=== PATIENT | male | born 1955 | race Caucasian/White ===

== ENCOUNTER → 2017-04-16 | Outpatient (CLI) | payer BC ==
[2017-04-16 08:20] LABS: Basophils # (A) 0.2 k/uL (0-0.2); Basophils % (A) 1 %; CH 31.7; CHCM 33.1; Eosinophils # (A) 0.4 k/uL (0-0.7); Eosinophils % (A) 3 %; HCT 49.5 % (39.0-53.0); HDW 2.68; Luc # (Auto) 0.24; Luc % (Auto) 2; Lymphocytes # (A) 3.5 k/uL (1.0-4.8); Lymphocytes % (A) 28 %; MCH 31.1 pg (25.0-35.0); MCHC 32.3 g/dL (31.0-37.0); MCV 96.3 fL (80.0-100.0); Mean Platelet Volume 9.8; Monocytes # (A) 0.7 k/uL (0-1.0); Monocytes % (A) 6 %; Neutrophils # (A) 7.6 k/uL (1.3-7.7); Neutrophils % (A) 60 %; RBC 5.14 m/uL (4.30-5.90); RDW 14.5 % (11.5-15.5); WBC 12.6 k/uL (3.8-10.6); WBC (Perox) 12.17
[2017-04-16 08:32] LABS: Appearance,Urine Clear (Clear); Bacteria,Urine Rare /hpf; Bilirubin,Urine Negative (Negative); Glucose,Urine (UA) Negative (Negative); Ketones,Urine Negative (Negative); Leukocyte Esterase,Urine Negative (Negative); Mucus,Urine Rare /hpf; Nitrite,Urine Negative (Negative); Particle Count 1411; Protein,Urine Trace (Negative); RBC,Urine <1 /hpf (0-5); Squamous Epithelial Cell,Urine <1 /hpf (0-4); UA Billing (MACRO vs. MICRO) MICRO; Urobilinogen,Urine <2.0 mg/dL (<2.0); WBC,Urine 1 /hpf (0-5)
[2017-04-16 10:36] LABS: ALT 21 U/L (21-72); AST 19 U/L (17-59); Alkaline Phosphatase 80 U/L (38-126); Anion Gap 8 mmol/L; Blood Urea Nitrogen 15 mg/dL (9-20); Calcium 9.6 mg/dL (8.4-10.2); Carbon Dioxide 26 mmol/L (22-30); Chloride 104 mmol/L (98-107); Cholesterol 121 mg/dL (<200); Creatine Kinase 73 U/L (55-170); Glucose 139 mg/dL (74-99); HDL Cholesterol 52 mg/dL (40-60); Non-African American GFR(MDRD) >60 (>60 ml/min/1.73 sqM); Potassium 5.3 mmol/L (3.5-5.1); Sodium 138 mmol/L (137-145); Total Bilirubin 0.4 mg/dL (0.2-1.3); Uric Acid 4.7 mg/dL (3.5-8.5)
[2017-04-16 11:02] LABS: Prostate Specific Antigen 0.25 ng/mL (0.00-4.00)
[2017-04-16 17:34] LABS: Urine Creatinine 142.6 mg/dL
== END | disposition home or self-care (01) ==
LOC: LABWHC1 07:50
PROVIDERS: ATTEND Internal Medicine
DX: E78.1 Pure hyperglyceridemia (principal); I10 Essential (primary) hypertension; I25.10 Atherosclerotic heart disease of native coronary artery without angina pectoris; E11.9 Type 2 diabetes mellitus without complications; N40.0 Benign prostatic hyperplasia without lower urinary tract symptoms
CPT/HCPCS: 36415; 80053; 80061; 81001; 82043; 82306; 82550; 82570; 83036; 84153; 84439; 84443; 84550; 85025

== ENCOUNTER → 2018-01-05 | Outpatient (CLI) | payer BC | END | disposition home or self-care (01) | LOC: SLEEP 15:51 | PROVIDERS: ATTEND Internal Medicine | DX: Z53.9 Procedure and treatment not carried out, unspecified reason (principal) ==

== ENCOUNTER → 2018-09-11 | Outpatient (CLI) | payer BC ==
--- NOTE | 2018-09-12 04:57 | US ---
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 TECHNIQUE: Carotid duplex ultrasound examination. Indirect Doppler criteria is utilized. FINDINGS: EXAM MEASUREMENTS: RIGHT: Peak Systolic Velocity (PSV) cm/sec ----- Right CCA: 64.5 ----- Right ICA: 82.2 ----- Right ECA: 181.3 ICA/CCA ratio: 1.3 RIGHT: End Diastole cm/sec ----- Right CCA: 16.1 ----- Right ICA: 26.0 ----- Right ECA: 24.8 LEFT: Peak Systolic Velocity (PSV) cm/sec ----- Left CCA: 85.4 ----- Left ICA: 83.3 ----- Left ECA: 156.7 ICA/CCA ratio: 1.0 LEFT: End Diastole cm/sec ----- Left CCA: 21.9 ----- Left ICA: 30.4 ----- Left ECA: 22.0 VERTEBRALS (direction of flow): Right Vertebral: not visualized Left Vertebral: Antegrade Rhythm: Normal Coat Room Attendant notes: Atherosclerotic changes in bilateral bulbs extending into both the ICA and ECA adeel aterally. Bilateral ECA velocities are elevated suggesting mild or moderate stenoses. IMPRESSION: Moderate atherosclerotic changes at both bifurcations without hemodynamically significant ICA stenosi s on either side. Criteria for Assigning % of Stenosis / Diameter reduction (Estimation based on the indirect measurements of the internal carotid artery velocities (ICA PSV). 1. Normal (no stenosis)=ICA PSV < 125 cm/s: ratio < 2.0: ICA EDV<40 cm/s. 2. Less than 50% stenosis=ICA PSV < 125 cm/s: ratio < 2.0: ICA EDV<40 cm/s. 3. 50 to 69% stenosis=ICA PSV of 125 to 230 cm/s: ration 2.0 ? 4.0: ICA EDV 40-100 cm/s. 4. Greater than 70% stenosis to near occlusion= ICA PSV > 230 cm/s: ratio > 4.0: ICA EDV > 100 cm/s. 5. Near occlusion= ICA PSV velocities may be low or undetectable: variable ratio and ICA EDV. 6. Total occlusion=unable to detect flow.
--- NOTE | 2018-09-12 11:27 | ECHOF ---
Referral Reason:I65.23 Occlusion and stenosis of bilat cartotids MEASUREMENTS -------- HEIGHT: 165.1 cm WEIGHT: 90.7 kg BP: RVIDd: 3.0 cm (< 3.3) IVSd: 1.3 cm (0.6 - 1.1) LVIDd: 3.7 cm (3.9 - 5.3) LVPWd: 1.4 cm (0.6 - 1.1) IVSs: 1.4 cm LVIDs: 3.2 cm LVPWs: 1.3 cm LA Diam: 3.9 cm (2.7 - 3.8) Ao Diam: 2.8 cm (2.0 - 3.7) AV Cusp: 0.8 cm (1.5 - 2.6) LA Diam: 4.0 cm (2.7 - 3.8) MV EXCURSION: 15.618 mm (> 18.000) MV EF SLOPE: 91 mm/s (70 - 150) EPSS: 0.3 cm MV E Johnny: 0.67 m/s MV DecT: 304 ms MV A Johnny: 1.00 m/s MV E/A Ratio: 0.67 AV maxP.45 mmHg AV meanP.33 mmHg RAP: 5.00 mmHg RVSP: 21.52 mmHg FINDINGS -------- Sinus rhythm. This was a technically adequate study. The left ventricular size is normal. There is mild concentric left ventricular hypertrophy. Overa ll left ventricular systolic function is normal with, an EF between 55 - 60 %. The right ventricle is normal in size. The left atrial size is normal. Aortic valve is trileaflet and is mildly thickened. There is mild aortic stenosis present. Peak/m jethro gradient across the Aortic Valve is 18.45mmHg / 10.33mmHg. Mild mitral annular calcification present. Mild mitral regurgitation is present. Mild tricuspid regurgitation present. There is no evidence of pulmonary hypertension. The right v entricular systolic pressure, as measured by Doppler, is 21.52mmHg. The aortic root size is normal. There is no pericardial effusion. CONCLUSIONS -------- 1. The left ventricular size is normal. 2. There is mild concentric left ventricular hypertrophy. 3. Overall left ventricular systolic function is normal with, an EF between 55 - 60 %. 4. The right ventricle is normal in size. 5. The left atrial size is normal. 6. Aortic valve is trileaflet and is mildly thickened. 7. There is mild aortic stenosis present. 8. Peak/mean gradient across the Aortic Valve is 18.45mmHg / 10.33mmHg. 9. Mild mitral annular calcification present. 10. Mild mitral regurgitation is present. 11. Mild tricuspid regurgitation present. 12. There is no evidence of pulmonary hypertension. 13. The right ventricular systolic pressure, as measured by Doppler, is 21.52mmHg. 14. The aortic root size is normal. 15. There is no pericardial effusion. ANDROID DEVELOPER: Jadyn Moore RDCS
== END | disposition home or self-care (01) ==
LOC: RADECHMAIN 14:47
PROVIDERS: ATTEND Internal Medicine
DX: I65.23 Occlusion and stenosis of bilateral carotid arteries (principal); I08.3 Combined rheumatic disorders of mitral, aortic and tricuspid valves
CPT/HCPCS: 93306; 93880

== ENCOUNTER → 2019-07-31 | Outpatient (CLI) | payer BC ==
[~2019-07-31] MED LIST: REGADENOSON 0.4 MG/5 ML SYRINGE IV ONE
[2019-07-31 09:35] LABS: Basophils # (A) 0.2 k/uL (0-0.2); Basophils % (A) 2 %; Eosinophils # (A) 0.4 k/uL (0-0.7); Eosinophils % (A) 5 %; HCT 47.4 % (39.0-53.0); HGB 15.4 gm/dL (13.0-17.5); Lymphocytes # (A) 2.6 k/uL (1.0-4.8); Lymphocytes % (A) 27 %; MCH 30.4 pg (25.0-35.0); MCHC 32.4 g/dL (31.0-37.0); MCV 93.8 fL (80.0-100.0); Mean Platelet Volume 10.7; Monocytes # (A) 0.6 k/uL (0-1.0); Monocytes % (A) 7 %; Neutrophils # (A) 5.6 k/uL (1.3-7.7); Neutrophils % (A) 58 %; Platelet Count 210 k/uL (150-450); RBC 5.05 m/uL (4.30-5.90); WBC 9.7 k/uL (3.8-10.6)
[2019-07-31 09:57] LABS: ALT 14 U/L (4-49); AST 26 U/L (17-59); African American GFR (CKD) >90 (>60 ml/min/1.73 sqM); Alkaline Phosphatase 71 U/L (38-126); Anion Gap 9 mmol/L; Blood Urea Nitrogen 19 mg/dL (9-20); Calcium 9.5 mg/dL (8.4-10.2); Carbon Dioxide 26 mmol/L (22-30); Chloride 106 mmol/L (98-107); Cholesterol 163 mg/dL (<200); Creatine Kinase 93 U/L (55-170); Glucose 116 mg/dL (74-99); HDL Cholesterol 44 mg/dL (40-60); LDL Cholesterol,Calculated 66 mg/dL (0-99); Non-African American GFR(CKD) 86 (>60 ml/min/1.73 sqM); Potassium 5.2 mmol/L (3.5-5.1); Sodium 141 mmol/L (137-145); Total Bilirubin 0.6 mg/dL (0.2-1.3); Total Protein 7.2 g/dL (6.3-8.2); Triglycerides 267 mg/dL (<150); Uric Acid 5.2 mg/dL (3.5-8.5)
[2019-07-31 10:12] LABS: T4, Free (Free Thyroxine) 1.03 ng/dL (0.78-2.19)
--- NOTE | 2019-07-31 14:03 | EST ---
EXERCISE STRESS AGE: 63 SEX: M HT: 64" WT: 200 PROTOCOL: Lexiscan Cardiolite Stress Test HEART RATE REST: 82 BLOOD PRESSURE REST: 143/83 MAXIMUM HEART RATE ACHIEVED: 102 MAXIMUM BLOOD PRESSURE: 158/76 INDICATIONS: Chest pain. CLINICAL INFORMATION: A Lexiscan Cardiolite study was performed. Resting EKG shows normal sinus rhythm with normal GA interval and QRS duration and normal ST-T waves. No ST-segment depression suggestive of ischemia is noted. Results of the nuclear study will follow. GUIL / IJN: [id number] /
--- NOTE | 2019-07-31 15:41 | NM ---
EXAMINATION TYPE: NM stress lexiscan cardiolite DATE OF EXAM: 07/31/2019 COMPARISON: NONE HISTORY: Angina of effort TECHNIQUE: After the intravenous administration of 9.78 mCi Tc 99m Sestamibi - Cardiolite resting SP ECT images acquired 50 minutes post injection. The patient received 0.4mg Lexiscan, 24.8 mCi Tc 99m Sestamibi - Stress images obtained [address] injection FINDINGS: There is diminished radiotracer accumulation along the inferior wall from the midportion to the cardiac apex on stress images. This has a more normal radiotracer distribution on the resting im ages. Gated wall motion is normal. Ejection fraction of 62% is normal. There may be some dyskinesia o f the distal inferior and anterior espinal and gated wall motion. IMPRESSION: 1. Stress-induced ischemic change mid to inferior wall to the cardiac apex. 2. Normal ejection fraction. 3. Some mild dyskinesia of the distal septal and inferior espinal may be present on wall motion. A [place] critical message alert has been initiated for Rickie Reyes MD via the [employer] System on 07/31/2019 3:38 PM. This message alert has been sent to Rickie Reyes MD via th e preferences provided by the clinician for the receipt of Radiology Critical Findings. Message ID [id number].
[2019-07-31 17:48] LABS: Hemoglobin A1C 8.8 % (4.0-6.0)
== END | disposition home or self-care (01) ==
LOC: RADNMMAIN 08:33
PROVIDERS: ATTEND Internal Medicine
DX: I25.89 Other forms of chronic ischemic heart disease (principal); I10 Essential (primary) hypertension; E78.2 Mixed hyperlipidemia; E11.9 Type 2 diabetes mellitus without complications; N40.0 Benign prostatic hyperplasia without lower urinary tract symptoms
CPT/HCPCS: 93017; 84439; 84153; 80061; 80053; 82550; 84443; 84550; 85025; 83036; 78452; A9500; J2785

== ENCOUNTER → 2019-08-13 | Day surgery (SDC) | payer BC ==
[2019-08-10 10:04] VITALS: BMI 34.6
[~2019-08-13] MED LIST changes: +ALPRAZolam 0.25 MG TAB PO PRN; +ALPRAZolam 0.5 MG TAB PO PRN; +ASPIRIN 325 MG TAB PO SCH; +ASPIRIN 325 MG TAB PO STA; +ASPIRIN 81 MG PO SCH; +HEPARIN SODIUM 1,000 UN/ML (10ML VL) IV ONE; +HEPARIN SODIUM 1,000 UN/ML (10ML VL) ONE; +IOPAMIDOL-370 125ML BTL INJ ONE; +LIDOCAINE 1% INJ 10MG/ML (20 ML MDV) ONE; +LIDOCAINE 1% INJ 10MG/ML (20 ML MDV) SQ ONE; +LOSARTAN 50 MG TAB PO SCH; +METOPROLOL TARTRATE 50 MG TAB PO SCH; +MIDAZOLAM 2 MG/2 ML VIAL IV ONE; +MUPIROCIN 2% OINT 22 GM TUBE NASAL SCH; +NITROGLYCERIN SL TABS 0.4 MG TAB SUBLINGUAL PRN; +NON FORMULARY DRUG (Sitagliptin 100 MG) PO SCH; -REGADENOSON 0.4 MG/5 ML SYRINGE IV ONE; +ROSUVASTATIN CALCIUM 40 MG PO SCH; +RX INFO: IV CONTRAST WAS GIVEN 1 EACH MISC MISCELLANE PRN; +SODIUM CHLORIDE 0.9% 1,000 ML IV ONE; +SODIUM CHLORIDE 0.9% 1,000 ML IV SCH; +SODIUM CHLORIDE 0.9% 1,000 ML in EMPTY BAG 1 BAG IV ONE; +SPIRONOLACTONE 25 MG TAB PO SCH; +VERAPAMIL 2.5 MG/ML 2 ML AMP ONE; +VERAPAMIL SYRINGE (5 MG/10 ML) INTRAARTER ONE; +fentaNYL (PF) 50 MCG/ML 2 ML AMP IV ONE; +fentaNYL (PF) 50 MCG/ML 2 ML AMP ONE
[2019-08-13 06:58] LABS: Glucose,Whole Blood 209 mg/dL (75-99)
[2019-08-13 07:03] VITALS: RESP 18; TEMP 98.3
--- NOTE | 2019-08-13 08:45 | CC ---
CARDIAC CATHETERIZATION REPORT Mr. Lozada is a 63-year-old male with known history of coronary artery disease, history of stenting in 2011, history of hypertension, hyperlipidemia and diabetes mellitus as well as chronic tobacco use, who presented with symptoms of progressive dyspnea and a positive myocardial perfusion imaging. In view of that, recommendation was made regarding cardiac catheterization. The procedure as well as the risks and the complications were discussed with the patient who is in full understanding and agreement. 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 Using Xylocaine anesthesia in the Seldinger technique, a 6-Cambodian sheath was introduced in the right radial artery. Selective right and left coronary angiography performed using 5-Cambodian 3.5 bend right and left Jamie catheter. Multiple views of the coronary artery including hemiaxial views were obtained. Following that, 5-Cambodian tight pigtail catheter was introduced in the left ventricle and a 30-degree ORTEZ view of the left ventricle was obtained. Following that, catheter and sheaths were removed. Hemostasis was obtained with deployment of a TR band. There was no immediate complication. Patient was returned to his room in stable condition. Of note, the patient received 5000 units of intravenous heparin as well as intra-arterial verapamil. FINDINGS: FLUOROSCOPY: There was severe calcification involving the left anterior descending artery. LEFT MAIN: This is a large-sized vessel bifurcating in left circumflex, left anterior descending artery. Left main coronary artery has an ostial 30% plaque. The rest of the vessel has no high-grade stenosis. LEFT ANTERIOR DESCENDING ARTERY: This is a large-sized vessel reaching to the apex giving rise to a large septal drafter castings. At the site of the septal drafter castings, there is a complex 99% stenosis. Prior to that, there is a tubular 60% plaque in a heavily calcified vessel. The rest of the vessel has no high-grade stenosis. LEFT CIRCUMFLEX: This is a nondominant vessel giving rise to a large obtuse marginal branch. The stented segment in the obtuse marginal branch is patent. The proximal segment of the left circumflex has an eccentric 60% plaque. The rest of the vessel has no high-grade stenosis. RIGHT CORONARY ARTERY: This vessel is totally occluded proximally with no antegrade flow. COLLATERALS: There is collateral from the left coronary system toward the right PDA. LEFT VENTRICULOGRAM: Left ventriculogram was performed in 30-degree ORTEZ view and revealed normal left ventricular size and systolic function. The ejection fraction is 60%. There was no significant mitral regurgitation. There was an abdominal aortic aneurysm noted that appears to be small to moderate in size. HEMODYNAMICS: There was no gradient across the aortic valve. The left ventricular end-diastolic pressure was 12 to 14 mmHg. CONCLUSION: 1. Calcified coronary arteries. 2. Critical stenosis involving the proximal LAD. 3. Significant stenosis in the proximal left circumflex. 4. Chronically occluded right coronary artery with collateral from the left system. 5. Normal left ventricular size and systolic function with evidence of abdominal aortic aneurysm. RECOMMENDATION: In view of finding anatomy, I recommend proceeding with evaluation for possible coronary artery bypass grafting in view of the history of diabetes and the anatomy. Those findings and recommendation were discussed with the patient and his family and they are in full understanding and agreement. Duration of procedure 24 minutes. MMODL / PJN: [id number] /
--- NOTE | 2019-08-13 08:48 | LTR ---
August 13, 2019 Re: Pb Alleene Dear Dr. Reyes: I had the opportunity to perform cardiac catheterization on Mr. Lozada at [facility] on the 13 of August and a full copy of the procedure note will be forwarded you. In brief, he was found to have calcified coronary arteries with severe triple- vessel coronary artery disease. In view of that and in view of the history of diabetes mellitus, I recommend proceeding with evaluation for possible coronary artery bypass grafting. I will keep you updated on his progress and thank you again for allowing me the opportunity to participate in his care. Please feel free to call for any questions. Sincerely yours, MD GUI StaplesL / PJN: [id number] /
--- NOTE | 2019-08-13 10:24 | XR ---
EXAMINATION TYPE: XR chest 2V DATE OF EXAM: 08/13/2019 COMPARISON: Chest x-ray June 06, 2011. HISTORY: Pre-Open cardiac surgery. TECHNIQUE: Frontal and lateral views of the chest are obtained. FINDINGS: Overlying EKG leads. There is chronic parenchymal change without suspicious focal air spac e opacity, pleural effusion, or pneumothorax seen. The cardiac silhouette size is stable and enlarge d. Multilevel spurring in the spine. IMPRESSION: Chronic changes and cardiomegaly without acute pulmonary process.
[2019-08-13 11:48] LABS: Basophils # (A) 0.1 k/uL (0-0.2); Basophils % (A) 1 %; Eosinophils # (A) 0.3 k/uL (0-0.7); Eosinophils % (A) 4 %; Lymphocytes % (A) 23 %; MCH 30.9 pg (25.0-35.0); MCHC 32.6 g/dL (31.0-37.0); MCV 94.7 fL (80.0-100.0); Mean Platelet Volume 10.2; Monocytes # (A) 0.3 k/uL (0-1.0); Monocytes % (A) 3 %; Neutrophils # (A) 5.7 k/uL (1.3-7.7); Neutrophils % (A) 67 %; Platelet Count 180 k/uL (150-450); RBC 4.54 m/uL (4.30-5.90); RDW 13.6 % (11.5-15.5); WBC 8.6 k/uL (3.8-10.6)
[2019-08-13 11:54] LABS: ALT 16 U/L (4-49); AST 29 U/L (17-59); African American GFR (CKD) >90 (>60 ml/min/1.73 sqM); Albumin 3.7 g/dL (3.5-5.0); Alkaline Phosphatase 67 U/L (38-126); Anion Gap 9 mmol/L; Blood Urea Nitrogen 17 mg/dL (9-20); Calcium 8.8 mg/dL (8.4-10.2); Carbon Dioxide 23 mmol/L (22-30); Chloride 105 mmol/L (98-107); Glucose 295 mg/dL (74-99); Magnesium 1.8 mg/dL (1.6-2.3); Non-African American GFR(CKD) >90 (>60 ml/min/1.73 sqM); Potassium 4.4 mmol/L (3.5-5.1); Sodium 137 mmol/L (137-145); Total Bilirubin 0.4 mg/dL (0.2-1.3); Total Protein 6.7 g/dL (6.3-8.2)
[2019-08-13 12:05] LABS: INR 0.9 (<1.2); Partial Thromboplastin Time 24.4 sec (22.0-30.0); Prothrombin Time 9.7 sec (9.0-12.0)
--- NOTE | 2019-08-13 12:36 | US ---
EXAMINATION TYPE: US carotid duplex BILAT DATE OF EXAM: 08/13/2019 COMPARISON: US carotid September 11 2018 CLINICAL HISTORY: Pre-Op Cardiac Surgery. EXAM MEASUREMENTS: RIGHT: Peak Systolic Velocity (PSV) cm/sec ----- Right CCA: 59.0 ----- Right ICA: 83.9 ----- Right ECA: 190.8 ICA/CCA ratio: 1.4 RIGHT: End Diastole cm/sec ----- Right CCA: 12.2 ----- Right ICA: 23.0 ----- Right ECA: 21.7 LEFT: Peak Systolic Velocity (PSV) cm/sec ----- Left CCA: 71.1 ----- Left ICA: 88.1 ----- Left ECA: 163.8 ICA/CCA ratio: 1.2 LEFT: End Diastole cm/sec ----- Left CCA: 15.6 ----- Left ICA: 29.5 ----- Left ECA: 12.6 VERTEBRALS (direction of flow): Right Vertebral: Antegrade Left Vertebral: Antegrade Rhythm: Normal Bilateral intimal thickening, plaque bilateral bulb and proximal ICA and ECA, elevated velocities - r ight proximal ECA and left proximal ECA, no significant stenosis. Persistent moderate eccentric plaque centered bilateral carotid bulb level. Velocity measurements and ratios in visualized portion of both internal carotid arteries remains within normal limits. IMPRESSION: Moderate atherosclerotic changes bilaterally without hemodynamically significant stenosi s in either internal carotid artery. Criteria for Assigning % of Stenosis / Diameter reduction (Estimation based on the indirect measurements of the internal carotid artery velocities (ICA PSV). 1. Normal (no stenosis)=ICA PSV < 125 cm/s: ratio < 2.0: ICA EDV<40 cm/s. 2. Less than 50% stenosis=ICA PSV < 125 cm/s: ratio < 2.0: ICA EDV<40 cm/s. 3. 50 to 69% stenosis=ICA PSV of 125 to 230 cm/s: ration 2.0 ? 4.0: ICA EDV 40-100 cm/s. 4. Greater than 70% stenosis to near occlusion= ICA PSV > 230 cm/s: ratio > 4.0: ICA EDV > 100 cm/s. 5. Near occlusion= ICA PSV velocities may be low or undetectable: variable ratio and ICA EDV. 6. Total occlusion=unable to detect flow.
[2019-08-13 12:39] VITALS: BP 138/76; PULSE 78
[2019-08-13 13:36] LABS: Appearance,Urine Clear (Clear); Bilirubin,Urine Negative (Negative); Blood,Urine Negative (Negative); Color,Urine Yellow; Glucose,Urine (UA) 4+ (Negative); Ketones,Urine Negative (Negative); Leukocyte Esterase,Urine Negative (Negative); Nitrite,Urine Negative (Negative); PH, Urine 5.5 (5.0-8.0); Protein,Urine Negative (Negative); Urobilinogen,Urine <2.0 mg/dL (<2.0)
--- NOTE | 2019-08-13 13:53 | P.GSCN ---
History of Present Illness Consult date: 08/13/19 Reason for Consult: Coronary artery disease Requesting physician: Celina Mckeon History of present illness: This is a 63-year-old gentleman who follows on an outpatient basis with Dr. Reyes. He has a previous medical history of known coronary artery disease with prior stenting and myocardial infarction, hypertension, hyperlipidemia, diabetes mellitus, obesity, umbilical and epigastric hernia, tobacco dependence, and family history of significant premature coronary artery disease in both his dad and 2 brothers. He reports she's had increased shortness of breath with exertion but denies any chest pain or any other symptoms. He underwent stress testing which demonstrated stress-induced ischemic change along the inferior wall from the mid portion to the apex. He was referred to Dr. Mckeon from [facility] and was recommended to undergo heart catheterization which was completed this morning and which demonstrated heavily calcified left anterior descending artery with 99% proximal stenosis, proximal left circumflex stenosis 60%, and chronic total occlusion of the right coronary artery with col lateral fill from the left side. Due to these findings Dr. Luna from cardiothoracic surgery was consulted for surgical revascularization recommendations. Review of Systems Review of systems was completed and was negative except as noted - Cardiovascular Reports dyspnea on exertion Past Medical History Past Medical History: Coronary Artery Disease (CAD), COPD, Diabetes Mellitus, Hyperlipidemia, Hypertension, Myocardial Infarction ([place]) Additional Past Medical History / Comment(s): Umbilical and epigastric hernia Last Myocardial Infarction Date:: 2010 History of Any Multi-Drug Resistant Organisms: None Reported Past Surgical History: Heart Catheterization With Stent Past Anesthesia/Blood Transfusion Reactions: No Reported Reaction Additional Past Anesthesia/Blood Transfusion Reaction / Comm: no surgical hx Date of Last Stent Placement:: 2010 Past Psychological History: No Psychological Hx Reported Additional Psychological History / Comment(s): Quit smoking 1 week ago, prior to that has smoked for greater than 45 years approximately a pack a day Smoking Status: Current every day smoker Past Alcohol Use History: None Reported Past Drug Use History: None Reported - Past Family History Mother Family Medical History: No Reported History Additional Family Medical History / Comment(s): Mother of "complications from obesity" Father Family Medical History: Coronary Artery Disease (CAD), Myocardial Infarction ([place]) Additional Family Medical History / Comment(s): Father of heart attack before the age of 6060 years old Brother(s) Family Medical History: Coronary Artery Disease (CAD) Additional Family Medical History / Comment(s): 2 brothers with premature coronary artery disease before the age of 60, 1 brother who from heart failure Medications and Allergies Home Medications Medication Instructions Recorded Confirmed Type Losartan [Cozaar] 50 mg PO DAILY 08/10/19 08/13/19 History Metoprolol Tartrate [Lopressor] 50 mg PO BID 08/10/19 08/13/19 History Rosuvastatin Calcium 40 mg PO DAILY 08/10/19 08/13/19 History Spironolactone 25 mg PO DAILY 08/10/19 08/13/19 History metFORMIN HCL [metFORMIN HCL ER] 1,500 mg PO W/SUPPER 08/10/19 08/13/19 History sitaGLIPtin [Januvia] 100 mg PO DAILY 08/10/19 08/13/19 History Aspirin 81 mg PO DAILY chew 08/13/19 Rx Allergies Allergy/AdvReac Type Severity Reaction Status Date / Time Penicillins Allergy Rash/Hives Verified 08/13/19 06:45 Surgical - Exam Vital Signs Temp Pulse Resp BP Pulse Ox 98.3 F 84 18 137/79 94 L 08/13/19 07:01 08/13/19 07:01 08/13/19 07:01 08/13/19 07:01 08/13/19 07:01 - General well developed, well nourished, no distress, no pain, obese - Eyes PERRL, normal ocular movement - ENT no hearing loss, poor chcf - Neck no masses, no bruits, trachea midline - Respiratory Lungs sounds diminished bilaterally. Respirations even, nonlabored. Currently on room air with oxygen saturation 94%. No chest wall deformities. No clubbing or cyanosis present. - Cardiovascular S1, S2 present. Regular rate and rhythm, sinus rhythm on telemetry. Palpable peripheral pulses bilaterally. Trace bilateral lower extremity edema present. No calf pain or tenderness noted. No varicosities noted. Equivocal Benito's test to the left arm. Right radial heart catheterization site with T band in place. - Abdomen Abdomen: soft, non tender, bowel sounds Hernia: epigastric, umbilical - Genitourinary Deferred - Rectum Deferred - Integumentary no rash, no growths - Neurologic normal coordination, normal sensation - Musculoskeletal normal posture - Psychiatric oriented to time, oriented to person, oriented to place, speech is normal, memory intact Results - Labs 08/13/19 11:10 08/13/19 11:10 Abnormal Lab Results - Last 24 Hours (Table) 08/13/19 08/13/19 Range/Units 06:54 11:10 Glucose 295 H (74-99) mg/dL POC Glucose (mg/dL) 209 H (75-99) mg/dL Diabetes panel 08/13/19 08/13/19 Range/Units 06:50 11:10 Sodium 137 (137-145) mmol/L Potassium 4.4 4.4 (3.5-5.1) mmol/L Chloride 105 (98-107) mmol/L Carbon Dioxide 23 (22-30) mmol/L BUN 17 (9-20) mg/dL Creatinine 0.83 (0.66-1.25) mg/dL Glucose 295 H (74-99) mg/dL Calcium 8.8 (8.4-10.2) mg/dL AST 29 (17-59) U/L ALT 16 (4-49) U/L Alkaline Phosphatase 67 (38-126) U/L Total Protein 6.7 (6.3-8.2) g/dL Albumin 3.7 (3.5-5.0) g/dL Thyroid panel 08/13/19 Range/Units 11:10 TSH 1.140 (0.465-4.680) mIU/L Calcium panel 08/13/19 Range/Units 11:10 Calcium 8.8 (8.4-10.2) mg/dL Albumin 3.7 (3.5-5.0) g/dL Pituitary panel 08/13/19 08/13/19 Range/Units 06:50 11:10 Sodium 137 (137-145) mmol/L Potassium 4.4 4.4 (3.5-5.1) mmol/L Chloride 105 (98-107) mmol/L Carbon Dioxide 23 (22-30) mmol/L BUN 17 (9-20) mg/dL Creatinine 0.83 (0.66-1.25) mg/dL Glucose 295 H (74-99) mg/dL Calcium 8.8 (8.4-10.2) mg/dL TSH 1.140 (0.465-4.680) mIU/L Adrenal panel 08/13/19 08/13/19 Range/Units 06:50 11:10 Sodium 137 (137-145) mmol/L Potassium 4.4 4.4 (3.5-5.1) mmol/L Chloride 105 (98-107) mmol/L Carbon Dioxide 23 (22-30) mmol/L BUN 17 (9-20) mg/dL Creatinine 0.83 (0.66-1.25) mg/dL Glucose 295 H (74-99) mg/dL Calcium 8.8 (8.4-10.2) mg/dL Total Bilirubin 0.4 (0.2-1.3) mg/dL AST 29 (17-59) U/L ALT 16 (4-49) U/L Alkaline Phosphatase 67 (38-126) U/L Total Protein 6.7 (6.3-8.2) g/dL Albumin 3.7 (3.5-5.0) g/dL - Imaging Chest x-ray: report reviewed, image reviewed Additional studies: Heart catheterization films, both current and previous were reviewed with Dr. Luna Assessment and Plan Assessment: 1. Coronary artery disease 2. History of myocardial infarction and stenting to the circumflex coronary artery in 2010 3. Hypertension 4. Hyperlipidemia 5. Diabetes with current hemoglobin A1c 8.8% 6. Obesity 7. Umbilical and epigastric hernia 8. Tobacco dependence with preoperative FEV1 63% of predicted 9. Family history of premature coronary artery disease Plan: The patient was seen and examined in the extended stay unit with Dr. Luna. Chart/diagnostics were reviewed. The usual perioperative course for coronary artery bypass graft surgery was discussed in detail with the patient and his family, all risks and benefits were reviewed, all questions were answered. Preoperative testing was initiated, will be reviewed, and STS risk score well be calculated and discussed with the patient and his family. We strongly encourage the patient to continue smoking cessation. We recommend continuing maximal medical therapy with aspirin, statin, beta blockers. We plan for elective coronary artery bypass surgery with left internal mammary artery, endoscopic vein harvesting, and possible left radial artery harvest during the first week in August. This was agreed upon with the patient and his family. May be discharged to home from our standpoint. Thank you Dr. Mckeon for this consult. We look forward to working with you in the care of your patient. Time with Patient: Greater than 30
[2019-08-13 14:03] LABS: Specific Gravity,Urine >1.050 (1.001-1.035)
[2019-08-13 17:27] LABS: Hepatitis A Antibody IgM Non-Reactive (Non-Reactive); Hepatitis B Core IgM Non-Reactive (Non-Reactive); Hepatitis B Surface Antigen Non-Reactive (Non-Reactive); Hepatitis C IgG Antibody Non-Reactive (Non-Reactive)
[2019-08-13 17:44] LABS: Hemoglobin A1C 8.9 % (4.0-6.0)
--- NOTE | 2019-08-15 09:38 | P.ARTDOP ---
Arterial Doppler LOWER EXTREMITY ARTERIAL DOPPLER: DATE OF SERVICE: 08/13/2019 Reason for study: Preop CABG. Doppler waveforms: Multiphasic bilaterally throughout. Pulse volume recording: []. Pressure gradients: None. Ankle-brachial indices: Greater than 1 bilaterally. Toe pressures: [] on the right, [] on the left Impression: Normal study.
--- NOTE | 2019-08-15 09:40 | P.VSCSTY ---
Greater Saphenous Vein Mapping This is bilateral lower extremity greater saphenous vein mapping. Date of service: 08/13/2019 Vein quality and ultrasound appearance: We see no intraluminal thrombus or wall changes apparent. Vein size groin right : 8.1 x 8.0 groin left: 5.8 x 6.0 High thigh right: 4.8 x 3.7 high thigh left: 4.6 x 5 Mid thigh right: 3.4 x 3.9 mid thigh left: 3.8 x 4.6 Above-knee right: 3.1 x 3.4 above- knee left: 3.8 x 4 Below knee right: 2.9 x 3.3 below-knee left: 3.3 x 3.0 Mid calf right: 2.5 x 2.9 mid calf left: 2.9 x 2.8 Ankle right: 2.6 x 2.8 ankle left: 1.8 x 1.8 Impression: Usable vein bilaterally.
== END | disposition home or self-care (01) ==
LOC: CATHCVL 06:10
PROVIDERS: ATTEND Internal Medicine Interventional Cardiology
DX: I25.10 Atherosclerotic heart disease of native coronary artery without angina pectoris (principal); I25.84 Coronary atherosclerosis due to calcified coronary lesion; I10 Essential (primary) hypertension; F17.290 Nicotine dependence, other tobacco product, uncomplicated; E78.5 Hyperlipidemia, unspecified; I25.2 Old myocardial infarction; E78.00 Pure hypercholesterolemia, unspecified; E11.51 Type 2 diabetes mellitus with diabetic peripheral angiopathy without gangrene; Z95.5 Presence of coronary angioplasty implant and graft; I71.4 Abdominal aortic aneurysm, without rupture; Z82.49 Family history of ischemic heart disease and other diseases of the circulatory system; Z79.84 Long term (current) use of oral hypoglycemic drugs; Z79.82 Long term (current) use of aspirin; Z79.899 Other long term (current) drug therapy; Z88.0 Allergy status to penicillin
CPT/HCPCS: 94150; 93458; 86900; 86901; 80053; 80074; 84443; 83735; 84132; 85025; 85610; 85730; 86850; 81003; 87070; 83036; 71046; 93970; 93922; 93880; C1769; C1894; J2250; J2001; J3010; J1644; Q9967

== ENCOUNTER → 2019-08-23 | Outpatient (CLI) | payer BC ==
--- NOTE | 2019-08-23 09:29 | P.PN ---
Progress Note - Text Progress Note Date: 08/23/19 5 meter walk test: #1 3.10 sec #2 3.29 sec #3 3.42 sec Patient experienced no chest pain or shortness of breath
== END | disposition home or self-care (01) ==
LOC: LABPAT 08:17
PROVIDERS: ATTEND Surgery
DX: I25.10 Atherosclerotic heart disease of native coronary artery without angina pectoris (principal)
CPT/HCPCS: 93306; 93923; 93930

== ENCOUNTER 2019-08-29 06:38 | Inpatient (IN) | payer BC ==
[~2019-08-29 06:38] MED LIST changes: +ALBUMIN HUMAN 25% 50 ML IV ONE; +ALBUMIN HUMAN 5% 500 ML IVPB ONE; -ALPRAZolam 0.25 MG TAB PO PRN; -ALPRAZolam 0.5 MG TAB PO PRN; +ASPIRIN 325 MG TAB PO ONE; -ASPIRIN 325 MG TAB PO SCH; -ASPIRIN 325 MG TAB PO STA; -ASPIRIN 81 MG PO SCH; +ATORVASTATIN 10 MG TAB PO ONE; +CALCIUM CHLORIDE 100 MG/ML 10 ML SYRINGE IV ONE; +CHLORHEXIDINE GLUCONATE 15 ML CUP MUCOUS MEM ONE; +CLEVIDIPINE BUTYRATE 25 MG in EMPTY BAG 1 BAG IV ONE; +DEXTROSE 5% IN WATER 1,000 ML with POTASSIUM CHLORIDE 110 MEQ, MAGNESIUM SULFATE 16 MEQ... IV ONE; +DEXTROSE 5% IN WATER 1,000 ML with POTASSIUM CHLORIDE 25 MEQ, SODIUM CHLORIDE 2.5MEQ/ML... IRRIGATION ONE; +DILTIAZEM 125 MG in SODIUM CHLORIDE 0.9% 100 ML IV ONE; -HEPARIN SODIUM 1,000 UN/ML (10ML VL) ONE; +HEPARIN SODIUM,PORCINE 5,000 UNIT in SODIUM CHLORIDE 0.9% 500 ML 500 ML IV ONE; +INSULIN REGULAR 100 UNIT in SODIUM CHLORIDE 0.9% 100 ML IV ONE; -IOPAMIDOL-370 125ML BTL INJ ONE; +LACTATED RINGERS 1,000 ML IV ONE; -LIDOCAINE 1% INJ 10MG/ML (20 ML MDV) ONE; -LIDOCAINE 1% INJ 10MG/ML (20 ML MDV) SQ ONE; -LOSARTAN 50 MG TAB PO SCH; +MAGNESIUM SULFATE MG 500 MG/ML IV ONE; +MANNITOL 25% 12.5 GM/50 ML VIAL IV ONE; +METOPROLOL TARTRATE 12.5 MG TAB PO ONE; -METOPROLOL TARTRATE 50 MG TAB PO SCH; -MIDAZOLAM 2 MG/2 ML VIAL IV ONE; -MUPIROCIN 2% OINT 22 GM TUBE NASAL SCH; -NITROGLYCERIN SL TABS 0.4 MG TAB SUBLINGUAL PRN; +NITROGLYCERIN-D5W PMX 25 MG/250 ML BTL IV ONE; +NITROGLYCERIN-D5W PMX 50 MG in DEXTROSE/WATER 1 250ML.BAG IV ONE; -NON FORMULARY DRUG (Sitagliptin 100 MG) PO SCH; +NOREPINEPHRINE 4 MG in SODIUM CHLORIDE 0.9% 250 ML IV ONE; +PAPAVERINE 360 MG in SODIUM CHLORIDE 0.9% 90 ML IV ONE; +PHENYLEPHRINE 10 MG/ML VIAL IV ONE; +PHENYLEPHRINE 40 MG in SODIUM CHLORIDE 0.9% 250 ML IV ONE; +PROPOFOL 1,000 MG/100 ML VIAL IV ONE; +PROTAMINE SULFATE 10 MG/ML 25 ML VIAL IV ONE; +PROTAMINE SULFATE 250 MG in EMPTY BAG 1 BAG IV ONE; -ROSUVASTATIN CALCIUM 40 MG PO SCH; -RX INFO: IV CONTRAST WAS GIVEN 1 EACH MISC MISCELLANE PRN; +SODIUM BICARB 8.4% 50 ML SYR (1 MEQ/ML) IV ONE; -SODIUM CHLORIDE 0.9% 1,000 ML IV SCH; -SODIUM CHLORIDE 0.9% 1,000 ML in EMPTY BAG 1 BAG IV ONE; -SPIRONOLACTONE 25 MG TAB PO SCH; +TRANEXAMIC ACID 2,000 MG in SODIUM CHLORIDE 0.9% 80 ML IV ONE; -VERAPAMIL 2.5 MG/ML 2 ML AMP ONE; -VERAPAMIL SYRINGE (5 MG/10 ML) INTRAARTER ONE; +ceFAZolin 1,000 MG in SODIUM CHLORIDE 0.9% IRRIGATIO 1,000 ML IRRIGATION ONE; +ceFAZolin 2,000 MG in SODIUM CHLORIDE 0.9% 30 ML IVPB ONE; -fentaNYL (PF) 50 MCG/ML 2 ML AMP IV ONE; -fentaNYL (PF) 50 MCG/ML 2 ML AMP ONE
[2019-08-29 07:21] LABS: Glucose,Whole Blood 184 mg/dL (75-99)
[2019-08-29] MEDS ORDERED: PROTAMINE SULFATE 10 MG/ML 25 ML VIAL IV ONE (08:34)
[2019-08-29] MEDS ORDERED: PROPOFOL 10 MG/ML 20 ML VIAL IV ONE (08:34)
[2019-08-29] MEDS ORDERED: MAGNESIUM SULFATE 4 MEQ/ML 10ML VIAL ONE (08:34)
[2019-08-29] MEDS ORDERED: VECURONIUM 10 MG VIAL IV ONE (08:34)
[2019-08-29] MEDS ORDERED: fentaNYL (PF) 50 MCG/ML 50 ML VIAL ONE (08:34)
[2019-08-29] MEDS ORDERED: NITROGLYCERIN-D5W PMX 50 MG/250 ML BOTTLE IV ONE (08:34)
[2019-08-29] MEDS ORDERED: TRANEXAMIC ACID 1,000 MG/10 ML VIAL ONE (08:34)
[2019-08-29] MEDS ORDERED: fentaNYL (PF) 50 MCG/ML 2 ML AMP ONE (08:34)
[2019-08-29] MEDS ORDERED: SODIUM CHLORIDE 0.9% IRRIG 1,000 ML BTL IRRIGATION ONE (08:34)
[2019-08-29] MEDS ORDERED: MIDAZOLAM 2 MG/2 ML VIAL ONE (08:34)
[2019-08-29] MEDS ORDERED: LIDOCAINE 1% INJ 10MG/ML (20 ML MDV) ONE (08:34)
[2019-08-29] MEDS ORDERED: ELECTROLYTE-R (PH 7.4) 1,000 ML IV.SOLN IV ONE (08:34)
[2019-08-29] MEDS ORDERED: HEPARIN SODIUM,PORCINE 10,000 UNIT/ML 1 ML VIAL ONE (08:34)
[2019-08-29] MEDS ORDERED: SODIUM CHLORIDE 0.9% 250 ML BAG ONE (08:34)
[2019-08-29] MEDS ORDERED: METOCLOPRAMIDE 5 MG/ML 2 ML VIAL IVP PRN (16:13)
[2019-08-29] MEDS ORDERED: ONDANSETRON 4 MG/2 ML VIAL IVP PRN (16:13)
[2019-08-29] MEDS ORDERED: ALBUMIN HUMAN 5% 250 ML in EMPTY BAG 1 BAG IVPB PRN (16:13)
[2019-08-29] MEDS ORDERED: Potassium Replacement Protocol 1 EACH MISC MISCELLANE PRN (16:13)
[2019-08-29] MEDS ORDERED: AMIODARONE 300 MG in DEXTROSE 5% IN WATER 250 ML IV PRN ×2 (16:13)
[2019-08-29] MEDS ORDERED: BENZOCAINE/MENTHOL LOZENG 1 EACH LOZENGE MUCOUS MEM PRN (16:13)
[2019-08-29] MEDS ORDERED: IPRATROPIUM-ALBUTEROL 3 ML NEB INHALATION PRN (16:13)
[2019-08-29] MEDS ORDERED: Phosphorus Replacement Protoco 1 EACH MISC MISCELLANE PRN (16:13)
[2019-08-29] MEDS ORDERED: Magnesium Replacement Protocol 1 EACH MISC MISCELLANE PRN (16:13)
[2019-08-29] MEDS ORDERED: DEXTROSE 5% IN WATER 100 ML with AMIODARONE 150 MG IV PRN (16:13)
[2019-08-29] MEDS ORDERED: MORPHINE SULFATE 2 MG/ML SYRINGE IVP PRN (16:13)
[2019-08-29] MEDS ORDERED: AMIODARONE 360 MG in DEXTROSE 5% IN WATER 200 ML IV PRN ×2 (16:13)
[2019-08-29] MEDS ORDERED: NITROGLYCERIN-D5W PMX 50 MG in DEXTROSE/WATER 1 250ML.BAG IV SCH (16:15)
[2019-08-29 16:47] LABS: Glucose,Whole Blood 100 mg/dL (75-99)
[2019-08-29 16:58] LABS: Basophils # (A) 0.3 k/uL (0-0.2); Basophils % (A) 2 %; Eosinophils # (A) 0.1 k/uL (0-0.7); Eosinophils % (A) 1 %; Lymphocytes # (A) 1.4 k/uL (1.0-4.8); Lymphocytes % (A) 10 %; MCH 31.3 pg (25.0-35.0); MCHC 33.2 g/dL (31.0-37.0); MCV 94.2 fL (80.0-100.0); Mean Platelet Volume 10.7; Monocytes # (A) 0.9 k/uL (0-1.0); Monocytes % (A) 6 %; Neutrophils # (A) 11.2 k/uL (1.3-7.7); Neutrophils % (A) 80 %; Platelet Count 148 k/uL (150-450); RDW 13.8 % (11.5-15.5); WBC 14.1 k/uL (3.8-10.6)
[2019-08-29 17:03] LABS: HGB 10.3 gm/dL (13.0-17.5)
[2019-08-29 17:04] LABS: ALT 14 U/L (4-49); AST 58 U/L (17-59); African American GFR (CKD) >90 (>60 ml/min/1.73 sqM); Albumin 2.9 g/dL (3.5-5.0); Alkaline Phosphatase 27 U/L (38-126); Anion Gap 2 mmol/L; Blood Urea Nitrogen 15 mg/dL (9-20); Carbon Dioxide 29 mmol/L (22-30); Chloride 108 mmol/L (98-107); Glucose 94 mg/dL (74-99); Magnesium 2.9 mg/dL (1.6-2.3); Non-African American GFR(CKD) >90 (>60 ml/min/1.73 sqM); Potassium 4.8 mmol/L (3.5-5.1); Sodium 139 mmol/L (137-145); Total Bilirubin 0.5 mg/dL (0.2-1.3); Total Protein 4.8 g/dL (6.3-8.2)
[2019-08-29] MEDS: PHENYLEPHRINE 40 MG in SODIUM CHLORIDE 0.9% 250 ML IV SCH (17:05)
[2019-08-29 17:09] LABS: ABG Base Excess -0.1 mmol/L; ABG HCO3 28 mmol/L (21-25); ABG Oxygen Saturation 97.8 % (94-97); ABG PO2 132 mmHg (83-108); ABG TCO2 30 mmol/L (19-24)
[2019-08-29 17:11] LABS: INR 1.1 (<1.2); Partial Thromboplastin Time 22.7 sec (22.0-30.0); Prothrombin Time 11.2 sec (9.0-12.0)
[2019-08-29 17:16] LABS: ABG PCO2 72 mmHg (35-45); Allen Test Performed? N0
[2019-08-29 17:22] LABS: Ionized Calcium 4.6 mg/dL (4.5-5.3)
[2019-08-29] MEDS: PROPOFOL 1,000 MG in EMPTY BAG 1 BAG IV SCH ×2 (17:27→20:10)
--- NOTE | 2019-08-29 17:30 | XR ---
EXAMINATION TYPE: XR chest 1V portable DATE OF EXAM: 08/29/2019 COMPARISON: NONE HISTORY: Check line placement TECHNIQUE: Single view FINDINGS: Heart is normal. Costophrenic angles are clear. There is endotracheal tube 3 cm from the ca karoline. There is right jugular catheter with the tip in the right pulmonary artery. There is no pleural effusion. IMPRESSION: Endotracheal tube is in fairly good position. No pulmonary consolidation or heart failure .
[2019-08-29 17:34] LABS: Glucose,Whole Blood 139 mg/dL (75-99)
[2019-08-29] MEDS: INSULIN REGULAR 100 UNIT in SODIUM CHLORIDE 0.9% 100 ML IV SCH (18:16)
[2019-08-29] MEDS: ACETAMINOPHEN IV (For NPO) 1,000 MG in EMPTY BAG 1 BAG IVPB SCH ×2 (18:27→23:25)
[2019-08-29] MEDS: CLEVIDIPINE BUTYRATE 25 MG in EMPTY BAG 1 BAG IV SCH ×2 (18:28→20:32)
[2019-08-29] MEDS: SODIUM CHLORIDE 0.9% 1,000 ML IV SCH (18:28)
[2019-08-29] MEDS: KETOROLAC 30 MG/ML 1 ML VIAL IVP SCH ×2 (18:30→23:26)
[2019-08-29 18:36] LABS: Glucose,Whole Blood 128 mg/dL (75-99)
[2019-08-29 19:30] LABS: ABG Base Excess -0.8 mmol/L; ABG HCO3 25 mmol/L (21-25); ABG Oxygen Saturation 97.2 % (94-97); ABG PCO2 49 mmHg (35-45); ABG PH 7.32 (7.35-7.45); ABG PO2 115 mmHg (83-108); ABG TCO2 27 mmol/L (19-24)
[2019-08-29 19:32] LABS: Glucose,Whole Blood 124 mg/dL (75-99)
[2019-08-29 19:33] LABS: Allen Test Performed? no
[2019-08-29 19:46] LABS: Basophils # (A) 0.1 k/uL (0-0.2); Basophils % (A) 1 %; Eosinophils % (A) 0 %; HCT 29.3 % (39.0-53.0); HGB 9.7 gm/dL (13.0-17.5); Lymphocytes # (A) 0.5 k/uL (1.0-4.8); Lymphocytes % (A) 4 %; MCHC 33.1 g/dL (31.0-37.0); MCV 93.4 fL (80.0-100.0); Mean Platelet Volume 11.2; Monocytes # (A) 0.6 k/uL (0-1.0); Monocytes % (A) 5 %; Neutrophils # (A) 10.7 k/uL (1.3-7.7); Neutrophils % (A) 89 %; Platelet Count 141 k/uL (150-450); RBC 3.13 m/uL (4.30-5.90); RDW 13.8 % (11.5-15.5); WBC 12.1 k/uL (3.8-10.6)
[2019-08-29] MEDS ORDERED: IPRATROPIUM-ALBUTEROL 3 ML NEB INHALATION SCH (20:00)
[2019-08-29 20:38] LABS: Glucose,Whole Blood 188 mg/dL (75-99)
[2019-08-29] MEDS ORDERED: MUPIROCIN 2% OINT 22 GM TUBE NASAL ONE (20:45)
[2019-08-29 21:06] LABS: ABG Base Excess -2.1 mmol/L; ABG HCO3 23 mmol/L (21-25); ABG Oxygen Saturation 96.7 % (94-97); ABG PCO2 42 mmHg (35-45); ABG PH 7.36 (7.35-7.45); ABG PO2 87 mmHg (83-108); ABG TCO2 25 mmol/L (19-24)
[2019-08-29 21:08] LABS: Allen Test Performed? no
[2019-08-29 21:42] LABS: Glucose,Whole Blood 201 mg/dL (75-99)
[2019-08-29 22:32] LABS: Glucose,Whole Blood 198 mg/dL (75-99)
[2019-08-29 22:50] LABS: Basophils # (A) 0.1 k/uL (0-0.2); Basophils % (A) 1 %; Eosinophils % (A) 0 %; HCT 29.2 % (39.0-53.0); HGB 9.6 gm/dL (13.0-17.5); Lymphocytes # (A) 0.6 k/uL (1.0-4.8); Lymphocytes % (A) 5 %; MCH 30.8 pg (25.0-35.0); MCHC 32.8 g/dL (31.0-37.0); MCV 93.8 fL (80.0-100.0); Mean Platelet Volume 10.9; Monocytes # (A) 0.5 k/uL (0-1.0); Monocytes % (A) 5 %; Neutrophils # (A) 9.9 k/uL (1.3-7.7); Neutrophils % (A) 89 %; Platelet Count 142 k/uL (150-450); RBC 3.11 m/uL (4.30-5.90); RDW 13.9 % (11.5-15.5); WBC 11.2 k/uL (3.8-10.6)
--- NOTE | 2019-08-29 23:02 | OP ---
OPERATIVE REPORT DATE OF THE SURGERY: 08/29/2019. SURGEON: Dr. Celestine Luna. COMPLIANCE REVIEW SPECIALIST: Panfilo Sosa and Adina Small. ANESTHESIA: General endotracheal, Dr. Ashley Paulino. PREOPERATIVE DIAGNOSES: 1. Triple-vessel coronary artery disease with totally occluded collateralized right coronary artery. 2. Overall preserved left ventricular function. 3. Mild aortic valve stenosis. 4. Hypertension. 5. Hyperlipidemia. 6. Old myocardial infarction. 7. Diabetes mellitus. 8. Status post prior stenting in 2010 to the circumflex artery. POSTOPERATIVE DIAGNOSES: 1. Triple-vessel coronary artery disease with totally occluded collateralized right coronary artery. 2. Overall preserved left ventricular function. 3. Mild aortic valve stenosis. 4. Hypertension. 5. Hyperlipidemia. 6. Old myocardial infarction. 7. Diabetes mellitus. 8. Status post prior stenting in 2010 to the circumflex artery. PROCEDURE PERFORMED: 1. Triple coronary artery bypass grafting using the left internal mammary artery to the left anterior descending artery, the left radial artery from the aorta to the obtuse marginal artery, reverse saphenous vein graft from the aorta to the posterior descending artery. 2. Endoscopic harvesting of the left radial artery. 3. Endoscopic harvesting of the left greater saphenous vein. 4. Intraoperative transesophageal echocardiogram and epiaortic scanning. 5. Intraoperative graft flow measurements using the [employer] system. INDICATION FOR SURGERY: Patient is a 63-year-old gentleman worked up as an outpatient for dyspnea on exertion and chest pain, with prior history of CA and circumflex stenting and found to have triple-vessel disease with a totally occluded collateralized right coronary artery. The patient has metabolic syndrome. The patient is brought in today after a period of smoking cessation for triple-vessel carotid bypass grafting. The SDS risk was discussed with him. He understood it and agreed to proceed. DESCRIPTION OF THE PROCEDURE: The patient in supine position. Right internal jugular [place] catheter and right radial arterial line were placed. PA pressure was 40/20. Cardiac index was 2.4. Subsequently, patient was brought to the operative room where general endotracheal anesthesia was induced uneventfully. Acosta catheter was inserted. The chest, abdomen, both lower extremity and left upper extremity were prepped and draped using ChloraPrep. Ioban was used to cover the skin. Patient received 2 g of cefazolin intravenously. Transesophageal echocardiogram confirmed the preoperative finding of preserved systolic function, left ventricular hypertrophy with some diastolic dysfunction, mild aortic valve stenosis with some sclerosis of the aortic valve leaflets. Mild mitral valve regurgitation. A midline sternotomy was performed and the bone was moderately osteopenic. No bone wax was used. The left hemisternum was elevated. The left internal mammary artery was harvested in a somewhat skeletonized fashion. The left pleura was intentionally opened in this process and was sent and was drained with a 19-Afghan Prieto drain. The right pleura remained grossly intact. In the same setting, the left radial artery was initially exposed at the wrist. Clamping trial revealed preserved signal that was pulsatile and the O2 saturation probe placed on the left index finger. Subsequently, the radial artery was harvested endoscopically. The forearm incision was closed over a drain. The artery was prepared by incising the fascia all along its volar aspect and clipping all its branches. It was around 3 mm in diameter and of good quality. Also in the same setting, the left greater saphenous vein was harvested endoscopically from groin to mid lower leg level. The leg incisions were closed over a drain. The vein was prepared with we had a good segment of vein of around 4 mm in diameter and thin-walled to be used. A large amount of mediastinal fat was transected between 2 ties over the aorta. Epiaortic scanning at this point revealed some posterior wall disease, but no protruding atheroma. We had a clear area above the pulmonary artery for clamping. The pericardium was opened in an inverted T-fashion and a pericardial cradle was created. FINDINGS: Included a short aorta and a very fatty heart. There was calcified plaque at the origin of the innominate artery. After systemic heparinization and after placement of respective pledgeted pursestring, proximal artery cannulation with a 21-Afghan soft flow cannula and right atrial cannulation via the right atrial appendage with a 3-stage 29-Afghan cannula was performed. Antegrade as well as retrograde cardioplegia catheter were placed. The mammary artery was clipped distally and transected and had an excellent pulsatile flow in it. It was shortened and used up to its mid aspect in view of proximal LAD target. Cardiopulmonary bypass was initiated and with the patient temperature drifting down to 34 degrees Celsius, and the heart empty and beating we looked at the target. Again, the LAD was identified in its proximal to mid aspect and was around 2 mm in diameter, thin-walled. There was a peculiar medial branch that was seen on cath that was short in its tributaries and Cave septal and cardiac catheterization was left alone. Looking at the lateral wall we could quickly identify the obtuse marginal artery. For the inferior wall, we were able to identify the proximal aspect of the posterior descending artery. Aorta was clamped and during aortic clamping, myocardial protection was achieved with initial dose of 1 L of antegrade cold blood cardioplegia followed by 300 mL of retrograde cold blood cardioplegia. All subsequent doses were given retrograde as well as through the initially constructed graft to the posterior descending artery. The first distal anastomosis was achieved 1.5 mm thin-walled. The proximal aspect of the posterior descending artery beyond the diseased calcified plaque and a good segment of vein using Prolene 7-0 in continuous fashion. That vein was connected to a side-arm of the retrograde cardioplegia delivery system as mentioned above. The 2nd distal anastomosis was seen in the left radial artery and the obtuse marginal artery which was around 1.75 mm in diameter diving intra myocardial and at the diving point, there was an anterior calcified plaque and I elected to extend the arteriotomy through it. The anastomosis was completed using Prolene 7-0 in continuous fashion. We had enough length on the radial artery to reach the aorta. The third and last distal anastomosis was seen between the left internal mammary artery and the mid aspect of the left anterior descending artery which was around 1.75 mm in diameter thin-walled using Prolene 7-0 in continuous fashion. The mammary veins were affixed to the epicardium using Prolene 6 0 sutures. Satisfied with the distal anastomosis, rewarming was started. As we punched out 2 buttons of 4 mm each of the ascending aorta and completed the 2 proximal anastomosis of the vein graft and the radial artery using Prolene 6-0 and Prolene 7-0 in continuous manner. De-airing maneuvers were followed. With the patient in Trendelenburg position and the aortic fluid on maximal, we unclamped the aorta. Flow was reestablished in the mammary artery. The patient regained soon after his spontaneous sinus rhythm. I had to add 1 additional suture to the side of the anastomosis of the vein to the posterior descending artery. FloSeal was placed over the distal anastomosis. Satisfied with the anastomosis and after a period of reperfusion, we were able to wean off cardioplegia bypass without the need of any inotropic or vasopressor support. MARISELA showed good left ventricular function and right ventricular function. No significant mitral valve regurgitation. With that test dose and full dose protamine was given. Decannulation followed. Two monopolar atrial pacing wires were affixed to the respective pursing of the right atrium. No ventricular pacing wire was placed. Two nineteen-Afghan Prieto drains were left substernally. After ensuring adequate hemostasis and hemodynamic and after performing graft flow measurements that showed a flow of 70 mL/minute, and diastolic filling of 62% with a pulsatility index of 2.5 in the vein graft to the posterior descending artery, and flow of 56 mL/minute, pulsatility index 1.8 and diastolic filling of 70% in the radial artery to the obtuse marginal artery and good parameters for the left internal mammary artery to the left anterior descending artery, we went ahead and approximated some of the fat over the heart and the grafts. The sternum was closed using 5 [id number] pineal cable after interposing fibular between the sternal edges. Thorough irrigation with cefazolin followed. The rest of the closure proceeded in layers. Skin glue was applied. The patient did not receive any blood bank product but received 430 mL of Cell Saver blood. He was transferred to the ICU with a PA pressure of 31/13, mean artery pressure of 69, heart rate of 64, sinus, and a cardiac index of 2.6 on low-dose nitroglycerin. MMODL / IJN: [id number] /
[2019-08-29 23:12] LABS: Glucose,Whole Blood 172 mg/dL (75-99)
[2019-08-30 00:11] LABS: Glucose,Whole Blood 176 mg/dL (75-99)
[2019-08-30] MEDS: IPRATROPIUM-ALBUTEROL 3 ML NEB INHALATION SCH ×5 (00:11→19:21)
[2019-08-30] MEDS: HEPARIN SODIUM,PORCINE 5,000 UNIT/ML 1 ML VIAL SQ SCH ×3 (00:12→15:58)
[2019-08-30 00:58] LABS: Glucose,Whole Blood 157 mg/dL (75-99)
[2019-08-30 01:56] LABS: Glucose,Whole Blood 149 mg/dL (75-99)
[2019-08-30 03:18] LABS: Glucose,Whole Blood 136 mg/dL (75-99)
[2019-08-30 04:12] LABS: Glucose,Whole Blood 120 mg/dL (75-99)
[2019-08-30] MEDS: PHENYLEPHRINE 40 MG in SODIUM CHLORIDE 0.9% 250 ML IV SCH (04:34)
[2019-08-30 05:02] LABS: Basophils # (A) 0.1 k/uL (0-0.2); Basophils % (A) 1 %; Eosinophils % (A) 0 %; HCT 25.6 % (39.0-53.0); HGB 8.6 gm/dL (13.0-17.5); Lymphocytes # (A) 0.9 k/uL (1.0-4.8); Lymphocytes % (A) 10 %; MCH 31.2 pg (25.0-35.0); MCHC 33.8 g/dL (31.0-37.0); MCV 92.4 fL (80.0-100.0); Mean Platelet Volume 11.7; Monocytes # (A) 0.6 k/uL (0-1.0); Monocytes % (A) 6 %; Neutrophils # (A) 7.8 k/uL (1.3-7.7); Neutrophils % (A) 81 %; Platelet Count 135 k/uL (150-450); RBC 2.77 m/uL (4.30-5.90); WBC 9.6 k/uL (3.8-10.6)
[2019-08-30 05:10] LABS: Ionized Calcium 4.5 mg/dL (4.5-5.3)
[2019-08-30 05:18] LABS: ALT 16 U/L (4-49); AST 82 U/L (17-59); African American GFR (CKD) >90 (>60 ml/min/1.73 sqM); Albumin 2.8 g/dL (3.5-5.0); Alkaline Phosphatase 30 U/L (38-126); Anion Gap 5 mmol/L; Blood Urea Nitrogen 16 mg/dL (9-20); Calcium 7.2 mg/dL (8.4-10.2); Carbon Dioxide 25 mmol/L (22-30); Chloride 107 mmol/L (98-107); Glucose 113 mg/dL (74-99); Magnesium 2.3 mg/dL (1.6-2.3); Non-African American GFR(CKD) >90 (>60 ml/min/1.73 sqM); Potassium 4.4 mmol/L (3.5-5.1); Sodium 137 mmol/L (137-145); Total Bilirubin 0.3 mg/dL (0.2-1.3); Total Protein 4.7 g/dL (6.3-8.2)
[2019-08-30 05:34] LABS: Glucose,Whole Blood 129 mg/dL (75-99)
[2019-08-30] MEDS: KETOROLAC 30 MG/ML 1 ML VIAL IVP SCH ×3 (05:47→17:43)
[2019-08-30 06:23] LABS: Glucose,Whole Blood 141 mg/dL (75-99)
[2019-08-30 06:56] LABS: Glucose,Whole Blood 141 mg/dL (75-99)
--- NOTE | 2019-08-30 07:52 | P.PN ---
Subjective Progress Note Date: 08/30/19 Principal diagnosis: Triple vessel coronary artery disease with totally occluded collateralized right coronary artery, overall preserved left ventricular function, mild aortic sten osis. Previous medical history of hypertension, hyperlipidemia, old myocardial infarction with prior stenting to the circumflex artery in 2010, type 2 diabetes mellitus with preoperative hemoglobin A1c 8.9%, current tobacco dependence, mild COPD with preoperative FEV1 63% of predicted, obesity, umbilical and epigastric hernia, and family history of premature coronary artery disease. POD #1 triple coronary artery bypass grafting using the left internal mammary artery to the left anterior descending artery, left radial artery from the aorta to the obtuse marginal artery, reverse saphenous vein graft from the aorta to the posterior descending artery. Endoscopic harvesting of the left radial artery. Endoscopic harvesting of the left greater saphenous vein from the groin to the mid lower leg level. Intraoperative transesophageal echocardiogram and epi-aortic scanning. Intraoperative graft flow measurements using the [employer] system. Postoperative acute blood loss anemia, expected secondary to hemodilution and cardiopulmonary bypass pump. The patient is currently sitting up in a recliner in no acute distress in the intensive care unit. He was successfully extubated last night at 21:15. Does complain of surgical type of chest pain, denies shortness of breath. Attempting to use incentive spirometry. Mediastinal and left pleural chest tubes, right internal jugular Mckenzie/Cordis present. Remains in normal sinus rhythm, hemodynamically stable on no inotropes or pressors. No new concerns. Objective - Vital Signs Vital signs: Vital Signs Temp 37.2 F L 08/30/19 04:00 Pulse 104 H 08/30/19 07:25 Resp 16 08/30/19 07:00 BP 144/78 08/29/19 07:00 Pulse Ox 94 L 08/30/19 07:00 Intake & Output 08/29/19 08/30/19 08/30/19 18:59 06:59 18:59 Intake Total 045.963 3783.909 51.5 Output Total 3210 1291 45 Balance -3080.394 76.909 6.5 Weight 94 kg Intake: IV 33 266.5 1.5 CO/CI 250 Nitroglycerine 16.5 1.5 Intake, IV Titration 96.606 1101.409 50 Amount ACETAMINOPHEN IV (For NPO 100 ) 1,000 mg In Empty Bag 1 bag @ 400 mls/hr IVPB Q6HR [facility] Rx#:[id number] Albumin Human 5% 250 ml 250 In Empty Bag 1 bag @ 250 mls/hr IVPB Q1HR PRN Rx#: [id number] Clevidipine Butyrate 25 1.167 mg In Empty Bag 1 bag @ 1 MG/HR 2 mls/hr IV .Q24H [facility] Rx#:[id number] Insulin Regular 100 unit 1 45.162 In Sodium Chloride 0.9% 100 ml @ Per Protocol IV .Q0M [facility] Rx#:[id number] Nitroglycerin-D5w Pmx 50 3.0 1.5 mg In Dextrose/Water 1 250ml.bag @ 5 MCG/MIN 1.5 mls/hr IV .Q24H [facility] Rx#: [id number] Phenylephrine 40 mg In 0 0 Sodium Chloride 0.9% 250 ml @ 0.5 MCG/KG/MIN 17. 907 mls/hr IV .[id number] [facility] Rx#:[id number] Propofol 1,000 mg In 42.606 53.580 Empty Bag 1 bag @ Titrate IV .Q0M [facility] Rx#: [id number] Sodium Chloride 0.9% 1, 50 600 50 000 ml @ 50 mls/hr IV . Q20H [facility] Rx#:[id number] ceFAZolin 2 gm In Sodium 50 Chloride 0.9% 50 ml @ 100 mls/hr IVPB Q8HR [facility] Rx# :[id number] Output: Chest Tube Drainage 480 301 0 Chest Tube Mediastinal [address] pleural 385 115 0 Drainage 95 Left Arm 35 Left Lower Leg 60 Urine 730 895 45 Estimated Blood Loss 1999 Other: Voiding Method Indwelling Catheter Indwelling Catheter ABP, PAP, CO, CI - Last Documented Arterial Blood Pressure 115/44 Pulmonary Artery Pressure 20/10 Cardiac Output 7.6 Cardiac Index 3.8 - Constitutional General appearance: Present: cooperative, no acute distress, obese - Respiratory Details: Lungs sounds diminished bilaterally. Respirations even, nonlabored. Currently on 4 L nasal cannula with oxygen saturation 94%. Able to achieve 750 mL on his incentive spirometry. Weak cough. Mediastinal chest tube present continuous wall suction, 90 mL thin serosanguineous drainage overnight, 300 mL since surgery. Left pleural chest tubes present continuous wall suction, 65 mL of thin serosanguineous drainage overnight, 500 mL since surgery. No air leaks present. - Cardiovascular Details: S1, S2 present, positive rub. Regular rate and rhythm, sinus rhythm on telemetry. Sternum stable. Atrial epicardial pacemaker wires present, connected to generator, generator turned off. Palpable peripheral pulses bilaterally. No edema present. No calf pain or tenderness noted. Right internal jugular Mckenzie/Cordis, right radial arterial line present. Last CO/CI 7.6/3.8 on no inotropes or pressors. Heart hugger in place with patient demonstrating appropriate use. Antiembolism stockings present. - Gastrointestinal Gastrointestinal Comment(s): Abdomen soft, nontender, nondistended, obese. Hypoactive bowel sounds present 4 quadrants. Tolerating ice chips. Denies flatus, nausea. - Genitourinary Genitourinary Comment(s): Acosta present draining clear, yellow urine. Output 40-80 mL/h overnight. - Integumentary Integumentary Comment(s): Skin is warm and dry with evidence of good perfusion. Anterior chest incision well approximated and covered with dry intact dressing. Left radial artery harvest site well approximated, GLENDA drain present with 35 mL serosanguineous drainage overnight. Patient able to wiggle all fingers and paper folder appropriately, skin is pink with good cap refill, patient denies numbness or tingling to his left hand. Left lower extremity EVH site well approximated, GLENDA drain present with 60 mL serosanguineous drainage overnight. - Neurologic Neurologic: Present: CNII-XII intact - Musculoskeletal Musculoskeletal: Present: strength equal bilaterally - Psychiatric Psychiatric: Present: A&O x's 3, appropriate affect, intact judgment & insight - Allied health notes Allied health notes reviewed: nursing - Labs CBC & Chem 7: 08/30/19 04:40 08/30/19 04:40 Labs: Abnormal Lab Results - Last 24 Hours (Table) 08/23/19 08/29/19 08/29/19 Range/Units 08:35 16:16 16:16 WBC 14.1 H (3.8-10.6) k/uL RBC 3.30 L (4.30-5.90) m/uL Hgb 10.3 L D (13.0-17.5) gm/dL Hct 31.0 L (39.0-53.0) % Plt Count 148 L (150-450) k/uL Neutrophils # 11.2 H (1.3-7.7) k/uL Lymphocytes # (1.0-4.8) k/uL Basophils # 0.3 H (0-0.2) k/uL ABG pH (7.35-7.45) ABG pCO2 (35-45) mmHg ABG pO2 (83-108) mmHg ABG HCO3 (21-25) mmol/L ABG Total CO2 (19-24) mmol/L ABG O2 Saturation (94-97) % Chloride 108 H (98-107) mmol/L Glucose (74-99) mg/dL POC Glucose (mg/dL) (75-99) mg/dL Calcium 7.0 L (8.4-10.2) mg/dL Magnesium 2.9 H (1.6-2.3) mg/dL AST (17-59) U/L Alkaline Phosphatase 27 L (38-126) U/L Total Protein 4.8 L (6.3-8.2) g/dL Albumin 2.9 L (3.5-5.0) g/dL Crossmatch See Detail 08/29/19 08/29/19 08/29/19 Range/Units 16:46 17:03 17:32 WBC (3.8-10.6) k/uL RBC (4.30-5.90) m/uL Hgb (13.0-17.5) gm/dL Hct (39.0-53.0) % Plt Count (150-450) k/uL Neutrophils # (1.3-7.7) k/uL Lymphocytes # (1.0-4.8) k/uL Basophils # (0-0.2) k/uL ABG pH 7.20 L (7.35-7.45) ABG pCO2 72 H* (35-45) mmHg ABG pO2 132 H (83-108) mmHg ABG HCO3 28 H (21-25) mmol/L ABG Total CO2 30 H (19-24) mmol/L ABG O2 Saturation 97.8 H (94-97) % Chloride (98-107) mmol/L Glucose (74-99) mg/dL POC Glucose (mg/dL) 100 H 139 H (75-99) mg/dL Calcium (8.4-10.2) mg/dL Magnesium (1.6-2.3) mg/dL AST (17-59) U/L Alkaline Phosphatase (38-126) U/L Total Protein (6.3-8.2) g/dL Albumin (3.5-5.0) g/dL Crossmatch 08/29/19 08/29/19 08/29/19 Range/Units 18:35 19:26 19:29 WBC (3.8-10.6) k/uL RBC (4.30-5.90) m/uL Hgb (13.0-17.5) gm/dL Hct (39.0-53.0) % Plt Count (150-450) k/uL Neutrophils # (1.3-7.7) k/uL Lymphocytes # (1.0-4.8) k/uL Basophils # (0-0.2) k/uL ABG pH 7.32 L (7.35-7.45) ABG pCO2 49 H (35-45) mmHg ABG pO2 115 H (83-108) mmHg ABG HCO3 (21-25) mmol/L ABG Total CO2 27 H (19-24) mmol/L ABG O2 Saturation 97.2 H (94-97) % Chloride (98-107) mmol/L Glucose (74-99) mg/dL POC Glucose (mg/dL) 128 H 124 H (75-99) mg/dL Calcium (8.4-10.2) mg/dL Magnesium (1.6-2.3) mg/dL AST (17-59) U/L Alkaline Phosphatase (38-126) U/L Total Protein (6.3-8.2) g/dL Albumin (3.5-5.0) g/dL Crossmatch 08/29/19 08/29/19 08/29/19 Range/Units 19:30 20:36 20:59 WBC 12.1 H (3.8-10.6) k/uL RBC 3.13 L (4.30-5.90) m/uL Hgb 9.7 L (13.0-17.5) gm/dL Hct 29.3 L (39.0-53.0) % Plt Count 141 L (150-450) k/uL Neutrophils # 10.7 H (1.3-7.7) k/uL Lymphocytes # 0.5 L (1.0-4.8) k/uL Basophils # (0-0.2) k/uL ABG pH (7.35-7.45) ABG pCO2 (35-45) mmHg ABG pO2 (83-108) mmHg ABG HCO3 (21-25) mmol/L ABG Total CO2 25 H (19-24) mmol/L ABG O2 Saturation (94-97) % Chloride (98-107) mmol/L Glucose (74-99) mg/dL POC Glucose (mg/dL) 188 H (75-99) mg/dL Calcium (8.4-10.2) mg/dL Magnesium (1.6-2.3) mg/dL AST (17-59) U/L Alkaline Phosphatase (38-126) U/L Total Protein (6.3-8.2) g/dL Albumin (3.5-5.0) g/dL Crossmatch 08/29/19 08/29/19 08/29/19 Range/Units 21:40 22:25 22:31 WBC 11.2 H (3.8-10.6) k/uL RBC 3.11 L (4.30-5.90) m/uL Hgb 9.6 L (13.0-17.5) gm/dL Hct 29.2 L (39.0-53.0) % Plt Count 142 L (150-450) k/uL Neutrophils # 9.9 H (1.3-7.7) k/uL Lymphocytes # 0.6 L (1.0-4.8) k/uL Basophils # (0-0.2) k/uL ABG pH (7.35-7.45) ABG pCO2 (35-45) mmHg ABG pO2 (83-108) mmHg ABG HCO3 (21-25) mmol/L ABG Total CO2 (19-24) mmol/L ABG O2 Saturation (94-97) % Chloride (98-107) mmol/L Glucose (74-99) mg/dL POC Glucose (mg/dL) 201 H 198 H (75-99) mg/dL Calcium (8.4-10.2) mg/dL Magnesium (1.6-2.3) mg/dL AST (17-59) U/L Alkaline Phosphatase (38-126) U/L Total Protein (6.3-8.2) g/dL Albumin (3.5-5.0) g/dL Crossmatch 08/29/19 08/30/19 08/30/19 Range/Units 23:11 00:09 00:56 WBC (3.8-10.6) k/uL RBC (4.30-5.90) m/uL Hgb (13.0-17.5) gm/dL Hct (39.0-53.0) % Plt Count (150-450) k/uL Neutrophils # (1.3-7.7) k/uL Lymphocytes # (1.0-4.8) k/uL Basophils # (0-0.2) k/uL ABG pH (7.35-7.45) ABG pCO2 (35-45) mmHg ABG pO2 (83-108) mmHg ABG HCO3 (21-25) mmol/L ABG Total CO2 (19-24) mmol/L ABG O2 Saturation (94-97) % Chloride (98-107) mmol/L Glucose (74-99) mg/dL POC Glucose (mg/dL) 172 H 176 H 157 H (75-99) mg/dL Calcium (8.4-10.2) mg/dL Magnesium (1.6-2.3) mg/dL AST (17-59) U/L Alkaline Phosphatase (38-126) U/L Total Protein (6.3-8.2) g/dL Albumin (3.5-5.0) g/dL Crossmatch 08/30/19 08/30/19 08/30/19 Range/Units 01:54 03:16 04:11 WBC (3.8-10.6) k/uL RBC (4.30-5.90) m/uL Hgb (13.0-17.5) gm/dL Hct (39.0-53.0) % Plt Count (150-450) k/uL Neutrophils # (1.3-7.7) k/uL Lymphocytes # (1.0-4.8) k/uL Basophils # (0-0.2) k/uL ABG pH (7.35-7.45) ABG pCO2 (35-45) mmHg ABG pO2 (83-108) mmHg ABG HCO3 (21-25) mmol/L ABG Total CO2 (19-24) mmol/L ABG O2 Saturation (94-97) % Chloride (98-107) mmol/L Glucose (74-99) mg/dL POC Glucose (mg/dL) 149 H 136 H 120 H (75-99) mg/dL Calcium (8.4-10.2) mg/dL Magnesium (1.6-2.3) mg/dL AST (17-59) U/L Alkaline Phosphatase (38-126) U/L Total Protein (6.3-8.2) g/dL Albumin (3.5-5.0) g/dL Crossmatch 08/30/19 08/30/19 08/30/19 Range/Units 04:40 04:40 05:33 WBC (3.8-10.6) k/uL RBC 2.77 L (4.30-5.90) m/uL Hgb 8.6 L (13.0-17.5) gm/dL Hct 25.6 L (39.0-53.0) % Plt Count 135 L (150-450) k/uL Neutrophils # 7.8 H (1.3-7.7) k/uL Lymphocytes # 0.9 L (1.0-4.8) k/uL Basophils # (0-0.2) k/uL ABG pH (7.35-7.45) ABG pCO2 (35-45) mmHg ABG pO2 (83-108) mmHg ABG HCO3 (21-25) mmol/L ABG Total CO2 (19-24) mmol/L ABG O2 Saturation (94-97) % Chloride (98-107) mmol/L Glucose 113 H (74-99) mg/dL POC Glucose (mg/dL) 129 H (75-99) mg/dL Calcium 7.2 L (8.4-10.2) mg/dL Magnesium (1.6-2.3) mg/dL AST 82 H (17-59) U/L Alkaline Phosphatase 30 L (38-126) U/L Total Protein 4.7 L (6.3-8.2) g/dL Albumin 2.8 L (3.5-5.0) g/dL Crossmatch 02/06/20 02/06/20 Range/Units 06:19 06:55 WBC (3.8-10.6) k/uL RBC (4.30-5.90) m/uL Hgb (13.0-17.5) gm/dL Hct (39.0-53.0) % Plt Count (150-450) k/uL Neutrophils # (1.3-7.7) k/uL Lymphocytes # (1.0-4.8) k/uL Basophils # (0-0.2) k/uL ABG pH (7.35-7.45) ABG pCO2 (35-45) mmHg ABG pO2 (83-108) mmHg ABG HCO3 (21-25) mmol/L ABG Total CO2 (19-24) mmol/L ABG O2 Saturation (94-97) % Chloride (98-107) mmol/L Glucose (74-99) mg/dL POC Glucose (mg/dL) 141 H 141 H (75-99) mg/dL Calcium (8.4-10.2) mg/dL Magnesium (1.6-2.3) mg/dL AST (17-59) U/L Alkaline Phosphatase (38-126) U/L Total Protein (6.3-8.2) g/dL Albumin (3.5-5.0) g/dL Crossmatch - Imaging and Cardiology Chest x-ray: image reviewed Assessment and Plan Assessment: 1. Triple-vessel coronary artery disease with totally occluded collateralized right coronary artery, status post three-vessel CABG 2. Overall preserved left ventricular function 3. Mild aortic stenosis 4. History of hypertension 5. Hyperlipidemia 6. Old myocardial infarction with prior stenting to the circumflex artery in 2010 7. Type 2 diabetes with preoperative hemoglobin A1c 8.9% 8. Current tobacco dependence 9. Mild COPD with preoperative FEV1 63% of predicted 10. Obesity 11. Umbilical and epigastric hernia 12. Family history of premature coronary artery disease 13. Postoperative acute blood loss anemia Plan: 1. Continue aspirin, statin, Plavix, beta kevin therapy. Will increase beta kevin therapy as tolerated. Will add JOSE JUAN/ARB for afterload reduction when able 2. Will discontinue IV nitro, transition to oral Cardizem for radial artery spasm prophylaxis 3. Wean O2 as tolerated. Encourage incentive spirometry use 10 times every hour while awake. Bronchodilators per pulmonology. 4. Increase activity, ambulate as tolerated. PT/OT/cardiac rehab following 5. Will monitor daily labs and x-rays. Electro replacement per protocol. No transfusion 6. Pain control with current medication regimen 7. Insulin/diabetic management per primary care service 8. Discontinue Mckenzie. Connect Cordis to continuous CVP monitoring 9. Continue chest tubes for another 24 hours 10. Continue Acosta catheter for another 24 hours for strict accurate intake and output 11. More recommendations to follow based on patient's progress Time with Patient: Greater than 30
[2019-08-30] MEDS: ATORVASTATIN 40 MG TAB PO SCH (08:05)
[2019-08-30] MEDS: HYDROcodone/APAP 5-325MG 1 EACH TAB PO PRN ×3 (08:05→21:21)
[2019-08-30] MEDS: CLOPIDOGREL 75 MG TAB PO SCH (08:05)
[2019-08-30] MEDS: ASPIRIN 325 MG TAB PO SCH (08:05)
--- NOTE | 2019-08-30 08:16 | XR ---
EXAMINATION TYPE: XR chest 1V portable DATE OF EXAM: 08/30/2019 COMPARISON: Prior chest x-ray 08/29/2019 HISTORY: Postop cardiac surgery TECHNIQUE: Single frontal view of the chest is obtained. FINDINGS: There is been interval removal of endotracheal tube and NG tube, right jugular central lisa ous catheter again noted, distal tip over the pulmonary artery. Patient is rotated. There is a left-s ided chest tube. There are overlying cardiac leads. Interstitium is increased. Lung volumes are low. Perihilar increased attenuation is again noted. No evident pneumothorax. Median sternal drain is in p lace. IMPRESSION: Interval extubation. Rotated expiratory exam. There may be a component of interstitial e jenaro or findings could be technical.
[2019-08-30 08:24] LABS: Glucose,Whole Blood 140 mg/dL (75-99)
[2019-08-30] MEDS ORDERED: METOPROLOL TARTRATE 12.5 MG TAB PO ONE (09:00)
[2019-08-30] MEDS ORDERED: PANTOPRAZOLE 40 MG/10 ML VIAL IVP SCH (09:00)
[2019-08-30] MEDS ORDERED: BISACODYL 10 MG SUPP RECTAL PRN (09:00)
[2019-08-30] MEDS ORDERED: MAGNESIUM HYDROXIDE 2,400 MG/10 ML CUP PO PRN (09:00)
[2019-08-30] MEDS ORDERED: METOPROLOL TARTRATE 12.5 MG TAB PO SCH (09:00)
[2019-08-30] MEDS ORDERED: METOPROLOL TARTRATE 25 MG TAB PO SCH ×2 (09:00→21:00)
[2019-08-30 09:21] LABS: Glucose,Whole Blood 139 mg/dL (75-99)
[2019-08-30 09:59] VITALS: BMI 35.5
[2019-08-30 10:11] LABS: Glucose,Whole Blood 145 mg/dL (75-99)
--- NOTE | 2019-08-30 10:35 | CONS ---
CONSULTATION CHIEF COMPLAINT: Coronary artery disease. Pb is a 63-year-old gentleman with history of coronary artery disease, hypertension, dyslipidemia, prior stenting of circumflex coronary artery, type 2 diabetes who is admitted to hospital electively for bypass surgery. He underwent bypass with AARON to LAD, radial artery graft to OM and venous graft to PDA. Today is postop day #2. He is extubated, remains in sinus rhythm and is hemodynamically stable. He is currently other than discomfort at the surgical incision sites, he is doing fairly well. PAST MEDICAL HISTORY: Significant for coronary artery disease, [id number] diabetes, hypertension and dyslipidemia. CURRENT MEDICATIONS: Current medications include aspirin, Cozaar, Lopressor, Crestor, spironolactone, metformin, and Januvia. ALLERGIES: Allergies to PENICILLIN. FAMILY HISTORY: Negative for premature coronary artery disease. SOCIAL HISTORY: Negative for smoking, EtOH abuse or drug abuse. REVIEW OF SYSTEMS: HEENT is unremarkable. CARDIAC: As described above. RESPIRATORY: Negative. GI: Negative. GENITOURINARY: Negative. ALLERGY/IMMUNOLOGY: Negative. SKIN: Negative. MUSCULOSKELETAL: Significant for pain. PSYCHOSOCIAL: Negative. ENDOCRINE: Negative. HEMATOLOGICAL: Negative. DERM: Negative. CONSTITUTIONAL: Negative. ONCOLOGICAL: Negative. PHYSICAL EXAMINATION: On exam, heart rate is 89 beats per minute. Blood pressure is 159/50. Respiratory rate is 18. There is no jugular venous distention. Carotid upstroke is normal. There is no bruit. Chest exam reveals diminished air entry at the bases. Heart exam reveals first and second heart sounds. No gallop. Has a systolic murmur at the left lower sternal border. Abdomen is soft. Exam of extremities did not reveal any edema. Peripheral pulses are felt. LABS: Labs show that the hemoglobin is 8.6, potassium is 4.4, creatinine is 0.8. AST is elevated, ALT is 16. ASSESSMENT: Three-vessel coronary artery disease, status post CABG. The patient will continue with aspirin, Plavix, Lipitor, Cardizem. I advised the patient on incentive spirometry. MMODL / IJN: [id number] /
[2019-08-30] MEDS: DILTIAZEM ORAL 30 MG TAB PO SCH ×3 (11:40→23:59)
[2019-08-30 11:41] LABS: Glucose,Whole Blood 148 mg/dL (75-99)
[2019-08-30 12:16] LABS: Glucose,Whole Blood 155 mg/dL (75-99)
--- NOTE | 2019-08-30 13:32 | P.CONS ---
History of Present Illness - Reason for Consult Consult date: 08/30/19 medical management - History of Present Illness This is a 63-year-old male patient of Dr. Reyes with past medical history of diabetes mellitus type 2, hypertension, hyperlipidemia, history of VT in 2011 status post stent of the circumflex. Patient found to have triple- vessel coronary artery disease with totally occluded collateralized right coronary artery, overall preserved left ventricular function, mild aortic stenosis, mild COPD with preoperative FEV1 63% of predicted, obesity, umbilical and epigastric hernia. Patient was brought into the hospital under the care of Dr. Luna status post triple coronary artery bypass grafting using the left internal mammary artery to the left anterior descending artery, left radial artery from the aorta to the obtuse marginal artery, reverse saphenous vein graft from the aorta to the posterior descending artery, postoperative day #1. Patient was successfully extubated last evening. Patient states that he walked in the hallway to the nurse's desk and back. He is complaining of feeling tired fatigue and sore in general. He has a little pain with deep breathing. He is using incentive spirometry at 800 mL. school lunch monitor is a normal sinus rhythm. Patient is currently on insulin drip and blood sugars are running between 139 148. Patient is known to have some subcutaneous emphysema in the upper chest area. Chest tubes, Acosta catheter, pacer wires in place. Review of Systems Constitutional: Reports fatigue, Reports weakness, Denies anorexia, Denies chills, Denies fever, Denies lethargy, Denies malaise Eyes: denies blurred vision, denies pain Ears, nose, mouth and throat: Denies dysphagia, Denies headache, Denies nasal congestion, Denies nasal discharge, Denies sore throat, Denies vertigo Cardiovascular: Denies chest pain, Denies decreased exercise tolerance, Denies dyspnea on exertion, Denies lightheadedness, Denies shortness of breath, Denies syncope Respiratory: Denies cough, Denies cough with sputum, Denies excessive sputum, Denies hemoptysis, Denies home oxygen, Denies respiratory infections Gastrointestinal: Denies abdominal pain, Denies diarrhea, Denies loss of appetite, Denies nausea, Denies vomiting Genitourinary: Denies dysuria, Denies urinary frequency, Denies urinary retention Musculoskeletal: Denies frequent falls, Denies gait dysfunction, Denies muscle weakness, Denies myalgias Integumentary: Denies pruritus, Denies rash Neurological: Denies change in mentation, Denies change in speech, Denies numbness, Denies seizures, Denies weakness Psychiatric: Denies anxiety, Denies depression Endocrine: Denies fatigue, Denies weight change Past Medical History Past Medical History: Diabetes Mellitus, Hyperlipidemia, Hypertension, Myocardial Infarction (VT) Additional Past Medical History / Comment(s): current umbilical hernia Last Myocardial Infarction Date:: 2010 History of Any Multi-Drug Resistant Organisms: None Reported Past Surgical History: Heart Catheterization, Heart Catheterization With Stent Additional Past Surgical History / Comment(s): recent cardiac cath Past Anesthesia/Blood Transfusion Reactions: No Reported Reaction Additional Past Anesthesia/Blood Transfusion Reaction / Comm: no surgical hx Date of Last Stent Placement:: 2010 Smoking Status: Former smoker Additional Past Alcohol Use History / Comment(s): The patient smokes cigars off and on since age 17. No alcohol or illicit drug use. - Past Family History Mother Family Medical History: No Reported History Additional Family Medical History / Comment(s): Mother at age 72 from diabetes complications. No history of coronary artery disease. Father Family Medical History: Coronary Artery Disease (CAD), Myocardial Infarction (VT) Additional Family Medical History / Comment(s): father at age 62 from myocardial infarction with history of coronary artery disease. Brother(s) Family Medical History: Coronary Artery Disease (CAD) Additional Family Medical History / Comment(s): Patient has 2 brothers one from myocardial infarction. One brother had myocardial infarction status post 3 vessel CABG. Sister(s) Additional Family Medical History / Comment(s): Patient has 2 sisters and one has diabetes. Patient has 3 daughters and 2 sons with no major medical problems. Medications and Allergies Home Medications Medication Instructions Recorded Confirmed Type Losartan [Cozaar] 50 mg PO DAILY 08/10/19 08/29/19 History Metoprolol Tartrate [Lopressor] 50 mg PO BID 08/10/19 08/29/19 History Rosuvastatin Calcium 40 mg PO DAILY 08/10/19 08/29/19 History Spironolactone 25 mg PO DAILY 08/10/19 08/29/19 History metFORMIN HCL [metFORMIN HCL ER] 1,500 mg PO W/SUPPER 08/10/19 08/29/19 History sitaGLIPtin [Januvia] 100 mg PO DAILY 08/10/19 08/29/19 History Aspirin 325 mg PO DAILY 08/23/19 08/29/19 History Allergies Allergy/AdvReac Type Severity Reaction Status Date / Time Penicillins Allergy Rash/Hives Verified 08/29/19 07:07 Physical Exam Vitals: Vital Signs Temp Pulse Resp Pulse Ox 08/30/19 11:10 97 08/30/19 11:00 92 19 98 08/30/19 10:59 92 08/30/19 10:00 81 16 96 08/30/19 09:00 89 17 96 08/30/19 08:00 99.3 F 105 H 27 H 92 L 08/30/19 07:37 105 H 08/30/19 07:25 104 H 08/30/19 07:00 103 H 16 94 L 08/30/19 06:00 96 14 95 08/30/19 05:00 101 H 17 94 L 08/30/19 04:00 37.2 F L 104 H 17 95 08/30/19 03:30 96 19 94 L 08/30/19 03:00 88 16 96 08/30/19 02:30 96 16 96 08/30/19 02:00 103 H 18 95 08/30/19 01:30 107 H 19 96 08/30/19 01:00 98 17 95 08/30/19 00:30 109 H 19 97 08/30/19 00:00 37.2 F L 108 H 18 97 08/29/19 23:30 101 H 15 96 08/29/19 23:18 116 H 18 96 08/29/19 23:15 99.3 F 109 H 19 96 08/29/19 23:00 112 H 21 97 08/29/19 22:45 114 H 22 95 08/29/19 22:30 120 H 23 96 08/29/19 22:15 115 H 21 95 08/29/19 22:00 117 H 22 95 08/29/19 21:45 120 H 38 H 95 08/29/19 21:30 118 H 23 92 L 08/29/19 21:15 120 H 26 H 96 08/29/19 21:00 117 H 28 H 94 L 08/29/19 20:45 123 H 31 H 97 08/29/19 20:30 125 H 31 H 96 08/29/19 20:15 105 H 26 H 97 08/29/19 20:00 99.1 F 107 H 24 99 08/29/19 19:51 106 H 08/29/19 19:45 106 H 11 L 98 08/29/19 19:30 106 H 6 L 97 08/29/19 19:15 111 H 21 100 08/29/19 19:00 99.1 F 103 H 25 H 97 08/29/19 18:45 101 H 23 97 08/29/19 18:30 97 20 100 08/29/19 18:15 94 20 100 08/29/19 18:00 98.8 F 92 20 99 08/29/19 17:45 90 20 99 08/29/19 17:30 89 20 99 08/29/19 17:15 89 20 100 08/29/19 17:00 98.1 F 86 12 100 08/29/19 16:50 84 12 100 08/29/19 16:40 97.9 F 83 12 100 Intake and Output 08/29/19 08/30/19 08/30/19 22:59 06:59 14:59 Intake Total 867.754 596.761 522.862 Output Total 1179 762 195 Balance -311.246 -165.239 327.862 Intake: IV 154.5 112.0 1.5 CO/CI 150 100 Nitroglycerine 4.5 12.0 1.5 Intake, IV Titration 713.254 484.761 281.362 Amount ACETAMINOPHEN IV (For NPO 100 ) 1,000 mg In Empty Bag 1 bag @ 400 mls/hr IVPB Q6HR [facility] Rx#:[id number] Albumin Human 5% 250 ml 250 In Empty Bag 1 bag @ 250 mls/hr IVPB Q1HR PRN Rx#: [id number] Clevidipine Butyrate 25 1.167 mg In Empty Bag 1 bag @ 1 MG/HR 2 mls/hr IV .Q24H [facility] Rx#:[id number] Insulin Regular 100 unit 11.401 34.761 21.362 In Sodium Chloride 0.9% 100 ml @ Per Protocol IV .Q0M [facility] Rx#:[id number] Nitroglycerin-D5w Pmx 50 4.5 mg In Dextrose/Water 1 250ml.bag @ 5 MCG/MIN 1.5 mls/hr IV .Q24H [facility] Rx#: [id number] Phenylephrine 40 mg In 0 Sodium Chloride 0.9% 250 ml @ 0.5 MCG/KG/MIN 17. 907 mls/hr IV .[id number] [facility] Rx#:[id number] Propofol 1,000 mg In 96.186 Empty Bag 1 bag @ Titrate IV .Q0M [facility] Rx#: [id number] Sodium Chloride 0.9% 1, 250 400 210 000 ml @ 20 mls/hr IV . Q24H [facility] Rx#:[id number] ceFAZolin 2 gm In Sodium 50 50 Chloride 0.9% 50 ml @ 100 mls/hr IVPB Q8HR [facility] Rx# :[id number] Oral 240 Output: Chest Tube Drainage 624 157 40 Chest Tube Mediastinal [address] pleural 435 65 40 Drainage 95 Left Arm 35 Left Lower Leg 60 Urine 555 510 155 Other: Voiding Method Indwelling Catheter Indwelling Catheter Indwelling Catheter Weight 94 kg ABP, PAP, CO, CI - Last 8 Hours Arterial Blood Pressure 116/51 Arterial Blood Pressure 120/51 Arterial Blood Pressure 114/49 Arterial Blood Pressure 124/48 Arterial Blood Pressure 115/44 Arterial Blood Pressure 118/49 Arterial Blood Pressure 133/50 Arterial Blood Pressure 122/50 Pulmonary Artery Pressure 22/11 Pulmonary Artery Pressure 20/10 Pulmonary Artery Pressure 22/8 Pulmonary Artery Pressure 25/11 Pulmonary Artery Pressure 25/10 Cardiac Output 7.6 Cardiac Output 7.6 Cardiac Output 7.6 Cardiac Index 3.8 Cardiac Index 3.8 Cardiac Index 3.8 Gen: This is a 63-year-old male. He is sitting up in bed and appears to be comfortable and in no acute distress. Family members at bedside. HEENT: Head is atraumatic, normocephalic. Pupils equal, round. Sclerae is anicteric. Cortisone place to the right internal jugular. NECK: Supple. No JVD. No lymphadenopathy. No thyromegaly. LUNGS: Diminished bilaterally but otherwise clear to auscultation. No wheezes or rhonchi. No intercostal retractions. Chest tubes in place to wall suction. HEART: Regular rate and rhythm. No murmur. Dressing in place to midsternum with no significant drainage or bleeding. Subcutaneous emphysema noted to the upper chest. ABDOMEN: Soft. Bowel sounds are present. No masses. No tenderness. Acosta catheter draining clear lois urine. EXTREMITIES: No pedal edema. No calf tenderness. Left radial artery harvest site with GLENDA drain. Left lower extremity harvest site with GLENDA drain. NEUROLOGICAL: Patient is awake, alert and oriented x3. Cranial nerves 2 through 12 are grossly intact. Results CBC & Chem 7: 08/30/19 04:40 08/30/19 04:40 Labs: Abnormal Lab Results - Last 24 Hours (Table) 08/23/19 08/29/19 08/29/19 Range/Units 08:35 16:16 16:16 WBC 14.1 H (3.8-10.6) k/uL RBC 3.30 L (4.30-5.90) m/uL Hgb 10.3 L D (13.0-17.5) gm/dL Hct 31.0 L (39.0-53.0) % Plt Count 148 L (150-450) k/uL Neutrophils # 11.2 H (1.3-7.7) k/uL Lymphocytes # (1.0-4.8) k/uL Basophils # 0.3 H (0-0.2) k/uL ABG pH (7.35-7.45) ABG pCO2 (35-45) mmHg ABG pO2 (83-108) mmHg ABG HCO3 (21-25) mmol/L ABG Total CO2 (19-24) mmol/L ABG O2 Saturation (94-97) % Chloride 108 H (98-107) mmol/L Glucose (74-99) mg/dL POC Glucose (mg/dL) (75-99) mg/dL Calcium 7.0 L (8.4-10.2) mg/dL Magnesium 2.9 H (1.6-2.3) mg/dL AST (17-59) U/L Alkaline Phosphatase 27 L (38-126) U/L Total Protein 4.8 L (6.3-8.2) g/dL Albumin 2.9 L (3.5-5.0) g/dL Crossmatch See Detail 08/29/19 08/29/19 08/29/19 Range/Units 16:46 17:03 17:32 WBC (3.8-10.6) k/uL RBC (4.30-5.90) m/uL Hgb (13.0-17.5) gm/dL Hct (39.0-53.0) % Plt Count (150-450) k/uL Neutrophils # (1.3-7.7) k/uL Lymphocytes # (1.0-4.8) k/uL Basophils # (0-0.2) k/uL ABG pH 7.20 L (7.35-7.45) ABG pCO2 72 H* (35-45) mmHg ABG pO2 132 H (83-108) mmHg ABG HCO3 28 H (21-25) mmol/L ABG Total CO2 30 H (19-24) mmol/L ABG O2 Saturation 97.8 H (94-97) % Chloride (98-107) mmol/L Glucose (74-99) mg/dL POC Glucose (mg/dL) 100 H 139 H (75-99) mg/dL Calcium (8.4-10.2) mg/dL Magnesium (1.6-2.3) mg/dL AST (17-59) U/L Alkaline Phosphatase (38-126) U/L Total Protein (6.3-8.2) g/dL Albumin (3.5-5.0) g/dL Crossmatch 08/29/19 08/29/19 08/29/19 Range/Units 18:35 19:26 19:29 WBC (3.8-10.6) k/uL RBC (4.30-5.90) m/uL Hgb (13.0-17.5) gm/dL Hct (39.0-53.0) % Plt Count (150-450) k/uL Neutrophils # (1.3-7.7) k/uL Lymphocytes # (1.0-4.8) k/uL Basophils # (0-0.2) k/uL ABG pH 7.32 L (7.35-7.45) ABG pCO2 49 H (35-45) mmHg ABG pO2 115 H (83-108) mmHg ABG HCO3 (21-25) mmol/L ABG Total CO2 27 H (19-24) mmol/L ABG O2 Saturation 97.2 H (94-97) % Chloride (98-107) mmol/L Glucose (74-99) mg/dL POC Glucose (mg/dL) 128 H 124 H (75-99) mg/dL Calcium (8.4-10.2) mg/dL Magnesium (1.6-2.3) mg/dL AST (17-59) U/L Alkaline Phosphatase (38-126) U/L Total Protein (6.3-8.2) g/dL Albumin (3.5-5.0) g/dL Crossmatch 08/29/19 08/29/19 08/29/19 Range/Units 19:30 20:36 20:59 WBC 12.1 H (3.8-10.6) k/uL RBC 3.13 L (4.30-5.90) m/uL Hgb 9.7 L (13.0-17.5) gm/dL Hct 29.3 L (39.0-53.0) % Plt Count 141 L (150-450) k/uL Neutrophils # 10.7 H (1.3-7.7) k/uL Lymphocytes # 0.5 L (1.0-4.8) k/uL Basophils # (0-0.2) k/uL ABG pH (7.35-7.45) ABG pCO2 (35-45) mmHg ABG pO2 (83-108) mmHg ABG HCO3 (21-25) mmol/L ABG Total CO2 25 H (19-24) mmol/L ABG O2 Saturation (94-97) % Chloride (98-107) mmol/L Glucose (74-99) mg/dL POC Glucose (mg/dL) 188 H (75-99) mg/dL Calcium (8.4-10.2) mg/dL Magnesium (1.6-2.3) mg/dL AST (17-59) U/L Alkaline Phosphatase (38-126) U/L Total Protein (6.3-8.2) g/dL Albumin (3.5-5.0) g/dL Crossmatch 08/29/19 08/29/19 08/29/19 Range/Units 21:40 22:25 22:31 WBC 11.2 H (3.8-10.6) k/uL RBC 3.11 L (4.30-5.90) m/uL Hgb 9.6 L (13.0-17.5) gm/dL Hct 29.2 L (39.0-53.0) % Plt Count 142 L (150-450) k/uL Neutrophils # 9.9 H (1.3-7.7) k/uL Lymphocytes # 0.6 L (1.0-4.8) k/uL Basophils # (0-0.2) k/uL ABG pH (7.35-7.45) ABG pCO2 (35-45) mmHg ABG pO2 (83-108) mmHg ABG HCO3 (21-25) mmol/L ABG Total CO2 (19-24) mmol/L ABG O2 Saturation (94-97) % Chloride (98-107) mmol/L Glucose (74-99) mg/dL POC Glucose (mg/dL) 201 H 198 H (75-99) mg/dL Calcium (8.4-10.2) mg/dL Magnesium (1.6-2.3) mg/dL AST (17-59) U/L Alkaline Phosphatase (38-126) U/L Total Protein (6.3-8.2) g/dL Albumin (3.5-5.0) g/dL Crossmatch 08/29/19 08/30/19 08/30/19 Range/Units 23:11 00:09 00:56 WBC (3.8-10.6) k/uL RBC (4.30-5.90) m/uL Hgb (13.0-17.5) gm/dL Hct (39.0-53.0) % Plt Count (150-450) k/uL Neutrophils # (1.3-7.7) k/uL Lymphocytes # (1.0-4.8) k/uL Basophils # (0-0.2) k/uL ABG pH (7.35-7.45) ABG pCO2 (35-45) mmHg ABG pO2 (83-108) mmHg ABG HCO3 (21-25) mmol/L ABG Total CO2 (19-24) mmol/L ABG O2 Saturation (94-97) % Chloride (98-107) mmol/L Glucose (74-99) mg/dL POC Glucose (mg/dL) 172 H 176 H 157 H (75-99) mg/dL Calcium (8.4-10.2) mg/dL Magnesium (1.6-2.3) mg/dL AST (17-59) U/L Alkaline Phosphatase (38-126) U/L Total Protein (6.3-8.2) g/dL Albumin (3.5-5.0) g/dL Crossmatch 08/30/19 08/30/19 08/30/19 Range/Units 01:54 03:16 04:11 WBC (3.8-10.6) k/uL RBC (4.30-5.90) m/uL Hgb (13.0-17.5) gm/dL Hct (39.0-53.0) % Plt Count (150-450) k/uL Neutrophils # (1.3-7.7) k/uL Lymphocytes # (1.0-4.8) k/uL Basophils # (0-0.2) k/uL ABG pH (7.35-7.45) ABG pCO2 (35-45) mmHg ABG pO2 (83-108) mmHg ABG HCO3 (21-25) mmol/L ABG Total CO2 (19-24) mmol/L ABG O2 Saturation (94-97) % Chloride (98-107) mmol/L Glucose (74-99) mg/dL POC Glucose (mg/dL) 149 H 136 H 120 H (75-99) mg/dL Calcium (8.4-10.2) mg/dL Magnesium (1.6-2.3) mg/dL AST (17-59) U/L Alkaline Phosphatase (38-126) U/L Total Protein (6.3-8.2) g/dL Albumin (3.5-5.0) g/dL Crossmatch 08/30/19 08/30/19 08/30/19 Range/Units 04:40 04:40 05:33 WBC (3.8-10.6) k/uL RBC 2.77 L (4.30-5.90) m/uL Hgb 8.6 L (13.0-17.5) gm/dL Hct 25.6 L (39.0-53.0) % Plt Count 135 L (150-450) k/uL Neutrophils # 7.8 H (1.3-7.7) k/uL Lymphocytes # 0.9 L (1.0-4.8) k/uL Basophils # (0-0.2) k/uL ABG pH (7.35-7.45) ABG pCO2 (35-45) mmHg ABG pO2 (83-108) mmHg ABG HCO3 (21-25) mmol/L ABG Total CO2 (19-24) mmol/L ABG O2 Saturation (94-97) % Chloride (98-107) mmol/L Glucose 113 H (74-99) mg/dL POC Glucose (mg/dL) 129 H (75-99) mg/dL Calcium 7.2 L (8.4-10.2) mg/dL Magnesium (1.6-2.3) mg/dL AST 82 H (17-59) U/L Alkaline Phosphatase 30 L (38-126) U/L Total Protein 4.7 L (6.3-8.2) g/dL Albumin 2.8 L (3.5-5.0) g/dL Crossmatch 08/30/19 08/30/19 08/30/19 Range/Units 06:19 06:55 08:15 WBC (3.8-10.6) k/uL RBC (4.30-5.90) m/uL Hgb (13.0-17.5) gm/dL Hct (39.0-53.0) % Plt Count (150-450) k/uL Neutrophils # (1.3-7.7) k/uL Lymphocytes # (1.0-4.8) k/uL Basophils # (0-0.2) k/uL ABG pH (7.35-7.45) ABG pCO2 (35-45) mmHg ABG pO2 (83-108) mmHg ABG HCO3 (21-25) mmol/L ABG Total CO2 (19-24) mmol/L ABG O2 Saturation (94-97) % Chloride (98-107) mmol/L Glucose (74-99) mg/dL POC Glucose (mg/dL) 141 H 141 H 140 H (75-99) mg/dL Calcium (8.4-10.2) mg/dL Magnesium (1.6-2.3) mg/dL AST (17-59) U/L Alkaline Phosphatase (38-126) U/L Total Protein (6.3-8.2) g/dL Albumin (3.5-5.0) g/dL Crossmatch 08/30/19 08/30/1908/30/20 Range/Units 09:20 10:09 11:22 WBC (3.8-10.6) k/uL RBC (4.30-5.90) m/uL Hgb (13.0-17.5) gm/dL Hct (39.0-53.0) % Plt Count (150-450) k/uL Neutrophils # (1.3-7.7) k/uL Lymphocytes # (1.0-4.8) k/uL Basophils # (0-0.2) k/uL ABG pH (7.35-7.45) ABG pCO2 (35-45) mmHg ABG pO2 (83-108) mmHg ABG HCO3 (21-25) mmol/L ABG Total CO2 (19-24) mmol/L ABG O2 Saturation (94-97) % Chloride (98-107) mmol/L Glucose (74-99) mg/dL POC Glucose (mg/dL) 139 H 145 H 148 H (75-99) mg/dL Calcium (8.4-10.2) mg/dL Magnesium (1.6-2.3) mg/dL AST (17-59) U/L Alkaline Phosphatase (38-126) U/L Total Protein (6.3-8.2) g/dL Albumin (3.5-5.0) g/dL Crossmatch Assessment and Plan Plan: 1. Triple-vessel coronary artery disease status post coronary artery bypass grafting, postoperative day #1. Continue current pain management, increase activity, incentive spirometry to reduce incidence of atelectasis and hospital-acquired pneumonia. Continue aspirin, Lipitor, Plavix, Lopressor, Cardizem, heparin subcu. 2. Diabetes mellitus type 2. Patient is currently on insulin drip. Continue to monitor closely with plan to transition to scheduled Levemir and short-acting insulin. 3. Hypertension. Continue Lopressor. 4. Hyperlipidemia. Continue statin. 5. History of coronary artery disease with previous stenting of the circumflex.. 6. Mild COPD, stable without exacerbation. 7. GI prophylaxis. Protonix. 8. DVT prophylaxis. Heparin subcu. Discharge plan: To be determined Impression and plan of care have been directed as dictated by the signing physician. Rosalia Burns nurse practitioner acting as scribe for signing physician.
[2019-08-30 14:02] LABS: Glucose,Whole Blood 137 mg/dL (75-99)
--- NOTE | 2019-08-30 14:35 | P.CNPUL ---
History of Present Illness Consult date: 08/30/19 Requesting physician: Celestine Luna Reason for consult: other (Status post CABG) Chief complaint: Status post CABG History of present illness: This is a 63-year-old white male with history of multiple medical problems including hypertension, type 2 diabetes, previous VT in 2010, and previous michael nting of the circumflex. Patient was recently discovered to have triple-vessel coronary artery disease with preserved LV function. Mild aortic stenosis. He has baseline FEV1 of 63%. And he has history of a large umbilical hernia. Patient was seen by thoracic surgery on consultation, and yesterday he underwent coronary artery bypass grafting using the left internal mammary artery to the left anterior descending artery, left radial artery from the aorta to the obtuse marginal artery, reverse saphenous vein graft from the aorta to the posterior descending artery, postoperatively, patient was on mechanical ventilation, and I was asked to see him on consultation. I reviewed his chest x-ray, I reviewed his labs, and his ventilator settings were adjusted according to the ABG. 3 hours later the patient was placed on CPAP, and I was notified about his CPAP ABG, recommended extubating the patient over the phone. Patient did extremely well, tolerated the extubation well, and I'm seeing him today off mechanical ventilation, patient is doing extremely well. Denies any cough no wheezing no shortness of breath, feels mostly generally weak. Review of Systems Constitutional: Denies fever chills fatigue malaise or weight loss. Eyes: Denies diplopia or blurred vision. Ears, nose, mouth and throat: Denies earache or sore throat. Cardiovascular: Denies chest pain or orthopnea or PND. Respiratory: Denies cough wheezing or shortness of breath. Gastrointestinal: Denies nausea vomiting abdominal pain Genitourinary: Denied dysuria frequency urgency hematuria. Musculoskeletal: Denies arthralgia or myalgia Integumentary: Denies pruritus or skin rashes. Neurological: Denies headache or blurred vision or dizziness. Or syncope. Psychiatric: Denies symptoms of active depression Endocrine: Denies heat or cold intolerance. Past Medical History Past Medical History: Diabetes Mellitus, Hyperlipidemia, Hypertension, Myocardial Infarction (VT) Additional Past Medical History / Comment(s): current umbilical hernia Last Myocardial Infarction Date:: 2010 History of Any Multi-Drug Resistant Organisms: None Reported Past Surgical History: Heart Catheterization, Heart Catheterization With Stent Additional Past Surgical History / Comment(s): recent cardiac cath Past Anesthesia/Blood Transfusion Reactions: No Reported Reaction Additional Past Anesthesia/Blood Transfusion Reaction / Comment(s): no surgical hx Date of Last Stent Placement:: 2010 Smoking Status: Former smoker Additional Past Alcohol Use History / Comment(s): The patient smokes cigars off and on since age 17. No alcohol or illicit drug use. - Past Family History Mother Family Medical History: No Reported History Additional Family Medical History / Comment(s): Mother at age 72 from diabetes complications. No history of coronary artery disease. Father Family Medical History: Coronary Artery Disease (CAD), Myocardial Infarction (VT) Additional Family Medical History / Comment(s): father at age 62 from myocardial infarction with history of coronary artery disease. Brother(s) Family Medical History: Coronary Artery Disease (CAD) Additional Family Medical History / Comment(s): Patient has 2 brothers one from myocardial infarction. One brother had myocardial infarction status post 3 vessel CABG. Sister(s) Additional Family Medical History / Comment(s): Patient has 2 sisters and one has diabetes. Patient has 3 daughters and 2 sons with no major medical problems. Medications and Allergies Home Medications Medication Instructions Recorded Confirmed Type Losartan [Cozaar] 50 mg PO DAILY 08/10/19 08/29/19 History Metoprolol Tartrate [Lopressor] 50 mg PO BID 08/10/19 08/29/19 History Rosuvastatin Calcium 40 mg PO DAILY 08/10/19 08/29/19 History Spironolactone 25 mg PO DAILY 08/10/19 08/29/19 History metFORMIN HCL [metFORMIN HCL ER] 1,500 mg PO W/SUPPER 08/10/19 08/29/19 History sitaGLIPtin [Januvia] 100 mg PO DAILY 08/10/19 08/29/19 History Aspirin 325 mg PO DAILY 08/23/19 08/29/19 History Allergies Allergy/AdvReac Type Severity Reaction Status Date / Time Penicillins Allergy Rash/Hives Verified 08/29/19 07:07 Physical Exam Vitals: Vital Signs Temp Pulse Resp Pulse Ox 08/30/19 12:00 98.2 F 87 17 95 08/30/19 11:10 97 08/30/19 11:00 92 19 98 08/30/19 10:59 92 08/30/19 10:00 81 16 96 08/30/19 09:00 89 17 96 08/30/19 08:00 99.3 F 105 H 27 H 92 L 08/30/19 07:37 105 H 08/30/19 07:25 104 H 08/30/19 07:00 103 H 16 94 L 08/30/19 06:00 96 14 95 08/30/19 05:00 101 H 17 94 L 08/30/19 04:00 37.2 F L 104 H 17 95 08/30/19 03:30 96 19 94 L 08/30/19 03:00 88 16 96 08/30/19 02:30 96 16 96 08/30/19 02:00 103 H 18 95 08/30/19 01:30 107 H 19 96 08/30/19 01:00 98 17 95 08/30/19 00:30 109 H 19 97 08/30/19 00:00 37.2 F L 108 H 18 97 08/29/19 23:30 101 H 15 96 08/29/19 23:18 116 H 18 96 08/29/19 23:15 99.3 F 109 H 19 96 08/29/19 23:00 112 H 21 97 08/29/19 22:45 114 H 22 95 08/29/19 22:30 120 H 23 96 08/29/19 22:15 115 H 21 95 08/29/19 22:00 117 H 22 95 08/29/19 21:45 120 H 38 H 95 08/29/19 21:30 118 H 23 92 L 08/29/19 21:15 120 H 26 H 96 08/29/19 21:00 117 H 28 H 94 L 08/29/19 20:45 123 H 31 H 97 08/29/19 20:30 125 H 31 H 96 08/29/19 20:15 105 H 26 H 97 08/29/19 20:00 99.1 F 107 H 24 99 08/29/19 19:51 106 H 08/29/19 19:45 106 H 11 L 98 08/29/19 19:30 106 H 6 L 97 08/29/19 19:15 111 H 21 100 08/29/19 19:00 99.1 F 103 H 25 H 97 08/29/19 18:45 101 H 23 97 08/29/19 18:30 97 20 100 08/29/19 18:15 94 20 100 08/29/19 18:00 98.8 F 92 20 99 08/29/19 17:45 90 20 99 08/29/19 17:30 89 20 99 08/29/19 17:15 89 20 100 08/29/19 17:00 98.1 F 86 12 100 08/29/19 16:50 84 12 100 08/29/19 16:40 97.9 F 83 12 100 Intake and Output 08/29/19 08/30/19 08/30/19 22:59 06:59 14:59 Intake Total 867.754 596.761 685.892 Output Total 1179 762 285 Balance -311.246 -165.239 400.892 Intake: IV 154.5 112.0 1.5 CO/CI 150 100 Nitroglycerine 4.5 12.0 1.5 Intake, IV Titration 713.254 484.761 324.392 Amount ACETAMINOPHEN IV (For NPO 100 ) 1,000 mg In Empty Bag 1 bag @ 400 mls/hr IVPB Q6HR [facility] Rx#:[id number] Albumin Human 5% 250 ml 250 In Empty Bag 1 bag @ 250 mls/hr IVPB Q1HR [facility] Rx#: [id number] Clevidipine Butyrate 25 1.167 mg In Empty Bag 1 bag @ 1 MG/HR 2 mls/hr IV .Q24H [facility] Rx#:[id number] Insulin Regular 100 unit 11.401 34.761 24.392 In Sodium Chloride 0.9% 100 ml @ Per Protocol IV .Q0M [facility] Rx#:[id number] Nitroglycerin-D5w Pmx 50 4.5 mg In Dextrose/Water 1 250ml.bag @ 5 MCG/MIN 1.5 mls/hr IV .Q24H [facility] Rx#: [id number] Phenylephrine 40 mg In 0 Sodium Chloride 0.9% 250 ml @ 0.5 MCG/KG/MIN 17. 907 mls/hr IV .[id number] [facility] Rx#:[id number] Propofol 1,000 mg In 96.186 Empty Bag 1 bag @ Titrate IV .Q0M [facility] Rx#: [id number] Sodium Chloride 0.9% 1, 250 400 250 000 ml @ 20 mls/hr IV . Q24H [facility] Rx#:[id number] ceFAZolin 2 gm In Sodium 50 50 Chloride 0.9% 50 ml @ 100 mls/hr IVPB Q8HR [facility] Rx# :[id number] Oral 360 Output: Chest Tube Drainage 624 157 100 Chest Tube Mediastinal [address] pleural 435 65 80 Drainage 95 Left Arm 35 Left Lower Leg 60 Urine 555 510 185 Other: Voiding Method Indwelling Catheter Indwelling Catheter Indwelling Catheter Weight 94 kg ABP, PAP, CO, CI - Last 8 Hours Arterial Blood Pressure 125/49 Arterial Blood Pressure 116/51 Arterial Blood Pressure 120/51 Arterial Blood Pressure 114/49 Arterial Blood Pressure 124/48 Arterial Blood Pressure 115/44 Pulmonary Artery Pressure 22/11 Pulmonary Artery Pressure 20/10 Cardiac Output 7.6 Cardiac Output 7.6 Cardiac Index 3.8 Cardiac Index 3.8 Physical Exam: Revealed a 63-year-old white male in no distress. Head: Atraumatic, normocephalic. HEENT:[Neck is supple.] [No neck masses.] [No thyromegaly.] [No JVD.] PERRLA, EOMI, no icterus. Moist mucous membranes. Chest: [Diminished breath sounds at the bases no crackles or rhonchi or wheezes. Chest tubes noted to wall suction. Cardiac Exam: [Normal S1 and S2, no S3 gallop, 2/6 systolic murmur thought the precordium. Positive pericardial rub. Abdomen: [Soft, nontender, no megaly, no rebound, no guarding, normal bowel sounds.] Large umbilical hernia is noted. Extremities: [No clubbing, no edema, no cyanosis.] Good pulses bilaterally. Neurological Exam: [No focal neurologic deficit. Alert and oriented 3. Psychiatric: Normal mood, affect and normal mental status examination. Skin: No rashes.] Results - Laboratory Findings CBC and BMP: 08/30/19 04:40 08/30/19 04:40 ABG ABG pH 7.36 (7.35-7.45) 08/29/19 20:59 ABG pCO2 42 mmHg (35-45) 08/29/19 20:59 ABG pO2 87 mmHg (83-108) 08/29/19 20:59 ABG O2 Saturation 96.7 % (94-97) 08/29/19 20:59 PT/INR, D-dimer PT 11.2 sec (9.0-12.0) 08/29/19 16:16 INR 1.1 (<1.2) 08/29/19 16:16 Abnormal lab findings: Abnormal Labs 08/23/19 08/29/19 08/29/19 08:35 07:20 16:16 WBC 14.1 H RBC 3.30 L Hgb 10.3 L D Hct 31.0 L Plt Count 148 L Neutrophils # 11.2 H Lymphocytes # Basophils # 0.3 H ABG pH ABG pCO2 ABG pO2 ABG HCO3 ABG Total CO2 ABG O2 Saturation Chloride Glucose POC Glucose (mg/dL) 184 H Calcium Magnesium AST Alkaline Phosphatase Total Protein Albumin Crossmatch See Detail 08/29/19 08/29/19 08/29/19 16:16 16:46 17:03 WBC RBC Hgb Hct Plt Count Neutrophils # Lymphocytes # Basophils # ABG pH 7.20 L ABG pCO2 72 H* ABG pO2 132 H ABG HCO3 28 H ABG Total CO2 30 H ABG O2 Saturation 97.8 H Chloride 108 H Glucose POC Glucose (mg/dL) 100 H Calcium 7.0 L Magnesium 2.9 H AST Alkaline Phosphatase 27 L Total Protein 4.8 L Albumin 2.9 L Crossmatch 08/29/19 08/29/19 08/29/19 17:32 18:35 19:26 WBC RBC Hgb Hct Plt Count Neutrophils # Lymphocytes # Basophils # ABG pH 7.32 L ABG pCO2 49 H ABG pO2 115 H ABG HCO3 ABG Total CO2 27 H ABG O2 Saturation 97.2 H Chloride Glucose POC Glucose (mg/dL) 139 H 128 H Calcium Magnesium AST Alkaline Phosphatase Total Protein Albumin Crossmatch 08/29/19 08/29/19 08/29/19 19:29 19:30 20:36 WBC 12.1 H RBC 3.13 L Hgb 9.7 L Hct 29.3 L Plt Count 141 L Neutrophils # 10.7 H Lymphocytes # 0.5 L Basophils # ABG pH ABG pCO2 ABG pO2 ABG HCO3 ABG Total CO2 ABG O2 Saturation Chloride Glucose POC Glucose (mg/dL) 124 H 188 H Calcium Magnesium AST Alkaline Phosphatase Total Protein Albumin Crossmatch 08/29/19 08/29/19 08/29/19 20:59 21:40 22:25 WBC 11.2 H RBC 3.11 L Hgb 9.6 L Hct 29.2 L Plt Count 142 L Neutrophils # 9.9 H Lymphocytes # 0.6 L Basophils # ABG pH ABG pCO2 ABG pO2 ABG HCO3 ABG Total CO2 25 H ABG O2 Saturation Chloride Glucose POC Glucose (mg/dL) 201 H Calcium Magnesium AST Alkaline Phosphatase Total Protein Albumin Crossmatch 08/29/19 08/29/19 08/30/19 22:31 23:11 00:09 WBC RBC Hgb Hct Plt Count Neutrophils # Lymphocytes # Basophils # ABG pH ABG pCO2 ABG pO2 ABG HCO3 ABG Total CO2 ABG O2 Saturation Chloride Glucose POC Glucose (mg/dL) 198 H 172 H 176 H Calcium Magnesium AST Alkaline Phosphatase Total Protein Albumin Crossmatch 08/30/19 08/30/19 08/30/19 00:56 01:54 03:16 WBC RBC Hgb Hct Plt Count Neutrophils # Lymphocytes # Basophils # ABG pH ABG pCO2 ABG pO2 ABG HCO3 ABG Total CO2 ABG O2 Saturation Chloride Glucose POC Glucose (mg/dL) 157 H 149 H 136 H Calcium Magnesium AST Alkaline Phosphatase Total Protein Albumin Crossmatch 08/30/19 08/30/19 08/30/19 04:11 04:40 04:40 WBC RBC 2.77 L Hgb 8.6 L Hct 25.6 L Plt Count 135 L Neutrophils # 7.8 H Lymphocytes # 0.9 L Basophils # ABG pH ABG pCO2 ABG pO2 ABG HCO3 ABG Total CO2 ABG O2 Saturation Chloride Glucose 113 H POC Glucose (mg/dL) 120 H Calcium 7.2 L Magnesium AST 82 H Alkaline Phosphatase 30 L Total Protein 4.7 L Albumin 2.8 L Crossmatch 08/30/19 08/30/19 08/30/19 05:33 06:19 06:55 WBC RBC Hgb Hct Plt Count Neutrophils # Lymphocytes # Basophils # ABG pH ABG pCO2 ABG pO2 ABG HCO3 ABG Total CO2 ABG O2 Saturation Chloride Glucose POC Glucose (mg/dL) 129 H 141 H 141 H Calcium Magnesium AST Alkaline Phosphatase Total Protein Albumin Crossmatch 08/30/19 08/30/19 08/30/19 08:15 09:20 10:09 WBC RBC Hgb Hct Plt Count Neutrophils # Lymphocytes # Basophils # ABG pH ABG pCO2 ABG pO2 ABG HCO3 ABG Total CO2 ABG O2 Saturation Chloride Glucose POC Glucose (mg/dL) 140 H 139 H 145 H Calcium Magnesium AST Alkaline Phosphatase Total Protein Albumin Crossmatch 08/30/19 08/30/19 08/30/19 11:22 11:57 14:01 WBC RBC Hgb Hct Plt Count Neutrophils # Lymphocytes # Basophils # ABG pH ABG pCO2 ABG pO2 ABG HCO3 ABG Total CO2 ABG O2 Saturation Chloride Glucose POC Glucose (mg/dL) 148 H 155 H 137 H Calcium Magnesium AST Alkaline Phosphatase Total Protein Albumin Crossmatch - Diagnostic Findings Chest x-ray: image reviewed (Chest x-ray shows mild prominence of the interstitium.) Assessment and Plan Assessment: Impression: Status post triple-vessel CABG, postoperative day #1. History of mild COPD, asymptomatic. Inactive. Type 2 diabetes without complications. Hypertension. Dyslipidemia. Umbilical hernia. Recommendation: Continue to monitor in the ICU for now. Continue beta blockers Plavix statin aspirin Wean oxygen as tolerated. Incentive spirometry. Continue bronchodilators. Early ambulation. Monitor daily chest x-rays. Pain control. Insulin for diabetes management. Discontinue on the same lines and catheters We'll continue to follow while in the ICU. Time with Patient: Greater than 30
[2019-08-30 15:14] LABS: Glucose,Whole Blood 137 mg/dL (75-99)
[2019-08-30] MEDS: INSULIN REGULAR 100 UNIT in SODIUM CHLORIDE 0.9% 100 ML IV SCH (15:59)
[2019-08-30] MEDS: SODIUM CHLORIDE 0.9% 1,000 ML IV SCH (17:17)
[2019-08-30 17:41] LABS: Glucose,Whole Blood 173 mg/dL (75-99)
[2019-08-30] MEDS: SENNOSIDES-DOCUSATE SODIUM 1 EACH TAB PO SCH (21:18)
[2019-08-31 00:10] LABS: Glucose,Whole Blood 119 mg/dL (75-99)
[2019-08-31] MEDS: HEPARIN SODIUM,PORCINE 5,000 UNIT/ML 1 ML VIAL SQ SCH ×3 (00:14→15:45)
[2019-08-31] MEDS: KETOROLAC 30 MG/ML 1 ML VIAL IVP SCH ×4 (00:14→17:54)
[2019-08-31 02:50] LABS: Glucose,Whole Blood 112 mg/dL (75-99)
[2019-08-31 04:15] LABS: Glucose,Whole Blood 184 mg/dL (75-99)
[2019-08-31] MEDS: HYDROcodone/APAP 5-325MG 1 EACH TAB PO PRN ×5 (04:33→21:01)
[2019-08-31 05:04] LABS: Basophils % (A) 0 %; Eosinophils # (A) 0.1 k/uL (0-0.7); Eosinophils % (A) 1 %; HCT 23.4 % (39.0-53.0); HGB 7.7 gm/dL (13.0-17.5); Lymphocytes # (A) 1.4 k/uL (1.0-4.8); Lymphocytes % (A) 15 %; MCH 30.9 pg (25.0-35.0); MCHC 32.8 g/dL (31.0-37.0); MCV 94.2 fL (80.0-100.0); Mean Platelet Volume 11.5; Monocytes # (A) 0.5 k/uL (0-1.0); Monocytes % (A) 6 %; Neutrophils % (A) 76 %; Platelet Count 119 k/uL (150-450); RBC 2.48 m/uL (4.30-5.90); RDW 14.4 % (11.5-15.5); WBC 9.2 k/uL (3.8-10.6)
[2019-08-31 05:15] LABS: Ionized Calcium 4.5 mg/dL (4.5-5.3)
[2019-08-31 05:25] LABS: ALT 13 U/L (4-49); AST 54 U/L (17-59); African American GFR (CKD) >90 (>60 ml/min/1.73 sqM); Albumin 2.8 g/dL (3.5-5.0); Alkaline Phosphatase 44 U/L (38-126); Anion Gap 7 mmol/L; Blood Urea Nitrogen 20 mg/dL (9-20); Calcium 7.3 mg/dL (8.4-10.2); Carbon Dioxide 23 mmol/L (22-30); Chloride 105 mmol/L (98-107); Glucose 173 mg/dL (74-99); Non-African American GFR(CKD) 88 (>60 ml/min/1.73 sqM); Potassium 4.2 mmol/L (3.5-5.1); Sodium 135 mmol/L (137-145); Total Bilirubin 0.6 mg/dL (0.2-1.3); Total Protein 4.9 g/dL (6.3-8.2)
[2019-08-31] MEDS: DILTIAZEM ORAL 30 MG TAB PO SCH ×3 (05:33→17:54)
[2019-08-31 05:57] LABS: Glucose,Whole Blood 189 mg/dL (75-99)
[2019-08-31] MEDS: IPRATROPIUM-ALBUTEROL 3 ML NEB INHALATION SCH ×4 (07:16→20:57)
--- NOTE | 2019-08-31 08:15 | XR ---
EXAMINATION TYPE: XR chest 1V portable DATE OF EXAM: 08/31/2019 COMPARISON: 08/30/2019 HISTORY: Postop TECHNIQUE: Single frontal view of the chest is obtained. FINDINGS: [place] catheter has been removed. Left-sided chest tube and mediastinal drain present w ith postsurgical changes. By basilar consolidation small effusion. Mild interstitial pattern. Arthrop athy of the shoulders. No pneumothorax. IMPRESSION: 1. No sizable pneumothorax. Small bilateral effusion and postoperative basilar atelectasis suspected correlate for mild central venous congestion.
[2019-08-31] MEDS ORDERED: FUROSEMIDE 10 MG/ML 4 ML VIAL IV STA (08:41)
[2019-08-31] MEDS: ASPIRIN 325 MG TAB PO SCH (08:58)
[2019-08-31] MEDS: CLOPIDOGREL 75 MG TAB PO SCH (08:58)
[2019-08-31] MEDS: METOPROLOL TARTRATE 50 MG TAB PO SCH ×2 (08:58→21:01)
[2019-08-31] MEDS: FERROUS SULFATE 325 MG TAB PO SCH ×2 (08:59→17:20)
[2019-08-31] MEDS: ATORVASTATIN 40 MG TAB PO SCH (08:59)
[2019-08-31] MEDS: PANTOPRAZOLE 40 MG TABLET PO SCH (08:59)
[2019-08-31] MEDS: ASCORBIC ACID 500 MG TAB PO SCH ×2 (08:59→17:20)
--- NOTE | 2019-08-31 09:04 | P.PN ---
Subjective Progress Note Date: 08/31/19 Principal diagnosis: Triple vessel coronary artery disease with totally occluded collateralized right coronary artery, overall preserved left ventricular function, mild aortic sten osis. Previous medical history of hypertension, hyperlipidemia, old myocardial infarction with prior stenting to the circumflex artery in 2010, type 2 diabetes mellitus with preoperative hemoglobin A1c 8.9%, current tobacco dependence, mild COPD with preoperative FEV1 63% of predicted, obesity, umbilical and epigastric hernia, and family history of premature coronary artery disease. POD #2 triple coronary artery bypass grafting using the left internal mammary artery to the left anterior descending artery, left radial artery from the aorta to the obtuse marginal artery, reverse saphenous vein graft from the aorta to the posterior descending artery. Endoscopic harvesting of the left radial artery. Endoscopic harvesting of the left greater saphenous vein from the groin to the mid lower leg level. Intraoperative transesophageal echocardiogram and epi-aortic scanning. Intraoperative graft flow measurements using the [employer] system. Postoperative acute blood loss anemia, expected secondary to hemodilution and cardiopulmonary bypass pump. The patient is currently sitting up in a recliner in no acute distress in the intensive care unit. Does complain of surgical type of chest pain, denies shortness of breath. Attempting to use incentive spirometry. Mediastinal and left pleural chest tubes, right internal jugular Cordis present. Remains in normal sinus rhythm, hemodynamically stable on no inotropes or pressors. Patient to ambulate in the hallway twice yesterday. No new concerns. Objective - Vital Signs Vital signs: Vital Signs Temp 98.2 F 08/31/19 04:00 Pulse 97 08/31/19 07:28 Resp 17 08/31/19 07:00 BP 144/78 08/29/19 07:00 Pulse Ox 94 L 08/31/19 07:00 Intake & Output 08/30/19 08/31/19 08/31/19 18:59 06:59 18:59 Intake Total 1214.846 450.065 Output Total 575 685 Balance 639.846 -234.935 Weight 94 kg Intake: IV 1.5 360 Nitroglycerine 1.5 Sodium Chloride 0.9% 1, 360 000 ml @ 20 mls/hr IV . Q24H [facility] Rx#:[id number] Intake, IV Titration 643.346 90.065 Amount Insulin Regular 100 unit 53.346 50.065 In Sodium Chloride 0.9% 100 ml @ Per Protocol IV .Q0M [facility] Rx#:[id number] Sodium Chloride 0.9% 1, 490 40 000 ml @ 20 mls/hr IV . Q24H [facility] Rx#:[id number] ceFAZolin 2 gm In Sodium 100 Chloride 0.9% 50 ml @ 100 mls/hr IVPB Q8HR [facility] Rx# :[id number] Oral 570 Output: Chest Tube Drainage 200 310 Chest Tube Mediastinal [address] lt pleural 160 240 Urine 375 375 Other: Voiding Method Indwelling Catheter Indwelling Catheter ABP, PAP, CO, CI - Last Documented Arterial Blood Pressure 116/46 Pulmonary Artery Pressure 22/11 Cardiac Output 7.6 Cardiac Index 3.8 - Constitutional General appearance: Present: cooperative, no acute distress, obese - Respiratory Details: Lungs sounds diminished bilaterally. Respirations even, nonlabored. Currently on 4 L nasal cannula with oxygen saturation 95%. Able to achieve 750 mL on his incentive spirometry. Weak cough. Mediastinal chest tube present continuous wall suction, 40 mL thin serosanguineous drainage overnight, 100 mL in the last 24 hours. Left pleural chest tubes present continuous wall suction, 180 mL of thin serosanguineous drainage overnight, 500 mL in the last 24 hours. No air leaks present. - Cardiovascular Details: S1, S2 present, positive rub. Regular rate and rhythm, sinus rhythm on telemetry. Sternum stable. Atrial epicardial pacemaker wires present, juan unded. Palpable peripheral pulses bilaterally. No edema present. No calf pain or tenderness noted. Right internal jugular Cordis, right radial arterial line present. Heart hugger in place with patient demonstrating appropriate use. Antiembolism stockings present. - Gastrointestinal Gastrointestinal Comment(s): Abdomen soft, nontender, nondistended, obese. Active bowel sounds present 4 quadrants. Tolerating diet. Positive flatus. - Genitourinary Genitourinary Comment(s): Acosta present draining clear, yellow urine. Output 30-40 mL/h overnight. - Integumentary Integumentary Comment(s): Skin is warm and dry with evidence of good perfusion. Anterior chest incision well approximated and covered with dry intact dressing. Left radial artery harvest site well approximated. Patient able to wiggle all fingers and pneumatic tube repairer appropriately, skin is pink with good cap refill, patient denies numbness or tingling to his left hand. Left lower extremity EVH site well approximated. - Neurologic Neurologic: Present: CNII-XII intact - Musculoskeletal Musculoskeletal: Present: gait normal, generalized weakness, strength equal bilaterally - Psychiatric Psychiatric: Present: A&O x's 3, appropriate affect, intact judgment & insight - Allied health notes Allied health notes reviewed: nursing - Labs CBC & Chem 7: 08/31/19 04:45 08/31/19 04:45 Labs: Abnormal Lab Results - Last 24 Hours (Table) 08/30/19 08/30/19 08/30/19 Range/Units 08:15 09:20 10:09 RBC (4.30-5.90) m/uL Hgb (13.0-17.5) gm/dL Hct (39.0-53.0) % Plt Count (150-450) k/uL Sodium (137-145) mmol/L Glucose (74-99) mg/dL POC Glucose (mg/dL) 140 H 139 H 145 H (75-99) mg/dL Calcium (8.4-10.2) mg/dL Total Protein (6.3-8.2) g/dL Albumin (3.5-5.0) g/dL 08/30/19 08/30/19 08/30/19 Range/Units 11:22 11:57 14:01 RBC (4.30-5.90) m/uL Hgb (13.0-17.5) gm/dL Hct (39.0-53.0) % Plt Count (150-450) k/uL Sodium (137-145) mmol/L Glucose (74-99) mg/dL POC Glucose (mg/dL) 148 H 155 H 137 H (75-99) mg/dL Calcium (8.4-10.2) mg/dL Total Protein (6.3-8.2) g/dL Albumin (3.5-5.0) g/dL 08/30/19 08/30/19 08/31/19 Range/Units 15:13 17:40 00:08 RBC (4.30-5.90) m/uL Hgb (13.0-17.5) gm/dL Hct (39.0-53.0) % Plt Count (150-450) k/uL Sodium (137-145) mmol/L Glucose (74-99) mg/dL POC Glucose (mg/dL) 137 H 173 H 119 H (75-99) mg/dL Calcium (8.4-10.2) mg/dL Total Protein (6.3-8.2) g/dL Albumin (3.5-5.0) g/dL 08/31/19 08/31/19 08/31/19 Range/Units 02:48 04:14 04:45 RBC 2.48 L (4.30-5.90) m/uL Hgb 7.7 L (13.0-17.5) gm/dL Hct 23.4 L (39.0-53.0) % Plt Count 119 L (150-450) k/uL Sodium (137-145) mmol/L Glucose (74-99) mg/dL POC Glucose (mg/dL) 112 H 184 H (75-99) mg/dL Calcium (8.4-10.2) mg/dL Total Protein (6.3-8.2) g/dL Albumin (3.5-5.0) g/dL 08/31/19 08/31/19 Range/Units 04:45 05:56 RBC (4.30-5.90) m/uL Hgb (13.0-17.5) gm/dL Hct (39.0-53.0) % Plt Count (150-450) k/uL Sodium 135 L (137-145) mmol/L Glucose 173 H (74-99) mg/dL POC Glucose (mg/dL) 189 H (75-99) mg/dL Calcium 7.3 L (8.4-10.2) mg/dL Total Protein 4.9 L (6.3-8.2) g/dL Albumin 2.8 L (3.5-5.0) g/dL - Imaging and Cardiology Chest x-ray: image reviewed Assessment and Plan Assessment: 1. Triple-vessel coronary artery disease with totally occluded collateralized right coronary artery, status post three-vessel CABG 2. Overall preserved left ventricular function 3. Mild aortic stenosis 4. History of hypertension 5. Hyperlipidemia 6. Old myocardial infarction with prior stenting to the circumflex artery in 2010 7. Type 2 diabetes with preoperative hemoglobin A1c 8.9% 8. Current tobacco dependence 9. Mild COPD with preoperative FEV1 63% of predicted 10. Obesity 11. Umbilical and epigastric hernia 12. Family history of premature coronary artery disease 13. Postoperative acute blood loss anemia Plan: 1. Continue aspirin, statin, Plavix, beta kevin therapy. Will increase beta kevin therapy as tolerated. Will add JOSE JUAN/ARB for afterload reduction when able 2. Continue oral Cardizem for radial artery spasm prophylaxis 3. Wean O2 as tolerated. Encourage incentive spirometry use 10 times every hour while awake. Bronchodilators per pulmonology. 4. Increase activity, ambulate as tolerated. PT/OT/cardiac rehab following 5. Will monitor daily labs and x-rays. Electro replacement per protocol. No transfusion. Oral iron/vitamin C added 6. Pain control with current medication regimen 7. Insulin/diabetic management per primary care service 8. Will discontinue mediastinal chest tubes. Will leave left pleural chest tube for another 24 hours 9. Discontinue Acosta catheter. May bladder scan and straight cathed for greater than 300 mL residual 10. IV Lasix today 11. Discontinue arterial line. Establish peripheral IV, discontinue Cordis 12. Will place transfer orders for 3 self cardiac stepdown unit. Pain transfer when bed available 13. Discharge planning in progress. Anticipate discharge to home with home care Tuesday or Tuesday. This was discussed with the patient and his 14. More recommendations to follow based on patient's progress Time with Patient: Greater than 30
[2019-08-31 09:49] LABS: Glucose,Whole Blood 217 mg/dL (75-99)
--- NOTE | 2019-08-31 12:10 | PN ---
PROGRESS NOTE Pb is a 63-year-old gentleman who is admitted to hospital following bypass surgery. Today is postop day #3. He is doing well and is free of significant symptoms. Remains in sinus rhythm at times with sinus tachycardia. The predominant symptom is in the form of chest pain at the chest incision site. On exam, heart rate is 100 beats per minute, blood pressure is 131/60, respiratory rate is 18. Heart exam reveals first and second heart sounds. No gallop. No murmur. Exam of the extremities did not reveal any edema. Chest exam reveals diminished air entry at the bases. LABS: Show a hemoglobin of 7.7, potassium is 4.2, creatinine is 0.9. ASSESSMENT: Coronary artery disease status post coronary artery bypass grafting, postoperative day #3. PLAN: Patient will continue aspirin, Lipitor, Plavix, Cardizem, metoprolol that he is currently on. MMODL / IJN: [id number] /
[2019-08-31 12:19] LABS: Glucose,Whole Blood 150 mg/dL (75-99)
[2019-08-31] MEDS: INSULIN ASPART (NovoLOG) 100 UNIT/ML VIAL SQ SCH ×3 (12:20→21:01)
--- NOTE | 2019-08-31 13:24 | P.PN ---
Subjective Progress Note Date: 08/31/19 This is a 63-year-old male patient of Dr. Reyes with past medical history of diabetes mellitus type 2, hypertension, hyperlipidemia, history of [place] in 2011 status post stent of the circumflex. Patient found to have triple- vessel coronary artery disease with totally occluded collateralized right coronary artery, overall preserved left ventricular function, mild aortic stenosis, mild COPD with preoperative FEV1 63% of predicted, obesity, umbilical and epigastric hernia. Patient was brought into the hospital under the care of Dr. Luna status post triple coronary artery bypass grafting using the left internal mammary artery to the left anterior descending artery, left radial artery from the aorta to the obtuse marginal artery, reverse saphenous vein graft from the aorta to the posterior descending artery, postoperative day #1. Patient was successfully extubated last evening. Patient states that he walked in the hallway to the nurse's desk and back. He is complaining of feeling tired fatigue and sore in general. He has a little pain with deep breathing. He is using incentive spirometry at 800 mL. field services director is a normal sinus rhythm. Patient is currently on insulin drip and blood sugars are running between 139 148. Patient is known to have some subcutaneous emphysema in the upper chest area. Chest tubes, Acosta catheter, pacer wires in place. 08/31: Mediastinal and left pleural chest tubes, right internal jugular Cordis have been removed this morning. Acosta catheter is removed and patient able to void on his own. field services director is a sinus rhythm. Patient has been hemodynamically stable. He has been able to ambulate in the hallway. Patient is scheduled for transfer to the cardiac stepdown unit. Patient states he only ate a few bites of breakfast. He is on insulin drip which will be transitioned to his oral dose of Januvia and metformin. Levaquin added at 18 units daily and insulin drip may be discontinued. His outpatient hemoglobin A1c was 8.9. Discharge plan is home with home care on Tuesday. Review of Systems Constitutional: Reports fatigue, denies weakness, reports decreased appetite, Denies chills, Denies fever, Denies lethargy, Denies malaise Eyes: denies blurred vision, denies pain Ears, nose, mouth and throat: Denies dysphagia, Denies headache, Denies nasal congestion, Denies nasal discharge, Denies sore throat, Denies vertigo Cardiovascular: Denies chest pain, Denies decreased exercise tolerance, Denies dyspnea on exertion, Denies lightheadedness, Denies shortness of breath, Denies syncope Respiratory: Denies cough, Denies cough with sputum, Denies excessive sputum, Denies hemoptysis, Denies home oxygen, Denies respiratory infections Gastrointestinal: Denies abdominal pain, Denies diarrhea, Denies loss of appetite, Denies nausea, Denies vomiting Genitourinary: Denies dysuria, Denies urinary frequency, Denies urinary retention Musculoskeletal: Denies frequent falls, Denies gait dysfunction, Denies muscle weakness, Denies myalgias Integumentary: Denies pruritus, Denies rash, reports lower extremity edema Neurological: Denies change in mentation, Denies change in speech, Denies numbness, Denies seizures, Denies weakness Psychiatric: Denies anxiety, Denies depression Endocrine: Denies fatigue, Denies weight change Objective - Vital Signs Vital signs: Vital Signs Temp 98.2 F 08/31/19 08:00 Pulse 101 H 08/31/19 10:00 Resp 18 08/31/19 10:00 BP 113/66 08/31/19 10:00 Pulse Ox 94 L 08/31/19 10:00 Intake & Output 08/30/19 08/31/19 08/31/19 18:59 06:59 18:59 Intake Total 1214.846 450.065 108.979 Output Total 575 685 Balance 639.846 -234.935 108.979 Weight 94 kg Intake: IV 1.5 360 80 Nitroglycerine 1.5 Sodium Chloride 0.9% 1, 360 80 000 ml @ 20 mls/hr IV . Q24H [facility] Rx#:[id number] Intake, IV Titration 643.346 90.065 28.979 Amount Insulin Regular 100 unit 53.346 50.065 28.979 In Sodium Chloride 0.9% 100 ml @ Per Protocol IV .Q0M [facility] Rx#:[id number] Sodium Chloride 0.9% 1, 490 40 000 ml @ 20 mls/hr IV . Q24H [facility] Rx#:[id number] ceFAZolin 2 gm In Sodium 100 Chloride 0.9% 50 ml @ 100 mls/hr IVPB Q8HR [facility] Rx# :[id number] Oral 570 Output: Chest Tube Drainage 200 310 Chest Tube Mediastinal [address] pleural 160 240 Urine 375 375 Other: Voiding Method Indwelling Catheter Indwelling Catheter ABP, PAP, CO, CI - Last Documented Arterial Blood Pressure 128/49 Pulmonary Artery Pressure 22/11 Cardiac Output 7.6 Cardiac Index 3.8 - Exam Gen: This is a 63-year-old male. He is sitting up in bed and appears to be comfortable and in no acute distress. at bedside. HEENT: Head is atraumatic, normocephalic. Pupils equal, round. Sclerae is ani cteric. NECK: Supple. No JVD. No lymphadenopathy. No thyromegaly. LUNGS: Diminished bilaterally but otherwise clear to auscultation. No wheezes or rhonchi. No intercostal retractions. Rt Chest tubes in place to wall suction. HEART: Regular rate and rhythm. No murmur. Dressing in place to midsternum with no significant drainage or bleeding. ABDOMEN: Soft. Bowel sounds are present. No masses. No tenderness. EXTREMITIES: Mild pedal edema. No calf tenderness. NEUROLOGICAL: Patient is awake, alert and oriented x3. Cranial nerves 2 through 12 are grossly intact. - Labs CBC & Chem 7: 08/31/19 04:45 08/31/19 04:45 Labs: Abnormal Lab Results - Last 24 Hours (Table) 08/30/19 08/30/19 08/30/19 Range/Units 11:57 14:01 15:13 RBC (4.30-5.90) m/uL Hgb (13.0-17.5) gm/dL Hct (39.0-53.0) % Plt Count (150-450) k/uL Sodium (137-145) mmol/L Glucose (74-99) mg/dL POC Glucose (mg/dL) 155 H 137 H 137 H (75-99) mg/dL Calcium (8.4-10.2) mg/dL Total Protein (6.3-8.2) g/dL Albumin (3.5-5.0) g/dL 08/30/19 08/31/19 08/31/19 Range/Units 17:40 00:08 02:48 RBC (4.30-5.90) m/uL Hgb (13.0-17.5) gm/dL Hct (39.0-53.0) % Plt Count (150-450) k/uL Sodium (137-145) mmol/L Glucose (74-99) mg/dL POC Glucose (mg/dL) 173 H 119 H 112 H (75-99) mg/dL Calcium (8.4-10.2) mg/dL Total Protein (6.3-8.2) g/dL Albumin (3.5-5.0) g/dL 08/31/19 08/31/19 08/31/19 Range/Units 04:14 04:45 04:45 RBC 2.48 L (4.30-5.90) m/uL Hgb 7.7 L (13.0-17.5) gm/dL Hct 23.4 L (39.0-53.0) % Plt Count 119 L (150-450) k/uL Sodium 135 L (137-145) mmol/L Glucose 173 H (74-99) mg/dL POC Glucose (mg/dL) 184 H (75-99) mg/dL Calcium 7.3 L (8.4-10.2) mg/dL Total Protein 4.9 L (6.3-8.2) g/dL Albumin 2.8 L (3.5-5.0) g/dL 08/31/19 08/31/19 Range/Units 05:56 09:44 RBC (4.30-5.90) m/uL Hgb (13.0-17.5) gm/dL Hct (39.0-53.0) % Plt Count (150-450) k/uL Sodium (137-145) mmol/L Glucose (74-99) mg/dL POC Glucose (mg/dL) 189 H 217 H (75-99) mg/dL Calcium (8.4-10.2) mg/dL Total Protein (6.3-8.2) g/dL Albumin (3.5-5.0) g/dL Assessment and Plan Plan: 1. Triple-vessel coronary artery disease status post coronary artery bypass grafting, postoperative day #1. Continue current pain management, increase activity, incentive spirometry to reduce incidence of atelectasis and hospital- acquired pneumonia. Continue aspirin, Lipitor, Plavix, Lopressor, Cardizem, heparin subcu. 2. Diabetes mellitus type 2. Patient is currently on insulin drip and will be transitioned to scheduled Levemir 18 units daily, NovoLog scale, Janumet and metformin. A1c 8.9. 3. Hypertension. Continue Lopressor. 4. Hyperlipidemia. Continue statin. 5. History of coronary artery disease with previous stenting of the circumflex.. 6. Mild COPD, stable without exacerbation. 7. GI prophylaxis. Protonix. 8. DVT prophylaxis. Heparin subcu. Discharge plan: Home with home care on Tuesday Impression and plan of care have been directed as dictated by the signing physician. Rosalia Burns nurse practitioner acting as scribe for signing physician.
--- NOTE | 2019-08-31 13:34 | P.PN ---
Subjective Progress Note Date: 08/31/19 Principal diagnosis: Status post CABG postoperative day #2. This is a 63-year-old white male with history of multiple medical problems including hypertension, type 2 diabetes, previous [place] in 2010, and previous stenting of the circumflex. Patient was recently discovered to have triple- vessel coronary artery disease with preserved LV function. Mild aortic stenosis. He has baseline FEV1 of 63%. And he has history of a large umbilical hernia. Patient was seen by thoracic surgery on consultation, and yesterday he underwent coronary artery bypass grafting using the left internal mammary artery to the left anterior descending artery, left radial artery from the aorta to the obtuse marginal artery, reverse saphenous vein graft from the aorta to the posterior descending artery, postoperatively, patient was on mechanical ventilation, and I was asked to see him on consultation. I reviewed his chest x-ray, I reviewed his labs, and his ventilator settings were adjusted according to the ABG. 3 hours later the patient was placed on CPAP, and I was notified about his CPAP ABG, recommended extubating the patient over the phone. Patient did extremely well, tolerated the extubation well, and I'm seeing him today off mechanical ventilation, patient is doing extremely well. Denies any cough no wheezing no shortness of breath, feels mostly generally weak Reevaluated today on 08/31/2019, patient remains in the ICU, his postoperative day #2. Patient is sitting in a recliner, in no form of distress. Has some surgical type pain, denies any shortness of breath, still doing poorly with incentive spirometry. Chest x-ray showed mostly bibasilar atelectasis which is expected. Overall the patient is doing great, he is not requiring any inotropes or any pressors. Patient is already ambulating in the hallway earlier today. Hemoglobin today is 7.7. Chest x-ray again showed small bilateral effusions and postoperative atelectasis, expected in patients post surgery/CABG Objective - Vital Signs Vital signs: Vital Signs Temp 98.2 F 08/31/19 12:00 Pulse 84 08/31/19 12:00 Resp 23 08/31/19 12:00 BP 114/60 08/31/19 12:00 Pulse Ox 95 08/31/19 12:00 Intake & Output 08/30/19 08/31/19 08/31/19 18:59 06:59 18:59 Intake Total 1214.846 450.065 148.979 Output Total 575 685 360 Balance 639.846 -234.935 -211.021 Weight 94 kg 94 kg Intake: IV 1.5 360 120 Nitroglycerine 1.5 Sodium Chloride 0.9% 1, 360 120 000 ml @ 20 mls/hr IV . Q24H [facility] Rx#:[id number] Intake, IV Titration 643.346 90.065 28.979 Amount Insulin Regular 100 unit 53.346 50.065 28.979 In Sodium Chloride 0.9% 100 ml @ Per Protocol IV .Q0M [facility] Rx#:[id number] Sodium Chloride 0.9% 1, 490 40 000 ml @ 20 mls/hr IV . Q24H [facility] Rx#:[id number] ceFAZolin 2 gm In Sodium 100 Chloride 0.9% 50 ml @ 100 mls/hr IVPB Q8HR [facility] Rx# :[id number] Oral 570 Output: Chest Tube Drainage 200 310 60 Chest Tube Mediastinal [address] lt pleural 160 240 60 Urine 375 375 300 Other: Voiding Method Indwelling Catheter Indwelling Catheter Urinal ABP, PAP, CO, CI - Last Documented Arterial Blood Pressure 128/49 Pulmonary Artery Pressure 22/11 Cardiac Output 7.6 Cardiac Index 3.8 - Exam Physical Exam: Revealed a 63-year-old white male in no distress. Head: Atraumatic, normocephalic. HEENT:[Neck is supple.] [No neck masses.] [No thyromegaly.] [No JVD.] PERRLA, EOMI, no icterus. Moist mucous membranes. Chest: [Diminished breath sounds at the bases no crackles or rhonchi or wheezes. Chest tubes noted to wall suction. Cardiac Exam: [Normal S1 and S2, no S3 gallop, 2/6 systolic murmur thought the precordium. Positive pericardial rub. Abdomen: [Soft, nontender, no megaly, no rebound, no guarding, normal bowel sounds.] Large umbilical hernia is noted. Extremities: [No clubbing, no edema, no cyanosis.] Good pulses bilaterally. Neurological Exam: [No focal neurologic deficit. Alert and oriented 3. Psychiatric: Normal mood, affect and normal mental status examination. Skin: No rashes.] - Labs CBC & Chem 7: 08/31/19 04:45 08/31/19 04:45 Labs: Abnormal Lab Results - Last 24 Hours (Table) 08/30/19 08/30/19 08/30/19 Range/Units 14:01 15:13 17:40 RBC (4.30-5.90) m/uL Hgb (13.0-17.5) gm/dL Hct (39.0-53.0) % Plt Count (150-450) k/uL Sodium (137-145) mmol/L Glucose (74-99) mg/dL POC Glucose (mg/dL) 137 H 137 H 173 H (75-99) mg/dL Calcium (8.4-10.2) mg/dL Total Protein (6.3-8.2) g/dL Albumin (3.5-5.0) g/dL 08/31/19 08/31/19 08/31/19 Range/Units 00:08 02:48 04:14 RBC (4.30-5.90) m/uL Hgb (13.0-17.5) gm/dL Hct (39.0-53.0) % Plt Count (150-450) k/uL Sodium (137-145) mmol/L Glucose (74-99) mg/dL POC Glucose (mg/dL) 119 H 112 H 184 H (75-99) mg/dL Calcium (8.4-10.2) mg/dL Total Protein (6.3-8.2) g/dL Albumin (3.5-5.0) g/dL 08/31/19 08/31/19 08/31/19 Range/Units 04:45 04:45 05:56 RBC 2.48 L (4.30-5.90) m/uL Hgb 7.7 L (13.0-17.5) gm/dL Hct 23.4 L (39.0-53.0) % Plt Count 119 L (150-450) k/uL Sodium 135 L (137-145) mmol/L Glucose 173 H (74-99) mg/dL POC Glucose (mg/dL) 189 H (75-99) mg/dL Calcium 7.3 L (8.4-10.2) mg/dL Total Protein 4.9 L (6.3-8.2) g/dL Albumin 2.8 L (3.5-5.0) g/dL 08/31/19 08/31/19 Range/Units 09:44 12:17 RBC (4.30-5.90) m/uL Hgb (13.0-17.5) gm/dL Hct (39.0-53.0) % Plt Count (150-450) k/uL Sodium (137-145) mmol/L Glucose (74-99) mg/dL POC Glucose (mg/dL) 217 H 150 H (75-99) mg/dL Calcium (8.4-10.2) mg/dL Total Protein (6.3-8.2) g/dL Albumin (3.5-5.0) g/dL Assessment and Plan Assessment: Impression: Status post triple-vessel CABG, postoperative day #2 History of mild COPD, asymptomatic. Type 2 diabetes without complications. Hypertension. Dyslipidemia. Umbilical hernia. Postoperative atelectasis and small pleural effusions, expected Recommendation: Continue beta blockers Plavix statin aspirin Wean oxygen as tolerated. Incentive spirometry. Continue bronchodilators. Continue ambulation in the hallway.. Monitor daily chest x-rays. Pain control. Insulin for diabetes management. Discontinue on the same lines and catheters We'll continue to follow while in the ICU. Time with Patient: Less than 30
[2019-08-31] MEDS: LINAGLIPTIN 5 MG TABLET PO SCH (13:46)
[2019-08-31 17:08] LABS: Glucose,Whole Blood 199 mg/dL (75-99)
[2019-08-31] MEDS: metFORMIN 500 MG TAB PO SCH (17:20)
[2019-08-31 20:34] LABS: Glucose,Whole Blood 184 mg/dL (75-99)
[2019-08-31] MEDS: SENNOSIDES-DOCUSATE SODIUM 1 EACH TAB PO SCH (21:01)
[2019-09-01] MEDS: HYDROcodone/APAP 5-325MG 1 EACH TAB PO PRN ×5 (00:09→20:56)
[2019-09-01] MEDS: DILTIAZEM ORAL 30 MG TAB PO SCH ×5 (00:09→23:12)
[2019-09-01] MEDS: KETOROLAC 30 MG/ML 1 ML VIAL IVP SCH ×5 (00:10→23:11)
[2019-09-01] MEDS: HEPARIN SODIUM,PORCINE 5,000 UNIT/ML 1 ML VIAL SQ SCH ×4 (00:10→23:12)
[2019-09-01 02:17] LABS: Glucose,Whole Blood 194 mg/dL (75-99)
[2019-09-01] MEDS: ASCORBIC ACID 500 MG TAB PO SCH ×2 (05:45→17:09)
[2019-09-01] MEDS: PANTOPRAZOLE 40 MG TABLET PO SCH (05:45)
[2019-09-01] MEDS: FERROUS SULFATE 325 MG TAB PO SCH ×2 (05:46→17:09)
[2019-09-01 06:42] LABS: HCT 23.2 % (39.0-53.0); HGB 7.6 gm/dL (13.0-17.5); MCH 31.6 pg (25.0-35.0); MCHC 32.7 g/dL (31.0-37.0); MCV 96.4 fL (80.0-100.0); Mean Platelet Volume 10.7; Platelet Count 137 k/uL (150-450); RDW 14.3 % (11.5-15.5); WBC 9.8 k/uL (3.8-10.6)
--- NOTE | 2019-09-01 06:52 | XR ---
EXAMINATION TYPE: XR chest 1V portable DATE OF EXAM: 09/01/2019 HISTORY: post cardiac surgery. REFERENCE: Previous study dated 08/31/2019. FINDINGS: There has been a midline sternotomy. The heart remains enlarged. There is a left pleural dr ain in place. There is bibasilar atelectasis. I suspect a small left effusion IMPRESSION: CONTINUING POSTOPERATIVE CHANGE.
[2019-09-01 06:57] LABS: Calcium 7.8 mg/dL (8.4-10.2); Magnesium 2.3 mg/dL (1.6-2.3); Potassium 4.5 mmol/L (3.5-5.1)
[2019-09-01 07:32] LABS: Glucose,Whole Blood 219 mg/dL (75-99)
--- NOTE | 2019-09-01 07:54 | P.PN ---
Subjective Progress Note Date: 09/01/19 Principal diagnosis: Triple vessel coronary artery disease with totally occluded collateralized right coronary artery, overall preserved left ventricular function, mild aortic sten osis. Previous medical history of hypertension, hyperlipidemia, old myocardial infarction with prior stenting to the circumflex artery in 2010, type 2 diabetes mellitus with preoperative hemoglobin A1c 8.9%, current tobacco dependence, mild COPD with preoperative FEV1 63% of predicted, obesity, umbilical and epigastric hernia, and family history of premature coronary artery disease. POD #3 triple coronary artery bypass grafting using the left internal mammary artery to the left anterior descending artery, left radial artery from the aorta to the obtuse marginal artery, reverse saphenous vein graft from the aorta to the posterior descending artery. Endoscopic harvesting of the left radial artery. Endoscopic harvesting of the left greater saphenous vein from the groin to the mid lower leg level. Intraoperative transesophageal echocardiogram and epi-aortic scanning. Intraoperative graft flow measurements using the Flow Tradersim system. Postoperative acute blood loss anemia, expected secondary to hemodilution and cardiopulmonary bypass pump. The patient is currently sitting up in bed in the cardiac stepdown unit. Does continue complain of surgical type of chest pain, denies shortness of breath. Attempting to use incentive spirometry. Left pleural chest tube present. Remains in normal sinus rhythm, hemodynamically stable. Patient ambulated in the hallway yesterday. Complains that he was up and awake most of the night. Objective - Vital Signs Vital signs: Vital Signs Temp 98 F 09/01/19 04:53 Pulse 88 09/01/19 04:53 Resp 20 09/01/19 04:53 BP 113/67 09/01/19 04:53 Pulse Ox 92 L 09/01/19 04:53 Intake & Output 08/31/19 09/01/19 09/01/19 18:59 06:59 18:59 Intake Total 268.979 Output Total 840 350 Balance -571.021 -350 Weight 94 kg 94.6 kg Intake: IV 120 Sodium Chloride 0.9% 1, 120 000 ml @ 20 mls/hr IV . Q24H [facility] Rx#:[id number] Intake, IV Titration 28.979 Amount Insulin Regular 100 unit 28.979 In Sodium Chloride 0.9% 100 ml @ Per Protocol IV .Q0M [facility] Rx#:[id number] Oral 120 Output: Chest Tube Drainage 140 ct lt pleural 140 Urine 700 350 Other: Voiding Method Urinal Urinal ABP, PAP, CO, CI - Last Documented Arterial Blood Pressure 128/49 Pulmonary Artery Pressure 22/11 Cardiac Output 7.6 Cardiac Index 3.8 - Constitutional General appearance: Present: cooperative, no acute distress, obese - Respiratory Details: Lungs sounds diminished bilaterally. Respirations even, nonlabored. Currently on 4 L nasal cannula with oxygen saturation 92%. Able to achieve 750 mL on his incentive spirometry. Weak cough. Left pleural chest tubes present continuous wall suction, 400 mL of thin serosanguineous drainage in the last 24 hours. No air leaks present. - Cardiovascular Details: S1, S2 present. Regular rate and rhythm, sinus rhythm on telemetry. Sternum stable. Atrial epicardial pacemaker wires present, grounded. Palpable peripheral pulses bilaterally. No edema present. No calf pain or tenderness noted. Heart hugger in place with patient demonstrating appropriate use. Antiembolism stockings present. - Gastrointestinal Gastrointestinal Comment(s): Abdomen soft, nontender, nondistended, obese. Active bowel sounds present 4 quadrants. Tolerating diet. Positive flatus. - Genitourinary Genitourinary Comment(s): Voiding clear, yellow urine. - Integumentary Integumentary Comment(s): Skin is warm and dry with evidence of good perfusion. Anterior chest incision well approximated and covered with dry intact dressing. Left radial artery h arvest site well approximated. Patient able to wiggle all fingers and access tech appropriately, skin is pink with good cap refill, patient denies numbness or tingling to his left hand. Left lower extremity EVH site well approximated. - Neurologic Neurologic: Present: CNII-XII intact - Musculoskeletal Musculoskeletal: Present: gait normal, strength equal bilaterally - Psychiatric Psychiatric: Present: A&O x's 3, appropriate affect, intact judgment & insight - Allied health notes Allied health notes reviewed: nursing - Labs CBC & Chem 7: 09/01/19 06:11 09/01/19 06:11 Labs: Abnormal Lab Results - Last 24 Hours (Table) 08/31/19 08/31/19 08/31/19 Range/Units 09:44 12:17 17:07 RBC (4.30-5.90) m/uL Hgb (13.0-17.5) gm/dL Hct (39.0-53.0) % Plt Count (150-450) k/uL Sodium (137-145) mmol/L Carbon Dioxide (22-30) mmol/L BUN (9-20) mg/dL Glucose (74-99) mg/dL POC Glucose (mg/dL) 217 H 150 H 199 H (75-99) mg/dL Calcium (8.4-10.2) mg/dL 08/31/19 09/01/19 09/01/19 Range/Units 20:32 02:14 06:11 RBC 2.40 L (4.30-5.90) m/uL Hgb 7.6 L (13.0-17.5) gm/dL Hct 23.2 L (39.0-53.0) % Plt Count 137 L (150-450) k/uL Sodium (137-145) mmol/L Carbon Dioxide (22-30) mmol/L BUN (9-20) mg/dL Glucose (74-99) mg/dL POC Glucose (mg/dL) 184 H 194 H (75-99) mg/dL Calcium (8.4-10.2) mg/dL 09/01/19 09/01/19 Range/Units 06:11 07:30 RBC (4.30-5.90) m/uL Hgb (13.0-17.5) gm/dL Hct (39.0-53.0) % Plt Count (150-450) k/uL Sodium 133 L (137-145) mmol/L Carbon Dioxide 21 L (22-30) mmol/L BUN 32 H (9-20) mg/dL Glucose 189 H (74-99) mg/dL POC Glucose (mg/dL) 219 H (75-99) mg/dL Calcium 7.8 L (8.4-10.2) mg/dL - Imaging and Cardiology Chest x-ray: report reviewed, image reviewed Assessment and Plan Assessment: 1. Triple-vessel coronary artery disease with totally occluded collateralized right coronary artery, status post three-vessel CABG 2. Overall preserved left ventricular function 3. Mild aortic stenosis 4. History of hypertension 5. Hyperlipidemia 6. Old myocardial infarction with prior stenting to the circumflex artery in 2010 7. Type 2 diabetes with preoperative hemoglobin A1c 8.9% 8. Current tobacco dependence 9. Mild COPD with preoperative FEV1 63% of predicted 10. Obesity 11. Umbilical and epigastric hernia 12. Family history of premature coronary artery disease 13. Postoperative acute blood loss anemia Plan: 1. Continue aspirin, statin, Plavix, beta kevin therapy. Will increase beta kevin therapy as tolerated. Will add JOSE JUAN/ARB for afterload reduction when able 2. Continue oral Cardizem for radial artery spasm prophylaxis 3. Wean O2 as tolerated. Encourage incentive spirometry use 10 times every hour while awake. Bronchodilators per pulmonology. 4. Increase activity, ambulate as tolerated. PT/OT/cardiac rehab following 5. Will monitor daily labs and x-rays. Electro replacement per protocol. No transfusion. 6. Pain control with current medication regimen 7. Insulin/diabetic management per primary care service 8. Continue left pleural chest tube for another 24 hours 9. No lasix today 10. Discharge planning in progress. Anticipate discharge to home with home care Tuesday or Tuesday. 11. More recommendations to follow based on patient's progress Time with Patient: Greater than 30
[2019-09-01] MEDS: INSULIN ASPART (NovoLOG) 100 UNIT/ML VIAL SQ SCH ×6 (08:17→20:56)
[2019-09-01] MEDS: INSULIN DETEMIR (LEVEMIR) 100 UNIT/ML SYR SQ SCH (08:17)
[2019-09-01] MEDS: CLOPIDOGREL 75 MG TAB PO SCH (08:18)
[2019-09-01] MEDS: ATORVASTATIN 40 MG TAB PO SCH (08:18)
[2019-09-01] MEDS: METOPROLOL TARTRATE 50 MG TAB PO SCH ×2 (08:18→20:20)
[2019-09-01] MEDS: metFORMIN 500 MG TAB PO SCH ×2 (08:18→17:09)
[2019-09-01] MEDS: LINAGLIPTIN 5 MG TABLET PO SCH (08:18)
[2019-09-01] MEDS: ASPIRIN 325 MG TAB PO SCH (08:18)
[2019-09-01] MEDS: IPRATROPIUM-ALBUTEROL 3 ML NEB INHALATION SCH ×4 (09:17→20:51)
--- NOTE | 2019-09-01 11:07 | P.PN ---
Subjective Progress Note Date: 09/01/19 This is a 63-year-old male patient with past medical history of diabetes mellitus type 2, hypertension, hyperlipidemia, history of [place] in 2011 status post stent of the circumflex. Patient found to have triple-vessel coronary artery disease with totally occluded collateralized right coronary dru ry, overall preserved left ventricular function, mild aortic stenosis, mild COPD with preoperative FEV1 63% of predicted, obesity, umbilical and epigastric hernia. Patient was brought into the hospital under the care of Dr. Luna status post triple coronary artery bypass grafting using the left internal mammary artery to the left anterior descending artery, left radial artery from the aorta to the obtuse marginal artery, reverse saphenous vein graft from the aorta to the posterior descending artery., 09/01: Patient is now seen on the selective care unit. Patient denies having any chest pain. He is complaining of shortness of breath with ambulation. He is reaching 750 on incentive spirometry. Patient remains with [address] Patient states he is urinating without difficulty. He is complaining of constipation but does not want any medication for this. Patient is complaining of lower extremity edema. Patient has been afebrile, heart rate 96, blood pressure 120/55, pulse ox 96% on 4 L nasal cannula. Patient remains in a normal sinus rhythm. WBC 9.8, hemoglobin 7.6, platelets of 137. Sodium 133, potassium 4.5, chloride 102, CO2 21, BUN 32 and creatinine 1.07. Objective - Vital Signs Vital signs: Vital Signs Temp 97.6 F 09/01/19 08:00 Pulse 100 09/01/19 09:30 Resp 20 09/01/19 04:53 BP 120/55 09/01/19 08:00 Pulse Ox 96 09/01/19 09:20 Intake & Output 08/31/19 09/01/19 09/01/19 18:59 06:59 18:59 Intake Total 268.979 240 Output Total 840 350 150 Balance -571.021 -350 90 Weight 94 kg 94.6 kg Intake: IV 120 Sodium Chloride 0.9% 1, 120 000 ml @ 20 mls/hr IV . Q24H [facility] Rx#:[id number] Intake, IV Titration 28.979 Amount Insulin Regular 100 unit 28.979 In Sodium Chloride 0.9% 100 ml @ Per Protocol IV .Q0M [facility] Rx#:[id number] Oral 120 240 Output: Chest Tube Drainage 140 ct lt pleural 140 Urine 700 350 150 Other: Voiding Method Urinal Urinal ABP, PAP, CO, CI - Last Documented Arterial Blood Pressure 128/49 Pulmonary Artery Pressure 22/11 Cardiac Output 7.6 Cardiac Index 3.8 - Exam Gen: This is a 63-year-old male. He is sitting up in bed and appears to be comfortable and in no acute distress. at bedside. HEENT: Head is atraumatic, normocephalic. Pupils equal, round. Sclerae is anicteric. NECK: Supple. No JVD. No lymphadenopathy. No thyromegaly. LUNGS: Diminished bilaterally but otherwise clear to auscultation. No wheezes or rhonchi. No intercostal retractions. Rt Chest tubes in place to wall suction. HEART: Regular rate and rhythm. No murmur. Dressing in place to midsternum with no significant drainage or bleeding. ABDOMEN: Soft. Bowel sounds are present. No masses. No tenderness. EXTREMITIES: Mild pedal edema. No calf tenderness. NEUROLOGICAL: Patient is awake, alert and oriented x3. Cranial nerves 2 through 12 are grossly intact. - Labs CBC & Chem 7: 09/01/19 06:11 09/01/19 06:11 Labs: Abnormal Lab Results - Last 24 Hours (Table) 08/31/19 08/31/19 08/31/19 Range/Units 12:17 17:07 20:32 RBC (4.30-5.90) m/uL Hgb (13.0-17.5) gm/dL Hct (39.0-53.0) % Plt Count (150-450) k/uL Sodium (137-145) mmol/L Carbon Dioxide (22-30) mmol/L BUN (9-20) mg/dL Glucose (74-99) mg/dL POC Glucose (mg/dL) 150 H 199 H 184 H (75-99) mg/dL Calcium (8.4-10.2) mg/dL 09/01/19 09/01/19 09/01/19 Range/Units 02:14 06:11 06:11 RBC 2.40 L (4.30-5.90) m/uL Hgb 7.6 L (13.0-17.5) gm/dL Hct 23.2 L (39.0-53.0) % Plt Count 137 L (150-450) k/uL Sodium 133 L (137-145) mmol/L Carbon Dioxide 21 L (22-30) mmol/L BUN 32 H (9-20) mg/dL Glucose 189 H (74-99) mg/dL POC Glucose (mg/dL) 194 H (75-99) mg/dL Calcium 7.8 L (8.4-10.2) mg/dL 09/01/19 Range/Units 07:30 RBC (4.30-5.90) m/uL Hgb (13.0-17.5) gm/dL Hct (39.0-53.0) % Plt Count (150-450) k/uL Sodium (137-145) mmol/L Carbon Dioxide (22-30) mmol/L BUN (9-20) mg/dL Glucose (74-99) mg/dL POC Glucose (mg/dL) 219 H (75-99) mg/dL Calcium (8.4-10.2) mg/dL Assessment and Plan Plan: Assessment: Triple-vessel coronary artery disease status post coronary artery bypass grafting Diabetes mellitus type 2. Hypertension. Hyperlipidemia. History of coronary artery disease with previous stenting of the circumflex. Mild COPD Plan: Continue current medications including aspirin, Lipitor, Plavix, Lopressor, Cardizem. Increase activity, incentive spirometry. Further recommendations patient progresses. Nurse practitioner note has been reviewed, I agree with documented findings and plan of care. Patient was seen and examined.
[2019-09-01 12:19] LABS: Glucose,Whole Blood 190 mg/dL (75-99)
--- NOTE | 2019-09-01 12:58 | P.PN ---
Subjective Progress Note Date: 09/01/19 Principal diagnosis: Coronary artery disease status post coronary artery bypass grafting, postoperative day #3 This is a 63-year-old white male with history of multiple medical problems including hypertension, type 2 diabetes, previous [place] in 2010, and previous stenting of the circumflex. Patient was recently discovered to have triple- vessel coronary artery disease with preserved LV function. Mild aortic stenosis. He has baseline FEV1 of 63%. And he has history of a large umbilical hernia. Patient was seen by thoracic surgery on consultation, and yesterday he underwent coronary artery bypass grafting using the left internal mammary artery to the left anterior descending artery, left radial artery from the aorta to the obtuse marginal artery, reverse saphenous vein graft from the aorta to the posterior descending artery, postoperatively, patient was on mechanical ventilation, and I was asked to see him on consultation. I reviewed his chest x-ray, I reviewed his labs, and his ventilator settings were adjusted according to the ABG. 3 hours later the patient was placed on CPAP, and I was notified about his CPAP ABG, recommended extubating the patient over the phone. Patient did extremely well, tolerated the extubation well, and I'm seeing him today off mechanical ventilation, patient is doing extremely well. Denies any cough no wheezing no shortness of breath, feels mostly generally weak Reevaluated today on 08/31/2019, patient remains in the ICU, his postoperative day #2. Patient is sitting in a recliner, in no form of distress. Has some surgical type pain, denies any shortness of breath, still doing poorly with incentive spirometry. Chest x-ray showed mostly bibasilar atelectasis which is expected. Overall the patient is doing great, he is not requiring any inotropes or any pressors. Patient is already ambulating in the hallway earlier today. Hemoglobin today is 7.7. Chest x-ray again showed small bilateral effusions and postoperative atelectasis, expected in patients post surgery/CABG The patient is seen today 09/01/2019 in follow-up on the selective care unit. He is currently awake and alert in no acute distress. Sitting up in a chair at the bedside. Maintaining O2 saturations in the mid 90s on 4 L/m per nasal cannula. He is afebrile. Hemodynamically stable. White count 9.8. Hemoglobin 7.6. Platelet count 137,000. Sodium 133. Potassium 4.5. Creatinine 1.07. Chest x-ray reveals bibasilar atelectasis. Left chest tube remains in place. He is working well with the incentive spirometer. Objective - Vital Signs Vital signs: Vital Signs Temp 97.6 F 09/01/19 08:00 Pulse 104 H 09/01/19 12:08 Resp 20 09/01/19 04:53 BP 108/55 09/01/19 12:00 Pulse Ox 95 09/01/19 12:00 Intake & Output 08/31/19 09/01/19 09/01/19 18:59 06:59 18:59 Intake Total 268.979 240 Output Total 840 350 150 Balance -571.021 -350 90 Weight 94 kg 94.6 kg Intake: IV 120 Sodium Chloride 0.9% 1, 120 000 ml @ 20 mls/hr IV . Q24H [facility] Rx#:[id number] Intake, IV Titration 28.979 Amount Insulin Regular 100 unit 28.979 In Sodium Chloride 0.9% 100 ml @ Per Protocol IV .Q0M [facility] Rx#:[id number] Oral 120 240 Output: Chest Tube Drainage 140 ct lt pleural 140 Urine 700 350 150 Other: Voiding Method Urinal Urinal ABP, PAP, CO, CI - Last Documented Arterial Blood Pressure 128/49 Pulmonary Artery Pressure 22/11 Cardiac Output 7.6 Cardiac Index 3.8 - Exam GENERAL EXAM: Alert, pleasant 63-year-old gentleman, on 4 L nasal cannula, comfortable in no apparent distress. HEAD: Normocephalic. EYES: Normal reaction of pupils, equal size. NOSE: Clear with pink turbinates. THROAT: No erythema or exudates. NECK: No masses, no JVD. CHEST: No chest wall deformity. Chest tube remains in place LUNGS: Equal air entry with crackles in the bilateral posterior bases. CVS: S1 and S2 normal with no audible murmur, regular rhythm. ABDOMEN: No hepatosplenomegaly, normal bowel sounds, no guarding or rigidity. SPINE: No scoliosis or deformity SKIN: No rashes CENTRAL NERVOUS SYSTEM: No focal deficits, tone is normal in all 4 extremities. EXTREMITIES: There is no peripheral edema. No clubbing, no cyanosis. Peripheral pulses are intact. - Labs CBC & Chem 7: 09/01/19 06:11 09/01/19 06:11 Labs: Abnormal Lab Results - Last 24 Hours (Table) 08/31/19 08/31/19 09/01/19 Range/Units 17:07 20:32 02:14 RBC (4.30-5.90) m/uL Hgb (13.0-17.5) gm/dL Hct (39.0-53.0) % Plt Count (150-450) k/uL Sodium (137-145) mmol/L Carbon Dioxide (22-30) mmol/L BUN (9-20) mg/dL Glucose (74-99) mg/dL POC Glucose (mg/dL) 199 H 184 H 194 H (75-99) mg/dL Calcium (8.4-10.2) mg/dL 09/01/19 09/01/19 09/01/19 Range/Units 06:11 06:11 07:30 RBC 2.40 L (4.30-5.90) m/uL Hgb 7.6 L (13.0-17.5) gm/dL Hct 23.2 L (39.0-53.0) % Plt Count 137 L (150-450) k/uL Sodium 133 L (137-145) mmol/L Carbon Dioxide 21 L (22-30) mmol/L BUN 32 H (9-20) mg/dL Glucose 189 H (74-99) mg/dL POC Glucose (mg/dL) 219 H (75-99) mg/dL Calcium 7.8 L (8.4-10.2) mg/dL 09/01/19 Range/Units 12:18 RBC (4.30-5.90) m/uL Hgb (13.0-17.5) gm/dL Hct (39.0-53.0) % Plt Count (150-450) k/uL Sodium (137-145) mmol/L Carbon Dioxide (22-30) mmol/L BUN (9-20) mg/dL Glucose (74-99) mg/dL POC Glucose (mg/dL) 190 H (75-99) mg/dL Calcium (8.4-10.2) mg/dL Assessment and Plan Assessment: Status post triple-vessel CABG, postoperative day #3 History of mild COPD, asymptomatic. Type 2 diabetes without complications. Hypertension. Dyslipidemia. Umbilical hernia. Postoperative atelectasis and small pleural effusions, expected Recommendation: The patient is seen and evaluated by Dr. Monteiro. Chest x-ray and labs reviewed. He is stable from the pulmonary/critical care standpoint. Working well with the incentive spirometer. Continue bronchodilators. Titrate down the FiO2 as tolerated. Increase his activity as tolerated. We will continue to follow and make further recommendations based on his clinical status. I, the cosigning physician, performed a history & physical examination of the patient. Lungs sounds with bibasilar crackles. Maintaining good O2 saturations in the 90s on 4 L/m per nasal cannula. I discussed the assessment and plan of care with my nurse practitioner, Nesha Olivia. I attest to the above note as dictated by her.
--- NOTE | 2019-09-01 13:15 | P.PN ---
Subjective Progress Note Date: 09/01/19 This is a 63-year-old male patient of Dr. Reyes with past medical history of diabetes mellitus type 2, hypertension, hyperlipidemia, history of [place] in 2011 status post stent of the circumflex. Patient found to have triple- vessel coronary artery disease with totally occluded collateralized right coronary artery, overall preserved left ventricular function, mild aortic stenosis, mild COPD with preoperative FEV1 63% of predicted, obesity, umbilical and epigastric hernia. Patient was brought into the hospital under the care of Dr. Luna status post triple coronary artery bypass grafting using the left internal mammary artery to the left anterior descending artery, left radial artery from the aorta to the obtuse marginal artery, reverse saphenous vein graft from the aorta to the posterior descending artery, postoperative day #1. Patient was successfully extubated last evening. Patient states that he walked in the hallway to the nurse's desk and back. He is complaining of feeling tired fatigue and sore in general. He has a little pain with deep breathing. He is using incentive spirometry at 800 mL. telemetry monitor is a normal sinus rhythm. Patient is currently on insulin drip and blood sugars are running between 139 148. Patient is known to have some subcutaneous emphysema in the upper chest area. Chest tubes, Acosta catheter, pacer wires in place. 08/31: Mediastinal and left pleural chest tubes, right internal jugular Cordis have been removed this morning. Acosta catheter is removed and patient able to void on his own. telemetry monitor is a sinus rhythm. Patient has been hemodynamically stable. He has been able to ambulate in the hallway. Patient is scheduled for transfer to the cardiac stepdown unit. Patient states he only ate a few bites of breakfast. He is on insulin drip which will be transitioned to his oral dose of Januvia and metformin. Levaquin added at 18 units daily and insulin drip may be discontinued. His outpatient hemoglobin A1c was 8.9. Discharge plan is home with home care on Tuesday. 09/01: Patient is now seen on the selective care unit. Patient denies having any chest pain. He is complaining of shortness of breath with ambulation. He is reaching 750 on incentive spirometry. Patient remains with [address] Patient states he is urinating without difficulty. He is complaining of constipation but does not want any medication for this. Patient is complaining of lower extremity edema. Patient has been afebrile, heart rate 96, blood pressure 120/55, pulse ox 96% on 4 L nasal cannula. Patient remains in a normal sinus rhythm. WBC 9.8, hemoglobin 7.6, platelets of 137. Sodium 133, potassium 4.5, chloride 102, CO2 21, BUN 32 and creatinine 1.07. Her blood sugars are running between 189 and 219. Patient has been resumed back on Januvia, metformin, Levemir started. NovoLog scale. NovoLog scheduled 5 units with meals will be added. Iron studies ordered. Patient denies any blood in the stools, Review of Systems Constitutional: Reports fatigue, denies weakness, reports decreased appetite, Denies chills, Denies fever, Denies lethargy, Denies malaise Eyes: denies blurred vision, denies pain Ears, nose, mouth and throat: Denies dysphagia, Denies headache, Denies nasal congestion, Denies nasal discharge, Denies sore throat, Denies vertigo Cardiovascular: Denies chest pain, Denies decreased exercise tolerance, Denies dyspnea on exertion, Denies lightheadedness, Denies shortness of breath, Denies syncope Respiratory: Denies cough, Denies cough with sputum, Denies excessive sputum, Denies hemoptysis, Denies home oxygen, Denies respiratory infections Gastrointestinal: Denies abdominal pain, Denies diarrhea, Denies loss of appetite, Denies nausea, Denies vomiting, reports constipation Genitourinary: Denies dysuria, Denies urinary frequency, Denies urinary retention Musculoskeletal: Denies frequent falls, Denies gait dysfunction, Denies muscle weakness, Denies myalgias Integumentary: Denies pruritus, Denies rash, reports lower extremity edema Neurological: Denies change in mentation, Denies change in speech, Denies numbness, Denies seizures, Denies weakness Psychiatric: Denies anxiety, Denies depression Endocrine: Denies fatigue, Denies weight change Objective - Vital Signs Vital signs: Vital Signs Temp 97.6 F 09/01/19 08:00 Pulse 100 09/01/19 09:30 Resp 20 09/01/19 04:53 BP 120/55 09/01/19 08:00 Pulse Ox 96 09/01/19 09:20 Intake & Output 08/31/19 09/01/19 09/01/19 18:59 06:59 18:59 Intake Total 268.979 240 Output Total 840 350 150 Balance -571.021 -350 90 Weight 94 kg 94.6 kg Intake: IV 120 Sodium Chloride 0.9% 1, 120 000 ml @ 20 mls/hr IV . Q24H [facility] Rx#:[id number] Intake, IV Titration 28.979 Amount Insulin Regular 100 unit 28.979 In Sodium Chloride 0.9% 100 ml @ Per Protocol IV .Q0M [facility] Rx#:[id number] Oral 120 240 Output: Chest Tube Drainage 140 ct lt pleural 140 Urine 700 350 150 Other: Voiding Method Urinal Urinal ABP, PAP, CO, CI - Last Documented Arterial Blood Pressure 128/49 Pulmonary Artery Pressure 22/11 Cardiac Output 7.6 Cardiac Index 3.8 - Exam Gen: This is a 63-year-old male. He is sitting up in chair on the Cardiac Stepdown Unit and appears to be comfortable and in no acute distress. at bedside. HEENT: Head is atraumatic, normocephalic. Pupils equal, round. Sclerae is anicteric. NECK: Supple. No JVD. No lymphadenopathy. No thyromegaly. LUNGS: Diminished bilaterally but otherwise clear to auscultation. No wheezes or rhonchi. No intercostal retractions. Rt Chest tubes in place to wall suction. HEART: Regular rate and rhythm. No murmur. Dressing in place to midsternum with no significant drainage or bleeding. ABDOMEN: Soft. Bowel sounds are present. No masses. No tenderness. EXTREMITIES: Mild pedal edema. No calf tenderness. NEUROLOGICAL: Patient is awake, alert and oriented x3. Cranial nerves 2 through 12 are grossly intact. - Labs CBC & Chem 7: 09/01/19 06:11 09/01/19 06:11 Labs: Abnormal Lab Results - Last 24 Hours (Table) 08/31/19 08/31/19 08/31/19 Range/Units 12:17 17:07 20:32 RBC (4.30-5.90) m/uL Hgb (13.0-17.5) gm/dL Hct (39.0-53.0) % Plt Count (150-450) k/uL Sodium (137-145) mmol/L Carbon Dioxide (22-30) mmol/L BUN (9-20) mg/dL Glucose (74-99) mg/dL POC Glucose (mg/dL) 150 H 199 H 184 H (75-99) mg/dL Calcium (8.4-10.2) mg/dL 09/01/19 09/01/19 09/01/19 Range/Units 02:14 06:11 06:11 RBC 2.40 L (4.30-5.90) m/uL Hgb 7.6 L (13.0-17.5) gm/dL Hct 23.2 L (39.0-53.0) % Plt Count 137 L (150-450) k/uL Sodium 133 L (137-145) mmol/L Carbon Dioxide 21 L (22-30) mmol/L BUN 32 H (9-20) mg/dL Glucose 189 H (74-99) mg/dL POC Glucose (mg/dL) 194 H (75-99) mg/dL Calcium 7.8 L (8.4-10.2) mg/dL 09/01/19 Range/Units 07:30 RBC (4.30-5.90) m/uL Hgb (13.0-17.5) gm/dL Hct (39.0-53.0) % Plt Count (150-450) k/uL Sodium (137-145) mmol/L Carbon Dioxide (22-30) mmol/L BUN (9-20) mg/dL Glucose (74-99) mg/dL POC Glucose (mg/dL) 219 H (75-99) mg/dL Calcium (8.4-10.2) mg/dL Assessment and Plan Plan: 1. Triple-vessel coronary artery disease status post coronary artery bypass grafting, postoperative day #3. Continue current pain management, increase activity, incentive spirometry to reduce incidence of atelectasis and hospital- acquired pneumonia. Continue aspirin, Lipitor, Plavix, Lopressor, Cardizem, heparin subcu. 2. Diabetes mellitus type 2. Patient is currently on insulin drip and will be transitioned to scheduled Levemir 18 units daily, NovoLog scale, Janzoeyt and m etformin. A1c 8.9. Add NovoLog 5 units with meals. 3. Hypertension. Continue Lopressor. 4. Hyperlipidemia. Continue statin. 5. History of coronary artery disease with previous stenting of the circumflex.. 6. Mild COPD, stable without exacerbation. 7. GI prophylaxis. Protonix. 8. DVT prophylaxis. Heparin subcu. Discharge plan: Home with home care on Tuesday Impression and plan of care have been directed as dictated by the signing physician. Rosalia Burns nurse practitioner acting as scribe for signing physician.
[2019-09-01 16:56] LABS: Glucose,Whole Blood 173 mg/dL (75-99)
[2019-09-01] MEDS: SENNOSIDES-DOCUSATE SODIUM 1 EACH TAB PO SCH (20:20)
[2019-09-01 20:29] LABS: Glucose,Whole Blood 180 mg/dL (75-99)
[2019-09-01 23:36] LABS: % Iron Saturation 13.28 (15.00-50.00)
[2019-09-01 23:44] LABS: Ferritin 189.1 ng/mL (22.0-322.0)
[2019-09-02] MEDS: HYDROcodone/APAP 5-325MG 1 EACH TAB PO PRN (02:04)
[2019-09-02] MEDS: ASCORBIC ACID 500 MG TAB PO SCH ×2 (06:30→18:03)
[2019-09-02] MEDS: FERROUS SULFATE 325 MG TAB PO SCH (06:30)
[2019-09-02] MEDS: PANTOPRAZOLE 40 MG TABLET PO SCH (06:30)
[2019-09-02] MEDS: KETOROLAC 30 MG/ML 1 ML VIAL IVP SCH ×3 (06:30→18:04)
[2019-09-02] MEDS: metFORMIN 500 MG TAB PO SCH ×2 (06:31→18:03)
[2019-09-02 06:59] LABS: Glucose,Whole Blood 157 mg/dL (75-99)
[2019-09-02] MEDS: IPRATROPIUM-ALBUTEROL 3 ML NEB INHALATION SCH ×4 (07:01→21:01)
[2019-09-02] MEDS: INSULIN ASPART (NovoLOG) 100 UNIT/ML VIAL SQ SCH ×7 (07:08→20:31)
[2019-09-02 07:21] LABS: HCT 22.8 % (39.0-53.0); HGB 7.2 gm/dL (13.0-17.5); Hypochromasia Slight; MCH 30.5 pg (25.0-35.0); MCHC 31.7 g/dL (31.0-37.0); Platelet Count 160 k/uL (150-450); RBC 2.37 m/uL (4.30-5.90); WBC 10.1 k/uL (3.8-10.6)
[2019-09-02 07:25] LABS: African American GFR (CKD) >90 (>60 ml/min/1.73 sqM); Anion Gap 9 mmol/L; Blood Urea Nitrogen 38 mg/dL (9-20); Calcium 8.2 mg/dL (8.4-10.2); Carbon Dioxide 23 mmol/L (22-30); Chloride 102 mmol/L (98-107); Glucose 143 mg/dL (74-99); Magnesium 2.5 mg/dL (1.6-2.3); Non-African American GFR(CKD) 79 (>60 ml/min/1.73 sqM); Potassium 4.4 mmol/L (3.5-5.1); Sodium 134 mmol/L (137-145)
[2019-09-02] MEDS: LINAGLIPTIN 5 MG TABLET PO SCH (08:22)
[2019-09-02] MEDS: METOPROLOL TARTRATE 50 MG TAB PO SCH ×2 (08:22→19:57)
[2019-09-02] MEDS: ATORVASTATIN 40 MG TAB PO SCH (08:22)
[2019-09-02] MEDS: HEPARIN SODIUM,PORCINE 5,000 UNIT/ML 1 ML VIAL SQ SCH ×3 (08:22→23:14)
[2019-09-02] MEDS: CLOPIDOGREL 75 MG TAB PO SCH (08:22)
[2019-09-02] MEDS: ASPIRIN 325 MG TAB PO SCH (08:22)
[2019-09-02] MEDS: INSULIN DETEMIR (LEVEMIR) 100 UNIT/ML SYR SQ SCH (10:13)
[2019-09-02] MEDS ORDERED: HYDROcodone/APAP 7.5-325MG 1 EACH TAB PO PRN (10:37)
--- NOTE | 2019-09-02 10:56 | P.PN ---
Subjective Progress Note Date: 09/02/19 Principal diagnosis: Triple vessel coronary artery disease with totally occluded collateralized right coronary artery, overall preserved left ventricular function, mild aortic sten osis. Previous medical history of hypertension, hyperlipidemia, old myocardial infarction with prior stenting to the circumflex artery in 2010, type 2 diabetes mellitus with preoperative hemoglobin A1c 8.9%, current tobacco dependence, mild COPD with preoperative FEV1 63% of predicted, obesity, umbilical and epigastric hernia, and family history of premature coronary artery disease. POD #4 triple coronary artery bypass grafting using the left internal mammary artery to the left anterior descending artery, left radial artery from the aorta to the obtuse marginal artery, reverse saphenous vein graft from the aorta to the posterior descending artery. Endoscopic harvesting of the left radial artery. Endoscopic harvesting of the left greater saphenous vein from the groin to the mid lower leg level. Intraoperative transesophageal echocardiogram and epi-aortic scanning. Intraoperative graft flow measurements using the [employer] system. Postoperative acute blood loss anemia, expected secondary to hemodilution and cardiopulmonary bypass pump. The patient is currently sitting up in a recliner on the cardiac stepdown unit. Does continue complain of surgical type of chest pain, complains of some shortness of breath with activity. Attempting to use incentive spirometry. Left pleural chest tube present. Remains in normal sinus rhythm, hemodynamically stable. Patient ambulated in the hallway yesterday. Daughter was concerned this morning that he wasn't acting right, currently alert and oriented and appropriate. Objective - Vital Signs Vital signs: Vital Signs Temp 98.1 F 09/02/19 08:00 Pulse 86 09/02/19 10:43 Resp 20 09/02/19 08:00 BP 115/59 09/02/19 08:00 Pulse Ox 95 09/02/19 08:00 Intake & Output 09/01/19 09/02/19 09/02/19 18:59 06:59 18:59 Intake Total 577 80 Output Total 450 280 465 Balance 127 -280 -385 Weight 98.3 kg Intake: Oral 577 80 Output: Chest Tube Drainage [address] lt pleural 80 40 Urine 450 200 425 Other: Voiding Method Urinal # Voids 1 ABP, PAP, CO, CI - Last Documented Arterial Blood Pressure 128/49 Pulmonary Artery Pressure 22/11 Cardiac Output 7.6 Cardiac Index 3.8 - Constitutional General appearance: Present: cooperative, no acute distress, obese - Respiratory Details: Lungs sounds diminished bilaterally. Respirations even, nonlabored. Currently on room air with oxygen saturation 95%. Able to achieve 1000 mL on his incentive spirometry. Strong cough. Left pleural chest tubes present continuous wall suction, 50 mL thin serous drainage overnight, 120 mL in the l ast 24 hours. No air leaks present. - Cardiovascular Details: S1, S2 present. Regular rate and rhythm, sinus rhythm on telemetry. Sternum stable. Atrial epicardial pacemaker wires present, grounded. Palpable peripheral pulses bilaterally. Trace bilateral upper extremity edema present. No calf pain or tenderness noted. Heart hugger in place with patient demonstrating appropriate use. Antiembolism stockings present. - Gastrointestinal Gastrointestinal Comment(s): Abdomen soft, nontender, nondistended, obese. Active bowel sounds present 4 quadrants. Tolerating diet. Positive small bowel movement this morning - Genitourinary Genitourinary Comment(s): Continues to void clear, yellow urine - Integumentary Integumentary Comment(s): Skin is warm and dry with evidence of good perfusion. Anterior chest incision well approximated and covered with dry intact dressing. Left radial artery harvest site well approximated. 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 Left lower extremity EVH site well approximated. - Neurologic Neurologic: Present: CNII-XII intact - Musculoskeletal Musculoskeletal: Present: gait normal, strength equal bilaterally - Psychiatric Psychiatric: Present: A&O x's 3, appropriate affect, intact judgment & insight - Allied health notes Allied health notes reviewed: nursing - Labs CBC & Chem 7: 09/02/19 06:39 09/02/19 06:39 Labs: Abnormal Lab Results - Last 24 Hours (Table) 09/01/19 09/01/19 09/01/19 Range/Units 06:11 12:18 16:47 RBC (4.30-5.90) m/uL Hgb (13.0-17.5) gm/dL Hct (39.0-53.0) % Sodium (137-145) mmol/L BUN (9-20) mg/dL Glucose (74-99) mg/dL POC Glucose (mg/dL) 190 H 173 H (75-99) mg/dL Calcium (8.4-10.2) mg/dL Magnesium (1.6-2.3) mg/dL Iron 34 L (65-175) ug/dL % Saturation 13.28 L (15.00-50.00) 09/01/19 09/02/19 09/02/19 Range/Units 20:27 06:39 06:39 RBC 2.37 L (4.30-5.90) m/uL Hgb 7.2 L (13.0-17.5) gm/dL Hct 22.8 L (39.0-53.0) % Sodium 134 L (137-145) mmol/L BUN 38 H (9-20) mg/dL Glucose 143 H (74-99) mg/dL POC Glucose (mg/dL) 180 H (75-99) mg/dL Calcium 8.2 L (8.4-10.2) mg/dL Magnesium 2.5 H (1.6-2.3) mg/dL Iron (65-175) ug/dL % Saturation (15.00-50.00) 09/02/19 Range/Units 06:57 RBC (4.30-5.90) m/uL Hgb (13.0-17.5) gm/dL Hct (39.0-53.0) % Sodium (137-145) mmol/L BUN (9-20) mg/dL Glucose (74-99) mg/dL POC Glucose (mg/dL) 157 H (75-99) mg/dL Calcium (8.4-10.2) mg/dL Magnesium (1.6-2.3) mg/dL Iron (65-175) ug/dL % Saturation (15.00-50.00) - Imaging and Cardiology Chest x-ray: image reviewed Assessment and Plan Assessment: 1. Triple-vessel coronary artery disease with totally occluded collateralized right coronary artery, status post three-vessel CABG 2. Overall preserved left ventricular function 3. Mild aortic stenosis 4. History of hypertension 5. Hyperlipidemia 6. Old myocardial infarction with prior stenting to the circumflex artery in 2010 7. Type 2 diabetes with preoperative hemoglobin A1c 8.9% 8. Current tobacco dependence 9. Mild COPD with preoperative FEV1 63% of predicted 10. Obesity 11. Umbilical and epigastric hernia 12. Family history of premature coronary artery disease 13. Postoperative acute blood loss anemia Plan: 1. Continue aspirin, statin, Plavix, beta kevin therapy. Will increase beta kevin therapy as tolerated. 2. Continue oral Cardizem for radial artery spasm prophylaxis. DO NOT discontinue without discussing with cardiac surgery 3. Encourage incentive spirometry use 10 times every hour while awake. Bronch odilators per pulmonology. 4. Increase activity, ambulate as tolerated. PT/OT/cardiac rehab following 5. Will monitor daily labs and x-rays. Electro replacement per protocol. No transfusion. 6. Pain control with current medication regimen 7. Insulin/diabetic management per primary care service 8. Left pleural chest tube discontinued without incident. Bilateral breath sounds equal. 9. No lasix today. Epicardial PMW to be discontinued Tuesday 10. Discharge planning in progress. Anticipate discharge to home with home care Tuesday. 11. More recommendations to follow based on patient's progress Time with Patient: Greater than 30
[2019-09-02 12:15] LABS: Glucose,Whole Blood 171 mg/dL (75-99)
[2019-09-02] MEDS: DILTIAZEM CD 120 MG CAP.ER.24H PO SCH (12:36)
--- NOTE | 2019-09-02 12:44 | P.PN ---
Subjective Progress Note Date: 09/02/19 This is a 63-year-old male patient of Dr. Reyes with past medical history of diabetes mellitus type 2, hypertension, hyperlipidemia, history of OR in 2011 status post stent of the circumflex. Patient found to have triple- vessel coronary artery disease with totally occluded collateralized right coronary artery, overall preserved left ventricular function, mild aortic stenosis, mild COPD with preoperative FEV1 63% of predicted, obesity, umbilical and epigastric hernia. Patient was brought into the hospital under the care of Dr. Luna status post triple coronary artery bypass grafting using the left internal mammary artery to the left anterior descending artery, left radial artery from the aorta to the obtuse marginal artery, reverse saphenous vein graft from the aorta to the posterior descending artery, postoperative day #1. Patient was successfully extubated last evening. Patient states that he walked in the hallway to the nurse's desk and back. He is complaining of feeling tired fatigue and sore in general. He has a little pain with deep breathing. He is using incentive spirometry at 800 mL. classroom monitor is a normal sinus rhythm. Patient is currently on insulin drip and blood sugars are running between 139 148. Patient is known to have some subcutaneous emphysema in the upper chest area. Chest tubes, Acosta catheter, pacer wires in place. 08/31: Mediastinal and left pleural chest tubes, right internal jugular Cordis have been removed this morning. Acosta catheter is removed and patient able to void on his own. classroom monitor is a sinus rhythm. Patient has been hemodynamically stable. He has been able to ambulate in the hallway. Patient is scheduled for transfer to the cardiac stepdown unit. Patient states he only ate a few bites of breakfast. He is on insulin drip which will be transitioned to his oral dose of Januvia and metformin. Levaquin added at 18 units daily and insulin drip may be discontinued. His outpatient hemoglobin A1c was 8.9. Discharge plan is home with home care on Tuesday. 09/01: Patient is now seen on the selective care unit. Patient denies having any chest pain. He is complaining of shortness of breath with ambulation. He is reaching 750 on incentive spirometry. Patient remains with [address] Patient states he is urinating without difficulty. He is complaining of constipation but does not want any medication for this. Patient is complaining of lower extremity edema. Patient has been afebrile, heart rate 96, blood pressure 120/55, pulse ox 96% on 4 L nasal cannula. Patient remains in a normal sinus rhythm. WBC 9.8, hemoglobin 7.6, platelets of 137. Sodium 133, potassium 4.5, chloride 102, CO2 21, BUN 32 and creatinine 1.07. Her blood sugars are running between 189 and 219. Patient has been resumed back on Januvia, metformin, Levemir started. NovoLog scale. NovoLog scheduled 5 units with meals will be added. Iron studies ordered. Patient denies any blood in the stools, 09/02: Patient is seen today sitting up in a recliner. He has been complaining of constipation but has been able to have a bowel movement this morning. Iron studies show low iron and Ferrlecit for 2 doses will be added. He is complaining of difficulty sleeping and melatonin increased to 10 mg. Blood sug ars are improved at 143-180. Patient is not currently eating very much classroom monitor is in normal sinus rhythm. Left pleural chest tube remains in place. Anticipate discharge home tomorrow. Review of Systems Constitutional: Reports fatigue, denies weakness, reports decreased appetite, Denies chills, Denies fever, Denies lethargy, Denies malaise Eyes: denies blurred vision, denies pain Ears, nose, mouth and throat: Denies dysphagia, Denies headache, Denies nasal congestion, Denies nasal discharge, Denies sore throat, Denies vertigo Cardiovascular: Denies chest pain, Denies decreased exercise tolerance, Denies dyspnea on exertion, Denies lightheadedness, Denies shortness of breath, Denies syncope Respiratory: Denies cough, Denies cough with sputum, Denies excessive sputum, Denies hemoptysis, Denies home oxygen, Denies respiratory infections Gastrointestinal: Denies abdominal pain, Denies diarrhea, Denies loss of appet ite, Denies nausea, Denies vomiting, reports constipation Genitourinary: Denies dysuria, Denies urinary frequency, Denies urinary retention Musculoskeletal: Denies frequent falls, Denies gait dysfunction, Denies muscle weakness, Denies myalgias Integumentary: Denies pruritus, Denies rash, reports lower extremity edema Neurological: Denies change in mentation, Denies change in speech, Denies numbne ss, Denies seizures, Denies weakness Psychiatric: Denies anxiety, Denies depression Endocrine: Denies fatigue, Denies weight change, reports abnormal blood sugars Objective - Vital Signs Vital signs: Vital Signs Temp 98.0 F 09/02/19 12:00 Pulse 93 09/02/19 12:00 Resp 20 09/02/19 12:00 BP 115/59 09/02/19 12:00 Pulse Ox 95 09/02/19 12:00 Intake & Output 09/01/19 09/02/19 09/02/19 18:59 06:59 18:59 Intake Total 577 80 Output Total 450 280 465 Balance 127 -280 -385 Weight 98.3 kg Intake: Oral 577 80 Output: Chest Tube Drainage [address] lt pleural 80 40 Urine 450 200 425 Other: Voiding Method Urinal Toilet # Voids 1 ABP, PAP, CO, CI - Last Documented Arterial Blood Pressure 128/49 Pulmonary Artery Pressure 22/11 Cardiac Output 7.6 Cardiac Index 3.8 - Exam Gen: This is a 63-year-old male. He is sitting up in chair on the Cardiac Stepdown Unit and appears to be comfortable and in no acute distress. HEENT: Head is atraumatic, normocephalic. Pupils equal, round. Sclerae is anicteric. NECK: Supple. No JVD. No lymphadenopathy. No thyromegaly. LUNGS: Diminished bilaterally but otherwise clear to auscultation. No wheezes or rhonchi. No intercostal retractions. Rt Chest tubes in place to wall suction. HEART: Regular rate and rhythm. No murmur. Dressing in place to midsternum with no significant drainage or bleeding. ABDOMEN: Soft. Bowel sounds are present. No masses. No tenderness. EXTREMITIES: Mild pedal edema. No calf tenderness. NEUROLOGICAL: Patient is awake, alert and oriented x3. Cranial nerves 2 through 12 are grossly intact. - Labs CBC & Chem 7: 09/02/19 06:39 09/02/19 06:39 Labs: Abnormal Lab Results - Last 24 Hours (Table) 09/01/19 09/01/19 09/01/19 Range/Units 06:11 16:47 20:27 RBC (4.30-5.90) m/uL Hgb (13.0-17.5) gm/dL Hct (39.0-53.0) % Sodium (137-145) mmol/L BUN (9-20) mg/dL Glucose (74-99) mg/dL POC Glucose (mg/dL) 173 H 180 H (75-99) mg/dL Calcium (8.4-10.2) mg/dL Magnesium (1.6-2.3) mg/dL Iron 34 L (65-175) ug/dL % Saturation 13.28 L (15.00-50.00) 09/02/19 09/02/19 09/02/19 Range/Units 06:39 06:39 06:57 RBC 2.37 L (4.30-5.90) m/uL Hgb 7.2 L (13.0-17.5) gm/dL Hct 22.8 L (39.0-53.0) % Sodium 134 L (137-145) mmol/L BUN 38 H (9-20) mg/dL Glucose 143 H (74-99) mg/dL POC Glucose (mg/dL) 157 H (75-99) mg/dL Calcium 8.2 L (8.4-10.2) mg/dL Magnesium 2.5 H (1.6-2.3) mg/dL Iron (65-175) ug/dL % Saturation (15.00-50.00) 09/02/19 Range/Units 12:14 RBC (4.30-5.90) m/uL Hgb (13.0-17.5) gm/dL Hct (39.0-53.0) % Sodium (137-145) mmol/L BUN (9-20) mg/dL Glucose (74-99) mg/dL POC Glucose (mg/dL) 171 H (75-99) mg/dL Calcium (8.4-10.2) mg/dL Magnesium (1.6-2.3) mg/dL Iron (65-175) ug/dL % Saturation (15.00-50.00) Assessment and Plan Plan: 1. Triple-vessel coronary artery disease status post coronary artery bypass grafting, postoperative day #4 Continue current pain management, increase activity, incentive spirometry to reduce incidence of atelectasis and hospital- acquired pneumonia. Continue aspirin, Lipitor, Plavix, Lopressor, Cardizem, heparin subcu. 2. Diabetes mellitus type 2. Patient is currently on insulin drip and will be transitioned to scheduled Levemir 18 units daily, NovoLog scale, Janumet and metformin. A1c 8.9. Add NovoLog 5 units with meals. 3. Hypertension. Continue Lopressor. 4. Hyperlipidemia. Continue statin. 5. History of coronary artery disease with previous stenting of the circumflex.. 6. Mild COPD, stable without exacerbation. 7. GI prophylaxis. Protonix. 8. DVT prophylaxis. Heparin subcu. 9. Insomnia melatonin increased to 10 mg. Discharge plan: Home with home care on Tuesday Impression and plan of care have been directed as dictated by the signing physician. Rosalia Burns nurse practitioner acting as scribe for signing physician.
--- NOTE | 2019-09-02 14:17 | XR ---
EXAMINATION TYPE: XR chest 2V DATE OF EXAM: 09/02/2019 HISTORY: post cabg. REFERENCE: Previous study dated 09/01/2019. FINDINGS: There has been a midline sternotomy. The heart is enlarged. There is improved aeration at the lung bases. There are small, bilateral effus ions. A left pleural drain remains in place. IMPRESSION: IMPROVING POSTOPERATIVE CHANGE.
--- NOTE | 2019-09-02 15:25 | P.PN ---
Subjective Progress Note Date: 09/02/19 Principal diagnosis: Status post CABG postoperative day #4 This is a 63-year-old white male with history of multiple medical problems including hypertension, type 2 diabetes, previous NE in 2010, and previous stenting of the circumflex. Patient was recently discovered to have triple- vessel coronary artery disease with preserved LV function. Mild aortic stenosis. He has baseline FEV1 of 63%. And he has history of a large umbilical hernia. Patient was seen by thoracic surgery on consultation, and yesterday he underwent coronary artery bypass grafting using the left internal mammary artery to the left anterior descending artery, left radial artery from the aorta to the obtuse marginal artery, reverse saphenous vein graft from the aorta to the posterior descending artery, postoperatively, patient was on mechanical ventilation, and I was asked to see him on consultation. I reviewed his chest x-ray, I reviewed his labs, and his ventilator settings were adjusted according to the ABG. 3 hours later the patient was placed on CPAP, and I was notified about his CPAP ABG, recommended extubating the patient over the phone. Patient did extremely well, tolerated the extubation well, and I'm seeing him today off mechanical ventilation, patient is doing extremely well. Denies any cough no wheezing no shortness of breath, feels mostly generally weak Reevaluated today on 08/31/2019, patient remains in the ICU, his postoperative day #2. Patient is sitting in a recliner, in no form of distress. Has some surgical type pain, denies any shortness of breath, still doing poorly with incentive spirometry. Chest x-ray showed mostly bibasilar atelectasis which is expected. Overall the patient is doing great, he is not requiring any inotropes or any pressors. Patient is already ambulating in the hallway earlier today. Hemoglobin today is 7.7. Chest x-ray again showed small bilateral effusions and postoperative atelectasis, expected in patients post surgery/CABG Reevaluated today on 09/02/2019, patient is now on selective, he is postoperative day #4. Sitting in a recliner, denies any shortness of breath cough or wheezing. Still doing poorly with incentive spirometry, but improving. His chest tube was removed today. And he is quite happy about this. Chest x-ray is basically unremarkable, small bilateral pleural effusions noted. Objective - Vital Signs Vital signs: Vital Signs Temp 98.0 F 02/09/20 12:00 Pulse 93 09/02/19 15:03 Resp 20 09/02/19 15:03 BP 115/59 09/02/19 12:00 Pulse Ox 95 09/02/19 12:00 Intake & Output 09/01/19 09/02/19 09/02/19 18:59 06:59 18:59 Intake Total 577 80 Output Total 450 280 465 Balance 127 -280 -385 Weight 98.3 kg Intake: Oral 577 80 Output: Chest Tube Drainage [address] lt pleural 80 40 Urine 450 200 425 Other: Voiding Method Urinal Toilet # Voids 1 ABP, PAP, CO, CI - Last Documented Arterial Blood Pressure 128/49 Pulmonary Artery Pressure 22/11 Cardiac Output 7.6 Cardiac Index 3.8 - Exam Physical Exam: Revealed a 63-year-old white male in no distress. Head: Atraumatic, normocephalic. HEENT:[Neck is supple.] [No neck masses.] [No thyromegaly.] [No JVD.] PERRLA, EOMI, no icterus. Moist mucous membranes. Chest: [Diminished breath sounds at the bases no crackles or rhonchi or wheezes. Cardiac Exam: [Normal S1 and S2, no S3 gallop, 2/6 systolic murmur thought the precordium. Abdomen: [Soft, nontender, no megaly, no rebound, no guarding, normal bowel sounds.] Large umbilical hernia is noted. Extremities: [No clubbing, no edema, no cyanosis.] Good pulses bilaterally. Neurological Exam: [No focal neurologic deficit. Alert and oriented 3. Psychiatric: Normal mood, affect and normal mental status examination. Skin: No rashes.] - Labs CBC & Chem 7: 09/02/19 06:39 09/02/19 06:39 Labs: Abnormal Lab Results - Last 24 Hours (Table) 09/01/19 09/01/19 09/01/19 Range/Units 06:11 16:47 20:27 RBC (4.30-5.90) m/uL Hgb (13.0-17.5) gm/dL Hct (39.0-53.0) % Sodium (137-145) mmol/L BUN (9-20) mg/dL Glucose (74-99) mg/dL POC Glucose (mg/dL) 173 H 180 H (75-99) mg/dL Calcium (8.4-10.2) mg/dL Magnesium (1.6-2.3) mg/dL Iron 34 L (65-175) ug/dL % Saturation 13.28 L (15.00-50.00) 09/02/19 09/02/19 09/02/19 Range/Units 06:39 06:39 06:57 RBC 2.37 L (4.30-5.90) m/uL Hgb 7.2 L (13.0-17.5) gm/dL Hct 22.8 L (39.0-53.0) % Sodium 134 L (137-145) mmol/L BUN 38 H (9-20) mg/dL Glucose 143 H (74-99) mg/dL POC Glucose (mg/dL) 157 H (75-99) mg/dL Calcium 8.2 L (8.4-10.2) mg/dL Magnesium 2.5 H (1.6-2.3) mg/dL Iron (65-175) ug/dL % Saturation (15.00-50.00) 09/02/19 Range/Units 12:14 RBC (4.30-5.90) m/uL Hgb (13.0-17.5) gm/dL Hct (39.0-53.0) % Sodium (137-145) mmol/L BUN (9-20) mg/dL Glucose (74-99) mg/dL POC Glucose (mg/dL) 171 H (75-99) mg/dL Calcium (8.4-10.2) mg/dL Magnesium (1.6-2.3) mg/dL Iron (65-175) ug/dL % Saturation (15.00-50.00) Assessment and Plan Assessment: Impression: Status post triple-vessel CABG, postoperative day #4 History of mild COPD, asymptomatic. Type 2 diabetes without complications. Hypertension. Dyslipidemia. Umbilical hernia. Postoperative atelectasis and small pleural effusions, expected Recommendation: Continue beta blockers Plavix statin aspirin Incentive spirometry. Continue bronchodilators. Continue ambulation in the hallway.. Pain control. Insulin for diabetes management. Discontinue on the same lines and catheters Consider discharge planning in the next 24 hours. Time with Patient: Less than 30
[2019-09-02 17:05] LABS: Glucose,Whole Blood 164 mg/dL (75-99)
[2019-09-02] MEDS: SODIUM FERRIC GLUCONAT-SUCROSE 125 MG in SODIUM CHLORIDE 0.9% 100 ML IVPB SCH (17:26)
[2019-09-02] MEDS: SENNOSIDES-DOCUSATE SODIUM 1 EACH TAB PO SCH (19:57)
[2019-09-02 20:16] LABS: Glucose,Whole Blood 181 mg/dL (75-99)
[2019-09-02] MEDS: MELATONIN 5 MG TABLET PO SCH (20:33)
[2019-09-02] MEDS ORDERED: MELATONIN 3 MG TABLET PO SCH (21:00)
--- NOTE | 2019-09-02 22:55 | PN ---
PROGRESS NOTE 63-year-old gentleman who underwent bypass surgery. This morning patient is doing well. He remains in sinus rhythm. Today is postop day number four. The patient is on aspirin, Lipitor, Plavix, Cardizem CARDIAC, Glucophage, Lopressor. PHYSICAL EXAM: Comfortable at rest. Vital signs are stable. There is no jugular venous distention. Carotid upstroke is normal. There is no bruit. Chest exam reveals diminished air entry at the bases. Heart exam reveals first and second heart sounds. No gallop. Exam of extremities reveals bilateral pitting edema. LABORATORY DATA: Labs show a hemoglobin of 7.2, platelet count is 160. Potassium is 4.4, creatinine is 1. ASSESSMENT: Coronary artery disease status post coronary artery bypass grafting. PLAN: Patient is making slow but steady recovery. Continue with incentive spirometry. Increase his activity. [id number] / IJN: [id number] /
[2019-09-03] MEDS: KETOROLAC 30 MG/ML 1 ML VIAL IVP SCH ×4 (01:15→17:10)
[2019-09-03 05:39] LABS: Glucose,Whole Blood 135 mg/dL (75-99)
[2019-09-03] MEDS: ASCORBIC ACID 500 MG TAB PO SCH ×2 (06:14→17:12)
[2019-09-03] MEDS: metFORMIN 500 MG TAB PO SCH ×2 (06:14→17:12)
[2019-09-03] MEDS: PANTOPRAZOLE 40 MG TABLET PO SCH (06:14)
[2019-09-03 06:29] LABS: HCT 21.7 % (39.0-53.0); Hypochromasia Slight; MCH 30.1 pg (25.0-35.0); MCHC 30.9 g/dL (31.0-37.0); MCV 97.4 fL (80.0-100.0); Mean Platelet Volume 10.4; Platelet Count 192 k/uL (150-450); RBC 2.23 m/uL (4.30-5.90); RDW 15.4 % (11.5-15.5); WBC 8.8 k/uL (3.8-10.6)
[2019-09-03 06:32] LABS: HGB 6.7 gm/dL (13.0-17.5)
[2019-09-03 06:50] LABS: African American GFR (CKD) >90 (>60 ml/min/1.73 sqM); Anion Gap 8 mmol/L; Blood Urea Nitrogen 37 mg/dL (9-20); Calcium 8.4 mg/dL (8.4-10.2); Carbon Dioxide 22 mmol/L (22-30); Chloride 104 mmol/L (98-107); Glucose 119 mg/dL (74-99); Non-African American GFR(CKD) 81 (>60 ml/min/1.73 sqM); Potassium 4.6 mmol/L (3.5-5.1); Sodium 134 mmol/L (137-145)
[2019-09-03 06:52] LABS: Glucose,Whole Blood 144 mg/dL (75-99)
[2019-09-03] MEDS: INSULIN ASPART (NovoLOG) 100 UNIT/ML VIAL SQ SCH ×6 (07:13→17:51)
[2019-09-03] MEDS: INSULIN DETEMIR (LEVEMIR) 100 UNIT/ML SYR SQ SCH (07:13)
[2019-09-03] MEDS: IPRATROPIUM-ALBUTEROL 3 ML NEB INHALATION SCH ×4 (07:28→21:16)
[2019-09-03] MEDS: METOPROLOL TARTRATE 50 MG TAB PO SCH ×2 (07:48→19:52)
[2019-09-03] MEDS: CLOPIDOGREL 75 MG TAB PO SCH (07:48)
[2019-09-03] MEDS: DILTIAZEM CD 120 MG CAP.ER.24H PO SCH (07:48)
[2019-09-03] MEDS: LINAGLIPTIN 5 MG TABLET PO SCH (07:49)
[2019-09-03] MEDS: HEPARIN SODIUM,PORCINE 5,000 UNIT/ML 1 ML VIAL SQ SCH ×2 (07:49→17:10)
[2019-09-03] MEDS: ATORVASTATIN 40 MG TAB PO SCH (07:49)
[2019-09-03] MEDS: ASPIRIN 325 MG TAB PO SCH (07:49)
--- NOTE | 2019-09-03 08:32 | XR ---
EXAMINATION TYPE: XR chest 2V DATE OF EXAM: 09/03/2019 COMPARISON: 09/02/2019 INDICATION: Post cardiac surgery TECHNIQUE: Frontal and lateral views of the chest are obtained. FINDINGS: The heart size is mildly prominent. The pulmonary vasculature is somewhat prominent. The lungs are clear. Artifact overlies the chest. Sternotomy wires are in the midline. IMPRESSION: 1. Mild cardiomegaly with mild prominence of pulmonary vascular markings. Correlate for volume overlo ad. Follow-up exams can be performed as clinically indicated.
--- NOTE | 2019-09-03 09:32 | P.PN ---
Subjective Progress Note Date: 09/03/19 Principal diagnosis: Triple vessel coronary artery disease with totally occluded collateralized right coronary artery, overall preserved left ventricular function, mild aortic valve stenosis. Past medical history of hypertension, hyperlipidemia, myocardial infarction with prior stenting to the circumflex coronary artery in 2010, type 2 diabetes mellitus with preoperative hemoglobin A1c 8.9%, current tobacco dependence, mild COPD with preoperative FEV1 63% of predicted value, obesity, umbilical and epigastric hernia, and family history of premature coronary artery disease in both his dad and two brothers. POD #5 triple coronary artery bypass grafting using the left internal mammary artery to the left anterior descending coronary artery, left radial artery from the aorta to the obtuse marginal coronary artery, reverse greater saphenous vein graft from the aorta to the posterior descending coronary artery. Endoscopic harvesting of the left radial artery. Endoscopic harvesting of the left greater saphenous vein from the groin to the mid lower leg level. Intraope rative transesophageal echocardiogram and epi-aortic scanning. Intraoperative graft flow measurements using the [employer] system. Postoperative acute blood loss anemia, expected secondary to hemodilution and cardiopulmonary bypass pump. Patient is currently sitting up to the bedside chair on the cardiac stepdown unit. He is in no acute distress and denies any complaints of pain or shortness of breath this time. The patient does report that he has some shortness of breath with activity. He states that he ambulated in the cardiac stepdown unit hallway 3 times yesterday with minimal assistance from the staff. Achieving 1250 mL on his incentive spirometry and his oxygen saturations are 96% on room air. Objective - Vital Signs Vital signs: Vital Signs Temp 97.9 F 09/03/19 07:43 Pulse 94 09/03/19 08:00 Resp 20 09/03/19 08:00 BP 119/56 09/03/19 07:43 Pulse Ox 96 09/03/19 07:43 Intake & Output 09/02/19 09/03/19 09/03/19 18:59 06:59 18:59 Intake Total 200 240 Output Total 890 Balance -690 240 Weight 97.4 kg 97.4 kg Intake: Oral 200 240 Output: Chest Tube Drainage 40 ct lt pleural 40 Urine 850 Other: Voiding Method Toilet Toilet # Voids 1 ABP, PAP, CO, CI - Last Documented Arterial Blood Pressure 128/49 Pulmonary Artery Pressure 22/11 Cardiac Output 7.6 Cardiac Index 3.8 - Constitutional General appearance: Present: cooperative, no acute distress, obese - Respiratory Details: Lung sounds are essentially clear to his bilateral upper lobes, diminished to his bilateral bases. No wheezes, rhonchi or crackles present. Respirations are symmetrical and nonlabored. Oxygen saturation is 96% on room air and achieving 1250 mL on his incentive spirometry. - Cardiovascular Details: Regular rhythm and rate. S1 and S2 present, negative for S3, gallop or murmur. Remote telemetry showing normal sinus rhythm heart rate 91. Heart hugger is in place and he is demonstrating appropriate use. Knee-high ROBY hose and sequential compression devices in place to his bilateral lower extremities. Atrial epicardial pacemaker wires in place and grounded. - Gastrointestinal Gastrointestinal Comment(s): Abdomen soft, nontender and nondistended. Active bowel sounds present in all 4 abdominal quadrants. No guarding or rigidity. No organomegaly appreciated. Tolerating oral intake. Bowel movement this a.m. - Genitourinary Genitourinary Comment(s): Voiding clear lois urine. - Integumentary Integumentary Comment(s): Skin is warm and dry. No clubbing or cyanosis is present. No rash or abnormal pigmentation is present. Midline sternal incision is clean, dry and approximated. No drainage or redness is present. Left radial artery harvest si roselia clean, dry and approximated. No drainage or redness is present. Left lower extremity EVH site is clean, dry and approximated. No drainage or redness is present. - Neurologic Neurologic: Present: CNII-XII intact - Musculoskeletal Musculoskeletal: Present: gait normal, generalized weakness, strength equal bilaterally - Psychiatric Psychiatric: Present: A&O x's 3, appropriate affect, intact judgment & insight - Allied health notes Allied health notes reviewed: nursing - Labs CBC & Chem 7: 09/03/19 05:59 09/03/19 05:59 Labs: Abnormal Lab Results - Last 24 Hours (Table) 09/02/19 09/02/19 09/02/19 Range/Units 12:14 17:03 20:14 RBC (4.30-5.90) m/uL Hgb (13.0-17.5) gm/dL Hct (39.0-53.0) % MCHC (31.0-37.0) g/dL Sodium (137-145) mmol/L BUN (9-20) mg/dL Glucose (74-99) mg/dL POC Glucose (mg/dL) 171 H 164 H 181 H (75-99) mg/dL 09/03/19 09/03/19 09/03/19 Range/Units 05:37 05:59 05:59 RBC 2.23 L (4.30-5.90) m/uL Hgb 6.7 L* (13.0-17.5) gm/dL Hct 21.7 L (39.0-53.0) % MCHC 30.9 L (31.0-37.0) g/dL Sodium 134 L (137-145) mmol/L BUN 37 H (9-20) mg/dL Glucose 119 H (74-99) mg/dL POC Glucose (mg/dL) 135 H (75-99) mg/dL 09/03/19 Range/Units 06:50 RBC (4.30-5.90) m/uL Hgb (13.0-17.5) gm/dL Hct (39.0-53.0) % MCHC (31.0-37.0) g/dL Sodium (137-145) mmol/L BUN (9-20) mg/dL Glucose (74-99) mg/dL POC Glucose (mg/dL) 144 H (75-99) mg/dL - Imaging and Cardiology Chest x-ray: report reviewed, image reviewed Assessment and Plan Assessment: 1. Triple-vessel coronary artery disease with totally occluded collateralized right coronary artery, status post three-vessel CABG 2. Overall preserved left ventricular function 3. Mild aortic valve stenosis 4. History of hypertension 5. Hyperlipidemia 6. Myocardial infarction with prior stenting to the circumflex coronary artery in 2010 7. Type 2 diabetes with a preoperative hemoglobin A1c 8.9% 8. Current tobacco dependence 9. Mild COPD with preoperative FEV1 63% of predicted value 10. Obesity 11. Umbilical and epigastric hernia 12. Family history of premature coronary artery disease 13. Postoperative acute blood loss anemia Plan: 1. Continue aspirin, statin, Plavix, and beta kevin. Will increase beta kevin therapy as tolerated. 2. Continue oral Cardizem for radial artery spasm prophylaxis. DO NOT discontinue without discussing with cardiac surgery please. 3. Encourage use of incentive spirometry, use 10 times every hour while awake. Bronchodilators per pulmonology management. 4. Increase activity as tolerated, ambulate as tolerated. PT/OT/cardiac rehab following. 5. Continue to monitor daily labs and x-rays. Electro replacement per protocol. No transfusion at this time, continue ferrous sulfate. 6. Pain control with current medication regimen. Discontinue [place]. 7. Insulin/diabetic management per primary care service. 8. Remove atrial epicardial pacemaker wires today. Bedrest for 1 hour post pacemaker wire removal. 9. No diuresis today. 10. Discharge planning in progress. Anticipate discharge to home with home care in the next 24 hours. 11. First postoperative shower today. 12. More recommendations to follow based on patient's clinical course. Time with Patient: Greater than 30
[2019-09-03] MEDS: SODIUM FERRIC GLUCONAT-SUCROSE 125 MG in SODIUM CHLORIDE 0.9% 100 ML IVPB SCH (10:53)
[2019-09-03 11:56] LABS: Glucose,Whole Blood 144 mg/dL (75-99)
--- NOTE | 2019-09-03 13:42 | P.PN ---
Subjective Progress Note Date: 09/03/19 Principal diagnosis: Acute exacerbation of systolic dysfunction and congestive heart failure This is a 63-year-old white male with history of multiple medical problems including hypertension, type 2 diabetes, previous CA in 2010, and previous stenting of the circumflex. Patient was recently discovered to have triple- vessel coronary artery disease with preserved LV function. Mild aortic stenosis. He has baseline FEV1 of 63%. And he has history of a large umbilical hernia. Patient was seen by thoracic surgery on consultation, and yesterday he underwent coronary artery bypass grafting using the left internal mammary artery to the left anterior descending artery, left radial artery from the aorta to the obtuse marginal artery, reverse saphenous vein graft from the aorta to the posterior descending artery, postoperatively, patient was on mechanical ventilation, and I was asked to see him on consultation. I reviewed his chest x-ray, I reviewed his labs, and his ventilator settings were adjusted according to the ABG. 3 hours later the patient was placed on CPAP, and I was notified about his CPAP ABG, recommended extubating the patient over the phone. Patient did extremely well, tolerated the extubation well, and I'm seeing him today off mechanical ventilation, patient is doing extremely well. Denies any cough no wheezing no shortness of breath, feels mostly generally weak Reevaluated today on 08/31/2019, patient remains in the ICU, his postoperative day #2. Patient is sitting in a recliner, in no form of distress. Has some surgical type pain, denies any shortness of breath, still doing poorly with incentive spirometry. Chest x-ray showed mostly bibasilar atelectasis which is expected. Overall the patient is doing great, he is not requiring any inotropes or any pressors. Patient is already ambulating in the hallway earlier today. Hemoglobin today is 7.7. Chest x-ray again showed small bilateral effusions and postoperative atelectasis, expected in patients post surgery/CABG Reevaluated today on 09/02/2019, patient is now on selective, he is postoperative day #4. Sitting in a recliner, denies any shortness of breath cough or wheezing. Still doing poorly with incentive spirometry, but improving. His chest tube was removed today. And he is quite happy about this. Chest x-ray is basically unremarkable, small bilateral pleural effusions noted. On 09/03/2019 patient seen in follow-up on selective care unit, this is postoperative day 5, status post coronary artery bypass grafting surgery. Doing very well, he is on room air, he is ambulating in the hallway, unassisted, tolerating activity very well, denies any distress, no shortness of breath, no complaints of pain, today's chest x-ray was reviewed showing some prominence of the pulmonary vasculature, and patient is receiving IV Lasix. Lung sounds are clear, patient is working on incentive spirometer, his oxygenation is stable. His labs have been reviewed, showing white blood cell count of 8.8, hemoglobin of 6.7 Objective - Vital Signs Vital signs: Vital Signs Temp 98.1 F 09/03/19 11:47 Pulse 81 09/03/19 11:47 Resp 20 09/03/19 11:47 BP 108/58 09/03/19 11:47 Pulse Ox 92 L 09/03/19 11:47 Intake & Output 09/02/19 09/03/19 09/03/19 18:59 06:59 18:59 Intake Total 200 360 Output Total 890 Balance -690 360 Weight 97.4 kg 97.4 kg Intake: Oral 200 360 Output: Chest Tube Drainage 40 ct lt pleural 40 Urine 850 Other: Voiding Method Toilet Toilet # Voids 1 0 ABP, PAP, CO, CI - Last Documented Arterial Blood Pressure 128/49 Pulmonary Artery Pressure 22/11 Cardiac Output 7.6 Cardiac Index 3.8 - Exam GENERAL EXAM: Alert, very pleasant, 63-year-old white male, on room air, with pulse ox of 92-96%, comfortable in no apparent distress. HEAD: Normocephalic/atraumatic. EYES: Normal reaction of pupils, equal size. Conjunctiva pink, sclera white. NOSE: Clear with pink turbinates. THROAT: No erythema or exudates. NECK: No masses, no JVD, no thyroid enlargement, no adenopathy. CHEST: No chest wall deformity. Symmetrical expansion. Midsternal incision is clean dry and intact, chest tube sites are clean dry and intact, covered with dressings LUNGS: Equal air entry with no crackles, wheeze, rhonchi or dullness. CVS: Regular rate and rhythm, normal S1 and S2, no gallops, no murmurs, no rubs ABDOMEN: Soft, nontender. No hepatosplenomegaly, normal bowel sounds, no guarding or rigidity. EXTREMITIES: No clubbing, no edema, no cyanosis, 2+ pulses and upper and lower extremities. MUSCULOSKELETAL: Muscle strength and tone normal. SPINE: No scoliosis or deformity SKIN: No rashes CENTRAL NERVOUS SYSTEM: Alert and oriented -3. No focal deficits, tone is normal in all 4 extremities. PSYCHIATRIC: Alert and oriented -3. Appropriate affect. Intact judgment and insight. - Labs CBC & Chem 7: 09/03/19 05:59 09/03/19 05:59 Labs: Abnormal Lab Results - Last 24 Hours (Table) 09/02/19 09/02/19 09/03/19 Range/Units 17:03 20:14 05:37 RBC (4.30-5.90) m/uL Hgb (13.0-17.5) gm/dL Hct (39.0-53.0) % MCHC (31.0-37.0) g/dL Sodium (137-145) mmol/L BUN (9-20) mg/dL Glucose (74-99) mg/dL POC Glucose (mg/dL) 164 H 181 H 135 H (75-99) mg/dL 09/03/19 09/03/19 09/03/19 Range/Units 05:59 05:59 06:50 RBC 2.23 L (4.30-5.90) m/uL Hgb 6.7 L* (13.0-17.5) gm/dL Hct 21.7 L (39.0-53.0) % MCHC 30.9 L (31.0-37.0) g/dL Sodium 134 L (137-145) mmol/L BUN 37 H (9-20) mg/dL Glucose 119 H (74-99) mg/dL POC Glucose (mg/dL) 144 H (75-99) mg/dL 09/03/19 Range/Units 11:51 RBC (4.30-5.90) m/uL Hgb (13.0-17.5) gm/dL Hct (39.0-53.0) % MCHC (31.0-37.0) g/dL Sodium (137-145) mmol/L BUN (9-20) mg/dL Glucose (74-99) mg/dL POC Glucose (mg/dL) 144 H (75-99) mg/dL Assessment and Plan Plan: Assessment: #1. Coronary artery disease, status post triple-vessel artery bypass grafting, postoperative day #5 #2. History of mild COPD, asymptomatic #3. Type 2 diabetes mellitus without complications #4. Hypertension #5. Dyslipidemia #6. No nuchal hernia #7. Postoperative atelectasis and small pleural effusions, and expected outcome of coronary artery bypass grafting surgery Plan: Continue current medical treatment, encouraged incentive spirometry use, today's chest x-ray has been reviewed showing pulmonary vessel congestion, fluid overload, patient has been started on IV diuretics, patient is on room air, tolerating ambulation, using his incentive spirometer, anticipate discharge home in next 24 hours if he remains stable and continues to improve I performed a history & physical examination of the patient and discussed their management with my nurse practitioner, Lucina Prieto. I reviewed the nurse practitioner's note and agree with the documented findings and plan of care. Lung sounds are positive for diminished breath sounds. The findings and the im pression was discussed with the patient. I attest to the documentation by the nurse practitioner. Time with Patient: Less than 30
--- NOTE | 2019-09-03 14:47 | P.PN ---
Subjective Progress Note Date: 09/03/19 This is a 63-year-old male patient of Dr. Reyes with past medical history of diabetes mellitus type 2, hypertension, hyperlipidemia, history of [place] in 2011 status post stent of the circumflex. Patient found to have triple- vessel coronary artery disease with totally occluded collateralized right coronary artery, overall preserved left ventricular function, mild aortic stenosis, mild COPD with preoperative FEV1 63% of predicted, obesity, umbilical and epigastric hernia. Patient was brought into the hospital under the care of Dr. Luna status post triple coronary artery bypass grafting using the left internal mammary artery to the left anterior descending artery, left radial artery from the aorta to the obtuse marginal artery, reverse saphenous vein graft from the aorta to the posterior descending artery, postoperative day #1. Patient was successfully extubated last evening. Patient states that he walked in the hallway to the nurse's desk and back. He is complaining of feeling tired fatigue and sore in general. He has a little pain with deep breathing. He is using incentive spirometry at 800 mL. monitor technician is a normal sinus rhythm. Patient is currently on insulin drip and blood sugars are running between 139 148. Patient is known to have some subcutaneous emphysema in the upper chest area. Chest tubes, Acosta catheter, pacer wires in place. 08/31: Mediastinal and left pleural chest tubes, right internal jugular Cordis have been removed this morning. Acosta catheter is removed and patient able to void on his own. monitor technician is a sinus rhythm. Patient has been hemodynamically stable. He has been able to ambulate in the hallway. Patient is scheduled for transfer to the cardiac stepdown unit. Patient states he only ate a few bites of breakfast. He is on insulin drip which will be transitioned to his oral dose of Januvia and metformin. Levaquin added at 18 units daily and insulin drip may be discontinued. His outpatient hemoglobin A1c was 8.9. Discharge plan is home with home care on Tuesday. 09/01: Patient is now seen on the selective care unit. Patient denies having any chest pain. He is complaining of shortness of breath with ambulation. He is reaching 750 on incentive spirometry. Patient remains with [address] Patient states he is urinating without difficulty. He is complaining of constipation but does not want any medication for this. Patient is complaining of lower extremity edema. Patient has been afebrile, heart rate 96, blood pressure 120/55, pulse ox 96% on 4 L nasal cannula. Patient remains in a normal sinus rhythm. WBC 9.8, hemoglobin 7.6, platelets of 137. Sodium 133, potassium 4.5, chloride 102, CO2 21, BUN 32 and creatinine 1.07. Her blood sugars are running between 189 and 219. Patient has been resumed back on Januvia, metformin, Levemir started. NovoLog scale. NovoLog scheduled 5 units with meals will be added. Iron studies ordered. Patient denies any blood in the stools, 09/02: Patient is seen today sitting up in a recliner. He has been complaining of constipation but has been able to have a bowel movement this morning. Iron studies show low iron and Ferrlecit for 2 doses will be added. He is complaining of difficulty sleeping and melatonin increased to 10 mg. Blood sug ars are improved at 143-180. Patient is not currently eating very much monitor technician is in normal sinus rhythm. Left pleural chest tube remains in place. Anticipate discharge home tomorrow. 09/03: The patient is status post 2 infusions of Ferrlecit. Hemoglobin today is at 6.7 with plan to monitor. Patient will be ordered for Lasix 20 mg IV 2 doses today and then discontinue. Patient continues to state that he is not sleeping well. We have started him on melatonin. Patient has been afebrile, heart rate 81, blood pressure 108/58, pulse ox 92% on room air. Sodium 134, BUN 37 creatinine 0.99. Plan is to monitor overnight, recheck blood work in the morning and possible discharge tomorrow. Blood sugars are 119-181. Review of Systems Constitutional: Reports fatigue, denies weakness, reports decreased appetite, Denies chills, Denies fever, Denies lethargy, Denies malaise Eyes: denies blurred vision, denies pain Ears, nose, mouth and throat: Denies dysphagia, Denies headache, Denies nasal congestion, Denies nasal discharge, Denies sore throat, Denies vertigo Cardiovascular: Denies chest pain, Denies decreased exercise tolerance, Denies dyspnea on exertion, Denies lightheadedness, Denies shortness of breath, Denies syncope Respiratory: Denies cough, Denies cough with sputum, Denies excessive sputum, Denies hemoptysis, Denies home oxygen, Denies respiratory infections Gastrointestinal: Denies abdominal pain, Denies diarrhea, Denies loss of appetite, Denies nausea, Denies vomiting, reports constipation Genitourinary: Denies dysuria, Denies urinary frequency, Denies urinary retenti on Musculoskeletal: Denies frequent falls, Denies gait dysfunction, Denies muscle weakness, Denies myalgias Integumentary: Denies pruritus, Denies rash, reports lower extremity edema Neurological: Denies change in mentation, Denies change in speech, Denies numbness, Denies seizures, Denies weakness Psychiatric: Denies anxiety, Denies depression Endocrine: Denies fatigue, Denies weight change, denies abnormal blood sugars Objective - Vital Signs Vital signs: Vital Signs Temp 98.1 F 09/03/19 11:47 Pulse 81 09/03/19 11:47 Resp 20 09/03/19 11:47 BP 108/58 09/03/19 11:47 Pulse Ox 92 L 09/03/19 11:47 Intake & Output 09/02/19 09/03/19 09/03/19 18:59 06:59 18:59 Intake Total 200 240 Output Total 890 Balance -690 240 Weight 97.4 kg 97.4 kg Intake: Oral 200 240 Output: Chest Tube Drainage 40 ct lt pleural 40 Urine 850 Other: Voiding Method Toilet Toilet # Voids 1 ABP, PAP, CO, CI - Last Documented Arterial Blood Pressure 128/49 Pulmonary Artery Pressure 22/11 Cardiac Output 7.6 Cardiac Index 3.8 - Exam Gen: This is a 63-year-old male. He is sitting up in chair on the Cardiac Stepdown Unit and appears to be comfortable and in no acute distress. Daughter is at bedside. HEENT: Head is atraumatic, normocephalic. Pupils equal, round. Sclerae is anicteric. NECK: Supple. No JVD. No lymphadenopathy. No thyromegaly. LUNGS: Diminished bilaterally but otherwise clear to auscultation. No wheezes or rhonchi. No intercostal retractions. HEART: Regular rate and rhythm. No murmur. Dressing in place to midsternum with no significant drainage or bleeding. ABDOMEN: Soft. Bowel sounds are present. No masses. No tenderness. EXTREMITIES: Mild pedal edema bilaterally. No calf tenderness. NEUROLOGICAL: Patient is awake, alert and oriented x3. Cranial nerves 2 through 12 are grossly intact. - Labs CBC & Chem 7: 09/03/19 05:59 09/03/19 05:59 Labs: Abnormal Lab Results - Last 24 Hours (Table) 09/02/19 09/02/19 09/03/19 Range/Units 17:03 20:14 05:37 RBC (4.30-5.90) m/uL Hgb (13.0-17.5) gm/dL Hct (39.0-53.0) % MCHC (31.0-37.0) g/dL Sodium (137-145) mmol/L BUN (9-20) mg/dL Glucose (74-99) mg/dL POC Glucose (mg/dL) 164 H 181 H 135 H (75-99) mg/dL 09/03/19 09/03/19 09/03/19 Range/Units 05:59 05:59 06:50 RBC 2.23 L (4.30-5.90) m/uL Hgb 6.7 L* (13.0-17.5) gm/dL Hct 21.7 L (39.0-53.0) % MCHC 30.9 L (31.0-37.0) g/dL Sodium 134 L (137-145) mmol/L BUN 37 H (9-20) mg/dL Glucose 119 H (74-99) mg/dL POC Glucose (mg/dL) 144 H (75-99) mg/dL 09/03/19 Range/Units 11:51 RBC (4.30-5.90) m/uL Hgb (13.0-17.5) gm/dL Hct (39.0-53.0) % MCHC (31.0-37.0) g/dL Sodium (137-145) mmol/L BUN (9-20) mg/dL Glucose (74-99) mg/dL POC Glucose (mg/dL) 144 H (75-99) mg/dL Assessment and Plan Plan: 1. Triple-vessel coronary artery disease status post coronary artery bypass grafting, postoperative day #4 Continue current pain management, increase acti vity, incentive spirometry to reduce incidence of atelectasis and hospital- acquired pneumonia. Continue aspirin, Lipitor, Plavix, Lopressor, Cardizem, heparin subcu. 2. Diabetes mellitus type 2. Patient is currently on insulin drip and will be transitioned to scheduled Levemir 18 units daily, NovoLog scale, Janumet and metformin. A1c 8.9. Add NovoLog 5 units with meals. 3. Hypertension. Continue Lopressor. 4. Hyperlipidemia. Continue statin. 5. History of coronary artery disease with previous stenting of the circumflex.. 6. Mild COPD, stable without exacerbation. 7. GI prophylaxis. Protonix. 8. DVT prophylaxis. Heparin subcu. 9. Insomnia melatonin increased to 10 mg. 10. Acute blood loss anemia, expected with surgery. Patient is status post infusion of 2 doses of Ferrlecit. Monitor hemoglobin. No plan for transfusion at this point. Discharge plan: Home with home care on Tuesday Impression and plan of care have been directed as dictated by the signing phys icicolleen. Rosalia Burns nurse practitioner acting as scribe for signing physician.
--- NOTE | 2019-09-03 15:22 | P.PN ---
Subjective Progress Note Date: 09/03/19 This is a 63-year-old white male with history of multiple medical problems including hypertension, type 2 diabetes, previous [place] in 2011, and previous stenting of the circumflex. He is status post coronary bypass grafting surgery using a AARON to the LAD, left radial artery from the aorta to the obtuse mar ginal artery, reverse saphenous vein graft from the aorta to the posterior descending artery, being followed on the telemetry unit this morning, doing very well overall. Ambulating in the hallway without any difficulty. He is currently on IV Lasix. Hemoglobin today is down to 6.7. He is working on his incentive spirometry. Blood pressure 108/50 with a heart rate in the 80s temperature 98.1 Objective - Vital Signs Vital signs: Vital Signs Temp 98.1 F 09/03/19 11:47 Pulse 81 09/03/19 14:12 Resp 20 09/03/19 14:12 BP 108/58 09/03/19 11:47 Pulse Ox 92 L 09/03/19 11:47 Intake & Output 09/02/19 09/03/19 09/03/19 18:59 06:59 18:59 Intake Total 200 360 Output Total 890 Balance -690 360 Weight 97.4 kg 97.4 kg Intake: Oral 200 360 Output: Chest Tube Drainage 40 ct lt pleural 40 Urine 850 Other: Voiding Method Toilet Toilet # Voids 1 0 ABP, PAP, CO, CI - Last Documented Arterial Blood Pressure 128/49 Pulmonary Artery Pressure 22/11 Cardiac Output 7.6 Cardiac Index 3.8 - Exam GENERAL EXAM: Alert, very pleasant, 63-year-old white male, comfortable in no apparent distress at the time of my examination. HEAD: Normocephalic/atraumatic. EYES: Normal reaction of pupils, equal size. Conjunctiva pink, sclera white. NOSE: Clear with pink turbinates. THROAT: No erythema or exudates. NECK: No masses, no JVD, no thyroid enlargement, no adenopathy. CHEST: No chest wall deformity. Symmetrical expansion. Midsternal incision is clean dry and intact, chest tube sites are clean dry and intact, covered with dressings LUNGS: Equal air entry with no crackles, wheeze, rhonchi or dullness. CVS: Regular rate and rhythm, normal S1 and S2, no gallops, no murmurs, no rubs ABDOMEN: Soft, nontender. No hepatosplenomegaly, normal bowel sounds, no guarding or rigidity. EXTREMITIES: No clubbing, no edema, no cyanosis, 2+ pulses and upper and lower extremities. MUSCULOSKELETAL: Muscle strength and tone normal. SPINE: No scoliosis or deformity SKIN: No rashes CENTRAL NERVOUS SYSTEM: Alert and oriented -3. No focal deficits, tone is normal in all 4 extremities. PSYCHIATRIC: Alert and oriented -3. Appropriate affect. Intact judgment and insight. - Labs CBC & Chem 7: 09/03/19 05:59 09/03/19 05:59 Labs: Abnormal Lab Results - Last 24 Hours (Table) 09/02/19 09/02/19 09/03/19 Range/Units 17:03 20:14 05:37 RBC (4.30-5.90) m/uL Hgb (13.0-17.5) gm/dL Hct (39.0-53.0) % MCHC (31.0-37.0) g/dL Sodium (137-145) mmol/L BUN (9-20) mg/dL Glucose (74-99) mg/dL POC Glucose (mg/dL) 164 H 181 H 135 H (75-99) mg/dL 09/03/19 09/03/19 09/03/19 Range/Units 05:59 05:59 06:50 RBC 2.23 L (4.30-5.90) m/uL Hgb 6.7 L* (13.0-17.5) gm/dL Hct 21.7 L (39.0-53.0) % MCHC 30.9 L (31.0-37.0) g/dL Sodium 134 L (137-145) mmol/L BUN 37 H (9-20) mg/dL Glucose 119 H (74-99) mg/dL POC Glucose (mg/dL) 144 H (75-99) mg/dL 09/03/19 Range/Units 11:51 RBC (4.30-5.90) m/uL Hgb (13.0-17.5) gm/dL Hct (39.0-53.0) % MCHC (31.0-37.0) g/dL Sodium (137-145) mmol/L BUN (9-20) mg/dL Glucose (74-99) mg/dL POC Glucose (mg/dL) 144 H (75-99) mg/dL Assessment and Plan Plan: Assessment and plan #1. Coronary artery disease, status post triple-vessel artery bypass grafting, postoperative day #5 #2. History of mild COPD, asymptomatic #3. Type 2 diabetes mellitus without complications #4. Hypertension #5. Dyslipidemia Plan From cardiology's perspective, we'll recommend to continue current medical treatment. Possible discharge home within the next 24-48 hours. DNP note has been reviewed, I agree with a documented findings and plan of care. Patient was seen and examined.
[2019-09-03] MEDS: FUROSEMIDE 10 MG/ML 2 ML VIAL IV SCH ×2 (17:07→17:44)
[2019-09-03 17:25] LABS: Glucose,Whole Blood 108 mg/dL (75-99)
[2019-09-03] MEDS: ACETAMINOPHEN TAB 500 MG TAB PO PRN (19:53)
[2019-09-03] MEDS: MELATONIN 5 MG TABLET PO SCH (19:53)
[2019-09-03 20:15] LABS: Glucose,Whole Blood 143 mg/dL (75-99)
[2019-09-03] MEDS: SENNOSIDES-DOCUSATE SODIUM 1 EACH TAB PO SCH (21:34)
[2019-09-04] MEDS: ACETAMINOPHEN TAB 500 MG TAB PO PRN ×2 (01:35→06:53)
[2019-09-04 02:07] LABS: Glucose,Whole Blood 162 mg/dL (75-99)
[2019-09-04 06:25] LABS: Glucose,Whole Blood 157 mg/dL (75-99)
[2019-09-04] MEDS: INSULIN ASPART (NovoLOG) 100 UNIT/ML VIAL SQ SCH ×5 (06:32→13:05)
[2019-09-04] MEDS: HEPARIN SODIUM,PORCINE 5,000 UNIT/ML 1 ML VIAL SQ SCH ×2 (06:33→08:57)
[2019-09-04] MEDS: ASCORBIC ACID 500 MG TAB PO SCH (06:41)
[2019-09-04] MEDS: INSULIN DETEMIR (LEVEMIR) 100 UNIT/ML SYR SQ SCH (06:41)
[2019-09-04] MEDS: PANTOPRAZOLE 40 MG TABLET PO SCH (06:42)
[2019-09-04] MEDS: metFORMIN 500 MG TAB PO SCH (06:42)
[2019-09-04] MEDS: IPRATROPIUM-ALBUTEROL 3 ML NEB INHALATION SCH ×2 (07:03→12:10)
[2019-09-04] MEDS ORDERED: FERROUS SULFATE 325 MG TAB PO SCH (07:30)
--- NOTE | 2019-09-04 08:36 | XR ---
EXAMINATION TYPE: XR chest 1V portable DATE OF EXAM: 09/04/2019 COMPARISON: 09/03/2019 HISTORY: Post CABG. TECHNIQUE: Single frontal view of the chest is obtained. FINDINGS: Median sternotomy wires and mediastinal clips are again demonstrated. Cardiomediastinal si lhouette is stable but enlarged. Lateral cardiac opacity has increased in the interim. Remainder the lungs are well aerated. No acute osseous pathology. IMPRESSION: Increasing retrocardiac opacity that may represent a small pleural effusion and atelecta sis or less likely pneumonia in the appropriate clinical setting.
[2019-09-04 08:56] VITALS: TEMP 98.3
[2019-09-04] MEDS: ASPIRIN 325 MG TAB PO SCH (08:57)
[2019-09-04] MEDS: LINAGLIPTIN 5 MG TABLET PO SCH (08:57)
[2019-09-04] MEDS: METOPROLOL TARTRATE 50 MG TAB PO SCH (08:57)
[2019-09-04] MEDS: DILTIAZEM CD 120 MG CAP.ER.24H PO SCH (08:57)
[2019-09-04] MEDS: CLOPIDOGREL 75 MG TAB PO SCH (08:57)
[2019-09-04] MEDS: ATORVASTATIN 40 MG TAB PO SCH (08:57)
[2019-09-04 09:04] LABS: Anisocytosis Slight; HCT 23.2 % (39.0-53.0); HGB 7.2 gm/dL (13.0-17.5); Hypochromasia Slight; MCH 30.3 pg (25.0-35.0); MCHC 30.9 g/dL (31.0-37.0); Macrocytosis Slight; Mean Platelet Volume 10.4; Platelet Count 226 k/uL (150-450); Poikilocytosis Slight; RBC 2.37 m/uL (4.30-5.90); WBC 10.4 k/uL (3.8-10.6)
[2019-09-04 09:20] LABS: African American GFR (CKD) >90 (>60 ml/min/1.73 sqM); Anion Gap 6 mmol/L; Blood Urea Nitrogen 32 mg/dL (9-20); Calcium 8.6 mg/dL (8.4-10.2); Carbon Dioxide 26 mmol/L (22-30); Chloride 103 mmol/L (98-107); Glucose 171 mg/dL (74-99); Non-African American GFR(CKD) 85 (>60 ml/min/1.73 sqM); Potassium 4.6 mmol/L (3.5-5.1); Sodium 135 mmol/L (137-145)
--- NOTE | 2019-09-04 11:49 | P.PN ---
Subjective Progress Note Date: 09/04/19 Principal diagnosis: Acute exacerbation of systolic dysfunction and congestive heart failure This is a 63-year-old white male with history of multiple medical problems including hypertension, type 2 diabetes, previous [place] in 2010, and previous stenting of the circumflex. Patient was recently discovered to have triple- vessel coronary artery disease with preserved LV function. Mild aortic stenosis. He has baseline FEV1 of 63%. And he has history of a large umbilical hernia. Patient was seen by thoracic surgery on consultation, and yesterday he underwent coronary artery bypass grafting using the left internal mammary artery to the left anterior descending artery, left radial artery from the aorta to the obtuse marginal artery, reverse saphenous vein graft from the aorta to the posterior descending artery, postoperatively, patient was on mechanical ventilation, and I was asked to see him on consultation. I reviewed his chest x-ray, I reviewed his labs, and his ventilator settings were adjusted according to the ABG. 3 hours later the patient was placed on CPAP, and I was notified about his CPAP ABG, recommended extubating the patient over the phone. Patient did extremely well, tolerated the extubation well, and I'm seeing him today off mechanical ventilation, patient is doing extremely well. Denies any cough no wheezing no shortness of breath, feels mostly generally weak Reevaluated today on 08/31/2019, patient remains in the ICU, his postoperative day #2. Patient is sitting in a recliner, in no form of distress. Has some surgical type pain, denies any shortness of breath, still doing poorly with incentive spirometry. Chest x-ray showed mostly bibasilar atelectasis which is expected. Overall the patient is doing great, he is not requiring any inotropes or any pressors. Patient is already ambulating in the hallway earlier today. Hemoglobin today is 7.7. Chest x-ray again showed small bilateral effusions and postoperative atelectasis, expected in patients post surgery/CABG Reevaluated today on 09/02/2019, patient is now on selective, he is postoperative day #4. Sitting in a recliner, denies any shortness of breath cough or wheezing. Still doing poorly with incentive spirometry, but improving. His chest tube was removed today. And he is quite happy about this. Chest x-ray is basically unremarkable, small bilateral pleural effusions noted. On 09/03/2019 patient seen in follow-up on selective care unit, this is postoperative day 5, status post coronary artery bypass grafting surgery. Doing very well, he is on room air, he is ambulating in the hallway, unassisted, tolerating activity very well, denies any distress, no shortness of breath, no complaints of pain, today's chest x-ray was reviewed showing some prominence of the pulmonary vasculature, and patient is receiving IV Lasix. Lung sounds are clear, patient is working on incentive spirometer, his oxygenation is stable. His labs have been reviewed, showing white blood cell count of 8.8, hemoglobin of 6.7 On 09/04/2019 patient seen in follow-up on selective care unit. Patient is doing quite well, he is awake and alert and oriented 3, room air pulse ox is 9 6%, hemodynamically stable, no acute events overnight, today's chest x-ray has been reviewed showing increasing retrocardiac opacity likely represents small pleural effusion and atelectasis, patient has received a few doses of IV diuretics, he is mildly negative fluid balance. No complaints of shortness of breath, lung sounds reveal minimal crackles at the left base. No rhonchi or wheezing, today's labs have been reviewed, showing white blood cell, 10.4, hemoglobin of 7.2, sodium is 135, the rest of electrolytes were within normal limits, BUN is 22 creatinine 0.96. Objective - Vital Signs Vital signs: Vital Signs Temp 98.3 F 09/04/19 08:00 Pulse 92 09/04/19 08:00 Resp 18 09/04/19 08:00 BP 118/56 09/04/19 08:00 Pulse Ox 96 09/04/19 08:00 Intake & Output 09/03/19 09/04/19 09/04/19 18:59 06:59 18:59 Intake Total 480 120 Output Total 400 Balance 80 120 Weight 97.4 kg 97.2 kg Intake: Oral 480 120 Output: Urine 400 Other: Voiding Method Toilet Toilet Toilet # Voids 0 ABP, PAP, CO, CI - Last Documented Arterial Blood Pressure 128/49 Pulmonary Artery Pressure 22/11 Cardiac Output 7.6 Cardiac Index 3.8 - Exam GENERAL EXAM: Alert, very pleasant, 63-year-old white male, on room air, with pulse ox of 92-96%, comfortable in no apparent distress. HEAD: Normocephalic/atraumatic. EYES: Normal reaction of pupils, equal size. Conjunctiva pink, sclera white. NOSE: Clear with pink turbinates. THROAT: No erythema or exudates. NECK: No masses, no JVD, no thyroid enlargement, no adenopathy. CHEST: No chest wall deformity. Symmetrical expansion. Midsternal incision is clean dry and intact, chest tube sites are clean dry and intact, covered with dressings LUNGS: Equal air entry with no crackles, wheeze, rhonchi or dullness. CVS: Regular rate and rhythm, normal S1 and S2, no gallops, no murmurs, no rubs ABDOMEN: Soft, nontender. No hepatosplenomegaly, normal bowel sounds, no gu arding or rigidity. EXTREMITIES: No clubbing, no edema, no cyanosis, 2+ pulses and upper and lower e xtremities. MUSCULOSKELETAL: Muscle strength and tone normal. SPINE: No scoliosis or deformity SKIN: No rashes CENTRAL NERVOUS SYSTEM: Alert and oriented -3. No focal deficits, tone is normal in all 4 extremities. PSYCHIATRIC: Alert and oriented -3. Appropriate affect. Intact judgment and insight. - Labs CBC & Chem 7: 09/04/19 07:54 09/04/19 07:54 Labs: Abnormal Lab Results - Last 24 Hours (Table) 09/03/19 09/03/19 09/03/19 Range/Units 11:51 17:23 20:14 RBC (4.30-5.90) m/uL Hgb (13.0-17.5) gm/dL Hct (39.0-53.0) % MCHC (31.0-37.0) g/dL RDW (11.5-15.5) % Sodium (137-145) mmol/L BUN (9-20) mg/dL Glucose (74-99) mg/dL POC Glucose (mg/dL) 144 H 108 H 143 H (75-99) mg/dL 09/04/19 09/04/19 09/04/19 Range/Units 02:06 06:24 07:54 RBC 2.37 L (4.30-5.90) m/uL Hgb 7.2 L (13.0-17.5) gm/dL Hct 23.2 L (39.0-53.0) % MCHC 30.9 L (31.0-37.0) g/dL RDW 17.0 H (11.5-15.5) % Sodium (137-145) mmol/L BUN (9-20) mg/dL Glucose (74-99) mg/dL POC Glucose (mg/dL) 162 H 157 H (75-99) mg/dL 09/04/19 Range/Units 07:54 RBC (4.30-5.90) m/uL Hgb (13.0-17.5) gm/dL Hct (39.0-53.0) % MCHC (31.0-37.0) g/dL RDW (11.5-15.5) % Sodium 135 L (137-145) mmol/L BUN 32 H (9-20) mg/dL Glucose 171 H (74-99) mg/dL POC Glucose (mg/dL) (75-99) mg/dL Assessment and Plan Plan: Assessment: #1. Coronary artery disease, status post triple-vessel artery bypass grafting, postoperative day #6 #2. History of mild COPD, asymptomatic #3. Type 2 diabetes mellitus without complications #4. Hypertension #5. Dyslipidemia #6. No nuchal hernia #7. Postoperative atelectasis and small pleural effusions, and expected outcome of coronary artery bypass grafting surgery Plan: Patient is doing well, has been diuresed, no complaints of shortness of breath, no complaints of pain, vital signs are stable, no acute events overnight, today's chest x-ray has been reviewed showing possibility of small pleural eff usion on the left, and adjacent atelectasis, clinically patient is stable. Tolerating ambulation, working on incentive spirometer, patient is being discharged home today, the patient will follow-up with Dr. Mayo in the office on 09/24/2019 at 9:15 in the morning. I performed a history & physical examination of the patient and discussed their management with my nurse practitioner, Lucina Prieto. I reviewed the nurse practitioner's note and agree with the documented findings and plan of care. Lung sounds are positive for diminished breath sounds. The findings and the impression was discussed with the patient. I attest to the documentation by the nurse practitioner. Time with Patient: Less than 30
[2019-09-04 11:55] VITALS: BP 117/58; PULSE 85; RESP 20
[2019-09-04 13:05] LABS: Glucose,Whole Blood 134 mg/dL (75-99)
--- NOTE | 2019-09-04 14:00 | P.PN ---
Subjective Progress Note Date: 09/04/19 This is a 63-year-old male patient of Dr. Reyes with past medical history of diabetes mellitus type 2, hypertension, hyperlipidemia, history of [place] in 2011 status post stent of the circumflex. Patient found to have triple- vessel coronary artery disease with totally occluded collateralized right coronary artery, overall preserved left ventricular function, mild aortic stenosis, mild COPD with preoperative FEV1 63% of predicted, obesity, umbilical and epigastric hernia. Patient was brought into the hospital under the care of Dr. Luna status post triple coronary artery bypass grafting using the left internal mammary artery to the left anterior descending artery, left radial artery from the aorta to the obtuse marginal artery, reverse saphenous vein graft from the aorta to the posterior descending artery, postoperative day #1. Patient was successfully extubated last evening. Patient states that he walked in the hallway to the nurse's desk and back. He is complaining of feeling tired fatigue and sore in general. He has a little pain with deep breathing. He is using incentive spirometry at 800 mL. 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 Patient is currently on insulin drip and blood sugars are running between 139 148. Patient is known to have some subcutaneous emphysema in the upper chest area. Chest tubes, Acosta catheter, pacer wires in place. 08/31: Mediastinal and left pleural chest tubes, right internal jugular Cordis have been removed this morning. Acosta catheter is removed and patient able to void on his own. 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 Patient has been hemodynamically stable. He has been able to ambulate in the hallway. Patient is scheduled for transfer to the cardiac stepdown unit. Patient states he only ate a few bites of breakfast. He is on insulin drip which will be transitioned to his oral dose of Januvia and metformin. Levaquin added at 18 units daily and insulin drip may be discontinued. His outpatient hemoglobin A1c was 8.9. Discharge plan is home with home care on Tuesday. 09/01: Patient is now seen on the selective care unit. Patient denies having any chest pain. He is complaining of shortness of breath with ambulation. He is reaching 750 on incentive spirometry. Patient remains with [address] Patient states he is urinating without difficulty. He is complaining of constipation but does not want any medication for this. Patient is complaining of lower extremity edema. Patient has been afebrile, heart rate 96, blood pressure 120/55, pulse ox 96% on 4 L nasal cannula. Patient remains in a normal sinus rhythm. WBC 9.8, hemoglobin 7.6, platelets of 137. Sodium 133, potassium 4.5, chloride 102, CO2 21, BUN 32 and creatinine 1.07. Her blood sugars are running between 189 and 219. Patient has been resumed back on Januvia, metformin, Levemir started. NovoLog scale. NovoLog scheduled 5 units with meals will be added. Iron studies ordered. Patient denies any blood in the stools, 09/02: Patient is seen today sitting up in a recliner. He has been complaining of constipation but has been able to have a bowel movement this morning. Iron studies show low iron and Ferrlecit for 2 doses will be added. He is complaining of difficulty sleeping and melatonin increased to 10 mg. Blood sug ars are improved at 143-180. 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 Left pleural chest tube remains in place. Anticipate discharge home tomorrow. 09/03: The patient is status post 2 infusions of Ferrlecit. Hemoglobin today is at 6.7 with plan to monitor. Patient will be ordered for Lasix 20 mg IV 2 doses today and then discontinue. Patient continues to state that he is not sleeping well. We have started him on melatonin. Patient has been afebrile, heart rate 81, blood pressure 108/58, pulse ox 92% on room air. Sodium 134, BUN 37 creatinine 0.99. Plan is to monitor overnight, recheck blood work in the morning and possible discharge tomorrow. Blood sugars are 119-181. 09/04: A repeat hemoglobin today is at 7.2. Patient is cleared for discharge home today. We are addressing patient's diabetes medications and have change metformin to 1000 mg twice daily, continue Januvia and added and Lantus 18 units at bedtime and NovoLog flex pen 5 units 3 times daily with meals and scale as well. Patient is cleared for discharge and will have follow-up with Dr. Reyes in the outpatient setting. Nursing to make sure the patient has a glucometer at home. Review of Systems Constitutional: Reports fatigue, denies weakness, reports decreased appetite, Denies chills, Denies fever, Denies lethargy, Denies malaise Eyes: denies blurred vision, denies pain Ears, nose, mouth and throat: Denies dysphagia, Denies headache, Denies nasal congestion, Denies nasal discharge, Denies sore throat, Denies vertigo Cardiovascular: Denies chest pain, Denies decreased exercise tolerance, Denies dyspnea on exertion, Denies lightheadedness, Denies shortness of breath, Denies syncope Respiratory: Denies cough, Denies cough with sputum, Denies excessive sputum, Denies hemoptysis, Denies home oxygen, Denies respiratory infections Gastrointestinal: Denies abdominal pain, Denies diarrhea, Denies loss of appetite, Denies nausea, Denies vomiting, reports constipation Genitourinary: Denies dysuria, Denies urinary frequency, Denies urinary retention Musculoskeletal: Denies frequent falls, Denies gait dysfunction, Denies muscle weakness, Denies myalgias Integumentary: Denies pruritus, Denies rash, reports lower extremity edema Neurological: Denies change in mentation, Denies change in speech, Denies numbness, Denies seizures Psychiatric: Denies anxiety, Denies depression Endocrine: Denies fatigue, Denies weight change, denies abnormal blood sugars Objective - Vital Signs Vital signs: Vital Signs Temp 98.3 F 09/04/19 11:54 Pulse 85 09/04/19 11:54 Resp 20 09/04/19 11:54 BP 117/58 09/04/19 11:54 Pulse Ox 95 09/04/19 11:54 Intake & Output 09/03/19 09/04/19 09/04/19 18:59 06:59 18:59 Intake Total 480 120 Output Total 400 Balance 80 120 Weight 97.4 kg 97.2 kg Intake: Oral 480 120 Output: Urine 400 Other: Voiding Method Toilet Toilet Toilet # Voids 0 ABP, PAP, CO, CI - Last Documented Arterial Blood Pressure 128/49 Pulmonary Artery Pressure 22/11 Cardiac Output 7.6 Cardiac Index 3.8 - Exam Gen: This is a 63-year-old male. He is sitting up in chair on the Cardiac Stepdown Unit and appears to be comfortable and in no acute distress. HEENT: Head is atraumatic, normocephalic. Pupils equal, round. Sclerae is anicteric. NECK: Supple. No JVD. No lymphadenopathy. No thyromegaly. LUNGS: Diminished bilaterally but otherwise clear to auscultation. No wheezes or rhonchi. No intercostal retractions. HEART: Regular rate and rhythm. No murmur. Dressing in place to midsternum with no significant drainage or bleeding. ABDOMEN: Soft. Bowel sounds are present. No masses. No tenderness. EXTREMITIES: Mild pedal edema bilaterally. No calf tenderness. NEUROLOGICAL: Patient is awake, alert and oriented x3. Cranial nerves 2 through 12 are grossly intact. - Labs CBC & Chem 7: 09/04/19 07:54 09/04/19 07:54 Labs: Abnormal Lab Results - Last 24 Hours (Table) 09/03/19 09/03/19 09/04/19 Range/Units 17:23 20:14 02:06 RBC (4.30-5.90) m/uL Hgb (13.0-17.5) gm/dL Hct (39.0-53.0) % MCHC (31.0-37.0) g/dL RDW (11.5-15.5) % Sodium (137-145) mmol/L BUN (9-20) mg/dL Glucose (74-99) mg/dL POC Glucose (mg/dL) 108 H 143 H 162 H (75-99) mg/dL 09/04/19 09/04/19 09/04/19 Range/Units 06:24 07:54 07:54 RBC 2.37 L (4.30-5.90) m/uL Hgb 7.2 L (13.0-17.5) gm/dL Hct 23.2 L (39.0-53.0) % MCHC 30.9 L (31.0-37.0) g/dL RDW 17.0 H (11.5-15.5) % Sodium 135 L (137-145) mmol/L BUN 32 H (9-20) mg/dL Glucose 171 H (74-99) mg/dL POC Glucose (mg/dL) 157 H (75-99) mg/dL Assessment and Plan Plan: 1. Triple-vessel coronary artery disease status post coronary artery bypass grafting, postoperative day #6 Continue current pain management, increase activity, incentive spirometry to reduce incidence of atelectasis and hospital- acquired pneumonia. Continue aspirin, Lipitor, Plavix, Lopressor, Cardizem, heparin subcu. 2. Diabetes mellitus type 2. Patient is currently on insulin drip and will be transitioned to scheduled Levemir 18 units daily, NovoLog scale, Janumet and metformin. A1c 8.9. NovoLog 5 units with meals. 3. Hypertension. Continue Lopressor. 4. Hyperlipidemia. Continue statin. 5. History of coronary artery disease with previous stenting of the circumflex.. 6. Mild COPD, stable without exacerbation. 7. GI prophylaxis. Protonix. 8. DVT prophylaxis. Heparin subcu. 9. Insomnia melatonin increased to 10 mg. 10. Acute blood loss anemia, expected with surgery. Patient is status post infusion of 2 doses of Ferrlecit. Hemoglobin stable. Discharge plan: Home with [facility] Impression and plan of care have been directed as dictated by the signing physician. Rosalia Burns nurse practitioner acting as scribe for signing physician.
--- NOTE | 2019-09-04 14:08 | P.DS ---
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 Triple-vessel coronary artery disease with totally occluded collateralized right coronary artery, status post three-vessel CABG 2. Overall preserved left ventricular function with an ejection fraction of 60% 3. Mild aortic valve stenosis 4. History of hypertension 5. Hyperlipidemia 6. Myocardial infarction with prior stenting to the circumflex coronary artery in 2010 7. Type 2 diabetes with a preoperative hemoglobin A1c 8.9% 8. Current tobacco dependence 9. Mild COPD with preoperative FEV1 63% of predicted value 10. Obesity 11. Umbilical and epigastric hernia 12. Family history of premature coronary artery disease 13. Postoperative acute blood loss anemia PRINCIPAL PROCEDURE: 1. Triple-vessel coronary artery bypass grafting using the left internal mammary artery to the left anterior descending coronary artery, left radial artery from the aorta to the obtuse marginal coronary artery, a reverse greater saphenous vein graft from the aorta to the posterior descending coronary artery. 2. Endoscopic harvesting of the left radial artery. 3. Endoscopic harvesting of the left greater saphenous vein from the groin to the mid lower leg level. 4. Intraoperative transesophageal echocardiogram and epi-aortic scanning. 5. Intraoperative graft flow measurements using the Medistim system. HISTORY OF PRESENT ILLNESS: This is a 63-year-old gentleman who is followed by Dr. Reyes on an outpatient basis. He is a past medical history significant for coronary artery disease with prior stenting to his circumflex coronary artery in 2010, myocardial infarction in 2010, hyperlipidemia, hypertension, diabetes mellitus type 2, obesity, umbilical and epigastric hernia, current chronic tobacco dependence and family history of premature coronary artery disease with both his dad and 2 brothers. Recently, he has had complaints of progressive shortness of breath with exertion without any complaints of chest pain. A stress test was completed which showed stress induced ischemia along the inferior wall from the midportion to the apex. Subsequently, for further evaluation he underwent a heart catheterization performed by Dr. Mckeon which demonstrated heavily calcified left anterior descending coronary artery with a 99% proximal stenosis, a 60% stenosis to his proximal left circumflex coronary artery and a chronic total occlusion of the right coronary artery with collaterals from the left side. Due to the patient's symptoms and findings on the heart catheterization a consult was placed to Dr. Celestine Luna from cardiothoracic surgery for further evaluation and treatment recommendations. The findings on the heart catheterization were discussed with the patient, risks and benefits of myocardial revascularization surgery including the STS risk score were discussed with the patient and he wished to proceed with elective myocardial revascularization surgery. HOSPITAL COURSE: The patient was admitted to the hospital and after obtaining consent was brought to the preoperative area on 08/29/2019, prepared in the usual fashion and subsequently taken to the operating room where Dr. Celestine castellano performed a triple-vessel coronary artery bypass grafting using the left internal mammary artery to the left anterior descending coronary artery, left radial artery from the aorta to the obtuse marginal coronary artery, a reverse greater saphenous vein graft from the aorta to the posterior descending coronary artery, endoscopic harvesting of the left radial artery and left greater saphenous vein from the groin to the mid lower leg, intraoperative transesophageal echocardiogram, epi-aortic scanning and intraoperative graft flow measurements using the Ed[employer]ge system. Upon completion of the surgery the patient was transferred to the cardiovascular intensive care unit where he was recovered, monitored hemodynamically and where he progressed cardiac rehabilitation phase 1. He was extubated, all lines, tubes and supportive drips were discontinued when appropriate and he was transferred to the cardiac stepdown unit for further monitoring and rehabilitation. His oxygen was titrated down to room air, he continued to work with physical, occupational therapy and cardiac rehabilitation, he was tolerating an oral diet, his pain was well-controlled and he was ready to be discharged home with [facility] care on postoperative day #5. He has received written and verbal instructions regarding his medications, activity restrictions, signs and symptoms requiring physician notification and his follow-up appointments. COMPLICATIONS: There were no postoperative complications. CONSULTATIONS: 1. Dr. Mckeon for cardiology management. 2. Dr. Monteiro for pulmonary and ventilator management. 3. Dr. Reyes for medical management. DISCHARGE INSTRUCTIONS: 1. No driving for 4 weeks, or until physician gives their ok. 2. The patient should sleep in their own bed, no medical bed needed. 3. Stairs are not an issue. If the bedroom is upstairs, it is advised that the patient go up at night and down in the morning for the first week. Go slowly, using handrail and take 1 step at a time. 4. ROBY hose are to be worn for 30 days or until physician discontinues. 5. Heart hugger is to be worn 100% of the time until physician discontinues.(except when showering) 6. No lifting, pushing, or pulling more than 10 pounds for 12 weeks. The physician will advise of any restriction changes. 7. The patient is expected to continue the prescribed walking program. 8. Continue pain control per as needed orders. 9. Continue with incentive spirometry and splinting/heart hugger until otherwise directed by the physician. 10. Must shower daily using liquid antibacterial soap and a separate white washcloth for each individual incision. 11. Routine sternal incision care, no ointments, lotions or powders on the incisions. 12. Please notify surgeon/nurse practitioner for temperature greater than 101F or purulent drainage from incisions 13. Prescriptions for first 30 days given per cardiac surgery service. After 30 days, all prescription refills obtained through cardiology/primary care physician. 14. A red arm and has been placed on this patient it should be worn for 30 days post surgery and will be removed by the cardiothoracic surgeons. If an ER visit is necessary, please make sure the number on the red arm band is called. 15. A referral to cardiac rehab has been placed and to start within 4-6 weeks post discharge. 16. The importance of continued smoking cessation was discussed with the patient. 17. The patient is being discharged home with Cardizem CD 120 mg by mouth daily for radial artery spasm prophylaxis, please do not discontinue without checking with cardiothoracic surgery. HOME HEALTH SERVICES TO PROVIDE: RN SKILLED HOME CARE SERVICES FOR POST-OP SURGICAL PATIENTS WITH THE FOLLOWING: Coronary Artery Bypass Surgery (CABG), Mitral Valve Replacement/Repair ( MVR), Aortic Valve Replacement/Repair (AVR) RN TO CONTINUE EDUCATION FROM ``ROAD TO A HEALTH HEART PATIENT EDUCATION MANUAL" (GIVEN TO PATIENT IN THE HOSPITAL) MEDICATION RECONCILIATION WITH EDUCATION NEEDED ON FIRST HOME VISIT EMPHASIZE IMPORTANCE OF WEARING BREAST SUPPORT/HEART HUGGER ENCOURAGE USE OF INCENTIVE SPIROMETER 10 X EVERY HOUR WHILE AWAKE ENCOURAGE UTILIZATION OF LOWER EXTREMITY COMPRESSION STOCKINGS/ROBY HOSE and ELEVATE LEGS ABOVE LEVEL OF HEART WHILE AT REST. ENCOURAGE AMBULATION 3-5x/day INCREASING TOLERATES, WHILE AVOID EXTREMES IN TEMPERATURE FREQUENCY: RN TO OPEN THE PATIENT WITHIN 24 HOURS OF DISCHARGE FROM THE HOSPITAL WITH TELEHEALTH INSTALLED AT [facility], RN TO VISIT 2-3 X A WEEK FOR 4 WEEKS ESTABLISHED BY PATIENT NEEDS. LABORATORY: CBC, CMP TO BE DRAWN ON THE THIRD DAY HOME, (RAN STAT) FAX RESULTS TO [phone]. TELEHEALTH PARAMETERS: WEIGHT: NOTIFY MD OF WEIGHT GAIN OF 2 LBS IN 24 HOURS OR 5 LBS IN ONE WEEK HR: NOTIFY MD OF HR <55 BPM OR HR>100 BPM BP: NOTIFY MD IF BP <90/55 OR BP>140/100 O2 SAT: NOTIFY MD IF PO2<93% ON ROOM AIR SEND TELEHEALTH REPORT TO SOLVENT PLANT TREATER AND CARDIOVASCULAR SURGEON THE FIRST WEEK OF CARE AND THEN BI-WEEKLY. PLEASE ADDITIONALLY COMMUNICATE ANY ABNORMALS AND NEW FINDINGS TO THE SURGEONS OFFICE. Plan - Discharge Summary Discharge Rx Participant: Yes New Discharge Prescriptions: New Aspirin 325 mg PO DAILY #30 tab Diltiazem Cd [Cardizem CD] 120 mg PO DAILY #30 cap.er.24h Ferrous Sulfate [Iron (65 MG Elemental)] 325 mg PO BID-W/MEALS #14 tab Furosemide [Lasix] 20 mg PO DAILY #7 tab Atorvastatin [Lipitor] 40 mg PO DAILY #30 tab Metoprolol Tartrate [Lopressor] 50 mg PO BID #60 tab Clopidogrel [Plavix] 75 mg PO DAILY #30 tab Pantoprazole [Protonix] 40 mg PO AC-BRKFST #30 tablet. Sennosidejin-Docusate Sodium [Senokot-S] 2 each PO HS #14 tab Acetaminophen Tab [Tylenol] 1,000 mg PO Q6HR PRN tab PRN Reason: Fever And/ Or Pain Ascorbic Acid [Vitamin C] 500 mg PO BID-W/MEALS #14 tab metFORMIN HCL [Glucophage] 1,000 mg PO BID-W/MEALS #120 tab Insulin Glargine,Hum.rec.anlog [Lantus Solostar] 18 unit SQ DAILY #2 pen Insulin Aspart [NovoLOG Flexpen] 5 units SQ AC-TID #2 pen Continue sitaGLIPtin [Januvia] 100 mg PO DAILY Discontinued metFORMIN HCL [metFORMIN HCL ER] 1,500 mg PO W/SUPPER Losartan [Cozaar] 50 mg PO DAILY Spironolactone 25 mg PO DAILY Rosuvastatin Calcium 40 mg PO DAILY Metoprolol Tartrate [Lopressor] 50 mg PO BID Aspirin 325 mg PO DAILY Discharge Medication List sitaGLIPtin [Januvia] 100 mg PO DAILY 08/10/19 [History] Acetaminophen Tab [Tylenol] 1,000 mg PO Q6HR PRN tab 09/04/19 [Rx] Ascorbic Acid [Vitamin C] 500 mg PO BID-W/MEALS #14 tab 09/04/19 [Rx] Aspirin 325 mg PO DAILY #30 tab 09/04/19 [Rx] Atorvastatin [Lipitor] 40 mg PO DAILY #30 tab 09/04/19 [Rx] Clopidogrel [Plavix] 75 mg PO DAILY #30 tab 09/04/19 [Rx] Diltiazem Cd [Cardizem CD] 120 mg PO DAILY #30 cap.er.24h 09/04/19 [Rx] Ferrous Sulfate [Iron (65 MG Elemental)] 325 mg PO BID-W/MEALS #14 tab 09/04/19 [Rx] Furosemide [Lasix] 20 mg PO DAILY #7 tab 09/04/19 [Rx] Insulin Aspart [NovoLOG Flexpen] 5 units SQ AC-TID #2 pen 09/04/19 [Rx] Insulin Glargine,Hum.rec.anlog [Lantus Solostar] 18 unit SQ DAILY #2 pen 09/04/19 [Rx] Metoprolol Tartrate [Lopressor] 50 mg PO BID #60 tab 09/04/19 [Rx] Pantoprazole [Protonix] 40 mg PO AC-BRKFST #30 tablet. 09/04/19 [Rx] Sennosides-Docusate Sodium [Senokot-S] 2 each PO HS #14 tab 09/04/19 [Rx] metFORMIN HCL [Glucophage] 1,000 mg PO BID-W/MEALS #120 tab 09/04/19 [Rx] Follow up Appointment(s)/Referral(s): Kevin Monteiro MD [STAFF PHYSICIAN] - 09/24/19 9:15 am (Zachary) Mouna Shaffer NPC [Nurse Practitioner] - 09/07/19 11:00 am (Tuesday) Celina Mckeon MD [STAFF PHYSICIAN] - 09/18/19 9:30 am (Tuesday) [facility],Cardiac [NON-STAFF] - 4 Weeks (Expect to begin Cardiac Rehab 4- 6 weeks after discharge. You will be called to set up an appointment.) Celestine Luna MD [STAFF PHYSICIAN] - 09/21/19 10:00 am (Tuesday) [facility], [NON-STAFF] - 1-2 Days Rickie Reyes MD [Primary Care Provider] - 2 Weeks (office will call to make appointment) Ambulatory/Diagnostic Orders: Basic Metabolic Panel [LAB.AMB] Time Frame: 09/07/19, [facility], Location: [facility] Complete Blood Count w/diff [LAB.AMB] Time Frame: 09/07/19, Facility: [facility], Location: [facility] Patient Instructions/Handouts: Cardiac Rehabilitation (DC) Activity/Diet/Wound Care/Special Instructions: DISCHARGE INSTRUCTIONS: 1. No driving for 4 weeks, or until physician gives their ok. 2. The patient should sleep in their own bed, no medical bed needed. 3. Stairs are not an issue. If the bedroom is upstairs, it is advised that the patient go up at night and down in the morning for the first week. Go slowly, using handrail and take 1 step at a time. 4. ROBY hose are to be worn for 30 days or until physician discontinues. 5. Heart hugger is to be worn 100% of the time until physician discontinues.(except when showering) 6. No lifting, pushing, or pulling more than 10 pounds for 12 weeks. The physician will advise of any restriction changes. 7. The patient is expected to continue the prescribed walking program. 8. Continue pain control per as needed orders. 9. Continue with incentive spirometry and splinting/heart hugger until otherwise directed by the physician. 10. Must shower daily using liquid antibacterial soap and a separate white washcloth for each individual incision. 11. Routine sternal incision care. No powders, lotions, ointments on incisions. No dressings are necessary on incisions unless they are draining. Dermabond tape is to remain on sternal incision until surgeon follow-up. 12. Please call surgeon/REPAIRER AUTO CLOCKS for temp greater than 101 F or purulent drainage from incisions. 13. All prescriptions given by surgeon for 30 days. Refills need to be filled through java developer with security clearance/primary care physician. 14. A Red armband has been placed on the patient. It should be worn for 30 days post surgery and will be removed by the cardiac surgeons. If an ER visit is necessary, please make sure the number on the Red armband is called. 15. You have been referred to and are expected to begin Cardiac Rehab in approximately 4-6 weeks. 16. The importance of continued smoking cessation was discussed with the patient. 17. Please check her blood sugars before meals and at bedtime, keep a log of her blood sugars and bring the log with her follow-up appointment with Dr. Reyes. HOME HEALTH SERVICES TO PROVIDE: RN SKILLED HOME CARE SERVICES FOR POST-OP SURGICAL PATIENTS WITH THE FOLLOWING: Coronary Artery Bypass Surgery (CABG), Mitral Valve Replacement/Repair ( MVR), Aortic Valve Replacement/Repair (AVR) RN TO CONTINUE EDUCATION FROM ``ROAD TO A HEALTH HEART PATIENT EDUCATION MANUAL (GIVEN TO PATIENT IN THE HOSPITAL) MEDICATION RECONCILIATION WITH EDUCATION NEEDED ON FIRST HOME VISIT EMPHASIZE IMPORTANCE OF WEARING BREAST SUPPORT/HEART HUGGER ENCOURAGE USE OF INCENTIVE SPIROMETER 10 X EVERY HOUR WHILE AWAKE ENCOURAGE UTILIZATION OF LOWER EXTREMITY COMPRESSION STOCKINGS/ROBY HOSE and ELEVATE LEGS ABOVE LEVEL OF HEART WHILE AT REST. ENCOURAGE AMBULATION 3-5x/day INCREASING TOLERATES, WHILE AVOIDING EXTREMES IN TEMPERATURE FREQUENCY: RN TO OPEN THE PATIENT WITHIN 24 HOURS OF DISCHARGE FROM THE HOSPITAL WITH TELEHEALTH INSTALLED AT [facility], RN TO VISIT 2-3 X A WEEK FOR 4 WEEKS ESTABLISHED BY PATIENT NEEDS. LABORATORY: CBC, CMP TO BE DRAWN ON THE THIRD DAY HOME, (RAN STAT) FAX RESULTS TO [phone]. TELEHEALTH PARAMETERS: WEIGHT: NOTIFY MD OF WEIGHT GAIN OF 2 LBS IN 24 HOURS OR 5 LBS IN ONE WEEK HR: NOTIFY MD OF HR <55 BPM OR HR>100 BPM BP: NOTIFY MD IF BP <90/55 OR BP>140/100 O2 SAT: NOTIFY MD IF PO2<93% ON ROOM AIR SEND TELEHEALTH REPORT TO SOLVENT PLANT TREATER AND CARDIOVASCULAR SURGEON THE FIRST WEEK OF CARE AND THEN BI-WEEKLY. PLEASE ADDITIONALLY COMMUNICATE ANY ABNORMALS AND NEW FINDINGS TO THE SURGEONS OFFICE. For any questions or concerns please call boring machine set up operator Mouna @ or Thiago @ Discharge Disposition: HOME WITH HOME HEALTH SERVICES
--- NOTE | 2019-09-04 14:39 | P.PN ---
Subjective Progress Note Date: 09/04/19 This is a 63-year-old white male with history of multiple medical problems including hypertension, type 2 diabetes, previous [place] in 2010, and previous stenting of the circumflex. He is status post coronary bypass grafting surgery using a AARON to the LAD, left radial artery from the aorta to the obtuse mar ginal artery, reverse saphenous vein graft from the aorta to the posterior descending artery, being followed on the telemetry unit this morning, doing very well overall. Ambulating in the hallway without any difficulty. He is currently on IV Lasix. Hemoglobin today is down to 6.7. He is working on his incentive spirometry. Blood pressure 108/50 with a heart rate in the 80s temperature 98.1 09/04/2019 Patient seen and examined this morning, hemodynamically stable. Anticipating discharge today. White blood cell count 10.4, hemoglobin 7.2, platelet count 226. Sodium 135, potassium 4.6, BUN 32, creatinine 0.9. Objective - Vital Signs Vital signs: Vital Signs Temp 98.3 F 09/04/19 11:54 Pulse 85 09/04/19 11:54 Resp 20 09/04/19 11:54 BP 117/58 09/04/19 11:54 Pulse Ox 95 09/04/19 11:54 Intake & Output 09/03/19 09/04/19 09/04/19 18:59 06:59 18:59 Intake Total 480 240 Output Total 400 Balance 80 240 Weight 97.4 kg 97.2 kg Intake: Oral 480 240 Output: Urine 400 Other: Voiding Method Toilet Toilet Toilet # Voids 0 1 # Bowel Movements 0 ABP, PAP, CO, CI - Last Documented Arterial Blood Pressure 128/49 Pulmonary Artery Pressure 22/11 Cardiac Output 7.6 Cardiac Index 3.8 - Exam GENERAL EXAM: Alert, very pleasant, 63-year-old white male, comfortable in no apparent distress at the time of my examination. HEAD: Normocephalic/atraumatic. EYES: Normal reaction of pupils, equal size. Conjunctiva pink, sclera white. NOSE: Clear with pink turbinates. THROAT: No erythema or exudates. NECK: No masses, no JVD, no thyroid enlargement, no adenopathy. CHEST: No chest wall deformity. Symmetrical expansion. Midsternal incision is clean dry and intact, chest tube sites are clean dry and intact, covered with dressings LUNGS: Equal air entry with no crackles, wheeze, rhonchi or dullness. CVS: Regular rate and rhythm, normal S1 and S2, no gallops, no murmurs, no rubs ABDOMEN: Soft, nontender. No hepatosplenomegaly, normal bowel sounds, no guarding or rigidity. EXTREMITIES: No clubbing, no edema, no cyanosis, 2+ pulses and upper and lower extremities. MUSCULOSKELETAL: Muscle strength and tone normal. SPINE: No scoliosis or deformity SKIN: No rashes CENTRAL NERVOUS SYSTEM: Alert and oriented -3. No focal deficits, tone is normal in all 4 extremities. PSYCHIATRIC: Alert and oriented -3. Appropriate affect. Intact judgment and insight. - Labs CBC & Chem 7: 09/04/19 07:54 09/04/19 07:54 Labs: Abnormal Lab Results - Last 24 Hours (Table) 09/03/19 09/03/19 09/04/19 Range/Units 17:23 20:14 02:06 RBC (4.30-5.90) m/uL Hgb (13.0-17.5) gm/dL Hct (39.0-53.0) % MCHC (31.0-37.0) g/dL RDW (11.5-15.5) % Sodium (137-145) mmol/L BUN (9-20) mg/dL Glucose (74-99) mg/dL POC Glucose (mg/dL) 108 H 143 H 162 H (75-99) mg/dL 09/04/19 09/04/19 09/04/19 Range/Units 06:24 07:54 07:54 RBC 2.37 L (4.30-5.90) m/uL Hgb 7.2 L (13.0-17.5) gm/dL Hct 23.2 L (39.0-53.0) % MCHC 30.9 L (31.0-37.0) g/dL RDW 17.0 H (11.5-15.5) % Sodium 135 L (137-145) mmol/L BUN 32 H (9-20) mg/dL Glucose 171 H (74-99) mg/dL POC Glucose (mg/dL) 157 H (75-99) mg/dL 02/11/20 Range/Units 13:04 RBC (4.30-5.90) m/uL Hgb (13.0-17.5) gm/dL Hct (39.0-53.0) % MCHC (31.0-37.0) g/dL RDW (11.5-15.5) % Sodium (137-145) mmol/L BUN (9-20) mg/dL Glucose (74-99) mg/dL POC Glucose (mg/dL) 134 H (75-99) mg/dL Assessment and Plan Plan: Assessment and plan #1. Coronary artery disease, status post triple-vessel artery bypass grafting, postoperative day #5 #2. History of mild COPD, asymptomatic #3. Type 2 diabetes mellitus without complications #4. Hypertension #5. Dyslipidemia Plan From cardiology's perspective, we'll recommend to continue current medical treatment. Discharged once cleared by primary. DNP note has been reviewed, I agree with a documented findings and plan of care. Patient was seen and examined.
--- NOTE | 2019-09-05 10:45 | CDI ---
Documentation Clarification Form Date: 09/05/19 From: Christy Maloney Phone: If you have a question about this query, please contact Cheryl Vega, Rn Birthing at [phone] between 8am and 5pm. Admit Date: 08/29/19 Discharge Date:09/04/19 Patient Name: Pb Lozada Visit Number: [id number] ATTENTION: The Clinical Documentation Specialists (CDI) and [facility] Coding Staff appreciate your assistance in clarifying documentation. Please respond to the clarification below the line at the bottom and electronically sign. The CDI & [facility] Coding staff will review the response and follow-up if needed. Please note: Queries are made part of the Legal Health Record. If you have any questions, please contact the author of this message via ITS. Dear Dr. Luna Acute exacerbation of systolic dysfunction and congestive heart failure is documented in Dr. Coffey's 09/03 and 09/04 progress notes. History/Risk Factors: CAD, hypertension Clinical Indicators: Prominence of the pulmonary vasculature VS/Pulse OX: T. 98.0, P. 86, R. 20, BP 112/52, Pulse Ox. 92 BNP: Not tested Echocardiogram Results: MARISELA confirmed the preoperative finding of preserved systolic function, left ventricular hypertophy with some diastolic dysfunction. Chest X Ray: 09/03 - Mild cardiomegaly with mild prominence of pulmonary vascular markings. Correlate for volume overload. Treatment: IV Lasix 20 mg x 2. In your professional opinion, can you please clarify the acuity and type of CHF if known? CHF Ruled Out Systolic Heart Failure: Acute Chronic Acute on Chronic Diastolic Heart Failure: Acute Chronic Acute on Chronic Systolic & Diastolic Heart Failure: Acute Chronic Acute on Chronic Heart Failure Unable to Determine Other, please specify MTDD
== END 2019-09-04 16:21 | disposition home health service (06) | DRG 235 ==
LOC: 2ORMAIN 06:38 → 2SICU 16:14 → 3SCARD 08-31 13:16
PROVIDERS: ADMIT Surgery; ATTEND Surgery
PROC: 021009W Bypass Coronary Artery, One Artery from Aorta with Autologous Venous Tissue, Open Approach (ICD-10-PCS; principal; 2019-08-29 09:00)
PROC: B24BZZ4 Ultrasonography of Heart with Aorta, Transesophageal (ICD-10-PCS; principal; 2019-08-29 09:00)
PROC: 02100Z9 Bypass Coronary Artery, One Artery from Left Internal Mammary, Open Approach (ICD-10-PCS; principal; 2019-08-29 09:00)
PROC: 03BC4ZZ Excision of Left Radial Artery, Percutaneous Endoscopic Approach (ICD-10-PCS; principal; 2019-08-29 09:00)
PROC: 06BQ4ZZ Excision of Left Saphenous Vein, Percutaneous Endoscopic Approach (ICD-10-PCS; principal; 2019-08-29 09:00)
PROC: 5A1221Z Performance of Cardiac Output, Continuous (ICD-10-PCS; principal; 2019-08-29 09:00)
PROC: 02100AW Bypass Coronary Artery, One Artery from Aorta with Autologous Arterial Tissue, Open Approach (ICD-10-PCS; principal; 2019-08-29 09:00)
DX: I25.10 Atherosclerotic heart disease of native coronary artery without angina pectoris (principal); I50.23 Acute on chronic systolic (congestive) heart failure; D62 Acute posthemorrhagic anemia; J98.11 Atelectasis; T79.7XXA Traumatic subcutaneous emphysema, initial encounter; E88.81 Metabolic syndrome and other insulin resistance; I11.0 Hypertensive heart disease with heart failure; I25.82 Chronic total occlusion of coronary artery; E11.9 Type 2 diabetes mellitus without complications; E66.9 Obesity, unspecified; E78.5 Hyperlipidemia, unspecified; F17.210 Nicotine dependence, cigarettes, uncomplicated; I25.2 Old myocardial infarction; J44.9 Chronic obstructive pulmonary disease, unspecified; K42.9 Umbilical hernia without obstruction or gangrene; K43.9 Ventral hernia without obstruction or gangrene; K59.00 Constipation, unspecified; G47.00 Insomnia, unspecified; I35.0 Nonrheumatic aortic (valve) stenosis; Z79.82 Long term (current) use of aspirin; Z79.899 Other long term (current) drug therapy; Z79.84 Long term (current) use of oral hypoglycemic drugs; Z95.5 Presence of coronary angioplasty implant and graft; Z68.36 Body mass index [BMI] 36.0-36.9, adult; Z82.49 Family history of ischemic heart disease and other diseases of the circulatory system; Z83.3 Family history of diabetes mellitus
CPT/HCPCS: 71045; 71046; 80048; 80053; 82330; 82728; 82805; 83540; 83550; 83735; 85025; 85027; 85520; 85610; 85730; 86850; 86891; 86900; 86901; 86920; 94002; 94640; 94760

== ENCOUNTER → 2020-01-07 | Outpatient (CLI) | payer BC ==
[2020-01-07 16:53] LABS: African American GFR (CKD) 92.4 (60.0-200.0); Albumin 4.6 g/dL (3.80-4.90); Albumin/Globulin Ratio 1.77 (1.60-3.17); Anion Gap 10.8 mmol/L (4.00-12.00); Calcium 9.6 mg/dL (8.7-10.3); Carbon Dioxide 24.2 mmol/L (21.6-31.8); Chol/HDL Ratio 6.54; Globulin 2.6 g/dL (1.6-3.3); Non-African American GFR(CKD) 79.7 (60.0-200.0); Potassium 5.8 mmol/L (3.5-5.5); Total Bilirubin 0.4 mg/dL (0.2-1.2); Total Protein 7.2 g/dL (6.2-8.2)
== END | disposition home or self-care (01) ==
LOC: LABWHC1 09:23
PROVIDERS: ATTEND Nurse Practitioner Adult Health
DX: E78.2 Mixed hyperlipidemia (principal); I10 Essential (primary) hypertension; E11.9 Type 2 diabetes mellitus without complications
CPT/HCPCS: 36415; 80053; 80061

== ENCOUNTER → 2020-02-04 | Outpatient (CLI) | payer BC ==
[2020-02-04 17:38] LABS: African American GFR (CKD) >90 (>60 ml/min/1.73 sqM); Blood Urea Nitrogen 19 mg/dL (9-20); Non-African American GFR(CKD) 78 (>60 ml/min/1.73 sqM)
--- NOTE | 2020-02-04 22:12 | CT ---
EXAMINATION TYPE: CT angio abdomen DATE OF EXAM: 02/04/2020 COMPARISON: None. HISTORY: AAA CT DLP: 738.4 mGycm, Automated Exposure Control for Dose Reduction was Utilized. CONTRAST: CT scan of the abdomen and pelvis is performed without oral but with IV Contrast, patient injected wi th 100 mL of Isovue 370. Three-D reconstructed images are created on a independent workstation and re viewed FINDINGS: Vascular: Infrarenal AAA measuring up to 3.3 cm transversely X image 55 and then measures 3.2 x 3.3 c m transversely distal to this segment image 62. No aneurysm extension into common iliac arteries. Mil d to moderate mixed plaque is present. Patent celiac artery with significant stenosis, lumen diameter narrowed to 1.6 mm size image 59 series 11 with 5.6 cm diameter distal to this sagittal image 60. Pa tent SMA. Patent bilateral single renal arteries without significant stenosis, prominent calcified pl aque at origin of right renal artery noted. Patent GISELLE. Moderate calcified plaque in the common iliac arteries bilaterally without significant stenosis. Mild/moderate mixed plaque in the visualized port ion of the external iliac arteries without significant stenosis. LUNG BASES: Partial visualization of sternal wires and mediastinal clips. Mild chronic parenchymal fi brotic changes. LIVER/GB: Liver diffusely low dense suggesting fatty infiltration.. PANCREAS: No significant abnormality is seen. SPLEEN: No significant abnormality is seen. ADRENALS: Probable 2.7 cm left adrenal lipoma or myelolipoma Image 37. Slight thickening to the left adrenal gland inferior to this favoring lipid rich hyperplasi a.. KIDNEYS: No significant abnormality is seen. BOWEL: Diverticula in the left and sigmoid colon. Suboptimal evaluation of stomach due to poor disten tion. PROSTATE/SEMINAL VESICLES: Not included in field of view. LYMPH NODES: No greater than 1cm abdominal or pelvic lymph nodes are appreciated. OSSEOUS STRUCTURES: Bilateral pars defect L5 level with grade 1 anterolisthesis L5 on S1. Moderate di sc space narrowing and vacuum disc phenomenon. Moderate multilevel spurring in the thoracic spine. OTHER: Ventral wall hernia containing fat and tiny mesenteric vessels below level of umbilicus axial image 74. IMPRESSION: There is bilobed AAA up to 3.2 cm. No iliac artery extension. 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
== END | disposition home or self-care (01) ==
LOC: RADCTMAIN 17:02
PROVIDERS: ATTEND Internal Medicine Interventional Cardiology
DX: I71.4 Abdominal aortic aneurysm, without rupture (principal); I77.4 Celiac artery compression syndrome; Z88.0 Allergy status to penicillin
CPT/HCPCS: 82565; 84520; 74175; 36415; Q9967

== ENCOUNTER 2020-04-09 14:13 | Emergency (ER) | payer BC ==
[2020-04-09 14:22] VITALS: BP 124/78; PULSE 59; TEMP 97.9
[2020-04-09] MEDS ORDERED: predniSONE 20 MG TAB PO STA (14:41)
[2020-04-09] MEDS ORDERED: FAMOTIDINE 20 MG TAB PO STA (14:41)
[2020-04-09] MEDS ORDERED: diphenhydrAMINE 50 MG CAP PO STA (14:41)
--- NOTE | 2020-04-09 14:43 | ED ---
Allergic Reaction HPI - General Chief complaint: Allergic Reaction Stated complaint: bee sting lt eye Time Seen by Provider: 04/09/20 14:26 Source: patient, RN notes reviewed Mode of arrival: ambulatory Limitations: no limitations - History of Present Illness Initial Comments: 64-year-old male presents emergency Department with chief complaint swelling to the left side of his face. Patient states that he was stung earlier today states his been swelling around his left eye no pain no difficulty breathing or difficulty swallowing. Patient is not taking medications for this. Patient states he presented emergency from because of the swelling. Patient offers no complaints. - Related Data Home Medications Medication Instructions Recorded Confirmed sitaGLIPtin [Januvia] 100 mg PO DAILY 08/10/19 08/29/19 Previous Rx's Medication Instructions Recorded Acetaminophen Tab [Tylenol] 1,000 mg PO Q6HR PRN tab 09/04/19 Ascorbic Acid [Vitamin C] 500 mg PO BID-W/MEALS #14 tab 09/04/19 Aspirin 325 mg PO DAILY #30 tab 09/04/19 Atorvastatin [Lipitor] 40 mg PO DAILY #30 tab 09/04/19 Clopidogrel [Plavix] 75 mg PO DAILY #30 tab 09/04/19 Diltiazem Cd [Cardizem CD] 120 mg PO DAILY #30 cap.er.24h 09/04/19 Ferrous Sulfate [Iron (65 MG 325 mg PO BID-W/MEALS #14 tab 09/04/19 Elemental)] Furosemide [Lasix] 20 mg PO DAILY #7 tab 09/04/19 Insulin Aspart [NovoLOG Flexpen] 5 units SQ AC-TID #2 pen 09/04/19 Insulin Glargine,Hum.rec.anlog 18 unit SQ DAILY #2 pen 09/04/19 [Lantus Solostar] Metoprolol Tartrate [Lopressor] 50 mg PO BID #60 tab 09/04/19 Pantoprazole [Protonix] 40 mg PO AC-BRKFST #30 tablet.dr 09/04/19 Sennosides-Docusate Sodium 2 each PO HS #14 tab 09/04/19 [Senokot-S] metFORMIN HCL [Glucophage] 1,000 mg PO BID-W/MEALS #120 tab 09/04/19 Allergies Allergy/AdvReac Type Severity Reaction Status Date / Time Penicillins Allergy Rash/Hives Verified 04/09/20 14:19 Review of Systems ROS Statement: Those systems with pertinent positive or pertinent negative responses have been documented in the HPI. ROS Other: All systems not noted in ROS Statement are negative. Past Medical History Past Medical History: Diabetes Mellitus, Hyperlipidemia, Hypertension, Myocardial Infarction ([place]) Additional Past Medical History / Comment(s): current umbilical hernia Last Myocardial Infarction Date:: 2010 History of Any Multi-Drug Resistant Organisms: None Reported Past Surgical History: Heart Catheterization With Stent Additional Past Surgical History / Comment(s): recent cardiac cath Past Anesthesia/Blood Transfusion Reactions: No Reported Reaction Additional Past Anesthesia/Blood Transfusion Reaction / Comment(s): no surgical hx Date of Last Stent Placement:: 2010 Past Psychological History: No Psychological Hx Reported Smoking Status: Never smoker Past Alcohol Use History: None Reported Past Drug Use History: None Reported - Past Family History Mother Family Medical History: No Reported History Additional Family Medical History / Comment(s): Mother at age 72 from diabetes complications. No history of coronary artery disease. Father Family Medical History: Coronary Artery Disease (CAD), Myocardial Infarction ([place]) Additional Family Medical History / Comment(s): father at age 62 from myocardial infarction with history of coronary artery disease. Brother(s) Family Medical History: Coronary Artery Disease (CAD) Additional Family Medical History / Comment(s): Patient has 2 brothers one from myocardial infarction. One brother had myocardial infarction status post 3 vessel CABG. Sister(s) Additional Family Medical History / Comment(s): Patient has 2 sisters and one has diabetes. Patient has 3 daughters and 2 sons with no major medical problems. General Exam Limitations: no limitations General appearance: alert, in no apparent distress Head exam: Present: atraumatic, normocephalic, normal inspection Eye exam: Present: normal appearance, PERRL, EOMI, periorbital swelling (moderate left-sided). Absent: scleral icterus, conjunctival injection, periorbital tenderness ENT exam: Present: normal exam, normal oropharynx, mucous membranes moist Neck exam: Present: normal inspection, full ROM. Absent: tenderness, meningismus, lymphadenopathy Respiratory exam: Present: normal lung sounds bilaterally. Absent: respiratory distress, wheezes, rales, rhonchi, stridor Cardiovascular Exam: Present: regular rate, normal rhythm, normal heart sounds. Absent: systolic murmur, diastolic murmur, rubs, gallop, clicks Course Vital Signs 04/09/20 14:19 Temperature 97.9 F Pulse Rate 59 L Respiratory 16 Rate Blood Pressure 124/78 O2 Sat by Pulse 98 Oximetry Medical Decision Making - Medical Decision Making 64-year-old presented for bee sting. Patient has localized swelling no systemic reaction. Patient will be given Benadryl, steroids and Pepcid. Return parameters were discussed. Disposition Clinical Impression: Bee sting Disposition: HOME SELF-CARE Condition: Stable Instructions (If sedation given, give patient instructions): Insect Bite or Sting (ED) Additional Instructions: Please return to the Emergency Department if symptoms worsen or any other concerns. Is patient prescribed a controlled substance at d/c from ED?: No Referrals: Rickie Reyes MD [Primary Care Provider] - 1-2 days Time of Disposition: 14:42
[2020-04-09 15:02] VITALS: RESP 18
== END 2020-04-09 15:07 | disposition home or self-care (01) ==
LOC: EC 14:13
DX: T63.441A Toxic effect of venom of bees, accidental (unintentional), initial encounter (principal); R22.0 Localized swelling, mass and lump, head; E11.9 Type 2 diabetes mellitus without complications; I25.2 Old myocardial infarction; Z79.84 Long term (current) use of oral hypoglycemic drugs; Z88.0 Allergy status to penicillin
CPT/HCPCS: 99283; J7512

== ENCOUNTER 2020-09-28 | Emergency (ER) | payer BC ==
--- NOTE | 2020-09-28 09:34 | ED ---
General Adult HPI - General Chief complaint: Extremity Injury, Upper Stated complaint: Finger infection Time Seen by Provider: 09/28/20 09:21 Source: patient, RN notes reviewed Mode of arrival: ambulatory Limitations: no limitations - History of Present Illness Initial comments: 64-year-old male presents emergency heart with chief complaint of skin rash, dental issues. Patient states that he pulled his own to states that he broke off. Patient doesn't wear mild pain. Patient states that he noticed some skin irritation his fingers and blistering. Patient's concerned about possible infection denies any new soaps lotions surgeon or any other medications. - Related Data Home Medications Medication Instructions Recorded Confirmed sitaGLIPtin [Januvia] 100 mg PO DAILY 08/10/19 08/29/19 Previous Rx's Medication Instructions Recorded Acetaminophen Tab [Tylenol] 1,000 mg PO Q6HR PRN tab 09/04/19 Ascorbic Acid [Vitamin C] 500 mg PO BID-W/MEALS #14 tab 09/04/19 Aspirin 325 mg PO DAILY #30 tab 09/04/19 Atorvastatin [Lipitor] 40 mg PO DAILY #30 tab 09/04/19 Clopidogrel [Plavix] 75 mg PO DAILY #30 tab 09/04/19 Diltiazem Cd [Cardizem CD] 120 mg PO DAILY #30 cap.er.24h 09/04/19 Ferrous Sulfate [Iron (65 MG 325 mg PO BID-W/MEALS #14 tab 09/04/19 Elemental)] Furosemide [Lasix] 20 mg PO DAILY #7 tab 09/04/19 Insulin Aspart [NovoLOG Flexpen] 5 units SQ AC-TID #2 pen 09/04/19 Insulin Glargine,Hum.rec.anlog 18 unit SQ DAILY #2 pen 09/04/19 [Lantus Solostar] Metoprolol Tartrate [Lopressor] 50 mg PO BID #60 tab 09/04/19 Pantoprazole [Protonix] 40 mg PO AC-BRKFST #30 tablet.dr 09/04/19 Sennosides-Docusate Sodium 2 each PO HS #14 tab 09/04/19 [Senokot-S] metFORMIN HCL [Glucophage] 1,000 mg PO BID-W/MEALS #120 tab 09/04/19 Clindamycin HCl 300 mg PO Q6HR #40 cap 09/28/20 Triamcinolone 0.1% Cream [Kenalog 1 applicatio TOPICAL BID #30 gram 09/28/20 0.1% Cream] Allergies Allergy/AdvReac Type Severity Reaction Status Date / Time Penicillins Allergy Rash/Hives Verified 09/28/20 09:18 Review of Systems ROS Statement: Those systems with pertinent positive or pertinent negative responses have been documented in the HPI. ROS Other: All systems not noted in ROS Statement are negative. Past Medical History Past Medical History: Diabetes Mellitus, Hyperlipidemia, Hypertension, Myocardial Infarction ([place]) Additional Past Medical History / Comment(s): current umbilical hernia Last Myocardial Infarction Date:: 2010 History of Any Multi-Drug Resistant Organisms: None Reported Past Surgical History: Coronary Bypass/CABG, Heart Catheterization With Stent Additional Past Surgical History / Comment(s): recent cardiac cath, valve replacement Past Anesthesia/Blood Transfusion Reactions: No Reported Reaction Additional Past Anesthesia/Blood Transfusion Reaction / Comment(s): no surgical hx Date of Last Stent Placement:: 2010 Past Psychological History: No Psychological Hx Reported Smoking Status: Never smoker Past Alcohol Use History: None Reported Past Drug Use History: None Reported - Past Family History Mother Family Medical History: No Reported History Additional Family Medical History / Comment(s): Mother at age 72 from diabetes complications. No history of coronary artery disease. Father Family Medical History: Coronary Artery Disease (CAD), Myocardial Infarction ([place]) Additional Family Medical History / Comment(s): father at age 62 from myocardial infarction with history of coronary artery disease. Brother(s) Family Medical History: Coronary Artery Disease (CAD) Additional Family Medical History / Comment(s): Patient has 2 brothers one from myocardial infarction. One brother had myocardial infarction status post 3 vessel CABG. Sister(s) Additional Family Medical History / Comment(s): Patient has 2 sisters and one has diabetes. Patient has 3 daughters and 2 sons with no major medical problems. General Exam Limitations: no limitations General appearance: alert, in no apparent distress Head exam: Present: atraumatic, normocephalic, normal inspection Eye exam: Present: normal appearance, PERRL, EOMI. Absent: scleral icterus, conjunctival injection, periorbital swelling ENT exam: Present: mucous membranes moist, TM's normal bilaterally. Absent: normal oropharynx (Edentulous, multiple broken teeth.) Neck exam: Present: normal inspection, full ROM. Absent: tenderness, meningismus, lymphadenopathy Respiratory exam: Present: normal lung sounds bilaterally. Absent: respiratory distress, wheezes, rales, rhonchi, stridor Cardiovascular Exam: Present: regular rate, normal rhythm, normal heart sounds. Absent: systolic murmur, diastolic murmur, rubs, gallop, clicks Skin exam: Present: warm, dry, intact, normal color, rash (There is multiple dry patches in the hands, mild erythema dermatitis type rash, there is small area of blistering noted) Course Vital Signs 09/28/20 09:18 Temperature 98.3 F Pulse Rate 90 Respiratory 18 Rate Blood Pressure 137/84 O2 Sat by Pulse 97 Oximetry Medical Decision Making - Medical Decision Making Patient we discharged with steroid cream for dermatitis hands, antibiotics for concern for dental infection. Patient advised follow-up with dentist. Disposition Clinical Impression: Dermatitis, Dental infection Disposition: HOME SELF-CARE Condition: Stable Instructions (If sedation given, give patient instructions): Dermatitis (ED) Additional Instructions: Please return to the Emergency Department if symptoms worsen or any other concerns. Prescriptions: Clindamycin HCl 300 mg PO Q6HR #40 cap Triamcinolone 0.1% Cream [Kenalog 0.1% Cream] 1 applicatio TOPICAL BID #30 gram Is patient prescribed a controlled substance at d/c from ED?: No Referrals: Rickie Reyes MD [Primary Care Provider] - 1-2 days Time of Disposition: 09:34
== END 2020-09-28 09:51 | disposition home or self-care (01) ==
CPT/HCPCS: 99282

== ENCOUNTER → 2020-09-30 | Outpatient (CLI) | payer BC ==
[2020-10-01 02:13] LABS: Hemoglobin A1C 12.4 % (4.0-6.0)
[2020-10-01 03:32] LABS: African American GFR (CKD) 74.1 (60.0-200.0); Albumin 4.8 g/dL (3.80-4.90); Albumin/Globulin Ratio 1.78 (1.60-3.17); Anion Gap 17.6 mmol/L (4.00-12.00); BUN/Creat Ratio 21.67 Ratio (12.00-20.00); Carbon Dioxide 18.4 mmol/L (21.6-31.8); Chol/HDL Ratio 6.66; Globulin 2.7 g/dL (1.6-3.3); Potassium 4.6 mmol/L (3.5-5.5); Total Bilirubin 0.3 mg/dL (0.3-1.2); Total Protein 7.5 g/dL (6.2-8.2)
== END | disposition home or self-care (01) ==
LOC: LABWHC1 14:48
PROVIDERS: ATTEND Internal Medicine Interventional Cardiology
DX: E11.9 Type 2 diabetes mellitus without complications (principal); E78.2 Mixed hyperlipidemia
CPT/HCPCS: 36415; 80053; 80061; 83036; 83721

== ENCOUNTER → 2021-01-28 | Outpatient (CLI) | payer BC ==
[2021-01-28 14:38] LABS: African American GFR (CKD) 104.2 (60.0-200.0); Albumin 4.4 g/dL (3.80-4.90); Albumin/Globulin Ratio 1.69 (1.60-3.17); Anion Gap 10.5 mmol/L (4.00-12.00); BUN/Creat Ratio 15.56 Ratio (12.00-20.00); Calcium 9.3 mg/dL (8.7-10.3); Carbon Dioxide 21.5 mmol/L (21.6-31.8); Chol/HDL Ratio 4.63; Globulin 2.6 g/dL (1.6-3.3); LDL Cholesterol,Calculated 104.8 mg/dL (0.0-131.0); Non-African American GFR(CKD) 89.9 (60.0-200.0); Potassium 4.6 mmol/L (3.5-5.5); Total Bilirubin 0.3 mg/dL (0.2-1.2); VLDL Calculation 51.2 mg/dL (5.00-40.00)
== END | disposition home or self-care (01) ==
LOC: LABWHC1 07:01
PROVIDERS: ATTEND Nurse Practitioner Adult Health
DX: I10 Essential (primary) hypertension (principal); E78.2 Mixed hyperlipidemia
CPT/HCPCS: 36415; 80053; 80061

== ENCOUNTER 2021-05-21 11:21 | Emergency (ER) | payer BC ==
[2021-05-21 11:26] VITALS: BP 121/86; PULSE 64; RESP 18; TEMP 98
--- NOTE | 2021-05-21 12:38 | XR ---
EXAMINATION TYPE: XR hand complete LT DATE OF EXAM: 05/21/2021 CLINICAL HISTORY: Pain and swelling. TECHNIQUE: Frontal, lateral and oblique images of the left hand are obtained. COMPARISON: None. FINDINGS: There is no acute fracture/dislocation evident in the left hand. There is mild to moderate narrowing at the PIP and DIP joints of the phalanges. No significant spurring. Relative sparing of t he MCP joints. The overlying soft tissue appears unremarkable. Surgical clips along the soft tissue o f the distal radial diaphysis with volar aspect are noted. No suspicious bony destruction. Mild narro wing and spurring of base of first metacarpal. IMPRESSION: As above.
--- NOTE | 2021-05-21 13:07 | ED ---
Upper Extremity HPI - General Chief Complaint: Extremity Injury, Upper Stated Complaint: swelling in hand Time Seen by Provider: 05/21/21 11:28 Source: patient, RN notes reviewed Mode of arrival: ambulatory Limitations: no limitations - History of Present Illness Initial Comments: Patient is a 65-year-old male that presents to emergency department with left hand swelling. He notes that he recently had a blister that popped open did not think anything of it but then his hand was swollen this morning. He denied any pain. He notes that it is itchy. He was otherwise well-appearing. He denied any issues or complaints. He denied chest pain first breath headache nausea vomiting diarrhea constipation fever fatigue chills. - Related Data Home Medications Medication Instructions Recorded Confirmed sitaGLIPtin [Januvia] 100 mg PO DAILY 08/10/19 05/21/21 Aspirin 325 mg PO BID 05/21/21 05/21/21 Atorvastatin [Lipitor] 80 mg PO HS 05/21/21 05/21/21 Dapagliflozin Propanediol [Farxiga] 5 mg PO DAILY 05/21/21 05/21/21 Ezetimibe [Zetia] 10 mg PO DAILY 05/21/21 05/21/21 Gemfibrozil [Lopid] 600 mg PO AC-BID 05/21/21 05/21/21 Insulin Glargine,Hum.rec.anlog 21 unit SQ BID 05/21/21 05/21/21 [Lantus Solostar] Spironolactone [Aldactone] 25 mg PO DAILY 05/21/21 05/21/21 Vascepa 1gm 2 gm PO BID 05/21/21 05/21/21 metFORMIN HCL [Glucophage] 1,000 mg PO BID 05/21/21 05/21/21 Previous Rx's Medication Instructions Recorded Diltiazem Cd [Cardizem CD] 120 mg PO DAILY #30 cap.er.24h 09/04/19 Metoprolol Tartrate [Lopressor] 50 mg PO BID #60 tab 09/04/19 Sulfamethox-Tmp 800-160Mg [Bactrim 1 each PO Q12HR #20 tab 05/21/21 Ds] Allergies Allergy/AdvReac Type Severity Reaction Status Date / Time Penicillins Allergy Rash/Hives Verified 05/21/21 12:49 Review of Systems ROS Statement: Those systems with pertinent positive or pertinent negative responses have been documented in the HPI. ROS Other: All systems not noted in ROS Statement are negative. Past Medical History Past Medical History: Diabetes Mellitus, Hyperlipidemia, Hypertension, Myocardial Infarction ([place]) Additional Past Medical History / Comment(s): current umbilical hernia Last Myocardial Infarction Date:: 2010 History of Any Multi-Drug Resistant Organisms: None Reported Past Surgical History: Coronary Bypass/CABG, Heart Catheterization With Stent Additional Past Surgical History / Comment(s): recent cardiac cath, valve replacement Past Anesthesia/Blood Transfusion Reactions: No Reported Reaction Additional Past Anesthesia/Blood Transfusion Reaction / Comment(s): no surgical hx Date of Last Stent Placement:: 2010 Past Psychological History: No Psychological Hx Reported Smoking Status: Never smoker Past Alcohol Use History: None Reported Past Drug Use History: None Reported - Past Family History Mother Family Medical History: No Reported History Additional Family Medical History / Comment(s): Mother at age 72 from diabetes complications. No history of coronary artery disease. Father Family Medical History: Coronary Artery Disease (CAD), Myocardial Infarction ([place]) Additional Family Medical History / Comment(s): father at age 62 from myocardial infarction with history of coronary artery disease. Brother(s) Family Medical History: Coronary Artery Disease (CAD) Additional Family Medical History / Comment(s): Patient has 2 brothers one from myocardial infarction. One brother had myocardial infarction status post 3 vessel CABG. Sister(s) Additional Family Medical History / Comment(s): Patient has 2 sisters and one has diabetes. Patient has 3 daughters and 2 sons with no major medical p roblems. General Exam Limitations: no limitations General appearance: alert, in no apparent distress Head exam: Present: atraumatic, normocephalic, normal inspection Eye exam: Present: normal appearance, PERRL, EOMI. Absent: scleral icterus, conjunctival injection, periorbital swelling ENT exam: Present: normal exam, mucous membranes moist Neck exam: Present: normal inspection Respiratory exam: Present: normal lung sounds bilaterally. Absent: respiratory distress, wheezes, rales, rhonchi, stridor Cardiovascular Exam: Present: regular rate, normal rhythm, normal heart sounds. Absent: systolic murmur, diastolic murmur, rubs, gallop, clicks Extremities exam: Present: normal inspection, full ROM, normal capillary refill, other (Left hand swelling very minimal, nontender). Absent: tenderness, pedal edema, joint swelling, calf tenderness Neurological exam: Present: alert, oriented X3 Psychiatric exam: Present: normal affect, normal mood Skin exam: Present: warm, dry, intact, normal color. Absent: rash Course Vital Signs 05/21/21 11:22 Temperature 98 F Pulse Rate 64 Respiratory 18 Rate Blood Pressure 121/86 O2 Sat by Pulse 95 Oximetry Medical Decision Making - Medical Decision Making 65-year-old male complaining of left hand swelling and itching. On physical exam left hand is minimally swollen mildly erythematous X-ray of the left hand ordered. X-ray negative for any acute fractures dislocations. Patient most likely has a small case of cellulitis. Antibiotics sent to pharmacy. Case discussed with Dr. Thibodeaux, patient discharge home. - Radiology Data Radiology results: report reviewed, image reviewed X-ray of the left hand: There is no acute fracture/dislocation evident left hand. There is mild to moderate narrowing at the PIP and DIP joint of the phalanges. No significant spurring. Relative sparing of the MCP joints. The overlying soft tissue appears unremarkable. Surgical ALONG soft tissue of the distal radius diaphysis with volar aspect are noted. No suspicious point distraction and mild narrowing and spurring of base of first metacarpal. Disposition Clinical Impression: Cellulitis Disposition: HOME SELF-CARE Condition: Stable Instructions (If sedation given, give patient instructions): Cellulitis (ED) Additional Instructions: Please return to the Emergency Department if symptoms worsen or any other concerns. Follow-up with primary care 1-2 days. Take antibiotics as prescribed until complete. Is patient prescribed a controlled substance at d/c from ED?: No Referrals: Rickie Reyes MD [Primary Care Provider] - 1-2 days Time of Disposition: 13:06
== END 2021-05-21 13:16 | disposition home or self-care (01) ==
LOC: EC 11:21
DX: L03.114 Cellulitis of left upper limb (principal); Z88.0 Allergy status to penicillin; E11.9 Type 2 diabetes mellitus without complications; I10 Essential (primary) hypertension; I25.2 Old myocardial infarction; Z79.899 Other long term (current) drug therapy; Z79.4 Long term (current) use of insulin; Z79.82 Long term (current) use of aspirin
CPT/HCPCS: 99283

== ENCOUNTER 2022-11-04 14:14 | Inpatient (IN) | payer BC, MEDICARE ==
[2022-11-04 14:17] LABS: Glucose,Whole Blood 278 mg/dL (70-110)
--- NOTE | 2022-11-04 14:23 | ED ---
General Adult HPI - General Stated complaint: Stroke Time Seen by Provider: 11/04/22 14:14 Source: patient, RN notes reviewed, old records reviewed - History of Present Illness Initial comments: This is a 67-year-old male who presents to the emergency department because patient was altered mentally having slurred speech with left-sided facial droop left arm and leg weakness. According to the per EMS the patient was so co nfused he drove by his house when he came home from the store. EMS states that on the way and he fell asleep improved and now he only has slurred speech. Patient no longer has any facial droop or left arm weakness. Patient has no complaints of chest pain difficulty breathing or shortness of breath. Patient has no palpitations. Patient denies any recent fever chills or cough per patient denies any recent surgeries. Patient states he has a very subtle right- sided headache His eye. - Related Data Home Medications Medication Instructions Recorded Confirmed sitaGLIPtin [Januvia] 100 mg PO DAILY 08/10/19 05/21/21 Aspirin 325 mg PO BID 05/21/21 05/21/21 Atorvastatin [Lipitor] 80 mg PO HS 05/21/21 05/21/21 Dapagliflozin Propanediol [Farxiga] 5 mg PO DAILY 05/21/21 05/21/21 Ezetimibe [Zetia] 10 mg PO DAILY 05/21/21 05/21/21 Insulin Glargine,Hum.rec.anlog 21 unit SQ BID 05/21/21 05/21/21 [Lantus Solostar] Spironolactone [Aldactone] 25 mg PO DAILY 05/21/21 05/21/21 Vascepa 1gm 2 gm PO BID 05/21/21 05/21/21 gemfibroziL [Lopid] 600 mg PO AC-BID 05/21/21 05/21/21 metFORMIN HCL [Glucophage] 1,000 mg PO BID 05/21/21 05/21/21 Previous Rx's Medication Instructions Recorded Diltiazem Cd [Cardizem CD] 120 mg PO DAILY #30 cap.er.24h 09/04/19 Metoprolol Tartrate [Lopressor] 50 mg PO BID #60 tab 09/04/19 Sulfamethox-Tmp 800-160Mg [Bactrim 1 each PO Q12HR #20 tab 05/21/21 Ds] Allergies Allergy/AdvReac Type Severity Reaction Status Date / Time Penicillins Allergy Rash/Hives Verified 11/04/22 14:29 Review of Systems ROS Statement: Those systems with pertinent positive or pertinent negative responses have been documented in the HPI. ROS Other: All systems not noted in ROS Statement are negative. Past Medical History Past Medical History: Diabetes Mellitus, Hyperlipidemia, Hypertension, Myocardial Infarction (VT) Additional Past Medical History / Comment(s): current umbilical hernia Last Myocardial Infarction Date:: 2010 History of Any Multi-Drug Resistant Organisms: None Reported Past Surgical History: Coronary Bypass/CABG, Heart Catheterization With Stent Additional Past Surgical History / Comment(s): recent cardiac cath, valve replacement Past Anesthesia/Blood Transfusion Reactions: No Reported Reaction Additional Past Anesthesia/Blood Transfusion Reaction / Comment(s): no surgical hx Date of Last Stent Placement:: 2010 Past Psychological History: No Psychological Hx Reported Smoking Status: Never smoker Past Alcohol Use History: None Reported Past Drug Use History: None Reported - Past Family History Mother Family Medical History: No Reported History Additional Family Medical History / Comment(s): Mother at age 72 from diabetes complications. No history of coronary artery disease. Father Family Medical History: Coronary Artery Disease (CAD), Myocardial Infarction (VT) Additional Family Medical History / Comment(s): father at age 62 from myocardial infarction with history of coronary artery disease. Brother(s) Family Medical History: Coronary Artery Disease (CAD) Additional Family Medical History / Comment(s): Patient has 2 brothers one from myocardial infarction. One brother had myocardial infarction status post 3 vessel CABG. Sister(s) Additional Family Medical History / Comment(s): Patient has 2 sisters and one has diabetes. Patient has 3 daughters and 2 sons with no major medical problems. General Exam - General Exam Comments Initial Comments: GENERAL: Patient is well-developed and well-nourished. Patient is nontoxic and well- hydrated and is in no acute distress. ENT: Neck is soft and supple. No significant lymphadenopathy is noted. Oropharynx is clear. Moist mucous membranes. Neck has full range of motion without eliciting any pain. EYES: The sclera were anicteric and conjunctiva were pink and moist. Extraocular movements were intact and pupils were equal round and reactive to light. Eyelids were unremarkable. PULMONARY: Unlabored respirations. Good breath sounds bilaterally. No audible rales rhonchi or wheezing was noted. CARDIOVASCULAR: There is a regular rate and rhythm without any murmurs gallops or rubs. ABDOMEN: Soft and nontender with normal bowel sounds. No palpable organomegaly was noted. There is no palpable pulsatile mass. SKIN: Skin is clear with no lesions or rashes and otherwise unremarkable. NEUROLOGIC: Patient is alert and oriented x3. Cranial nerves II through XII are grossly intact. Patient has slightly slurred speech. Patient has no weakness in the arm and no decreased sensation in the arm. Patient does have a little decreased plantar flexion in the left foot compared to the right. Symmetrical smile. Cerebellar exam grossly intact. MUSCULOSKELETAL: Normal extremities with adequate strength and full range of motion. LYMPHATICS: No significant lymphadenopathy is noted PSYCHIATRIC: Normal psychiatric evaluation. 6640 Course Vital Signs 11/04/22 11/04/22 11/04/22 14:14 14:30 14:45 Temperature 98.3 F Pulse Rate 88 90 86 Respiratory 18 20 20 Rate Blood Pressure 168/92 168/92 160/93 O2 Sat by Pulse 98 96 96 Oximetry 11/04/22 11/04/22 11/04/22 15:00 15:15 15:30 Temperature Pulse Rate 83 81 80 Respiratory 20 20 20 Rate Blood Pressure 153/91 126/111 161/91 O2 Sat by Pulse 96 97 97 Oximetry Medical Decision Making - Medical Decision Making Patient will not be given alteplase because the patient is vastly improving and his NIH is 2. The risks outweigh the benefits at this point I spoke with the neurointerventionalist and he was in agreement. EKG was interpreted by myself shows a sinus rhythm at 86 bpm VT interval 285 QRS is 92 QT interval 345 QTC is 38. Patient's EKG shows no ST segment elevation or depression. Was pt. sent in by a medical professional or institution (, PA, ENROUTE CONTROLLER, urgent care, hospital, or retirement...) When possible be specific @ -No Did you speak to anyone other than the patient for history (EMS, parent, family, police, friend...)? What history was obtained from this source @ -EMS gave most of the history that the family gave them.. Did you review nursing and triage notes (agree or disagree)? Why? @ -I reviewed and agree with nursing and triage notes Were old charts reviewed (outside hosp., previous admission, EMS record, old EKG, old radiological studies, urgent care reports/EKG's, retirement records)? Report findings @ -I reviewed prior charts and lab work on this patient Differential Diagnosis (chest pain, altered mental status, abdominal pain women, abdominal pain men, vaginal bleeding, weakness, fever, dyspnea, syncope, headache, dizziness, GI bleed, back pain, seizure, CVA, palpatations, mental health, musculoskeletal)? @ -Differential CVA Ischemic stroke, hemorrhagic stroke, brain tumor, atypical migraine, Wernicke's encephalopathy, seizure, multiple sclerosis, meningitis, encephalitis, hypoglycemia, Guillain-Workman, electrolytes disturbance, myasthenia gravis.... This is not meant to be an all-inclusive list EKG interpreted by me (3pts min.). @ -As above X-rays interpreted by me (1pt min.). @ -Chest x-ray shows no acute abnormality. CT interpreted by me (1pt min.). @ -CT of the head shows an area in the right occipital region that could indicate an acute infarct. CTA showed no acute abnormality. There was some narrowing on the right side of the internal carotid U/S interpreted by me (1pt. min.). @ -None done What testing was considered but not performed or refused? (CT, X-rays, U/S, labs)? Why? @ -None What meds were considered but not given or refused? Why? @ -None Did you discuss the management of the patient with other professionals (pr ofessionals i.e. , PA, ENROUTE CONTROLLER, lab, RT, psych nurse, dialysis social worker, authorization coordinator, teacher, ammunition officer, immigration case worker)? Give summary @ -I spoke with Dr. Alvarez and he did not want any PLACE this time. I spoke with the same as to hospice he agreed to admit the patient will admit the patient write admitting orders Was smoking cessation discussed for >3mins.? @ -No Was critical care preformed (if so, how long)? @ -35 minutes Were there social determinants of health that impacted care today? How? (Homelessness, low income, unemployed, alcoholism, drug addiction, transportation, low edu. Level, literacy, decrease access to med. care, correction, rehab)? @ -No Was there de-escalation of care discussed even if they declined (Discuss DNR or withdrawal of care, Hospice)? DNR status @ -No What co-morbidities impacted this encounter? (DM, HTN, Smoking, COPD, CAD, Cancer, CVA, ARF, Chemo, Hep., AIDS, mental health diagnosis, sleep apnea, morbid obesity)? @ -None Was patient admitted / discharged? Hospital course, mention meds given and route, prescriptions, significant lab abnormalities, going to OR and other pertinent info. @ -Patient's symptoms had significantly improved from the time that EMS picked him up until the time they brought him into the hospital when family arrived they stated that he no longer had any slurred speech or facial droop patient was able to move all 4 extremities with equal strength he did feel some sort of weird sensation in the arm but he can feel touch light touch and pain. It was determined that no audible Place will be given when I spoke with the neurointerventionalist. I spoke with the [facility] hospitalist. In the agreed to admit the patient admitted the patient consult the neurology. Undiagnosed new problem with uncertain prognosis? @ -No Drug Therapy requiring intensive monitoring for toxicity (Heparin, Nitro, Insulin, Cardizem)? @ -No Were any procedures done? @ -No Diagnosis/symptom? @ -CVA Acute, or Chronic, or Acute on Chronic? @ -Acute Uncomplicated (without systemic symptoms) or Complicated (systemic symptoms)? @ -Complicated Side effects of treatment? @ -No Exacerbation, Progression, or Severe Exacerbation? @ -No Poses a threat to life or bodily function? How? (Chest pain, USA, VT, pneumonia, PE, COPD, DKA, ARF, appy, cholecystitis, CVA, Diverticulitis, Homicidal, Suicidal, threat to staff... and all critical care pts) @ -Yes this could lead to significant morbidity or mortality - Lab Data Result diagrams: 11/04/22 14:38 11/04/22 14:38 Lab Results 11/04/22 11/04/22 11/04/22 Range/Units 14:15 14:38 14:38 WBC 8.7 (3.8-10.6) k/uL RBC 5.04 (4.30-5.90) m/uL Hgb 15.7 (13.0-17.5) gm/dL Hct 46.5 (39.0-53.0) % MCV 92.4 (80.0-100.0) fL MCH 31.1 (25.0-35.0) pg MCHC 33.7 (31.0-37.0) g/dL RDW 13.6 (11.5-15.5) % Plt Count 159 (150-450) k/uL MPV 10.7 Neutrophils % 67 % Lymphocytes % 22 % Monocytes % 5 % Eosinophils % 3 % Basophils % 1 % Neutrophils # 5.9 (1.3-7.7) k/uL Lymphocytes # 1.9 (1.0-4.8) k/uL Monocytes # 0.4 (0-1.0) k/uL Eosinophils # 0.2 (0-0.7) k/uL Basophils # 0.1 (0-0.2) k/uL PT 9.9 (9.0-12.0) sec INR 0.9 (<1.2) APTT 22.3 (22.0-30.0) sec Sodium (137-145) mmol/L Potassium (3.5-5.1) mmol/L Chloride (98-107) mmol/L Carbon Dioxide (22-30) mmol/L Anion Gap mmol/L BUN (9-20) mg/dL Creatinine (0.66-1.25) mg/dL Est GFR (CKD-EPI)AfAm (>60 ml/min/1.73 sqM) Est GFR (CKD-EPI)NonAf (>60 ml/min/1.73 sqM) Glucose (74-99) mg/dL POC Glucose (mg/dL) 278 H (70-110) mg/dL POC Glu Pump Servicer Supervisor ID Achatz, Lili Calcium (8.4-10.2) mg/dL Total Bilirubin (0.2-1.3) mg/dL AST (17-59) U/L ALT (4-49) U/L Alkaline Phosphatase (38-126) U/L Creatine Kinase (55-170) U/L Troponin I (0.000-0.034) ng/mL Total Protein (6.3-8.2) g/dL Albumin (3.5-5.0) g/dL 11/04/22 11/04/22 Range/Units 14:38 14:38 WBC (3.8-10.6) k/uL RBC (4.30-5.90) m/uL Hgb (13.0-17.5) gm/dL Hct (39.0-53.0) % MCV (80.0-100.0) fL MCH (25.0-35.0) pg MCHC (31.0-37.0) g/dL RDW (11.5-15.5) % Plt Count (150-450) k/uL MPV Neutrophils % % Lymphocytes % % Monocytes % % Eosinophils % % Basophils % % Neutrophils # (1.3-7.7) k/uL Lymphocytes # (1.0-4.8) k/uL Monocytes # (0-1.0) k/uL Eosinophils # (0-0.7) k/uL Basophils # (0-0.2) k/uL PT (9.0-12.0) sec INR (<1.2) APTT (22.0-30.0) sec Sodium 135 L (137-145) mmol/L Potassium 4.3 (3.5-5.1) mmol/L Chloride 106 (98-107) mmol/L Carbon Dioxide 24 (22-30) mmol/L Anion Gap 5 mmol/L BUN 8 L (9-20) mg/dL Creatinine 0.67 (0.66-1.25) mg/dL Est GFR (CKD-EPI)AfAm >90 (>60 ml/min/1.73 sqM) Est GFR (CKD-EPI)NonAf >90 (>60 ml/min/1.73 sqM) Glucose 252 H (74-99) mg/dL POC Glucose (mg/dL) (70-110) mg/dL POC Glu Pump Servicer Supervisor ID Calcium 8.0 L (8.4-10.2) mg/dL Total Bilirubin 0.4 (0.2-1.3) mg/dL AST 17 (17-59) U/L ALT 13 (4-49) U/L Alkaline Phosphatase 95 (38-126) U/L Creatine Kinase 38 L (55-170) U/L Troponin I <0.012 (0.000-0.034) ng/mL Total Protein 5.8 L (6.3-8.2) g/dL Albumin 3.0 L (3.5-5.0) g/dL Critical Care Time Critical Care Time: Yes Total Critical Care Time: 35 Disposition Clinical Impression: Cerebrovascular accident (CVA) Disposition: ADMITTED IP TO THIS HOSP Referrals: Rickie Reyes MD [Primary Care Provider] - 1-2 days Time of Disposition: 16:38
--- NOTE | 2022-11-04 14:45 | CT ---
EXAMINATION TYPE: CT brain wo con for TPA DATE OF EXAM: 11/04/2022 COMPARISON: None HISTORY: Neuro deficits CT DLP: 1158.[address] of the brain was performed. The ventricles, basal cisterns and sulci overlying the cerebral convexities demonstrate mild enlargem ent. Small area of decreased attenuation within the right occipital lobe could reflect an area of acu te ischemia measuring 1.4 x 1.3 cm. There is no evidence for intracranial hemorrhage or sulcal effacement. There is decreased attenuation about the periventricular white matter and deep white matter of both c erebral hemispheres, compatible with chronic small vessel ischemia. Differential diagnosis does inclu de demyelination. No mass effects are seen.No midline shift. Osseous calvarium is intact. If symptoms persist consider MRI. IMPRESSION: 1. Small area of decreased attenuation within the right occipital lobe could reflect an area of acute ischemia measuring 1.4 x 1.3 cm. No evidence for acute intracranial hemorrhage.
--- NOTE | 2022-11-04 14:48 | CT ---
EXAMINATION TYPE: CT angio head neck DATE OF EXAM: 11/04/2022 COMPARISON: none HISTORY: Neuro deficits. CT DLP: 565.2 mGycm CONTRAST: Performed with IV Contrast, patient injected with 65ml mL of Isovue 370. Combination Contrast CTA cervical carotids and [place] CTA cervical carotids with 3-D recons truction Contrast CTA of the cervical carotids was performed 3-D reconstruction imaging obtained at a separate workstation. Right carotid system: Mild plaque is seen of the right common carotid artery. There is moderate calc ific plaque also noted at the carotid bulb and proximal ICA. Estimated diameter reduction of 80-85%. ECA is patent. Right vertebral artery appears unremarkable. Left carotid system: Mild plaque is seen of the left common carotid artery. There is moderate calcif ic plaque also noted at the carotid bulb and proximal ICA. Estimated diameter reduction of approxima tely 85%. ECA is patent. Left vertebral artery appears unremarkable. IMPRESSION: 1. Right ICA demonstrates estimated diameter reduction of 80-85% with the left sided internal carotid artery estimated at 85%. CTA [place] with 3-D reconstruction Contrast CTA of the [place] was performed 3-D reconstruction imaging obtained at a separate workstation. Vertebrobasilar system as well as intracranial portions of the internal carotid arteries and their ma louise tributaries are patent. I do not see evidence for sizable aneurysm or vascular malformation. Pl ease note MRI provides greater sensitivity and specificity. Visualized brain appears grossly unremar kable. IMPRESSION: 1. No siginificant abnormality. NASCET criteria was used in interpretation of this exam?
[2022-11-04 15:08] LABS: Basophils # (A) 0.1 k/uL (0-0.2); Basophils % (A) 1 %; Eosinophils # (A) 0.2 k/uL (0-0.7); Eosinophils % (A) 3 %; HCT 46.5 % (39.0-53.0); HGB 15.7 gm/dL (13.0-17.5); Lymphocytes # (A) 1.9 k/uL (1.0-4.8); Lymphocytes % (A) 22 %; MCH 31.1 pg (25.0-35.0); MCHC 33.7 g/dL (31.0-37.0); MCV 92.4 fL (80.0-100.0); Mean Platelet Volume 10.7; Monocytes # (A) 0.4 k/uL (0-1.0); Monocytes % (A) 5 %; Neutrophils # (A) 5.9 k/uL (1.3-7.7); Neutrophils % (A) 67 %; Platelet Count 159 k/uL (150-450); RBC 5.04 m/uL (4.30-5.90); RDW 13.6 % (11.5-15.5); WBC 8.7 k/uL (3.8-10.6)
[2022-11-04 15:16] LABS: INR 0.9 (<1.2); Partial Thromboplastin Time 22.3 sec (22.0-30.0); Prothrombin Time 9.9 sec (9.0-12.0)
--- NOTE | 2022-11-04 15:17 | XR ---
EXAMINATION TYPE: XR chest 2V DATE OF EXAM: 11/04/2022 COMPARISON: 09/24/2019 INDICATION: AMS TECHNIQUE: Frontal and lateral views of the chest are obtained. FINDINGS: The heart size is normal. The pulmonary vasculature is normal. There is infiltrate silhouetting the left heart border. Correlate for lingular atelectasis or pneumon ia.. Sternotomy wires are in the midline. IMPRESSION: 1. Lingular atelectasis or pneumonia
[2022-11-04] MEDS ORDERED: ASPIRIN 325 MG TAB PO STA (15:39)
[2022-11-04] MEDS ORDERED: ACETAMINOPHEN TAB 325 MG TAB PO STA (15:39)
[2022-11-04 15:49] LABS: ALT 13 U/L (4-49); AST 17 U/L (17-59); African American GFR (CKD) >90 (>60 ml/min/1.73 sqM); Alkaline Phosphatase 95 U/L (38-126); Anion Gap 5 mmol/L; Blood Urea Nitrogen 8 mg/dL (9-20); Carbon Dioxide 24 mmol/L (22-30); Chloride 106 mmol/L (98-107); Creatine Kinase 38 U/L (55-170); Glucose 252 mg/dL (74-99); Non-African American GFR(CKD) >90 (>60 ml/min/1.73 sqM); Potassium 4.3 mmol/L (3.5-5.1); Sodium 135 mmol/L (137-145); Total Bilirubin 0.4 mg/dL (0.2-1.3); Total Protein 5.8 g/dL (6.3-8.2)
[2022-11-04] MEDS: ATORVASTATIN 80 MG TAB PO SCH (20:56)
[2022-11-04 20:59] LABS: Glucose,Whole Blood 285 mg/dL (70-110)
[2022-11-05] MEDS: ACETAMINOPHEN TAB 325 MG TAB PO PRN ×2 (00:31→08:02)
[2022-11-05] MEDS: CLOPIDOGREL 75 MG TAB PO SCH (08:02)
[2022-11-05] MEDS: ASPIRIN 325 MG TAB PO SCH (08:02)
[2022-11-05 11:17] LABS: HDL Cholesterol 34.7 mg/dL (40.00-60.00)
[2022-11-05 11:22] LABS: Glucose,Whole Blood 250 mg/dL (70-110)
[2022-11-05 11:29] LABS: Chol/HDL Ratio 9.63 Ratio
--- NOTE | 2022-11-05 11:42 | P.CNNES ---
History of Present Illness Consult date: 11/05/22 Requesting physician: Richardson Ash Reason for Consult: cva History of Present Illness: This is a 67-year-old gentleman was in the emergency department because of slurred speech and left facial weakness and left-sided weakness. Patient stated that yesterday around between 10 and 11:00 in the morning he felt his left arm was weak as well as he felt numb and he was having difficulty walking prior to that he was doing well. He denies any history of stroke or TIA. His notified that the EMS according to the ED note the patient was confused. And had slurring of the speech and left facial droop left arm weakness and leg weakness. On presentation he had a stroke is very mild right sided headache. Patient stated that he is a on aspirin but does not take it on a regular basis he is on aspirin 325 daily. He is on any anticoagulation. He feels back to baseline. Patient does have underlying diabetes mellitus. He smokes cigars about 3-4 a day. It seems that the patient symptoms was improving while he was in the ED but he has decreased sensation in the left arm. The ED team contacted stroke attending (Dr. Phillip) and seems no IV TPA since the patient symptoms are improving and the risks outweigh the benefit. Some other workup during his hospital visit consisted of: Lipid panels triglyceride of 776, cholesterol is 334, LDLs 188. Initial serum glucose on presentation is 250 to the POC glucose is 278. CT of the head is reported as small area of decreased attenuation within the right occipital lobe could reflect area of acute ischemia measuring 1.41.3 cm. No evidence for acute intracranial hemorrhage. I personally reviewed the CT and agree with report. CT angiography of the head and neck was reported as right ICA demonstrate estimated diameter reduction 80-85% stenosis, while left is 85%. Review of Systems Review of system: The 12 point system was reviewed and apparent positive and negative per HPI. Past Medical History Past Medical History: Diabetes Mellitus, Hyperlipidemia, Hypertension, Myocardial Infarction ([place]) Additional Past Medical History / Comment(s): current umbilical hernia Last Myocardial Infarction Date:: 2010 History of Any Multi-Drug Resistant Organisms: None Reported Past Surgical History: Coronary Bypass/CABG, Heart Catheterization With Stent Additional Past Surgical History / Comment(s): recent cardiac cath, valve replacement Past Anesthesia/Blood Transfusion Reactions: No Reported Reaction Additional Past Anesthesia/Blood Transfusion Reaction / Comment(s): no surgical hx Date of Last Stent Placement:: 2010 Past Psychological History: No Psychological Hx Reported Smoking Status: Never smoker Past Alcohol Use History: None Reported Additional Past Alcohol Use History / Comment(s): The patient smokes cigars off and on since age 17. No alcohol or illicit drug use. Past Drug Use History: None Reported - Past Family History Mother Family Medical History: No Reported History Additional Family Medical History / Comment(s): Mother at age 72 from d iabetes complications. No history of coronary artery disease. Father Family Medical History: Coronary Artery Disease (CAD), Myocardial Infarction ([place]) Additional Family Medical History / Comment(s): father at age 62 from myocardial infarction with history of coronary artery disease. Brother(s) Family Medical History: Coronary Artery Disease (CAD) Additional Family Medical History / Comment(s): Patient has 2 brothers one from myocardial infarction. One brother had myocardial infarction status post 3 vessel CABG. Sister(s) Additional Family Medical History / Comment(s): Patient has 2 sisters and one has diabetes. Patient has 3 daughters and 2 sons with no major medical problems. Medications and Allergies Home Medications Medication Instructions Recorded Confirmed Type Insulin Aspart [Insulin Aspart 7 unit SQ AC-TID 11/04/22 11/04/22 History Flexpen] Allergies Allergy/AdvReac Type Severity Reaction Status Date / Time Penicillins Allergy Rash/Hives Verified 11/04/22 16:59 Physical Examination - Vital Signs Vital Signs: Vital Signs Temp Pulse Pulse Resp BP BP Pulse Ox 11/05/22 08:00 80 14 149/90 96 11/05/22 03:46 89 16 144/85 92 L 11/05/22 02:00 16 11/04/22 23:35 86 16 153/86 100 11/04/22 20:33 77 16 140/85 98 11/04/22 19:25 84 20 117/57 96 11/04/22 15:30 80 20 161/91 97 11/04/22 15:15 81 20 126/111 97 11/04/22 15:00 83 20 153/91 96 11/04/22 14:45 86 20 160/93 96 11/04/22 14:30 90 20 168/92 96 11/04/22 14:14 98.3 F 88 18 168/92 98 Intake and Output 11/04/22 11/05/22 11/05/22 22:59 06:59 14:59 Other: Voiding Method Toilet # Voids 1 Weight 77.111 kg GENERAL: The patient is lying in bed and is not in acute distress. CHEST: The heart rate is regular rate rhythm. No murmurs to auscultation. LUNG: Clear to auscultation bilaterally no wheezing noted throughout. Not labored breathing. ABDOMEN/GI: Bowel sounds present in all 4 quadrants. No tenderness to palpation throughout. NEUROLOGICAL: Higher mental function: The patient is awake, alert, oriented to self, place and time. Patient is following commands. No aphasia and no neglect. Cranial nerves: The pupils are round, equal and reactive to light and accommodation. Visual bishop are full to confrontation throughout. Extraocular movement is intact no nystagmus is noted. Facial sensation is normal to touch throughout. The facial strength is normal throughout. Hearing is normal bilaterally to hand rub. Tongue is midline and moved [id number] without any difficulty. No dysarthria is noted. Shoulder shrug is normal bilaterally. Motor: The strength is 5 over 5 throughout. Normal tone and bulk. Cerebellum: Normal finger to nose bilaterally. Sensation: Sensation is normal to touch throughout. Reflexes (right/left): 2+ throughout. Plantars are downgoing bilaterally. Results - Laboratory Findings CBC and BMP: 11/04/22 14:38 11/04/22 14:38 Abnormal Lab Findings: Abnormal Labs 11/04/22 11/04/22 11/04/22 14:15 14:38 14:38 Sodium 135 L BUN 8 L Glucose 252 H POC Glucose (mg/dL) 278 H Calcium 8.0 L Creatine Kinase 38 L Total Protein 5.8 L Albumin 3.0 L Triglycerides 776.00 H Cholesterol 334.00 H LDL Cholesterol Direct 188.00 H HDL Cholesterol 34.70 L 11/04/22 11/05/22 20:57 11:20 Sodium BUN Glucose POC Glucose (mg/dL) 285 H 250 H Calcium Creatine Kinase Total Protein Albumin Triglycerides Cholesterol LDL Cholesterol Direct HDL Cholesterol Assessment and Plan Assessment: This is a 67-year-old gentleman who presented because of the left facial droop, left-sided weakness and slurred speech. His symptoms has improved. Acute ischemic stroke (on CT has hypodenisity over the right occipital) Seems probable due to symptomatic Right ICA Significant bilateral carotid stenosis: Right ICA is 80-85% while left is 85% per CTA Dyslipidemia Diabetes mellitus Hypertension History of coronary artery disease status post stents as well as CABG Tobacco use Plan: I ordered MRI of the brain without, carotid duplex. I consulted vascular surgery team for the significant carotid stenosis. She started on aspirin 325 daily as well as Plavix 75 mg daily (patient was on sporadic ASA). Patient to remain on dual antiplatelets for now. Continue Lipitor 80 mg daily at bedtime for secondary stroke prophylaxis. Recommend LDL goal to be less than 70 Consider fibroids especially that he has a hypertriglyceridemia Continue neuro checks Cardiac monitoring PT, OT and [employer] are consulted Patient was counseled on the tobacco/cigar cessation. We'll defer the rest of the medical management the primary team DVT prophylaxis started the patient on subcu heparin 5000 units every hours The plan was discussed with the patient. Thank you for the consultation. Time with Patient: Greater than 30
--- NOTE | 2022-11-05 11:44 | P.HPIM ---
History of Present Illness This is a pleasant 67 years old male with past medical history of Diabetes Mellitus, Hyperlipidemia, Hypertension, , Coronary Bypass/CABG, Heart Catheterization With Stent Patient presents because of slurred speech and left-sided weakness which started yesterday when he was in the supermarket [employer], he drove home and he was still feeling well and he could not walk, he was also feeling some headache on the right side. This morning patient states that his left-sided weakness is seen. Slurred speech is looks improved, still looks abnormal but as per patient and daughter at bedside this is his baseline. His headache is also improved and currently only mild headache around the right eye however patient denies any blurred vision or double vision to me. Remarkably patient says that he was noncompliant or adherent to his medication. Patient states that he supposed to be on insulin and he was not taking it. Daughter at bedside states that they just found out this morning patient was not taking his blood pressure pill as well which the patient confirms to me. Also he smokes about 4 cigars per day and he was counseled to quit and he agrees but he declines nicotine patch. No alcohol or illicit drug. Patient denies chest pain, no coughing no dyspnea. No abdominal pain vomiting or diarrhea. No urinary complaints. No dizziness. Vitas looks stable, blood pressure is slightly elevated and patient is afebrile. Labs showing unremarkable CBC, INR, BMP and liver enzymes. Glucose is elevated more than 250. Troponin Is Negative. Coronavirus Not Detected EKG, normal sinus rhythm with no significant ST-T changes Chest x-ray: Lingular atelectasis or pneumonia by a radiologist CT of the brain: Small area of decreased attenuation within the right occipital lobe, could reflex area of acute ischemia measuring 1.4 x 1.3 cm a, with no evidence of hemorrhage CTA of the head and neck: Right ICA demonstrates stenosis 80-85% and left internal carotid artery 85% Review of Systems Review of systems CONSTITUTIONAL: No fever, no malaise, no fatigue. HEENT: No recent visual problems or hearing problems. Denied any sore throat. CARDIOVASCULAR: No orthopnea, PND, no palpitations, no syncope. PULMONARY: No shortness of breath, no cough, no hemoptysis. GASTROINTESTINAL: No diarrhea, no nausea, no vomiting, no abdominal pain. Normoactive bowel sounds. -NEUROLOGICAL: as above HEMATOLOGICAL: Denies any bleeding or petechiae. GENITOURINARY: Denies any burning micturition, frequency, or urgency. MUSCULOSKELETAL/RHEUMATOLOGICAL: Denies any joint pain, swelling, or any muscle pain. ENDOCRINE: Denies any polyuria or polydipsia. Past Medical History Past Medical History: Diabetes Mellitus, Hyperlipidemia, Hypertension, Myocardial Infarction ([place]) Additional Past Medical History / Comment(s): current umbilical hernia Last Myocardial Infarction Date:: 2010 History of Any Multi-Drug Resistant Organisms: None Reported Past Surgical History: Coronary Bypass/CABG, Heart Catheterization With Stent Additional Past Surgical History / Comment(s): recent cardiac cath, valve replacement Past Anesthesia/Blood Transfusion Reactions: No Reported Reaction Additional Past Anesthesia/Blood Transfusion Reaction / Comment(s): no surgical hx Date of Last Stent Placement:: 2010 Past Psychological History: No Psychological Hx Reported Smoking Status: Never smoker Past Alcohol Use History: None Reported Additional Past Alcohol Use History / Comment(s): The patient smokes cigars off and on since age 17. No alcohol or illicit drug use. Past Drug Use History: None Reported - Past Family History Mother Family Medical History: No Reported History Additional Family Medical History / Comment(s): Mother at age 72 from diabetes complications. No history of coronary artery disease. Father Family Medical History: Coronary Artery Disease (CAD), Myocardial Infarction ([place]) Additional Family Medical History / Comment(s): father at age 62 from myocardial infarction with history of coronary artery disease. Brother(s) Family Medical History: Coronary Artery Disease (CAD) Additional Family Medical History / Comment(s): Patient has 2 brothers one from myocardial infarction. One brother had myocardial infarction status post 3 vessel CABG. Sister(s) Additional Family Medical History / Comment(s): Patient has 2 sisters and one has diabetes. Patient has 3 daughters and 2 sons with no major medical problems. Medications and Allergies Home Medications Medication Instructions Recorded Confirmed Type Insulin Aspart [Insulin Aspart 7 unit SQ AC-TID 11/04/22 11/04/22 History Flexpen] Allergies Allergy/AdvReac Type Severity Reaction Status Date / Time Penicillins Allergy Rash/Hives Verified 11/04/22 16:59 Physical Exam Vitals: Vital Signs Temp Pulse Pulse Resp BP BP Pulse Ox 11/05/22 08:00 80 14 149/90 96 11/05/22 03:46 89 16 144/85 92 L 11/05/22 02:00 16 11/04/22 23:35 86 16 153/86 100 11/04/22 20:33 77 16 140/85 98 11/04/22 19:25 84 20 117/57 96 11/04/22 15:30 80 20 161/91 97 11/04/22 15:15 81 20 126/111 97 11/04/22 15:00 83 20 153/91 96 11/04/22 14:45 86 20 160/93 96 11/04/22 14:30 90 20 168/92 96 11/04/22 14:14 98.3 F 88 18 168/92 98 Intake and Output 11/04/22 11/05/22 11/05/22 22:59 06:59 14:59 Other: Voiding Method Toilet # Voids 1 Weight 77.111 kg GENERAL: The patient is alert and oriented x3, not in any acute distress. Well developed, well nourished. HEENT: Pupils are round and equally reacting to light. EOMI. No scleral icterus. No conjunctival pallor. Normocephalic, atraumatic. No pharyngeal erythema. No thyromegaly. CARDIOVASCULAR: S1 and S2 present. No murmurs, rubs, or gallops. PULMONARY: Chest is clear to auscultation, no wheezing or crackles. -ABDOMEN: Soft, nontender, nondistended, normoactive bowel sounds. No palpable organomegaly. Umbilical hernia, symptomatic, confirmed with patient MUSCULOSKELETAL: No joint swelling or deformity. EXTREMITIES: No cyanosis, clubbing, or pedal edema. -NEUROLOGICAL: Cranial nerves are grossly intact.. Left hemiparesis. Sensation is intact on the right side. Meningeal signs are absent SKIN: No rashes. no petechiae. Results CBC & Chem 7: 11/04/22 14:38 11/04/22 14:38 Labs: Abnormal Lab Results - Last 24 Hours (Table) 11/04/22 11/04/22 11/04/22 Range/Units 14:15 14:38 20:57 Sodium 135 L (137-145) mmol/L BUN 8 L (9-20) mg/dL Glucose 252 H (74-99) mg/dL POC Glucose (mg/dL) 278 H 285 H (70-110) mg/dL Calcium 8.0 L (8.4-10.2) mg/dL Creatine Kinase 38 L (55-170) U/L Total Protein 5.8 L (6.3-8.2) g/dL Albumin 3.0 L (3.5-5.0) g/dL Thrombosis Risk Factor Assmnt - Choose All That Apply Any of the Below Risk Factors Present?: Yes Each Factor Represents 1 point: Medical pt on bed rest Each Risk Factor Represents 2 Points: Age 61-74 years Thrombosis Risk Factor Assessment Total Risk Factor Score: 3 Thrombosis Risk Factor Assessment Level: Moderate Risk Assessment and Plan Assessment: Acute stroke with left hemiparesis, confusion and slurred speech, improving Bilateral internal carotid artery stenosis about 80-85% Diabetes mellitus with hyperglycemia, present on admission Hypertension, mildly uncontrolled on admission Non-compliance and non-adherence to his medication History of coronary artery disease status post CABG and stent Hyperlipidemia Atelectasis Plan: Continue with current antiplatelet therapy of aspirin and plavix and as per recommendation of neurologist Follow-up on MRI and carotid duplex Neurology consult Vascular surgery consult Discussed with the daughter at bedside and she is going to bring most of his medication, discussed with staff as well Labs and medication were reviewed.. Continue same treatment. Continue with symptomatic treatment. Resume home medication. Monitor labs and vitals. DVT and GI prophylaxis. Further recommendations as per clinical course of the patient DVT prophylaxis: Subcutaneous heparin GI Prophylaxis: Pepcid PT/OT: Pending Prognosis is guarded
--- NOTE | 2022-11-05 11:55 | P.GSCN ---
History of Present Illness Consult date: 11/05/22 Reason for Consult: Stroke Requesting physician: Jayce Coffey History of present illness: 67-year-old male patient who presented to the emergency department yesterday afternoon with complaints of altered mental status changes, slurred speech, with left facial droop and left upper and lower extremity weakness. Patient has a past medical history including diabetes mellitus, hyperlipidemia, hypertension, [place] status post stent and CABG and valve replacement, history of previous smoker, occasionally smokes cigar. Patient states he doesn't really recall what symptoms he had yesterday. He does believe that he may pass some slurred speech possible facial droop he does not recall if he had any extremity weakness. Sym ptoms started yesterday morning. Apparently patient has not been taking his medications as prescribed, he states due to "laziness" no previous history of stroke. States his CABG was 3 years ago. At that time he had a carotid duplex on 08/13/2019 that reported moderate arthrosclerotic changes bilaterally without hemodynamically significant stenosis in either internal carotid artery. Patient had workup in the emergency department for CVA. Vascular surgery was consulted for carotid stenosis. He currently denies any weakness in bilateral upper or lower extremities, and he denies any slurred speech or difficulty speaking, no difficulty swallowing. No visual changes. He is alert and oriented 3. He denies any shortness of breath or chest pain, no abdominal pain, nausea or vomiting. He denies any recent fevers or chills. Patient was started on aspirin 325 mg daily, atorvastatin 80 mg at bedtime and Plavix [address] brain without contrast reported small area of decreased attenuation within the right occipital lobe could reflect an area of acute ischemia measuring 1.4 x 1.3 cm. No evidence for acute intracranial hemorrhage. CT angiogram head and neck reported right ICA demonstrates estimated diameter reduction of 80-85% with left-sided internal carotid artery estimated at 85%. Had no significant abnormality. Review of Systems A 14 point review systems was completed all pertinent positives and negatives as stated in the HPI. Past Medical History Past Medical History: Diabetes Mellitus, Hyperlipidemia, Hypertension, Myocardial Infarction ([place]) Additional Past Medical History / Comment(s): current umbilical hernia Last Myocardial Infarction Date:: 2010 History of Any Multi-Drug Resistant Organisms: None Reported Past Surgical History: Coronary Bypass/CABG, Heart Catheterization With Stent Additional Past Surgical History / Comment(s): recent cardiac cath, valve replacement Past Anesthesia/Blood Transfusion Reactions: No Reported Reaction Additional Past Anesthesia/Blood Transfusion Reaction / Comm: no surgical hx Date of Last Stent Placement:: 2010 Past Psychological History: No Psychological Hx Reported Smoking Status: Never smoker Past Alcohol Use History: None Reported Additional Past Alcohol Use History / Comment(s): The patient smokes cigars off and on since age 17. No alcohol or illicit drug use. Past Drug Use History: None Reported - Past Family History Mother Family Medical History: No Reported History Additional Family Medical History / Comment(s): Mother at age 72 from diabetes complications. No history of coronary artery disease. Father Family Medical History: Coronary Artery Disease (CAD), Myocardial Infarction ([place]) Additional Family Medical History / Comment(s): father at age 62 from myocardial infarction with history of coronary artery disease. Brother(s) Family Medical History: Coronary Artery Disease (CAD) Additional Family Medical History / Comment(s): Patient has 2 brothers one from myocardial infarction. One brother had myocardial infarction status post 3 vessel CABG. Sister(s) Additional Family Medical History / Comment(s): Patient has 2 sisters and one has diabetes. Patient has 3 daughters and 2 sons with no major medical problems. Medications and Allergies Home Medications Medication Instructions Recorded Confirmed Type Insulin Aspart [Insulin Aspart 7 unit SQ AC-TID 11/04/22 11/04/22 History Flexpen] Allergies Allergy/AdvReac Type Severity Reaction Status Date / Time Penicillins Allergy Rash/Hives Verified 11/04/22 16:59 Surgical - Exam Vital Signs Temp Pulse Resp BP Pulse Ox 98.3 F 88 18 168/92 98 11/04/22 14:14 11/04/22 14:14 11/04/22 14:14 11/04/22 14:14 11/04/22 14:14 General appearance: The patient is alert, oriented, appears in no acute distress. HET: Head is normocephalic and atraumatic. Pupils are equal and reactive. Neck: Supple. Trachea midline. No audible carotid bruit. Heart: Regular. Lungs: Equal expansion, normal respiratory effort. Bilateral wheezes. Abdomen: Soft, nontender, nondistended. Extremities: Normal skin color and turgor. No cyanosis, rash, ulceration, clubbing, or edema. Palpable +2 radial pulses bilaterally. Palpable bilateral +2 DP pulses. Neurological: Patient may have slight slurred speech, not sure if this is his baseline. Patient has facial symmetry, Tongue protrudes midline, he answers questions appropriately and follows commands. Good strength and tone bilateral upper and lower extremities. Results - Labs 11/04/22 14:38 11/04/22 14:38 Abnormal Lab Results - Last 24 Hours (Table) 11/04/22 11/04/22 11/04/22 Range/Units 14:15 14:38 20:57 Sodium 135 L (137-145) mmol/L BUN 8 L (9-20) mg/dL Glucose 252 H (74-99) mg/dL POC Glucose (mg/dL) 278 H 285 H (70-110) mg/dL Calcium 8.0 L (8.4-10.2) mg/dL Creatine Kinase 38 L (55-170) U/L Total Protein 5.8 L (6.3-8.2) g/dL Albumin 3.0 L (3.5-5.0) g/dL Diabetes panel 11/04/22 Range/Units 14:38 Sodium 135 L (137-145) mmol/L Potassium 4.3 (3.5-5.1) mmol/L Chloride 106 (98-107) mmol/L Carbon Dioxide 24 (22-30) mmol/L BUN 8 L (9-20) mg/dL Creatinine 0.67 (0.66-1.25) mg/dL Glucose 252 H (74-99) mg/dL Calcium 8.0 L (8.4-10.2) mg/dL AST 17 (17-59) U/L ALT 13 (4-49) U/L Alkaline Phosphatase 95 (38-126) U/L Total Protein 5.8 L (6.3-8.2) g/dL Albumin 3.0 L (3.5-5.0) g/dL Calcium panel 11/04/22 Range/Units 14:38 Calcium 8.0 L (8.4-10.2) mg/dL Albumin 3.0 L (3.5-5.0) g/dL Pituitary panel 11/04/22 Range/Units 14:38 Sodium 135 L (137-145) mmol/L Potassium 4.3 (3.5-5.1) mmol/L Chloride 106 (98-107) mmol/L Carbon Dioxide 24 (22-30) mmol/L BUN 8 L (9-20) mg/dL Creatinine 0.67 (0.66-1.25) mg/dL Glucose 252 H (74-99) mg/dL Calcium 8.0 L (8.4-10.2) mg/dL Adrenal panel 11/04/22 Range/Units 14:38 Sodium 135 L (137-145) mmol/L Potassium 4.3 (3.5-5.1) mmol/L Chloride 106 (98-107) mmol/L Carbon Dioxide 24 (22-30) mmol/L BUN 8 L (9-20) mg/dL Creatinine 0.67 (0.66-1.25) mg/dL Glucose 252 H (74-99) mg/dL Calcium 8.0 L (8.4-10.2) mg/dL Total Bilirubin 0.4 (0.2-1.3) mg/dL AST 17 (17-59) U/L ALT 13 (4-49) U/L Alkaline Phosphatase 95 (38-126) U/L Total Protein 5.8 L (6.3-8.2) g/dL Albumin 3.0 L (3.5-5.0) g/dL Assessment and Plan Assessment: 1. Probable acute ischemic stroke affecting right occipital lobe with symptoms of expressive dysphasia, left facial droop and left upper and lower extremity weakness 2. Severe bilateral ICA stenosis per CT angiogram report 3. Noncompliant with medications 4. Diabetes mellitus 5. Coronary artery disease status post CABG and stent 6. Hypertension 7. Hyperlipidemia 8. Former smoker Plan: 1. Continue with aspirin, Plavix and statin 2. Speech, PT and OT on consult 3. Carotid duplex, echocardiogram and MRI of the brain ordered by neurology. Currently pending 4. Continue with recommendations from neurology 5. Medical management per primary medical team 6. Further recommendations forthcoming per vascular surgeon Thank you for this consultation, we will continue to follow. The impression and plan of care has been dictated as directed. I performed a history and examination of this patient, discussed the same with the dictator. I agree with the dictator's note ,documented as a scribe. Any additional findings or plans will be noted.
--- NOTE | 2022-11-05 15:07 | US ---
EXAMINATION TYPE: US carotid duplex BILAT DATE OF EXAM: 11/05/2022 COMPARISON: NONE CLINICAL HISTORY: stroke. carotid stenosis. TECHNIQUE: Carotid duplex ultrasound examination. Indirect Doppler criteria was utilized. FINDINGS: EXAM MEASUREMENTS: RIGHT: Peak Systolic Velocity (PSV) cm/sec ----- Right CCA: 66.2 ----- Right ICA: 107.3 ----- Right ECA: 136.2 ICA/CCA ratio: 1.6 RIGHT: End Diastole cm/sec ----- Right CCA: 13.0 ----- Right ICA: 27.0 ----- Right ECA: 18.3 LEFT: Peak Systolic Velocity (PSV) cm/sec ----- Left CCA: 71.8 ----- Left ICA: 150.7 ----- Left ECA: 154.9 ICA/CCA ratio: 2.1 LEFT: End Diastole cm/sec ----- Left CCA: 13.6 ----- Left ICA: 37.6 ----- Left ECA: 17.0 VERTEBRALS (direction of flow): Right Vertebral: Antegrade Left Vertebral: Antegrade Rhythm: Normal TAG AND LABEL CUTTER NOTES: Heterogeneous plaque bilaterally with increased velocities at left proximal ICA IMPRESSION: 1. 50-69% stenosis of the right carotid bifurcation by peak systolic velocity and ratio. 2. Less than 50% stenosis of the left carotid bifurcation Criteria for Assigning % of Stenosis / Diameter reduction (Estimation based on the indirect measurements of the internal carotid artery velocities (ICA PSV). 1. Normal (no stenosis)=ICA PSV < 125 cm/s: ratio < 2.0: ICA EDV<40 cm/s. 2. Less than 50% stenosis=ICA PSV < 125 cm/s: ratio < 2.0: ICA EDV<40 cm/s. 3. 50 to 69% stenosis=ICA PSV of 125 to 230 cm/s: ration 2.0 ? 4.0: ICA EDV 40-100 cm/s. 4. Greater than 70% stenosis to near occlusion= ICA PSV > 230 cm/s: ratio > 4.0: ICA EDV > 100 cm/s. 5. Near occlusion= ICA PSV velocities may be low or undetectable: variable ratio and ICA EDV. 6. Total occlusion=unable to detect flow.
[2022-11-05 16:35] LABS: Glucose,Whole Blood 315 mg/dL (70-110)
[2022-11-05] MEDS ORDERED: DEXTROSE 50% SYRINGE 50 ML IVP PRN ×2 (16:57)
--- NOTE | 2022-11-05 17:29 | MR ---
EXAMINATION TYPE: MR brain wo con DATE OF EXAM: 11/05/2022 5:20 PM COMPARISON: 11/04/2022. CLINICAL INDICATION:Male, 67 years old with history of stroke. left facial droop, arm weakness; Stro ke. Left facial droop, arm weakness TECHNIQUE: Multi planar, multi sequence imaging was performed through the brain including: T1, T2, In version recovery, Diffusion weighted imaging, and gradient echo imaging. No gadolinium was given. FINDINGS: Scattered foci within the right occipital lobe restricted diffusion involving the cortex other larger areas also present and involve predominantly the cortex. Additional focus of restricted diffusion on series 303 image 152 involving the left hernandez radiata. The ventricular system, and cisterns appear unremarkable. Scattered foci of high T2 signal intensity are seen within the periventricular white m atter. Midline structures show no abnormality. Diffusion-weighted imaging shows no evidence additiona l of restricted diffusion. The susceptibility weighted images do not reveal any evidence for micro-he morrhage. The bone marrow signal is within normal limits. Paranasal sinuses and mastoid air cells: No significant paranasal sinus disease. Visualized orbits: Orbital contents are intact. IMPRESSION: 1. Acute/subacute CVA involving the right occipital lobe with 2 larger confluent areas probably invo lving the cortex as well as other punctate foci also present scattered throughout the right occipital lobe. As well as acute/subacute left hernandez radiata CVA. Given multiple vascular distribution corre late for embolic phenomenon. 2. Nonspecific white matter changes, likely secondary to small vessel ischemic disease.
[2022-11-05] MEDS: FENOFIBRATE 160 MG TAB PO SCH (18:06)
[2022-11-05] MEDS: HEPARIN SODIUM,PORCINE/PF 5,000 UNIT/0.5 ML SYRINGE SQ SCH ×2 (18:06→23:30)
[2022-11-05] MEDS: INSULIN ASPART (NovoLOG) 100 UNIT/ML VIAL SQ SCH ×2 (18:07→20:48)
[2022-11-05 20:02] LABS: Glucose,Whole Blood 246 mg/dL (70-110)
[2022-11-05] MEDS: metFORMIN 500 MG TAB PO SCH (20:48)
[2022-11-05] MEDS: ATORVASTATIN 80 MG TAB PO SCH (20:48)
[2022-11-05] MEDS ORDERED: METOPROLOL TARTRATE 50 MG TAB PO SCH (21:00)
[2022-11-06] MEDS: ACETAMINOPHEN TAB 325 MG TAB PO PRN (01:20)
[2022-11-06 06:12] LABS: Glucose,Whole Blood 239 mg/dL (70-110)
[2022-11-06] MEDS: INSULIN ASPART (NovoLOG) 100 UNIT/ML VIAL SQ SCH ×5 (06:29→21:24)
[2022-11-06] MEDS ORDERED: INSULIN DETEMIR (LEVEMIR) 100 UNIT/ML SYR SQ SCH (07:00)
[2022-11-06] MEDS: HEPARIN SODIUM,PORCINE/PF 5,000 UNIT/0.5 ML SYRINGE SQ SCH ×3 (09:42→23:15)
[2022-11-06] MEDS: ASPIRIN 325 MG TAB PO SCH (09:42)
[2022-11-06] MEDS: CLOPIDOGREL 75 MG TAB PO SCH (09:42)
[2022-11-06] MEDS: DILTIAZEM CD 120 MG CAP.ER.24H PO SCH (09:42)
[2022-11-06] MEDS: EZETIMIBE 10 MG TAB PO SCH (09:42)
[2022-11-06] MEDS: METOPROLOL TARTRATE 50 MG TAB PO SCH ×2 (09:43→21:25)
[2022-11-06] MEDS: metFORMIN 500 MG TAB PO SCH ×2 (09:43→21:25)
[2022-11-06] MEDS: DAPAGLIFLOZIN PROPANEDIOL 5 MG TABLET PO SCH (09:46)
[2022-11-06 10:04] LABS: Basophils # (A) 0.1 k/uL (0-0.2); Basophils % (A) 1 %; Eosinophils # (A) 0.3 k/uL (0-0.7); Eosinophils % (A) 4 %; HCT 50.6 % (39.0-53.0); Lymphocytes # (A) 2.1 k/uL (1.0-4.8); Lymphocytes % (A) 31 %; MCH 30.9 pg (25.0-35.0); MCHC 33.7 g/dL (31.0-37.0); MCV 91.6 fL (80.0-100.0); Monocytes # (A) 0.4 k/uL (0-1.0); Monocytes % (A) 6 %; Neutrophils # (A) 3.8 k/uL (1.3-7.7); Neutrophils % (A) 56 %; Platelet Count 164 k/uL (150-450); RBC 5.52 m/uL (4.30-5.90); WBC 6.9 k/uL (3.8-10.6)
--- NOTE | 2022-11-06 10:07 | CA ---
Transthoracic Echo Report Name: Pb Lozada Age: 67 Gender: M : 1955 Exam Date: 11/05/2022 13:07 Exam Location: [facility] Ht (in): 66 Wt (lb): 170 Ordering Physician: Jayce Coffey MD Attending/Referring Phys: Quality Assurance Technician Devorah Salguero RDCS Procedure CPT: Indications: stroke Cardiac Hx: Technical Quality: fair Contrast 1: Total Dose (mL): Contrast 2: Total Dose (mL): MEASUREMENTS (Male / Female) Normal Values 2D ECHO LV Diastolic Diameter PLAX 4.2 cm 4.2 - 5.9 / 3.9 - 5.3 cm LV Systolic Diameter PLAX 2.8 cm IVS Diastolic Thickness 1.3 cm 0.6 - 1.0 / 0.6 - 0.9 cm LVPW Diastolic Thickness 1.2 cm 0.6 - 1.0 / 0.6 - 0.9 cm LV Relative Wall Thickness 0.6 RV Internal Dim ED PLAX 3.3 cm LVOT Diameter 2.2 cm LA Systolic Diameter LX 3.6 cm 3.0 - 4.0 / 2.7 - 3.8 cm LA Volume 46.8 cm??? 18 - 58 / 22 - 52 cm??? M-MODE Aortic Root Diameter MM 3.5 cm MV E Point Septal Separation 1.5 cm AV Cusp Separation MM 0.7 cm DOPPLER AV Peak Velocity 305.8 cm/s AV Peak Gradient 37.4 mmHg AV Mean Velocity 204.1 cm/s AV Mean Gradient 20.0 mmHg AV Velocity Time Integral 57.4 cm LVOT Peak Velocity 102.5 cm/s LVOT Peak Gradient 4.2 mmHg AV Area Cont Eq pk 1.3 cm??? MV Peak Velocity 160.6 cm/s MV Peak Gradient 10.3 mmHg MV Mean Velocity 85.9 cm/s MV Mean Gradient 3.6 mmHg MV Velocity Time Integral 39.6 cm MV Area PHT 2.6 cm??? Mitral E Point Velocity 103.2 cm/s Mitral A Point Velocity 150.0 cm/s Mitral E to A Ratio 0.7 MV Deceleration Time 278.0 ms MV E' Velocity 6.7 cm/s Mitral E to MV E' Ratio 15.5 TR Peak Velocity 238.4 cm/s TR Peak Gradient 22.7 mmHg Right Ventricular Systolic Press 27.7 mmHg FINDINGS Left Ventricle Left ventricular ejection fraction is estimated at 55-60 %. Left ventricular cavity size normal. Mild concentric left ventricular hypertrophy. Normal left ventricular wall motion. Right Ventricle Right ventricular dilatation. Right ventricular systolic pressure within normal limits. Right Atrium Normal right atrial size. Left Atrium Normal left atrial size. Mitral Valve Mitral valve thickened. Mitral annular calcification. Trace mitral regurgitation. Aortic Valve Moderate aortic valve sclerosis. Moderate aortic stenosis with a peak gradient of 37 mmHg and a mean gradient of 20 mmHg. Tricuspid Valve Structurally normal tricuspid valve. Mild tricuspid regurgitation. Pulmonic Valve Structurally normal pulmonic valve. Trace pulmonic regurgitation. Pericardium Normal pericardium. No echocardiographic findings to suggest a hemodynamically significant pericardial effusion. Aorta Normal size aortic root and proximal ascending aorta. CONCLUSIONS Left ventricular ejection fraction 55-60% Mild LVH Moderate mitral annular calcification Trace mitral regurgitation Moderate aortic stenosis Mild tricuspid regurgitation Previewed by: Dr. Brian Severino DO (Electronically Signed) Final Date: 06 November 2022 10:06
[2022-11-06 10:31] LABS: African American GFR (CKD) >90 (>60 ml/min/1.73 sqM); Anion Gap 5 mmol/L; Blood Urea Nitrogen 8 mg/dL (9-20); Calcium 8.4 mg/dL (8.4-10.2); Carbon Dioxide 24 mmol/L (22-30); Chloride 105 mmol/L (98-107); Glucose 185 mg/dL (74-99); Non-African American GFR(CKD) >90 (>60 ml/min/1.73 sqM); Potassium 4.3 mmol/L (3.5-5.1); Sodium 134 mmol/L (137-145)
[2022-11-06 11:45] LABS: Glucose,Whole Blood 296 mg/dL (70-110)
--- NOTE | 2022-11-06 12:25 | P.PN ---
Subjective Progress Note Date: 11/06/22 Patient is seen at bedside and he is feeling well. Denies of visual disturbance, focal weakness or numbness. He feels back to baseline. Objective - Vital Signs Vital signs: Vital Signs Temp 98.0 F 11/06/22 08:00 Pulse 62 11/06/22 08:00 Resp 18 11/06/22 08:00 BP 111/63 11/06/22 08:00 Pulse Ox 93 L 11/06/22 08:00 FiO2 Intake & Output 11/05/22 11/06/22 11/06/22 18:59 06:59 18:59 Intake Total 236 350 118 Balance 236 350 118 Intake: Oral 236 350 118 Other: Voiding Method Toilet Toilet Toilet # Voids 2 2 - Exam GENERAL: The patient is lying in bed and is not in acute distress. NEUROLOGICAL: Higher mental function: The patient is awake, alert, oriented to self, place and time. Patient is following commands. No aphasia and no neglect. Cranial nerves: The pupils are round, equal and reactive to light and accommodation. Visual bishop are full to confrontation throughout. Extraocular movement is intact no nystagmus is noted. Facial sensation is normal to touch throughout. The facial strength is normal throughout. Tongue is midline and moved [id number] without any difficulty. No dysarthria is noted. Shoulder shrug is normal bilaterally. Motor: Gait is normal. The strength is 5 over 5 throughout. Normal tone and bulk. Cerebellum: Normal finger to nose bilaterally. Sensation: Sensation is normal to touch throughout. Reflexes (right/left): 2+ throughout. Plantars are downgoing bilaterally. Some other workup during his hospital visit consisted of: Lipid panels triglyceride of 776, cholesterol is 334, LDLs 188. Hemoglobin A1c is 10.8. CT of the head is reported as small area of decreased attenuation within the right occipital lobe could reflect area of acute ischemia measuring 1.41.3 cm. No evidence for acute intracranial hemorrhage. I personally reviewed the CT and agree with report. CT angiography of the head and neck was reported as right ICA demonstrate estimated diameter reduction 80-85% stenosis, while left is 85%. Carotid duplex: It is reported as 50-69% stenosis of the right carotid bifurcation by peak systolic velocity ratio. Ascend 50% stenosis of the left carotid bifurcation. 2-D echo was reported as left ventricular ejection fraction of 55-60%. Mild left ventricular hypertrophy. Moderate mitral annular calcification. Moderate aortic stenosis. MRI Brain: It is reported as acute/subacute CVA involving the right occipital lobe with 2 large confluent area out probably involving the cortex as well as other punctate foci also present scattered throughout the right occipital lobe. As well as acute/subacute left hernandez radiata CVA. Given multiple vascular distribution correlate for embolic phenomena. Nonspecific white matter changes likely secondary due to small vessel ischemic disease. I personally reviewed the MRI and I agree with the finding regarding the acute subacute over the right occipital but I feel the left hernandez radiata is a T2 shine thru and not acute or subacute stroke. - Labs CBC & Chem 7: 11/06/22 08:46 11/06/22 08:46 Labs: Abnormal Lab Results - Last 24 Hours (Table) 11/05/22 11/05/22 11/05/22 Range/Units 10:38 16:33 20:01 Sodium (137-145) mmol/L BUN (9-20) mg/dL Creatinine (0.66-1.25) mg/dL Glucose (74-99) mg/dL POC Glucose (mg/dL) 315 H 246 H (70-110) mg/dL Hemoglobin A1c 10.8 H (0.0-6.0) % 11/06/22 11/06/22 11/06/22 Range/Units 06:11 08:46 11:42 Sodium 134 L (137-145) mmol/L BUN 8 L (9-20) mg/dL Creatinine 0.57 L (0.66-1.25) mg/dL Glucose 185 H (74-99) mg/dL POC Glucose (mg/dL) 239 H 296 H (70-110) mg/dL Hemoglobin A1c (0.0-6.0) % Assessment and Plan Assessment: This is a 67-year-old gentleman who presented because of the left facial droop, left-sided weakness and slurred speech. His symptoms has improved. Acute to subacute ischemic stroke (Right occipital) Seems probable due to symptomatic Right ICA. On MRI has also reported acute to subacute left hernandez radiata but I feel it is T2 shine thru and not acute or subacute ischemia. Significant bilateral carotid stenosis: Right ICA is 80-85% while left is 85% per CTA. While duplex is 50-69% on right while left is <50% Dyslipidemia Diabetes mellitus Hypertension History of coronary artery disease status post stents as well as CABG Tobacco use Plan: Vascular surgery team for the significant carotid stenosis. I recommend pursuing intervention of carotid stenosis over the right within 1-2 weeks. Continue Aspirin 325 daily as well as Plavix 75 mg daily (patient was on sporadic ASA). Patient to remain on dual antiplatelets for now. Continue Lipitor 80 mg daily at bedtime for secondary stroke prophylaxis. Recommend LDL goal to be less than 70 Consider fibrates especially that he has a hypertriglyceridemia I spoke with primary and consider MARISELA to rule out cardioembolic which I feel unlikely and feel more due to symptomatic carotid stenosis. Continue neuro checks Cardiac monitoring PT, OT and RN ONCOLOGY CLINICAL are consulted Patient was counseled on the tobacco/cigar cessation. We'll defer the rest of the medical management the primary team DVT prophylaxis On subcu heparin 5000 units every hours Recommend the patient to follow-up with a neurologist as outpatient within 1-2 weeks. The plan was discussed with the patient and primary team. Time with Patient: Less than 30
--- NOTE | 2022-11-06 14:09 | P.PN ---
Subjective Progress Note Date: 11/06/22 Patient seen and examined. Family at the bedside. No complaints. Reportedly back to his baseline Objective - Vital Signs Vital signs: Vital Signs Temp 98.0 F 11/06/22 08:00 Pulse 62 11/06/22 08:00 Resp 18 11/06/22 08:00 BP 111/63 11/06/22 08:00 Pulse Ox 93 L 11/06/22 08:00 FiO2 Intake & Output 11/05/22 11/06/22 11/06/22 18:59 06:59 18:59 Intake Total 236 350 236 Balance 236 350 236 Intake: Oral 236 350 236 Other: Voiding Method Toilet Toilet Toilet # Voids 2 2 - Exam General appearance: The patient is alert, oriented, appears in no acute distress. HET: Head is normocephalic and atraumatic. Pupils are equal and reactive. Neck: Supple. Trachea midline. No audible carotid bruit. Heart: Regular. Lungs: Equal expansion, normal respiratory effort. Bilateral wheezes. Abdomen: Soft, nontender, nondistended. Extremities: Normal skin color and turgor. No cyanosis, rash, ulceration, clubbing, or edema. Palpable +2 radial pulses bilaterally. Palpable bilateral +2 DP pulses. Neurological: Patient may have slight slurred speech, reportedly his baseline. Family understands and without issue. Patient has facial symmetry, Tongue protrudes midline, he answers questions appropriately and follows commands. Good strength and tone bilateral upper and lower - Labs CBC & Chem 7: 11/06/22 08:46 11/06/22 08:46 Labs: Abnormal Lab Results - Last 24 Hours (Table) 11/05/22 11/05/22 11/05/22 Range/Units 10:38 16:33 20:01 Sodium (137-145) mmol/L BUN (9-20) mg/dL Creatinine (0.66-1.25) mg/dL Glucose (74-99) mg/dL POC Glucose (mg/dL) 315 H 246 H (70-110) mg/dL Hemoglobin A1c 10.8 H (0.0-6.0) % 11/06/22 11/06/22 11/06/22 Range/Units 06:11 08:46 11:42 Sodium 134 L (137-145) mmol/L BUN 8 L (9-20) mg/dL Creatinine 0.57 L (0.66-1.25) mg/dL Glucose 185 H (74-99) mg/dL POC Glucose (mg/dL) 239 H 296 H (70-110) mg/dL Hemoglobin A1c (0.0-6.0) % Assessment and Plan Assessment: 1. Probable acute ischemic stroke affecting right occipital lobe with symptoms of expressive dysphasia, left facial droop and left upper and lower extremity weakness 2. Severe bilateral ICA stenosis per CT angiogram report, symptomatic on the right 3. Noncompliant with medications 4. Diabetes mellitus 5. Coronary artery disease status post CABG and stent 6. Hypertension 7. Hyperlipidemia 8. Former smoker Plan: Continue dual antiplatelet therapy and statin. Imaging is reviewed. Evidence of high-grade symptomatic right internal carotid artery stenosis. After review of imaging, I do not believe the patient would be a significant For a trans- carotid artery revascularization and stent due to the short access. Would plan discussion regarding carotid endarterectomy. This was discussed with the tayler caruso and his family, attempt to gain better medical control with appropriate blood sugar control.
[2022-11-06 14:36] VITALS: BMI 27.4
--- NOTE | 2022-11-06 15:48 | P.PN ---
Subjective This is a pleasant 67 years old male with past medical history of Diabetes Mellitus, Hyperlipidemia, Hypertension, , Coronary Bypass/CABG, Heart Catheterization With Stent Patient presents because of slurred speech and left-sided weakness which started yesterday when he was in the supermarket [place], he drove home and he was still feeling well and he could not walk, he was also feeling some headache on the right side. This morning patient states that his left-sided weakness is seen. Slurred speech is looks improved, still looks abnormal but as per patient and daughter at bedside this is his baseline. His headache is also improved and currently only mild headache around the right eye however patient denies any blurred vision or double vision to me. Remarkably patient says that he was noncompliant or adherent to his medication. Patient states that he supposed to be on insulin and he was not taking it. Daughter at bedside states that they just found out this morning patient was not taking his blood pressure pill as well which the patient confirms to me. Also he smokes about 4 cigars per day and he was counseled to quit and he agrees but he declines nicotine patch. No alcohol or illicit drug. Patient denies chest pain, no coughing no dyspnea. No abdominal pain vomiting or diarrhea. No urinary complaints. No dizziness. Vitas looks stable, blood pressure is slightly elevated and patient is afebrile. Labs showing unremarkable CBC, INR, BMP and liver enzymes. Glucose is elevated more than 250. Troponin Is Negative. Coronavirus Not Detected EKG, normal sinus rhythm with no significant ST-T changes Chest x-ray: Lingular atelectasis or pneumonia by a radiologist CT of the brain: Small area of decreased attenuation within the right occipital lobe, could reflex area of acute ischemia measuring 1.4 x 1.3 cm a, with no evidence of hemorrhage CTA of the head and neck: Right ICA demonstrates stenosis 80-85% and left internal carotid artery 85% 11/06/2022 Patient symptoms is improving, he does not show any further neurological deficit He remains on dual antiplatelet therapy with aspirin, Plavix and statin Increase his insulin dose to 15 units daily of Levemir as well as NovoLog 5 units with meals. Also he is on metformin. Vascular surgery, considering endarterectomy, patient required better sugar control Importance of aggressive therapies explained for the patient Cardiology consult for moderate aortic stenosis and possible MARISELA Objective - Vital Signs Vital signs: Vital Signs Temp 97.9 F 11/06/22 04:00 Pulse 72 11/06/22 04:00 Resp 17 11/06/22 04:00 BP 128/70 11/06/22 04:00 Pulse Ox 98 11/06/22 04:00 FiO2 Intake & Output 11/05/22 11/06/22 11/06/22 18:59 06:59 18:59 Intake Total 236 350 118 Balance 236 350 118 Intake: Oral 236 350 118 Other: Voiding Method Toilet Toilet # Voids 2 2 - Exam GENERAL: The patient is alert and oriented x3, not in any acute distress. Well d eveloped, well nourished. HEENT: Pupils are round and equally reacting to light. EOMI. No scleral icterus. No conjunctival pallor. Normocephalic, atraumatic. No pharyngeal erythema. No thyromegaly. CARDIOVASCULAR: S1 and S2 present. No murmurs, rubs, or gallops. PULMONARY: Chest is clear to auscultation, no wheezing or crackles. ABDOMEN: Soft, nontender, nondistended, normoactive bowel sounds. No palpable organomegaly. MUSCULOSKELETAL: No joint swelling or deformity. EXTREMITIES: No cyanosis, clubbing, or pedal edema. NEUROLOGICAL: Gross neurological examination did not reveal any focal deficits. SKIN: No rashes. no petechiae. - Labs CBC & Chem 7: 11/06/22 08:46 11/06/22 08:46 Labs: Abnormal Lab Results - Last 24 Hours (Table) 11/04/22 11/05/22 11/05/22 Range/Units 14:38 10:38 11:20 Sodium (137-145) mmol/L BUN (9-20) mg/dL Creatinine (0.66-1.25) mg/dL Glucose (74-99) mg/dL POC Glucose (mg/dL) 250 H (70-110) mg/dL Hemoglobin A1c 10.8 H (0.0-6.0) % Triglycerides 776.00 H (0.00-149.00) mg/dL Cholesterol 334.00 H (0.00-200.00) mg/dL LDL Cholesterol Direct 188.00 H (0.00-129.00) mg/dL HDL Cholesterol 34.70 L (40.00-60.00) mg/dL 11/05/22 11/05/22 11/06/22 Range/Units 16:33 20:01 06:11 Sodium (137-145) mmol/L BUN (9-20) mg/dL Creatinine (0.66-1.25) mg/dL Glucose (74-99) mg/dL POC Glucose (mg/dL) 315 H 246 H 239 H (70-110) mg/dL Hemoglobin A1c (0.0-6.0) % Triglycerides (0.00-149.00) mg/dL Cholesterol (0.00-200.00) mg/dL LDL Cholesterol Direct (0.00-129.00) mg/dL HDL Cholesterol (40.00-60.00) mg/dL 11/06/22 Range/Units 08:46 Sodium 134 L (137-145) mmol/L BUN 8 L (9-20) mg/dL Creatinine 0.57 L (0.66-1.25) mg/dL Glucose 185 H (74-99) mg/dL POC Glucose (mg/dL) (70-110) mg/dL Hemoglobin A1c (0.0-6.0) % Triglycerides (0.00-149.00) mg/dL Cholesterol (0.00-200.00) mg/dL LDL Cholesterol Direct (0.00-129.00) mg/dL HDL Cholesterol (40.00-60.00) mg/dL Assessment and Plan Assessment: Acute stroke with left hemiparesis, confusion and slurred speech, improving Bilateral internal carotid artery stenosis about 80-85% Diabetes mellitus with hyperglycemia, present on admission Hypertension, mildly uncontrolled on admission Non-compliance and non-adherence to his medication History of coronary artery disease status post CABG and stent Hyperlipidemia Atelectasis Plan: Continue with current antiplatelet therapy of aspirin and plavix Breast cancer surgery team considering endarterectomy for his carotid stenosis Neurology consult Vascular surgery consult Consult cardiology team for possible MARISELA and also for moderate aortic stenosis We'll increase his Levemir 15 units of NovoLog 5 units with meals as well as metformin 1000 mg and FARXIGA Labs and medication were reviewed.. Continue same treatment. Continue with symptomatic treatment. Resume home medication. Monitor labs and vitals. DVT and GI prophylaxis. Further recommendations as per clinical course of the patient DVT prophylaxis: Subcutaneous heparin GI Prophylaxis: Pepcid PT/OT: Pending Prognosis is guarded
[2022-11-06 16:46] LABS: Glucose,Whole Blood 143 mg/dL (70-110)
[2022-11-06] MEDS ORDERED: INSULIN ASPART (NovoLOG) 100 UNIT/ML VIAL SQ SCH (17:30)
[2022-11-06] MEDS: SPIRONOLACTONE 25 MG TAB PO SCH (17:41)
[2022-11-06] MEDS: FENOFIBRATE 160 MG TAB PO SCH (17:42)
[2022-11-06 20:11] LABS: Glucose,Whole Blood 206 mg/dL (70-110)
[2022-11-06] MEDS: ATORVASTATIN 80 MG TAB PO SCH (21:25)
[2022-11-07 06:11] LABS: Glucose,Whole Blood 200 mg/dL (70-110)
[2022-11-07] MEDS: INSULIN DETEMIR (LEVEMIR) 100 UNIT/ML SYR SQ SCH (06:32)
[2022-11-07] MEDS: CLOPIDOGREL 75 MG TAB PO SCH (09:09)
[2022-11-07] MEDS: metFORMIN 500 MG TAB PO SCH ×2 (09:09→20:50)
[2022-11-07] MEDS: METOPROLOL TARTRATE 50 MG TAB PO SCH ×2 (09:09→20:50)
[2022-11-07] MEDS: ASPIRIN 325 MG TAB PO SCH (09:09)
[2022-11-07] MEDS: EZETIMIBE 10 MG TAB PO SCH (09:09)
[2022-11-07] MEDS: DILTIAZEM CD 120 MG CAP.ER.24H PO SCH (09:09)
[2022-11-07] MEDS: DAPAGLIFLOZIN PROPANEDIOL 5 MG TABLET PO SCH (09:09)
[2022-11-07] MEDS: HEPARIN SODIUM,PORCINE/PF 5,000 UNIT/0.5 ML SYRINGE SQ SCH ×3 (09:09→23:45)
[2022-11-07] MEDS: SPIRONOLACTONE 25 MG TAB PO SCH (09:09)
[2022-11-07] MEDS: INSULIN ASPART (NovoLOG) 100 UNIT/ML VIAL SQ SCH ×7 (09:10→20:50)
[2022-11-07 12:02] LABS: Glucose,Whole Blood 152 mg/dL (70-110)
--- NOTE | 2022-11-07 13:17 | P.PN ---
Subjective Progress Note Date: 11/07/22 The patient is seen at bedside and feels about the same. Denies of any new neurological issues. Objective - Vital Signs Vital signs: Vital Signs Temp 97.7 F 11/07/22 08:00 Pulse 66 11/07/22 08:00 Resp 18 11/07/22 08:00 BP 138/77 11/07/22 08:00 Pulse Ox 93 L 11/07/22 08:00 FiO2 Intake & Output 11/06/22 11/07/22 11/07/22 18:59 06:59 18:59 Intake Total 596 360 Balance 596 360 Weight 77.111 kg Intake: Oral 596 360 Other: Voiding Method Toilet Toilet Toilet # Voids 2 - Exam GENERAL: The patient is lying in bed and is not in acute distress. NEUROLOGICAL: Higher mental function: The patient is awake, alert, oriented to self, place and time. Patient is following commands. No aphasia and no neglect. Cranial nerves: The pupils are round, equal and reactive to light and accommodation. Visual bishop are full to confrontation throughout. Extraocular movement is intact no nystagmus is noted. Facial sensation is normal to touch throughout. The facial strength is normal throughout. Tongue is midline and moved [id number] without any difficulty. No dysarthria is noted. Shoulder shrug is normal bilaterally. Motor: Gait is normal. The strength is 5 over 5 throughout. Normal tone and bulk. Cerebellum: Normal finger to nose bilaterally. Sensation: Sensation is normal to touch throughout. Reflexes (right/left): 2+ throughout. Plantars are downgoing bilaterally. Some other workup during his hospital visit consisted of: Lipid panels triglyceride of 776, cholesterol is 334, LDLs 188. Hemoglobin A1c is 10.8. CT of the head is reported as small area of decreased attenuation within the right occipital lobe could reflect area of acute ischemia measuring 1.41.3 cm. No evidence for acute intracranial hemorrhage. I personally reviewed the CT and agree with report. CT angiography of the head and neck was reported as right ICA demonstrate estimated diameter reduction 80-85% stenosis, while left is 85%. Carotid duplex: It is reported as 50-69% stenosis of the right carotid bifurcation by peak systolic velocity ratio. Ascend 50% stenosis of the left carotid bifurcation. 2-D echo was reported as left ventricular ejection fraction of 55-60%. Mild left ventricular hypertrophy. Moderate mitral annular calcification. Moderate aortic stenosis. MRI Brain: It is reported as acute/subacute CVA involving the right occipital lobe with 2 large confluent area out probably involving the cortex as well as other punctate foci also present scattered throughout the right occipital lobe. As well as acute/subacute left hernandez radiata CVA. Given multiple vascular distribution correlate for embolic phenomena. Nonspecific white matter changes likely secondary due to small vessel ischemic disease. I personally reviewed the MRI and I agree with the finding regarding the acute subacute over the right occipital but I feel the left hernandez radiata is a T2 shine thru and not acute or subacute stroke. - Labs CBC & Chem 7: 11/06/22 08:46 11/06/22 08:46 Labs: Abnormal Lab Results - Last 24 Hours (Table) 11/06/22 11/06/22 11/07/22 Range/Units 16:37 20:10 06:10 POC Glucose (mg/dL) 143 H 206 H 200 H (70-110) mg/dL 11/07/22 Range/Units 11:59 POC Glucose (mg/dL) 152 H (70-110) mg/dL Assessment and Plan Assessment: This is a 67-year-old gentleman who presented because of the left facial droop, left-sided weakness and slurred speech. His symptoms has improved. Acute to subacute ischemic stroke (Right occipital) Seems probable due to symptomatic Right ICA. On MRI has also reported acute to subacute left hernandez radiata but I feel it is T2 shine thru and not acute or subacute ischemia. Significant bilateral carotid stenosis: Right ICA is 80-85% while left is 85% per CTA. While duplex is 50-69% on right while left is <50% Dyslipidemia Diabetes mellitus Hypertension History of coronary artery disease status post stents as well as CABG Tobacco use Plan: Vascular surgery team for the significant carotid stenosis and they recommend endarectomy. I recommend pursuing intervention of carotid stenosis over the rig ht within 1-2 weeks. Continue Aspirin 325 daily as well as Plavix 75 mg daily (patient was on sporad ic ASA). Patient to remain on dual antiplatelets for now. Continue Lipitor 80 mg daily at bedtime for secondary stroke prophylaxis. Recommend LDL goal to be less than 70 Consider fibrates especially that he has a hypertriglyceridemia Cardiology is consulted for MARISELA to rule out cardioembolic which I feel unlikely and feel more due to symptomatic carotid stenosis. Continue neuro checks Cardiac monitoring PT, OT and [employer] are consulted Patient was counseled on the tobacco/cigar cessation. We'll defer the rest of the medical management the primary team DVT prophylaxis On subcu heparin 5000 units every hours Recommend the patient to follow-up with a neurologist as outpatient within 1-2 weeks. The plan was discussed with the patient and primary team. Dr. Estrella will start neurology service tomorrow A.M. Time with Patient: Less than 30
--- NOTE | 2022-11-07 14:11 | P.CRDCN ---
History of Present Illness Consult date: 11/07/22 Consult reason: aortic stenosis (stroke), other History of present illness: History of present illness: This is a pleasant 67-year-old male with significant past medical history of diabetes, hyperlipidemia, hypertension, AL in 2010 status post PCI of the circumflex, CABG 3 vessel in 2019 presented to the emergency department 11/04 with strokelike symptoms. He follows with Dr. Mckeon in the office. Cardiology was consulted for possible MARISELA and moderate stenosis. He reports that he developed slurred speech, altered mental status, left facial droop, and left and arm weakness. He was not a candidate for TPA as symptoms were resolving. He reports that he has been noncompliant with his medications and has not been taking them for the past couple months. He states that this is because he is lazy does not want to take so many medications. He was not on any blood thinners. MRI brain shows acute/subacute CVA of the right occipital lobe as well as left coronal radiata CVA. CTA of the neck reveals right ICA stenosis 8085 percent, left ICA stenosis 85%. Echocardiogram with EF 5560 percent, mild LVH, moderate aortic stenosis. Labs reviewed: Hemoglobin A1c 10.8, total cholesterol 334, triglycerides 776, HDL 34, LDL 188, creatinine 0.57. On exam he does have mild dysarthria, he reports that his symptoms have returned back to baseline. He was seen by vascular surgery for carotid stenosis and is being evaluated for possible CVA. REVIEW OF SYSTEMS: No fever or chills. No cough or expectoration. No diaphoresis. Patient denies headache, dizziness, blurred vision, double vision. Patient denies any stomach discomfort. No nausea, vomiting. No hematochezia. No hematemesis. Denies any black stools or blood in his stools. Denies dysuria or hematuria. No muscle weakness or numbness. No chest pain or pressure. PHYSICAL EXAMINATION: This is a 67-year-old male in no apparent distress at the time of my examination. HEENT: Head is atraumatic, normocephalic. Pupils are equal, round. Sclerae anicteric. Conjunctivae are clear. Mucous membranes of the mouth are moist. Neck is supple. There is no jugular venous distention. CHEST EXAMINATION: Lungs are clear to auscultation. No chest wall tenderness is noted on palpation or with deep breathing. HEART EXAMINATION: Heart regular rate and rhythm. S1, S2 heard. No murmurs, gall ops or rub. ABDOMEN: Soft, nontender. Bowel sounds are heard. EXTREMITIES: 2+ peripheral pulses with no evidence of peripheral edema and no calf tenderness noted. NEUROLOGIC EXAMINATION: Patient is awake, alert and oriented x3. Mild dysarthria, no focal weakness on exam. IMPRESSION AND PLAN: Acute/subacute CVA Carotid stenosis, Right ICA 80-85%, left ICA 85% Hypertension Diabetes, not well controlled A1c not at goal less than 6.5 Hyperlipidemia Moderate aortic stenosis History of CABG 3 vessel 2020 History of PCI of circumflex 2010 Medication noncompliance PLAN: Discussed with patient the importance of primary prevention for stroke and heart attack to include strict blood sugar management and cholesterol management. Strongly emphasized the importance of medication compliance. Vas cular surgery is evaluating patient for possible CVA. Per neurology recommendations stroke is more likely related to symptomatic carotid stenosis. Will consider MARISELA as outpatient if neurology recommends. Consider stress test as outpatient. Recommend 30 day event monitor to evaluate for a-fib. Will follow. I am dictating on behalf of Dr. Brian Severino's history/physical and assessment/plan. Past Medical History Past Medical History: Diabetes Mellitus, Hyperlipidemia, Hypertension, Myocardial Infarction (AL) Additional Past Medical History / Comment(s): current umbilical hernia Last Myocardial Infarction Date:: 2010 History of Any Multi-Drug Resistant Organisms: None Reported Past Surgical History: Coronary Bypass/CABG, Heart Catheterization With Stent Additional Past Surgical History / Comment(s): recent cardiac cath, valve replacement Past Anesthesia/Blood Transfusion Reactions: No Reported Reaction Additional Past Anesthesia/Blood Transfusion Reaction / Comment(s): no surgical hx Date of Last Stent Placement:: 2010 Past Psychological History: No Psychological Hx Reported Smoking Status: Never smoker Past Alcohol Use History: None Reported Additional Past Alcohol Use History / Comment(s): The patient smokes cigars off and on since age 17. No alcohol or illicit drug use. Past Drug Use History: None Reported - Past Family History Mother Family Medical History: No Reported History Additional Family Medical History / Comment(s): Mother at age 72 from diabetes complications. No history of coronary artery disease. Father Family Medical History: Coronary Artery Disease (CAD), Myocardial Infarction (AL) Additional Family Medical History / Comment(s): father at age 62 from myocardial infarction with history of coronary artery disease. Brother(s) Family Medical History: Coronary Artery Disease (CAD) Additional Family Medical History / Comment(s): Patient has 2 brothers one from myocardial infarction. One brother had myocardial infarction status post 3 vessel CABG. Sister(s) Additional Family Medical History / Comment(s): Patient has 2 sisters and one has diabetes. Patient has 3 daughters and 2 sons with no major medical problems. Medications and Allergies Home Medications Medication Instructions Recorded Confirmed Type Insulin Aspart [Insulin Aspart 7 unit SQ AC-TID 11/04/22 11/04/22 History Flexpen] Dapagliflozin Propanediol [Farxiga] 5 mg PO DAILY 11/05/22 11/05/22 History Ezetimibe [Zetia] 10 mg PO DAILY 11/05/22 11/05/22 History Metoprolol Tartrate [Lopressor] 50 mg PO BID 11/05/22 11/05/22 History Spironolactone 25 mg PO DAILY 11/05/22 11/05/22 History dilTIAZem HCL [dilTIAZem HCL 24Hr 120 mg PO DAILY 11/05/22 11/05/22 History ER (Xr)] gemfibroziL [Lopid] 600 mg PO AC-BID 11/05/22 11/05/22 History icosapent ethyL [Icosapent Ethyl] 1 gm PO BID 11/05/22 11/05/22 History metFORMIN HCL 500 mg PO BID 11/05/22 11/05/22 History sitaGLIPtin [Januvia] 100 mg PO DAILY 11/05/22 11/05/22 History Allergies Allergy/AdvReac Type Severity Reaction Status Date / Time Penicillins Allergy Rash/Hives Verified 11/04/22 16:59 Physical Exam Vitals: Vital Signs Temp Pulse Resp BP Pulse Ox 11/07/22 08:00 97.7 F 66 18 138/77 93 L 11/07/22 04:58 69 18 124/72 97 11/07/22 00:00 97.8 F 64 18 110/65 96 11/06/22 20:00 98.4 F 87 16 104/62 96 11/06/22 16:00 97.8 F 82 18 120/75 96 11/06/22 14:00 62 18 11/06/22 12:00 70 18 136/80 97 Intake and Output 11/06/22 11/07/22 11/07/22 22:59 06:59 14:59 Intake Total 360 Balance 360 Intake: Oral 360 Other: Voiding Method Toilet Toilet Toilet # Voids 2 Results 11/06/22 08:46 11/06/22 08:46 Comprehensive Metabolic Panel 11/06/22 Range/Units 08:46 Sodium 134 L (137-145) mmol/L Potassium 4.3 (3.5-5.1) mmol/L Chloride 105 (98-107) mmol/L Carbon Dioxide 24 (22-30) mmol/L BUN 8 L (9-20) mg/dL Creatinine 0.57 L (0.66-1.25) mg/dL Glucose 185 H (74-99) mg/dL Calcium 8.4 (8.4-10.2) mg/dL Current Medications Generic Name Dose Route Start Last Admin Trade Name Freq PRN Reason Stop Dose Admin Acetaminophen 650 mg 11/05/22 00:17 11/06/22 01:20 Acetaminophen Tab 325 Mg Tab PO 650 mg Q6HR PRN Administration Fever and/ or Pain Aspirin 325 mg 11/05/22 09:00 11/07/22 09:09 Aspirin 325 Mg Tab PO 325 mg DAILY CORINA Administration Atorvastatin Calcium 80 mg 11/04/22 21:00 11/06/22 21:25 Atorvastatin 80 Mg Tab PO 80 mg HS CORINA Administration Clopidogrel Bisulfate 75 mg 11/05/22 09:00 11/07/22 09:09 Clopidogrel 75 Mg Tab PO 75 mg DAILY CORINA Administration Dapagliflozin 5 mg 11/06/22 09:00 11/07/22 09:09 Dapagliflozin Propanediol 5 Mg Tablet PO 5 mg DAILY CORINA Administration Dextrose/Water 25 ml 11/05/22 16:57 Dextrose 50% Syringe 50 Ml IVP PER PROTOCOL PRN Hypoglycemia Protocol Dextrose/Water 50 ml 11/05/22 16:57 Dextrose 50% Syringe 50 Ml IVP PER PROTOCOL PRN Hypoglycemia Protocol Diltiazem HCl 120 mg 11/06/22 09:00 11/07/22 09:09 Diltiazem Cd 120 Mg Cap.Er.24h PO 120 mg DAILY CORINA Administration Ezetimibe 10 mg 11/06/22 09:00 11/07/22 09:09 Ezetimibe 10 Mg Tab PO 10 mg DAILY CORINA Administration Fenofibrate 160 mg 11/05/22 17:30 11/06/22 17:42 Fenofibrate 160 Mg Tab PO 160 mg AC-SUPPER CORINA Administration Heparin Sodium (Porcine) 5,000 unit 11/05/22 16:00 11/07/22 09:09 Heparin Sodium,Porcine/Pf 5,000 Unit/0.5 Ml Syringe SQ 5,000 unit Q8HR CORINA Administration Insulin Aspart 0 unit 11/05/22 17:30 11/07/22 09:11 Insulin Aspart (Novolog) 100 Unit/Ml Vial SQ 3 unit ACHS CORINA Administration Protocol Insulin Aspart 5 unit 11/06/22 17:30 11/07/22 09:10 Insulin Aspart (Novolog) 100 Unit/Ml Vial SQ 5 unit AC-TID CORINA Administration Insulin Detemir 15 unit 11/07/22 07:00 11/07/22 06:32 Insulin Detemir (Levemir) 100 Unit/Ml Syr SQ 15 unit DAILY@0700 CORINA Administration Metformin HCl 500 mg 11/05/22 21:00 11/07/22 09:09 Metformin 500 Mg Tab PO 500 mg BID CORINA Administration Metoprolol Tartrate 100 mg 11/06/22 09:00 11/07/22 09:09 Metoprolol Tartrate 50 Mg Tab PO 100 mg BID CORINA Administration Spironolactone 25 mg 11/06/22 09:00 11/07/22 09:09 Spironolactone 25 Mg Tab PO 25 mg DAILY CORINA Administration Intake and Output 11/06/22 11/07/22 11/07/22 22:59 06:59 14:59 Intake Total 360 Balance 360 Intake: Oral 360 Other: Voiding Method Toilet Toilet Toilet # Voids 2 11/06/22 08:46 11/06/22 08:46
[2022-11-07 16:31] LABS: Glucose,Whole Blood 133 mg/dL (70-110)
[2022-11-07] MEDS: FENOFIBRATE 160 MG TAB PO SCH (18:04)
[2022-11-07 20:16] LABS: Glucose,Whole Blood 203 mg/dL (70-110)
[2022-11-07] MEDS: ATORVASTATIN 80 MG TAB PO SCH (20:50)
--- NOTE | 2022-11-08 01:34 | P.PN ---
Subjective Progress Note Date: 11/07/22 This is a pleasant 67 years old male with past medical history of Diabetes Mellitus, Hyperlipidemia, Hypertension, , Coronary Bypass/CABG, Heart Catheteriz ation With Stent Patient presents because of slurred speech and left-sided weakness which started yesterday when he was in the [employer], he drove home and he was still feeling well and he could not walk, he was also feeling some headache on the right side. This morning patient states that his left-sided weakness is seen. Slurred speech is looks improved, still looks abnormal but as per patient and daughter at bedside this is his baseline. His headache is also improved and currently only mild headache around the right eye however patient denies any blurred vision or double vision to me. Remarkably patient says that he was noncompliant or adherent to his medication. Patient states that he supposed to be on insulin and he was not taking it. Daughter at bedside states that they just found out this morning patient was not taking his blood pressure pill as well which the patient confirms to me. Also he smokes about 4 cigars per day and he was counseled to quit and he agrees but he declines nicotine patch. No alcohol or illicit drug. Patient denies chest pain, no coughing no dyspnea. No abdominal pain vomiting or diarrhea. No urinary complaints. No dizziness. Vitas looks stable, blood pressure is slightly elevated and patient is afebrile. Labs showing unremarkable CBC, INR, BMP and liver enzymes. Glucose is elevated more than 250. Troponin Is Negative. Coronavirus Not Detected EKG, normal sinus rhythm with no significant ST-T changes Chest x-ray: Lingular atelectasis or pneumonia by a radiologist CT of the brain: Small area of decreased attenuation within the right occipital lobe, could reflex area of acute ischemia measuring 1.4 x 1.3 cm a, with no evidence of hemorrhage CTA of the head and neck: Right ICA demonstrates stenosis 80-85% and left internal carotid artery 85% 11/06/2022 Patient symptoms is improving, he does not show any further neurological deficit He remains on dual antiplatelet therapy with aspirin, Plavix and statin Increase his insulin dose to 15 units daily of Levemir as well as NovoLog 5 units with meals. Also he is on metformin. Vascular surgery, considering endarterectomy, patient required better sugar control Importance of aggressive therapies explained for the patient Cardiology consult for moderate aortic stenosis and possible MARISELA 11/07/2022 Patient is currently sitting in a chair. Awake alert oriented x3. Slurred speech is much improved. No complaints of weakness. No nausea vomiting abdominal pain or diarrhea. Blood sugar is 200 this morning. Patient is being continued on aspirin and Plavix. Vascular surgery and neurology is on board. MARISELA was ordered and cardiology consulted to moderate aortic stenosis. Current medications reviewed. Objective - Vital Signs Vital signs: Vital Signs Temp 97.7 F 11/07/22 08:00 Pulse 66 11/07/22 08:00 Resp 18 11/07/22 08:00 BP 138/77 11/07/22 08:00 Pulse Ox 93 L 11/07/22 08:00 FiO2 Intake & Output 11/06/22 11/07/22 11/07/22 18:59 06:59 18:59 Intake Total 596 360 Balance 596 360 Weight 77.111 kg Intake: Oral 596 360 Other: Voiding Method Toilet Toilet Toilet # Voids 2 - Exam - Exam GENERAL: The patient is alert and oriented x3, not in any acute distress. Well developed, well nourished. HEENT: Pupils are round and equally reacting to light. EOMI. No scleral icterus. No conjunctival pallor. Normocephalic, atraumatic. No pharyngeal erythema. No th yromegaly. CARDIOVASCULAR: S1 and S2 present. No murmurs, rubs, or gallops. PULMONARY: Chest is clear to auscultation, no wheezing or crackles. ABDOMEN: Soft, nontender, nondistended, normoactive bowel sounds. No palpable organomegaly. MUSCULOSKELETAL: No joint swelling or deformity. EXTREMITIES: No cyanosis, clubbing, or pedal edema. NEUROLOGICAL: Gross neurological examination did not reveal any focal deficits. SKIN: No rashes. no petechiae. - Labs CBC & Chem 7: 11/06/22 08:46 11/06/22 08:46 Labs: Abnormal Lab Results - Last 24 Hours (Table) 11/06/22 11/06/22 11/07/22 Range/Units 16:37 20:10 06:10 POC Glucose (mg/dL) 143 H 206 H 200 H (70-110) mg/dL 11/07/22 Range/Units 11:59 POC Glucose (mg/dL) 152 H (70-110) mg/dL Assessment and Plan Assessment: Acute stroke with left hemiparesis, confusion and slurred speech, improved Bilateral internal carotid artery stenosis about 80-85%. Diabetes mellitus with hyperglycemia, present on admission Hypertension, mildly uncontrolled on admission Non-compliance and non-adherence to his medication History of coronary artery disease status post CABG and stent Hyperlipidemia Atelectasis Plan: Continue with current antiplatelet therapy of aspirin and plavix vascularsurgery team considering endarterectomy for his carotid stenosis Neurology consult Vascular surgery consult Consult cardiology team for possible MARISELA and also for moderate aortic stenosis increased Levemir 15 units of NovoLog 5 units with meals as well as metformin 1000 mg and FARXIGA Labs and medication were reviewed.. DVT prophylaxis: Subcutaneous heparin GI Prophylaxis: Pepcid PT/OT: Pending Prognosis is guarded Time with Patient: Greater than 30
[2022-11-08 06:05] LABS: Glucose,Whole Blood 185 mg/dL (70-110)
[2022-11-08] MEDS: INSULIN DETEMIR (LEVEMIR) 100 UNIT/ML SYR SQ SCH (06:41)
[2022-11-08 08:43] LABS: Basophils # (A) 0.1 k/uL (0-0.2); Basophils % (A) 1 %; Eosinophils # (A) 0.3 k/uL (0-0.7); Eosinophils % (A) 3 %; HCT 50.7 % (39.0-53.0); HGB 17.3 gm/dL (13.0-17.5); Lymphocytes # (A) 2.2 k/uL (1.0-4.8); Lymphocytes % (A) 24 %; MCH 31.5 pg (25.0-35.0); MCHC 34.2 g/dL (31.0-37.0); MCV 92.2 fL (80.0-100.0); Mean Platelet Volume 10.3; Monocytes # (A) 0.5 k/uL (0-1.0); Monocytes % (A) 5 %; Neutrophils # (A) 6.1 k/uL (1.3-7.7); Neutrophils % (A) 65 %; Platelet Count 183 k/uL (150-450); RDW 13.8 % (11.5-15.5); WBC 9.5 k/uL (3.8-10.6)
[2022-11-08 08:59] LABS: African American GFR (CKD) >90 (>60 ml/min/1.73 sqM); Anion Gap 6 mmol/L; Blood Urea Nitrogen 13 mg/dL (9-20); Calcium 9.1 mg/dL (8.4-10.2); Carbon Dioxide 24 mmol/L (22-30); Chloride 106 mmol/L (98-107); Glucose 177 mg/dL (74-99); Non-African American GFR(CKD) >90 (>60 ml/min/1.73 sqM); Potassium 4.7 mmol/L (3.5-5.1); Sodium 136 mmol/L (137-145)
[2022-11-08] MEDS: INSULIN ASPART (NovoLOG) 100 UNIT/ML VIAL SQ SCH ×4 (09:09→13:25)
[2022-11-08] MEDS: metFORMIN 500 MG TAB PO SCH (09:10)
[2022-11-08] MEDS: HEPARIN SODIUM,PORCINE/PF 5,000 UNIT/0.5 ML SYRINGE SQ SCH (09:10)
[2022-11-08] MEDS ORDERED: fentaNYL (PF) 50 MCG/ML 2 ML AMP ONE (09:21)
[2022-11-08] MEDS ORDERED: BENZOCAINE SPRAY 1 CAN TOPICAL ONE (09:35)
[2022-11-08] MEDS ORDERED: IV FLUID CONTINUATION 500 ML IV ONE (09:38)
[2022-11-08] MEDS ORDERED: fentaNYL (PF) 50 MCG/ML 2 ML AMP IV ONE (09:45)
[2022-11-08] MEDS ORDERED: MIDAZOLAM 2 MG/2 ML VIAL IV ONE (09:45)
--- NOTE | 2022-11-08 10:09 | P.PCN ---
Date of Procedure: 11/08/22 Description of Procedure: Indication: Evaluation of CVA source Procedure Description: After explaining the procedure to the patient, it's risk and complications, blood pressure, heart rate and O2 saturation were monitored. The throat was sprayed with Cetacaine. Patient received 2 mg intravenous Versed, 50 mcg intravenous fentanyl. The probe was introduced into the esophagus without difficulty. Images were obtained. Following that, the probe was removed. There was no immediate complication. Findings: Left atrial size is normal, left atrial appendage is normal. Left ventricle size and systolic function are normal. The aortic valve is a tricuspid valve with calcification and reduced opening, by planimetry the valve area is 1.1 cm. Mitral annulus calcification was noted. Tricuspid valve is normal. Descending thoracic aorta is normal. No pericardial effusion was noted. Contrast bubble study revealed no shunting across the intra-atrial septum with Valsalva maneuver. Doppler: Pulse wave and color Doppler were obtained, an revealed mild mitral regurgitation and tricuspid regurgitation. The peak gradient across the aortic valve was 33 mmHg with a mean of 23 mmHg. There was no shunting by color Doppler study. Conclusion: 1. Normal left ventricle size and systolic function 2. Normal appearance of the left atrial appendage 3. Moderate aortic stenosis with a mean gradient of 23 mmHg 4. Mild mitral and tricuspid regurgitation 5. No shunting across the intra-atrial septum.
[2022-11-08] MEDS ORDERED: SODIUM CHLORIDE 0.9% 1,000 ML IV SCH (10:15)
[2022-11-08] MEDS: CLOPIDOGREL 75 MG TAB PO SCH (11:38)
[2022-11-08] MEDS: ASPIRIN 325 MG TAB PO SCH (11:38)
[2022-11-08] MEDS: DAPAGLIFLOZIN PROPANEDIOL 5 MG TABLET PO SCH (11:38)
[2022-11-08] MEDS: EZETIMIBE 10 MG TAB PO SCH (11:38)
[2022-11-08] MEDS: SPIRONOLACTONE 25 MG TAB PO SCH (11:38)
[2022-11-08] MEDS: METOPROLOL TARTRATE 50 MG TAB PO SCH (11:38)
[2022-11-08] MEDS: DILTIAZEM CD 120 MG CAP.ER.24H PO SCH (11:39)
[2022-11-08 11:55] LABS: Glucose,Whole Blood 254 mg/dL (70-110)
--- NOTE | 2022-11-08 12:57 | P.DS ---
Providers Date of admission: 11/04/22 16:47 Expected date of discharge: 11/08/22 Attending physician: Rickie Reyes Consults: 11/04/22 16:46 Consult Physician Routine Consulting Provider: Jayce Coffey Consult Reason/Comments: CVA Do you want consulting provider notified?: Yes 11/05/22 09:39 Consult Physician Routine Consulting Provider: Rama Acosta Consult Reason/Comments: carotid stenosis. stroke Do you want consulting provider notified?: Yes 11/06/22 15:43 Consult Physician Routine Consulting Provider: Tye Tovar Consult Reason/Comments: possible need MARISELA, Also with mod Do you want consulting provider notified?: Yes Primary care physician: Rickie Reyes Hospital Course: This is a 67-year-old male with past medical history of diabetes mellitus type 2, hypertension, hyperlipidemia, history of MS in 2010 status post stent of the circumflex and triple-vessel coronary artery disease with bypass grafting using the left internal mammary artery to the left anterior descending artery, left radial artery from the aorta to the obtuse marginal artery, reverse saphenous vein graft from the aorta to the posterior descending artery. Patient presented to the emergency center with slurred speech and left-sided weakness, headache. He has been seen in consultation by neurology, vascular surgery and cardiology, diagnosed with acute CVA. CAT scan of the brain showed small area of decreased attenuation within the right occipital lobe could reflect area of acute ischemia CTA of the head and neck right ICA stenosis 80-85% and left internal carotid artery 85% MRI of the brain revealed acute/subacute CVA involving the right occipital lobe with 2 larger confluent areas probably involving the cortex as well as other punctate foci also present scattered throughout the right occipital lobe. Also acute subacute left hernandez radiata CVA. Given multiple vascular distribution correlate for embolic phenomenon. Nonspecific white matter changes likely secondary to small vessel ischemic disease. Triglycerides 776, cholesterol 334, LDL 188, HDL 34. Hemoglobin A1c 10.8. Echocardiogram revealed EF of 55-60%, mild LVH, moderate mitral annular calcification, trace mitral regurgitation, moderate aortic stenosis, mild tricuspid regurgitation. On 11/08, patient underwent MARISELA with Dr. Mckeon which revealed no cardiac source for CVA. Mild mitral and tricuspid regurgitation. Moderate aortic stenosis with mean gradient of 23 mmHg. Patient has been evaluated by therapies with recommendations for home. Patient will be discharged home today in stable cond ition. Plan is for outpatient stress testing with Dr. Mckeon in follow-up with vascular surgery for surgical intervention for carotid stenosis. Discharge diagnoses: Acute ischemic stroke with left hemiparesis Bilateral internal carotid artery stenosis Diabetes mellitus type II uncontrolled with hyperglycemia, A1c 10.8 Hypertension History of coronary artery disease status post CABG and stent Hyperlipidemia Tobacco use and dependence Patient discharged home in stable condition Greater than 35 minutes was utilized and coordinating patient's discharge. Impression and plan of care have been directed as dictated by the signing physician. Rosalia Burns nurse practitioner acting as scribe for signing physician. Patient Condition at Discharge: Good Plan - Discharge Summary Discharge Rx Participant: No New Discharge Prescriptions: New Clopidogrel [Plavix] 75 mg PO DAILY #30 tab Insulin Detemir [Levemir Flexpen] 15 units SQ DAILY #5 pen Aspirin 325 mg PO DAILY tab Atorvastatin [Lipitor] 80 mg PO HS #30 tab Metoprolol Tartrate [Lopressor] 100 mg PO BID #60 tab Continue sitaGLIPtin [Januvia] 100 mg PO DAILY Spironolactone 25 mg PO DAILY Insulin Aspart [Insulin Aspart Flexpen] 7 unit SQ AC-TID Dapagliflozin Propanediol [Farxiga] 5 mg PO DAILY icosapent ethyL [Icosapent Ethyl] 1 gm PO BID dilTIAZem HCL [dilTIAZem HCL 24Hr ER (Xr)] 120 mg PO DAILY Ezetimibe [Zetia] 10 mg PO DAILY gemfibroziL [Lopid] 600 mg PO AC-BID metFORMIN HCL 500 mg PO BID Discontinued Metoprolol Tartrate [Lopressor] 50 mg PO BID Discharge Medication List Insulin Aspart [Insulin Aspart Flexpen] 7 unit SQ AC-TID 11/04/22 [History] Dapagliflozin Propanediol [Farxiga] 5 mg PO DAILY 11/05/22 [History] Ezetimibe [Zetia] 10 mg PO DAILY 11/05/22 [History] Spironolactone 25 mg PO DAILY 11/05/22 [History] dilTIAZem HCL [dilTIAZem HCL 24Hr ER (Xr)] 120 mg PO DAILY 11/05/22 [History] gemfibroziL [Lopid] 600 mg PO AC-BID 11/05/22 [History] icosapent ethyL [Icosapent Ethyl] 1 gm PO BID 11/05/22 [History] metFORMIN HCL 500 mg PO BID 11/05/22 [History] sitaGLIPtin [Januvia] 100 mg PO DAILY 11/05/22 [History] Aspirin 325 mg PO DAILY tab 11/08/22 [Rx] Atorvastatin [Lipitor] 80 mg PO HS #30 tab 11/08/22 [Rx] Clopidogrel [Plavix] 75 mg PO DAILY #30 tab 11/08/22 [Rx] Insulin Detemir [Levemir Flexpen] 15 units SQ DAILY #5 pen 11/08/22 [Rx] Metoprolol Tartrate [Lopressor] 100 mg PO BID #60 tab 11/08/22 [Rx] Follow up Appointment(s)/Referral(s): Celina Mckeon MD [STAFF PHYSICIAN] - 1 Week Rickie Reyes MD [Primary Care Provider] - 1 Week Rama Acosta DO [STAFF PHYSICIAN] - 1-2 Days Patient Instructions/Handouts: Carotid Artery Disease (DC), Ischemic Stroke (DC), Type 2 Diabetes Management for Adults (DC) Discharge Disposition: HOME SELF-CARE
[2022-11-08 14:08] VITALS: RESP 16
[2022-11-08 14:12] VITALS: BP 126/75; TEMP 97.4
[2022-11-08 14:15] VITALS: PULSE 61
--- NOTE | 2022-11-08 14:51 | P.PN ---
Progress Note - Text Progress Note Date: 11/08/22 Patient was down for MARISELA. Nursing reported no acute changes through the night. Plan is for discharge home today. Will follow-up with Dr. Acosta as an outpatient and discuss further surgical intervention for right symptomatic carotid stenosis. The impression and plan of care has been dictated as directed. Dr. Martinez I performed a history and examination of this patient, discussed the same with the dictator. I agree with the dictator's note ,documented as a scribe. Any additional findings or plans will be noted.
--- NOTE | 2022-11-08 14:58 | P.PN ---
Subjective Progress Note Date: 11/08/22 67-year-old right-handed male, who came to the hospital on , 11/04/2022 because of acute stroke. Patient states that he went to [facility] and he became disoriented, left arm became numb, couldn't do anything, would drop money with his left hand. He had slurred speech and he got lost going to his home, couldn't walk to his house was staggering and has to be carried to the house. He came to the hospital. Patient was diagnosed with an acute stroke. Patient states this is symptoms lasted for 24 hours and then resolved. At present he denies any symptoms although he is still slurred speech noticed on examination. Patient has history of hypertension, diabetes. Also has history of tobacco use 1 pack per day for 50 years, quit 1 year ago and started smoking 4 cigars a day in the last 1 year. Denies alcoholism. Patient has hypertension, diabetes, which is not controlled. Some other workup during his hospital visit consisted of: Lipid panels triglyceride of 776, cholesterol is 334, LDLs 188. Hemoglobin A1c is 10.8. CT of the head is reported as small area of decreased attenuation within the right occipital lobe could reflect area of acute ischemia measuring 1.41.3 cm. No evidence for acute intracranial hemorrhage. I personally reviewed the CT and agree with report. CT angiography of the head and neck was reported as right ICA demonstrate estimated diameter reduction 80-85% stenosis, while left is 85%. Carotid duplex: It is reported as 50-69% stenosis of the right carotid bifurcation by peak systolic velocity ratio. Ascend 50% stenosis of the left carotid bifurcation. 2-D echo was reported as left ventricular ejection fraction of 55-60%. Mild left ventricular hypertrophy. Moderate mitral annular calcification. Moderate aortic stenosis. MRI Brain: It is reported as acute/subacute CVA involving the right occipital lobe with 2 large confluent area out probably involving the cortex as well as other punctate foci also present scattered throughout the right occipital lobe. As well as acute/subacute left hernandez radiata CVA. Given multiple vascular distribution correlate for embolic phenomena. Nonspecific white matter changes likely secondary due to small vessel ischemic disease. I personally reviewed the MRI and I agree with the finding regarding the acute subacute over the right occipital but I feel the left hernandez radiata is a T2 shine thru and not acute or subacute stroke. I also reviewed MRI, agree with Dr. Street of findings. Objective - Vital Signs Vital signs: Vital Signs Temp 97.4 F L 11/08/22 11:10 Pulse 61 11/08/22 14:00 Resp 16 11/08/22 14:00 BP 126/75 11/08/22 11:10 Pulse Ox 97 11/08/22 11:10 FiO2 Intake & Output 11/07/22 11/08/22 11/08/22 18:59 06:59 18:59 Intake Total 1080 0 680 Balance 1080 0 680 Intake: IV 200 Oral 1080 0 480 Other: Voiding Method Toilet Toilet Toilet # Voids 2 1 1 - Exam On examination patient's mental status, speech and language function are normal. He does have [id number] dysarthria but no aphasia. He can name and repeat very well. Cranial nerve examination, pupils are equal, round and reacting, visual bishop are full, face is symmetric. His tongue protrudes to the right. Hearing is moderately decreased. On muscle strength testing there is no pronator drift and the strength is normal in arms and legs distally and proximally bilaterally. No ataxia for [id number] testing. Sensory touch is equal with no neglect. Evidence of umbilical hernia. No evidence of fasciculations noted in the arms or legs. - Labs CBC & Chem 7: 11/08/22 08:10 11/08/22 08:10 Labs: Abnormal Lab Results - Last 24 Hours (Table) 11/07/22 11/07/22 11/08/22 Range/Units 16:29 20:11 06:03 Sodium (137-145) mmol/L Glucose (74-99) mg/dL POC Glucose (mg/dL) 133 H 203 H 185 H (70-110) mg/dL 11/08/22 11/08/22 Range/Units 08:10 11:53 Sodium 136 L (137-145) mmol/L Glucose 177 H (74-99) mg/dL POC Glucose (mg/dL) 254 H (70-110) mg/dL Assessment and Plan Assessment: This is a 67-year-old gentleman who presented because of the left facial droop, left-sided weakness and slurred speech. His symptoms has improved. Acute to subacute ischemic stroke (Right occipital) Seems probable due to symptomatic Right ICA stenosis. On MRI has also reported acute to subacute left hernandez radiata but I feel it is T2 shine thru and not acute or subacute ischemia. Significant bilateral carotid stenosis: Right ICA is 80-85% while left is 85% per CTA. While duplex is 50-69% on right while left is <50% Dyslipidemia Diabetes mellitus Hypertension Hard of hearing. History of coronary artery disease status post stents as well as CABG Tobacco use, smoked 1 pack per day for 50 years, started smoking 4 cigars per day one year ago. Plan: Vascular surgery team on board for the significant carotid stenosis and they recommend endarectomy within 1-2 weeks as outpatient. Agree. Continue Aspirin 325 daily as well as Plavix 75 mg daily (patient was on sporadic ASA). Patient to remain on dual antiplatelets for now. Continue Lipitor 80 mg daily at bedtime for secondary stroke prophylaxis. Recommend LDL goal to be less than 70 Consider fibrates especially that he has a hypertriglyceridemia Cardiology input appreciated. Patient underwent MARISELA today, which was normal. No embolic source identified. Normal left ventricular size and systolic function. Normal appearance of the left atrial appendage. Mild mitral and tricuspid regurgitation. No shunting across the interatrial septum. Hemoglobin A1c 10.8. Recommend optimize control of diabetes to target A1c < 7.0. Lipid panel with cholesterol 334, LDL 188, HDL 34 and triglycerides 776. Agree with starting high intensity statins, Lipitor 80 mg. Target LDL <70. Consider Fibrate for hypertriglyceridemia. Continue neuro checks Cardiac monitoring PT, OT and [employer] are consulted Recommend complete tobacco cessation. Patient was counseled on the tobacco/cigar cessation. We'll defer the rest of the medical management the primary team DVT prophylaxis On subcu heparin 5000 units every hours Recommend the patient to follow-up with a neurologist as outpatient within 1-2 weeks.
--- NOTE | 2022-11-09 22:47 | CDI ---
Documentation Clarification Form Date: 11/09/2022 10:35:22 PM From: Geni Johnson Phone: Admit Date: 11/04/2022 4:47:00 PM Patient Name: Pb Lozada Visit Number: [id number] Discharge Date: 11/08/2022 4:36:00 PM ATTENTION: The Clinical Documentation Specialists (CDI) and [facility] Coding Staff appreciate your assistance in clarifying documentation. Please respond to the clarification below the line at the bottom and electronically sign. The CDI & [facility] Coding staff will review the response and follow-up if needed. Please note: Queries are made part of the Legal Health Record. If you have any questions, please contact the author of this message via ITS. Dr. Rickie Reyes Acuteischemicstroke is documented per ED Note and patient is noted to have BICA stenosis. Please clarify if there is a relationship between the diagnoses. History/Risk Factors: 67yo M, acuteischemicstrokewith lefthemiparesis, BICA stenosis, IDDMIIwithhyperglycemia, HTN, CAD sp CABG & stent, HLD, cigar smoker Clinical Indicators: UnenhancedCT of the brain: Small area of decreased attenuation within the right occipital lobe could reflect an area of acuteischemiameasuring 1.4 x 1.3 cm.No evidence foracute intracranial hemorrhage. Brain MRI: Acute/subacuteCVAinvolving the right occipital lobe with 2 larger confluent areas probably involving the cortex as well as other punctate foci also present scattered throughout the right occipital lobe. As well as acute/subacute left hernandez radiataCVA. Given multiple vascular distribution correlate forembolicphenomenon. Nonspecific white matter changes, likely secondary to small vesselischemic disease. Treatment: Vascular surgery team on board for the significant carotid stenosis and they recommend endarectomy within 1-2 weeks as outpatient. Continue with aspirin, Plavix and statin; Speech, PT and OT on consult Please clarify the relationship, if any, which is clinically appropriate for this patient: [ X ] Acute ischemic stroke is due to BICA stenosis [ ] Acute ischemic stroke is not due to BICA stenosis [ ] Other explanation of clinical findings (please specify) [ ] Unable to determine (no explanation for clinical findings) (Template Last Revised: September 2020) MTDD
== END 2022-11-08 16:36 | disposition home or self-care (01) | DRG 65 ==
LOC: EC 14:14 → 3SCARD 16:47
PROVIDERS: ADMIT Internal Medicine; ATTEND Internal Medicine
DX: I63.233 Cerebral infarction due to unspecified occlusion or stenosis of bilateral carotid arteries (principal); G81.94 Hemiplegia, unspecified affecting left nondominant side; I11.9 Hypertensive heart disease without heart failure; I08.3 Combined rheumatic disorders of mitral, aortic and tricuspid valves; E11.65 Type 2 diabetes mellitus with hyperglycemia; I25.10 Atherosclerotic heart disease of native coronary artery without angina pectoris; K42.9 Umbilical hernia without obstruction or gangrene; H91.90 Unspecified hearing loss, unspecified ear; E78.1 Pure hyperglyceridemia; T50.916A Underdosing of multiple unspecified drugs, medicaments and biological substances, initial encounter; F17.290 Nicotine dependence, other tobacco product, uncomplicated; R29.702 NIHSS score 2; R47.1 Dysarthria and anarthria; R29.810 Facial weakness; R51.9 Headache, unspecified; R41.0 Disorientation, unspecified; Z95.2 Presence of prosthetic heart valve; Z91.199 Patient's noncompliance with other medical treatment and regimen due to unspecified reason; Z95.1 Presence of aortocoronary bypass graft; Z95.5 Presence of coronary angioplasty implant and graft; I25.2 Old myocardial infarction; Z88.0 Allergy status to penicillin; Z79.84 Long term (current) use of oral hypoglycemic drugs; Z79.4 Long term (current) use of insulin; Z79.82 Long term (current) use of aspirin; Z91.148 Patient's other noncompliance with medication regimen for other reason; Z79.899 Other long term (current) drug therapy; Z82.49 Family history of ischemic heart disease and other diseases of the circulatory system
CPT/HCPCS: 36415; 70450; 70496; 70498; 70551; 71046; 80048; 80053; 80061; 82550; 83036; 83721; 84484; 85025; 85610; 85730; 93005; 93306; 93312; 93320; 93325; 93880; 94760; 99291

== ENCOUNTER 2022-12-16 01:20 | Inpatient (IN) | payer MEDICARE ==
[2022-12-16] MEDS ORDERED: SODIUM CHLORIDE 0.9% 1,000 ML IV STA (01:26)
[2022-12-16 02:00] LABS: Basophils # (A) 0.1 k/uL (0-0.2); Basophils % (A) 1 %; Eosinophils # (A) 0.5 k/uL (0-0.7); Eosinophils % (A) 5 %; HCT 49.9 % (39.0-53.0); HGB 16.4 gm/dL (13.0-17.5); Lymphocytes # (A) 2.6 k/uL (1.0-4.8); Lymphocytes % (A) 23 %; MCH 30.6 pg (25.0-35.0); MCHC 32.9 g/dL (31.0-37.0); MCV 93.1 fL (80.0-100.0); Mean Platelet Volume 10.5; Monocytes # (A) 0.5 k/uL (0-1.0); Monocytes % (A) 4 %; Neutrophils # (A) 7.5 k/uL (1.3-7.7); Neutrophils % (A) 65 %; Platelet Count 218 k/uL (150-450); RBC 5.36 m/uL (4.30-5.90); RDW 14.5 % (11.5-15.5); WBC 11.6 k/uL (3.8-10.6)
[2022-12-16 02:08] LABS: ALT 15 U/L (4-49); AST 17 U/L (17-59); African American GFR (CKD) >90 (>60 ml/min/1.73 sqM); Albumin 3.3 g/dL (3.5-5.0); Alkaline Phosphatase 85 U/L (38-126); Anion Gap 8 mmol/L; Blood Urea Nitrogen 13 mg/dL (9-20); Calcium 8.5 mg/dL (8.4-10.2); Carbon Dioxide 24 mmol/L (22-30); Chloride 105 mmol/L (98-107); Glucose 192 mg/dL (74-99); Non-African American GFR(CKD) >90 (>60 ml/min/1.73 sqM); Sodium 137 mmol/L (137-145); Total Bilirubin 0.4 mg/dL (0.2-1.3); Total Protein 6.2 g/dL (6.3-8.2)
[2022-12-16 02:12] LABS: INR 0.9 (<1.2); Partial Thromboplastin Time 24.2 sec (22.0-30.0); Prothrombin Time 9.9 sec (9.0-12.0)
--- NOTE | 2022-12-16 02:22 | ED ---
General Adult HPI - General Chief complaint: Altered Mental Status Stated complaint: WEAKNESS Time Seen by Provider: 12/16/22 01:22 Source: patient, family, EMS, RN notes reviewed, old records reviewed Mode of arrival: EMS Limitations: altered mental status - History of Present Illness Initial comments: 67-year-old male presents for evaluation of increased weakness and slurred speech. Patient had a stroke just over one month ago which did affect his speech in the left side of his body. According to his daughter who has accompanied the patient immediately near complete recovery. She states that one week ago he was able to cut the grass. Over the past 48 hours he's had progressive weakness and difficulty ambulating. Patient started also noted some intermittent worsening of his speech. The patient is alert and oriented. He denies pain complaints no chest pain or abdominal pain. No fever. No vomiting. - Related Data Home Medications Medication Instructions Recorded Confirmed Insulin Aspart [Insulin Aspart 7 unit SQ AC-TID 11/04/22 11/04/22 Flexpen] Dapagliflozin Propanediol [Farxiga] 5 mg PO DAILY 11/05/22 11/05/22 Ezetimibe [Zetia] 10 mg PO DAILY 11/05/22 11/05/22 Spironolactone 25 mg PO DAILY 11/05/22 11/05/22 dilTIAZem HCL [dilTIAZem HCL 24Hr 120 mg PO DAILY 11/05/22 11/05/22 ER (Xr)] gemfibroziL [Lopid] 600 mg PO AC-BID 11/05/22 11/05/22 icosapent ethyL [Icosapent Ethyl] 1 gm PO BID 11/05/22 11/05/22 metFORMIN HCL 500 mg PO BID 11/05/22 11/05/22 sitaGLIPtin [Januvia] 100 mg PO DAILY 11/05/22 11/05/22 Previous Rx's Medication Instructions Recorded Aspirin 325 mg PO DAILY tab 11/08/22 Atorvastatin [Lipitor] 80 mg PO HS #30 tab 11/08/22 Clopidogrel [Plavix] 75 mg PO DAILY #30 tab 11/08/22 Insulin Detemir [Levemir Flexpen] 15 units SQ DAILY #5 pen 11/08/22 Metoprolol Tartrate [Lopressor] 100 mg PO BID #60 tab 11/08/22 Allergies Allergy/AdvReac Type Severity Reaction Status Date / Time Penicillins Allergy Rash/Hives Verified 11/04/22 16:59 Review of Systems ROS Statement: Those systems with pertinent positive or pertinent negative responses have been documented in the HPI. ROS Other: All systems not noted in ROS Statement are negative. Past Medical History Past Medical History: Diabetes Mellitus, Hyperlipidemia, Hypertension, Myocardial Infarction ([place]) Additional Past Medical History / Comment(s): current umbilical hernia Last Myocardial Infarction Date:: 2010 History of Any Multi-Drug Resistant Organisms: None Reported Past Surgical History: Coronary Bypass/CABG, Heart Catheterization With Stent Additional Past Surgical History / Comment(s): recent cardiac cath, valve replacement Past Anesthesia/Blood Transfusion Reactions: No Reported Reaction Additional Past Anesthesia/Blood Transfusion Reaction / Comment(s): no surgical hx Date of Last Stent Placement:: 2010 Past Psychological History: No Psychological Hx Reported Smoking Status: Never smoker Past Alcohol Use History: None Reported Past Drug Use History: None Reported - Past Family History Mother Family Medical History: No Reported History Additional Family Medical History / Comment(s): Mother at age 72 from diabetes complications. No history of coronary artery disease. Father Family Medical History: Coronary Artery Disease (CAD), Myocardial Infarction ([place]) Additional Family Medical History / Comment(s): father at age 62 from myocardial infarction with history of coronary artery disease. Brother(s) Family Medical History: Coronary Artery Disease (CAD) Additional Family Medical History / Comment(s): Patient has 2 brothers one from myocardial infarction. One brother had myocardial infarction status post 3 vessel CABG. Sister(s) Additional Family Medical History / Comment(s): Patient has 2 sisters and one has diabetes. Patient has 3 daughters and 2 sons with no major medical problems. General Exam Limitations: altered mental status General appearance: alert, in no apparent distress Head exam: Present: atraumatic, normocephalic Eye exam: Present: normal appearance, PERRL ENT exam: Present: normal exam Neck exam: Present: normal inspection. Absent: tenderness, meningismus Respiratory exam: Present: normal lung sounds bilaterally. Absent: respiratory distress, wheezes Cardiovascular Exam: Present: regular rate, normal rhythm GI/Abdominal exam: Present: soft. Absent: distended, tenderness Extremities exam: Present: normal inspection Neurological exam: Present: alert, oriented X3, CN II-XII intact (Speech is clear, no facial droop), motor sensory deficit (Left leg 3 out of 5, right leg 4 out of 5 strength upper extremities are 5 out of 5 with no drift or ataxia) Psychiatric exam: Present: normal affect, normal mood Skin exam: Present: warm, dry, intact. Absent: cyanosis, diaphoretic Course Vital Signs 12/16/22 12/16/22 12/16/22 01:24 02:40 04:23 Temperature 97.5 F L Pulse Rate 61 58 L 72 Respiratory 20 18 18 Rate Blood Pressure 109/89 106/51 158/54 O2 Sat by Pulse 98 97 98 Oximetry Medical Decision Making - Medical Decision Making Was pt. sent in by a medical professional or institution (, PA, SOLAR SALES ADVISOR, urgent care, hospital, or long-term...) When possible be specific @ -No Did you speak to anyone other than the patient for history (EMS, parent, family, police, friend...)? What history was obtained from this source @ - daughter and paramedics Did you review nursing and triage notes (agree or disagree)? Why? @ -I reviewed and agree with nursing and triage notes Were old charts reviewed (outside hosp., previous admission, EMS record, old EKG, old radiological studies, urgent care reports/EKG's, long-term records)? Report findings @ -No old charts were reviewed Differential Diagnosis (chest pain, altered mental status, abdominal pain women, abdominal pain men, vaginal bleeding, weakness, fever, dyspnea, syncope, headache, dizziness, GI bleed, back pain, seizure, CVA, palpatations, mental health, musculoskeletal)? @ -Differential CVA Ischemic stroke, hemorrhagic stroke, brain tumor, atypical migraine, Wernicke's encephalopathy, seizure, multiple sclerosis, meningitis, encephalitis, hypoglycemia, Guillain-Workman, electrolytes disturbance, myasthenia gravis.... This is not meant to be an all-inclusive list EKG interpreted by me (3pts min.). @Sinus rhythm rate of 63, SD interval 180, QRS duration 90, QTC 391, no ST segment elevation. X-rays interpreted by me (1pt min.). @ -None done CT interpreted by me (1pt min.). @ -[Reviewed by myself, no intracranial hemorrhage or mass effect U/S interpreted by me (1pt. min.). @ -None done What testing was considered but not performed or refused? (CT, X-rays, U/S, labs)? Why? @ -None What meds were considered but not given or refused? Why? @ -None Did you discuss the management of the patient with other professionals (professionals i.e. , PA, SOLAR SALES ADVISOR, lab, RT, psych nurse, healthcare social worker, trim setter, teacher, customs officer, child welfare caseworker)? Give summary @ [facility] Was smoking cessation discussed for >3mins.? @ -No Was critical care preformed (if so, how long)? @ -No Were there social determinants of health that impacted care today? How? (Homelessness, low income, unemployed, alcoholism, drug addiction, transportation, low edu. Level, literacy, decrease access to med. care, usp, rehab)? @ -No Was there de-escalation of care discussed even if they declined (Discuss DNR or withdrawal of care, Hospice)? DNR status @ -No What co-morbidities impacted this encounter? (DM, HTN, Smoking, COPD, CAD, Cancer, CVA, ARF, Chemo, Hep., AIDS, mental health diagnosis, sleep apnea, morbid obesity)? @ Diabetes, hypertension, CVA Was patient admitted / discharged? Hospital course, mention meds given and route, prescriptions, significant lab abnormalities, going to OR and other pertinent info. @ -67-year-old male with 48 hours of progressive weakness and difficulty ambulating. Patient does have focal deficit in the left lower extremity. Patient's symptoms are greater than 24 hours. He had recent CVA affecting the left side of his body but was reported to have had a complete recovery. He is currently on aspirin and Plavix. Brain CT does not show any acute hemorrhage or acute CVA. Laboratory testing is unremarkable. Given the progression of symptoms in his difficulty ambulating he will be admitted to internal medicine with neurology on consult. He will also benefit from PT consult. Undiagnosed new problem with uncertain prognosis? @ -No Drug Therapy requiring intensive monitoring for toxicity (Heparin, Nitro, Insulin, Cardizem)? @ -No Were any procedures done? @ -No Diagnosis/symptom? @ CVA, progressive weakness Acute, or Chronic, or Acute on Chronic? @ Acute Uncomplicated (without systemic symptoms) or Complicated (systemic symptoms)? @ -Complicated Side effects of treatment? @ -No Exacerbation, Progression, or Severe Exacerbation? @ -No Poses a threat to life or bodily function? How? (Chest pain, [place], [place], pneumonia, PE, COPD, DKA, ARF, appy, cholecystitis, CVA, Diverticulitis, Homicidal, Suicidal, threat to staff... and all critical care pts) @ -[Yes, CVA - Lab Data Result diagrams: 12/16/22 01:45 12/16/22 01:45 Lab Results 12/16/22 12/16/22 12/16/22 Range/Units 01:45 01:45 01:45 WBC 11.6 H (3.8-10.6) k/uL RBC 5.36 (4.30-5.90) m/uL Hgb 16.4 (13.0-17.5) gm/dL Hct 49.9 (39.0-53.0) % MCV 93.1 (80.0-100.0) fL MCH 30.6 (25.0-35.0) pg MCHC 32.9 (31.0-37.0) g/dL RDW 14.5 (11.5-15.5) % Plt Count 218 (150-450) k/uL MPV 10.5 Neutrophils % 65 % Lymphocytes % 23 % Monocytes % 4 % Eosinophils % 5 % Basophils % 1 % Neutrophils # 7.5 (1.3-7.7) k/uL Lymphocytes # 2.6 (1.0-4.8) k/uL Monocytes # 0.5 (0-1.0) k/uL Eosinophils # 0.5 (0-0.7) k/uL Basophils # 0.1 (0-0.2) k/uL PT 9.9 (9.0-12.0) sec INR 0.9 (<1.2) APTT 24.2 (22.0-30.0) sec Sodium 137 (137-145) mmol/L Potassium 4.0 (3.5-5.1) mmol/L Chloride 105 (98-107) mmol/L Carbon Dioxide 24 (22-30) mmol/L Anion Gap 8 mmol/L BUN 13 (9-20) mg/dL Creatinine 0.68 (0.66-1.25) mg/dL Est GFR (CKD-EPI)AfAm >90 (>60 ml/min/1.73 sqM) Est GFR (CKD-EPI)NonAf >90 (>60 ml/min/1.73 sqM) Glucose 192 H (74-99) mg/dL Calcium 8.5 (8.4-10.2) mg/dL Total Bilirubin 0.4 (0.2-1.3) mg/dL AST 17 (17-59) U/L ALT 15 (4-49) U/L Alkaline Phosphatase 85 (38-126) U/L Troponin I (0.000-0.034) ng/mL Total Protein 6.2 L (6.3-8.2) g/dL Albumin 3.3 L (3.5-5.0) g/dL 12/16/22 Range/Units 01:45 WBC (3.8-10.6) k/uL RBC (4.30-5.90) m/uL Hgb (13.0-17.5) gm/dL Hct (39.0-53.0) % MCV (80.0-100.0) fL MCH (25.0-35.0) pg MCHC (31.0-37.0) g/dL RDW (11.5-15.5) % Plt Count (150-450) k/uL MPV Neutrophils % % Lymphocytes % % Monocytes % % Eosinophils % % Basophils % % Neutrophils # (1.3-7.7) k/uL Lymphocytes # (1.0-4.8) k/uL Monocytes # (0-1.0) k/uL Eosinophils # (0-0.7) k/uL Basophils # (0-0.2) k/uL PT (9.0-12.0) sec INR (<1.2) APTT (22.0-30.0) sec Sodium (137-145) mmol/L Potassium (3.5-5.1) mmol/L Chloride (98-107) mmol/L Carbon Dioxide (22-30) mmol/L Anion Gap mmol/L BUN (9-20) mg/dL Creatinine (0.66-1.25) mg/dL Est GFR (CKD-EPI)AfAm (>60 ml/min/1.73 sqM) Est GFR (CKD-EPI)NonAf (>60 ml/min/1.73 sqM) Glucose (74-99) mg/dL Calcium (8.4-10.2) mg/dL Total Bilirubin (0.2-1.3) mg/dL AST (17-59) U/L ALT (4-49) U/L Alkaline Phosphatase (38-126) U/L Troponin I <0.012 (0.000-0.034) ng/mL Total Protein (6.3-8.2) g/dL Albumin (3.5-5.0) g/dL Disposition Clinical Impression: Cerebrovascular accident (CVA), Weakness Disposition: ADMITTED IP TO THIS HOSP Condition: Serious Is patient prescribed a controlled substance at d/c from ED?: No Time of Disposition: 03:55
--- NOTE | 2022-12-16 03:37 | CT ---
EXAM: CT Head Without Intravenous Contrast CLINICAL HISTORY: ITS.REASON CT Reason: Neuro deficit, acute, stroke suspected TECHNIQUE: Axial computed tomography images of the head/brain without intravenous contrast. CTDI is This CT exam was performed using one or more of the following dose reduction techniques: automated exposure control, adjustment of the mA and/or kV according to patient size, and/or use of iterative reconstruction technique. COMPARISON: 11/04/2022 FINDINGS: Brain: Head CT negative for acute intracranial abnormality. Chronic lacunar infarct left basal ganglia. No hemorrhage. No significant white matter disease. Ventricles: Unremarkable. No ventriculomegaly. Bones/joints: Right TMJ dislocation. There is subluxation of the right TMJ impression:. No acute fracture. Soft tissues: Unremarkable. Sinuses: Unremarkable as visualized. No acute sinusitis. Mastoid air cells: Unremarkable as visualized. No mastoid effusion. Other findings: 49.2 mGy and DLP is 1319.4 mGy-cm. IMPRESSION: No acute findings in the head/brain.
[2022-12-16] MEDS ORDERED: NALOXONE 0.4 MG/ML 1 ML VIAL IV PRN (03:55)
[2022-12-16] MEDS: SODIUM CHLORIDE 0.9% 1,000 ML IV SCH ×4 (04:22→23:30)
[2022-12-16] MEDS ORDERED: ASPIRIN 325 MG TAB PO SCH (09:00)
[2022-12-16] MEDS ORDERED: CLOPIDOGREL 75 MG TAB PO SCH (09:00)
[2022-12-16 11:16] LABS: Chol/HDL Ratio 5.09 Ratio; LDL Cholesterol,Calculated 77.5 mg/dL (0.0-131.0)
[2022-12-16] MEDS ORDERED: DEXTROSE 50% SYRINGE 50 ML IVP PRN ×2 (13:46)
[2022-12-16] MEDS: INSULIN DETEMIR (LEVEMIR) 100 UNIT/ML SYR SQ SCH (13:55)
[2022-12-16] MEDS: DAPAGLIFLOZIN PROPANEDIOL 5 MG TABLET PO SCH (14:13)
[2022-12-16] MEDS: Icosapent Ethyl [Icosapent Ethyl] 1 GM Capsule PO SCH ×2 (14:14→20:59)
--- NOTE | 2022-12-16 14:43 | P.GSCN ---
History of Present Illness Consult date: 12/16/22 Reason for Consult: Symptomatic right ICA stenosis Requesting physician: Jayce Coffey History of present illness: 67-year-old male patient who presented to the emergency department during the middle of the night with complaints of slurred speech and left upper and lower extremity weakness. Patient has a past medical history including diabetes mellitus, hyperlipidemia, hypertension, [place] status post stent and CABG and valve replacement, history of previous smoker, occasionally smokes cigar. Patient was recently hospitalized for similar symptoms in October of this year and diagnosed with acute ischemic stroke. He was seen by vascular surgery at that time and was supposed to follow-up with Dr. Acosta in the office to discuss surgical intervention for right symptomatic ICA stenosis. Patient states he he did not h ave an appointment, his appointment is now coming up December 23. He states that symptoms began yesterday. He states that after his last hospitalization his symptoms had resolved and he was able to perform all of his ADLs. His preference workup in the emergency department he had a CAT scan of the brain that showed no acute findings in the head/brain. Vascular surgery was consulted for carotid stenosis. Patient continues to have left-sided weakness and slurred speech. He denies any visual changes, but is having difficulty swallowing. He was seen by speech therapy and failed his swallow test. He denies any chest pain, shortness of breath, abdominal pain, nausea or vomiting. Patient has f ocal hernia that he has had for many years without any pain. Patient has been taking his Plavix and aspirin as ordered from previous hospitalization. During his last admission workup included CT angiogram head and neck that reported right ICA demonstrating estimated diameter reduction of 80-85% with left-sided internal carotid artery estimated at 85%. Carotid duplex reported 50-69% stenosis of the right carotid bifurcation and less than 50% stenosis of the left carotid bifurcation Echocardiogram EF 55-60%, mild LVH, moderate mitral annular calcification, trace mitral regurgitation, moderate aortic stenosis, mild tricuspid regurgitation MRI brain without contrast reported acute/subacute CVA involving the right occipital lobe with 2 larger confluent areas probably involving the cortex as w ell as other punctate foci also present scattered throughout the right occipital lobe. Also an acute/subacute left hernandze rachel he had a CVA. Given multiple vascular distribution correlate for embolic phenomenon. Nonspecific white matter changes likely secondary to small vessel ischemia disease Review of Systems A 14 point review systems was completed all pertinent positives and negatives as stated in the HPI. Past Medical History Past Medical History: Diabetes Mellitus, Hyperlipidemia, Hypertension, Myocardial Infarction ([place]) Additional Past Medical History / Comment(s): current umbilical hernia Last Myocardial Infarction Date:: 2010 History of Any Multi-Drug Resistant Organisms: None Reported Past Surgical History: Coronary Bypass/CABG, Heart Catheterization With Stent Additional Past Surgical History / Comment(s): recent cardiac cath, valve replacement Past Anesthesia/Blood Transfusion Reactions: No Reported Reaction Additional Past Anesthesia/Blood Transfusion Reaction / Comm: no surgical hx Date of Last Stent Placement:: 2010 Past Psychological History: No Psychological Hx Reported Smoking Status: Never smoker Past Alcohol Use History: None Reported Past Drug Use History: None Reported - Past Family History Mother Family Medical History: No Reported History Additional Family Medical History / Comment(s): Mother at age 72 from diabetes complications. No history of coronary artery disease. Father Family Medical History: Coronary Artery Disease (CAD), Myocardial Infarction ([place]) Additional Family Medical History / Comment(s): father at age 62 from myocardial infarction with history of coronary artery disease. Brother(s) Family Medical History: Coronary Artery Disease (CAD) Additional Family Medical History / Comment(s): Patient has 2 brothers one from myocardial infarction. One brother had myocardial infarction status post 3 vessel CABG. Sister(s) Additional Family Medical History / Comment(s): Patient has 2 sisters and one has diabetes. Patient has 3 daughters and 2 sons with no major medical problems. Medications and Allergies Home Medications Medication Instructions Recorded Confirmed Type Insulin Aspart [Insulin Aspart 7 unit SQ AC-TID 11/04/22 12/16/22 History Flexpen] Dapagliflozin Propanediol [Farxiga] 5 mg PO DAILY 11/05/22 12/16/22 History Ezetimibe [Zetia] 10 mg PO DAILY 11/05/22 12/16/22 History Spironolactone 25 mg PO DAILY 11/05/22 12/16/22 History gemfibroziL [Lopid] 600 mg PO AC-BID 11/05/22 12/16/22 History icosapent ethyL [Icosapent Ethyl] 1 gm PO BID 11/05/22 12/16/22 History metFORMIN HCL 500 mg PO BID 11/05/22 12/16/22 History sitaGLIPtin [Januvia] 100 mg PO DAILY 11/05/22 12/16/22 History Aspirin 325 mg PO DAILY tab 11/08/22 12/16/22 Rx Atorvastatin [Lipitor] 80 mg PO HS #30 tab 11/08/22 12/16/22 Rx Clopidogrel [Plavix] 75 mg PO DAILY #30 tab 11/08/22 12/16/22 Rx Insulin Detemir [Levemir Flexpen] 15 units SQ DAILY #5 pen 11/08/22 12/16/22 Rx Metoprolol Tartrate [Lopressor] 100 mg PO BID #60 tab 11/08/22 12/16/22 Rx Allergies Allergy/AdvReac Type Severity Reaction Status Date / Time Penicillins Allergy Rash/Hives Verified 12/16/22 10:36 Surgical - Exam Vital Signs Temp Pulse Resp BP Pulse Ox 97.5 F L 61 20 109/89 98 12/16/22 01:24 12/16/22 01:24 12/16/22 01:24 12/16/22 01:24 12/16/22 01:24 General appearance: The patient is alert, oriented, appears in no acute distress. HET: Head is normocephalic and atraumatic. Pupils are equal and reactive. Neck: Supple without lymphadenopathy. Trachea midline. Right carotid bruit. Heart: Regular. Lungs: Equal expansion, normal respiratory effort. Abdomen: Soft, nontender, umbilical hernia, soft, nondistended. Extremities: Normal skin color and turgor. Bilateral palpable radial pulses. Neurological: Patient with slurred speech, left upper and lower extremity weakness. Patient has facial symmetry, tongue protrudes midline. Results - Labs 12/16/22 01:45 12/16/22 01:45 Abnormal Lab Results - Last 24 Hours (Table) 12/16/22 12/16/22 12/16/22 Range/Units 01:45 01:45 01:45 WBC 11.6 H (3.8-10.6) k/uL Glucose 192 H (74-99) mg/dL Total Protein 6.2 L (6.3-8.2) g/dL Albumin 3.3 L (3.5-5.0) g/dL Triglycerides 376.00 H (0.00-149.00) mg/dL VLDL Cholesterol, Calc 75.20 H (5.00-40.00) mg/dL HDL Cholesterol 37.30 L (40.00-60.00) mg/dL Diabetes panel 12/16/22 12/16/22 Range/Units 01:45 01:45 Sodium 137 (137-145) mmol/L Potassium 4.0 (3.5-5.1) mmol/L Chloride 105 (98-107) mmol/L Carbon Dioxide 24 (22-30) mmol/L BUN 13 (9-20) mg/dL Creatinine 0.68 (0.66-1.25) mg/dL Glucose 192 H (74-99) mg/dL Calcium 8.5 (8.4-10.2) mg/dL AST 17 (17-59) U/L ALT 15 (4-49) U/L Alkaline Phosphatase 85 (38-126) U/L Total Protein 6.2 L (6.3-8.2) g/dL Albumin 3.3 L (3.5-5.0) g/dL Triglycerides 376.00 H (0.00-149.00) mg/dL HDL Cholesterol 37.30 L (40.00-60.00) mg/dL Calcium panel 12/16/22 Range/Units 01:45 Calcium 8.5 (8.4-10.2) mg/dL Albumin 3.3 L (3.5-5.0) g/dL Pituitary panel 12/16/22 Range/Units 01:45 Sodium 137 (137-145) mmol/L Potassium 4.0 (3.5-5.1) mmol/L Chloride 105 (98-107) mmol/L Carbon Dioxide 24 (22-30) mmol/L BUN 13 (9-20) mg/dL Creatinine 0.68 (0.66-1.25) mg/dL Glucose 192 H (74-99) mg/dL Calcium 8.5 (8.4-10.2) mg/dL Adrenal panel 12/16/22 Range/Units 01:45 Sodium 137 (137-145) mmol/L Potassium 4.0 (3.5-5.1) mmol/L Chloride 105 (98-107) mmol/L Carbon Dioxide 24 (22-30) mmol/L BUN 13 (9-20) mg/dL Creatinine 0.68 (0.66-1.25) mg/dL Glucose 192 H (74-99) mg/dL Calcium 8.5 (8.4-10.2) mg/dL Total Bilirubin 0.4 (0.2-1.3) mg/dL AST 17 (17-59) U/L ALT 15 (4-49) U/L Alkaline Phosphatase 85 (38-126) U/L Total Protein 6.2 L (6.3-8.2) g/dL Albumin 3.3 L (3.5-5.0) g/dL Assessment and Plan Assessment: 1. Acute ischemic stroke with left-sided weakness and slurred speech 2. Severe bilateral internal carotid artery stenosis, symptomatic on the right 3. Diabetes mellitus 4. Coronary artery disease status post CABG and stent 5. Hypertension 6. Hyperlipidemia 7. Former smoker. Plan: 1. Continue workup from neurology 2. Continue dual antiplatelet therapy and statin 3. Continue medical management 4. Await further recommendations from neurology 5. PT/OT/ST 6. Keep nothing by mouth for now, patient failed swallow study 7. Further recommendations forthcoming. Patient will need surgical intervention for her symptomatically right ICA stenosis, timing to be determ ined. Thank you for this consultation, we will continue to follow. The impression and plan of care has been dictated as directed. Dr. Acosta I performed a history and examination of this patient, discussed the same with the dictator. I agree with the dictator's note ,documented as a scribe. Any additional findings or plans will be noted.
[2022-12-16] MEDS ORDERED: TICAGRELOR 90 MG TAB PO STA (15:09)
--- NOTE | 2022-12-16 15:15 | P.CNNES ---
History of Present Illness Consult date: 12/16/22 Requesting physician: Erick Fierro Reason for Consult: CVA History of Present Illness: This is a 67-year-old gentleman with history of stroke in the right occipital, bilateral carotid stenosis and symptomatic right ICA, hypertension, coronary artery disease status post CABG presented emergency department because of left- sided weakness. She is known to our neurology team. He stated that yesterday in the afternoon he had left facial weakness left-sided weakness and decreased numbness. He is on aspirin and Plavix at home and he's been compliant taking those medications. Patient was seen last by our team on 11/09/2022 in which he presented with left facial droop left-sided weakness and slurred speech which his symptoms has improved and the MRI showed an acute to subacute stroke over the right occipital and it was felt the patient had symptomatic right ICA. Vascular surgery team was on board and they recommended endarterectomy within 1- 2 weeks as an outpatient. Upon asking the patient if he followed of vascular surgery he cannot tell me. Per the ED team is seems the patient was accompanied with his daughter and is seems the patient had the progressive weakness and difficulty ambulating over the past 40 hours prior to presenting our facility. It seems also he had the some intermittent worsening of his speech. As stated earlier the patient was seen in our facility last on 11/09/2022 and he had the detailed stroke workup. Please refer to ourfurther details. Some other workup during this hospital visit consisted of: Panel is tried to start 376, cholesterol 190, LDL 77 and HDL is 37. CT of the head is reported as no acute finding in the head/brain. Personally reviewed the CT of the head and there is no acute or subacute ischemia. No IV TPA per the ED team since his symptoms has been 48 hours and the risk outweighed the benefits. Review of Systems Review of system: The 12 point system was reviewed and apparent positive and negative per HPI. Past Medical History Past Medical History: Diabetes Mellitus, Hyperlipidemia, Hypertension, Myocardial Infarction ([place]) Additional Past Medical History / Comment(s): current umbilical hernia Last Myocardial Infarction Date:: 2010 History of Any Multi-Drug Resistant Organisms: None Reported Past Surgical History: Coronary Bypass/CABG, Heart Catheterization With Stent Additional Past Surgical History / Comment(s): recent cardiac cath, valve replacement Past Anesthesia/Blood Transfusion Reactions: No Reported Reaction Additional Past Anesthesia/Blood Transfusion Reaction / Comment(s): no surgical hx Date of Last Stent Placement:: 2010 Past Psychological History: No Psychological Hx Reported Smoking Status: Never smoker Past Alcohol Use History: None Reported Past Drug Use History: None Reported - Past Family History Mother Family Medical History: No Reported History Additional Family Medical History / Comment(s): Mother at age 72 from diabetes complications. No history of coronary artery disease. Father Family Medical History: Coronary Artery Disease (CAD), Myocardial Infarction ([place]) Additional Family Medical History / Comment(s): father at age 62 from myocardial infarction with history of coronary artery disease. Brother(s) Family Medical History: Coronary Artery Disease (CAD) Additional Family Medical History / Comment(s): Patient has 2 brothers one from myocardial infarction. One brother had myocardial infarction status post 3 vessel CABG. Sister(s) Additional Family Medical History / Comment(s): Patient has 2 sisters and one has diabetes. Patient has 3 daughters and 2 sons with no major medical problems. Medications and Allergies Home Medications Medication Instructions Recorded Confirmed Type Insulin Aspart [Insulin Aspart 7 unit SQ AC-TID 11/04/22 12/16/22 History Flexpen] Dapagliflozin Propanediol [Farxiga] 5 mg PO DAILY 11/05/22 12/16/22 History Ezetimibe [Zetia] 10 mg PO DAILY 11/05/22 12/16/22 History Spironolactone 25 mg PO DAILY 11/05/22 12/16/22 History gemfibroziL [Lopid] 600 mg PO AC-BID 11/05/22 12/16/22 History icosapent ethyL [Icosapent Ethyl] 1 gm PO BID 11/05/22 12/16/22 History metFORMIN HCL 500 mg PO BID 11/05/22 12/16/22 History sitaGLIPtin [Januvia] 100 mg PO DAILY 11/05/22 12/16/22 History Aspirin 325 mg PO DAILY tab 11/08/22 12/16/22 Rx Atorvastatin [Lipitor] 80 mg PO HS #30 tab 11/08/22 12/16/22 Rx Clopidogrel [Plavix] 75 mg PO DAILY #30 tab 11/08/22 12/16/22 Rx Insulin Detemir [Levemir Flexpen] 15 units SQ DAILY #5 pen 11/08/22 12/16/22 Rx Metoprolol Tartrate [Lopressor] 100 mg PO BID #60 tab 11/08/22 12/16/22 Rx Allergies Allergy/AdvReac Type Severity Reaction Status Date / Time Penicillins Allergy Rash/Hives Verified 12/16/22 10:36 Physical Examination - Vital Signs Vital Signs: Vital Signs Temp Pulse Resp BP Pulse Ox 12/16/22 12:00 65 16 127/64 96 12/16/22 07:11 57 L 18 122/74 96 12/16/22 06:23 80 16 149/86 100 12/16/22 04: 72 18 158/54 98 12/16/22 02:40 58 L 18 106/51 97 12/16/22 01:24 97.5 F L 61 20 109/89 98 Intake and Output 12/15/22 12/16/22 12/16/22 22:59 06:59 14:59 Other: Weight 75.296 kg GENERAL: The patient is sitting in a recliner chair and not in acute distress. CHEST: No edema in extremities. LUNG:Not labored breathing. NEUROLOGICAL: Higher mental function: The patient is awake, alert, oriented to self, place and time. Patient is following simple commands. No aphasia and no neglect. Cranial nerves: The pupils are round, equal and reactive to light. Visual bishop full to confrontation. Extraocular movement is intact no nystagmus is noted. Facial sensation is normal to touch throughout. The facial strength is mild left lower facial weakness. Hearing is moderately decreased bilaterally to hand rub. Has moderate to severe dysarthria is noted. Shoulder shrug is normal bilaterally. Motor: The strength is left upper extremity is 3 to weak 4- and has left pronator drift. Has weak hand pot builder. Left lower is 4-4+ (more weak proximal than distal). Otherwise 5 over 5 throughout right. Decrease tone predominately left upper. Otherwise normal tone and bulk. Cerebellum: Had to assess finger to nose on left because of weakness but normal on the right. Sensation: Sensation is decreased on the left. Reflexes (right/left): 2+ throughout. Plantars is mute bilaterally. Results - Laboratory Findings CBC and BMP: 12/16/22 01:45 12/16/22 01:45 Abnormal Lab Findings: Abnormal Labs 12/16/22 12/16/22 12/16/22 01:45 01:45 01:45 WBC 11.6 H Glucose 192 H Total Protein 6.2 L Albumin 3.3 L Triglycerides 376.00 H VLDL Cholesterol, Calc 75.20 H HDL Cholesterol 37.30 L Assessment and Plan Assessment: This is a 67-year-old gentleman who presented that because of left-sided weak ness and numbness with dysarthria. Patient stated that his symptoms began on 12/15/2022 in the afternoon for the ED was accompanied with his daughter and is seems his symptoms has been progressive for the last 48 hours prior to presenting to the hospital. Acute ischemic stroke and etiology likely due to his symptomatic Right ICA stenosis Recent stroke in the second week of October 2022 in which she had the right occipital and was also felt likely due to symptomatic right ICA stenosis. At that time also patient had the left-sided weakness with facial droop and slurred speech and his symptoms resolved. Patient also had the MRI which also reported acute to subacute left hernandez radiata but was felt likely T2 shine through and not acute or subacute stroke. Significant bilateral carotid stenosis. Right ICA is 80-85% while left is 85% per CTA while the duplex is 50-69% on the right while left is less than 50% Dyslipidemia Diabetes mellitus Hypertension Hard of hearing History of coronary artery disease status post stent as well as CABG Tobacco use Plan: I stop Plavix since the patient failed the medication. I started the patient on Brilinta 90mg bid with loading of 180mg. I decreased ASA from 325mg to 81mg daily. Continue Lipitor 80 mg daily at bedtime for secondary stroke prophylaxis. I consulted vascular surgery team because of his symptomatic right ICA stenosis and this these to be addressed during this admission. He had similar presentation just a bit more than a month ago. I ordered MRI of the brain and carotid duplex Hemoglobin A1c is ordered by the primary team is pending Recommend permissive hypertension for the next 48 hours for now. Treat if SBP >220 or DBP >110. Neurochecks Cardiac monitoring PT, OT and RENDERER are consulted We'll defer the rest of the medical management to the primary team For DVT prophylaxis I start the patient on subcu heparin 5000 units every 12 hours The plan was discussed with the patient. Thank you for the consultation Time with Patient: Greater than 30
--- NOTE | 2022-12-16 16:34 | US ---
EXAMINATION TYPE: US carotid duplex BILAT DATE OF EXAM: 12/16/2022 COMPARISON: CLINICAL INDICATION: Male, 67 years old with history of stroke. carotid stenosis; Slurring and left arm droop per RN notes. Poor historian. Portable EC patient TECHNIQUE: Carotid duplex ultrasound examination. Indirect Doppler criteria was utilized. FINDINGS: EXAM MEASUREMENTS: RIGHT: Peak Systolic Velocity (PSV) cm/sec ----- Right CCA: 51.4 ----- Right ICA: 99.5 ----- Right ECA: 171.7 ICA/CCA ratio: 1.9 RIGHT: End Diastole cm/sec ----- Right CCA: 9.5 ----- Right ICA: 21.9 ----- Right ECA: 0.0 LEFT: Peak Systolic Velocity (PSV) cm/sec ----- Left CCA: 60.7 ----- Left ICA: 138.3 ----- Left ECA: 187.3 ICA/CCA ratio: 2.3 LEFT: End Diastole cm/sec ----- Left CCA: 9.2 ----- Left ICA: 31.7 ----- Left ECA: 0.0 VERTEBRALS (direction of flow): Right Vertebral: Antegrade Left Vertebral: Antegrade Rhythm: Normal UNIVERSITY TUTOR NOTES: Elevated bilateral ECA velocities and proximal left ICA velocity. Left significan t stenosis. Wall thickening and plaque visualized bilaterally. IMPRESSION: 1. Less than 50% stenosis of the right carotid bifurcation. 2. 50-69% stenosis stenosis of the left carotid bifurcation. Criteria for Assigning % of Stenosis / Diameter reduction (Estimation based on the indirect measurements of the internal carotid artery velocities (ICA PSV). 1. Normal (no stenosis)=ICA PSV < 125 cm/s: ratio < 2.0: ICA EDV<40 cm/s. 2. Less than 50% stenosis=ICA PSV < 125 cm/s: ratio < 2.0: ICA EDV<40 cm/s. 3. 50 to 69% stenosis=ICA PSV of 125 to 230 cm/s: ration 2.0 ? 4.0: ICA EDV 40-100 cm/s. 4. Greater than 70% stenosis to near occlusion= ICA PSV > 230 cm/s: ratio > 4.0: ICA EDV > 100 cm/s. 5. Near occlusion= ICA PSV velocities may be low or undetectable: variable ratio and ICA EDV. 6. Total occlusion=unable to detect flow.
[2022-12-16 17:05] LABS: Glucose,Whole Blood 163 mg/dL (70-110)
[2022-12-16] MEDS: INSULIN ASPART (NovoLOG) 100 UNIT/ML VIAL SQ SCH ×2 (17:28→21:08)
[2022-12-16] MEDS: ATORVASTATIN 80 MG TAB PO SCH (20:59)
[2022-12-16] MEDS: METOPROLOL TARTRATE 50 MG TAB PO SCH (20:59)
[2022-12-16] MEDS: TICAGRELOR 90 MG TAB PO SCH (20:59)
[2022-12-16 21:07] LABS: Glucose,Whole Blood 143 mg/dL (70-110)
[2022-12-16] MEDS: HEPARIN SODIUM,PORCINE/PF 5,000 UNIT/0.5 ML SYRINGE SQ SCH (21:11)
[2022-12-17 06:18] LABS: Glucose,Whole Blood 180 mg/dL (70-110)
[2022-12-17] MEDS: INSULIN DETEMIR (LEVEMIR) 100 UNIT/ML SYR SQ SCH (06:32)
[2022-12-17] MEDS: INSULIN ASPART (NovoLOG) 100 UNIT/ML VIAL SQ SCH ×4 (06:32→20:19)
--- NOTE | 2022-12-17 08:51 | P.PN ---
Subjective Progress Note Date: 12/17/22 Principal diagnosis: Carotid stenosis Pb was seen and examined today as a follow-up for acute ischemic stroke affecting his speech and left-sided weakness. He continues to have dysarthria and left sided weakness. Patient is to be reevaluated today by speech therapy as he failed his swallow study yesterday. Neurology has seen patient and switched his Plavix to Brilinta. MRI of brain is ordered. He denies any other focal deficits. His sister is at the bedside. He underwent carotid duplex yesterday reporting right carotid bifurcation less than 50% ICA stenosis and l eft carotid bifurcation 50-69% stenosis which is discordant from previous findings. Objective - Vital Signs Vital signs: Vital Signs Temp 98.1 F 12/16/22 20:30 Pulse 91 12/17/22 04:00 Resp 18 12/17/22 04:00 BP 148/70 12/17/22 04:00 Pulse Ox 98 12/17/22 04:00 FiO2 Intake & Output 12/16/22 12/17/22 12/17/22 18:59 06:59 18:59 Intake Total 0 Balance 0 Weight 75.296 kg Intake: Oral 0 Other: Voiding Method Urinal # Voids 3 - Exam General appearance: The patient is alert, oriented, appears in no acute distress. HET: Head is normocephalic and atraumatic. Pupils are equal and reactive. Neck: Supple without lymphadenopathy. Trachea midline. Right carotid bruit. Heart: Regular. Lungs: Equal expansion, normal respiratory effort. Abdomen: Soft, nontender, umbilical hernia, soft, nondistended. Extremities: Normal skin color and turgor. Bilateral palpable radial pulses. Neurological: Patient with slurred speech, left upper and lower extremity weakness. Patient has left facial droop. - Labs CBC & Chem 7: 12/16/22 01:45 12/16/22 01:45 Labs: Abnormal Lab Results - Last 24 Hours (Table) 12/16/22 12/16/22 12/16/22 Range/Units 01:45 17:03 21:06 POC Glucose (mg/dL) 163 H 143 H (70-110) mg/dL Triglycerides 376.00 H (0.00-149.00) mg/dL VLDL Cholesterol, Calc 75.20 H (5.00-40.00) mg/dL HDL Cholesterol 37.30 L (40.00-60.00) mg/dL 12/17/22 Range/Units 06:17 POC Glucose (mg/dL) 180 H (70-110) mg/dL Triglycerides (0.00-149.00) mg/dL VLDL Cholesterol, Calc (5.00-40.00) mg/dL HDL Cholesterol (40.00-60.00) mg/dL Assessment and Plan Assessment: 1. Acute ischemic stroke with left-sided weakness and slurred speech 2. Severe bilateral internal carotid artery stenosis, symptomatic on the right. Carotid duplex with discordant findings from previous workup 3. Diabetes mellitus 4. Coronary artery disease status post CABG and stent 5. Hypertension 6. Hyperlipidemia 7. Former smoker. Plan: 1. Continue workup from neurology 2. Continue dual antiplatelet therapy and statin as recommended by neurology 3. Await further recommendations from neurology on timing of surgical intervention 4. Cardiology consulted for cardiac clearance for right carotid artery endarterectomy 5. Rest of medical management deferred to primary medical team 6. PT/OT/ST 7. Keep nothing by mouth for now, patient failed swallow study 8. Further recommendations forthcoming. Recommend inpatient surgical intervention for symptomatic right ICA stenosis, timing to be determined. Thank you for this consultation, we will continue to follow. The impression and plan of care has been dictated as directed. Dr. Acosta I performed a history and examination of this patient, discussed the same with the dictator. I agree with the dictator's note ,documented as a scribe. Any additional findings or plans will be noted.
[2022-12-17] MEDS: METOPROLOL TARTRATE 50 MG TAB PO SCH ×2 (09:49→20:02)
[2022-12-17] MEDS: EZETIMIBE 10 MG TAB PO SCH (09:49)
[2022-12-17] MEDS: ASPIRIN 81 MG PO SCH (09:49)
[2022-12-17] MEDS: DAPAGLIFLOZIN PROPANEDIOL 5 MG TABLET PO SCH (09:49)
[2022-12-17] MEDS: LINAGLIPTIN 5 MG TABLET PO SCH (09:49)
[2022-12-17] MEDS: Icosapent Ethyl [Icosapent Ethyl] 1 GM Capsule PO SCH ×2 (09:49→20:02)
[2022-12-17] MEDS: SPIRONOLACTONE 25 MG TAB PO SCH (09:50)
[2022-12-17] MEDS: TICAGRELOR 90 MG TAB PO SCH ×2 (09:50→20:02)
[2022-12-17] MEDS: SODIUM CHLORIDE 0.9% 1,000 ML IV SCH ×3 (10:25→20:10)
[2022-12-17] MEDS: HEPARIN SODIUM,PORCINE/PF 5,000 UNIT/0.5 ML SYRINGE SQ SCH ×2 (10:25→20:07)
--- NOTE | 2022-12-17 11:39 | P.PN ---
Subjective Progress Note Date: 12/17/22 The patient is seen at bedside and is accompanied by his daughter. He was significant weakness of the left side. Objective - Vital Signs Vital signs: Vital Signs Temp 98.1 F 12/16/22 20:30 Pulse 91 12/17/22 04:00 Resp 18 12/17/22 04:00 BP 148/70 12/17/22 04:00 Pulse Ox 95 12/17/22 09:20 FiO2 Intake & Output 12/16/22 12/17/22 12/17/22 18:59 06:59 18:59 Intake Total 0 Balance 0 Weight 75.296 kg Intake: Oral 0 Other: Voiding Method Urinal # Voids 3 - Exam GENERAL: The patient is lying in bed and is not in acute distress. NEUROLOGICAL: Higher mental function: The patient is awake, alert, oriented to self, place and time. Patient is following simple commands. No aphasia and no neglect. Cranial nerves: The pupils are round, equal and reactive to light. Visual bishop full to confrontation. Extraocular movement is intact no nystagmus is noted. The facial strength is mild left lower facial weakness. Has severe dysarthria is noted. Shoulder shrug is normal bilaterally. Motor: The strength is left upper extremity proximally is 1 and distally is 3 with weak gand clinical writer of 2. Left lower is 3. Otherwise 5 over 5 throughout right. Decrease tone predominately left side. Otherwise normal tone and bulk. Cerebellum: Had to assess finger to nose on left because of weakness but normal on the right. Sensation: Sensation is decreased on the left. Reflexes (right/left): 2+ throughout. Plantars is mute bilaterally. Some other workup during this hospital visit consisted of: Hemoglobin A1c is 10.0 Lipid panel is TG 376, cholesterol 190, LDL 77 and HDL is 37. CT of the head is reported as no acute finding in the head/brain. Personally reviewed the CT of the head and there is no acute or subacute ischemia. Carotid duplex was reported as less than 50% stenosis on the right carotid bifurcation. 50-60% stenosis on the left carotid bifurcation. - Labs CBC & Chem 7: 12/16/22 01:45 12/16/22 01:45 Labs: Abnormal Lab Results - Last 24 Hours (Table) 12/16/22 12/16/22 12/16/22 Range/Units 01:45 17:03 21:06 POC Glucose (mg/dL) 163 H 143 H (70-110) mg/dL Hemoglobin A1c 10.0 H (0.0-6.0) % 12/17/22 Range/Units 06:17 POC Glucose (mg/dL) 180 H (70-110) mg/dL Hemoglobin A1c (0.0-6.0) % Assessment and Plan Assessment: This is a 67-year-old gentleman who presented that because of left-sided weakness and numbness with dysarthria. Patient stated that his symptoms began on 12/15/2022 in the afternoon for the ED was accompanied with his daughter and is seems his symptoms has been progressive for the last 48 hours prior to prese nting to the hospital. Acute ischemic stroke and etiology likely due to his symptomatic Right ICA s tenosis Recent stroke in the second week of October 2022 in which she had the right occipital and was also felt likely due to symptomatic right ICA stenosis. At that time also patient had the left-sided weakness with facial droop and slurred speech and his symptoms resolved. Patient also had the MRI which also reported acute to subacute left hernandez radiata but was felt likely T2 shine through and not acute or subacute stroke. Vascular team ask for him to follow-u as outpatient. Significant bilateral carotid stenosis. Right ICA is 80-85% while left is 85% per CTA while the duplex is 50-69% on the right while left is less than 50% Dyslipidemia Diabetes mellitus Hypertension Hard of hearing History of coronary artery disease status post stent as well as CABG Tobacco use Plan: I stop Plavix since the patient failed the medication. I started the patient on Brilinta 90mg bid I decreased ASA from 325mg to 81mg daily. Continue Lipitor 80 mg daily at bedtime for secondary stroke prophylaxis. Vascular surgery team consulted for his symptomatic right ICA stenosis and recommend to be addressed during this admission. He had similar presentation just a bit more than a month ago and was told to have carotid addressed as outpatient. Pending MRI of the brain. Recommend permissive hypertension for the next 24 hours for now. Treat if SBP >220 or DBP >110. Neurochecks Cardiac monitoring PT, OT and HOOK AND EYE SEWING MACHINE OPERATOR are consulted We'll defer the rest of the medical management to the primary team For DVT prophylaxis IOn subcu heparin 5000 units every 12 hours The plan was discussed with the patient, his daughter who is at bedside and vascular surgery N.P. Time with Patient: Less than 30
[2022-12-17 11:42] LABS: Glucose,Whole Blood 139 mg/dL (70-110)
--- NOTE | 2022-12-17 12:23 | P.CRDCN ---
History of Present Illness Consult date: 12/17/22 Reason for Consult (text): Surgical clearance for carotid endarterectomy History of present illness: History of present illness: This is a 67-year-old male of Dr. Mckeon with past medical history of diabetes mellitus type 2, hypertension, hyperlipidemia, history of MD in 2011 status post stent of the circumflex, known to have triple-vessel coronary artery disease with totally occluded collateralized right coronary artery, status post coronary artery bypass grafting using the left internal mammary artery to the left anterior descending artery, left radial artery from the aorta to the obtuse marginal artery, reverse saphenous vein graft from the aorta to the posterior descending artery, overall preserved left ventricular function, mild aortic stenosis, mild COPD with preoperative FEV1 63% of predicted, obesity, umbilical and epigastric hernia. Patient recently hospitalized for CVA was in a sinus mechanism. Echocardiogram revealed EF of 55-60%, mild LVH, moderate mitral annular calcification, trace mitral regurgitation, moderate aortic stenosis, mild tricuspid regurgitation. Patient underwent MARISELA with Dr. Mckeon which r evealed no cardiac source for CVA. Mild mitral and tricuspid regurgitation. Moderate aortic stenosis with mean gradient of 23 mmHg. patient was evaluated by vascular surgery, Dr. Acosta, for bilateral carotid stenosis. Patient was to have follow-up in the office and plan for endarterectomy. Patient had near complete resolution of his symptoms and was doing well at home until family noticed that he was having a couple of days' worth of balance issues. He was complaining of headache and pressure behind his eye and not feeling well in general. He also developed incontinence and did not realize he was incontinence and then significant weakness of his left side and slurred speech and difficulty swallowing. And consulted for surgical clearance for carotid endarterectomy most likely scheduled for Tuesday EKG sinus rhythm with no acute ST changes Chest x-ray: CAT scan of the brain revealed no acute findings WBC 11.6, hemoglobin 16.4, platelet count 218. Electrolytes are normal, creati nine 0.68. Blood sugar 192. Troponin negative. Home cardiac medications: Aspirin 325 mg daily, atorvastatin 80 mg daily, Plavix 75 mg daily, Farxiga 5 mg daily, Zetia 10 mg daily, Lopid 600 mg twice daily, Lopressor 100 mg twice daily, spironolactone 25 mg daily Review Of Systems: At the time of my evaluation: Constitutional: No fever, no chills. EENT: No headache. No dizziness. Lungs: No shortness of breath, cough, no sputum production. No wheezing. Cardiovascular: No chest pain, no lower extremity edema. No palpitations. No paroxysmal nocturnal dyspnea. No orthopnea. No lightheadedness or dizziness. No syncopal episodes. Abdominal: No abdominal pain. No nausea, vomiting. No diarrhea. Musculoskeletal: No myalgias. noted muscle weakness, no frequent falls. Neurologic: noted aphasia. noted facial droop. Lexiscan stress test 10/2022 revealed EF 73%, lateral and inferior basal ischemia Physical examination: Gen: This is a a 67-year-old male. He is resting in bed and appears to be comfortable.VS: reviewed HEENT: Head is atraumatic, normocephalic. Pupils equal, round. Sclerae is anicteric. NECK: Supple. No JVD. LUNGS: Clear to auscultation. No wheezes or rhonchi. No intercostal retractions. HEART: Regular rate and rhythm. 2/6 systolic ejection murmur at the base ABDOMEN: Soft No tenderness. EXTREMITIES: No pedal edema. No calf tenderness. NEUROLOGICAL: Noted to have facial droop, aphasia . Assessment: Acute CVA Recent CVA Carotid stenosis Coronary artery disease with previous stenting and status post CABG Hypertension Hyperlipidemia Diabetes mellitus type 2 Moderate aortic stenosis Plan: Patient is cleared for carotid endarterectomy knowing that patient has an intermediate perioperative risk for complications. Avoid aggressive blood pressure control. Continue dual antiplatelet therapy. Continue patient's home cardiac medications Further recommendations to follow based upon clinical course Thank you kindly for this consultation. Nurse practitioner note has been reviewed, I agree with documented findings and plan of care. Patient was seen and examined. Past Medical History Past Medical History: Diabetes Mellitus, Hyperlipidemia, Hypertension, Myocardial Infarction (MD) Additional Past Medical History / Comment(s): current umbilical hernia Last Myocardial Infarction Date:: 2010 History of Any Multi-Drug Resistant Organisms: None Reported Past Surgical History: Coronary Bypass/CABG, Heart Catheterization With Stent Additional Past Surgical History / Comment(s): recent cardiac cath, valve replacement Past Anesthesia/Blood Transfusion Reactions: No Reported Reaction Additional Past Anesthesia/Blood Transfusion Reaction / Comment(s): no surgical hx Date of Last Stent Placement:: 2010 Past Psychological History: No Psychological Hx Reported Smoking Status: Never smoker Past Alcohol Use History: None Reported Additional Past Alcohol Use History / Comment(s): The patient smokes cigars off and on since age 17. No alcohol or illicit drug use. Past Drug Use History: None Reported - Past Family History Mother Family Medical History: No Reported History Additional Family Medical History / Comment(s): Mother at age 72 from diabetes complications. No history of coronary artery disease. Father Family Medical History: Coronary Artery Disease (CAD), Myocardial Infarction (MD) Additional Family Medical History / Comment(s): father at age 62 from myocardial infarction with history of coronary artery disease. Brother(s) Family Medical History: Coronary Artery Disease (CAD) Additional Family Medical History / Comment(s): Patient has 2 brothers one from myocardial infarction. One brother had myocardial infarction status post 3 vessel CABG. Sister(s) Additional Family Medical History / Comment(s): Patient has 2 sisters and one has diabetes. Patient has 3 daughters and 2 sons with no major medical prob lems. Medications and Allergies Home Medications Medication Instructions Recorded Confirmed Type Insulin Aspart [Insulin Aspart 7 unit SQ AC-TID 11/04/22 12/16/22 History Flexpen] Dapagliflozin Propanediol [Farxiga] 5 mg PO DAILY 11/05/22 12/16/22 History Ezetimibe [Zetia] 10 mg PO DAILY 11/05/22 12/16/22 History Spironolactone 25 mg PO DAILY 11/05/22 12/16/22 History gemfibroziL [Lopid] 600 mg PO AC-BID 11/05/22 12/16/22 History icosapent ethyL [Icosapent Ethyl] 1 gm PO BID 11/05/22 12/16/22 History metFORMIN HCL 500 mg PO BID 11/05/22 12/16/22 History sitaGLIPtin [Januvia] 100 mg PO DAILY 11/05/22 12/16/22 History Aspirin 325 mg PO DAILY tab 11/08/22 12/16/22 Rx Atorvastatin [Lipitor] 80 mg PO HS #30 tab 11/08/22 12/16/22 Rx Clopidogrel [Plavix] 75 mg PO DAILY #30 tab 11/08/22 12/16/22 Rx Insulin Detemir [Levemir Flexpen] 15 units SQ DAILY #5 pen 11/08/22 12/16/22 Rx Metoprolol Tartrate [Lopressor] 100 mg PO BID #60 tab 11/08/22 12/16/22 Rx Allergies Allergy/AdvReac Type Severity Reaction Status Date / Time Penicillins Allergy Rash/Hives Verified 12/16/22 10:36 Physical Exam Vitals: Vital Signs Temp Pulse Pulse Resp BP BP Pulse Ox 12/17/22 04:00 91 18 148/70 98 12/17/22 00:00 85 18 145/73 98 12/16/22 20:30 98.1 F 78 18 150/85 97 12/16/22 12:00 65 16 127/64 96 12/16/22 07:11 57 L 18 122/74 96 Intake and Output 12/16/22 12/17/22 12/17/22 22:59 06:59 14:59 Intake Total 0 0 Balance 0 0 Intake: Oral 0 0 Other: Voiding Method Urinal Urinal # Voids 1 3 Weight 75.296 kg Results 12/16/22 01:45 12/16/22 01:45 Lipids 12/16/22 Range/Units 01:45 Triglycerides 376.00 H (0.00-149.00) mg/dL Cholesterol 190.00 (0.00-200.00) mg/dL HDL Cholesterol 37.30 L (40.00-60.00) mg/dL Cholesterol/HDL Ratio 5.09 Ratio Current Medications Generic Name Dose Route Start Last Admin Trade Name Freq PRN Reason Stop Dose Admin Acetaminophen 650 mg 12/16/22 03:55 Acetaminophen Tab 325 Mg Tab PO Q6HR PRN Mild Pain or Fever > 100.5 Aspirin 81 mg 12/17/22 09:00 Aspirin 81 Mg PO DAILY [facility] Atorvastatin Calcium 80 mg 12/16/22 21:00 12/16/22 20:59 Atorvastatin 80 Mg Tab PO Not Given HS CORINA Dapagliflozin 5 mg 12/16/22 13:45 12/16/22 14:13 Dapagliflozin Propanediol 5 Mg Tablet PO 5 mg DAILY [facility] Administration Dextrose/Water 25 ml 12/16/22 13:46 Dextrose 50% Syringe 50 Ml IVP PER PROTOCOL PRN Hypoglycemia Protocol Dextrose/Water 50 ml 12/16/22 13:46 Dextrose 50% Syringe 50 Ml IVP PER PROTOCOL PRN Hypoglycemia Protocol Ezetimibe 10 mg 12/17/22 09:00 Ezetimibe 10 Mg Tab PO DAILY [facility] Heparin Sodium (Porcine) 5,000 unit 12/16/22 21:00 12/16/22 21:11 Heparin Sodium,Porcine/Pf 5,000 Unit/0.5 Ml Syringe SQ 5,000 unit Q12HR [facility] Administration Sodium Chloride 1,000 mls @ 130 mls/hr 12/16/22 04:00 12/16/22 23:30 Saline 0.9% IV 130 mls/hr .[id number] [facility] Administration Insulin Aspart 0 unit 12/16/22 17:30 12/17/22 06:32 Insulin Aspart (Novolog) 100 Unit/Ml Vial SQ Not Given ACHS [facility] Protocol Insulin Detemir 15 unit 12/16/22 14:00 12/17/22 06:32 Insulin Detemir (Levemir) 100 Unit/Ml Syr SQ Not Given DAILY@0700 [facility] Linagliptin 5 mg 12/17/22 09:00 Linagliptin 5 Mg Tablet PO DAILY [facility] Metoprolol Tartrate 100 mg 12/16/22 21:00 12/16/22 20:59 Metoprolol Tartrate 50 Mg Tab PO Not Given BID [facility] Naloxone HCl 0.2 mg 12/16/22 03:55 Naloxone 0.4 Mg/Ml 1 Ml Vial IV Q2M PRN Opioid Reversal Icosapent Ethyl [ 1 gm 12/16/22 13:45 12/16/22 20:59 Icosapent Ethyl] 1 PO Not Given Gm Capsule BID [facility] Spironolactone 25 mg 12/17/22 09:00 Spironolactone 25 Mg Tab PO DAILY [facility] Ticagrelor 90 mg 12/16/22 21:00 12/16/22 20:59 Ticagrelor 90 Mg Tab PO Not Given BID [facility] Intake and Output 12/16/22 12/17/22 12/17/22 22:59 06:59 14:59 Intake Total 0 0 Balance 0 0 Intake: Oral 0 0 Other: Voiding Method Urinal Urinal # Voids 1 3 Weight 75.296 kg 12/16/22 01:45 12/16/22 01:45
--- NOTE | 2022-12-17 12:51 | P.HPIM ---
History of Present Illness H&P Date: 12/16/22 HISTORY OF PRESENT ILLNESS This is a 67-year-old male with past medical history of diabetes mellitus type 2, hypertension, hyperlipidemia, history of AL in 2010 status post stent of the circumflex, known to have triple-vessel coronary artery disease with totally occluded collateralized right coronary artery, status post coronary artery bypass grafting using the left internal mammary artery to the left anterior descending artery, left radial artery from the aorta to the obtuse marginal artery, reverse saphenous vein graft from the aorta to the posterior descending artery, overall preserved left ventricular function, mild aortic stenosis, mild COPD with preoperative FEV1 63% of predicted, obesity, umbilical and epigastric hernia. Patient presented to the hospital due to increasing weakness and slurred speech with history of a stroke a month ago that affected his speech and the left side of his body and was discharged on 11/08. During the hospitalization, Echocardiogram revealed EF of 55-60%, mild LVH, moderate mitral annular calcification, trace mitral regurgitation, moderate aortic stenosis, mild tricuspid regurgitation. Patient underwent MARISELA with Dr. Mckeon which revealed no cardiac source for CVA. Mild mitral and tricuspid regurgitation. Moderate aortic stenosis with mean gradient of 23 mmHg. Patient was evaluated by therapies with recommendations for home. Cardiology planned for outpatient stress testing with Dr. Mckeon and patient was to follow-up with vascular surge ry regarding bilateral carotid stenosis. Patient really has had completely cover of his left-sided weakness and slurred speech. Family noticed that patient was having some difficulty with balance and walking and he started complaining of a headache and pressure behind his eye and not feeling well in general. He also was noted have incontinence and did not realize he was incontinent. Then he developed significant weakness on the left side and slurred speech and difficulty swallowing and presented to [facility] for further evaluation. Patient presents to the hospital with increased weakness and slurred speech that had progressed over the last 48 hours along with difficulty ambulating. Initial blood pressure was 109/89. WBC 11.6, hemoglobin 16.4, platelet count 218. Electrolytes are normal, creatinine 0.68. Blood sugar 192. Troponin negative. EKG sinus rhythm with no acute ST changes. CAT scan of the brain revealed no acute findings. Consult in place with vascular surgery with plans for carotid endarterectomy during this hospitalization, consult with cardiology for surgical clearance. REVIEW OF SYSTEMS Constitutional: No fever, no chills, no night sweats. No weight change. Reports left weakness. No daytime sleepiness. EENT: Reports headache. No blurred vision or double vision, no loss of vision. No loss of Hearing, no ringing in the ears, no dizziness. No nasal drainage or congestion. No epistaxis. No sore throat. Lungs: No shortness of breath, cough, no sputum production. No wheezing. Cardiovascular: No chest pain, no lower extremity edema. No palpitations. No paroxysmal nocturnal dyspnea. No orthopnea. No lightheadedness or dizziness. No syncopal episodes. Abdominal: No abdominal pain. No nausea, vomiting. No diarrhea. No cons tipation. No bloody or tarry stools. No loss of appetite. Genitourinary: No dysuria, increased frequency, urgency. No urinary retention. Musculoskeletal: No myalgias. Noted muscle weakness left side, noted gait dysfunction, no frequent falls. Chronic back pain. Integumentary: No wounds, no lesions. No rash or pruritus. No unusual bruising. No change in hair or nails. Neurologic: Reports slurred speech and weakness. Noted facial droop. No change in mentation. No head injury. Psychiatric: No depression. No anxiety. No mood swings. Endocrine: No abnormal blood sugars. No weight change. No excessive sweating or thirst. No cold intolerance. MEDICAL HISTORY Diabetes mellitus type 2 Hypertension Hyperlipidemia History of AL in 2010 status post stent of circumflex Triple-vessel coronary artery disease status post CABG Mild aortic stenosis Mild COPD Acute ischemic stroke with left hemiparesis Bilateral internal carotid artery stenosis Tobacco use and dependence SURGICAL HISTORY 3 vessel CABG in 2019 Coronary stent SOCIAL HISTORY Patient smokes cigars off and on since age 17. No alcohol illicit drug use. FAMILY HISTORY Father at age 62 from myocardial infarction with history of coronary artery disease. Mother at age 72 from diabetes complications. No history of coronary artery disease. Patient has 2 brothers and one from myocardial infarction status post 3 vessel CABG. Patient has 2 sisters and one has diabetes. He has 3 daughters and 2 sons with no major medical problems.. PHYSICAL EXAMINATION Gen: This is a 63-year-old male. He is sitting up in bed and appears to be comfortable and in no acute distress. Family members at bedside. HEENT: Head is atraumatic, normocephalic. Pupils equal, round. Sclerae is anicteric. Cortisone place to the right internal jugular. NECK: Supple. No JVD. No lymphadenopathy. No thyromegaly. LUNGS: Diminished bilaterally but otherwise clear to auscultation. No wheezes or rhonchi. No intercostal retractions. HEART: Regular rate and rhythm. 2/6 systolic ejection murmur. ABDOMEN: Soft. Bowel sounds are present. No masses. No tenderness. Acosta catheter draining clear lois urine. EXTREMITIES: No pedal edema. No calf tenderness. NEUROLOGICAL: Patient is awake, alert, mild weakness on the left upper extremity, aphasia. ASSESSMENT AND PLAN 1. Acute CVA. Consult with neurology, vascular surgery and cardiology. Continue patient on aspirin, statin and Plavix. Consult with PT, OT, ST. 2. Acute ischemic stroke with left hemiparesis diagnosed on 11/05/2022. 3. Bilateral internal carotid artery stenosis. Consult appreciated with vascular surgery with plan for carotid endarterectomy during this hospitalization 4. Coronary artery disease status post 3 vessel CABG details above as well as previous stenting of circumflex. Continue patient on aspirin, Lipitor. 5. Hypertension. Continue patient on Aldactone 25 mg daily, Lopressor 100 mg twice daily. 6. Hyperlipidemia. Continue Lipitor 80 mg daily 7. Mild COPD, stable without exacerbation 8. Diabetes mellitus type 2. Continue patient on Levemir 15 units daily, Farxiga 5 mg daily, Tradjenta 5 mg daily, NovoLog insulin scale before meals and at bedtime, hold metformin. 9. GI prophylaxis. Protonix. 10. DVT prophylaxis. Patient will be admitted to the hospital for a minimum of 2 night stay. Impression and plan of care have been directed as dictated by the signing physician. Rosalia Burns nurse practitioner acting as scribe for signing physician. Past Medical History Past Medical History: Diabetes Mellitus, Hyperlipidemia, Hypertension, Myocardial Infarction (AL) Additional Past Medical History / Comment(s): current umbilical hernia Last Myocardial Infarction Date:: 2010 History of Any Multi-Drug Resistant Organisms: None Reported Past Surgical History: Coronary Bypass/CABG, Heart Catheterization With Stent Additional Past Surgical History / Comment(s): recent cardiac cath, valve replacement Past Anesthesia/Blood Transfusion Reactions: No Reported Reaction Additional Past Anesthesia/Blood Transfusion Reaction / Comment(s): no surgical hx Date of Last Stent Placement:: 2010 Past Psychological History: No Psychological Hx Reported Smoking Status: Never smoker Past Alcohol Use History: None Reported Past Drug Use History: None Reported - Past Family History Mother Family Medical History: No Reported History Additional Family Medical History / Comment(s): Mother at age 72 from diabetes complications. No history of coronary artery disease. Father Family Medical History: Coronary Artery Disease (CAD), Myocardial Infarction (AL) Additional Family Medical History / Comment(s): father at age 62 from myocardial infarction with history of coronary artery disease. Brother(s) Family Medical History: Coronary Artery Disease (CAD) Additional Family Medical History / Comment(s): Patient has 2 brothers one from myocardial infarction. One brother had myocardial infarction status post 3 vessel CABG. Sister(s) Additional Family Medical History / Comment(s): Patient has 2 sisters and one has diabetes. Patient has 3 daughters and 2 sons with no major medical problems. Medications and Allergies Home Medications Medication Instructions Recorded Confirmed Type Insulin Aspart [Insulin Aspart 7 unit SQ AC-TID 11/04/22 12/16/22 History Flexpen] Dapagliflozin Propanediol [Farxiga] 5 mg PO DAILY 11/05/22 12/16/22 History Ezetimibe [Zetia] 10 mg PO DAILY 11/05/22 12/16/22 History Spironolactone 25 mg PO DAILY 11/05/22 12/16/22 History gemfibroziL [Lopid] 600 mg PO AC-BID 11/05/22 12/16/22 History icosapent ethyL [Icosapent Ethyl] 1 gm PO BID 11/05/22 12/16/22 History metFORMIN HCL 500 mg PO BID 11/05/22 12/16/22 History sitaGLIPtin [Januvia] 100 mg PO DAILY 11/05/22 12/16/22 History Aspirin 325 mg PO DAILY tab 11/08/22 12/16/22 Rx Atorvastatin [Lipitor] 80 mg PO HS #30 tab 11/08/22 12/16/22 Rx Clopidogrel [Plavix] 75 mg PO DAILY #30 tab 11/08/22 12/16/22 Rx Insulin Detemir [Levemir Flexpen] 15 units SQ DAILY #5 pen 11/08/22 12/16/22 Rx Metoprolol Tartrate [Lopressor] 100 mg PO BID #60 tab 11/08/22 12/16/22 Rx Allergies Allergy/AdvReac Type Severity Reaction Status Date / Time Penicillins Allergy Rash/Hives Verified 12/16/22 10:36 Physical Exam Vitals: Vital Signs Temp Pulse Resp BP Pulse Ox 12/16/22 12:00 65 16 127/64 96 12/16/22 07:11 57 L 18 122/74 96 12/16/22 06:23 80 16 149/86 100 12/16/22 04:23 72 18 158/54 98 12/16/22 02:40 58 L 18 106/51 97 12/16/22 01:24 97.5 F L 61 20 109/89 98 Intake and Output 12/15/22 12/16/22 12/16/22 22:59 06:59 14:59 Other: Weight 75.296 kg Results CBC & Chem 7: 12/16/22 01:45 12/16/22 01:45 Labs: Abnormal Lab Results - Last 24 Hours (Table) 12/16/22 12/16/22 12/16/22 Range/Units 01:45 01:45 01:45 WBC 11.6 H (3.8-10.6) k/uL Glucose 192 H (74-99) mg/dL Total Protein 6.2 L (6.3-8.2) g/dL Albumin 3.3 L (3.5-5.0) g/dL Triglycerides 376.00 H (0.00-149.00) mg/dL VLDL Cholesterol, Calc 75.20 H (5.00-40.00) mg/dL HDL Cholesterol 37.30 L (40.00-60.00) mg/dL
--- NOTE | 2022-12-17 15:25 | P.PN ---
Subjective Progress Note Date: 12/17/22 HISTORY OF PRESENT ILLNESS This is a 67-year-old male with past medical history of diabetes mellitus type 2, hypertension, hyperlipidemia, history of MD in 2010 status post stent of the circumflex, known to have triple-vessel coronary artery disease with totally occluded collateralized right coronary artery, status post coronary artery bypass grafting using the left internal mammary artery to the left anterior descending artery, left radial artery from the aorta to the obtuse marginal artery, reverse saphenous vein graft from the aorta to the posterior descending artery, overall preserved left ventricular function, mild aortic stenosis, mild COPD with preoperative FEV1 63% of predicted, obesity, umbilical and epigastric hernia. Patient presented to the hospital due to increasing weakness and sl urred speech with history of a stroke a month ago that affected his speech and the left side of his body and was discharged on 11/08. During the hospitalization, Echocardiogram revealed EF of 55-60%, mild LVH, moderate mitral annular calcification, trace mitral regurgitation, moderate aortic stenosis, mild tricuspid regurgitation. Patient underwent MARISELA with Dr. Mckeon which revealed no cardiac source for CVA. Mild mitral and tricuspid regurgitation. Moderate aortic stenosis with mean gradient of 23 mmHg. Patient was evaluated by therapies with recommendations for home. Cardiology planned for outpatient stress testing with Dr. Mckeon and patient was to follow-up with vascular surgery regarding bilateral carotid stenosis. Patient really has had completely cover of his left-sided weakness and slurred speech. Family noticed that patient was having some difficulty with balance and walking and he started complaining of a headache and pressure behind his eye and not feeling well in general. He also was noted have incontinence and did not realize he was incontinent. Then he developed significant weakness on the left side and slurred speech and difficulty swallowing and presented to [facility] for further evaluation. Patient presents to the hospital with increased weakness and slurred speech that had progressed over the last 48 hours along with difficulty ambulating. Initial blood pressure was 109/89. WBC 11.6, hemoglobin 16.4, platelet count 218. Electrolytes are normal, creatinine 0.68. Blood sugar 192. Troponin negative. EKG sinus rhythm with no acute ST changes. CAT scan of the brain revealed no acute findings. Consult in place with vascular surgery with plans for carotid endarterectomy during this hospitalization, consult with cardiology for surgical clearance. 12/17: Patient is seen today on the cardiac stepdown unit. Patient has been seen by cardiology and cleared for carotid endarterectomy knowing that he is at intermediate risk for perioperative complications. Patient was seen by speech therapy and recommended nothing by mouth patient unable to pass a bedside swallow evaluation by speech. Patient is not safe to undergo modified barium swallow at this time. We will plan to place NG tube for patient to get his medications. Patient is also been seen by PT OT. He continues to have difficulty weakness on the left side along with expressive aphasia. Patient has been afebrile, heart rate 91, blood pressure 148/70, pulse ox 90% on room air. Blood sugars are running between 139-180. Neurology has discontinued Plavix is thought to have failed treatment and started Brilinta along with aspirin 81 mg daily, Lipitor 81 mg daily plan for permissive hypertension for the next 24 hours. Carotid ultrasound revealed less than 50% stenosis of the right carotid bifurcation, 50-69% stenosis on the left. REVIEW OF SYSTEMS Constitutional: No fever, no chills, no night sweats. No weight change. Reports left weakness. No daytime sleepiness. EENT: Reports headache. No blurred vision or double vision, no loss of vision. No loss of Hearing, no ringing in the ears, no dizziness. No nasal drainage or congestion. No epistaxis. No sore throat. Lungs: No shortness of breath, cough, no sputum production. No wheezing. Cardiovascular: No chest pain, no lower extremity edema. No palpitations. No paroxysmal nocturnal dyspnea. No orthopnea. No lightheadedness or dizziness. No syncopal episodes. Abdominal: No abdominal pain. No nausea, vomiting. No diarrhea. No constipation. No bloody or tarry stools. No loss of appetite. Genitourinary: No dysuria, increased frequency, urgency. No urinary retention. Musculoskeletal: No myalgias. Noted muscle weakness left side, noted gait dysfunction, no frequent falls. Chronic back pain. Integumentary: No wounds, no lesions. No rash or pruritus. No unusual bruising. No change in hair or nails. Neurologic: Reports slurred speech and weakness. Noted facial droop. Noted change in mentation. No head injury. Psychiatric: No depression. No anxiety. No mood swings. Endocrine: No abnormal blood sugars. No weight change. No excessive sweating or thirst. No cold intolerance. PHYSICAL EXAMINATION Gen: This is a 63-year-old male. He is sitting up in bed and appears to be comfortable and in no acute distress. Family members at bedside. HEENT: Head is atraumatic, normocephalic. Pupils equal, round. Sclerae is anicteric. Cortisone place to the right internal jugular. NECK: Supple. No JVD. No lymphadenopathy. No thyromegaly. LUNGS: Diminished bilaterally but otherwise clear to auscultation. No wheezes or rhonchi. No intercostal retractions. HEART: Regular rate and rhythm. 2/6 systolic ejection murmur. ABDOMEN: Soft. Bowel sounds are present. No masses. No tenderness. Acosta catheter draining clear lois urine. EXTREMITIES: No pedal edema. No calf tenderness. NEUROLOGICAL: Patient is awake, alert, weakness on the left, aphasia. ASSESSMENT AND PLAN 1. Acute CVA. Consult with neurology, vascular surgery and cardiology. Cont inue patient on aspirin, statin and Plavix. Consult with PT, OT, ST. 2. Acute ischemic stroke with left hemiparesis diagnosed on 11/05/2022. 3. Bilateral internal carotid artery stenosis. Consult appreciated with vascular surgery with plan for carotid endarterectomy during this hospitalization 4. Dysphagia. NG tube placed for patient to receive medications and also nutrition until modified barium swallow can be done most likely next week. 5. Coronary artery disease status post 3 vessel CABG details above as well as previous stenting of circumflex. Continue patient on aspirin, Lipitor. 6. Hypertension. Continue patient on Aldactone 25 mg daily, Lopressor 100 mg twice daily. 7. Hyperlipidemia. Continue Lipitor 80 mg daily 8. Mild COPD, stable without exacerbation 9. Diabetes mellitus type 2. Continue patient on Levemir 15 units daily, Farxiga 5 mg daily, Tradjenta 5 mg daily, NovoLog insulin scale before meals and at bedtime, hold metformin. 10. Moderate aortic stenosis. 11. GI prophylaxis. Protonix. 12. DVT prophylaxis. Heparin subcu Impression and plan of care have been directed as dictated by the signing physician. Rosalia Burns nurse practitioner acting as scribe for signing physician. Objective - Vital Signs Vital signs: Vital Signs Temp 98.1 F 12/16/22 20:30 Pulse 91 12/17/22 04:00 Resp 18 12/17/22 04:00 BP 148/70 12/17/22 04:00 Pulse Ox 95 12/17/22 09:20 FiO2 Intake & Output 12/16/22 12/17/22 12/17/22 18:59 06:59 18:59 Intake Total 0 Balance 0 Weight 75.296 kg 75.296 kg Intake: Oral 0 Other: Voiding Method Urinal # Voids 3 - Labs CBC & Chem 7: 12/16/22 01:45 12/16/22 01:45 Labs: Abnormal Lab Results - Last 24 Hours (Table) 12/16/22 12/16/22 12/16/22 Range/Units 01:45 17:03 21:06 POC Glucose (mg/dL) 163 H 143 H (70-110) mg/dL Hemoglobin A1c 10.0 H (0.0-6.0) % 12/17/22 12/17/22 Range/Units 06:17 11:40 POC Glucose (mg/dL) 180 H 139 H (70-110) mg/dL Hemoglobin A1c (0.0-6.0) %
[2022-12-17 16:40] LABS: Glucose,Whole Blood 112 mg/dL (70-110)
--- NOTE | 2022-12-17 19:14 | MR ---
EXAMINATION TYPE: MR brain wo con DATE OF EXAM: 12/17/2022 COMPARISON: MRI brain 11/05/2022 HISTORY: Stroke. Left sided weakness CONTRAST: Performed utilizing 0 mL intravenous Gadavist gadolinium contrast. TECHNIQUE: Multiplanar, multiecho imaging on a 3.0 Huma magnet is performed through the brain. Stud y is performed within 24 hours of arrival to the hospital. There is some coughing and motion present, fast scan imaging was performed during a portion of the exam trying to compensate. The craniovertebral junction is normal. The pituitary is normal. Diffusion-weighted imaging is performed. Hyperintensities within the right aspect of the brainstem. Some small peripheral left brain stem uptake is present. Findings are suspicious for acute ischemic c hanges. Example image series 303 image 88. Some subtle uptake may be within the posterior right occipital gyrus. Example image series 303 image 120. This is less intense than the comparison study can be compatible with subacute to older ischemia . There may be a punctate hyperintensity within the left hernandez radiata. Series 303 image 152. This was present previously. On inversion recovery sequences additional deep white matter hyperintensities are present. This is no nspecific but can be compatible with microvascular ischemic changes. Ventricles and sulci are prominent for the patient age. IMPRESSIONS: 1. Acute ischemic changes, an interval finding, within the right brain stem and to lesser degree left brain stem. 2. Residual signal abnormality within the right occipital lobe can be related to the old ischemic gael nge. 3. Chronic appearing deep white matter changes.
--- NOTE | 2022-12-17 19:38 | P.CONS ---
History of Present Illness - Reason for Consult Consult date: 12/17/22 rehab recommendations - History of Present Illness Mr Pb Lozada is a 67 y/o male who was independent with basic and advanced ADLs prior to admission. The few days prior to admission he was living with one of his daughters with 0 QUAN and 1 SH. He used no assisted devices and drove. He was living with his prior to moving in with his daughter but per daughter at bedside today they had some disagreements. He recently retired from a [employer]. Mr Lozada presented to [facility] on December 16, 2022 with complaints of headache, loss of balance. Patient's family noted left sided weakness, slurred speech and difficulty swallowing. Patient had a head CT with no acute processing. Neurology and cardiology consulted. MRI ordered and pending. Patient failed bed side swallow study and is currently NPO. He was admited for acute right sided ischemic CVA with left Hemiparesis. [facility] to have an outpatient endarterectomy for severe bilateral ICA stenosis. Per cardiology notes, procedure likely planned for Tuesday. PM&R consulted for rehab recommendations. Patient is pending therapy evaluations. 12/17/22: He continues to have left sided weakness, expressive aphasia and dysphagia. Review of Systems ROS reviewed, Negative except for what is documented and reviewed in HPI Past Medical History Past Medical History: Diabetes Mellitus, Hyperlipidemia, Hypertension, Myocardial Infarction (MS) Additional Past Medical History / Comment(s): current umbilical hernia Last Myocardial Infarction Date:: 2010 History of Any Multi-Drug Resistant Organisms: None Reported Past Surgical History: Coronary Bypass/CABG, Heart Catheterization With Stent Additional Past Surgical History / Comment(s): recent cardiac cath, valve replacement Past Anesthesia/Blood Transfusion Reactions: No Reported Reaction Additional Past Anesthesia/Blood Transfusion Reaction / Comm: no surgical hx Date of Last Stent Placement:: 2010 Past Psychological History: No Psychological Hx Reported Smoking Status: Never smoker Past Alcohol Use History: None Reported Additional Past Alcohol Use History / Comment(s): The patient smokes cigars off and on since age 17. No alcohol or illicit drug use. Past Drug Use History: None Reported - Past Family History Mother Family Medical History: No Reported History Additional Family Medical History / Comment(s): Mother at age 72 from diabetes complications. No history of coronary artery disease. Father Family Medical History: Coronary Artery Disease (CAD), Myocardial Infarction (MS) Additional Family Medical History / Comment(s): father at age 62 from myocardial infarction with history of coronary artery disease. Brother(s) Family Medical History: Coronary Artery Disease (CAD) Additional Family Medical History / Comment(s): Patient has 2 brothers one from myocardial infarction. One brother had myocardial infarction status post 3 vessel CABG. Sister(s) Additional Family Medical History / Comment(s): Patient has 2 sisters and one has diabetes. Patient has 3 daughters and 2 sons with no major medical problems. Medications and Allergies Home Medications Medication Instructions Recorded Confirmed Type Insulin Aspart [Insulin Aspart 7 unit SQ AC-TID 11/04/22 12/16/22 History Flexpen] Dapagliflozin Propanediol [Farxiga] 5 mg PO DAILY 11/05/22 12/16/22 History Ezetimibe [Zetia] 10 mg PO DAILY 11/05/22 12/16/22 History Spironolactone 25 mg PO DAILY 11/05/22 12/16/22 History gemfibroziL [Lopid] 600 mg PO AC-BID 11/05/22 12/16/22 History icosapent ethyL [Icosapent Ethyl] 1 gm PO BID 11/05/22 12/16/22 History metFORMIN HCL 500 mg PO BID 11/05/22 12/16/22 History sitaGLIPtin [Januvia] 100 mg PO DAILY 11/05/22 12/16/22 History Aspirin 325 mg PO DAILY tab 11/08/22 12/16/22 Rx Atorvastatin [Lipitor] 80 mg PO HS #30 tab 11/08/22 12/16/22 Rx Clopidogrel [Plavix] 75 mg PO DAILY #30 tab 11/08/22 12/16/22 Rx Insulin Detemir [Levemir Flexpen] 15 units SQ DAILY #5 pen 11/08/22 12/16/22 Rx Metoprolol Tartrate [Lopressor] 100 mg PO BID #60 tab 11/08/22 12/16/22 Rx Allergies Allergy/AdvReac Type Severity Reaction Status Date / Time Penicillins Allergy Rash/Hives Verified 12/16/22 10:36 Physical Exam Vitals: Vital Signs Temp Pulse Resp BP Pulse Ox 12/17/22 09:20 95 12/17/22 04:00 91 18 148/70 98 12/17/22 00:00 85 18 145/73 98 12/16/22 20:30 98.1 F 78 18 150/85 97 Intake and Output 12/16/22 12/17/22 12/17/22 22:59 06:59 14:59 Intake Total 0 0 Balance 0 0 Intake: Oral 0 0 Other: Voiding Method Urinal Urinal # Voids 1 3 Weight 75.296 kg 75.296 kg EXAM; General: The patient appears stated age, comfortable, NAD, sitting up in bed, daughter at bedside HEENT: +Left facial droop Neck: Supple. Cardiac: Calves supple, non tender, no edema, no cardiac distress Lungs: Breathing comfortably on RA Abdomen: Soft, nontender, nondistended Neurological: Alert. Follows commands.+Expressive aphasia. Mild left sided negle ct. Cranial nerves: CN II-XII: intact. Sensation: Intact to light touch except decreased in the LUE. Musculoskeletal: ROM WFL in the RUE and RLE MMT UE Sh Abd EE EF FABD WE HG Right 5 5 5 5 5 5 Left 2 2 2 2 2 2 MMT LE HF KE DF EHL Right 5 5 5 5 Left 3 3 3 3 Reflexes Biceps Triceps Brachioradialis Patella Achilles Babinski Hoffmans Right - - Left + - Skin: Skin intact where visible to head, neck, and bilateral upper and lower extremities Psych: Calm, cooperative Results CBC & Chem 7: 12/16/22 01:45 12/16/22 01:45 Labs: Abnormal Lab Results - Last 24 Hours (Table) 12/16/22 12/16/22 12/16/22 Range/Units 01:45 17:03 21:06 POC Glucose (mg/dL) 163 H 143 H (70-110) mg/dL Hemoglobin A1c 10.0 H (0.0-6.0) % 12/17/22 12/17/22 Range/Units 06:17 11:40 POC Glucose (mg/dL) 180 H 139 H (70-110) mg/dL Hemoglobin A1c (0.0-6.0) % Assessment and Plan Assessment: # Acute left hemiparesis, expressive aphasia and dysphagia secondary to suspected acute right sided ischemic CVA # Bilateral carotid stenosis -plan for right CEA next week # Left Hemiparesis # Dysarthria # Dysphagia -currently NPO # Bowel/ Bladder: nursing to monitor # Diet: NPO at this time, [employer] to assess # Skin- per nursing # Pain Management- per MAR # DVT Prophylaxis- per IM # Comorbidities: HTN, HLD, MS, CAD with h/o CABG and stent, DM, h/o right occipital CVA # Your medical dx and management Goals: Modified Independent mobility and ADLS both basic and advanced; increased functional mobility/strength; increased balance, safety, endurance. Improvement in medical issues through your care. Barriers: left hemiparesis, dysphagia, expressive aphasia Discharge recommendation: Likely IPR, need full therapy evaluations. Patient will need medical work up/procedures completed before IPR. Patient seen and examined in coordination with Dr. Anne
[2022-12-17] MEDS: ATORVASTATIN 80 MG TAB PO SCH (20:02)
[2022-12-17 20:15] LABS: Glucose,Whole Blood 120 mg/dL (70-110)
[2022-12-18] MEDS: PANTOPRAZOLE 40 MG TABLET PO SCH (06:07)
[2022-12-18] MEDS: INSULIN DETEMIR (LEVEMIR) 100 UNIT/ML SYR SQ SCH (06:09)
[2022-12-18] MEDS: INSULIN ASPART (NovoLOG) 100 UNIT/ML VIAL SQ SCH ×3 (06:09→17:43)
[2022-12-18 06:10] LABS: Glucose,Whole Blood 128 mg/dL (70-110)
--- NOTE | 2022-12-18 09:02 | P.PN ---
Subjective Progress Note Date: 12/18/22 Patient seen and examined today. Still with left-sided weakness and speech affected. Essentially unchanged from previous. Has NG tube in for tube feeds as he failed his swallow study. Currently on Brilinta. MRI of the brain showed further brainstem deficit. Objective - Vital Signs Vital signs: Vital Signs Temp 97.9 F 12/17/22 20:00 Pulse 91 12/18/22 03:55 Resp 16 12/18/22 03:55 BP 148/75 12/18/22 03:55 Pulse Ox 95 12/18/22 03:55 FiO2 Intake & Output 12/17/22 12/18/22 12/18/22 18:59 06:59 18:59 Output Total 750 Balance -750 Weight 76.5 kg Output: Urine 375 Post Void Residual 375 Other: Voiding Method Urinal External Catheter - Exam General appearance: The patient is alert, oriented, appears in no acute distress. HET: Head is normocephalic and atraumatic. Neck: Supple without lymphadenopathy. Trachea midline. Heart: Regular. Lungs: Equal expansion, normal respiratory effort. Abdomen: Soft, nontender, umbilical hernia, soft, nondistended. Extremities: Normal skin color and turgor. Bilateral palpable radial pulses. Neurological: Patient with slurred speech, left upper and lower extremity weakness. Patient has left facial droop. - Labs CBC & Chem 7: 12/16/22 01:45 12/16/22 01:45 Labs: Abnormal Lab Results - Last 24 Hours (Table) 12/17/22 12/17/22 12/17/22 Range/Units 11:40 16:39 20:14 POC Glucose (mg/dL) 139 H 112 H 120 H (70-110) mg/dL 12/18/22 Range/Units 06:09 POC Glucose (mg/dL) 128 H (70-110) mg/dL Assessment and Plan Plan: 1. Acute ischemic stroke with left-sided weakness and slurred speech 2. Severe bilateral internal carotid artery stenosis, symptomatic on the right. 3. Diabetes mellitus 4. Coronary artery disease status post CABG and stent 5. Hypertension 6. Hyperlipidemia 7. Former smoker. Plan: OR not available Tuesday as hoped, will try for Tue vs . Currently pending OR availability. Discussed with pt and family and understand. 1. Continue workup from neurology 2. Continue dual antiplatelet therapy and statin as recommended by neurology 3. Await further recommendations from neurology on timing of surgical intervention, planning on this admission, discussed with neuro and in agreement 4. Cardiology consulted for cardiac clearance for right carotid artery endarterectomy, appears to be cleared 5. Rest of medical management deferred to primary medical team 6. PT/OT/ST 7. Keep nothing by mouth for now, patient failed swallow study
--- NOTE | 2022-12-18 09:50 | P.GSCN ---
History of Present Illness Consult date: 12/18/22 Reason for Consult: Feeding tube History of present illness: This a 67-year-old male with recent history of left CVA. Patient has failed a swallow study. He currently has a nasogastric tube in place with tube feedings running through. Past Medical History Past Medical History: Diabetes Mellitus, Hyperlipidemia, Hypertension, Myocardial Infarction (NM) Additional Past Medical History / Comment(s): current umbilical hernia Last Myocardial Infarction Date:: 2010 History of Any Multi-Drug Resistant Organisms: None Reported Past Surgical History: Coronary Bypass/CABG, Heart Catheterization With Stent Additional Past Surgical History / Comment(s): recent cardiac cath, valve replacement Past Anesthesia/Blood Transfusion Reactions: No Reported Reaction Additional Past Anesthesia/Blood Transfusion Reaction / Comm: no surgical hx Date of Last Stent Placement:: 2010 Past Psychological History: No Psychological Hx Reported Smoking Status: Never smoker Past Alcohol Use History: None Reported Additional Past Alcohol Use History / Comment(s): The patient smokes cigars off and on since age 17. No alcohol or illicit drug use. Past Drug Use History: None Reported - Past Family History Mother Family Medical History: No Reported History Additional Family Medical History / Comment(s): Mother at age 72 from diabetes complications. No history of coronary artery disease. Father Family Medical History: Coronary Artery Disease (CAD), Myocardial Infarction (NM ) Additional Family Medical History / Comment(s): father at age 62 from myocardial infarction with history of coronary artery disease. Brother(s) Family Medical History: Coronary Artery Disease (CAD) Additional Family Medical History / Comment(s): Patient has 2 brothers one from myocardial infarction. One brother had myocardial infarction status post 3 vessel CABG. Sister(s) Additional Family Medical History / Comment(s): Patient has 2 sisters and one has diabetes. Patient has 3 daughters and 2 sons with no major medical problems. Medications and Allergies Home Medications Medication Instructions Recorded Confirmed Type Insulin Aspart [Insulin Aspart 7 unit SQ AC-TID 11/04/22 12/16/22 History Flexpen] Dapagliflozin Propanediol [Farxiga] 5 mg PO DAILY 11/05/22 12/16/22 History Ezetimibe [Zetia] 10 mg PO DAILY 11/05/22 12/16/22 History Spironolactone 25 mg PO DAILY 11/05/22 12/16/22 History gemfibroziL [Lopid] 600 mg PO AC-BID 11/05/22 12/16/22 History icosapent ethyL [Icosapent Ethyl] 1 gm PO BID 11/05/22 12/16/22 History metFORMIN HCL 500 mg PO BID 11/05/22 12/16/22 History sitaGLIPtin [Januvia] 100 mg PO DAILY 11/05/22 12/16/22 History Aspirin 325 mg PO DAILY tab 11/08/22 12/16/22 Rx Atorvastatin [Lipitor] 80 mg PO HS #30 tab 11/08/22 12/16/22 Rx Clopidogrel [Plavix] 75 mg PO DAILY #30 tab 11/08/22 12/16/22 Rx Insulin Detemir [Levemir Flexpen] 15 units SQ DAILY #5 pen 11/08/22 12/16/22 Rx Metoprolol Tartrate [Lopressor] 100 mg PO BID #60 tab 11/08/22 12/16/22 Rx Allergies Allergy/AdvReac Type Severity Reaction Status Date / Time Penicillins Allergy Rash/Hives Verified 12/16/22 10:36 Surgical - Exam Vital Signs Temp Pulse Resp BP Pulse Ox 97.5 F L 61 20 109/89 98 12/16/22 01:24 12/16/22 01:24 12/16/22 01:24 12/16/22 01:24 12/16/22 01:24 - General well developed, well nourished, no distress - Eyes PERRL - ENT normal pinna - Neck no masses - Respiratory normal expansion - Cardiovascular Rhythm: regular - Abdomen Abdomen: soft, non tender Results - Labs 12/16/22 01:45 12/16/22 01:45 Abnormal Lab Results - Last 24 Hours (Table) 12/17/22 12/17/22 12/17/22 Range/Units 11:40 16:39 20:14 POC Glucose (mg/dL) 139 H 112 H 120 H (70-110) mg/dL 12/18/22 Range/Units 06:09 POC Glucose (mg/dL) 128 H (70-110) mg/dL Assessment and Plan Plan: Protein calorie malnutrition Dysphagia related to failed swallow study. The patient currently has NG tube tube feeds. He may require a PEG tube we will follow with you.
[2022-12-18] MEDS: ASPIRIN 81 MG PO SCH (09:52)
[2022-12-18] MEDS: METOPROLOL TARTRATE 50 MG TAB PO SCH ×2 (09:52→20:14)
[2022-12-18] MEDS: EZETIMIBE 10 MG TAB PO SCH (09:52)
[2022-12-18] MEDS: LINAGLIPTIN 5 MG TABLET PO SCH (09:52)
[2022-12-18] MEDS: SPIRONOLACTONE 25 MG TAB PO SCH (09:52)
[2022-12-18] MEDS: HEPARIN SODIUM,PORCINE/PF 5,000 UNIT/0.5 ML SYRINGE SQ SCH ×2 (09:52→20:06)
[2022-12-18] MEDS: TICAGRELOR 90 MG TAB PO SCH ×2 (09:52→20:06)
[2022-12-18] MEDS: DAPAGLIFLOZIN PROPANEDIOL 5 MG TABLET PO SCH (09:53)
[2022-12-18] MEDS: Icosapent Ethyl [Icosapent Ethyl] 1 GM Capsule PO SCH ×2 (09:53→20:14)
[2022-12-18] MEDS: ACETAMINOPHEN TAB 325 MG TAB PO PRN (09:53)
[2022-12-18 11:23] LABS: Basophils # (A) 0.1 k/uL (0-0.2); Basophils % (A) 1 %; Eosinophils # (A) 0.2 k/uL (0-0.7); Eosinophils % (A) 2 %; HCT 53.8 % (39.0-53.0); HGB 17.8 gm/dL (13.0-17.5); Lymphocytes # (A) 1.7 k/uL (1.0-4.8); Lymphocytes % (A) 18 %; MCH 31.3 pg (25.0-35.0); MCHC 33.1 g/dL (31.0-37.0); MCV 94.3 fL (80.0-100.0); Mean Platelet Volume 9.7; Monocytes # (A) 0.4 k/uL (0-1.0); Monocytes % (A) 4 %; Neutrophils # (A) 6.8 k/uL (1.3-7.7); Neutrophils % (A) 73 %; Platelet Count 212 k/uL (150-450); RBC 5.71 m/uL (4.30-5.90); RDW 14.5 % (11.5-15.5); WBC 9.3 k/uL (3.8-10.6)
[2022-12-18 11:38] LABS: Glucose,Whole Blood 119 mg/dL (70-110)
[2022-12-18 11:47] LABS: ALT 14 U/L (4-49); AST 22 U/L (17-59); African American GFR (CKD) >90 (>60 ml/min/1.73 sqM); Albumin 3.9 g/dL (3.5-5.0); Alkaline Phosphatase 104 U/L (38-126); Anion Gap 13 mmol/L; Blood Urea Nitrogen 10 mg/dL (9-20); Calcium 8.9 mg/dL (8.4-10.2); Carbon Dioxide 16 mmol/L (22-30); Chloride 108 mmol/L (98-107); Glucose 123 mg/dL (74-99); Non-African American GFR(CKD) >90 (>60 ml/min/1.73 sqM); Potassium 4.3 mmol/L (3.5-5.1); Sodium 137 mmol/L (137-145); Total Bilirubin 0.9 mg/dL (0.2-1.3); Total Protein 7.1 g/dL (6.3-8.2)
--- NOTE | 2022-12-18 11:48 | P.PN ---
Subjective Progress Note Date: 12/18/22 The patient is a 67-year-old male menopause in the office with Dr. Mckeon. He has a significant cardiac history. Cardiology was consulted for preoperative clearance prior to the patient undergoing carotid endarterectomy. The patient is deemed to moderate risk for the procedure, however he may proceed. This is tentatively scheduled for Tuesday. The patient was interviewed and examined resting comfortably in bed. He is getting tube feedings through an NG tube. He denied any chest pain or difficult y breathing by nodding. The patient was not verbal at the time of my exam. GENERAL: Ill-appearing, well-nourished and in no acute distress. NECK: Supple without JVD or thyromegaly. LUNGS: Breath sounds clear to auscultation bilaterally. Respiration equal and unlabored. No wheezes or rales. Bilateral rhonchi HEART: Regular rate and rhythm. Systolic ejectio murmur. No rubs or gallops. S1 and S2 heard. EXTREMITIES: Normal range of motion, no edema. No clubbing or cyanosis. Peripheral pulses intact and strong. TELEMETRY: Sinus rhythm overnight IMPRESSION: Preoperative clearance Acute CVA Carotid atherosclerosis Coronary artery disease with prior stenting and CABG Hypertension Hyperlipidemia Aortic stenosis, moderate PLAN: No changes to medication regimen Recommend aggressive pulmonary hygiene No further recommendations from the cardiac standpoint I am dictating on behalf of Dr William Desai's history/physical and assessment/plan. Objective - Vital Signs Vital signs: Vital Signs Temp 97.9 F 12/18/22 09:50 Pulse 68 12/18/22 11:35 Resp 18 12/18/22 11:35 BP 130/76 12/18/22 11:35 Pulse Ox 98 12/18/22 11:35 FiO2 Intake & Output 12/17/22 12/18/22 12/18/22 18:59 06:59 18:59 Output Total 750 500 Balance -750 -500 Weight 76.5 kg Output: Urine 375 500 Post Void Residual 375 Other: Voiding Method Urinal External Catheter External Catheter - Labs CBC & Chem 7: 12/18/22 11:11 12/16/22 01:45 Labs: Abnormal Lab Results - Last 24 Hours (Table) 12/17/22 12/17/22 12/17/22 Range/Units 11:40 16:39 20:14 Hgb (13.0-17.5) gm/dL Hct (39.0-53.0) % POC Glucose (mg/dL) 139 H 112 H 120 H (70-110) mg/dL 12/18/22 12/18/22 12/18/22 Range/Units 06:09 11:11 11:36 Hgb 17.8 H (13.0-17.5) gm/dL Hct 53.8 H (39.0-53.0) % POC Glucose (mg/dL) 128 H 119 H (70-110) mg/dL
--- NOTE | 2022-12-18 12:02 | XR ---
EXAMINATION TYPE: XR abdomen 1V DATE OF EXAM: 12/18/2022 11:36 AM CLINICAL HISTORY: NG tube placement TECHNIQUE: Single supine KUB image of the abdomen is obtained. COMPARISON: CT February 04, 2020. FINDINGS: Image only includes the abdomen and pelvis along with the lung bases. Nasogastric tube term inates above the diaphragm within distal esophagus. Gas seen in nondistended stomach. Some gas and fe sondra material seen in nondistended colon. There is overlying arterial vascular calcification. There is multilevel spurring in the thoracolumbar spine. Lung bases are clear. No free air is seen. IMPRESSION: As above. Advise advancing nasogastric tube.
--- NOTE | 2022-12-18 13:05 | P.PN ---
Subjective Progress Note Date: 12/18/22 HISTORY OF PRESENT ILLNESS This is a 67-year-old male with past medical history of diabetes mellitus type 2, hypertension, hyperlipidemia, history of OH in 2010 status post stent of the circumflex, known to have triple-vessel coronary artery disease with totally occluded collateralized right coronary artery, status post coronary artery bypass grafting using the left internal mammary artery to the left anterior descending artery, left radial artery from the aorta to the obtuse marginal artery, reverse saphenous vein graft from the aorta to the posterior descending artery, overall preserved left ventricular function, mild aortic stenosis, mild COPD with preoperative FEV1 63% of predicted, obesity, umbilical and epigastric hernia. Patient presented to the hospital due to increasing weakness and sl urred speech with history of a stroke a month ago that affected his speech and the left side of his body and was discharged on 11/08. During the hospitalization, Echocardiogram revealed EF of 55-60%, mild LVH, moderate mitral annular calcification, trace mitral regurgitation, moderate aortic stenosis, mild tricuspid regurgitation. Patient underwent MARISELA with Dr. Mckeon which revealed no cardiac source for CVA. Mild mitral and tricuspid regurgitation. Moderate aortic stenosis with mean gradient of 23 mmHg. Patient was evaluated by therapies with recommendations for home. Cardiology planned for outpatient stress testing with Dr. Mckeon and patient was to follow-up with vascular surgery regarding bilateral carotid stenosis. Patient really has had completely cover of his left-sided weakness and slurred speech. Family noticed that patient was having some difficulty with balance and walking and he started complaining of a headache and pressure behind his eye and not feeling well in general. He also was noted have incontinence and did not realize he was incontinent. Then he developed significant weakness on the left side and slurred speech and difficulty swallowing and presented to [facility] for further evaluation. Patient presents to the hospital with increased weakness and slurred speech that had progressed over the last 48 hours along with difficulty ambulating. Initial blood pressure was 109/89. WBC 11.6, hemoglobin 16.4, platelet count 218. Electrolytes are normal, creatinine 0.68. Blood sugar 192. Troponin negative. EKG sinus rhythm with no acute ST changes. CAT scan of the brain revealed no acute findings. Consult in place with vascular surgery with plans for carotid endarterectomy during this hospitalization, consult with cardiology for surgical clearance. 12/17: Patient is seen today on the cardiac stepdown unit. Patient has been seen by cardiology and cleared for carotid endarterectomy knowing that he is at intermediate risk for perioperative complications. Patient was seen by speech therapy and recommended nothing by mouth patient unable to pass a bedside swallow evaluation by speech. Patient is not safe to undergo modified barium swallow at this time. We will plan to place NG tube for patient to get his medications. Patient is also been seen by PT OT. He continues to have difficulty weakness on the left side along with expressive aphasia. Patient has been afebrile, heart rate 91, blood pressure 148/70, pulse ox 90% on room air. Blood sugars are running between 139-180. Neurology has discontinued Plavix is thought to have failed treatment and started Brilinta along with aspirin 81 mg daily, Lipitor 81 mg daily plan for permissive hypertension for the next 24 hours. Carotid ultrasound revealed less than 50% stenosis of the right carotid bifurcation, 50-69% stenosis on the left. 12/18: Patient did have an NG tube placement yesterday because the patient is not able to swallow anything at this point in time, due to his acute ischemic stroke in the right brainstem unless to the left breast and, with an old right occipital stroke, patient will be maintained on Brilinta 90 mg orally twice every day. Aspirin 81 mg once every day, and maximum dose of statin, neurology as well as vascular surgeon is following, patient will require intervention of his significant carotid artery stenosis, patient also is very noncompliant with medications treatment and follow-ups, we will continue to monitor the patient very closely, his daughters were at the bedside and updated about his current condition his prognosis overall is very guarded. REVIEW OF SYSTEMS Constitutional: No fever, no chills, no night sweats. No weight change. Reports left weakness. No daytime sleepiness. EENT: Reports headache. No blurred vision or double vision, no loss of vision. No loss of Hearing, no ringing in the ears, no dizziness. No nasal drainage or congestion. No epistaxis. No sore throat. Lungs: No shortness of breath, cough, no sputum production. No wheezing. Cardiovascular: No chest pain, no lower extremity edema. No palpitations. No paroxysmal nocturnal dyspnea. No orthopnea. No lightheadedness or dizziness. No syncopal episodes. Abdominal: No abdominal pain. No nausea, vomiting. No diarrhea. No c onstipation. No bloody or tarry stools. No loss of appetite. Genitourinary: No dysuria, increased frequency, urgency. No urinary retention. Musculoskeletal: No myalgias. Noted muscle weakness left side, noted gait dysfunction, no frequent falls. Chronic back pain. Integumentary: No wounds, no lesions. No rash or pruritus. No unusual bruising. No change in hair or nails. Neurologic: Reports slurred speech and weakness. Noted facial droop. Noted change in mentation. No head injury. Psychiatric: No depression. No anxiety. No mood swings. Endocrine: No abnormal blood sugars. No weight change. No excessive sweating or thirst. No cold intolerance. PHYSICAL EXAMINATION Gen: This is a 63-year-old male. He is sitting up in bed and appears to be comfortable and in no acute distress. Family members at bedside. HEENT: Head is atraumatic, normocephalic. Pupils equal, round. Sclerae is anicteric. Cortisone place to the right internal jugular. NECK: Supple. No JVD. No lymphadenopathy. No thyromegaly. LUNGS: Diminished bilaterally but otherwise clear to auscultation. No wheezes or rhonchi. No intercostal retractions. HEART: Regular rate and rhythm. 2/6 systolic ejection murmur. ABDOMEN: Soft. Bowel sounds are present. No masses. No tenderness. Ac[address] draining clear lois urine. EXTREMITIES: No pedal edema. No calf tenderness. NEUROLOGICAL: Patient is awake, alert, weakness on the left, aphasia. ASSESSMENT AND PLAN 1. Acute ischemic CVA in the right brain stem and to a lesser degree in the left brain stem. we will continue with ASA 81 mg per NGT , Brilinta 90 mg NGT bid and Atorvastatin 80 mg , Zetia 10 mg and we will need Carotid intervention , vascular is following. 2. Acute ischemic stroke with left hemiparesis . and currently with slurred speech and not able to swallow at this time, NGT is in since there is no one can put Dobb-Alegre . 3. Bilateral internal carotid artery stenosis. Consult appreciated with vascular surgery with plan for carotid endarterectomy during this hospitalization 4. Dysphagia. NG tube placed for patient to receive medications and also nutrition until modified barium swallow can be done most likely next week. 5. Coronary artery disease status post 3 vessel CABG details above as well as previous stenting of circumflex. Continue patient on aspirin, Lipitor and zetia 6. Hypertension and hypertensive cardiovascular disease. Continue patient on Aldactone 25 mg daily, Lopressor 100 mg twice daily, we will continue to monitor BP very closely. 7. Hyperlipidemia. Continue Lipitor 80 mg daily, Zetia 10 mg daily. 8. Mild COPD, stable without exacerbation 9. Diabetes mellitus type 2. Continue patient on Levemir 15 units daily, Farxiga 5 mg daily, Tradjenta 5 mg daily, NovoLog insulin scale before meals and at bedtime. 10. Moderate aortic stenosis. Cardiology is following 11. GI prophylaxis. Protonix 40 mg daily. 12. DVT prophylaxis. Heparin 5000 units SC q12 hours. 13. Prognosis is very guarded. 14. he will require ECF post hospitalization Objective - Vital Signs Vital signs: Vital Signs Temp 97.9 F 12/18/22 09:50 Pulse 104 H 12/18/22 09:50 Resp 18 12/18/22 09:50 BP 163/79 12/18/22 09:50 Pulse Ox 96 12/18/22 09:50 FiO2 Intake & Output 12/17/22 12/18/22 12/18/22 18:59 06:59 18:59 Output Total 750 500 Balance -750 -500 Weight 76.5 kg Output: Urine 375 500 Post Void Residual 375 Other: Voiding Method Urinal External Catheter External Catheter - Labs CBC & Chem 7: 12/16/22 01:45 12/16/22 01:45 Labs: Abnormal Lab Results - Last 24 Hours (Table) 12/17/22 12/17/22 12/17/22 Range/Units 11:40 16:39 20:14 POC Glucose (mg/dL) 139 H 112 H 120 H (70-110) mg/dL 12/18/22 Range/Units 06:09 POC Glucose (mg/dL) 128 H (70-110) mg/dL
--- NOTE | 2022-12-18 15:03 | P.PN ---
Subjective Progress Note Date: 12/18/22 Patient is seen at bedside and he does not feel he is doing well. He has an NG tube. He continues to have significant weakness in the left side. Objective - Vital Signs Vital signs: Vital Signs Temp 97.9 F 12/18/22 09:50 Pulse 68 12/18/22 11:35 Resp 18 12/18/22 11:35 BP 130/76 12/18/22 11:35 Pulse Ox 98 12/18/22 11:35 FiO2 Intake & Output 12/17/22 12/18/22 12/18/22 18:59 06:59 18:59 Output Total 750 500 Balance -750 -500 Weight 76.5 kg Output: Urine 375 500 Post Void Residual 375 Other: Voiding Method Urinal External Catheter External Catheter - Exam GENERAL: The patient is lying in bed and is not in acute distress. NEUROLOGICAL: Higher mental function: The patient is awake, alert,. Patient is following simple commands. No aphasia and no neglect. Cranial nerves: The pupils are round, equal and reactive to light. Visual bishop full to confrontation. Extraocular movement is intact no nystagmus is noted. The facial strength is mild to moderate left lower facial weakness. Has severe dysarthria is noted. Has NG tube. . Motor: The strength is left sided is significant weakness in the upper and lowe r. He is able to wiggle his hand and slightly move the hand and wrist and it's about a 2. He's able to move the toes. Otherwise he has significant weakness on the left side. 5 over 5 throughout right. Decrease tone predominately left side. Otherwise normal tone and bulk. Cerebellum: Had to assess finger to nose on left because of weakness but normal on the right. Sensation: Sensation is decreased on the left. Some other workup during this hospital visit consisted of: Hemoglobin A1c is 10.0 Lipid panel is TG 376, cholesterol 190, LDL 77 and HDL is 37. CT of the head is reported as no acute finding in the head/brain. Personally reviewed the CT of the head and there is no acute or subacute ischemia. Carotid duplex was reported as less than 50% stenosis on the right carotid bifurcation. 50-60% stenosis on the left carotid bifurcation. MRI Brain is reported as acute is ischemic changes, an interval finding within brainstem right > left. Residual right occipital lobe can be related to the old ischemic change. Chronic appearing deep white matter changes. I personally reviewed the MRI and I agree with the report and in addition I also felt the patient had a small focus over the right temporal lesion. Brainstem is involving the lateral pontine region . - Labs CBC & Chem 7: 12/18/22 11:11 12/18/22 11:11 Labs: Abnormal Lab Results - Last 24 Hours (Table) 12/17/22 12/17/22 12/18/22 Range/Units 16:39 20:14 06:09 Hgb (13.0-17.5) gm/dL Hct (39.0-53.0) % Chloride (98-107) mmol/L Carbon Dioxide (22-30) mmol/L Creatinine (0.66-1.25) mg/dL Glucose (74-99) mg/dL POC Glucose (mg/dL) 112 H 120 H 128 H (70-110) mg/dL 12/18/22 12/18/22 12/18/22 Range/Units 11:11 11:11 11:36 Hgb 17.8 H (13.0-17.5) gm/dL Hct 53.8 H (39.0-53.0) % Chloride 108 H (98-107) mmol/L Carbon Dioxide 16 L (22-30) mmol/L Creatinine 0.63 L (0.66-1.25) mg/dL Glucose 123 H (74-99) mg/dL POC Glucose (mg/dL) 119 H (70-110) mg/dL Assessment and Plan Assessment: This is a 67-year-old gentleman who presented that because of left-sided weakness and numbness with dysarthria. Patient stated that his symptoms began on 12/15/2022 in the afternoon for the ED was accompanied with his daughter and is seems his symptoms has been progressive for the last 48 hours prior to presenting to the hospital. Acute ischemic stroke (bilateral brainstem over pontine region and right > left) and felt small focus over the right temporal region. Etiology seems embolic in nature. Has severe bilateral carotid stenosis on most recent CTA in 11/14. Rule out any cardioembolic. Dysphagia due to above Significant right hemiparesis due to above. Recent stroke in the second week of October 2022 in which she had the right occipital and was also felt likely due to symptomatic right ICA stenosis. At that time also patient had the left-sided weakness with facial droop and slurred speech and his symptoms resolved. Patient also had the MRI which also reported acute to subacute left hernandez radiata but was felt likely T2 shine through and not acute or subacute stroke. Vascular team ask for him to follow-u as outpatient. Significant bilateral carotid stenosis. Right ICA is 80-85% while left is 85% per CTA while the duplex is 50-69% on the right while left is less than 50% Dyslipidemia Diabetes mellitus Hypertension Hard of hearing History of coronary artery disease status post stent as well as CABG Tobacco use Plan: I ordered STAT CTA head and neck. Recommend the patient to be transferred to ICU for close neuro checks Q1 hours. I stop Plavix since the patient failed the medication. I started the patient on Brilinta 90mg bid I decreased ASA from 325mg to 81mg daily. Continue Lipitor 80 mg daily at bedtime for secondary stroke prophylaxis. Vascular surgery team consulted for his symptomatic right ICA stenosis and recommend to be addressed during this admission. He had similar presentation just a bit more than a month ago and was told to have carotid addressed as outpatient. I spoke with the vascular surgery team. Recommend blood pressure to be within 140-180's. Q1 Neurochecks Cardiac monitoring Ordered repeat 2D echo limited since he had an echo about a month ago. If negative recommend pursuing MARISELA. PT, OT and PHP [employer] are consulted We'll defer the rest of the medical management to the primary team For DVT prophylaxis IOn subcu heparin 5000 units every 12 hours Condition is critical I spoke with Dr. Erick Coffey for ICU transfer and he accepted. The plan was discussed with the patient and his nurse. Time with Patient: Less than 30
--- NOTE | 2022-12-18 15:59 | CT ---
EXAMINATION TYPE: CT angio head neck CT DLP: 594 mGycm, Automated exposure control for dose reduction was used. DATE OF EXAM: 12/18/2022 3:43 PM COMPARISON: 12/17/2022 MRI brain and 11/04/2022 CLINICAL INDICATION:Male, 67 years old with history of brainstem stroke. r/o posterior circulation th romb; PHH, brainstem stroke TECHNIQUE: Axially acquired helical CT angiogram of the head and neck was obtained with contrast. Axi al images are supplemented with 3D reconstructions [facility] criteria used. Contrast used:65 cc mL of Isovue 370 with IV Contrast, Oral contrast used: None. FINDINGS: CTA HEAD: No evidence of acute intracranial hemorrhage, mass effect, or midline shift. The ventricles, sulci, a nd cisterns are unremarkable. The visualized portions of the internal carotid arteries, middle cerebral arteries, anterior cerebral arteries, and posterior cerebral arteries are patent. The basilar and vertebral arteries are patent. Atherosclerosis of the intracranial vertebral arteries . The arteries are patent. CTA NECK: Right Carotid System: The common carotid and external carotid arteries are patent. There is approximately at least 70 % michael nosis at the carotid bifurcation secondary to calcified/noncalcified plaquing. The rest of the internet developer al carotid artery is patent. Left Carotid System: The common carotid and external carotid arteries are patent. There is approximately at least 90 % michael nosis at the carotid bifurcation secondary to calcified/noncalcified plaquing. The rest of the internet developer al carotid artery is patent. Vertebral arteries are patent without evidence hemodynamically significant stenosis. Atherosclerosis at the origin of the vertebral arteries with blooming artifact limiting evaluation for stenosis. The vertebral arteries are patent. Equal in caliber. Vertebral arteries are patent in the cervical portio n. There is a two-vessel aortic arch with common origin of the left common carotid artery and brachyceph alic trunk.. The origins of the great vessels are patent. No evidence of hemodynamically significant stenosis. There is atherosclerosis of the aortic arch. Upper thorax: Mild paraseptal emphysema changes bilaterally. There is thickening of interlobular sept a. Nasogastric tube is appropriately positioned within the esophagus. Atherosclerosis of the arterial vasculature including the coronary arteries. Sternotomy wires are partially visualized. IMPRESSION: 1. Calcified noncalcified plaque at the carotid bifurcations withe at least 70% stenosis on the righ t and 90% stenosis on the left. 2. No evidence of dissection of the cervical internal carotid arteries or vertebral arteries. 3. No evidence of intracranial high-grade stenosis or intracranial aneurysm. 4. Mild pulmonary vascular congestion with cardiomegaly correlate for congestive heart failure.
[2022-12-18] MEDS: SODIUM CHLORIDE 0.9% 1,000 ML IV SCH (17:39)
[2022-12-18 17:43] LABS: Glucose,Whole Blood 98 mg/dL (70-110)
[2022-12-18] MEDS: ATORVASTATIN 80 MG TAB PO SCH (20:06)
[2022-12-18 23:46] LABS: Glucose,Whole Blood 120 mg/dL (70-110)
[2022-12-19] MEDS: INSULIN ASPART (NovoLOG) 100 UNIT/ML VIAL SQ SCH ×5 (00:11→23:21)
[2022-12-19 03:44] LABS: Basophils # (A) 0.1 k/uL (0-0.2); Basophils % (A) 1 %; Eosinophils # (A) 0.3 k/uL (0-0.7); Eosinophils % (A) 3 %; HCT 50.7 % (39.0-53.0); HGB 16.9 gm/dL (13.0-17.5); Lymphocytes # (A) 1.7 k/uL (1.0-4.8); Lymphocytes % (A) 18 %; MCHC 33.4 g/dL (31.0-37.0); MCV 92.9 fL (80.0-100.0); Monocytes # (A) 0.4 k/uL (0-1.0); Monocytes % (A) 5 %; Neutrophils # (A) 6.6 k/uL (1.3-7.7); Neutrophils % (A) 72 %; Platelet Count 199 k/uL (150-450); RBC 5.46 m/uL (4.30-5.90); RDW 14.4 % (11.5-15.5); WBC 9.3 k/uL (3.8-10.6)
[2022-12-19 03:55] LABS: ALT 13 U/L (4-49); AST 21 U/L (17-59); African American GFR (CKD) >90 (>60 ml/min/1.73 sqM); Albumin 3.4 g/dL (3.5-5.0); Alkaline Phosphatase 94 U/L (38-126); Anion Gap 14 mmol/L; Blood Urea Nitrogen 11 mg/dL (9-20); Calcium 8.5 mg/dL (8.4-10.2); Carbon Dioxide 15 mmol/L (22-30); Chloride 107 mmol/L (98-107); Glucose 112 mg/dL (74-99); Non-African American GFR(CKD) >90 (>60 ml/min/1.73 sqM); Potassium 3.7 mmol/L (3.5-5.1); Sodium 136 mmol/L (137-145); Total Bilirubin 0.9 mg/dL (0.2-1.3); Total Protein 6.5 g/dL (6.3-8.2)
[2022-12-19] MEDS ORDERED: Potassium Replacement Protocol 1 EACH MISC MISCELLANE PRN (03:58)
[2022-12-19] MEDS ORDERED: POTASSIUM BICARBONATE/CIT AC 20 MEQ TABLET.EFF NG-TUBE SCH (06:00)
[2022-12-19] MEDS: PANTOPRAZOLE 40 MG TABLET PO SCH (06:56)
[2022-12-19] MEDS: SODIUM CHLORIDE 0.9% 1,000 ML IV SCH ×2 (06:56→12:24)
[2022-12-19] MEDS: Icosapent Ethyl [Icosapent Ethyl] 1 GM Capsule PO SCH ×2 (08:43→21:24)
[2022-12-19] MEDS: METOPROLOL TARTRATE 50 MG TAB PO SCH ×2 (08:44→20:35)
[2022-12-19] MEDS: EZETIMIBE 10 MG TAB PO SCH (09:02)
[2022-12-19] MEDS: ASPIRIN 81 MG PO SCH (09:02)
[2022-12-19] MEDS: HEPARIN SODIUM,PORCINE/PF 5,000 UNIT/0.5 ML SYRINGE SQ SCH ×2 (09:02→21:19)
[2022-12-19] MEDS: DAPAGLIFLOZIN PROPANEDIOL 5 MG TABLET PO SCH (09:02)
[2022-12-19] MEDS: TICAGRELOR 90 MG TAB PO SCH ×2 (09:02→21:19)
[2022-12-19] MEDS: SPIRONOLACTONE 25 MG TAB PO SCH (09:02)
[2022-12-19] MEDS: LINAGLIPTIN 5 MG TABLET PO SCH (09:02)
--- NOTE | 2022-12-19 10:08 | P.CNPUL ---
History of Present Illness Consult date: 12/19/22 Requesting physician: Jayce Coffey Reason for consult: other (Critical care management) Chief complaint: Slurred speech, left-sided weakness History of present illness: This is a 67-year-old male gentleman seen today in consultation in the intensive care unit. He has a history of chronic and ongoing tobacco dependence, hyperlipidemia, hypertension, diabetes mellitus, type II, coronary disease with previous coronary bypass grafting and stent placement. Recent admission in October 2022 for an acute ischemic stroke with left hemiparesis. MARISELA revealed no cardiac source for CVA. CT angiogram revealed a right internal carotid artery stenosis of 80-85% and a left internal carotid artery stenosis of 85%. He was to follow with vascular surgery in the outpatient setting. Unfortunately he presented back here to the hospital on 12/16/2022 with a one-day history of increasing weakness slurred speech and left-sided weakness. MRI of the brain revealed acute ischemic changes interval finding within the right brainstem and to a lesser degree left brain stem. Residual signal abnormality in the right occipital lobe considered to be the old ischemic change. Angiography revealed calcified and noncalcified plaque at the carotid bifurcations with at least 70% stenosis on the right and 90% stenosis on the left. No evidence of dissection. No evidence of intracranial high-grade stenosis or intracranial aneurysm. He was transferred to the intensive care unit for closer monitoring throughout the night. He is seen today in consultation in the ICU. He is currently sitting up in bed. He is quite aphasic. Congested. Nasogastric tube is in place. He is being nourished with Glucerna at 60 ML's per hour. He has 0.9 normal saline at 75 ML's per hour. He is currently maintaining good O2 saturations in the 90s on room air. Aspiration precautions. His left side is still quite weak able to raise his left arm but his hand is weak. Not able to raise his left leg. White count 9.3. He was 16.9. Platelets 199. Sodium 136. Potassium 3.7. Bicarb 15. BUN 11. Creatinine 0.57. Glucose 112. He is continued on aspirin and Brilinta. Heparin for DVT prophylaxis. Review of Systems ROS unobtainable: due to mental status Past Medical History Past Medical History: Diabetes Mellitus, Hyperlipidemia, Hypertension, Myocardial Infarction ([place]) Additional Past Medical History / Comment(s): current umbilical hernia Last Myocardial Infarction Date:: 2010 History of Any Multi-Drug Resistant Organisms: None Reported Past Surgical History: Coronary Bypass/CABG, Heart Catheterization With Stent Additional Past Surgical History / Comment(s): recent cardiac cath, valve replacement Past Anesthesia/Blood Transfusion Reactions: No Reported Reaction Additional Past Anesthesia/Blood Transfusion Reaction / Comment(s): no surgical hx Date of Last Stent Placement:: 2010 Past Psychological History: No Psychological Hx Reported Smoking Status: Never smoker Past Alcohol Use History: None Reported Additional Past Alcohol Use History / Comment(s): The patient smokes cigars off and on since age 17. No alcohol or illicit drug use. Past Drug Use History: None Reported - Past Family History Mother Family Medical History: No Reported History Additional Family Medical History / Comment(s): Mother at age 72 from diabetes complications. No history of coronary artery disease. Father Family Medical History: Coronary Artery Disease (CAD), Myocardial Infarction ([place]) Additional Family Medical History / Comment(s): father at age 62 from myocardial infarction with history of coronary artery disease. Brother(s) Family Medical History: Coronary Artery Disease (CAD) Additional Family Medical History / Comment(s): Patient has 2 brothers one from myocardial infarction. One brother had myocardial infarction status post 3 vessel CABG. Sister(s) Additional Family Medical History / Comment(s): Patient has 2 sisters and one has diabetes. Patient has 3 daughters and 2 sons with no major medical problems. Medications and Allergies Home Medications Medication Instructions Recorded Confirmed Type Insulin Aspart [Insulin Aspart 7 unit SQ AC-TID 11/04/22 12/16/22 History Flexpen] Dapagliflozin Propanediol [Farxiga] 5 mg PO DAILY 11/05/22 12/16/22 History Ezetimibe [Zetia] 10 mg PO DAILY 11/05/22 12/16/22 History Spironolactone 25 mg PO DAILY 11/05/22 12/16/22 History gemfibroziL [Lopid] 600 mg PO AC-BID 11/05/22 12/16/22 History icosapent ethyL [Icosapent Ethyl] 1 gm PO BID 11/05/22 12/16/22 History metFORMIN HCL 500 mg PO BID 11/05/22 12/16/22 History sitaGLIPtin [Januvia] 100 mg PO DAILY 11/05/22 12/16/22 History Aspirin 325 mg PO DAILY tab 11/08/22 12/16/22 Rx Atorvastatin [Lipitor] 80 mg PO HS #30 tab 11/08/22 12/16/22 Rx Clopidogrel [Plavix] 75 mg PO DAILY #30 tab 11/08/22 12/16/22 Rx Insulin Detemir [Levemir Flexpen] 15 units SQ DAILY #5 pen 11/08/22 12/16/22 Rx Metoprolol Tartrate [Lopressor] 100 mg PO BID #60 tab 11/08/22 12/16/22 Rx Allergies Allergy/AdvReac Type Severity Reaction Status Date / Time Penicillins Allergy Rash/Hives Verified 12/16/22 10:36 Physical Exam Vitals: Vital Signs Temp Pulse Pulse Pulse Resp BP BP 12/19/22 09:00 90 24 148/79 12/19/22 08:00 98.2 F 96 20 144/84 12/19/22 07:00 101 H 15 171/81 12/19/22 06:00 93 1 L 152/100 12/19/22 05:00 99 27 H 131/75 12/19/22 04:00 98.1 F 78 21 132/72 12/19/22 03:00 75 19 150/67 12/19/22 02:00 82 20 137/72 12/19/22 01:00 74 25 H 138/75 12/19/22 00:09 83 26 H 12/19/22 00:00 98.1 F 80 26 H 160/85 12/18/22 23:00 86 27 H 137/84 12/18/22 22:00 88 22 161/93 12/18/22 21:00 84 16 132/74 12/18/22 20:00 98.4 F 78 27 H 144/78 12/18/22 19:00 70 12 150/87 12/18/22 18:30 64 19 12/18/22 18:00 75 22 149/92 12/18/22 17:30 76 27 H 149/92 12/18/22 17:00 71 26 H 12/18/22 16:45 96 12/18/22 16:30 97.7 F 66 19 170/96 12/18/22 16:27 78 20 12/18/22 11:35 68 18 130/76 Pulse Ox 12/19/22 09:00 93 L 12/19/22 08:00 93 L 12/19/22 07:00 92 L 12/19/22 06:00 94 L 12/19/22 05:00 93 L 12/19/22 04:00 93 L 12/19/22 03:00 92 L 12/19/22 02:00 96 12/19/22 01:00 96 12/19/22 00:09 95 12/19/22 00:00 93 L 12/18/22 23:00 95 12/18/22 22:00 95 12/18/22 21:00 94 L 12/18/22 20:00 91 L 12/18/22 19:00 96 12/18/22 18:30 95 12/18/22 18:00 96 12/18/22 17:30 95 12/18/22 17:00 96 12/18/22 16:45 96 12/18/22 16:30 96 12/18/22 16:27 96 12/18/22 11:35 98 Intake and Output 12/18/22 12/19/22 12/19/22 22:59 06:59 14:59 Intake Total 620 1100 350 Output Total 200 700 500 Balance 420 400 -150 Intake: IV 375 600 300 Sodium Chloride 0.9% 1, 375 600 300 000 ml @ 75 mls/hr IV . [id number] COUNTS INCLUDE 234 BEDS AT [facility] Rx#:[id number] Intake, IV Titration 75 Amount Sodium Chloride 0.9% 1, 75 000 ml @ 75 mls/hr IV . [id number] COUNTS INCLUDE 234 BEDS AT THE [facility] Rx#:[id number] Tube Feeding 120 400 50 Other 50 100 Output: Urine 200 700 500 Other: Voiding Method External Catheter External Catheter External Catheter # Voids 1 Weight 78.2 kg GENERAL EXAM: Alert, aphasic 67-year-old male, on room air, fairly comfortable in no apparent distress. HEAD: Normocephalic. EYES: Normal reaction of pupils, equal size. NOSE: Nasogastric tube secured in place. Clear with pink turbinates. THROAT: No erythema or exudates. NECK: No masses, no JVD. CHEST: No chest wall deformity. LUNGS: Equal air entry with bilateral scattered rhonchi. CVS: S1 and S2 normal with no audible murmur, regular rhythm. ABDOMEN: No hepatosplenomegaly, normal bowel sounds, no guarding or rigidity. SPINE: No scoliosis or deformity SKIN: No rashes CENTRAL NERVOUS SYSTEM: Aphasic, tone is normal in all 4 extremities. EXTREMITIES: Left upper and lower extremity weakness. There is no peripheral edema. No clubbing, no cyanosis. Peripheral pulses are intact. Results - Laboratory Findings CBC and BMP: 12/19/22 03:29 12/19/22 03:29 PT/INR, D-dimer PT 9.9 sec (9.0-12.0) 12/16/22 01:45 INR 0.9 (<1.2) 12/16/22 01:45 Abnormal lab findings: Abnormal Labs 12/16/22 12/16/22 12/16/22 01:45 01:45 01:45 WBC 11.6 H Hgb Hct Sodium Chloride Carbon Dioxide Creatinine Glucose 192 H POC Glucose (mg/dL) Hemoglobin A1c Total Protein 6.2 L Albumin 3.3 L Triglycerides 376.00 H VLDL Cholesterol, Calc 75.20 H HDL Cholesterol 37.30 L 12/16/22 12/16/22 12/16/22 01:45 17:03 21:06 WBC Hgb Hct Sodium Chloride Carbon Dioxide Creatinine Glucose POC Glucose (mg/dL) 163 H 143 H Hemoglobin A1c 10.0 H Total Protein Albumin Triglycerides VLDL Cholesterol, Calc HDL Cholesterol 12/17/22 12/17/22 12/17/22 06:17 11:40 16:39 WBC Hgb Hct Sodium Chloride Carbon Dioxide Creatinine Glucose POC Glucose (mg/dL) 180 H 139 H 112 H Hemoglobin A1c Total Protein Albumin Triglycerides VLDL Cholesterol, Calc HDL Cholesterol 12/17/22 12/18/22 12/18/22 20:14 06:09 11:11 WBC Hgb 17.8 H Hct 53.8 H Sodium Chloride Carbon Dioxide Creatinine Glucose POC Glucose (mg/dL) 120 H 128 H Hemoglobin A1c Total Protein Albumin Triglycerides VLDL Cholesterol, Calc HDL Cholesterol 12/18/22 12/18/22 12/18/22 11:11 11:36 23:45 WBC Hgb Hct Sodium Chloride 108 H Carbon Dioxide 16 L Creatinine 0.63 L Glucose 123 H POC Glucose (mg/dL) 119 H 120 H Hemoglobin A1c Total Protein Albumin Triglycerides VLDL Cholesterol, Calc HDL Cholesterol 12/19/22 03:29 WBC Hgb Hct Sodium 136 L Chloride Carbon Dioxide 15 L Creatinine 0.57 L Glucose 112 H POC Glucose (mg/dL) Hemoglobin A1c Total Protein Albumin 3.4 L Triglycerides VLDL Cholesterol, Calc HDL Cholesterol - Diagnostic Findings Chest x-ray: image reviewed Assessment and Plan Assessment: Acute ischemic stroke involving the bilateral brainstem over pontine region right greater than left and a small focus over the right temporal region. Suspect embolic in nature. Failed Plavix. Currently on Brilinta, atorvastatin and aspirin Recent stroke in October 2022 in the right occipital region with left-sided weakness, slurred speech and facial droop, mainly resolved Bilateral carotid stenosis History of coronary artery disease with previous stent placement and coronary artery bypass grafting Hypertension Hyperlipidemia Diabetes mellitus Chronic and ongoing tobacco dependence Hearing disorder Plan: The patient was seen and evaluated CTA, MRI brain, chest x-ray, medications and labs reviewed Continued on statins, Brilinta, aspirin Aspiration precautions NG tube in place, continue tube feedings Vascular consulted, plans for carotid endarterectomy this admission Currently stable and on room air We will continue to follow and make further recommendations based on his clinical status I have personally seen and examined the patient, performed the documentation and the assessment and plan as written. Number of minutes spent on the visit: 20.
--- NOTE | 2022-12-19 10:12 | XR ---
EXAMINATION TYPE: XR chest 1V portable DATE OF EXAM: 12/19/2022 9:59 AM COMPARISON: Chest radiographs from 11/04/2022 TECHNIQUE: XR chest 1V portable Frontal view of the chest. CLINICAL INDICATION:Male, 67 years old with history of CVA, dyspnea; FINDINGS: Lungs/Pleura: There is no evidence of pleural effusion, focal consolidation, or pneumothorax. Mild e mphysema changes. Pulmonary vascularity: Unremarkable. Heart/mediastinum: Cardiomediastinal silhouette is unremarkable. Musculoskeletal: No acute osseous pathology. Midline sternotomy wires are noted. Other findings: None Lines/Tubes: Nasogastric tube with side-port projecting over the distal esophagus. IMPRESSION: 1. Nasogastric tube side-port projecting over the distal esophagus consider 8 cm for optimal placeme nt. 2. COPD changes.
--- NOTE | 2022-12-19 10:27 | P.PN ---
Progress Note - Text Progress Note Date: 12/19/22 The patient was transferred to the ICU for observation. Patient still having dysphagia. He is using oral suctioning clear secretions. On exam vital signs remained stable. Abdomen soft. Dysphagia related to CVA. Patient may require a PEG tube to be placed.
--- NOTE | 2022-12-19 11:11 | P.PN ---
Subjective Progress Note Date: 12/19/22 The patient is a 67-year-old male menopause in the office with Dr. Mckeon. He has a significant cardiac history. Cardiology was consulted for preoperative clearance prior to the patient undergoing carotid endarterectomy. The patient is deemed to moderate risk for the procedure, however he may proceed. This is tentatively scheduled for Tuesday. The patient was transferred to the intensive care unit for escalation of care. There was concern about possible respiratory distress and decline in status. Vitals are stable and patient appears more alert at the time of my exam. The patient was interviewed and examined resting comfortably in bed. He states he is having some discomfort in his back and left lower extremity. He denies any chest pain. No labored breathing. GENERAL: Ill-appearing, well-nourished and in no acute distress. NECK: Supple without JVD or thyromegaly. LUNGS: Breath sounds clear to auscultation bilaterally. Respiration equal and unlabored. No wheezes or rales. Bilateral rhonchi HEART: Regular rate and rhythm. Systolic ejectio murmur. No rubs or gallops. S1 and S2 heard. EXTREMITIES: Normal range of motion, no edema. No clubbing or cyanosis. Peripheral pulses intact and strong. TELEMETRY: Sinus rhythm overnight LAB: WBC 9.3, hemoglobin 15.5, hematocrit 50.7, platelet 199, sodium 136, potassium 3.7, BUN 11, creatinine 0.57, AST 21, ALT 13 IMPRESSION: Preoperative clearance Acute CVA Carotid atherosclerosis Coronary artery disease with prior stenting and CABG Hypertension Hyperlipidemia Aortic stenosis, moderate PLAN: Patient is still cleared to proceed with surgery on Tuesday as clinically indicated Recommend aggressive pulmonary hygiene No further recommendations from the cardiac standpoint I am dictating on behalf of Dr William Desai's history/physical and assessment/plan. Objective - Vital Signs Vital signs: Vital Signs Temp 98.2 F 12/19/22 08:00 Pulse 89 12/19/22 10:00 Resp 24 12/19/22 10:00 BP 151/72 12/19/22 10:00 Pulse Ox 92 L 12/19/22 10:00 FiO2 Intake & Output 12/18/22 12/19/22 12/19/22 18:59 06:59 18:59 Intake Total 225 1495 350 Output Total 700 700 500 Balance -475 795 -150 Weight 78.2 kg Intake: IV 150 825 300 Sodium Chloride 0.9% 1, 150 825 300 000 ml @ 75 mls/hr IV . [id number] [facility] Rx#:[id number] Intake, IV Titration 75 Amount Sodium Chloride 0.9% 1, 75 000 ml @ 75 mls/hr IV . [id number] [facility] Rx#:[id number] Tube Feeding 520 50 Other 150 Output: Urine 700 700 500 Other: Voiding Method External Catheter External Catheter External Catheter # Voids 1 - Labs CBC & Chem 7: 12/19/22 03:29 12/19/22 03:29 Labs: Abnormal Lab Results - Last 24 Hours (Table) 12/18/22 12/18/22 12/18/22 Range/Units 11:11 11:11 11:36 Hgb 17.8 H (13.0-17.5) gm/dL Hct 53.8 H (39.0-53.0) % Sodium (137-145) mmol/L Chloride 108 H (98-107) mmol/L Carbon Dioxide 16 L (22-30) mmol/L Creatinine 0.63 L (0.66-1.25) mg/dL Glucose 123 H (74-99) mg/dL POC Glucose (mg/dL) 119 H (70-110) mg/dL Albumin (3.5-5.0) g/dL 12/18/22 12/19/22 Range/Units 23:45 03:29 Hgb (13.0-17.5) gm/dL Hct (39.0-53.0) % Sodium 136 L (137-145) mmol/L Chloride (98-107) mmol/L Carbon Dioxide 15 L (22-30) mmol/L Creatinine 0.57 L (0.66-1.25) mg/dL Glucose 112 H (74-99) mg/dL POC Glucose (mg/dL) 120 H (70-110) mg/dL Albumin 3.4 L (3.5-5.0) g/dL
--- NOTE | 2022-12-19 11:50 | P.PN ---
Subjective Progress Note Date: 12/19/22 The patient is seen in ICU and he feels about the same. Objective - Vital Signs Vital signs: Vital Signs Temp 98.2 F 12/19/22 08:00 Pulse 89 12/19/22 10:00 Resp 24 12/19/22 10:00 BP 151/72 12/19/22 10:00 Pulse Ox 92 L 12/19/22 10:00 FiO2 Intake & Output 12/18/22 12/19/22 12/19/22 18:59 06:59 18:59 Intake Total 225 1495 350 Output Total 700 700 500 Balance -475 795 -150 Weight 78.2 kg Intake: IV 150 825 300 Sodium Chloride 0.9% 1, 150 825 300 000 ml @ 75 mls/hr IV . [id number] [facility] Rx#:[id number] Intake, IV Titration 75 Amount Sodium Chloride 0.9% 1, 75 000 ml @ 75 mls/hr IV . [id number] [facility] Rx#:[id number] Tube Feeding 520 50 Other 150 Output: Urine 700 700 500 Other: Voiding Method External Catheter External Catheter External Catheter # Voids 1 - Exam GENERAL: The patient is lying in bed and is not in acute distress. Lungs: Patient seems coarse throughout lung. NEUROLOGICAL: Higher mental function: The patient is drowsy but is awakeable to voice. He is oriented to self, place and time. No aphasia and no neglect. Cranial nerves: The pupils are round, equal and reactive to light. Extraocular movement is intact no nystagmus is noted. Moderate left lower facial weakness. Has severe moderate to severe dysarthria is noted. Has NG tube. . Motor: The strength is left sided is significant weakness in the upper and lower. He has brief 3/5 strength over the forearm extension and flexion. Left hand that the movements extension and flexion was a 1-2. At one time he was able to approximate lift the left upper extremity above gravity but was only one time. For the left lower extremity was only able to wiggle her toes other than that there is no movement noted. Strength over the right side is 5 over 5. He has decreased tone over the left. Normal bulk bilaterally. Cerebellum: Had to assess finger to nose on left because of weakness but normal on the right. Sensation: Sensation is decreased on the left. Some other workup during this hospital visit consisted of: Hemoglobin A1c is 10.0 Lipid panel is TG 376, cholesterol 190, LDL 77 and HDL is 37. CT of the head is reported as no acute finding in the head/brain. Personally reviewed the CT of the head and there is no acute or subacute ischemia. Carotid duplex was reported as less than 50% stenosis on the right carotid bifurcation. 50-60% stenosis on the left carotid bifurcation. MRI Brain is reported as acute is ischemic changes, an interval finding within brainstem right > left. Residual right occipital lobe can be related to the old ischemic change. Chronic appearing deep white matter changes. I personally reviewed the MRI and I agree with the report and in addition I also felt the patient had a small focus over the right temporal lesion. Brainstem is involving the lateral pontine region . CT angiography of the head and neck was reported as calcified non-calcified plaque at the carotid bifurcation at least 70% stenosis on the right 90% stenosis on the left. No evidence for dissection of the cervical internal carotid artery or vertebral artery. No evidence of intracranial high-grade stenosis or intracranial aneurysm. Mild pulmonary vascular congestion with cardiomegaly correlate for congestive heart failure. - Labs CBC & Chem 7: 12/19/22 03:29 12/19/22 03:29 Labs: Abnormal Lab Results - Last 24 Hours (Table) 12/18/22 12/18/22 12/19/22 Range/Units 11:11 23:45 03:29 Sodium 136 L (137-145) mmol/L Chloride 108 H (98-107) mmol/L Carbon Dioxide 16 L 15 L (22-30) mmol/L Creatinine 0.63 L 0.57 L (0.66-1.25) mg/dL Glucose 123 H 112 H (74-99) mg/dL POC Glucose (mg/dL) 120 H (70-110) mg/dL Albumin 3.4 L (3.5-5.0) g/dL Assessment and Plan Assessment: This is a 67-year-old gentleman who presented that because of left-sided weakness and numbness with dysarthria. Patient stated that his symptoms began on 12/15/2022 in the afternoon for the ED was accompanied with his daughter and is seems his symptoms has been progressive for the last 48 hours prior to presenting to the hospital. Acute ischemic stroke (bilateral brainstem over pontine region and right > left) and felt small focus over the right temporal region. Etiology seems embolic in nature. Has severe bilateral carotid stenosis on most recent CTA in 11/14 and on 12/18/2022 in which has right ICA 70% while left is 90% stenosis. Rule out any cardioembolic. Dysphagia due to above Significant left hemiparesis due to above. Recent stroke in the second week of October 2022 in which she had the right occipital and was also felt likely due to symptomatic right ICA stenosis. At that time also patient had the left-sided weakness with facial droop and slurred speech and his symptoms resolved. Patient also had the MRI which also reported acute to subacute left hernandez radiata but was felt likely T2 shine through and not acute or subacute stroke. Vascular team ask for him to follow-u as outpatient. Significant bilateral carotid stenosis. There is discordinant between CTA and carotid on both time (in 11/14/ and on 12/18/22 which is worse on CTA and not significant on carotid duplex. Recent CTA reveals right ICA 70% while left is 90%). Dyslipidemia Diabetes mellitus Hypertension Hard of hearing History of coronary artery disease status post stent as well as CABG Tobacco use Plan: s. During this admission, I stopped Plavix since the patient failed the medication. I started the patient on Brilinta 90mg bid I decreased ASA from 325mg to 81mg daily. Continue Lipitor 80 mg daily at bedtime for secondary stroke prophylaxis. Vascular surgery team consulted for his symptomatic right ICA stenosis and recommend to be addressed during this admission then after that recommend left ICA to be addressed. He had similar presentation just a bit more than a month ago and was told to have carotid addressed as outpatient. Recommend blood pressure to be within 140-180's. Q1 Neurochecks Cardiac monitoring Ordered repeat 2D echo limited since he had an echo about a month ago. If negative consider pursuing MARISELA. PT, OT and COMMERCIAL CREDIT REVIEWER are consulted Cardiology is on board. We'll defer the rest of the medical management to the primary team For DVT prophylaxis IOn subcu heparin 5000 units every 12 hours Condition is critical The plan was discussed with the patient and his nurse. Dr. Estrella will start neurology service tomorrow A.M. Time with Patient: Less than 30
--- NOTE | 2022-12-19 11:50 | P.PN ---
Subjective Progress Note Date: 12/19/22 HISTORY OF PRESENT ILLNESS This is a 67-year-old male with past medical history of diabetes mellitus type 2, hypertension, hyperlipidemia, history of [place] in 2010 status post stent of the circumflex, known to have triple-vessel coronary artery disease with totally occluded collateralized right coronary artery, status post coronary artery bypass grafting using the left internal mammary artery to the left anterior descending artery, left radial artery from the aorta to the obtuse marginal artery, reverse saphenous vein graft from the aorta to the posterior descending artery, overall preserved left ventricular function, mild aortic stenosis, mild COPD with preoperative FEV1 63% of predicted, obesity, umbilical and epigastric hernia. Patient presented to the hospital due to increasing weakness and sl urred speech with history of a stroke a month ago that affected his speech and the left side of his body and was discharged on 11/08. During the hospitalization, Echocardiogram revealed EF of 55-60%, mild LVH, moderate mitral annular calcification, trace mitral regurgitation, moderate aortic stenosis, mild tricuspid regurgitation. Patient underwent MARISELA with Dr. Mckeon which revealed no cardiac source for CVA. Mild mitral and tricuspid regurgitation. Moderate aortic stenosis with mean gradient of 23 mmHg. Patient was evaluated by therapies with recommendations for home. Cardiology planned for outpatient stress testing with Dr. Mckeon and patient was to follow-up with vascular surgery regarding bilateral carotid stenosis. Patient really has had completely cover of his left-sided weakness and slurred speech. Family noticed that patient was having some difficulty with balance and walking and he started complaining of a headache and pressure behind his eye and not feeling well in general. He also was noted have incontinence and did not realize he was incontinent. Then he developed significant weakness on the left side and slurred speech and difficulty swallowing and presented to [facility] for further evaluation. Patient presents to the hospital with increased weakness and slurred speech that had progressed over the last 48 hours along with difficulty ambulating. Initial blood pressure was 109/89. WBC 11.6, hemoglobin 16.4, platelet count 218. Electrolytes are normal, creatinine 0.68. Blood sugar 192. Troponin negative. EKG sinus rhythm with no acute ST changes. CAT scan of the brain revealed no acute findings. Consult in place with vascular surgery with plans for carotid endarterectomy during this hospitalization, consult with cardiology for surgical clearance. 12/17: Patient is seen today on the cardiac stepdown unit. Patient has been seen by cardiology and cleared for carotid endarterectomy knowing that he is at intermediate risk for perioperative complications. Patient was seen by speech therapy and recommended nothing by mouth patient unable to pass a bedside swallow evaluation by speech. Patient is not safe to undergo modified barium swallow at this time. We will plan to place NG tube for patient to get his medications. Patient is also been seen by PT OT. He continues to have difficulty weakness on the left side along with expressive aphasia. Patient has been afebrile, heart rate 91, blood pressure 148/70, pulse ox 90% on room air. Blood sugars are running between 139-180. Neurology has discontinued Plavix is thought to have failed treatment and started Brilinta along with aspirin 81 mg daily, Lipitor 81 mg daily plan for permissive hypertension for the next 24 hours. Carotid ultrasound revealed less than 50% stenosis of the right carotid bifurcation, 50-69% stenosis on the left. 12/18: Patient did have an NG tube placement yesterday because the patient is not able to swallow anything at this point in time, due to his acute ischemic stroke in the right brainstem unless to the left breast and, with an old right occipital stroke, patient will be maintained on Brilinta 90 mg orally twice every day. Aspirin 81 mg once every day, and maximum dose of statin, neurology as well as vascular surgeon is following, patient will require intervention of his significant carotid artery stenosis, patient also is very noncompliant with medications treatment and follow-ups, we will continue to monitor the patient very closely, his daughters were at the bedside and updated about his current condition his prognosis overall is very guarded. 12/19: Patient was moved into the intensive care unit for better monitoring due to his bilateral brainstem stroke right more than left and prior history of right occipital infarct, currently on Brilinta 90 mg twice every day, baby aspirin 81 mg once every day, atorvastatin 80 mg once every day, Zetia 10 mg every day, neurology swallowing, continue tube feeding, continue NG tube, aspiration precautions, discussed with his daughter and his ode status and they decided on NO CODE for now and they will discuss with vascular the options of surgical intervention and the risks vs benefits at this stage of his illness REVIEW OF SYSTEMS Constitutional: No fever, no chills, no night sweats. No weight change. Reports left weakness. No daytime sleepiness. HEENT: Reports no headache. No blurred vision or double vision, no loss of vision. No loss of Hearing, no ringing in the ears, no dizziness. No nasal drainage or congestion. No epistaxis. No sore throat. Lungs: No shortness of breath, cough, no sputum production. No wheezing. Cardiovascular: No chest pain, no lower extremity edema. No palpitations. No paroxysmal nocturnal dyspnea. No orthopnea. No lightheadedness or dizziness. No syncopal episodes. Abdominal: No abdominal pain. No nausea, vomiting. No diarrhea. No constipation. No bloody or tarry stools. No loss of appetite. Genitourinary: No dysuria, increased frequency, urgency. No urinary retention. Musculoskeletal: No myalgias. Noted muscle weakness left side, noted gait dysfunction, no frequent falls. Chronic back pain, Integumentary: No wounds, no lesions. No rash or pruritus. No unusual bruising. No change in hair or nails. Neurologic: Reports slurred speech and weakness. Noted facial droop. Noted change in mentation. No head injury. Psychiatric: positive for depression. No anxiety. No mood swings. Endocrine: No abnormal blood sugars. No weight change. No excessive sweating or thirst. No cold intolerance. PHYSICAL EXAMINATION Gen: This is a 63-year-old male. He is sitting up in bed and appears to be comfortable and in no acute distress. Family members at bedside. HEENT: Head is atraumatic, normocephalic. Pupils equal, round. Sclerae is anicteric. Cortisone place to the right internal jugular. NECK: Supple. No JVD. No lymphadenopathy. No thyromegaly. LUNGS: Diminished bilaterally but otherwise clear to auscultation. No wheezes or rhonchi. No intercostal retractions. HEART: Regular rate and rhythm. 2/6 systolic ejection murmur. ABDOMEN: Soft. Bowel sounds are present. No masses. No tenderness. Acosta catheter draining clear lois urine. EXTREMITIES: No pedal edema. No calf tenderness. NEUROLOGICAL: Patient is awake, alert, weakness on the left, aphasia. ASSESSMENT AND PLAN 1. Acute ischemic CVA in the right brain stem and to a lesser degree in the left brain stem. we will continue with ASA 81 mg per NGT , Brilinta 90 mg NGT bid and Atorvastatin 80 mg , Zetia 10 mg and we will need Carotid intervention , vascular is following. 2. Acute ischemic stroke with left hemiparesis . and currently with slurred speech and not able to swallow at this time, NGT is in since there is no one can put Dobb-Alegre . 3. Bilateral internal carotid artery stenosis. Consult appreciated with vascular surgery with plan for carotid endarterectomy during this hospitaliz ation 4. Dysphagia. NG tube placed for patient to receive medications and also nutrition until modified barium swallow can be done most likely next week. 5. Coronary artery disease status post 3 vessel CABG details above as well as previous stenting of circumflex. Continue patient on aspirin, Lipitor and zetia 6. Hypertension and hypertensive cardiovascular disease. Continue patient on A ldactone 25 mg daily, Lopressor 100 mg twice daily, we will continue to monitor BP very closely. 7. Hyperlipidemia. Continue Lipitor 80 mg daily, Zetia 10 mg daily. 8. Mild COPD, stable without exacerbation 9. Diabetes mellitus type 2. Continue patient on Levemir 15 units daily, Farxiga 5 mg daily, Tradjenta 5 mg daily, NovoLog insulin scale before meals and at bedtime. 10. Moderate aortic stenosis. Cardiology is following 11. GI prophylaxis. Protonix 40 mg daily. 12. DVT prophylaxis. Heparin 5000 units SC q12 hours. 13. Prognosis is very guarded. 14. he will require ECF post hospitalization 15. NO CODE status discussed with patient's and his daughter at the bedside Objective - Vital Signs Vital signs: Vital Signs Temp 98.2 F 12/19/22 08:00 Pulse 89 12/19/22 10:00 Resp 24 12/19/22 10:00 BP 151/72 12/19/22 10:00 Pulse Ox 92 L 12/19/22 10:00 FiO2 Intake & Output 12/18/22 12/19/22 12/19/22 18:59 06:59 18:59 Intake Total 225 1495 350 Output Total 700 700 500 Balance -475 795 -150 Weight 78.2 kg Intake: IV 150 825 300 Sodium Chloride 0.9% 1, 150 825 300 000 ml @ 75 mls/hr IV . [id number] [facility] Rx#:[id number] Intake, IV Titration 75 Amount Sodium Chloride 0.9% 1, 75 000 ml @ 75 mls/hr IV . [id number] [facility] Rx#:[id number] Tube Feeding 520 50 Other 150 Output: Urine 700 700 500 Other: Voiding Method External Catheter External Catheter External Catheter # Voids 1 - Labs CBC & Chem 7: 12/19/22 03:29 12/19/22 03:29 Labs: Abnormal Lab Results - Last 24 Hours (Table) 12/18/22 12/18/22 12/18/22 Range/Units 11:11 11:11 11:36 Hgb 17.8 H (13.0-17.5) gm/dL Hct 53.8 H (39.0-53.0) % Sodium (137-145) mmol/L Chloride 108 H (98-107) mmol/L Carbon Dioxide 16 L (22-30) mmol/L Creatinine 0.63 L (0.66-1.25) mg/dL Glucose 123 H (74-99) mg/dL POC Glucose (mg/dL) 119 H (70-110) mg/dL Albumin (3.5-5.0) g/dL 12/18/22 12/19/22 Range/Units 23:45 03:29 Hgb (13.0-17.5) gm/dL Hct (39.0-53.0) % Sodium 136 L (137-145) mmol/L Chloride (98-107) mmol/L Carbon Dioxide 15 L (22-30) mmol/L Creatinine 0.57 L (0.66-1.25) mg/dL Glucose 112 H (74-99) mg/dL POC Glucose (mg/dL) 120 H (70-110) mg/dL Albumin 3.4 L (3.5-5.0) g/dL
[2022-12-19 11:55] LABS: Glucose,Whole Blood 168 mg/dL (70-110)
--- NOTE | 2022-12-19 12:40 | P.PN ---
Subjective Progress Note Date: 12/19/22 Patient seen and examined today. Was transferreed to ICU for higher level nursing care, Still with left-sided weakness and speech affected. Essentially unchanged from previous. Has NG tube in for tube feeds as he failed his swallow study. Remains on Brilinta. MRI of the brain showed further brainstem deficit.CODE STATUS and overall prognosis. Patient currently a NO CODE Objective - Vital Signs Vital signs: Vital Signs Temp 98.2 F 12/19/22 08:00 Pulse 95 12/19/22 11:00 Resp 26 H 12/19/22 11:00 BP 134/83 12/19/22 11:00 Pulse Ox 93 L 12/19/22 11:00 FiO2 Intake & Output 12/18/22 12/19/22 12/19/22 18:59 06:59 18:59 Intake Total 225 1495 425 Output Total 700 700 500 Balance -475 795 -75 Weight 78.2 kg Intake: IV 150 825 375 Sodium Chloride 0.9% 1, 150 825 375 000 ml @ 75 mls/hr IV . [id number] [facility] Rx#:[id number] Intake, IV Titration 75 Amount Sodium Chloride 0.9% 1, 75 000 ml @ 75 mls/hr IV . [id number] [facility] Rx#:[id number] Tube Feeding 520 50 Other 150 Output: Urine 700 700 500 Other: Voiding Method External Catheter External Catheter External Catheter # Voids 1 - Exam General appearance: The patient is alert, oriented, appears in no acute distress. HET: Head is normocephalic and atraumatic. Neck: Supple without lymphadenopathy. Trachea midline. Heart: Regular. Lungs: Equal expansion, normal respiratory effort. Abdomen: Soft, nontender, umbilical hernia, soft, nondistended. Extremities: Normal skin color and turgor. Bilateral palpable radial pulses. Neurological: Patient with slurred speech, left upper and lower extremity weakness. Patient has left facial droop. - Labs CBC & Chem 7: 12/19/22 03:29 12/19/22 03:29 Labs: Abnormal Lab Results - Last 24 Hours (Table) 12/18/22 12/19/22 12/19/22 Range/Units 23:45 03:29 11:53 Sodium 136 L (137-145) mmol/L Carbon Dioxide 15 L (22-30) mmol/L Creatinine 0.57 L (0.66-1.25) mg/dL Glucose 112 H (74-99) mg/dL POC Glucose (mg/dL) 120 H 168 H (70-110) mg/dL Albumin 3.4 L (3.5-5.0) g/dL Assessment and Plan Plan: 1. Acute ischemic stroke with left-sided weakness and slurred speech 2. Severe bilateral internal carotid artery stenosis, symptomatic on the right. 3. Diabetes mellitus 4. Coronary artery disease status post CABG and stent 5. Hypertension 6. Hyperlipidemia 7. Former smoker. Plan: OR not available Tuesday as hoped, currently scheduled for . Awaiting further decisions in conversations his family regarding overall plan, I agree that he has a poor prognosis given the amount of areas of ischemic changes clinical residuals. He has e/o brainstem infarcts also. Discussed that surgical intervention would help from further stroke risk in the distribution of the carotid artery but not otherwise, and not reverse any damage previously done. Will continue to monitor and discuss best option
[2022-12-19] MEDS: FLUCONAZOLE ORAL SUSP 1,400 MG/35 ML BOTTLE PO SCH (15:53)
[2022-12-19] MEDS: ACETAMINOPHEN TAB 325 MG TAB PO PRN ×2 (17:18→23:02)
[2022-12-19 18:16] LABS: Glucose,Whole Blood 140 mg/dL (70-110)
[2022-12-19] MEDS: INSULIN DETEMIR (LEVEMIR) 100 UNIT/ML SYR SQ SCH (21:19)
[2022-12-19] MEDS: ATORVASTATIN 80 MG TAB PO SCH (21:19)
[2022-12-19] MEDS: MORPHINE SULFATE 2 MG/ML SYRINGE IVP PRN (23:01)
[2022-12-19 23:19] LABS: Glucose,Whole Blood 165 mg/dL (70-110)
[2022-12-20] MEDS: MORPHINE SULFATE 2 MG/ML SYRINGE IVP PRN ×2 (05:03→19:15)
[2022-12-20 05:32] LABS: Basophils # (A) 0.1 k/uL (0-0.2); Basophils % (A) 1 %; Eosinophils # (A) 0.3 k/uL (0-0.7); Eosinophils % (A) 3 %; HCT 48.8 % (39.0-53.0); HGB 16.5 gm/dL (13.0-17.5); Lymphocytes # (A) 1.4 k/uL (1.0-4.8); Lymphocytes % (A) 14 %; MCHC 33.8 g/dL (31.0-37.0); MCV 94.7 fL (80.0-100.0); Mean Platelet Volume 10.2; Monocytes # (A) 0.6 k/uL (0-1.0); Monocytes % (A) 6 %; Neutrophils # (A) 7.8 k/uL (1.3-7.7); Neutrophils % (A) 75 %; Platelet Count 189 k/uL (150-450); RBC 5.15 m/uL (4.30-5.90); RDW 14.3 % (11.5-15.5); WBC 10.3 k/uL (3.8-10.6)
[2022-12-20 05:42] LABS: African American GFR (CKD) >90 (>60 ml/min/1.73 sqM); Anion Gap 15 mmol/L; Blood Urea Nitrogen 14 mg/dL (9-20); Calcium 8.5 mg/dL (8.4-10.2); Carbon Dioxide 15 mmol/L (22-30); Chloride 106 mmol/L (98-107); Glucose 144 mg/dL (74-99); Non-African American GFR(CKD) >90 (>60 ml/min/1.73 sqM); Sodium 136 mmol/L (137-145)
[2022-12-20 06:13] LABS: Glucose,Whole Blood 155 mg/dL (70-110)
[2022-12-20] MEDS: INSULIN ASPART (NovoLOG) 100 UNIT/ML VIAL SQ SCH ×4 (06:29→17:15)
[2022-12-20] MEDS: SODIUM CHLORIDE 0.9% 1,000 ML IV SCH (06:29)
--- NOTE | 2022-12-20 06:49 | XR ---
EXAMINATION TYPE: XR chest 1V portable DATE OF EXAM: 12/20/2022 CLINICAL HISTORY: Difficulty breathing progress study. TECHNIQUE: Single AP portable upright view of the chest is obtained. COMPARISON: Chest x-ray from one day earlier and older studies. FINDINGS: Stable orogastric tube. Overlying sternal wires and mediastinal clips are redemonstrated. Patchy left basilar opacity. Right lung is clear. Cardiac silhouette size stable and within normal limits. Osseous structures are intact . IMPRESSION: Patchy left basilar atelectasis and/or limited acute infiltrate. No significant change fr om one day earlier.
[2022-12-20] MEDS: METOPROLOL TARTRATE 50 MG TAB PO SCH ×2 (08:56→20:36)
[2022-12-20] MEDS: ASPIRIN 81 MG PO SCH (08:59)
[2022-12-20] MEDS: HEPARIN SODIUM,PORCINE/PF 5,000 UNIT/0.5 ML SYRINGE SQ SCH ×2 (08:59→20:36)
[2022-12-20] MEDS: SPIRONOLACTONE 25 MG TAB PO SCH (08:59)
[2022-12-20] MEDS: TICAGRELOR 90 MG TAB PO SCH ×2 (09:00→20:36)
[2022-12-20] MEDS: DAPAGLIFLOZIN PROPANEDIOL 5 MG TABLET PO SCH (09:00)
[2022-12-20] MEDS: EZETIMIBE 10 MG TAB PO SCH (09:00)
[2022-12-20] MEDS: Icosapent Ethyl [Icosapent Ethyl] 1 GM Capsule PO SCH ×2 (09:00→20:37)
[2022-12-20] MEDS: PANTOPRAZOLE 40 MG TABLET PO SCH (09:00)
[2022-12-20] MEDS: LINAGLIPTIN 5 MG TABLET PO SCH (09:00)
[2022-12-20] MEDS: ACETAMINOPHEN TAB 325 MG TAB PO PRN ×2 (09:01→17:19)
--- NOTE | 2022-12-20 09:26 | P.PN ---
Progress Note - Text Progress Note Date: 12/20/22 Patient remains in the ICU. He states he feels about the same. He is currently receiving tube feeds via N NG tube. On exam abdomen soft nontender Protein calorie malnutrition secondary dysphagia. We will remain on standby for PEG tube placement.
--- NOTE | 2022-12-20 11:20 | P.PN ---
Subjective Progress Note Date: 12/20/22 This is a 67-year-old male gentleman seen today in consultation in the intensive care unit. He has a history of chronic and ongoing tobacco dependence, hyperlipidemia, hypertension, diabetes mellitus, type II, coronary disease with previous coronary bypass grafting and stent placement. Recent admission in October 2022 for an acute ischemic stroke with left hemiparesis. MARISELA revealed no cardiac source for CVA. CT angiogram revealed a right internal carotid artery stenosis of 80-85% and a left internal carotid artery stenosis of 85%. He was to follow with vascular surgery in the outpatient setting. Unfortunately he presented back here to the hospital on 12/16/2022 with a one-day history of increasing weakness slurred speech and left-sided weakness. MRI of the brain revealed acute ischemic changes interval finding within the right brainstem and to a lesser degree left brain stem. Residual signal abnormality in the right occipital lobe considered to be the old ischemic change. Angiography revealed calcified and noncalcified plaque at the carotid bifurcations with at least 70% stenosis on the right and 90% stenosis on the left. No evidence of dissection. No evidence of intracranial high-grade stenosis or intracranial aneurysm. He was transferred to the intensive care unit for closer monitoring throughout the night. He is seen today in consultation in the ICU. He is currently sitting up in bed. He is quite aphasic. Congested. Nasogastric tube is in place. He is being nourished with Glucerna at 60 ML's per hour. He has 0.9 normal saline at 75 ML's per hour. He is currently maintaining good O2 saturations in the 90s on room air. Aspiration precautions. His left side is still quite weak able to raise his left arm but his hand is weak. Not able to raise his left leg. White count 9.3. He was 16.9. Platelets 199. Sodium 136. Potassium 3.7. Bicarb 15. BUN 11. Creatinine 0.57. Glucose 112. He is continued on aspirin and Brilinta. Heparin for DVT prophylaxis. The patient is seen today 12/20/2022 in follow-up in the intensive care unit. He is currently sitting up in bed. Awake, alert. Maintaining O2 saturations in the 90s on 3 L/m per nasal cannula. He's been afebrile. Hemodynamically stable. Chest x-ray reveals patchy left basilar atelectasis. White count 10.3. Hemoglobin 16.5. Platelets 189. Sodium 136. Potassium 4.0. Bicarb 15. BUN 14. Creatinine 0.62. Glucose 144. Remains a phasic. Remains with left-sided weakness. Nasogastric tube in place receiving Glucerna 1.2 at a rate of 60 ML's per hour. Receiving free water flushes. Objective - Vital Signs Vital signs: Vital Signs Temp 97.9 F 12/20/22 08:00 Pulse 96 12/20/22 10:00 Resp 25 H 12/20/22 10:00 BP 137/74 12/20/22 10:00 Pulse Ox 93 L 12/20/22 10:00 FiO2 Intake & Output 12/19/22 12/20/22 12/20/22 18:59 06:59 18:59 Intake Total 1125 1685 310 Output Total 950 900 400 Balance 175 785 -90 Weight 78.2 kg 76.6 kg Intake: IV 975 825 310 Invasive Line 3 10 Sodium Chloride 0.9% 1, 975 825 300 000 ml @ 75 mls/hr IV . [id number] [facility] Rx#:[id number] Tube Feeding 150 710 Other 150 Output: Urine 950 900 400 Other: Voiding Method External Catheter External Catheter External Catheter # Voids 1 # Bowel Movements 2 - Exam GENERAL EXAM: Alert, aphasic 67-year-old male, on room air, fairly comfortable in no apparent distress. HEAD: Normocephalic. EYES: Normal reaction of pupils, equal size. NOSE: Nasogastric tube secured in place. Clear with pink turbinates. THROAT: No erythema or exudates. NECK: No masses, no JVD. CHEST: No chest wall deformity. LUNGS: Equal air entry with bilateral scattered rhonchi. CVS: S1 and S2 normal with no audible murmur, regular rhythm. ABDOMEN: No hepatosplenomegaly, normal bowel sounds, no guarding or rigidity. SPINE: No scoliosis or deformity SKIN: No rashes CENTRAL NERVOUS SYSTEM: Aphasic, tone is normal in all 4 extremities. EXTREMITIES: Left upper and lower extremity weakness. There is no peripheral edema. Peripheral pulses are intact. - Labs CBC & Chem 7: 12/20/22 04:14 12/20/22 04:14 Labs: Abnormal Lab Results - Last 24 Hours (Table) 12/19/22 12/19/22 12/19/22 Range/Units 11:53 18:14 23:17 Neutrophils # (1.3-7.7) k/uL Sodium (137-145) mmol/L Carbon Dioxide (22-30) mmol/L Creatinine (0.66-1.25) mg/dL Glucose (74-99) mg/dL POC Glucose (mg/dL) 168 H 140 H 165 H (70-110) mg/dL 12/20/22 12/20/22 12/20/22 Range/Units 04:14 04:14 06:12 Neutrophils # 7.8 H (1.3-7.7) k/uL Sodium 136 L (137-145) mmol/L Carbon Dioxide 15 L (22-30) mmol/L Creatinine 0.62 L (0.66-1.25) mg/dL Glucose 144 H (74-99) mg/dL POC Glucose (mg/dL) 155 H (70-110) mg/dL Assessment and Plan Assessment: Acute ischemic stroke involving the bilateral brainstem over pontine region right greater than left and a small focus over the right temporal region. Suspect embolic in nature. Failed Plavix. Currently on Brilinta, atorvastatin and aspirin Recent stroke in October 2022 in the right occipital region with left-sided weakness, slurred speech and facial droop, mainly resolved Bilateral carotid stenosis and calcified plaque at the carotid bifurcations with at least 70% stenosis on the right and 90% stenosis on the left History of coronary artery disease with previous stent placement and coronary artery bypass grafting Hypertension Hyperlipidemia Diabetes mellitus Chronic and ongoing tobacco dependence Hearing disorder Plan: The patient was seen and evaluated Chest x-ray, medications and labs reviewed Continued on statins, Brilinta, aspirin Continued on aspiration precautions NG tube in place, continue tube feedings Currently stable and on room air We will continue to follow I have personally seen and examined the patient, performed the documentation and the assessment and plan as written. Number of minutes spent on the visit: 10.
[2022-12-20 11:48] LABS: Glucose,Whole Blood 150 mg/dL (70-110)
--- NOTE | 2022-12-20 11:54 | P.PN ---
Subjective Progress Note Date: 12/20/22 HISTORY OF PRESENT ILLNESS This is a 67-year-old male with past medical history of diabetes mellitus type 2, hypertension, hyperlipidemia, history of CA in 2010 status post stent of the circumflex, known to have triple-vessel coronary artery disease with totally occluded collateralized right coronary artery, status post coronary artery bypass grafting using the left internal mammary artery to the left anterior descending artery, left radial artery from the aorta to the obtuse marginal artery, reverse saphenous vein graft from the aorta to the posterior descending artery, overall preserved left ventricular function, mild aortic stenosis, mild COPD with preoperative FEV1 63% of predicted, obesity, umbilical and epigastric hernia. Patient presented to the hospital due to increasing weakness and sl urred speech with history of a stroke a month ago that affected his speech and the left side of his body and was discharged on 11/08. During the hospitalization, Echocardiogram revealed EF of 55-60%, mild LVH, moderate mitral annular calcification, trace mitral regurgitation, moderate aortic stenosis, mild tricuspid regurgitation. Patient underwent MARISELA with Dr. Mckeon which revealed no cardiac source for CVA. Mild mitral and tricuspid regurgitation. Moderate aortic stenosis with mean gradient of 23 mmHg. Patient was evaluated by therapies with recommendations for home. Cardiology planned for outpatient stress testing with Dr. Mckeon and patient was to follow-up with vascular surgery regarding bilateral carotid stenosis. Patient really has had completely cover of his left-sided weakness and slurred speech. Family noticed that patient was having some difficulty with balance and walking and he started complaining of a headache and pressure behind his eye and not feeling well in general. He also was noted have incontinence and did not realize he was incontinent. Then he developed significant weakness on the left side and slurred speech and difficulty swallowing and presented to [facility] for further evaluation. Patient presents to the hospital with increased weakness and slurred speech that had progressed over the last 48 hours along with difficulty ambulating. Initial blood pressure was 109/89. WBC 11.6, hemoglobin 16.4, platelet count 218. Electrolytes are normal, creatinine 0.68. Blood sugar 192. Troponin negative. EKG sinus rhythm with no acute ST changes. CAT scan of the brain revealed no acute findings. Consult in place with vascular surgery with plans for carotid endarterectomy during this hospitalization, consult with cardiology for surgical clearance. 12/17: Patient is seen today on the cardiac stepdown unit. Patient has been seen by cardiology and cleared for carotid endarterectomy knowing that he is at intermediate risk for perioperative complications. Patient was seen by speech therapy and recommended nothing by mouth patient unable to pass a bedside swallow evaluation by speech. Patient is not safe to undergo modified barium swallow at this time. We will plan to place NG tube for patient to get his medications. Patient is also been seen by PT OT. He continues to have difficulty weakness on the left side along with expressive aphasia. Patient has been afebrile, heart rate 91, blood pressure 148/70, pulse ox 90% on room air. Blood sugars are running between 139-180. Neurology has discontinued Plavix is thought to have failed treatment and started Brilinta along with aspirin 81 mg daily, Lipitor 81 mg daily plan for permissive hypertension for the next 24 hours. Carotid ultrasound revealed less than 50% stenosis of the right carotid bifurcation, 50-69% stenosis on the left. 12/18: Patient did have an NG tube placement yesterday because the patient is not able to swallow anything at this point in time, due to his acute ischemic stroke in the right brainstem unless to the left breast and, with an old right occipital stroke, patient will be maintained on Brilinta 90 mg orally twice every day. Aspirin 81 mg once every day, and maximum dose of statin, neurology as well as vascular surgeon is following, patient will require intervention of his significant carotid artery stenosis, patient also is very noncompliant with medications treatment and follow-ups, we will continue to monitor the patient very closely, his daughters were at the bedside and updated about his current condition his prognosis overall is very guarded. 12/19: Patient was moved into the intensive care unit for better monitoring due to his bilateral brainstem stroke right more than left and prior history of right occipital infarct, currently on Brilinta 90 mg twice every day, baby aspirin 81 mg once every day, atorvastatin 80 mg once every day, Zetia 10 mg every day, neurology swallowing, continue tube feeding, continue NG tube, aspiration precautions, discussed with his daughter and his ode status and they decided on NO CODE for now and they will discuss with vascular the options of surgical intervention and the risks vs benefits at this stage of his illness 12/20: Patient is about the same is laying down in bed he appears to be weaker today, he continues to have some coughing, he is not able to handle his secretions, currently has an NG tube in place, he is doing his own suctioning of his oral secretions, he has bee on tube feeding, we will continue to monitor the patient very closely, according to the family the patient is very depressed we will start the patient on Lexapro 5 mg per NG tube once every day.n REVIEW OF SYSTEMS Constitutional: No fever, no chills, no night sweats. No weight change. Reports left weakness. No daytime sleepiness. HEENT: Reports no headache. No blurred vision or double vision, no loss of vision. No loss of Hearing, no ringing in the ears, no dizziness. No nasal drainage or congestion. No epistaxis. No sore throat. Lungs: No shortness of breath, cough, no sputum production. No wheezing. Cardiovascular: No chest pain, no lower extremity edema. No palpitations. No paroxysmal nocturnal dyspnea. No orthopnea. No lightheadedness or dizziness. No syncopal episodes. Abdominal: No abdominal pain. No nausea, vomiting. No diarrhea. No constipation. No bloody or tarry stools. No loss of appetite. Genitourinary: No dysuria, increased frequency, urgency. No urinary retention. Musculoskeletal: No myalgias. Noted muscle weakness left side, noted gait dysfunction, no frequent falls. Chronic back pain, Integumentary: No wounds, no lesions. No rash or pruritus. No unusual bruising. No change in hair or nails. Neurologic: Reports slurred speech and weakness. Noted facial droop. Noted change in mentation. No head injury. Psychiatric: positive for depression. No anxiety. No mood swings. Endocrine: No abnormal blood sugars. No weight change. No excessive sweating or thirst. No cold intolerance. PHYSICAL EXAMINATION Gen: This is a 63-year-old male. He is sitting up in bed and appears to be comfortable and in no acute distress. Family members at bedside. HEENT: Head is atraumatic, normocephalic. Pupils equal, round. Sclerae is anicteric. Cortisone place to the right internal jugular. NECK: Supple. No JVD. No lymphadenopathy. No thyromegaly. LUNGS: Diminished bilaterally but otherwise clear to auscultation. No wheezes or rhonchi. No intercostal retractions. HEART: Regular rate and rhythm. 2/6 systolic ejection murmur. ABDOMEN: Soft. Bowel sounds are present. No masses. No tenderness. Acosta catheter draining clear lois urine. EXTREMITIES: No pedal edema. No calf tenderness. NEUROLOGICAL: Patient is awake, alert, weakness on the left, aphasia. ASSESSMENT AND PLAN 1. Acute ischemic CVA in the right brain stem and to a lesser degree in the left brain stem. we will continue with ASA 81 mg per NGT , Brilinta 90 mg NGT bid and Atorvastatin 80 mg , Zetia 10 mg and we will need Carotid intervention , vascular is following. 2. Acute ischemic stroke with left hemiparesis . and currently with slurred speech and not able to swallow at this time, NGT is in since there is no one can put Dobb-Alegre . 3. Bilateral internal carotid artery stenosis. Consult appreciated with vascular surgery with plan for carotid endarterectomy during this hospitalization 4. Dysphagia. NG tube placed for patient to receive medications and also nutrition until modified barium swallow can be done most likely next week. 5. Coronary artery disease status post 3 vessel CABG details above as well as previous stenting of circumflex. Continue patient on aspirin, Lipitor and zetia 6. Hypertension and hypertensive cardiovascular disease. Continue patient on Aldactone 25 mg daily, Lopressor 100 mg twice daily, we will continue to monitor BP very closely. 7. Hyperlipidemia. Continue Lipitor 80 mg daily, Zetia 10 mg daily. 8. Mild COPD, stable without exacerbation 9. Diabetes mellitus type 2. Continue patient on Levemir 15 units daily, Farxiga 5 mg daily, Tradjenta 5 mg daily, NovoLog insulin scale before meals and at bedtime. 10. Moderate aortic stenosis. Cardiology is following 11. GI prophylaxis. Protonix 40 mg daily. 12. DVT prophylaxis. Heparin 5000 units SC q12 hours. 13. Prognosis is very guarded. 14. he will require ECF post hospitalization 15. NO CODE status discussed with patient's and his daughter at the bedside 16. Depression. Start the patient on Lexapro 5 mg per NG tube once every day. Objective - Vital Signs Vital signs: Vital Signs Temp 97.8 F 12/20/22 04:00 Pulse 93 12/20/22 05:00 Resp 22 12/20/22 06:00 BP 140/78 12/20/22 06:00 Pulse Ox 96 12/20/22 06:00 FiO2 Intake & Output 12/19/22 12/20/22 12/20/22 18:59 06:59 18:59 Intake Total 1125 1685 Output Total 950 900 Balance 175 785 Weight 78.2 kg 76.6 kg Intake: IV 975 825 Sodium Chloride 0.9% 1, 975 825 000 ml @ 75 mls/hr IV . [id number] [facility] Rx#:[id number] Tube Feeding 150 710 Other 150 Output: Urine 950 900 Other: Voiding Method External Catheter External Catheter # Voids 1 # Bowel Movements 2 - Labs CBC & Chem 7: 12/20/22 04:14 12/20/22 04:14 Labs: Abnormal Lab Results - Last 24 Hours (Table) 12/19/22 12/19/22 12/19/22 Range/Units 11:53 18:14 23:17 Neutrophils # (1.3-7.7) k/uL Sodium (137-145) mmol/L Carbon Dioxide (22-30) mmol/L Creatinine (0.66-1.25) mg/dL Glucose (74-99) mg/dL POC Glucose (mg/dL) 168 H 140 H 165 H (70-110) mg/dL 12/20/22 12/20/22 12/20/22 Range/Units 04:14 04:14 06:12 Neutrophils # 7.8 H (1.3-7.7) k/uL Sodium 136 L (137-145) mmol/L Carbon Dioxide 15 L (22-30) mmol/L Creatinine 0.62 L (0.66-1.25) mg/dL Glucose 144 H (74-99) mg/dL POC Glucose (mg/dL) 155 H (70-110) mg/dL
[2022-12-20] MEDS: FLUCONAZOLE ORAL SUSP 1,400 MG/35 ML BOTTLE PO SCH (14:27)
[2022-12-20] MEDS: INSULIN DETEMIR (LEVEMIR) 100 UNIT/ML SYR SQ SCH ×2 (16:59→20:37)
[2022-12-20 17:14] LABS: Glucose,Whole Blood 142 mg/dL (70-110)
--- NOTE | 2022-12-20 17:48 | P.PN ---
Subjective Progress Note Date: 12/20/22 Patient was initially seen by Dr. Jayce Coffey. Please refer to his note for details. Patient is a 67-year-old right-handed male with left-sided weakness, facial droop and dysarthria. Has bilateral pontine stroke. Patient has significant bilateral carotid stenosis. Patient was here about 5 weeks ago for left-sided weakness resolved. Patient was scheduled for a follow-up visit with vascular surgery tomorrow on 12/21/2022 to schedule for outpatient CEA, but he presented with an acute stroke with left hemiparesis. Carotid to be addressed during this admission. Patient's daughter was present, who believes that patient is no better as compared to yesterday. Continues to be left hemiplegic. The right side is doing well. He has severe dysarthria. Patient is not able to take by mouth, has NG tube in place. Some other workup during this hospital visit consisted of: Hemoglobin A1c is 10.0 Lipid panel is TG 376, cholesterol 190, LDL 77 and HDL is 37. CT of the head is reported as no acute finding in the head/brain. Personally reviewed the CT of the head and there is no acute or subacute ischemia. Carotid duplex was reported as less than 50% stenosis on the right carotid bifurcation. 50-60% stenosis on the left carotid bifurcation. MRI Brain is reported as acute is ischemic changes, an interval finding within brainstem right > left. Residual right occipital lobe can be related to the old ischemic change. Chronic appearing deep white matter changes. I personally reviewed the MRI and I agree with the report. The involvement of brain stem involves bilateral pontine region, right much worse than left. There is also a small focus of subacute ischemia involving the right temporal lesion. CT angiography of the head and neck was reported as calcified non-calcified plaque at the carotid bifurcation at least 70% stenosis on the right 90% stenosis on the left. No evidence for dissection of the cervical internal carotid artery or vertebral artery. No evidence of intracranial high-grade stenosis or intracranial aneurysm. Mild pulmonary vascular congestion with cardiomegaly correlate for congestive heart failure. Objective - Vital Signs Vital signs: Vital Signs Temp 97.9 F 12/20/22 12:00 Pulse 85 12/20/22 14:00 Resp 20 12/20/22 14:00 BP 138/70 12/20/22 14:00 Pulse Ox 96 12/20/22 14:00 FiO2 Intake & Output 12/19/22 12/20/22 12/20/22 18:59 06:59 18:59 Intake Total 1125 1685 680 Output Total 950 900 900 Balance 175 785 -220 Weight 78.2 kg 76.6 kg Intake: IV 975 825 620 Invasive Line 3 20 Sodium Chloride 0.9% 1, 975 825 600 000 ml @ 75 mls/hr IV . [id number] [facility] Rx#:[id number] Tube Feeding 150 710 60 Other 150 Output: Urine 950 900 900 Other: Voiding Method External Catheter External Catheter External Catheter # Voids 1 # Bowel Movements 2 - Exam Patient is alert and awake, in no distress. He has NG tube in place. He has a suction catheter that he is holding with his right hand, and using it for oral secretions. Patient has left facial asymmetry. Patient has moderate dysarthria. He is able to name objects well, and also repeat. Patient is flaccid in the left arm and leg, with some twitch in the left hand fingers, and some wiggling of the toes of the left foot. No movement proximally. The strength is normal on the right side. - Labs CBC & Chem 7: 12/21/22 05:41 12/21/22 05:41 Labs: Abnormal Lab Results - Last 24 Hours (Table) 12/19/22 12/19/22 12/20/22 Range/Units 18:14 23:17 04:14 Neutrophils # 7.8 H (1.3-7.7) k/uL Sodium (137-145) mmol/L Carbon Dioxide (22-30) mmol/L Creatinine (0.66-1.25) mg/dL Glucose (74-99) mg/dL POC Glucose (mg/dL) 140 H 165 H (70-110) mg/dL 12/20/22 12/20/22 12/20/22 Range/Units 04:14 06:12 11:47 Neutrophils # (1.3-7.7) k/uL Sodium 136 L (137-145) mmol/L Carbon Dioxide 15 L (22-30) mmol/L Creatinine 0.62 L (0.66-1.25) mg/dL Glucose 144 H (74-99) mg/dL POC Glucose (mg/dL) 155 H 150 H (70-110) mg/dL Assessment and Plan Assessment: This is a 67-year-old gentleman who presented that because of left-sided weakness and numbness with dysarthria. Patient stated that his symptoms began on 12/15/2022 in the afternoon for the ED was accompanied with his daughter and is seems his symptoms has been progressive for the last 48 hours prior to presenting to the hospital. Acute ischemic stroke (bilateral pontine region and right > left) and felt small focus over the right temporal region. Etiology seems embolic in nature. Has severe bilateral carotid stenosis on most recent CTA in 11/14 and on 12/18/2022 in which has right ICA 70% while left is 90% stenosis. Rule out any cardioembolic. Dysphagia due to above Significant left hemiparesis due to above. Recent stroke in the second week of October 2022 in which he had the right occipital and was also felt likely due to symptomatic right ICA stenosis. At that time also patient had the left-sided weakness with facial droop and slurred speech and his symptoms resolved. Patient also had the MRI which also reported acute to subacute left hernandez radiata but was felt likely T2 shine through and not acute or subacute stroke. Vascular team asked for him to follow-up as outpatient. Significant bilateral carotid stenosis. There is discordinant between CTA and carotid on both time (in 11/14/ and on 12/18/22 which is worse on CTA and not significant on carotid duplex. Recent CTA reveals right ICA 70% while left is 90%). Dyslipidemia Diabetes mellitus Hypertension Hard of hearing History of coronary artery disease status post stent as well as CABG Tobacco use Plan: During this admission, Plavix was discontinued since the patient failed the medication. Dr. Coffey has started the patient on Brilinta 90mg bid and decreased ASA from 325mg to 81mg daily. Continue Lipitor 80 mg daily at bedtime for secondary stroke prophylaxis. Vascular surgery team consulted for his symptomatic right ICA stenosis and recommend to be addressed during this admission then after that recommend left ICA to be addressed. He had similar presentation just a bit more than a month ago and was told to have carotid addressed as outpatient. Recommend blood pressure to be within 140-180's. Recommend optimize control of diabetes to target A1c < 7.0, currently 10.0 Patient had a MARISELA performed 11/08/2022, which revealed no embolic source identified. Normal left ventricular size and systolic function. Normal appearance of the left atrial appendage. Mild mitral and tricuspid regurgitation. No shunting across the interatrial septum. No need to repeat MARISELA. Q4 Neurochecks Cardiac monitoring PT, OT and SENIOR OPERATIONS ANALYST are consulted Cardiology is on board. We'll defer the rest of the medical management to the primary team For DVT prophylaxis IOn subcu heparin 5000 units every 12 hours Condition is critical Discussed with patient's daughter in detail. Patient scheduled for right CEA on , 12/23/2022.
[2022-12-20] MEDS: ATORVASTATIN 80 MG TAB PO SCH (20:36)
[2022-12-20 20:47] LABS: Glucose,Whole Blood 148 mg/dL (70-110)
[2022-12-21 00:06] LABS: Glucose,Whole Blood 144 mg/dL (70-110)
[2022-12-21] MEDS: INSULIN ASPART (NovoLOG) 100 UNIT/ML VIAL SQ SCH ×4 (01:11→17:53)
[2022-12-21] MEDS: SODIUM CHLORIDE 0.9% 1,000 ML IV SCH ×2 (04:06→11:14)
[2022-12-21] MEDS: MORPHINE SULFATE 2 MG/ML SYRINGE IVP PRN ×3 (04:34→18:57)
[2022-12-21 06:09] LABS: Basophils # (A) 0.1 k/uL (0-0.2); Basophils % (A) 1 %; Eosinophils # (A) 0.4 k/uL (0-0.7); Eosinophils % (A) 3 %; HCT 49.3 % (39.0-53.0); HGB 16.6 gm/dL (13.0-17.5); Lymphocytes # (A) 1.8 k/uL (1.0-4.8); Lymphocytes % (A) 14 %; MCH 31.3 pg (25.0-35.0); MCHC 33.7 g/dL (31.0-37.0); MCV 92.8 fL (80.0-100.0); Mean Platelet Volume 10.3; Monocytes # (A) 0.5 k/uL (0-1.0); Monocytes % (A) 4 %; Neutrophils # (A) 9.6 k/uL (1.3-7.7); Neutrophils % (A) 77 %; Platelet Count 195 k/uL (150-450); RBC 5.31 m/uL (4.30-5.90); RDW 14.7 % (11.5-15.5); WBC 12.6 k/uL (3.8-10.6)
[2022-12-21 06:26] LABS: African American GFR (CKD) >90 (>60 ml/min/1.73 sqM); Anion Gap 12 mmol/L; Blood Urea Nitrogen 14 mg/dL (9-20); Calcium 8.7 mg/dL (8.4-10.2); Carbon Dioxide 20 mmol/L (22-30); Chloride 106 mmol/L (98-107); Glucose 146 mg/dL (74-99); Non-African American GFR(CKD) >90 (>60 ml/min/1.73 sqM); Potassium 4.2 mmol/L (3.5-5.1); Sodium 138 mmol/L (137-145)
[2022-12-21] MEDS: PANTOPRAZOLE 40 MG TABLET PO SCH (06:38)
--- NOTE | 2022-12-21 07:31 | P.PN ---
Subjective Progress Note Date: 12/21/22 PROGRESS NOTE The patient is a 67-year-old male with a known history of CAD, diabetes, hyperlipidemia, history of carotid disease who presented with a CVA. He is awake, alert. He has an NG tube. He is in sinus mechanism and hemodynamically stable. He has been evaluated by the surgical team regarding carotid revascularization. On presentation he was found to have right brainstem infarct. He underwent a MARISELA in October that showed a preserved systolic function with moderate aortic stenosis and no evidence of shunting. According to the nursing staff the decision about surgery is awaiting family consultations. Medications: Aspirin, Lipitor 80 mg daily, Lexapro 5 mg daily, insulin, metoprolol 50 mg twice a day, Brilinta 90 mg twice a day,Zetia 10 mg daily PHYSICAL EXAMINATION: Blood pressure 122/80 heart rate 90 LUNGS: [Clear to auscultation] HEART: [Regular rate and rhythm, S1, S2. No S3. systolic ejection murmur] ABDOMEN: [Soft, nontender, no organomegaly] EXTREMETIES: [No edema] LAB: Potassium 4.2, BUN 14, creatinine 0.63, hemoglobin 16.6 IMPRESSION: 1. Acute CVA 2. History of CAD stable 3. Moderate aortic stenosis 4. Obstructive carotid disease 5. History of diabetes 6. History of hyperlipidemia PLAN: 1. Continue supportive care 2. Awaiting decision regarding carotid endarterectomy 3. Continue present therapy 4. Depending on his progress further inpatient be made Objective - Vital Signs Vital signs: Vital Signs Temp 97.8 F 12/21/22 04:00 Pulse 96 12/21/22 07:00 Resp 36 H 12/21/22 07:00 BP 122/80 12/21/22 07:00 Pulse Ox 95 12/21/22 07:00 FiO2 Intake & Output 12/20/22 12/21/22 12/21/22 18:59 06:59 18:59 Intake Total 1800 1785 Output Total 1200 750 Balance 600 1035 Weight 77.2 kg Intake: IV 930 975 Invasive Line 3 30 Sodium Chloride 0.9% 1, 900 975 000 ml @ 75 mls/hr IV . [id number] [facility] Rx#:[id number] Tube Feeding 780 720 Other 90 90 Output: Urine 1200 750 Other: Voiding Method External Catheter External Catheter - Labs CBC & Chem 7: 12/21/22 05:41 12/21/22 05:41 Labs: Abnormal Lab Results - Last 24 Hours (Table) 12/20/22 12/20/22 12/20/22 Range/Units 11:47 17:13 20:46 WBC (3.8-10.6) k/uL Neutrophils # (1.3-7.7) k/uL Carbon Dioxide (22-30) mmol/L Creatinine (0.66-1.25) mg/dL Glucose (74-99) mg/dL POC Glucose (mg/dL) 150 H 142 H 148 H (70-110) mg/dL 12/21/22 12/21/22 12/21/22 Range/Units 00:05 05:41 05:41 WBC 12.6 H (3.8-10.6) k/uL Neutrophils # 9.6 H (1.3-7.7) k/uL Carbon Dioxide 20 L (22-30) mmol/L Creatinine 0.63 L (0.66-1.25) mg/dL Glucose 146 H (74-99) mg/dL POC Glucose (mg/dL) 144 H (70-110) mg/dL
--- NOTE | 2022-12-21 07:58 | XR ---
EXAMINATION TYPE: XR chest 1V portable DATE OF EXAM: 12/21/2022 HISTORY: Shortness of breath. COMPARISON: 12/20/2022 TECHNIQUE: Single view of the chest is submitted. FINDINGS: Demonstrated are scattered senescent parenchymal change. NG tube is seen coursing into the stomach. Improving aeration left lower lobe with minimal residual atelectasis present. The heart is stable. Hilar and mediastinal structures are within normal limits. Degenerative changes are seen of the dorsal spine. IMPRESSION: 1. Improving aeration left lower lobe with minimal residual atelectasis present.
--- NOTE | 2022-12-21 09:27 | P.PN ---
Subjective Progress Note Date: 12/21/22 This is a 67-year-old male gentleman seen today in consultation in the intensive care unit. He has a history of chronic and ongoing tobacco dependence, hyperlipidemia, hypertension, diabetes mellitus, type II, coronary disease with previous coronary bypass grafting and stent placement. Recent admission in October 2022 for an acute ischemic stroke with left hemiparesis. MARISELA revealed no cardiac source for CVA. CT angiogram revealed a right internal carotid artery stenosis of 80-85% and a left internal carotid artery stenosis of 85%. He was to follow with vascular surgery in the outpatient setting. Unfortunately he presented back here to the hospital on 12/16/2022 with a one-day history of incr easing weakness slurred speech and left-sided weakness. MRI of the brain revealed acute ischemic changes interval finding within the right brainstem and to a lesser degree left brain stem. Residual signal abnormality in the right occipital lobe considered to be the old ischemic change. Angiography revealed calcified and noncalcified plaque at the carotid bifurcations with at least 70% stenosis on the right and 90% stenosis on the left. No evidence of dissection. No evidence of intracranial high-grade stenosis or intracranial aneurysm. He was transferred to the intensive care unit for closer monitoring throughout the night. He is seen today in consultation in the ICU. He is currently sitting up in bed. He is quite aphasic. Congested. Nasogastric tube is in place. He is being nourished with Glucerna at 60 ML's per hour. He has 0.9 normal saline at 75 ML's per hour. He is currently maintaining good O2 saturations in the 90s on room air. Aspiration precautions. His left side is still quite weak able to raise his left arm but his hand is weak. Not able to raise his left leg. White count 9.3. He was 16.9. Platelets 199. Sodium 136. Potassium 3.7. Bicarb 15. BUN 11. Creatinine 0.57. Glucose 112. He is continued on aspirin and Brilinta. Heparin for DVT prophylaxis. The patient is seen today 12/20/2022 in follow-up in the intensive care unit. He is currently sitting up in bed. Awake, alert. Maintaining O2 saturations in the 90s on 3 L/m per nasal cannula. He's been afebrile. Hemodynamically stable. Chest x-ray reveals patchy left basilar atelectasis. White count 10.3. Hemoglobin 16.5. Platelets 189. Sodium 136. Potassium 4.0. Bicarb 15. BUN 14. Creatinine 0.62. Glucose 144. Remains a phasic. Remains with left-sided weakness. Nasogastric tube in place receiving Glucerna 1.2 at a rate of 60 ML's per hour. Receiving free water flushes. 12/21/2022, the patient is essentially unchanged. He does have flaccid paralysis of the left upper extremity. Is able to move his left toes. Unable to have significant movement of the left lower extremity. There is facial asymmetry with left facial weakness. Unable to swallow and the patient is an NG tube in place and the patient is receiving enteral feeding for social support and currently is on glucerna at the rate of 60 mL an hour. He is also on accommodation of aspirin and Brilinta. The patient is hemodynamically stable. He is doing self suctioning. He has a congested cough. Is able to suction is AT 3. NO SIGNS OF ANY RESPIRATORY DISTRESS. HE IS ON OXYGEN AT 3 L/M NASAL CANNULA. THE LUPUS COUNT 12.6 WITH A HEMOGLOBIN OF 16.6 and a platelet count is at 195. BUN is at 40 with a creatinine of 0.6 and the sodium levels of 138. He is now having any episodes of hyper or hypotension. We're allowing somewhat higher blood pressures based on his underlying recent CVA. He is on Levemir insulin 8 units and is also on tradjenta and farxiga , and he is also normal saline at rate of 75 mL an hour. Cardiac rhythm remained sinus. No other significant events overnight. Neurology and vascular surgery of both on the case regarding his carotid artery stenosis bilaterally. The chest x-ray from today is essentially clear. He has a thoracotomy scar related to previous by pass surgery. He does smoke and his current comorbid conditions include hypertension, hyperlipidemia, diabetes mellitus type 2, coronary artery disease with previous bypass surgery and previous coronary stenting. Objective - Vital Signs Vital signs: Vital Signs Temp 97.9 F 12/21/22 08:00 Pulse 90 12/21/22 08:00 Resp 20 12/21/22 08:00 BP 168/81 12/21/22 08:00 Pulse Ox 92 L 12/21/22 08:00 FiO2 Intake & Output 12/20/22 12/21/22 12/21/22 18:59 06:59 18:59 Intake Total 1800 1785 Output Total 1200 750 Balance 600 1035 Weight 77.2 kg Intake: IV 930 975 Invasive Line 3 30 Sodium Chloride 0.9% 1, 900 975 000 ml @ 75 mls/hr IV . [id number] [facility] Rx#:[id number] Tube Feeding 780 720 Other 90 90 Output: Urine 1200 750 Other: Voiding Method External Catheter External Catheter External Catheter - Exam GENERAL EXAM: Alert, aphasic 67-year-old male, on room air, fairly comfortable in no apparent distress. Patient has an NG tube in place and the patient is currently on 3 L of action by nasal cannula HEAD: Normocephalic. EYES: Normal reaction of pupils, equal size. NOSE: Nasogastric tube secured in place. Clear with pink turbinates. THROAT: No erythema or exudates. NECK: No masses, no JVD. CHEST: No chest wall deformity. LUNGS: Equal air entry with bilateral scattered rhonchi. CVS: S1 and S2 normal with no audible murmur, regular rhythm. ABDOMEN: No hepatosplenomegaly, normal bowel sounds, no guarding or rigidity. SPINE: No scoliosis or deformity SKIN: No rashes CENTRAL NERVOUS SYSTEM: Aphasic, tone is normal in all 4 extremities. The patient has left upper extremity paralysis and the patient has facial asymmetry with left facial weakness. He does have dysphagia. His speech is slurred and the late yet he is able to comprehend and follow commands EXTREMITIES: Left upper and lower extremity weakness. There is no peripheral edema. Peripheral pulses are intact. - Labs CBC & Chem 7: 12/21/22 05:41 12/21/22 05:41 Labs: Abnormal Lab Results - Last 24 Hours (Table) 12/20/22 12/20/22 12/20/22 Range/Units 11:47 17:13 20:46 WBC (3.8-10.6) k/uL Neutrophils # (1.3-7.7) k/uL Carbon Dioxide (22-30) mmol/L Creatinine (0.66-1.25) mg/dL Glucose (74-99) mg/dL POC Glucose (mg/dL) 150 H 142 H 148 H (70-110) mg/dL 12/21/22 12/21/22 12/21/22 Range/Units 00:05 05:41 05:41 WBC 12.6 H (3.8-10.6) k/uL Neutrophils # 9.6 H (1.3-7.7) k/uL Carbon Dioxide 20 L (22-30) mmol/L Creatinine 0.63 L (0.66-1.25) mg/dL Glucose 146 H (74-99) mg/dL POC Glucose (mg/dL) 144 H (70-110) mg/dL Assessment and Plan Plan: Acute ischemic stroke (bilateral pontine region and right > left) and felt small focus over the right temporal region. Etiology seems embolic in nature. Has severe bilateral carotid stenosis on most recent CTA in 11/14 and on 12/18/2022 in which has right ICA 70% while left is 90% stenosis. Rule out any cardioembolic.. Failed Plavix. Currently on Brilinta, atorvastatin and aspirin Recent stroke in October 2022 in the right occipital region with left-sided weakness, slurred speech and facial droop, mainly resolved Bilateral carotid stenosis and calcified plaque at the carotid bifurcations with at least 70% stenosis on the right and 90% stenosis on the left History of coronary artery disease with previous stent placement and coronary artery bypass grafting Hypertension Hyperlipidemia Diabetes mellitus Chronic and ongoing tobacco dependence Hearing disorder Plan: Keep NG tube in place Continued on statins, Brilinta, aspirin Continue Glucerna for enteral feeding and nutritional support Continued on aspiration precautions S x-ray from today is essentially clear Currently stable and on room air We will continue to follow Neurology and vascular surgery both on the case. We'll continue to follow.
[2022-12-21] MEDS: HEPARIN SODIUM,PORCINE/PF 5,000 UNIT/0.5 ML SYRINGE SQ SCH ×2 (09:35→20:30)
[2022-12-21] MEDS: ASPIRIN 81 MG PO SCH (09:35)
[2022-12-21] MEDS: LINAGLIPTIN 5 MG TABLET PO SCH (09:35)
[2022-12-21] MEDS: FLUCONAZOLE ORAL SUSP 1,400 MG/35 ML BOTTLE PO SCH (09:35)
[2022-12-21] MEDS: TICAGRELOR 90 MG TAB PO SCH ×2 (09:35→20:31)
[2022-12-21] MEDS: ESCITALOPRAM 5 MG TAB PO SCH (09:35)
[2022-12-21] MEDS: METOPROLOL TARTRATE 50 MG TAB PO SCH ×2 (09:35→20:31)
[2022-12-21] MEDS: EZETIMIBE 10 MG TAB PO SCH (09:35)
[2022-12-21] MEDS: DAPAGLIFLOZIN PROPANEDIOL 5 MG TABLET PO SCH (09:35)
--- NOTE | 2022-12-21 10:19 | P.PN ---
Subjective Progress Note Date: 12/21/22 Principal diagnosis: Carotid stenosis Patient seen and examined lying in bed in the ICU. Patient has NG tube in for nutrition and medications. He is self suctioning his mouth. No acute changes through the night. No improvement in focal deficits. He remains on aspirin 81 mg daily and Brilinta 90 mg twice a day. Plan is for carotid endarterectomy , 12/23/2022. Objective - Vital Signs Vital signs: Vital Signs Temp 97.9 F 12/21/22 08:00 Pulse 92 12/21/22 10:00 Resp 30 H 12/21/22 10:00 BP 136/78 12/21/22 10:00 Pulse Ox 94 L 12/21/22 10:00 FiO2 Intake & Output 12/20/22 12/21/22 12/21/22 18:59 06:59 18:59 Intake Total 1800 1785 225 Output Total 1200 750 350 Balance 600 1035 -125 Weight 77.2 kg Intake: IV 930 975 225 Invasive Line 3 30 Sodium Chloride 0.9% 1, 900 975 225 000 ml @ 75 mls/hr IV . [id number] COUNTS INCLUDE 234 BEDS AT THE [facility] Rx#:[id number] Tube Feeding 780 720 Other 90 90 Output: Urine 1200 750 350 Other: Voiding Method External Catheter External Catheter External Catheter # Voids 1 - Exam General appearance: The patient is alert, oriented, appears in no acute distress. HET: Head is normocephalic and atraumatic. Pupils are equal and reactive. Neck: Supple without lymphadenopathy. Trachea midline. Right carotid bruit. Heart: Regular. Lungs: Equal expansion, normal respiratory effort. Abdomen: Soft, nontender, umbilical hernia, soft, nondistended. Extremities: Normal skin color and turgor. Bilateral palpable radial pulses. Neurological: Patient with slurred speech, left upper and lower extremity weakness. Patient has left facial droop. - Labs CBC & Chem 7: 12/21/22 05:41 12/21/22 05:41 Labs: Abnormal Lab Results - Last 24 Hours (Table) 12/20/22 12/20/22 12/20/22 Range/Units 11:47 17:13 20:46 WBC (3.8-10.6) k/uL Neutrophils # (1.3-7.7) k/uL Carbon Dioxide (22-30) mmol/L Creatinine (0.66-1.25) mg/dL Glucose (74-99) mg/dL POC Glucose (mg/dL) 150 H 142 H 148 H (70-110) mg/dL 12/21/22 12/21/22 12/21/22 Range/Units 00:05 05:41 05:41 WBC 12.6 H (3.8-10.6) k/uL Neutrophils # 9.6 H (1.3-7.7) k/uL Carbon Dioxide 20 L (22-30) mmol/L Creatinine 0.63 L (0.66-1.25) mg/dL Glucose 146 H (74-99) mg/dL POC Glucose (mg/dL) 144 H (70-110) mg/dL Assessment and Plan Assessment: 1. Acute ischemic stroke with left-sided weakness and slurred speech 2. Severe bilateral internal carotid artery stenosis, symptomatic on the right. Carotid duplex with discordant findings from previous workup 3. Diabetes mellitus 4. Coronary artery disease status post CABG and stent 5. Hypertension 6. Hyperlipidemia 7. Former smoker. Plan: As of now patient to continue medical management. Tentatively scheduled for carotid endarterectomy on . Patient is no CODE STATUS at this time. Awaiting further conversations and discussion from family and PCP on overall goals of plan of care. We will continue to follow. The impression and plan of care has been dictated as directed. I performed a history and examination of this patient, discussed the same with the dictator. I agree with the dictator's note ,documented as a scribe. Any additional findings or plans will be noted.
[2022-12-21] MEDS: Icosapent Ethyl [Icosapent Ethyl] 1 GM Capsule PO SCH ×2 (10:52→17:58)
[2022-12-21 11:19] LABS: Glucose,Whole Blood 155 mg/dL (70-110)
--- NOTE | 2022-12-21 11:51 | CA ---
Transthoracic Echo Report Name: Pb Lozada Age: 67 Gender: M : 1955 Exam Date: 12/21/2022 07:51 Exam Location: [place] [facility] Ht (in): 64 Wt (lb): 170 Ordering Physician: Jayce Coffey MD Attending/Referring Phys: Automotive Hardware Engineer Boyd Condon Procedure CPT: Indications: limited. stroke. need bubble study Cardiac Hx: Bubble study performed 11/08/22 Negative. Technical Quality: Fair Contrast 1: Total Dose (mL): Contrast 2: Total Dose (mL): MEASUREMENTS (Male / Female) Normal Values 2D ECHO LV Diastolic Diameter PLAX 3.8 cm 4.2 - 5.9 / 3.9 - 5.3 cm IVS Diastolic Thickness 0.9 cm 0.6 - 1.0 / 0.6 - 0.9 cm LVPW Diastolic Thickness 1.1 cm 0.6 - 1.0 / 0.6 - 0.9 cm LV Relative Wall Thickness 0.5 RV Internal Dim ED PLAX 3.5 cm LVOT Diameter 2.1 cm Aortic Root Diameter 3.1 cm LA Systolic Diameter LX 3.1 cm 3.0 - 4.0 / 2.7 - 3.8 cm LV Diastolic Volume MOD BP 34.8 cm??? 67 - 155 / 56 - 104 cm??? LV Systolic Volume MOD BP 11.6 cm??? 22 - 58 / 19 - 49 cm??? LV Ejection Fraction MOD BP 66.6 % >= 55 % LV Diastolic Volume MOD 4C 40.8 cm??? LV Systolic Volume MOD 4C 14.7 cm??? LV Ejection Fraction MOD 4C 63.9 % LV Diastolic Length 4C 6.0 cm LV Systolic Length 4C 5.8 cm LV Diastolic Volume MOD 2C 26.1 cm??? LV Systolic Volume MOD 2C 7.5 cm??? LV Ejection Fraction MOD 2C 71.4 % LV Diastolic Length 2C 5.2 cm LV Systolic Length 2C 4.7 cm DOPPLER AV Peak Velocity 296.3 cm/s AV Peak Gradient 35.1 mmHg AV Mean Velocity 216.1 cm/s AV Mean Gradient 21.0 mmHg AV Velocity Time Integral 48.6 cm LVOT Peak Velocity 89.0 cm/s LVOT Peak Gradient 3.2 mmHg LVOT Velocity Time Integral 14.6 cm LVOT Stroke Volume 52.3 cm??? LVOT Stroke Volume Index 28.6 ml/m??? AV Area Cont Eq vti 1.1 cm??? AV Area Cont Eq pk 1.1 cm??? Mitral E Point Velocity 109.3 cm/s Mitral A Point Velocity 137.0 cm/s Mitral E to A Ratio 0.8 MV Deceleration Time 272.1 ms TR Peak Velocity 148.8 cm/s TR Peak Gradient 8.9 mmHg Right Ventricular Systolic Press 23.9 mmHg PV Peak Velocity 124.9 cm/s PV Peak Gradient 6.2 mmHg FINDINGS Left Ventricle Left ventricular ejection fraction is estimated at 60-65 %. Right Ventricle Upper limits of normal in size. Right Atrium Normal right atrial size. Left Atrium Normal left atrial size. Mitral Valve Moderate MAC.no mitral regurgitation. Aortic Valve Not well visualized. Estimated AV Area= 1.1cm2 Tricuspid Valve Structurally normal tricuspid valve. Mild TR. RVSP= 23mmhg Pulmonic Valve Pulmonic valve not well visualized. No pulmonic regurgitation. Pericardium Normal pericardium. Aorta Normal size aortic root and proximal ascending aorta. CONCLUSIONS Normal LV systolic function Moderate mitral and a calcification Calcified aortic valve with moderate restriction in leaflet mobility with moderate aortic stenosis Suboptimal study Peak gradient across aortic valve is 35 mm Previewed by: Dr. Sergey Mcgarry MD (Electronically Signed) Final Date: 21 Dec 2022 11:50
[2022-12-21] MEDS: ACETAMINOPHEN TAB 325 MG TAB PO PRN (13:54)
--- NOTE | 2022-12-21 14:44 | P.PN ---
Subjective Progress Note Date: 12/21/22 CHIEF COMPLAINT: CVA HISTORY OF PRESENT ILLNESS: Patient remains in the ICU. He was diagnosed with acute stroke. He's having dysphagia. NG tube is placed for tube feeds. Surgical consult placed for possible PEG tube placement. He did fail a swallowing eval. He is on aspirin and Plavix. He is followed by vascular surgery and they have tentatively scheduled for a carotid endarterectomy on . Afebrile. WBC 12.6 hemoglobin 16.6 platelet 195 creatinine 0.63 potassium 4.2 albumin 3.4 PHYSICAL EXAM: VITAL SIGNS: Reviewed. GENERAL: no acute distress. ABDOMEN: Soft. Nondistended. Nontender. NEUROLOGIC: Awake ASSESSMENT: 1. CVA 2. Dysphagia with mild protein calorie malnutrition PLAN: -Surgical service on standby for PEG tube placement [facility] [employer] note has been reviewed by physician. Signing provider agrees with the documented findings, assessment, and plan of care. Objective - Vital Signs Vital signs: Vital Signs Temp 97.9 F 12/21/22 08:00 Pulse 75 12/21/22 11:00 Resp 18 12/21/22 11:00 BP 118/76 12/21/22 11:00 Pulse Ox 95 12/21/22 11:00 FiO2 Intake & Output 12/20/22 12/21/22 12/21/22 18:59 06:59 18:59 Intake Total 1800 1785 300 Output Total 1200 750 350 Balance 600 1035 -50 Weight 77.2 kg Intake: IV 930 975 300 Invasive Line 3 30 Sodium Chloride 0.9% 1, 900 975 300 000 ml @ 75 mls/hr IV . [id number] [facility] Rx#:[id number] Tube Feeding 780 720 Other 90 90 Output: Urine 1200 750 350 Other: Voiding Method External Catheter External Catheter External Catheter # Voids 1 - Labs CBC & Chem 7: 12/21/22 05:41 12/21/22 05:41 Labs: Abnormal Lab Results - Last 24 Hours (Table) 12/20/22 12/20/22 12/21/22 Range/Units 17:13 20:46 00:05 WBC (3.8-10.6) k/uL Neutrophils # (1.3-7.7) k/uL Carbon Dioxide (22-30) mmol/L Creatinine (0.66-1.25) mg/dL Glucose (74-99) mg/dL POC Glucose (mg/dL) 142 H 148 H 144 H (70-110) mg/dL 12/21/22 12/21/22 12/21/22 Range/Units 05:41 05:41 11:18 WBC 12.6 H (3.8-10.6) k/uL Neutrophils # 9.6 H (1.3-7.7) k/uL Carbon Dioxide 20 L (22-30) mmol/L Creatinine 0.63 L (0.66-1.25) mg/dL Glucose 146 H (74-99) mg/dL POC Glucose (mg/dL) 155 H (70-110) mg/dL
--- NOTE | 2022-12-21 15:21 | P.PN ---
Subjective Progress Note Date: 12/21/22 12/21/2022: Patient was seen for a follow-up. Patient continues to have significant weakness, left hemiparesis whereas the right side is normal. Patient's examination remains unchanged. 12/20/2022: Patient was initially seen by Dr. Jayce Coffey. Please refer to his note for details. Patient is a 67-year-old right-handed male with left-sided weakness, facial droop and dysarthria. Has bilateral pontine stroke. Patient has significant bilateral carotid stenosis. Patient was here about 5 weeks ago for left-sided weakness resolved. Patient was scheduled for a follow-up visit with vascular surgery tomorrow on 12/21/2022 to schedule for outpatient CEA, but he presented with an acute stroke with left hemiparesis. Carotid to be addressed during this admission. Patient's daughter was present, who believes that patient is no better as compared to yesterday. Continues to be left hemiplegic. The right side is doing well. He has severe dysarthria. Patient is not able to take by mouth, has NG tube in place. Some other workup during this hospital visit consisted of: Hemoglobin A1c is 10.0 Lipid panel is TG 376, cholesterol 190, LDL 77 and HDL is 37. CT of the head is reported as no acute finding in the head/brain. Personally reviewed the CT of the head and there is no acute or subacute ischemia. Carotid duplex was reported as less than 50% stenosis on the right carotid bifurcation. 50-60% stenosis on the left carotid bifurcation. MRI Brain is reported as acute is ischemic changes, an interval finding within brainstem right > left. Residual right occipital lobe can be related to the old ischemic change. Chronic appearing deep white matter changes. I personally reviewed the MRI and I agree with the report. The involvement of brain stem involves bilateral pontine region, right much worse than left. There is also a small focus of subacute ischemia involving the right temporal lesion. CT angiography of the head and neck was reported as calcified non-calcified plaque at the carotid bifurcation at least 70% stenosis on the right 90% stenosis on the left. No evidence for dissection of the cervical internal carotid artery or vertebral artery. No evidence of intracranial high-grade stenosis or intracranial aneurysm. Mild pulmonary vascular congestion with cardiomegaly correlate for congestive heart failure. Objective - Vital Signs Vital signs: Vital Signs Temp 97.9 F 12/21/22 08:00 Pulse 75 12/21/22 11:00 Resp 18 12/21/22 11:00 BP 118/76 12/21/22 11:00 Pulse Ox 95 12/21/22 11:00 FiO2 Intake & Output 12/20/22 12/21/22 12/21/22 18:59 06:59 18:59 Intake Total 1800 1785 300 Output Total 1200 750 350 Balance 600 1035 -50 Weight 77.2 kg Intake: IV 930 975 300 Invasive Line 3 30 Sodium Chloride 0.9% 1, 900 975 300 000 ml @ 75 mls/hr IV . [id number] [facility] Rx#:[id number] Tube Feeding 780 720 Other 90 90 Output: Urine 1200 750 350 Other: Voiding Method External Catheter External Catheter External Catheter # Voids 1 - Exam Patient is alert and awake, in no distress. He has NG tube in place. Patient has left facial asymmetry. Patient has moderate dysarthria. He is able to name objects well, and also repeat. Patient is flaccid in the left arm and leg, with some twitch in the left hand fingers, and some wiggling of the toes of the left foot. No movement proximally. The strength is normal on the right side. - Labs CBC & Chem 7: 12/21/22 05:41 12/21/22 05:41 Labs: Abnormal Lab Results - Last 24 Hours (Table) 12/20/22 12/20/22 12/21/22 Range/Units 17:13 20:46 00:05 WBC (3.8-10.6) k/uL Neutrophils # (1.3-7.7) k/uL Carbon Dioxide (22-30) mmol/L Creatinine (0.66-1.25) mg/dL Glucose (74-99) mg/dL POC Glucose (mg/dL) 142 H 148 H 144 H (70-110) mg/dL 12/21/22 12/21/22 12/21/22 Range/Units 05:41 05:41 11:18 WBC 12.6 H (3.8-10.6) k/uL Neutrophils # 9.6 H (1.3-7.7) k/uL Carbon Dioxide 20 L (22-30) mmol/L Creatinine 0.63 L (0.66-1.25) mg/dL Glucose 146 H (74-99) mg/dL POC Glucose (mg/dL) 155 H (70-110) mg/dL Assessment and Plan Assessment: This is a 67-year-old gentleman who presented that because of left-sided weakness and numbness with dysarthria. Patient stated that his symptoms began on 12/15/2022 in the afternoon for the ED was accompanied with his daughter and is seems his symptoms has been progressive for the last 48 hours prior to presenting to the hospital. Acute ischemic stroke (bilateral pontine region and right > left) and felt small focus over the right temporal region. Etiology seems embolic in nature. Has severe bilateral carotid stenosis on most recent CTA in 11/14 and on 12/18/2022 in which has right ICA 70% while left is 90% stenosis. Rule out any ca rdioembolic. Dysphagia due to above Significant left hemiparesis due to above. Recent stroke in the second week of October 2022 in which he had the right occipital and was also felt likely due to symptomatic right ICA stenosis. At that time also patient had the left-sided weakness with facial droop and slurred speech and his symptoms resolved. Patient also had the MRI which also reported acute to subacute left hernandez radiata but was felt likely T2 shine through and not acute or subacute stroke. Vascular team asked for him to follow-up as outpatient. Significant bilateral carotid stenosis. There is discordinant between CTA and carotid on both time (in 11/14/ and on 12/18/22 which is worse on CTA and not significant on carotid duplex. Recent CTA reveals right ICA 70% while left is 90%). Dyslipidemia Diabetes mellitus Hypertension Hard of hearing History of coronary artery disease status post stent as well as CABG Tobacco use Plan: During this admission, Plavix was discontinued since the patient failed the medication. Dr. Coffey has started the patient on Brilinta 90mg bid and decreased ASA from 325mg to 81mg daily. Continue Lipitor 80 mg daily at bedtime for secondary stroke prophylaxis. Vascular surgery team consulted for his symptomatic right ICA stenosis and recommend to be addressed during this admission then after that recommend left ICA to be addressed. He had similar presentation just a bit more than a month ago and was told to have carotid addressed as outpatient. Recommend blood pressure to be within 140-180's. Recommend optimize control of diabetes to target A1c < 7.0, currently 10.0 Patient had a MARISELA performed 11/08/2022, which revealed no embolic source identified. Normal left ventricular size and systolic function. Normal appearance of the left atrial appendage. Mild mitral and tricuspid regurgitat ion. No shunting across the interatrial septum. No need to repeat MARISELA. May consider placement of event monitor for 30 days post discharge. Q4 Neurochecks Cardiac monitoring PT, OT and WATER LEAK REPAIRER are consulted Cardiology is on board. We'll defer the rest of the medical management to the primary team For DVT prophylaxis IOn subcu heparin 5000 units every 12 hours Condition is critical Discussed with patient's daughter in detail. Patient scheduled for right CEA on , 12/23/2022. Discussed with primary physician.
[2022-12-21] MEDS: SCOPOLAMINE 1 MG/72 HR PATCH TRANSDERM SCH (15:58)
[2022-12-21 17:49] LABS: Glucose,Whole Blood 131 mg/dL (70-110)
--- NOTE | 2022-12-21 19:01 | P.PN ---
Subjective Progress Note Date: 12/21/22 HISTORY OF PRESENT ILLNESS This is a 67-year-old male with past medical history of diabetes mellitus type 2, hypertension, hyperlipidemia, history of VT in 2010 status post stent of the circumflex, known to have triple-vessel coronary artery disease with totally occluded collateralized right coronary artery, status post coronary artery bypass grafting using the left internal mammary artery to the left anterior descending artery, left radial artery from the aorta to the obtuse marginal artery, reverse saphenous vein graft from the aorta to the posterior descending artery, overall preserved left ventricular function, mild aortic stenosis, mild COPD with preoperative FEV1 63% of predicted, obesity, umbilical and epigastric hernia. Patient presented to the hospital due to increasing weakness and sl urred speech with history of a stroke a month ago that affected his speech and the left side of his body and was discharged on 11/08. During the hospitalization, Echocardiogram revealed EF of 55-60%, mild LVH, moderate mitral annular calcification, trace mitral regurgitation, moderate aortic stenosis, mild tricuspid regurgitation. Patient underwent MARISELA with Dr. Mckeon which revealed no cardiac source for CVA. Mild mitral and tricuspid regurgitation. Moderate aortic stenosis with mean gradient of 23 mmHg. Patient was evaluated by therapies with recommendations for home. Cardiology planned for outpatient stress testing with Dr. Mckeon and patient was to follow-up with vascular surgery regarding bilateral carotid stenosis. Patient really has had completely cover of his left-sided weakness and slurred speech. Family noticed that patient was having some difficulty with balance and walking and he started complaining of a headache and pressure behind his eye and not feeling well in general. He also was noted have incontinence and did not realize he was incontinent. Then he developed significant weakness on the left side and slurred speech and difficulty swallowing and presented to [facility] for further evaluation. Patient presents to the hospital with increased weakness and slurred speech that had progressed over the last 48 hours along with difficulty ambulating. Initial blood pressure was 109/89. WBC 11.6, hemoglobin 16.4, platelet count 218. Electrolytes are normal, creatinine 0.68. Blood sugar 192. Troponin negative. EKG sinus rhythm with no acute ST changes. CAT scan of the brain revealed no acute findings. Consult in place with vascular surgery with plans for carotid endarterectomy during this hospitalization, consult with cardiology for surgical clearance. 12/17: Patient is seen today on the cardiac stepdown unit. Patient has been seen by cardiology and cleared for carotid endarterectomy knowing that he is at intermediate risk for perioperative complications. Patient was seen by speech therapy and recommended nothing by mouth patient unable to pass a bedside swallow evaluation by speech. Patient is not safe to undergo modified barium swallow at this time. We will plan to place NG tube for patient to get his medications. Patient is also been seen by PT OT. He continues to have difficulty weakness on the left side along with expressive aphasia. Patient has been afebrile, heart rate 91, blood pressure 148/70, pulse ox 90% on room air. Blood sugars are running between 139-180. Neurology has discontinued Plavix is thought to have failed treatment and started Brilinta along with aspirin 81 mg daily, Lipitor 81 mg daily plan for permissive hypertension for the next 24 hours. Carotid ultrasound revealed less than 50% stenosis of the right carotid bifurcation, 50-69% stenosis on the left. 12/18: Patient did have an NG tube placement yesterday because the patient is not able to swallow anything at this point in time, due to his acute ischemic stroke in the right brainstem unless to the left breast and, with an old right occipital stroke, patient will be maintained on Brilinta 90 mg orally twice every day. Aspirin 81 mg once every day, and maximum dose of statin, neurology as well as vascular surgeon is following, patient will require intervention of his significant carotid artery stenosis, patient also is very noncompliant with medications treatment and follow-ups, we will continue to monitor the patient very closely, his daughters were at the bedside and updated about his current condition his prognosis overall is very guarded. 12/19: Patient was moved into the intensive care unit for better monitoring due to his bilateral brainstem stroke right more than left and prior history of right occipital infarct, currently on Brilinta 90 mg twice every day, baby aspirin 81 mg once every day, atorvastatin 80 mg once every day, Zetia 10 mg every day, neurology swallowing, continue tube feeding, continue NG tube, aspiration precautions, discussed with his daughter and his ode status and they decided on NO CODE for now and they will discuss with vascular the options of surgical intervention and the risks vs benefits at this stage of his illness 12/20: Patient is about the same is laying down in bed he appears to be weaker today, he continues to have some coughing, he is not able to handle his secretions, currently has an NG tube in place, he is doing his own suctioning of his oral secretions, he has bee on tube feeding, we will continue to monitor the patient very closely, according to the family the patient is very depressed we will start the patient on Lexapro 5 mg per NG tube once every day. 12/21: Patient is sitting up in bed is about the same, he denies any chest pain, he continues to be aphasic, he continues to have significant issues with handling his secretions, patient was started yesterday on Lexapro 5 mg per NG tube for his depression, the plan is to continue current treatment plan, the family will decide on the vascular surgery I believe he is on standby for carotid endarterectomy on REVIEW OF SYSTEMS Constitutional: No fever, no chills, no night sweats. No weight change. Reports left weakness. No daytime sleepiness. HEENT: Reports no headache. No blurred vision or double vision, no loss of vision. No loss of Hearing, no ringing in the ears, no dizziness. No nasal drainage or congestion. No epistaxis. No sore throat. Lungs: No shortness of breath, cough, no sputum production. No wheezing. Cardiovascular: No chest pain, no lower extremity edema. No palpitations. No paroxysmal nocturnal dyspnea. No orthopnea. No lightheadedness or dizziness. No syncopal episodes. Abdominal: No abdominal pain. No nausea, vomiting. No diarrhea. No constipation. No bloody or tarry stools. No loss of appetite. Genitourinary: No dysuria, increased frequency, urgency. No urinary retention. Musculoskeletal: No myalgias. Noted muscle weakness left side, noted gait dysfunction, no frequent falls. Chronic back pain, Integumentary: No wounds, no lesions. No rash or pruritus. No unusual bruising. No change in hair or nails. Neurologic: Reports slurred speech and weakness. Noted facial droop. Noted change in mentation. No head injury. Psychiatric: positive for depression. No anxiety. No mood swings. Endocrine: No abnormal blood sugars. No weight change. No excessive sweating or thirst. No cold intolerance. PHYSICAL EXAMINATION Gen: This is a 63-year-old male. He is sitting up in bed and appears to be comfortable and in no acute distress. Family members at bedside. HEENT: Head is atraumatic, normocephalic. Pupils equal, round. Sclerae is anicteric. Cortisone place to the right internal jugular. NECK: Supple. No JVD. No lymphadenopathy. No thyromegaly. LUNGS: Diminished bilaterally but otherwise clear to auscultation. No wheezes or rhonchi. No intercostal retractions. HEART: Regular rate and rhythm. 2/6 systolic ejection murmur. ABDOMEN: Soft. Bowel sounds are present. No masses. No tenderness. Acosta catheter draining clear lois urine. EXTREMITIES: No pedal edema. No calf tenderness. NEUROLOGICAL: Patient is awake, alert, weakness on the left, aphasia. ASSESSMENT AND PLAN 1. Acute ischemic CVA in the right brain stem and to a lesser degree in the left brain stem. we will continue with ASA 81 mg per NGT , Brilinta 90 mg NGT bid and Atorvastatin 80 mg , Zetia 10 mg and we will need Carotid intervention , vascular is following. 2. Acute ischemic stroke with left hemiparesis . and currently with slurred speech and not able to swallow at this time, NGT is in since there is no one can put Dobb-Alegre . 3. Bilateral internal carotid artery stenosis. Consult appreciated with vascular surgery with plan for carotid endarterectomy during this hospitalization 4. Dysphagia. NG tube placed for patient to receive medications and also nutrition until modified barium swallow can be done most likely next week. 5. Coronary artery disease status post 3 vessel CABG details above as well as previous stenting of circumflex. Continue patient on aspirin, Lipitor and zetia 6. Hypertension and hypertensive cardiovascular disease. Continue patient on Aldactone 25 mg daily, Lopressor 100 mg twice daily, we will continue to monitor BP very closely. 7. Hyperlipidemia. Continue Lipitor 80 mg daily, Zetia 10 mg daily. 8. Mild COPD, stable without exacerbation 9. Diabetes mellitus type 2. Continue patient on Levemir 15 units daily, Farxiga 5 mg daily, Tradjenta 5 mg daily, NovoLog insulin scale before meals and at bedtime. 10. Moderate aortic stenosis. Cardiology is following 11. GI prophylaxis. Protonix 40 mg daily. 12. DVT prophylaxis. Heparin 5000 units SC q12 hours. 13. Prognosis is very guarded. 14. he will require ECF post hospitalization 15. NO CODE status discussed with patient's and his daughter at the bedside 16. Depression. on Lexapro 5 mg per NG tube once every day. 17. Overall prognosis is very guarded. Objective - Vital Signs Vital signs: Vital Signs Temp 97.9 F 12/21/22 16:00 Pulse 88 12/21/22 18:00 Resp 22 12/21/22 18:00 BP 133/81 12/21/22 18:00 Pulse Ox 94 L 12/21/22 18:00 FiO2 Intake & Output 12/21/22 12/21/22 12/22/22 06:59 18:59 06:59 Intake Total 1785 900 Output Total 750 1200 Balance 1035 -300 Weight 77.2 kg Intake: IV 975 900 Sodium Chloride 0.9% 1, 975 900 000 ml @ 75 mls/hr IV . [id number] [facility] Rx#:[id number] Tube Feeding 720 Other 90 Output: Urine 750 1200 Other: Voiding Method External Catheter External Catheter # Voids 1 # Bowel Movements 1 - Labs CBC & Chem 7: 12/21/22 05:41 12/21/22 05:41 Labs: Abnormal Lab Results - Last 24 Hours (Table) 12/20/22 12/21/22 12/21/22 Range/Units 20:46 00:05 05:41 WBC 12.6 H (3.8-10.6) k/uL Neutrophils # 9.6 H (1.3-7.7) k/uL Carbon Dioxide (22-30) mmol/L Creatinine (0.66-1.25) mg/dL Glucose (74-99) mg/dL POC Glucose (mg/dL) 148 H 144 H (70-110) mg/dL 12/21/22 12/21/22 12/21/22 Range/Units 05:41 11:18 17:46 WBC (3.8-10.6) k/uL Neutrophils # (1.3-7.7) k/uL Carbon Dioxide 20 L (22-30) mmol/L Creatinine 0.63 L (0.66-1.25) mg/dL Glucose 146 H (74-99) mg/dL POC Glucose (mg/dL) 155 H 131 H (70-110) mg/dL
[2022-12-21] MEDS: ATORVASTATIN 80 MG TAB PO SCH (20:30)
[2022-12-21] MEDS: INSULIN DETEMIR (LEVEMIR) 100 UNIT/ML SYR SQ SCH (20:31)
[2022-12-21 20:35] LABS: Glucose,Whole Blood 159 mg/dL (70-110)
[2022-12-22 00:01] LABS: Glucose,Whole Blood 152 mg/dL (70-110)
[2022-12-22] MEDS: MORPHINE SULFATE 2 MG/ML SYRINGE IVP PRN ×4 (00:09→22:08)
--- NOTE | 2022-12-22 00:15 | P.CONS ---
History of Present Illness - Reason for Consult Consult date: 12/22/22 - History of Present Illness Mr Pb Lozada is a 67 y/o male who was independent with basic and advanced ADLs prior to admission. The few days prior to admission he was living with one of his daughters with 0 QUAN and 1 SH. He used no assisted devices and drove. He was living with his prior to moving in with his daughter but per daughter at bedside today they had some disagreements. He recently retired from a [employer]. Mr Lozada presented to [facility] on December 16, 2022 with complaints of headache, loss of balance. Patient's family noted left sided weakness, slurred speech and difficulty swallowing. Patient had a head CT with no acute processing. Neurology and cardiology consulted. MRI ordered and pending. Patient failed bed side swallow study and is currently NPO. He was admited for acute right sided ischemic CVA with left Hemiparesis. Cardiology had previously seen patient and he was supposed to have an outpatient endarterectomy for severe bilateral ICA stenosis. Per cardiology notes, procedure likely planned for Tuesday. PM&R consulted for rehab recommendations. He did have PT evaluation. He continues to have left sided weakness, expressive aphasia and dysphagia. Endorsing throat pain. is at bedside - he lives in multi level home with 2 QUAN; bed on main floor but bath on second floor. Past Medical History Past Medical History: Diabetes Mellitus, Hyperlipidemia, Hypertension, Myocardial Infarction (ME) Additional Past Medical History / Comment(s): current umbilical hernia Last Myocardial Infarction Date:: 2010 History of Any Multi-Drug Resistant Organisms: None Reported Past Surgical History: Coronary Bypass/CABG, Heart Catheterization With Stent Additional Past Surgical History / Comment(s): recent cardiac cath, valve replacement Past Anesthesia/Blood Transfusion Reactions: No Reported Reaction Additional Past Anesthesia/Blood Transfusion Reaction / Comm: no surgical hx Date of Last Stent Placement:: 2010 Past Psychological History: No Psychological Hx Reported Smoking Status: Never smoker Past Alcohol Use History: None Reported Additional Past Alcohol Use History / Comment(s): The patient smokes cigars off and on since age 17. No alcohol or illicit drug use. Past Drug Use History: None Reported - Past Family History Mother Family Medical History: No Reported History Additional Family Medical History / Comment(s): Mother at age 72 from diabetes complications. No history of coronary artery disease. Father Family Medical History: Coronary Artery Disease (CAD), Myocardial Infarction (ME) Additional Family Medical History / Comment(s): father at age 62 from myocardial infarction with history of coronary artery disease. Brother(s) Family Medical History: Coronary Artery Disease (CAD) Additional Family Medical History / Comment(s): Patient has 2 brothers one from myocardial infarction. One brother had myocardial infarction status post 3 vessel CABG. Sister(s) Additional Family Medical History / Comment(s): Patient has 2 sisters and one has diabetes. Patient has 3 daughters and 2 sons with no major medical problem s. Medications and Allergies Home Medications Medication Instructions Recorded Confirmed Type Insulin Aspart [Insulin Aspart 7 unit SQ AC-TID 11/04/22 12/16/22 History Flexpen] Dapagliflozin Propanediol [Farxiga] 5 mg PO DAILY 11/05/22 12/16/22 History Ezetimibe [Zetia] 10 mg PO DAILY 11/05/22 12/16/22 History Spironolactone 25 mg PO DAILY 11/05/22 12/16/22 History gemfibroziL [Lopid] 600 mg PO AC-BID 11/05/22 12/16/22 History icosapent ethyL [Icosapent Ethyl] 1 gm PO BID 11/05/22 12/16/22 History metFORMIN HCL 500 mg PO BID 11/05/22 12/16/22 History sitaGLIPtin [Januvia] 100 mg PO DAILY 11/05/22 12/16/22 History Aspirin 325 mg PO DAILY tab 11/08/22 12/16/22 Rx Atorvastatin [Lipitor] 80 mg PO HS #30 tab 11/08/22 12/16/22 Rx Clopidogrel [Plavix] 75 mg PO DAILY #30 tab 11/08/22 12/16/22 Rx Insulin Detemir [Levemir Flexpen] 15 units SQ DAILY #5 pen 11/08/22 12/16/22 Rx Metoprolol Tartrate [Lopressor] 100 mg PO BID #60 tab 11/08/22 12/16/22 Rx Allergies Allergy/AdvReac Type Severity Reaction Status Date / Time Penicillins Allergy Rash/Hives Verified 12/16/22 10:36 Physical Exam Vitals: Vital Signs Temp Pulse Resp BP Pulse Ox 12/21/22 22:00 85 20 125/65 95 05/30/23 21:00 98.7 F 88 22 135/70 93 L 12/21/22 20:00 97.8 F 91 25 H 145/78 94 L 12/21/22 19:00 89 23 142/69 93 L 12/21/22 18:00 88 22 133/81 94 L 12/21/22 17:00 81 28 H 110/69 94 L 12/21/22 16:00 97.9 F 81 21 129/100 93 L 12/21/22 15:00 90 20 117/78 94 L 12/21/22 14:00 89 22 118/74 95 12/21/22 13:00 79 17 137/106 94 L 12/21/22 12:00 98.5 F 96 21 116/61 95 12/21/22 11:00 75 18 118/76 95 12/21/22 10:00 92 30 H 136/78 94 L 12/21/22 09:30 99 12/21/22 09:00 92 30 H 129/63 95 12/21/22 08:00 97.9 F 90 20 168/81 92 L 12/21/22 07:00 96 36 H 122/80 95 12/21/22 06:00 89 22 115/73 95 12/21/22 05:00 87 21 123/75 94 L 12/21/22 04:00 97.8 F 94 22 123/75 12/21/22 03:40 24 12/21/22 03:00 79 24 130/61 96 12/21/22 02:00 82 8 L 148/77 95 12/21/22 01:00 87 20 135/69 12/21/22 00:01 98.0 F 81 21 135/69 94 L Intake and Output 12/21/22 12/21/22 12/22/22 14:59 22:59 06:59 Intake Total 525 780 Output Total 850 950 Balance -325 -170 Intake: IV 525 600 Sodium Chloride 0.9% 1, 525 600 000 ml @ 75 mls/hr IV . [id number] [facility] Rx#:[id number] Tube Feeding 180 Output: Urine 850 950 Other: Voiding Method External Catheter External Catheter # Voids 1 1 # Bowel Movements 1 General: The patient appears stated age, comfortable, NAD, sitting up in bed HEENT: +Left facial droop Neck: Supple. Cardiac: Calves supple, non tender, no edema, no cardiac distress Lungs: Breathing comfortably on nasal cannula Abdomen: Soft, nontender, nondistended Neurological: Alert. Follows commands.+Expressive aphasia. Mild left sided neglect.Cranial nerves: CN II-XII: intact. Sensation: Intact to light touch except decreased in the LUE. Musculoskeletal: ROM WFL in the RUE and RLE MMT UE Sh Abd EE EF FABD WE HG Right 5 5 5 5 5 5 Left 2 2 2 2 2 2 MMT LE HF KE DF EHL Right 5 5 5 5 Left 3 3 3 3 Reflexes Biceps Triceps Brachioradialis Patella Achilles Babinski Hoffmans Right - - Left + - Skin: Skin intact where visible to head, neck, and bilateral upper and lower extremities Psych: Calm, cooperative Results CBC & Chem 7: 12/21/22 05:41 12/21/22 05:41 Labs: Abnormal Lab Results - Last 24 Hours (Table) 12/21/22 12/21/22 12/21/22 Range/Units 00:05 05:41 05:41 WBC 12.6 H (3.8-10.6) k/uL Neutrophils # 9.6 H (1.3-7.7) k/uL Carbon Dioxide 20 L (22-30) mmol/L Creatinine 0.63 L (0.66-1.25) mg/dL Glucose 146 H (74-99) mg/dL POC Glucose (mg/dL) 144 H (70-110) mg/dL 12/21/22 12/21/22 12/21/22 Range/Units 11:18 17:46 20:33 WBC (3.8-10.6) k/uL Neutrophils # (1.3-7.7) k/uL Carbon Dioxide (22-30) mmol/L Creatinine (0.66-1.25) mg/dL Glucose (74-99) mg/dL POC Glucose (mg/dL) 155 H 131 H 159 H (70-110) mg/dL Assessment and Plan Assessment: # Acute left hemiparesis, expressive aphasia and dysphagia secondary to suspected acute right sided ischemic CVA # Bilateral carotid stenosis-plan for right CEA on 12/23/22 # Left Hemiparesis # Dysarthria # Dysphagia -currently NPO # Bowel/ Bladder: nursing to monitor # Diet: NPO at this time, [employer] to assess # Skin- per nursing # Pain Management- per MAR # DVT Prophylaxis- per IM # Comorbidities: HTN, HLD, ME, CAD with h/o CABG and stent, DM, h/o right occipital CVA # Your medical dx and management Goals: Modified Independent mobility and ADLS both basic and advanced; increased functional mobility/strength; increased balance, safety, endurance. Improvement in medical issues through your care. Barriers: left hemiparesis, dysphagia, expressive aphasia Discharge recommendation: At this time, still recommend IPR once medically stable, as patient is fully cooperative, previously independent. He did have PT evaluation and PT DC recommendation is DESIRE to increase strength and functional mobility. However, I think he would benefit from further PT assessment and possible consideration of IPR if he can tolerate.
[2022-12-22 00:17] LABS: Glucose,Whole Blood 162 mg/dL (70-110)
[2022-12-22] MEDS: INSULIN ASPART (NovoLOG) 100 UNIT/ML VIAL SQ SCH ×4 (00:20→18:58)
[2022-12-22] MEDS: SODIUM CHLORIDE 0.9% 1,000 ML IV SCH ×2 (00:20→18:58)
[2022-12-22] MEDS: Icosapent Ethyl [Icosapent Ethyl] 1 GM Capsule PO SCH ×2 (06:03→18:58)
[2022-12-22 06:04] LABS: Glucose,Whole Blood 149 mg/dL (70-110)
--- NOTE | 2022-12-22 06:09 | XR ---
EXAMINATION TYPE: XR chest 1V portable DATE OF EXAM: 12/22/2022 CLINICAL HISTORY: Difficulty breathing progress study. TECHNIQUE: Single AP portable upright view of the chest is obtained. COMPARISON: Chest x-ray from one day earlier older studies FINDINGS: Stable orogastric tube. Overlying sternal wires and mediastinal clips are redemonstrated. Patchy left basilar opacity is rede monstrated. Right lung is clear. Cardiac silhouette size stable and within normal limits. Osseous str uctures are intact. IMPRESSION: Patchy left basilar atelectasis and/or acute infiltrate. No significant change from one d ay earlier.
[2022-12-22 06:42] LABS: HCT 47.4 % (39.0-53.0); HGB 16.1 gm/dL (13.0-17.5); MCH 32.3 pg (25.0-35.0); MCV 94.9 fL (80.0-100.0); Mean Platelet Volume 10.6; Platelet Count 211 k/uL (150-450); RBC 4.99 m/uL (4.30-5.90); RDW 14.4 % (11.5-15.5); WBC 13.7 k/uL (3.8-10.6)
[2022-12-22] MEDS: PANTOPRAZOLE 40 MG TABLET PO SCH (06:42)
[2022-12-22 07:14] LABS: African American GFR (CKD) >90 (>60 ml/min/1.73 sqM); Anion Gap 13 mmol/L; Blood Urea Nitrogen 17 mg/dL (9-20); Calcium 8.7 mg/dL (8.4-10.2); Carbon Dioxide 21 mmol/L (22-30); Chloride 105 mmol/L (98-107); Glucose 173 mg/dL (74-99); Non-African American GFR(CKD) >90 (>60 ml/min/1.73 sqM); Potassium 4.3 mmol/L (3.5-5.1); Sodium 139 mmol/L (137-145)
--- NOTE | 2022-12-22 07:46 | P.PN ---
Subjective Progress Note Date: 12/22/22 PROGRESS NOTE The patient is a 67-year-old male with a known history of CAD, diabetes, hyperlipidemia, history of carotid disease who presented with a CVA. He is awake, alert. He has an NG tube. He is in sinus mechanism and hemodynamically stable. He has been evaluated by the surgical team regarding carotid revascularization. On presentation he was found to have right brainstem infarct. He underwent a MARISELA in October that showed a preserved systolic function with moderate aortic stenosis and no evidence of shunting. According to the nursing staff the decision about surgery is awaiting family consultations. December 22: The patient continues to be in sinus mechanism, as an NG tube. He has left-side d weakness. According to vascular surgery the plan is to proceed with carotid endarterectomy tomorrow. He had an echocardiogram that showed a preserved systolic function with moderate mitral regurgitation and moderate aortic stenosis with a peak gradient of 35 mmHg. Medications: Aspirin, Lipitor 80 mg daily, Lexapro 5 mg daily, insulin, metoprolol 50 mg twice a day, Brilinta 90 mg twice a day,Zetia 10 mg daily,Farxiga 5 mg daily PHYSICAL EXAMINATION: Blood pressure 136/70 heart rate 90 LUNGS: Clear to auscultation HEART: Regular rate and rhythm, S1, S2. No S3. systolic ejection murmur / ABDOMEN: Soft, nontender, no organomegaly EXTREMETIES: No edema LAB: Potassium 4.3, BUN 17, creatinine 0.61, hemoglobin 16.1 IMPRESSION: 1. Acute CVA 2. History of CAD stable with no evidence of acute ischemia 3. Moderate aortic stenosis 4. Obstructive carotid disease 5. History of diabetes 6. History of hyperlipidemia PLAN: 1. Continue supportive care 2. Plan for carotid endarterectomy tomorrow 3. Continue other treatment 4. Depending on his progress further recommendations will be made Objective - Vital Signs Vital signs: Vital Signs Temp 98.3 F 12/22/22 04:00 Pulse 98 12/22/22 07:00 Resp 21 12/22/22 07:00 BP 136/72 12/22/22 07:00 Pulse Ox 92 L 12/22/22 07:00 FiO2 Intake & Output 12/21/22 12/22/22 12/22/22 18:59 06:59 18:59 Intake Total 900 1680 Output Total 1200 1650 Balance -300 30 Weight 74.7 kg Intake: IV 900 900 Sodium Chloride 0.9% 1, 900 900 000 ml @ 75 mls/hr IV . [id number] [facility] Rx#:[id number] Tube Feeding 720 Other 60 Output: Urine 1200 1650 Other: Voiding Method External Catheter External Catheter # Voids 1 1 # Bowel Movements 1 - Labs CBC & Chem 7: 12/22/22 06:23 12/22/22 06:23 Labs: Abnormal Lab Results - Last 24 Hours (Table) 12/21/22 12/21/22 12/21/22 Range/Units 11:18 17:46 20:33 WBC (3.8-10.6) k/uL Carbon Dioxide (22-30) mmol/L Creatinine (0.66-1.25) mg/dL Glucose (74-99) mg/dL POC Glucose (mg/dL) 155 H 131 H 159 H (70-110) mg/dL 12/21/22 12/22/22 12/22/22 Range/Units 23:59 00:16 06:03 WBC (3.8-10.6) k/uL Carbon Dioxide (22-30) mmol/L Creatinine (0.66-1.25) mg/dL Glucose (74-99) mg/dL POC Glucose (mg/dL) 152 H 162 H 149 H (70-110) mg/dL 12/22/22 12/22/22 Range/Units 06:23 06:23 WBC 13.7 H (3.8-10.6) k/uL Carbon Dioxide 21 L (22-30) mmol/L Creatinine 0.61 L (0.66-1.25) mg/dL Glucose 173 H (74-99) mg/dL POC Glucose (mg/dL) (70-110) mg/dL
[2022-12-22] MEDS: LINAGLIPTIN 5 MG TABLET PO SCH (08:10)
[2022-12-22] MEDS: ESCITALOPRAM 5 MG TAB PO SCH (08:10)
[2022-12-22] MEDS: ACETAMINOPHEN TAB 325 MG TAB PO PRN (08:10)
[2022-12-22] MEDS: DAPAGLIFLOZIN PROPANEDIOL 5 MG TABLET PO SCH (08:10)
[2022-12-22] MEDS: ASPIRIN 81 MG PO SCH (08:10)
[2022-12-22] MEDS: HEPARIN SODIUM,PORCINE/PF 5,000 UNIT/0.5 ML SYRINGE SQ SCH ×2 (08:11→21:10)
[2022-12-22] MEDS: METOPROLOL TARTRATE 50 MG TAB PO SCH ×2 (08:11→21:10)
[2022-12-22] MEDS: EZETIMIBE 10 MG TAB PO SCH (08:11)
[2022-12-22] MEDS: FLUCONAZOLE ORAL SUSP 1,400 MG/35 ML BOTTLE PO SCH (08:20)
--- NOTE | 2022-12-22 09:22 | P.PN ---
Subjective Progress Note Date: 12/22/22 This is a 67-year-old male gentleman seen today in consultation in the intensive care unit. He has a history of chronic and ongoing tobacco dependence, hyperlipidemia, hypertension, diabetes mellitus, type II, coronary disease with previous coronary bypass grafting and stent placement. Recent admission in October 2022 for an acute ischemic stroke with left hemiparesis. MARISELA revealed no cardiac source for CVA. CT angiogram revealed a right internal carotid artery stenosis of 80-85% and a left internal carotid artery stenosis of 85%. He was to follow with vascular surgery in the outpatient setting. Unfortunately he presented back here to the hospital on 12/16/2022 with a one-day history of incr easing weakness slurred speech and left-sided weakness. MRI of the brain revealed acute ischemic changes interval finding within the right brainstem and to a lesser degree left brain stem. Residual signal abnormality in the right occipital lobe considered to be the old ischemic change. Angiography revealed calcified and noncalcified plaque at the carotid bifurcations with at least 70% stenosis on the right and 90% stenosis on the left. No evidence of dissection. No evidence of intracranial high-grade stenosis or intracranial aneurysm. He was transferred to the intensive care unit for closer monitoring throughout the night. He is seen today in consultation in the ICU. He is currently sitting up in bed. He is quite aphasic. Congested. Nasogastric tube is in place. He is being nourished with Glucerna at 60 ML's per hour. He has 0.9 normal saline at 75 ML's per hour. He is currently maintaining good O2 saturations in the 90s on room air. Aspiration precautions. His left side is still quite weak able to raise his left arm but his hand is weak. Not able to raise his left leg. White count 9.3. He was 16.9. Platelets 199. Sodium 136. Potassium 3.7. Bicarb 15. BUN 11. Creatinine 0.57. Glucose 112. He is continued on aspirin and Brilinta. Heparin for DVT prophylaxis. The patient is seen today 12/20/2022 in follow-up in the intensive care unit. He is currently sitting up in bed. Awake, alert. Maintaining O2 saturations in the 90s on 3 L/m per nasal cannula. He's been afebrile. Hemodynamically stable. Chest x-ray reveals patchy left basilar atelectasis. White count 10.3. Hemoglobin 16.5. Platelets 189. Sodium 136. Potassium 4.0. Bicarb 15. BUN 14. Creatinine 0.62. Glucose 144. Remains a phasic. Remains with left-sided weakness. Nasogastric tube in place receiving Glucerna 1.2 at a rate of 60 ML's per hour. Receiving free water flushes. 12/21/2022, the patient is essentially unchanged. He does have flaccid paralysis of the left upper extremity. Is able to move his left toes. Unable to have significant movement of the left lower extremity. There is facial asymmetry with left facial weakness. Unable to swallow and the patient is an NG tube in place and the patient is receiving enteral feeding for social support and currently is on glucerna at the rate of 60 mL an hour. He is also on accommodation of aspirin and Brilinta. The patient is hemodynamically stable. He is doing self suctioning. He has a congested cough. Is able to suction is AT 3. NO SIGNS OF ANY RESPIRATORY DISTRESS. HE IS ON OXYGEN AT 3 L/M NASAL CANNULA. THE WHITE COUNT 12.6 WITH A HEMOGLOBIN OF 16.6 and a platelet count is at 195. BUN is at 40 with a creatinine of 0.6 and the sodium levels of 138. He is now having any episodes of hyper or hypotension. We're allowing somewhat higher blood pressures based on his underlying recent CVA. He is on Levemir insulin 8 units and is also on tradjenta and farxiga , and he is also normal saline at rate of 75 mL an hour. Cardiac rhythm remained sinus. No other significant events overnight. Neurology and vascular surgery of both on the case regarding his carotid artery stenosis bilaterally. The chest x-ray from today is essentially clear. He has a thoracotomy scar related to previous by pass surgery. He does smoke and his current comorbid conditions include hypertension, hyperlipidemia, diabetes mellitus type 2, coronary artery disease with previous bypass surgery and previous coronary stenting. 12/22/2022, neurologically the patient is awake. Continues to have flaccid paralysis of the left upper extremity, there is some motor function, minimal motor activity in the left lower extremity. The patient is scheduled to undergo a carotid endarterectomy tomorrow by vascular surgery. He has a congested cough. At the breathing is nonlabored. He is on oxygen at 3 L. He has an NG tube in place for enteral feeding and nutritional support and the patient is currently receiving Glucerna at the rate of 60 mL an hour. The patient is tolerating his nutrition without having any major difficulties. Hemodynamically stable. Blood pressure stable. Cardiac rhythm is sinus. His blood sugars are also under adequate control. His comorbid conditions include hypertension, hyperlipidemia diabetes mellitus type 2 and he has undergone previous coronary artery bypass surgery and previous coronary stenting. Blood work from today shows a WBC count of 15.7 with a hemoglobin of 16.1 and a platelet count of 211. Sodium is at 139, BUN is at 17 with a creatinine of 0.6 and the serum bicarbs at 21. IV fluids are in the form of normal saline at the rate of 75 mL an hour. He has a Acosta catheter in place. Neurology is also on the case. I do not appreciate any major change in his neurologic function since yesterday. Echocardiogram was also completed yesterday and it showed normal LV function, moderate mitral calcification, calcification of the aortic valve with moderate degree of aortic stenosis. The peak gradient across the aortic valve was 35 mmHg. The patient remains on a combination of aspirin and Brilinta. The patient is also on Lipitor. As mentioned earlier, the patient has failed Plavix. The patient is known to have severe bilateral carotid artery stenosis based on the most recent CTA and the patient has 70% right ICA and 90% left ICA. Possibility of a cardioembolic stroke cannot be completely ruled out. The patient has bilateral ischemic stroke involving the point on midregion right more than left and a small focus over the right temporal region. Objective - Vital Signs Vital signs: Vital Signs Temp 98.3 F 12/22/22 04:00 Pulse 98 12/22/22 07:00 Resp 21 12/22/22 07:00 BP 136/72 12/22/22 07:00 Pulse Ox 95 12/22/22 07:59 FiO2 Intake & Output 12/21/22 12/22/22 12/22/22 18:59 06:59 18:59 Intake Total 900 1680 Output Total 1200 1650 Balance -300 30 Weight 74.7 kg Intake: IV 900 900 Sodium Chloride 0.9% 1, 900 900 000 ml @ 75 mls/hr IV . [id number] [facility] Rx#:[id number] Tube Feeding 720 Other 60 Output: Urine 1200 1650 Other: Voiding Method External Catheter External Catheter # Voids 1 1 # Bowel Movements 1 - Exam GENERAL EXAM: Alert, aphasic 67-year-old male, on room air, fairly comfortable in no apparent distress. Patient has an NG tube in place and the patient is currently on 3 L of action by nasal cannula HEAD: Normocephalic. EYES: Normal reaction of pupils, equal size. NOSE: Nasogastric tube secured in place. Clear with pink turbinates. THROAT: No erythema or exudates. NECK: No masses, no JVD. CHEST: No chest wall deformity. LUNGS: Equal air entry with bilateral scattered rhonchi. CVS: S1 and S2 normal with no audible murmur, regular rhythm. ABDOMEN: No hepatosplenomegaly, normal bowel sounds, no guarding or rigidity. SPINE: No scoliosis or deformity SKIN: No rashes CENTRAL NERVOUS SYSTEM: Aphasic, tone is normal in all 4 extremities. The patient has left upper extremity paralysis and the patient has facial asymmetry with left facial weakness. He does have dysphagia. His speech is slurred and the late yet he is able to comprehend and follow commands EXTREMITIES: Left upper and lower extremity weakness. There is no peripheral edema. Peripheral pulses are intact. - Labs CBC & Chem 7: 12/22/22 06:23 12/22/22 06:23 Labs: Abnormal Lab Results - Last 24 Hours (Table) 12/21/22 12/21/22 12/21/22 Range/Units 11:18 17:46 20:33 WBC (3.8-10.6) k/uL Carbon Dioxide (22-30) mmol/L Creatinine (0.66-1.25) mg/dL Glucose (74-99) mg/dL POC Glucose (mg/dL) 155 H 131 H 159 H (70-110) mg/dL 12/21/22 12/22/22 12/22/22 Range/Units 23:59 00:16 06:03 WBC (3.8-10.6) k/uL Carbon Dioxide (22-30) mmol/L Creatinine (0.66-1.25) mg/dL Glucose (74-99) mg/dL POC Glucose (mg/dL) 152 H 162 H 149 H (70-110) mg/dL 12/22/22 12/22/22 Range/Units 06:23 06:23 WBC 13.7 H (3.8-10.6) k/uL Carbon Dioxide 21 L (22-30) mmol/L Creatinine 0.61 L (0.66-1.25) mg/dL Glucose 173 H (74-99) mg/dL POC Glucose (mg/dL) (70-110) mg/dL Assessment and Plan Plan: Acute ischemic stroke (bilateral pontine region and right > left) and felt small focus over the right temporal region. Etiology seems embolic in nature. Has severe bilateral carotid stenosis on most recent CTA in 11/14 and on 12/18/2022 in which has right ICA 70% while left is 90% stenosis. Rule out any cardioembolic.. Failed Plavix. Currently on Brilinta, atorvastatin and aspirin, neurologically unchanged since yesterday and the patient continues to have significant motor deficits with left facial weakness, swallow deficit and left upper extremity paralysis and extreme left lower extremity weakness. Recent stroke in October 2022 in the right occipital region with left-sided weakness, slurred speech and facial droop, mainly resolved Bilateral carotid stenosis and calcified plaque at the carotid bifurcations with at least 70% stenosis on the right and 90% stenosis on the left History of coronary artery disease with previous stent placement and coronary artery bypass grafting Hypertension Hyperlipidemia Diabetes mellitus Chronic and ongoing tobacco dependence Hearing disorder Plan: Keep NG tube in place Consider insertion of a PEG tube for enteral feeding and nutritional support. General surgery has been consulted in that regard. Continued on statins, Brilinta, aspirin Continue Glucerna for enteral feeding and nutritional support Continued on aspiration precautions S x-ray from today is essentially clear Currently stable and the patient is currently on 2 L of oxygen by nasal cannula Contemplating carotid endarterectomy tomorrow by vascular surgery. We will continue to follow Neurology and vascular surgery both on the case. We'll continue to follow.
[2022-12-22] MEDS: TICAGRELOR 90 MG TAB PO SCH ×2 (10:45→19:38)
--- NOTE | 2022-12-22 11:26 | P.PN ---
Subjective Progress Note Date: 12/22/22 Principal diagnosis: Carotid stenosis Patient seen and examined sitting up in the ICU. No acute changes through the night. Patient remains nothing by mouth with NG tube in place for nutrition. Patient self suctioning mouth as needed. Plan is for right carotid endarterectomy tomorrow. Objective - Vital Signs Vital signs: Vital Signs Temp 98.3 F 12/22/22 04:00 Pulse 98 12/22/22 07:00 Resp 21 12/22/22 07:00 BP 136/72 12/22/22 07:00 Pulse Ox 95 12/22/22 07:59 FiO2 Intake & Output 12/21/22 12/22/22 12/22/22 18:59 06:59 18:59 Intake Total 900 1680 Output Total 1200 1650 Balance -300 30 Weight 74.7 kg Intake: IV 900 900 Sodium Chloride 0.9% 1, 900 900 000 ml @ 75 mls/hr IV . [id number] [facility] Rx#:[id number] Tube Feeding 720 Other 60 Output: Urine 1200 1650 Other: Voiding Method External Catheter External Catheter # Voids 1 1 # Bowel Movements 1 - Exam General appearance: The patient is alert, oriented, appears in no acute distress. HET: Head is normocephalic and atraumatic. Pupils are equal and reactive. Neck: Supple without lymphadenopathy. Trachea midline. Right carotid bruit. Heart: Regular. Lungs: Equal expansion, normal respiratory effort. Abdomen: Soft, nontender, umbilical hernia, soft, nondistended. Extremities: Normal skin color and turgor. Bilateral palpable radial pulses. Neurological: Patient with slurred speech, left upper and lower extremity weakness. Patient has left facial droop. - Labs CBC & Chem 7: 12/22/22 06:23 12/22/22 06:23 Labs: Abnormal Lab Results - Last 24 Hours (Table) 12/21/22 12/21/22 12/21/22 Range/Units 11:18 17:46 20:33 WBC (3.8-10.6) k/uL Carbon Dioxide (22-30) mmol/L Creatinine (0.66-1.25) mg/dL Glucose (74-99) mg/dL POC Glucose (mg/dL) 155 H 131 H 159 H (70-110) mg/dL 12/21/22 12/22/22 12/22/22 Range/Units 23:59 00:16 06:03 WBC (3.8-10.6) k/uL Carbon Dioxide (22-30) mmol/L Creatinine (0.66-1.25) mg/dL Glucose (74-99) mg/dL POC Glucose (mg/dL) 152 H 162 H 149 H (70-110) mg/dL 12/22/22 12/22/22 Range/Units 06:23 06:23 WBC 13.7 H (3.8-10.6) k/uL Carbon Dioxide 21 L (22-30) mmol/L Creatinine 0.61 L (0.66-1.25) mg/dL Glucose 173 H (74-99) mg/dL POC Glucose (mg/dL) (70-110) mg/dL Assessment and Plan Assessment: 1. Acute ischemic stroke with left-sided weakness and slurred speech 2. Severe bilateral internal carotid artery stenosis, symptomatic on the right. Carotid duplex with discordant findings from previous workup 3. Diabetes mellitus 4. Coronary artery disease status post CABG and stent 5. Hypertension 6. Hyperlipidemia 7. Former smoker. Plan: Discussion With patient's and daughter at the bedside with Dr. Martinez yesterday. They wish to proceed with right carotid endarterectomy as scheduled for 12/23/2022. It was discussed with them again risks and benefits of surgery, and that this will not improve patient's symptoms. Also discussed that brainstem deficit as seen on MRI is not related to carotid disease. They verbalized understanding and again wished to proceed with right carotid endarterectomy. Patient is no CODE STATUS at this time. Nothing by mouth after midnight. Hold Brilinta this evening and tomorrow morning. The impression and plan of care has been dictated as directed. Dr. Acosta I performed a history and examination of this patient, discussed the same with the dictator. I agree with the dictator's note ,documented as a scribe. Any additional findings or plans will be noted.
--- NOTE | 2022-12-22 11:41 | XR ---
EXAMINATION TYPE: XR chest 1V portable DATE OF EXAM: 12/22/2022 Comparison: 12/22/2022 Clinical History: 67-year-old male Dobbhoff placement Findings: Interval exchange for the patient's NG tube and placement of Dobbhoff tube. Tip probably in the regio n of the mid to distal gastric body. Median sternotomy wires and post-CABG clips. Heart normal size. Mild hyperinflation mild interstitial prominence. Some patchy retrocardiac density remains. No pleura l effusion. Impression: COPD. Placement of a Dobbhoff tube. Tip probably within the mid to distal gastric body.
[2022-12-22 11:50] LABS: Glucose,Whole Blood 137 mg/dL (70-110)
--- NOTE | 2022-12-22 15:27 | P.PN ---
Subjective Progress Note Date: 12/22/22 CHIEF COMPLAINT: CVA HISTORY OF PRESENT ILLNESS: Patient remains in the ICU. He was diagnosed with acute stroke. He's having dysphagia. NG tube is placed for tube feeds. Surgical consult placed for possible PEG tube placement. He did fail a swallowing eval. He is on aspirin and Brilenta. He is followed by vascular surgery and they have tentatively scheduled for a carotid endarterectomy on . Afebrile. WBC 13.7 PHYSICAL EXAM: VITAL SIGNS: Reviewed. GENERAL: no acute distress. ABDOMEN: Soft. Nondistended. Nontender. NEUROLOGIC: Awake ASSESSMENT: 1. CVA 2. Dysphagia with mild protein calorie malnutrition PLAN: -Patient and family are agreeable for PEG tube placement -Anticipate PEG tube placement at the beginning of next week Physician Quill Buncher And Sorter note has been reviewed by physician. Signing provider agrees with the documented findings, assessment, and plan of care. Objective - Vital Signs Vital signs: Vital Signs Temp 98.4 F 12/22/22 12:00 Pulse 92 12/22/22 14:00 Resp 18 12/22/22 14:00 BP 128/72 12/22/22 14:00 Pulse Ox 93 L 12/22/22 14:00 FiO2 Intake & Output 12/21/22 12/22/22 12/22/22 18:59 06:59 18:59 Intake Total 900 1680 540 Output Total 1200 1650 500 Balance -300 30 40 Weight 74.7 kg Intake: IV 900 900 300 Sodium Chloride 0.9% 1, 900 900 300 000 ml @ 75 mls/hr IV . [id number] [facility] Rx#:[id number] Tube Feeding 720 240 Other 60 Output: Urine 1200 1650 500 Other: Voiding Method External Catheter External Catheter External Catheter # Voids 1 1 # Bowel Movements 1 - Labs CBC & Chem 7: 12/22/22 06:23 12/22/22 06:23 Labs: Abnormal Lab Results - Last 24 Hours (Table) 12/21/22 12/21/22 12/21/22 Range/Units 17:46 20:33 23:59 WBC (3.8-10.6) k/uL Carbon Dioxide (22-30) mmol/L Creatinine (0.66-1.25) mg/dL Glucose (74-99) mg/dL POC Glucose (mg/dL) 131 H 159 H 152 H (70-110) mg/dL 12/22/22 12/22/22 12/22/22 Range/Units 00:16 06:03 06:23 WBC 13.7 H (3.8-10.6) k/uL Carbon Dioxide (22-30) mmol/L Creatinine (0.66-1.25) mg/dL Glucose (74-99) mg/dL POC Glucose (mg/dL) 162 H 149 H (70-110) mg/dL 12/22/22 12/22/22 Range/Units 06:23 11:48 WBC (3.8-10.6) k/uL Carbon Dioxide 21 L (22-30) mmol/L Creatinine 0.61 L (0.66-1.25) mg/dL Glucose 173 H (74-99) mg/dL POC Glucose (mg/dL) 137 H (70-110) mg/dL
--- NOTE | 2022-12-22 15:45 | XR ---
EXAMINATION TYPE: XR chest 1V portable DATE OF EXAM: 12/22/2022 CLINICAL HISTORY: Dobbhoff replacement. TECHNIQUE: Single AP portable upright view of the chest is obtained. COMPARISON: Chest x-ray from earlier today FINDINGS: Large bore feeding catheter redemonstrated projecting below diaphragm towards the gastrodu odenal junction. Overlying sternal wires and mediastinal clips are redemonstrated. Cardiac silhouette size stable and upper limits of normal. Patchy left basilar opacity favoring atelectasis redemonstrated. Right lung r emains clear. Osseous structures are intact. IMPRESSION: As above.
[2022-12-22 16:54] LABS: Glucose,Whole Blood 152 mg/dL (70-110)
--- NOTE | 2022-12-22 17:17 | P.PN ---
Subjective Progress Note Date: 12/22/22 12/22/2022: Patient is laying comfortably in the bed. States he has trouble with his speech. The left side continues to be very weak. 12/21/2022: Patient was seen for a follow-up. Patient continues to have significant weakness, left hemiparesis whereas the right side is normal. Patient's examination remains unchanged. 12/20/2022: Patient was initially seen by Dr. Jayce Coffey. Please refer to his note for details. Patient is a 67-year-old right-handed male with left-sided weakness, facial droop and dysarthria. Has bilateral pontine stroke. Patient has significant bilateral carotid stenosis. Patient was here about 5 weeks ago for left-sided weakness resolved. Patient was scheduled for a follow-up visit with vascular surgery tomorrow on 12/21/2022 to schedule for outpatient CEA, but he presented with an acute stroke with left hemiparesis. Carotid to be addressed during this admission. Patient's daughter was present, who believes that patient is no better as compared to yesterday. Continues to be left hemiplegic. The right side is doing well. He has severe dysarthria. Patient is not able to take by mouth, has NG tube in place. Some other workup during this hospital visit consisted of: Hemoglobin A1c is 10.0 Lipid panel is TG 376, cholesterol 190, LDL 77 and HDL is 37. CT of the head is reported as no acute finding in the head/brain. Personally reviewed the CT of the head and there is no acute or subacute ischemia. Carotid duplex was reported as less than 50% stenosis on the right carotid bifurcation. 50-60% stenosis on the left carotid bifurcation. MRI Brain is reported as acute is ischemic changes, an interval finding within brainstem right > left. Residual right occipital lobe can be related to the old ischemic change. Chronic appearing deep white matter changes. I personally reviewed the MRI and I agree with the report. The involvement of brain stem involves bilateral pontine region, right much worse than left. There is also a small focus of subacute ischemia involving the right temporal lesion. CT angiography of the head and neck was reported as calcified non-calcified plaque at the carotid bifurcation at least 70% stenosis on the right 90% stenosis on the left. No evidence for dissection of the cervical internal carotid artery or vertebral artery. No evidence of intracranial high-grade stenosis or intracranial aneurysm. Mild pulmonary vascular congestion with cardiomegaly correlate for congestive heart failure. Objective - Vital Signs Vital signs: Vital Signs Temp 98.4 F 12/22/22 12:00 Pulse 98 12/22/22 15:00 Resp 29 H 12/22/22 15:00 BP 121/52 12/22/22 15:00 Pulse Ox 94 L 12/22/22 15:00 FiO2 Intake & Output 12/21/22 12/22/22 12/22/22 18:59 06:59 18:59 Intake Total 900 1680 1080 Output Total 1200 1650 1200 Balance -300 30 -120 Weight 74.7 kg Intake: IV 900 900 600 Sodium Chloride 0.9% 1, 900 900 600 000 ml @ 75 mls/hr IV . [id number] [facility] Rx#:[id number] Tube Feeding 720 480 Other 60 Output: Urine 1200 1650 1200 Other: Voiding Method External Catheter External Catheter External Catheter # Voids 1 1 # Bowel Movements 1 - Exam Patient is alert and awake, in no distress. He has NG tube in place. Patient has left facial asymmetry. Patient has moderate dysarthria. He is able to name objects well, and also repeat. No aphasia. Patient is flaccid in the left arm with trace gross movement and left leg with 1-2 gross flexion and about 3+4-at the right ankle. The strength is normal on the right side. - Labs CBC & Chem 7: 12/22/22 06:23 12/22/22 06:23 Labs: Abnormal Lab Results - Last 24 Hours (Table) 12/21/22 12/21/22 12/21/22 Range/Units 17:46 20:33 23:59 WBC (3.8-10.6) k/uL Carbon Dioxide (22-30) mmol/L Creatinine (0.66-1.25) mg/dL Glucose (74-99) mg/dL POC Glucose (mg/dL) 131 H 159 H 152 H (70-110) mg/dL 12/22/22 12/22/22 12/22/22 Range/Units 00:16 06:03 06:23 WBC 13.7 H (3.8-10.6) k/uL Carbon Dioxide (22-30) mmol/L Creatinine (0.66-1.25) mg/dL Glucose (74-99) mg/dL POC Glucose (mg/dL) 162 H 149 H (70-110) mg/dL 12/22/22 12/22/22 12/22/22 Range/Units 06:23 11:48 16:53 WBC (3.8-10.6) k/uL Carbon Dioxide 21 L (22-30) mmol/L Creatinine 0.61 L (0.66-1.25) mg/dL Glucose 173 H (74-99) mg/dL POC Glucose (mg/dL) 137 H 152 H (70-110) mg/dL Assessment and Plan Assessment: This is a 67-year-old gentleman who presented that because of left-sided weakness and numbness with dysarthria. Patient stated that his symptoms began on 12/15/2022 in the afternoon for the ED was accompanied with his daughter and is seems his symptoms has been progressive for the last 48 hours prior to presenting to the hospital. Acute ischemic stroke (bilateral pontine region and right > left) and felt small focus over the right temporal region. Etiology seems embolic in nature. Has severe bilateral carotid stenosis on most recent CTA in 11/14 and on 12/18/2022 in which has right ICA 70% while left is 90% stenosis. Rule out any cardioembolic. Dysphagia due to above Significant left hemiparesis due to above. Recent stroke in the second week of October 2022 in which he had the right occipital and was also felt likely due to symptomatic right ICA stenosis. At that time also patient had the left-sided weakness with facial droop and slurred speech and his symptoms resolved. Patient also had the MRI which also reported acute to subacute left hernandez radiata but was felt likely T2 shine through and not acute or subacute stroke. Vascular team asked for him to follow-up as outpatient. Significant bilateral carotid stenosis. There is discordinant between CTA and carotid on both time (in 11/14/ and on 12/18/22 which is worse on CTA and not significant on carotid duplex. Recent CTA reveals right ICA 70% while left is 90%). Dyslipidemia Diabetes mellitus Hypertension Hard of hearing History of coronary artery disease status post stent as well as CABG Tobacco use Plan: During this admission, Plavix was discontinued since the patient failed the medication. Dr. Coffey has started the patient on Brilinta 90mg bid and decreased ASA from 325mg to 81mg daily. Continue Lipitor 80 mg daily at bedtime for secondary stroke prophylaxis. Vascular surgery team consulted for his symptomatic right ICA stenosis and recommend to be addressed during this admission then after that recommend left ICA to be addressed. He had similar presentation just a bit more than a month ago and was told to have carotid addressed as outpatient. Recommend blood pressure to be within 140-180's. Recommend optimize control of diabetes to target A1c < 7.0, currently 10.0 Patient had a MARISELA performed 11/08/2022, which revealed no embolic source identified. Normal left ventricular size and systolic function. Normal appearance of the left atrial appendage. Mild mitral and tricuspid regurgitation. No shunting across the interatrial septum. No need to repeat MARISELA. May consider placement of event monitor for 30 days post discharge. Patient undergo right CEA in the morning. Q4 Neurochecks Cardiac monitoring PT, OT and TRANSMISSION DESIGN ENGINEER are consulted Cardiology is on board. We'll defer the rest of the medical management to the primary team For DVT prophylaxis IOn subcu heparin 5000 units every 12 hours Condition is critical Discussed with primary physician.
--- NOTE | 2022-12-22 17:38 | P.PN ---
Subjective Progress Note Date: 12/22/22 HISTORY OF PRESENT ILLNESS This is a 67-year-old male with past medical history of diabetes mellitus type 2, hypertension, hyperlipidemia, history of [place] in 2010 status post stent of the circumflex, known to have triple-vessel coronary artery disease with totally occluded collateralized right coronary artery, status post coronary artery bypass grafting using the left internal mammary artery to the left anterior descending artery, left radial artery from the aorta to the obtuse marginal artery, reverse saphenous vein graft from the aorta to the posterior descending artery, overall preserved left ventricular function, mild aortic stenosis, mild COPD with preoperative FEV1 63% of predicted, obesity, umbilical and epigastric hernia. Patient presented to the hospital due to increasing weakness and sl urred speech with history of a stroke a month ago that affected his speech and the left side of his body and was discharged on 11/08. During the hospitalization, Echocardiogram revealed EF of 55-60%, mild LVH, moderate mitral annular calcification, trace mitral regurgitation, moderate aortic stenosis, mild tricuspid regurgitation. Patient underwent MARISELA with Dr. Mckeon which revealed no cardiac source for CVA. Mild mitral and tricuspid regurgitation. Moderate aortic stenosis with mean gradient of 23 mmHg. Patient was evaluated by therapies with recommendations for home. Cardiology planned for outpatient stress testing with Dr. Mckeon and patient was to follow-up with vascular surgery regarding bilateral carotid stenosis. Patient really has had completely cover of his left-sided weakness and slurred speech. Family noticed that patient was having some difficulty with balance and walking and he started complaining of a headache and pressure behind his eye and not feeling well in general. He also was noted have incontinence and did not realize he was incontinent. Then he developed significant weakness on the left side and slurred speech and difficulty swallowing and presented to [facility] for further evaluation. Patient presents to the hospital with increased weakness and slurred speech that had progressed over the last 48 hours along with difficulty ambulating. Initial blood pressure was 109/89. WBC 11.6, hemoglobin 16.4, platelet count 218. Electrolytes are normal, creatinine 0.68. Blood sugar 192. Troponin negative. EKG sinus rhythm with no acute ST changes. CAT scan of the brain revealed no acute findings. Consult in place with vascular surgery with plans for carotid endarterectomy during this hospitalization, consult with cardiology for surgical clearance. 12/17: Patient is seen today on the cardiac stepdown unit. Patient has been seen by cardiology and cleared for carotid endarterectomy knowing that he is at intermediate risk for perioperative complications. Patient was seen by speech therapy and recommended nothing by mouth patient unable to pass a bedside swallow evaluation by speech. Patient is not safe to undergo modified barium swallow at this time. We will plan to place NG tube for patient to get his medications. Patient is also been seen by PT OT. He continues to have difficulty weakness on the left side along with expressive aphasia. Patient has been afebrile, heart rate 91, blood pressure 148/70, pulse ox 90% on room air. Blood sugars are running between 139-180. Neurology has discontinued Plavix is thought to have failed treatment and started Brilinta along with aspirin 81 mg daily, Lipitor 81 mg daily plan for permissive hypertension for the next 24 hours. Carotid ultrasound revealed less than 50% stenosis of the right carotid bifurcation, 50-69% stenosis on the left. 12/18: Patient did have an NG tube placement yesterday because the patient is not able to swallow anything at this point in time, due to his acute ischemic stroke in the right brainstem unless to the left breast and, with an old right occipital stroke, patient will be maintained on Brilinta 90 mg orally twice every day. Aspirin 81 mg once every day, and maximum dose of statin, neurology as well as vascular surgeon is following, patient will require intervention of his significant carotid artery stenosis, patient also is very noncompliant with medications treatment and follow-ups, we will continue to monitor the patient very closely, his daughters were at the bedside and updated about his current condition his prognosis overall is very guarded. 12/19: Patient was moved into the intensive care unit for better monitoring due to his bilateral brainstem stroke right more than left and prior history of right occipital infarct, currently on Brilinta 90 mg twice every day, baby aspirin 81 mg once every day, atorvastatin 80 mg once every day, Zetia 10 mg every day, neurology swallowing, continue tube feeding, continue NG tube, aspiration precautions, discussed with his daughter and his ode status and they decided on NO CODE for now and they will discuss with vascular the options of surgical intervention and the risks vs benefits at this stage of his illness 12/20: Patient is about the same is laying down in bed he appears to be weaker today, he continues to have some coughing, he is not able to handle his secretions, currently has an NG tube in place, he is doing his own suctioning of his oral secretions, he has bee on tube feeding, we will continue to monitor the patient very closely, according to the family the patient is very depressed we will start the patient on Lexapro 5 mg per NG tube once every day. 12/21: Patient is sitting up in bed is about the same, he denies any chest pain, he continues to be aphasic, he continues to have significant issues with handling his secretions, patient was started yesterday on Lexapro 5 mg per NG tube for his depression, the plan is to continue current treatment plan, the family will decide on the vascular surgery I believe he is on standby for carotid endarterectomy on 12/22: Patient is about the same he is not doing better, he continues to have an NG tube in place, this is not a long-term solution at this time, patient will require to have a PEG tube placement for long-term tube feeding, and medication use. Patient is supposed to go for a carotid endarterectomy tomorrow morning, patient has been followed by multiple specialties prognosis very guarded patient is no code at this time he will require long-term care facility post discharge from the hospital. REVIEW OF SYSTEMS Constitutional: No fever, no chills, no night sweats. No weight change. Reports left weakness. No daytime sleepiness. HEENT: Reports no headache. No blurred vision or double vision, no loss of vision. No loss of Hearing, no ringing in the ears, no dizziness. No nasal drainage or congestion. No epistaxis. No sore throat. Lungs: No shortness of breath, cough, no sputum production. No wheezing. Cardiovascular: No chest pain, no lower extremity edema. No palpitations. No paroxysmal nocturnal dyspnea. No orthopnea. No lightheadedness or dizziness. No syncopal episodes. Abdominal: No abdominal pain. No nausea, vomiting. No diarrhea. No constipation. No bloody or tarry stools. No loss of appetite. Genitourinary: No dysuria, increased frequency, urgency. No urinary retention. Musculoskeletal: No myalgias. Noted muscle weakness left side, noted gait dysfunction, no frequent falls. Chronic back pain, Integumentary: No wounds, no lesions. No rash or pruritus. No unusual bruising. No change in hair or nails. Neurologic: Reports slurred speech and weakness. Noted facial droop. Noted change in mentation. No head injury. Psychiatric: positive for depression. No anxiety. No mood swings. Endocrine: No abnormal blood sugars. No weight change. No excessive sweating or thirst. No cold intolerance. PHYSICAL EXAMINATION Gen: This is a 63-year-old male. He is sitting up in bed and appears to be comfortable and in no acute distress. Family members at bedside. HEENT: Head is atraumatic, normocephalic. Pupils equal, round. Sclerae is anicteric. Cortisone place to the right internal jugular. NECK: Supple. No JVD. No lymphadenopathy. No thyromegaly. LUNGS: Diminished bilaterally but otherwise clear to auscultation. No wheezes or rhonchi. No intercostal retractions. HEART: Regular rate and rhythm. 2/6 systolic ejection murmur. ABDOMEN: Soft. Bowel sounds are present. No masses. No tenderness. Acosta catheter draining clear lois urine. EXTREMITIES: No pedal edema. No calf tenderness. NEUROLOGICAL: Patient is awake, alert, weakness on the left, aphasia. ASSESSMENT AND PLAN 1. Acute ischemic CVA in the right brain stem and to a lesser degree in the left brain stem. we will continue with ASA 81 mg per NGT , Brilinta 90 mg NGT bid and Atorvastatin 80 mg , Zetia 10 mg and we will need Carotid intervention , vascular is following. 2. Acute ischemic stroke with left hemiparesis . and currently with slurred speech and not able to swallow at this time, NGT is in since there is no one can put Dobb-Alegre . 3. Bilateral internal carotid artery stenosis. Consult appreciated with v ascular surgery with plan for carotid endarterectomy during this hospitalization 4. Dysphagia. NG tube placed for patient to receive medications and also nutrition until modified barium swallow can be done most likely next week. 5. Coronary artery disease status post 3 vessel CABG details above as well as previous stenting of circumflex. Continue patient on aspirin, Lipitor and zetia 6. Hypertension and hypertensive cardiovascular disease. Continue patient on Aldactone 25 mg daily, Lopressor 100 mg twice daily, we will continue to monitor BP very closely. 7. Hyperlipidemia. Continue Lipitor 80 mg daily, Zetia 10 mg daily. 8. Mild COPD, stable without exacerbation 9. Diabetes mellitus type 2. Continue patient on Levemir 15 units daily, Farxiga 5 mg daily, Tradjenta 5 mg daily, NovoLog insulin scale before meals and at bedtime. 10. Moderate aortic stenosis. Cardiology is following 11. GI prophylaxis. Protonix 40 mg daily. 12. DVT prophylaxis. Heparin 5000 units SC q12 hours. 13. Prognosis is very guarded. 14. he will require ECF post hospitalization 15. NO CODE status discussed with patient's and his daughter at the bedside 16. Depression. on Lexapro 5 mg per NG tube once every day. 17. Overall prognosis is very guarded. Objective - Vital Signs Vital signs: Vital Signs Temp 98.3 F 12/22/22 04:00 Pulse 98 12/22/22 07:00 Resp 21 12/22/22 07:00 BP 136/72 12/22/22 07:00 Pulse Ox 95 12/22/22 07:59 FiO2 Intake & Output 12/21/22 12/22/22 12/22/22 18:59 06:59 18:59 Intake Total 900 1680 540 Output Total 1200 1650 500 Balance -300 30 40 Weight 74.7 kg Intake: IV 900 900 300 Sodium Chloride 0.9% 1, 900 900 300 000 ml @ 75 mls/hr IV . [id number] [facility] Rx#:[id number] Tube Feeding 720 240 Other 60 Output: Urine 1200 1650 500 Other: Voiding Method External Catheter External Catheter External Catheter # Voids 1 1 # Bowel Movements 1 - Labs CBC & Chem 7: 12/22/22 06:23 12/22/22 06:23 Labs: Abnormal Lab Results - Last 24 Hours (Table) 12/21/22 12/21/22 12/21/22 Range/Units 17:46 20:33 23:59 WBC (3.8-10.6) k/uL Carbon Dioxide (22-30) mmol/L Creatinine (0.66-1.25) mg/dL Glucose (74-99) mg/dL POC Glucose (mg/dL) 131 H 159 H 152 H (70-110) mg/dL 12/22/22 12/22/22 12/22/22 Range/Units 00:16 06:03 06:23 WBC 13.7 H (3.8-10.6) k/uL Carbon Dioxide (22-30) mmol/L Creatinine (0.66-1.25) mg/dL Glucose (74-99) mg/dL POC Glucose (mg/dL) 162 H 149 H (70-110) mg/dL 12/22/22 12/22/22 Range/Units 06:23 11:48 WBC (3.8-10.6) k/uL Carbon Dioxide 21 L (22-30) mmol/L Creatinine 0.61 L (0.66-1.25) mg/dL Glucose 173 H (74-99) mg/dL POC Glucose (mg/dL) 137 H (70-110) mg/dL
[2022-12-22] MEDS: ATORVASTATIN 80 MG TAB PO SCH (21:10)
[2022-12-22] MEDS: INSULIN DETEMIR (LEVEMIR) 100 UNIT/ML SYR SQ SCH (21:10)
[2022-12-22 23:28] LABS: Glucose,Whole Blood 141 mg/dL (70-110)
[2022-12-23] MEDS: INSULIN ASPART (NovoLOG) 100 UNIT/ML VIAL SQ SCH ×5 (01:27→23:57)
[2022-12-23] MEDS: SODIUM CHLORIDE 0.9% 1,000 ML IV SCH ×2 (04:26→19:17)
[2022-12-23] MEDS: MORPHINE SULFATE 2 MG/ML SYRINGE IVP PRN ×2 (04:30→18:50)
[2022-12-23 06:02] LABS: Basophils # (A) 0.1 k/uL (0-0.2); Basophils % (A) 1 %; Eosinophils # (A) 0.4 k/uL (0-0.7); Eosinophils % (A) 4 %; HCT 47.5 % (39.0-53.0); HGB 15.2 gm/dL (13.0-17.5); Lymphocytes # (A) 1.4 k/uL (1.0-4.8); Lymphocytes % (A) 15 %; MCH 30.5 pg (25.0-35.0); MCHC 31.9 g/dL (31.0-37.0); MCV 95.4 fL (80.0-100.0); Monocytes # (A) 0.5 k/uL (0-1.0); Monocytes % (A) 5 %; Neutrophils # (A) 7.1 k/uL (1.3-7.7); Neutrophils % (A) 72 %; Platelet Count 182 k/uL (150-450); RBC 4.98 m/uL (4.30-5.90); RDW 14.8 % (11.5-15.5); WBC 9.8 k/uL (3.8-10.6)
[2022-12-23 06:13] LABS: African American GFR (CKD) >90 (>60 ml/min/1.73 sqM); Anion Gap 12 mmol/L; Blood Urea Nitrogen 20 mg/dL (9-20); Calcium 8.6 mg/dL (8.4-10.2); Carbon Dioxide 24 mmol/L (22-30); Chloride 105 mmol/L (98-107); Glucose 122 mg/dL (74-99); Non-African American GFR(CKD) >90 (>60 ml/min/1.73 sqM); Potassium 4.2 mmol/L (3.5-5.1); Sodium 141 mmol/L (137-145)
[2022-12-23 06:16] LABS: INR 0.9 (<1.2); Prothrombin Time 9.9 sec (9.0-12.0)
[2022-12-23] MEDS: PANTOPRAZOLE 40 MG TABLET PO SCH (07:38)
[2022-12-23] MEDS: Icosapent Ethyl [Icosapent Ethyl] 1 GM Capsule PO SCH ×3 (07:38→17:48)
[2022-12-23] MEDS: DAPAGLIFLOZIN PROPANEDIOL 5 MG TABLET PO SCH (08:07)
[2022-12-23] MEDS: LINAGLIPTIN 5 MG TABLET PO SCH (08:08)
[2022-12-23] MEDS: TICAGRELOR 90 MG TAB PO SCH ×2 (08:12→22:32)
--- NOTE | 2022-12-23 08:28 | P.PN ---
Subjective Progress Note Date: 12/23/22 PROGRESS NOTE The patient is a 67-year-old male with a known history of CAD, diabetes, hyperlipidemia, history of carotid disease who presented with a CVA. He is awake, alert. He has an NG tube. He is in sinus mechanism and hemodynamically stable. He has been evaluated by the surgical team regarding carotid revascularization. On presentation he was found to have right brainstem infarct. He underwent a MARISELA in October that showed a preserved systolic function with moderate aortic stenosis and no evidence of shunting. According to the nursing staff the decision about surgery is awaiting family consultations. December 22: The patient continues to be in sinus mechanism, as an NG tube. He has left-side d weakness. According to vascular surgery the plan is to proceed with carotid endarterectomy tomorrow. He had an echocardiogram that showed a preserved systolic function with moderate mitral regurgitation and moderate aortic stenosis with a peak gradient of 35 mmHg. December 23: The patient is hemodynamically stable, continues to be in sinus mechanism. He is scheduled to undergo carotid endarterectomy today. She continues to have left-sided weakness. There is no evidence of atrial fibrillation or findings to suggest acute ischemia. He continues to have an NG tube. Medications: Aspirin, Lipitor 80 mg daily, Lexapro 5 mg daily, insulin, metoprolol 50 mg twice a day, Brilinta 90 mg twice a day,Zetia 10 mg daily,Farxiga 5 mg daily PHYSICAL EXAMINATION: Blood pressure 116/60 heart rate 78 LUNGS: Clear to auscultation HEART: Regular rate and rhythm, S1, S2. No S3. systolic ejection murmur 2/6 ABDOMEN: Soft, nontender, no organomegaly EXTREMETIES: No edema LAB: Potassium 4.2, BUN 20, creatinine 0.65, hemoglobin 15.2 IMPRESSION: 1. Acute CVA 2. History of CAD stable with no evidence of acute ischemia 3. Moderate aortic stenosis 4. Obstructive carotid disease 5. History of diabetes 6. History of hyperlipidemia PLAN: 1. Continue supportive care 2. Plan for carotid endarterectomy today 3. Continue other treatment 4. Depending on his progress further recommendations will be made Objective - Vital Signs Vital signs: Vital Signs Temp 97 F L 12/23/22 04:00 Pulse 78 12/23/22 07:00 Resp 21 12/23/22 07:00 BP 116/61 12/23/22 07:00 Pulse Ox 96 12/23/22 07:00 FiO2 Intake & Output 12/22/22 12/23/22 12/23/22 18:59 06:59 18:59 Intake Total 1485 1320 75 Output Total 1600 500 400 Balance -115 820 -325 Weight 75 kg Intake: IV 825 900 75 Sodium Chloride 0.9% 1, 825 900 75 000 ml @ 75 mls/hr IV . [id number] [facility] Rx#:[id number] Tube Feeding 660 360 Other 60 Output: Urine 1600 500 400 Other: Voiding Method External Catheter External Catheter - Labs CBC & Chem 7: 12/23/22 05:33 12/23/22 05:33 Labs: Abnormal Lab Results - Last 24 Hours (Table) 12/22/22 12/22/22 12/22/22 Range/Units 11:48 16:53 23:26 Creatinine (0.66-1.25) mg/dL Glucose (74-99) mg/dL POC Glucose (mg/dL) 137 H 152 H 141 H (70-110) mg/dL 12/23/22 Range/Units 05:33 Creatinine 0.65 L (0.66-1.25) mg/dL Glucose 122 H (74-99) mg/dL POC Glucose (mg/dL) (70-110) mg/dL
[2022-12-23] MEDS: EZETIMIBE 10 MG TAB PO SCH (08:43)
[2022-12-23] MEDS: ASPIRIN 81 MG PO SCH (08:43)
[2022-12-23] MEDS: METOPROLOL TARTRATE 50 MG TAB PO SCH ×2 (08:44→20:34)
[2022-12-23] MEDS: ACETAMINOPHEN TAB 325 MG TAB PO PRN (08:44)
[2022-12-23] MEDS: HEPARIN SODIUM,PORCINE/PF 5,000 UNIT/0.5 ML SYRINGE SQ SCH ×2 (08:44→21:48)
[2022-12-23] MEDS: ESCITALOPRAM 5 MG TAB PO SCH (08:44)
[2022-12-23] MEDS: FLUCONAZOLE ORAL SUSP 1,400 MG/35 ML BOTTLE PO SCH (08:45)
[2022-12-23] MEDS ORDERED: LIDOCAINE 2% (PF) 20 MG/ML 5 ML VIAL ONE (09:18)
[2022-12-23] MEDS ORDERED: LIDOCAINE 4% LTA KIT (4 ML) TOPICAL ONE (09:55)
[2022-12-23] MEDS ORDERED: fentaNYL (PF) 50 MCG/ML 2 ML AMP ONE (09:55)
[2022-12-23] MEDS ORDERED: GLYCOPYRROLATE 0.2 MG/ML 2 ML VIAL ONE (09:55)
[2022-12-23] MEDS ORDERED: PROPOFOL 10 MG/ML 20 ML VIAL IV ONE (09:55)
[2022-12-23] MEDS ORDERED: PHENYLEPHRINE-0.9% NACL SYG 1,000 MCG/10 ML SYRINGE ONE (09:55)
[2022-12-23] MEDS ORDERED: NEOSTIGMINE 1 MG/ML 10 ML VIAL ONE (09:55)
[2022-12-23] MEDS ORDERED: HEPARIN SODIUM,PORCINE 10,000 UNIT/ML 1 ML VIAL ONE (09:55)
[2022-12-23] MEDS ORDERED: PROTAMINE SULFATE 10 MG/ML 5 ML VIAL IV ONE (09:55)
[2022-12-23] MEDS ORDERED: ROCURONIUM 10 MG/ML (5 ML VIAL) IV ONE (09:55)
[2022-12-23] MEDS ORDERED: ePHEDrine 50 MG/ML 1 ML VIAL ONE (09:55)
[2022-12-23] MEDS ORDERED: LIDOCAINE 2% INJ 20 MG/ML (2 ML VIAL) ONE (09:55)
[2022-12-23] MEDS ORDERED: IV FLUID CONTINUATION 1,000 ML IV ONE (10:06)
--- NOTE | 2022-12-23 10:07 | P.PN ---
Subjective Progress Note Date: 12/23/22 This is a 67-year-old male gentleman seen today in consultation in the intensive care unit. He has a history of chronic and ongoing tobacco dependence, hyperlipidemia, hypertension, diabetes mellitus, type II, coronary disease with previous coronary bypass grafting and stent placement. Recent admission in October 2022 for an acute ischemic stroke with left hemiparesis. MARISELA revealed no cardiac source for CVA. CT angiogram revealed a right internal carotid artery stenosis of 80-85% and a left internal carotid artery stenosis of 85%. He was to follow with vascular surgery in the outpatient setting. Unfortunately he presented back here to the hospital on 12/16/2022 with a one-day history of incr easing weakness slurred speech and left-sided weakness. MRI of the brain revealed acute ischemic changes interval finding within the right brainstem and to a lesser degree left brain stem. Residual signal abnormality in the right occipital lobe considered to be the old ischemic change. Angiography revealed calcified and noncalcified plaque at the carotid bifurcations with at least 70% stenosis on the right and 90% stenosis on the left. No evidence of dissection. No evidence of intracranial high-grade stenosis or intracranial aneurysm. He was transferred to the intensive care unit for closer monitoring throughout the night. He is seen today in consultation in the ICU. He is currently sitting up in bed. He is quite aphasic. Congested. Nasogastric tube is in place. He is being nourished with Glucerna at 60 ML's per hour. He has 0.9 normal saline at 75 ML's per hour. He is currently maintaining good O2 saturations in the 90s on room air. Aspiration precautions. His left side is still quite weak able to raise his left arm but his hand is weak. Not able to raise his left leg. White count 9.3. He was 16.9. Platelets 199. Sodium 136. Potassium 3.7. Bicarb 15. BUN 11. Creatinine 0.57. Glucose 112. He is continued on aspirin and Brilinta. Heparin for DVT prophylaxis. The patient is seen today 12/20/2022 in follow-up in the intensive care unit. He is currently sitting up in bed. Awake, alert. Maintaining O2 saturations in the 90s on 3 L/m per nasal cannula. He's been afebrile. Hemodynamically stable. Chest x-ray reveals patchy left basilar atelectasis. White count 10.3. Hemoglobin 16.5. Platelets 189. Sodium 136. Potassium 4.0. Bicarb 15. BUN 14. Creatinine 0.62. Glucose 144. Remains a phasic. Remains with left-sided weakness. Nasogastric tube in place receiving Glucerna 1.2 at a rate of 60 ML's per hour. Receiving free water flushes. 12/21/2022, the patient is essentially unchanged. He does have flaccid paralysis of the left upper extremity. Is able to move his left toes. Unable to have significant movement of the left lower extremity. There is facial asymmetry with left facial weakness. Unable to swallow and the patient is an NG tube in place and the patient is receiving enteral feeding for social support and currently is on glucerna at the rate of 60 mL an hour. He is also on accommodation of aspirin and Brilinta. The patient is hemodynamically stable. He is doing self suctioning. He has a congested cough. Is able to suction is AT 3. NO SIGNS OF ANY RESPIRATORY DISTRESS. HE IS ON OXYGEN AT 3 L/M NASAL CANNULA. THE WHITE COUNT 12.6 WITH A HEMOGLOBIN OF 16.6 and a platelet count is at 195. BUN is at 40 with a creatinine of 0.6 and the sodium levels of 138. He is now having any episodes of hyper or hypotension. We're allowing somewhat higher blood pressures based on his underlying recent CVA. He is on Levemir insulin 8 units and is also on tradjenta and farxiga , and he is also normal saline at rate of 75 mL an hour. Cardiac rhythm remained sinus. No other significant events overnight. Neurology and vascular surgery of both on the case regarding his carotid artery stenosis bilaterally. The chest x-ray from today is essentially clear. He has a thoracotomy scar related to previous by pass surgery. He does smoke and his current comorbid conditions include hypertension, hyperlipidemia, diabetes mellitus type 2, coronary artery disease with previous bypass surgery and previous coronary stenting. 12/22/2022, neurologically the patient is awake. Continues to have flaccid paralysis of the left upper extremity, there is some motor function, minimal motor activity in the left lower extremity. The patient is scheduled to undergo a carotid endarterectomy tomorrow by vascular surgery. He has a congested cough. At the breathing is nonlabored. He is on oxygen at 3 L. He has an NG tube in place for enteral feeding and nutritional support and the patient is currently receiving Glucerna at the rate of 60 mL an hour. The patient is tolerating his nutrition without having any major difficulties. Hemodynamically stable. Blood pressure stable. Cardiac rhythm is sinus. His blood sugars are also under adequate control. His comorbid conditions include hypertension, hyperlipidemia diabetes mellitus type 2 and he has undergone previous coronary artery bypass surgery and previous coronary stenting. Blood work from today shows a WBC count of 15.7 with a hemoglobin of 16.1 and a platelet count of 211. Sodium is at 139, BUN is at 17 with a creatinine of 0.6 and the serum bicarbs at 21. IV fluids are in the form of normal saline at the rate of 75 mL an hour. He has a Acosta catheter in place. Neurology is also on the case. I do not appreciate any major change in his neurologic function since yesterday. Echocardiogram was also completed yesterday and it showed normal LV function, moderate mitral calcification, calcification of the aortic valve with moderate degree of aortic stenosis. The peak gradient across the aortic valve was 35 mmHg. The patient remains on a combination of aspirin and Brilinta. The patient is also on Lipitor. As mentioned earlier, the patient has failed Plavix. The patient is known to have severe bilateral carotid artery stenosis based on the most recent CTA and the patient has 70% right ICA and 90% left ICA. Possibility of a cardioembolic stroke cannot be completely ruled out. The patient has bilateral ischemic stroke involving the point on midregion right more than left and a small focus over the right temporal region. 12/23/2022, the patient is neurologically stable. The patient will be taken to the operating room for a right carotid endarterectomy and the PEG tube insertion. Note that the patient was unable to swallow following his CVA and the patient was receiving enteral feeding through his NG tube and the feeding was placed on hold in preparation for today's surgery. No loss neurological deficits for now. The patient was hemodynamically stable. Echo cardiogram showed a normal LV function. The patient's cardiac rhythm is sinus and the patient was maintained on a combination of aspirin and Brilinta. On today's blood work, the white cell cause of 9.8 with a hemoglobin of 15.2 and a platelet count of 182. Sodium is at 141, BUN is at 20 with a creatinine of 0.6 and a potassium level is at 4.2. Objective - Vital Signs Vital signs: Vital Signs Temp 97 F L 12/23/22 04:00 Pulse 78 12/23/22 07:00 Resp 21 12/23/22 07:00 BP 116/61 12/23/22 07:00 Pulse Ox 96 12/23/22 07:00 FiO2 Intake & Output 12/22/22 12/23/22 12/23/22 18:59 06:59 18:59 Intake Total 1485 1320 75 Output Total 1600 500 400 Balance -115 820 -325 Weight 75 kg Intake: IV 825 900 75 Sodium Chloride 0.9% 1, 825 900 75 000 ml @ 75 mls/hr IV . [id number] [facility] Rx#:[id number] Tube Feeding 660 360 Other 60 Output: Urine 1600 500 400 Other: Voiding Method External Catheter External Catheter - Exam GENERAL EXAM: Alert, aphasic 67-year-old male, on room air, fairly comfortable in no apparent distress. Patient has an NG tube in place and the patient is currently on 3 L of action by nasal cannula HEAD: Normocephalic. EYES: Normal reaction of pupils, equal size. NOSE: Nasogastric tube secured in place. Clear with pink turbinates. THROAT: No erythema or exudates. NECK: No masses, no JVD. CHEST: No chest wall deformity. LUNGS: Equal air entry with bilateral scattered rhonchi. CVS: S1 and S2 normal with no audible murmur, regular rhythm. ABDOMEN: No hepatosplenomegaly, normal bowel sounds, no guarding or rigidity. SPINE: No scoliosis or deformity SKIN: No rashes CENTRAL NERVOUS SYSTEM: Aphasic, tone is normal in all 4 extremities. The patient has left upper extremity paralysis and the patient has facial asymmetry with left facial weakness. He does have dysphagia. His speech is slurred and the late yet he is able to comprehend and follow commands EXTREMITIES: Left upper and lower extremity weakness. There is no peripheral edema. Peripheral pulses are intact. - Labs CBC & Chem 7: 12/23/22 05:33 12/23/22 05:33 Labs: Abnormal Lab Results - Last 24 Hours (Table) 12/22/22 12/22/22 12/22/22 Range/Units 11:48 16:53 23:26 Creatinine (0.66-1.25) mg/dL Glucose (74-99) mg/dL POC Glucose (mg/dL) 137 H 152 H 141 H (70-110) mg/dL 12/23/22 Range/Units 05:33 Creatinine 0.65 L (0.66-1.25) mg/dL Glucose 122 H (74-99) mg/dL POC Glucose (mg/dL) (70-110) mg/dL Assessment and Plan Plan: Acute ischemic stroke (bilateral pontine region and right > left) and felt small focus over the right temporal region. Etiology seems embolic in nature. Has severe bilateral carotid stenosis on most recent CTA in 11/14 and on 12/18/2022 in which has right ICA 70% while left is 90% stenosis. Rule out any cardioembolic.. Failed Plavix. Currently on Brilinta, atorvastatin and aspirin, neurologically unchanged since yesterday and the patient continues to have significant motor deficits with left facial weakness, swallow deficit and left upper extremity paralysis and extreme left lower extremity weakness. Reevaluation on 12/23/2022 showed that the patient's neurologic functions are unchanged and the patient is going to undergo a right carotid endarterectomy and effective is to follow as the patient has dysphagia. Recent stroke in October 2022 in the right occipital region with left-sided weakness, slurred speech and facial droop, mainly resolved Bilateral carotid stenosis and calcified plaque at the carotid bifurcations with at least 70% stenosis on the right and 90% stenosis on the left History of coronary artery disease with previous stent placement and coronary artery bypass grafting Hypertension Hyperlipidemia Diabetes mellitus Chronic and ongoing tobacco dependence Hearing disorder Dysphagia secondary to CVA and the patient was receiving enteral feeding through a NG tube. PEG tube is to follow Plan: Right carotid endarterectomy today PEG tube insertion is to follow She'll feeds are on hold Continued on statins, Brilinta, aspirin Continued on aspiration precautions x-ray from yesterday was essentially clear Currently stable and the patient is currently on 3 L of oxygen by nasal cannula We will continue to follow Neurology and vascular surgery both on the case. We'll continue to follow.
[2022-12-23] MEDS ORDERED: SODIUM CHLORIDE 0.9% 50 ML with ceFAZolin 2,000 MG IV ONE ×2 (10:30)
--- NOTE | 2022-12-23 10:34 | P.OP ---
Date of Procedure: 12/23/22 Preoperative Diagnosis: Routine calorie malnutrition CVA Postoperative Diagnosis: Same Procedure(s) Performed: EGD with PEG tube placement Anesthesia: AMY Surgeon: Cody Moyer Pathology: none sent Condition: stable Disposition: PACU Description of Procedure: The patient's placed on the OR table supine position. He received general endotracheal tube anesthesia. Next the gastroscope placed oropharynx passed in the esophagus and stomach. There is no evidence of any outlet obstruction. Stomach was insufflated with air. The light reflux seen the anterior abdominal wall. The abdomen was prepped and draped usual fashion. The skin was incised. And the needles placed and stomach under direct visualization. The needle was snared. And the wires placed through the needle and the wire was snared and brought the oropharynx. The PEG tube was placed over top the wire brought down to the stomach. The PEG tube was secured. At the 3 cm sally. The one-piece bolster was used. Patient tolerated procedure well.
[2022-12-23] MEDS ORDERED: LACTATED RINGERS 1,000 ML IV ONE ×2 (11:00→13:03)
[2022-12-23] MEDS ORDERED: HEPARIN SODIUM (1,000 UNIT/ML) 2,000 UNIT in SODIUM CHLORIDE 0.9% 1,000 ML IRRIGATION ONE (11:01)
[2022-12-23] MEDS ORDERED: ceFAZolin 2,000 MG in SODIUM CHLORIDE 0.9% 500 ML IRRIGATION ONE (11:05)
[2022-12-23] MEDS ORDERED: GELATIN SPONGE,ABSORB (LARGE) 1 EACH SPONGE TOPICAL ONE (12:01)
[2022-12-23] MEDS ORDERED: THROMBIN (BOVINE) 5,000 UNIT VIAL TOPICAL ONE ×2 (12:01)
--- NOTE | 2022-12-23 12:36 | P.OP ---
Date of Procedure: 12/23/22 Description of Procedure: Preoperative Diagnosis: right Internal carotid artery stenosis, symptomatic Postoperative Diagnosis: Same Procedure: right carotid endarterectomy with patch angioplasty Anesthesia: GET Surgeon: Rama Acosta DO Estimated Blood Loss (ml): [50 mL] IV Fluids: [see records] Urine Output: [600 mL] Specimen: [right carotid plaque] Condition: stable Disposition: PACU Findings and indications: [patient is a 67-year-old male with a hematocrit internal carotid artery stenosis as well as other evidences of stroke with a brainstem stroke. He is found to have high-grade right internal carotid artery stenosis and discussion was had regarding intervention versus medical management. They elected for intervention. Given his overall picture, it was discussed that this may be beneficial in decreasing future strokes however this time he has relatively flaccid motor of his left, and this may not make significant difference. Regardless he elected to undergo intervention. At the same time he also underwent a PEG tube due to failed swallow studies.] Procedure in detail: After written informed consent was obtained the patient all risks benefits and competitions were described the patient is brought to the operative suite and laid in a supine position. The area of the neck was prepped and draped in usual sterile fashion after appropriate anesthetic was performed per the anesthesiologist. A timeout was performed in normal fashion antibiotics were administered prior to incision. An oblique incision was then created just anterior to the sternocleidomastoid musculature with a 10 blade scalpel and dissection was carried down to the carotid sheath. The carotid sheath was then entered after facial vein was located and suture ligated in normal fashion. The common carotid, internal carotid, external carotid and superior thyroid arteries were located and dissected free in a meticulous fashion circumferentially and controlled with vessel loops. Attention was then placed to locating the vagus nerve as well as hypoglossal nerve which were both spared. Once controlled, patient was administered heparin and followed with ACTs for appropriate heparinization. Once ACT was appropriate, the proximal and distal aspects of the dissection were then controlled with vascular clamps. Arteriotomy was then created with 11 blade scalpel and extended with Ayala Callahan scissors. the cerebral oximeter was used and monitored. There was no significant decrease in oxygenation. No shunt was required. An endarterectomy was then performed with a Parker elevator. The plaque was transected proximally and then feathered at the distal aspect of the internal carotid artery and removed. The area was copiously irrigated with heparinized saline and all free debris was removed. A 0.8 x 8 cm bovine pericardial patch was then chosen and patch angioplasty was performed with 6-0 Prolene suture in a running fashion. Prior to last sutures being placed the inflow was released flushing any free debris out of the patch. This was reclamped and the internal carotid artery was released revealing good brisk flow and was once again reclamped. The external carotid and superior thyroid artery were then released followed by the common carotid artery to allow any free debris to be flushed into the external system. Final sutures were placed and secured. Internal carotid artery control was then released. Good pulsatile flow was noted through the patch and a Doppler was utilized demonstrating good brisk flow into the internal, external carotid arteries without any signs of obstruction. Hemostasis was then assured with interrupted sutures of 6-0 Prolene as well as thrombin and Gelfoam. A 10-Angolan GLENDA drain was then placed in normal fashion and secured with 3-0 nylon suture. The incision was then closed in a multilayer fashion after hemostasis was assured. The skin was then cleansed and dressings were placed. Patient tolerated the procedure well. He appeared to be back to his baseline with ability to mildly wiggle his left toes, this is exactly the same as his preoperative finding Patient was then sent to PACU for recovery.
[2022-12-23 13:21] LABS: Glucose,Whole Blood 141 mg/dL (70-110)
--- NOTE | 2022-12-23 14:12 | P.ANPRN ---
Procedure Note - Anesthesia - Invasive Line Right Arterial Line Time Out Performed: Yes ([id number]) Date of Procedure: 12/23/22 Time of Procedure: 09:16 Location of Patient: PreOp ([place] [facility] ICU) Arterial Line Location: Radial (right) Ultrasound Used: No Purpose - Visualization and Identification of Vasculature: No Needle Guage: 20g Image Stored and Saved: Yes Narrative: Central line placement per sterile protocol utilized.
[2022-12-23 14:26] LABS: Glucose,Whole Blood 130 mg/dL (70-110)
[2022-12-23 17:50] LABS: Glucose,Whole Blood 124 mg/dL (70-110)
[2022-12-23] MEDS: PHENYLEPHRINE 40 MG in SODIUM CHLORIDE 0.9% 250 ML IV SCH (19:18)
[2022-12-23] MEDS: ATORVASTATIN 80 MG TAB PO SCH (20:34)
[2022-12-23] MEDS: INSULIN DETEMIR (LEVEMIR) 100 UNIT/ML SYR SQ SCH (21:48)
[2022-12-23 23:27] LABS: Glucose,Whole Blood 135 mg/dL (70-110)
[2022-12-24] MEDS: MORPHINE SULFATE 2 MG/ML SYRINGE IVP PRN ×5 (00:10→21:10)
[2022-12-24] MEDS: Icosapent Ethyl [Icosapent Ethyl] 1 GM Capsule PO SCH ×2 (04:42→17:05)
[2022-12-24] MEDS: PANTOPRAZOLE 40 MG TABLET PO SCH (04:42)
[2022-12-24 05:44] LABS: Glucose,Whole Blood 117 mg/dL (70-110)
[2022-12-24] MEDS: SODIUM CHLORIDE 0.9% 1,000 ML IV SCH ×2 (05:54→14:31)
[2022-12-24] MEDS: INSULIN ASPART (NovoLOG) 100 UNIT/ML VIAL SQ SCH ×3 (05:55→18:07)
--- NOTE | 2022-12-24 07:26 | P.PN ---
Subjective Progress Note Date: 12/23/22 HISTORY OF PRESENT ILLNESS This is a 67-year-old male with past medical history of diabetes mellitus type 2, hypertension, hyperlipidemia, history of AK in 2010 status post stent of the circumflex, known to have triple-vessel coronary artery disease with totally occluded collateralized right coronary artery, status post coronary artery bypass grafting using the left internal mammary artery to the left anterior descending artery, left radial artery from the aorta to the obtuse marginal artery, reverse saphenous vein graft from the aorta to the posterior descending artery, overall preserved left ventricular function, mild aortic stenosis, mild COPD with preoperative FEV1 63% of predicted, obesity, umbilical and epigastric hernia. Patient presented to the hospital due to increasing weakness and sl urred speech with history of a stroke a month ago that affected his speech and the left side of his body and was discharged on 11/08. During the hospitalization, Echocardiogram revealed EF of 55-60%, mild LVH, moderate mitral annular calcification, trace mitral regurgitation, moderate aortic stenosis, mild tricuspid regurgitation. Patient underwent MARISELA with Dr. Mckeon which revealed no cardiac source for CVA. Mild mitral and tricuspid regurgitation. Moderate aortic stenosis with mean gradient of 23 mmHg. Patient was evaluated by therapies with recommendations for home. Cardiology planned for outpatient stress testing with Dr. Mckeon and patient was to follow-up with vascular surgery regarding bilateral carotid stenosis. Patient really has had completely cover of his left-sided weakness and slurred speech. Family noticed that patient was having some difficulty with balance and walking and he started complaining of a headache and pressure behind his eye and not feeling well in general. He also was noted have incontinence and did not realize he was incontinent. Then he developed significant weakness on the left side and slurred speech and difficulty swallowing and presented to [facility] for further evaluation. Patient presents to the hospital with increased weakness and slurred speech that had progressed over the last 48 hours along with difficulty ambulating. Initial blood pressure was 109/89. WBC 11.6, hemoglobin 16.4, platelet count 218. Electrolytes are normal, creatinine 0.68. Blood sugar 192. Troponin negative. EKG sinus rhythm with no acute ST changes. CAT scan of the brain revealed no acute findings. Consult in place with vascular surgery with plans for carotid endarterectomy during this hospitalization, consult with cardiology for surgical clearance. 12/17: Patient is seen today on the cardiac stepdown unit. Patient has been seen by cardiology and cleared for carotid endarterectomy knowing that he is at intermediate risk for perioperative complications. Patient was seen by speech therapy and recommended nothing by mouth patient unable to pass a bedside swallow evaluation by speech. Patient is not safe to undergo modified barium swallow at this time. We will plan to place NG tube for patient to get his medications. Patient is also been seen by PT OT. He continues to have difficulty weakness on the left side along with expressive aphasia. Patient has been afebrile, heart rate 91, blood pressure 148/70, pulse ox 90% on room air. Blood sugars are running between 139-180. Neurology has discontinued Plavix is thought to have failed treatment and started Brilinta along with aspirin 81 mg daily, Lipitor 81 mg daily plan for permissive hypertension for the next 24 hours. Carotid ultrasound revealed less than 50% stenosis of the right carotid bifurcation, 50-69% stenosis on the left. 12/18: Patient did have an NG tube placement yesterday because the patient is not able to swallow anything at this point in time, due to his acute ischemic stroke in the right brainstem unless to the left breast and, with an old right occipital stroke, patient will be maintained on Brilinta 90 mg orally twice every day. Aspirin 81 mg once every day, and maximum dose of statin, neurology as well as vascular surgeon is following, patient will require intervention of his significant carotid artery stenosis, patient also is very noncompliant with medications treatment and follow-ups, we will continue to monitor the patient very closely, his daughters were at the bedside and updated about his current condition his prognosis overall is very guarded. 12/19: Patient was moved into the intensive care unit for better monitoring due to his bilateral brainstem stroke right more than left and prior history of right occipital infarct, currently on Brilinta 90 mg twice every day, baby aspirin 81 mg once every day, atorvastatin 80 mg once every day, Zetia 10 mg every day, neurology swallowing, continue tube feeding, continue NG tube, aspiration precautions, discussed with his daughter and his ode status and they decided on NO CODE for now and they will discuss with vascular the options of surgical intervention and the risks vs benefits at this stage of his illness 12/20: Patient is about the same is laying down in bed he appears to be weaker today, he continues to have some coughing, he is not able to handle his secretions, currently has an NG tube in place, he is doing his own suctioning of his oral secretions, he has bee on tube feeding, we will continue to monitor the patient very closely, according to the family the patient is very depressed we will start the patient on Lexapro 5 mg per NG tube once every day. 12/21: Patient is sitting up in bed is about the same, he denies any chest pain, he continues to be aphasic, he continues to have significant issues with handling his secretions, patient was started yesterday on Lexapro 5 mg per NG tube for his depression, the plan is to continue current treatment plan, the family will decide on the vascular surgery I believe he is on standby for carotid endarterectomy on 12/22: Patient is about the same he is not doing better, he continues to have an NG tube in place, this is not a long-term solution at this time, patient will require to have a PEG tube placement for long-term tube feeding, and medication use. Patient is supposed to go for a carotid endarterectomy tomorrow morning, patient has been followed by multiple specialties prognosis very guarded patient is no code at this time he will require long-term care facility post discharge from the hospital. 12/23: Patient is status post right carotid endarterectomy as well as PEG tube placement is laying down in bed in no apparent distress, he denies any chest pain, shortness breath, he continues to be somewhat aphasic, patient appears to be a bit better today than yesterday, the plan is to transition the patient to extended care facility for physical therapy rehabilitation, he continues to be weaker on the left side, more movement in the left lower extremity than the left upper extremity. REVIEW OF SYSTEMS Constitutional: No fever, no chills, no night sweats. No weight change. Reports left weakness. No daytime sleepiness. HEENT: Reports no headache. No blurred vision or double vision, no loss of vision. No loss of Hearing, no ringing in the ears, no dizziness. No nasal drainage or congestion. No epistaxis. No sore throat. Lungs: No shortness of breath, cough, no sputum production. No wheezing. Cardiovascular: No chest pain, no lower extremity edema. No palpitations. No paroxysmal nocturnal dyspnea. No orthopnea. No lightheadedness or dizziness. No syncopal episodes. Abdominal: No abdominal pain. No nausea, vomiting. No diarrhea. No constipa tion. No bloody or tarry stools. No loss of appetite. Genitourinary: No dysuria, increased frequency, urgency. No urinary retention. Musculoskeletal: No myalgias. Noted muscle weakness left side, noted gait dysfunction, no frequent falls. Chronic back pain, Integumentary: No wounds, no lesions. No rash or pruritus. No unusual bruising. No change in hair or nails. Neurologic: Reports slurred speech and weakness. Noted facial droop. Noted change in mentation. No head injury. Psychiatric: positive for depression. No anxiety. No mood swings. Endocrine: No abnormal blood sugars. No weight change. No excessive sweating or thirst. No cold intolerance. PHYSICAL EXAMINATION Gen: This is a 63-year-old male. He is sitting up in bed and appears to be comfortable and in no acute distress. Family members at bedside. HEENT: Head is atraumatic, normocephalic. Pupils equal, round. Sclerae is anicteric. Cortisone place to the right internal jugular. NECK: Supple. No JVD. No lymphadenopathy. No thyromegaly. LUNGS: Diminished bilaterally but otherwise clear to auscultation. No wheezes or rhonchi. No intercostal retractions. HEART: Regular rate and rhythm. 2/6 systolic ejection murmur. ABDOMEN: Soft. Bowel sounds are present. No masses. No tenderness. Acosta ca theter draining clear olis urine. EXTREMITIES: No pedal edema. No calf tenderness. NEUROLOGICAL: Patient is awake, alert, weakness on the left, aphasia. ASSESSMENT AND PLAN: 1. Post operative day #0 status post right carotid endarterectomy And PEG tube placement. Continue treatment as per vascular surgery. Start tube feeding tomorrow morning. 2. Acute ischemic CVA in the right brain stem and to a lesser degree in the left brain stem. we will continue with ASA 81 mg per NGT , Brilinta 90 mg NGT bid and Atorvastatin 80 mg , Zetia 10 mg. 3. Acute ischemic stroke with left hemiparesis . Continue current treatment plan. 4. Bilateral internal carotid artery stenosis. Post carotid endarterectomy. 5. Dysphagia Due to brainstem stroke status post PEG tube placement 6. Coronary artery disease status post 3 vessel CABG details above as well as previous stenting of circumflex. Continue patient on aspirin, Lipitor and zetia 7. Hypertension and hypertensive cardiovascular disease. Continue Lopressor 50 mg twice daily, we will continue to monitor BP very closely. 8. Hyperlipidemia. Continue Lipitor 80 mg daily, Zetia 10 mg daily. 9. Mild COPD, stable without exacerbation 10. Diabetes mellitus type 2. Continue patient on Levemir 15 units daily, Farxiga 5 mg daily, Tradjenta 5 mg daily, NovoLog insulin scale before meals and at bedtime. 11. Moderate aortic stenosis. Cardiology is following 12. GI prophylaxis. Protonix 40 mg daily. 13. DVT prophylaxis. Heparin 5000 units SC q12 hours. 14. Prognosis is very guarded. 15. he will require ECF post hospitalization 16. NO CODE status discussed with patient's and his daughter at the bedside 17. Depression. on Lexapro 5 mg daily. 18. Overall prognosis is very guarded. Objective - Vital Signs Vital signs: Vital Signs Temp 97 F L 12/23/22 08:00 Pulse 96 12/23/22 12:00 Resp 20 12/23/22 09:00 BP 131/96 12/23/22 09:00 Pulse Ox 95 12/23/22 09:00 FiO2 Intake & Output 12/22/22 12/23/22 12/23/22 18:59 06:59 18:59 Intake Total 1485 1320 1927 Output Total 0110 149 3830 Balance -115 820 677 Weight 75 kg Intake: IV 065 498 1755 Sodium Chloride 0.9% 1, 825 900 375 000 ml @ 75 mls/hr IV . [id number] [facility] Rx#:[id number] Tube Feeding 660 360 Other 60 Output: Urine 7714 568 3613 Estimated Blood Loss 50 Other: Voiding Method External Catheter External Catheter External Catheter - Labs CBC & Chem 7: 12/23/22 05:33 12/23/22 05:33 Labs: Abnormal Lab Results - Last 24 Hours (Table) 12/22/22 12/22/22 12/23/22 Range/Units 16:53 23:26 05:33 Creatinine 0.65 L (0.66-1.25) mg/dL Glucose 122 H (74-99) mg/dL POC Glucose (mg/dL) 152 H 141 H (70-110) mg/dL
--- NOTE | 2022-12-24 07:59 | P.PN ---
Subjective Progress Note Date: 12/24/22 PROGRESS NOTE The patient is a 67-year-old male with a known history of CAD, diabetes, hyperlipidemia, history of carotid disease who presented with a CVA. He is awake, alert. He has an NG tube. He is in sinus mechanism and hemodynamically stable. He has been evaluated by the surgical team regarding carotid revascularization. On presentation he was found to have right brainstem infarct. He underwent a MARISELA in October that showed a preserved systolic function with moderate aortic stenosis and no evidence of shunting. According to the nursing staff the decision about surgery is awaiting family consultations. December 22: The patient continues to be in sinus mechanism, as an NG tube. He has left-side d weakness. According to vascular surgery the plan is to proceed with carotid endarterectomy tomorrow. He had an echocardiogram that showed a preserved systolic function with moderate mitral regurgitation and moderate aortic stenosis with a peak gradient of 35 mmHg. December 23: The patient is hemodynamically stable, continues to be in sinus mechanism. He is scheduled to undergo carotid endarterectomy today. She continues to have left-sided weakness. There is no evidence of atrial fibrillation or findings to suggest acute ischemia. He continues to have an NG tube. December 24: He underwent right carotid endarterectomy yesterday, he appears to be more awake with some improvement in the movement on the left side. He is in sinus mechanism and hemodynamically stable. There is no evidence of atrial fibrillation. He had the PEG tube placed. The plan is to transition for extended care facility for rehab. Medications: Aspirin, Lipitor 80 mg daily, Lexapro 5 mg daily, insulin, metoprolol 50 mg twice a day, Brilinta 90 mg twice a day,Zetia 10 mg daily,Farxiga 5 mg daily PHYSICAL EXAMINATION: Blood pressure 133/50 heart rate 80 Neck: Dressing on the right side. Face: Right side droop noted. Neurologically some improvement in the left upper extremity movement LUNGS: Clear to auscultation HEART: Regular rate and rhythm, S1, S2. No S3. systolic ejection murmur 2/6 ABDOMEN: Soft, nontender, no organomegaly, PEG tube in place EXTREMETIES: No edema LAB: Pending IMPRESSION: 1. Acute CVA with some improvement in the motion 2. History of CAD stable with no evidence of acute ischemia 3. Moderate aortic stenosis 4. Obstructive carotid disease, status post right carotid endarterectomy 5. History of diabetes 6. History of hyperlipidemia PLAN: 1. Continue present treatment 2. Increase activity as tolerated 3. Plan for outpatient rehab Objective - Vital Signs Vital signs: Vital Signs Temp 97.9 F 12/24/22 04:00 Pulse 84 12/24/22 07:00 Resp 19 12/24/22 07:00 BP 118/71 12/24/22 07:00 Pulse Ox 95 12/24/22 07:00 FiO2 Intake & Output 12/23/22 12/24/22 12/24/22 18:59 06:59 18:59 Intake Total 2477 975 Output Total 1989 114 Balance 487 -170 Weight 75 kg 76 kg Intake: IV 2477 975 Sodium Chloride 0.9% 1, 675 975 000 ml @ 75 mls/hr IV . [id number] [facility] Rx#:[id number] Output: Drainage 10 10 Right Neck 10 10 Urine 1920 1135 Estimated Blood Loss 60 Other: Voiding Method External Catheter Indwelling Catheter ABP, PAP, CO, CI - Last Documented Arterial Blood Pressure 133/50 - Labs CBC & Chem 7: 12/23/22 05:33 12/23/22 05:33 Labs: Abnormal Lab Results - Last 24 Hours (Table) 12/23/22 12/23/22 12/23/22 Range/Units 13:18 14:24 17:49 POC Glucose (mg/dL) 141 H 130 H 124 H (70-110) mg/dL 12/23/22 12/24/22 Range/Units 23:26 05:42 POC Glucose (mg/dL) 135 H 117 H (70-110) mg/dL
[2022-12-24 08:13] LABS: Basophils # (A) 0.1 k/uL (0-0.2); Basophils % (A) 1 %; Eosinophils # (A) 0.3 k/uL (0-0.7); Eosinophils % (A) 3 %; HCT 42.3 % (39.0-53.0); Lymphocytes # (A) 1.3 k/uL (1.0-4.8); Lymphocytes % (A) 12 %; MCH 31.5 pg (25.0-35.0); MCHC 33.1 g/dL (31.0-37.0); MCV 95.2 fL (80.0-100.0); Mean Platelet Volume 11.3; Monocytes # (A) 0.6 k/uL (0-1.0); Monocytes % (A) 5 %; Neutrophils # (A) 8.6 k/uL (1.3-7.7); Neutrophils % (A) 78 %; Platelet Count 198 k/uL (150-450); RBC 4.44 m/uL (4.30-5.90); RDW 14.3 % (11.5-15.5); WBC 11.1 k/uL (3.8-10.6)
[2022-12-24 08:35] LABS: African American GFR (CKD) >90 (>60 ml/min/1.73 sqM); Anion Gap 6 mmol/L; Blood Urea Nitrogen 11 mg/dL (9-20); Calcium 7.8 mg/dL (8.4-10.2); Carbon Dioxide 24 mmol/L (22-30); Chloride 107 mmol/L (98-107); Glucose 127 mg/dL (74-99); Magnesium 1.9 mg/dL (1.6-2.3); Non-African American GFR(CKD) >90 (>60 ml/min/1.73 sqM); Potassium 3.9 mmol/L (3.5-5.1); Sodium 137 mmol/L (137-145)
[2022-12-24] MEDS: ESCITALOPRAM 5 MG TAB PO SCH (09:54)
[2022-12-24] MEDS: EZETIMIBE 10 MG TAB PO SCH (09:54)
[2022-12-24] MEDS: METOPROLOL TARTRATE 50 MG TAB PO SCH ×2 (09:54→21:44)
[2022-12-24] MEDS: DAPAGLIFLOZIN PROPANEDIOL 5 MG TABLET PO SCH (09:54)
[2022-12-24] MEDS: LINAGLIPTIN 5 MG TABLET PO SCH (09:54)
[2022-12-24] MEDS: FLUCONAZOLE ORAL SUSP 1,400 MG/35 ML BOTTLE PO SCH (09:55)
--- NOTE | 2022-12-24 10:59 | P.PN ---
Subjective Progress Note Date: 12/24/22 Principal diagnosis: Carotid stenosis Patient is seen and examined today sitting up in his bed in the ICU. He is postop day #1 for right carotid endarterectomy with patch angioplasty. GLENDA drain in place with approximately 20 mL of serosanguineous drainage throughout the night and this morning. Patient states he has some mild discomfort at surgical site. No acute changes through the night. Blood pressures have been stable, arterial line showing blood pressures 130s to 140s over 50s. Today and recovery patient was able to move his left upper extremity and raise it up. Patient also underwent PEG tube placement yesterday with general surgery. He is afebrile. Objective - Vital Signs Vital signs: Vital Signs Temp 97.9 F 12/24/22 04:00 Pulse 84 12/24/22 07:00 Resp 19 12/24/22 07:00 BP 118/71 12/24/22 07:00 Pulse Ox 95 12/24/22 07:00 FiO2 Intake & Output 12/23/22 12/24/22 12/24/22 18:59 06:59 18:59 Intake Total 2477 975 Output Total 1989 1145 Balance 487 -170 Weight 75 kg 76 kg Intake: IV 2477 975 Sodium Chloride 0.9% 1, 675 975 000 ml @ 75 mls/hr IV . [id number] [facility] Rx#:[id number] Output: Drainage 10 10 Right Neck 10 10 Urine 1920 1135 Estimated Blood Loss 60 Other: Voiding Method External Catheter Indwelling Catheter ABP, PAP, CO, CI - Last Documented Arterial Blood Pressure 133/50 - Exam General appearance: The patient is alert, oriented, appears in no acute distress. HET: Head is normocephalic and atraumatic. Pupils are equal and reactive. Neck: Supple. Trachea midline. Right surgical incision well approximated with some surrounding swelling, GLENDA drain with approximately 5-10 mL of serosanguineous drainage. Heart: Regular. Lungs: Equal expansion, normal respiratory effort. Abdomen: Soft, nontender, umbilical hernia, soft, nondistended. Extremities: Normal skin color and turgor. Bilateral palpable radial pulses. Neurological: Patient with slurred speech, left facial droop. Patient able to raise left arm off of the bed. Left lower extremity weakness. Good strength and tone right upper and lower extremities. - Labs CBC & Chem 7: 12/24/22 08:00 12/24/22 08:00 Labs: Abnormal Lab Results - Last 24 Hours (Table) 12/23/22 12/23/22 12/23/22 Range/Units 13:18 14:24 17:49 WBC (3.8-10.6) k/uL Neutrophils # (1.3-7.7) k/uL Creatinine (0.66-1.25) mg/dL Glucose (74-99) mg/dL POC Glucose (mg/dL) 141 H 130 H 124 H (70-110) mg/dL Calcium (8.4-10.2) mg/dL 12/23/22 12/24/22 12/24/22 Range/Units 23:26 05:42 08:00 WBC 11.1 H (3.8-10.6) k/uL Neutrophils # 8.6 H (1.3-7.7) k/uL Creatinine (0.66-1.25) mg/dL Glucose (74-99) mg/dL POC Glucose (mg/dL) 135 H 117 H (70-110) mg/dL Calcium (8.4-10.2) mg/dL 12/24/22 Range/Units 08:00 WBC (3.8-10.6) k/uL Neutrophils # (1.3-7.7) k/uL Creatinine 0.59 L (0.66-1.25) mg/dL Glucose 127 H (74-99) mg/dL POC Glucose (mg/dL) (70-110) mg/dL Calcium 7.8 L (8.4-10.2) mg/dL Assessment and Plan Assessment: 1. Severe bilateral internal carotid artery stenosis, symptomatic on the right. Status postop day #1 of right carotid endarterectomy with patch angioplasty 2. Acute ischemic stroke with left-sided weakness and slurred speech 3. Dysphagia and very to above status post PEG tube placement 4. Diabetes mellitus 5. Coronary artery disease status post CABG and stent 6. Hypertension 7. Hyperlipidemia 8. Former smoker. Plan: 1. Continue aspirin, Brilinta, atorvastatin 2. Continue ST/OT/PT 3. GLENAD drain discontinued 4. No activity restrictions from vascular surgery other than heavy lifting or straining. Encourage ambulation with PT 5. Blood pressure parameters per recommendations from neurology 6. Patient may be downgraded from the ICU 7. No further plans on vascular surgical intervention at this time. Patient to follow-up with Dr. Acosta in 2-3 weeks. Please set up appointment prior to discharge. 8. Rest of medical management deferred to primary medical team 9. Patient is cleared for discharge from vascular surgery once otherwise medically stable/cleared. Recommend discharge to rehab. Thank you for this consultation. The impression and plan of care has been dictated as directed. Dr. Acosta I performed a history and examination of this patient, discussed the same with the dictator. I agree with the dictator's note ,documented as a scribe. Any additional findings or plans will be noted.
--- NOTE | 2022-12-24 11:04 | P.PN ---
Subjective Progress Note Date: 12/24/22 This is a 67-year-old male gentleman seen today in consultation in the intensive care unit. He has a history of chronic and ongoing tobacco dependence, hyperlipidemia, hypertension, diabetes mellitus, type II, coronary disease with previous coronary bypass grafting and stent placement. Recent admission in October 2022 for an acute ischemic stroke with left hemiparesis. MARISELA revealed no cardiac source for CVA. CT angiogram revealed a right internal carotid artery stenosis of 80-85% and a left internal carotid artery stenosis of 85%. He was to follow with vascular surgery in the outpatient setting. Unfortunately he presented back here to the hospital on 12/16/2022 with a one-day history of incr easing weakness slurred speech and left-sided weakness. MRI of the brain revealed acute ischemic changes interval finding within the right brainstem and to a lesser degree left brain stem. Residual signal abnormality in the right occipital lobe considered to be the old ischemic change. Angiography revealed calcified and noncalcified plaque at the carotid bifurcations with at least 70% stenosis on the right and 90% stenosis on the left. No evidence of dissection. No evidence of intracranial high-grade stenosis or intracranial aneurysm. He was transferred to the intensive care unit for closer monitoring throughout the night. He is seen today in consultation in the ICU. He is currently sitting up in bed. He is quite aphasic. Congested. Nasogastric tube is in place. He is being nourished with Glucerna at 60 ML's per hour. He has 0.9 normal saline at 75 ML's per hour. He is currently maintaining good O2 saturations in the 90s on room air. Aspiration precautions. His left side is still quite weak able to raise his left arm but his hand is weak. Not able to raise his left leg. White count 9.3. He was 16.9. Platelets 199. Sodium 136. Potassium 3.7. Bicarb 15. BUN 11. Creatinine 0.57. Glucose 112. He is continued on aspirin and Brilinta. Heparin for DVT prophylaxis. The patient is seen today 12/20/2022 in follow-up in the intensive care unit. He is currently sitting up in bed. Awake, alert. Maintaining O2 saturations in the 90s on 3 L/m per nasal cannula. He's been afebrile. Hemodynamically stable. Chest x-ray reveals patchy left basilar atelectasis. White count 10.3. Hemoglobin 16.5. Platelets 189. Sodium 136. Potassium 4.0. Bicarb 15. BUN 14. Creatinine 0.62. Glucose 144. Remains a phasic. Remains with left-sided weakness. Nasogastric tube in place receiving Glucerna 1.2 at a rate of 60 ML's per hour. Receiving free water flushes. 12/21/2022, the patient is essentially unchanged. He does have flaccid paralysis of the left upper extremity. Is able to move his left toes. Unable to have significant movement of the left lower extremity. There is facial asymmetry with left facial weakness. Unable to swallow and the patient is an NG tube in place and the patient is receiving enteral feeding for social support and currently is on glucerna at the rate of 60 mL an hour. He is also on accommodation of aspirin and Brilinta. The patient is hemodynamically stable. He is doing self suctioning. He has a congested cough. Is able to suction is AT 3. NO SIGNS OF ANY RESPIRATORY DISTRESS. HE IS ON OXYGEN AT 3 L/M NASAL CANNULA. THE WHITE COUNT 12.6 WITH A HEMOGLOBIN OF 16.6 and a platelet count is at 195. BUN is at 40 with a creatinine of 0.6 and the sodium levels of 138. He is now having any episodes of hyper or hypotension. We're allowing somewhat higher blood pressures based on his underlying recent CVA. He is on Levemir insulin 8 units and is also on tradjenta and farxiga , and he is also normal saline at rate of 75 mL an hour. Cardiac rhythm remained sinus. No other significant events overnight. Neurology and vascular surgery of both on the case regarding his carotid artery stenosis bilaterally. The chest x-ray from today is essentially clear. He has a thoracotomy scar related to previous by pass surgery. He does smoke and his current comorbid conditions include hypertension, hyperlipidemia, diabetes mellitus type 2, coronary artery disease with previous bypass surgery and previous coronary stenting. 12/22/2022, neurologically the patient is awake. Continues to have flaccid paralysis of the left upper extremity, there is some motor function, minimal motor activity in the left lower extremity. The patient is scheduled to undergo a carotid endarterectomy tomorrow by vascular surgery. He has a congested cough. At the breathing is nonlabored. He is on oxygen at 3 L. He has an NG tube in place for enteral feeding and nutritional support and the patient is currently receiving Glucerna at the rate of 60 mL an hour. The patient is tolerating his nutrition without having any major difficulties. Hemodynamically stable. Blood pressure stable. Cardiac rhythm is sinus. His blood sugars are also under adequate control. His comorbid conditions include hypertension, hyperlipidemia diabetes mellitus type 2 and he has undergone previous coronary artery bypass surgery and previous coronary stenting. Blood work from today shows a WBC count of 15.7 with a hemoglobin of 16.1 and a platelet count of 211. Sodium is at 139, BUN is at 17 with a creatinine of 0.6 and the serum bicarbs at 21. IV fluids are in the form of normal saline at the rate of 75 mL an hour. He has a Acosta catheter in place. Neurology is also on the case. I do not appreciate any major change in his neurologic function since yesterday. Echocardiogram was also completed yesterday and it showed normal LV function, moderate mitral calcification, calcification of the aortic valve with moderate degree of aortic stenosis. The peak gradient across the aortic valve was 35 mmHg. The patient remains on a combination of aspirin and Brilinta. The patient is also on Lipitor. As mentioned earlier, the patient has failed Plavix. The patient is known to have severe bilateral carotid artery stenosis based on the most recent CTA and the patient has 70% right ICA and 90% left ICA. Possibility of a cardioembolic stroke cannot be completely ruled out. The patient has bilateral ischemic stroke involving the point on midregion right more than left and a small focus over the right temporal region. 12/23/2022, the patient is neurologically stable. The patient will be taken to the operating room for a right carotid endarterectomy and the PEG tube insertion. Note that the patient was unable to swallow following his CVA and the patient was receiving enteral feeding through his NG tube and the feeding was placed on hold in preparation for today's surgery. No loss neurological deficits for now. The patient was hemodynamically stable. Echo cardiogram showed a normal LV function. The patient's cardiac rhythm is sinus and the patient was maintained on a combination of aspirin and Brilinta. On today's blood work, the white cell cause of 9.8 with a hemoglobin of 15.2 and a platelet count of 182. Sodium is at 141, BUN is at 20 with a creatinine of 0.6 and a potassium level is at 4.2. 16 2022, the patient is doing well. He does have a left facial droop and left upper extremity weakness however he seems to be able to move it better than he is able to move it laterally and sometimes raise it against gravity. No new onset focal neurological deficit. The patient underwent a right carotid endarterectomy yesterday and the patient is currently postop day #1. The patient also had a PEG tube insertion and insertion on was successful. His hemodynamics are stable. His cardiac rhythm that is sinus for now.WBC count as of 11.1 with a hemoglobin of 14 and a platelet count of 198. Sodium is at 137 with a potassium level of 3.4 (107 with a bicarb of 24. BUN is 11 with a creatinine of 59. Objective - Vital Signs Vital signs: Vital Signs Temp 97.9 F 12/24/22 04:00 Pulse 84 12/24/22 07:00 Resp 19 12/24/22 07:00 BP 118/71 12/24/22 07:00 Pulse Ox 95 12/24/22 07:00 FiO2 Intake & Output 12/23/22 12/24/22 12/24/22 18:59 06:59 18:59 Intake Total 2477 975 225 Output Total 1989 1145 450 Balance 487 -170 -225 Weight 75 kg 76 kg Intake: IV 2477 975 225 Sodium Chloride 0.9% 1, 675 975 225 000 ml @ 75 mls/hr IV . [id number] [facility] Rx#:[id number] Output: Drainage 10 10 Right Neck 10 10 Urine 1920 1135 450 Estimated Blood Loss 60 Other: Voiding Method External Catheter Indwelling Catheter ABP, PAP, CO, CI - Last Documented Arterial Blood Pressure 133/50 - Exam GENERAL EXAM: Alert, aphasic 67-year-old male, on room air, fairly comfortable in no apparent distress. Patient has an NG tube in place and the patient is currently on 3 L of action by nasal cannula HEAD: Normocephalic. EYES: Normal reaction of pupils, equal size. NOSE: Nasogastric tube secured in place. Clear with pink turbinates. THROAT: No erythema or exudates. NECK: No masses, no JVD. The surgical scar over the right neck area dry clean and intact CHEST: No chest wall deformity. LUNGS: Equal air entry with bilateral scattered rhonchi. CVS: S1 and S2 normal with no audible murmur, regular rhythm. ABDOMEN: No hepatosplenomegaly, normal bowel sounds, no guarding or rigidity. The patient has a PEG tube in place SPINE: No scoliosis or deformity SKIN: No rashes CENTRAL NERVOUS SYSTEM: Aphasic, tone is normal in all 4 extremities. The patient has left upper extremity paralysis and the patient has facial asymmetry with left facial weakness. He does have dysphagia. His speech is slurred and the late yet he is able to comprehend and follow commands EXTREMITIES: Left upper and lower extremity weakness. There is no peripheral edema. Peripheral pulses are intact. - Labs CBC & Chem 7: 12/24/22 08:00 12/24/22 08:00 Labs: Abnormal Lab Results - Last 24 Hours (Table) 12/23/22 12/23/22 12/23/22 Range/Units 13:18 14:24 17:49 WBC (3.8-10.6) k/uL Neutrophils # (1.3-7.7) k/uL Creatinine (0.66-1.25) mg/dL Glucose (74-99) mg/dL POC Glucose (mg/dL) 141 H 130 H 124 H (70-110) mg/dL Calcium (8.4-10.2) mg/dL 12/23/22 12/24/22 12/24/22 Range/Units 23:26 05:42 08:00 WBC 11.1 H (3.8-10.6) k/uL Neutrophils # 8.6 H (1.3-7.7) k/uL Creatinine (0.66-1.25) mg/dL Glucose (74-99) mg/dL POC Glucose (mg/dL) 135 H 117 H (70-110) mg/dL Calcium (8.4-10.2) mg/dL 12/24/22 Range/Units 08:00 WBC (3.8-10.6) k/uL Neutrophils # (1.3-7.7) k/uL Creatinine 0.59 L (0.66-1.25) mg/dL Glucose 127 H (74-99) mg/dL POC Glucose (mg/dL) (70-110) mg/dL Calcium 7.8 L (8.4-10.2) mg/dL Assessment and Plan Plan: Acute ischemic stroke (bilateral pontine region and right > left) and felt small focus over the right temporal region. Etiology seems embolic in nature. Has severe bilateral carotid stenosis on most recent CTA in 11/14 and on 12/18/2022 in which has right ICA 70% while left is 90% stenosis. Rule out any cardioembolic.. Failed Plavix. Currently on Brilinta, atorvastatin and aspirin, neurologically unchanged since yesterday and the patient continues to have significant motor deficits with left facial weakness, swallow deficit and left upper extremity paralysis and extreme left lower extremity weakness. Reevaluation on 12/23/2022 showed that the patient's neurologic functions are unchanged and the patient is going to undergo a right carotid endarterectomy and effective is to follow as the patient has dysphagia. The patient is post right carotid endarterectomy and the patient is postop day #1 Right carotid atherectomy, postoperative day #1 Dysphagia secondary to CVA and the patient has a PEG tube in place Recent stroke in October 2022 in the right occipital region with left-sided weakness, slurred speech and facial droop, mainly resolved Bilateral carotid stenosis and calcified plaque at the carotid bifurcations with at least 70% stenosis on the right and 90% stenosis on the left History of coronary artery disease with previous stent placement and coronary artery bypass grafting Hypertension Hyperlipidemia Diabetes mellitus Chronic and ongoing tobacco dependence Hearing disorder Plan: Right carotid endarterectomy completed PEG tube insertion completed and we'll start enteral feeding for nutritional support and within 24 hours NG tube has been removed Continued on statins, Brilinta, aspirin Continued on aspiration precautions x-ray from yesterday was essentially clear Currently stable and the patient is currently on 3 L of oxygen by nasal cannula We will continue to follow Neurology and vascular surgery both on the case. We'll continue to follow. PHYSICAL therapy to be involved We'll continue to follow
[2022-12-24] MEDS: ACETAMINOPHEN TAB 325 MG TAB PO PRN (11:07)
[2022-12-24] MEDS: HEPARIN SODIUM,PORCINE/PF 5,000 UNIT/0.5 ML SYRINGE SQ SCH ×2 (11:08→21:44)
[2022-12-24] MEDS: TICAGRELOR 90 MG TAB PO SCH ×2 (11:09→21:44)
[2022-12-24] MEDS: ASPIRIN 81 MG PO SCH (11:09)
--- NOTE | 2022-12-24 11:47 | P.PN ---
Subjective Progress Note Date: 12/24/22 CHIEF COMPLAINT: CVA HISTORY OF PRESENT ILLNESS: Patient remains in the ICU. He was diagnosed with acute stroke with dysphagia. Patient is status post PEG tube placement. Tube feeds are scheduled to be started today. Patient denies pain. Afebrile. WBC 11.1 hgb 14 platelets 198 Na 137 potassium 3.9 creatinine 0.59 PHYSICAL EXAM: VITAL SIGNS: Reviewed. GENERAL: no acute distress. ABDOMEN: Soft. Nondistended. PEG tube site clean dry and intact NEUROLOGIC: Awake ASSESSMENT: 1. CVA 2. Dysphagia with mild protein calorie malnutrition status post PEG tube placement PLAN: -Consult dietitian to initiate tube feeds -Okay to use PEG tube for medications and tube feeds -Continue ICU management and supportive care Physician Wincher note has been reviewed by physician. Signing provider agrees with the documented findings, assessment, and plan of care. Objective - Vital Signs Vital signs: Vital Signs Temp 97.9 F 12/24/22 04:00 Pulse 84 12/24/22 07:00 Resp 19 12/24/22 07:00 BP 118/71 12/24/22 07:00 Pulse Ox 95 12/24/22 07:00 FiO2 Intake & Output 12/23/22 12/24/22 12/24/22 18:59 06:59 18:59 Intake Total 2477 975 225 Output Total 1989 1145 450 Balance 487 -170 -225 Weight 75 kg 76 kg Intake: IV 2477 975 225 Sodium Chloride 0.9% 1, 675 975 225 000 ml @ 75 mls/hr IV . [id number] [facility] Rx#:[id number] Output: Drainage 10 10 Right Neck 10 10 Urine 1920 1135 450 Estimated Blood Loss 60 Other: Voiding Method External Catheter Indwelling Catheter ABP, PAP, CO, CI - Last Documented Arterial Blood Pressure 133/50 - Labs CBC & Chem 7: 12/24/22 08:00 12/24/22 08:00 Labs: Abnormal Lab Results - Last 24 Hours (Table) 12/23/22 12/23/22 12/23/22 Range/Units 13:18 14:24 17:49 WBC (3.8-10.6) k/uL Neutrophils # (1.3-7.7) k/uL Creatinine (0.66-1.25) mg/dL Glucose (74-99) mg/dL POC Glucose (mg/dL) 141 H 130 H 124 H (70-110) mg/dL Calcium (8.4-10.2) mg/dL 12/23/22 12/24/22 12/24/22 Range/Units 23:26 05:42 08:00 WBC 11.1 H (3.8-10.6) k/uL Neutrophils # 8.6 H (1.3-7.7) k/uL Creatinine (0.66-1.25) mg/dL Glucose (74-99) mg/dL POC Glucose (mg/dL) 135 H 117 H (70-110) mg/dL Calcium (8.4-10.2) mg/dL 12/24/22 Range/Units 08:00 WBC (3.8-10.6) k/uL Neutrophils # (1.3-7.7) k/uL Creatinine 0.59 L (0.66-1.25) mg/dL Glucose 127 H (74-99) mg/dL POC Glucose (mg/dL) (70-110) mg/dL Calcium 7.8 L (8.4-10.2) mg/dL
[2022-12-24 12:10] LABS: Glucose,Whole Blood 116 mg/dL (70-110)
--- NOTE | 2022-12-24 12:14 | P.PN ---
Subjective Progress Note Date: 12/24/22 The patient is known to me. Please refer to Dr. Estrella's notes for further details. Yesterday he had right carotid endartectomy and has a bit more movement in left upper extremity compared to couple days ago. Otherwise denies of any other neurological issues. Objective - Vital Signs Vital signs: Vital Signs Temp 98.6 F 12/24/22 08:00 Pulse 92 12/24/22 11:00 Resp 23 12/24/22 11:00 BP 118/71 12/24/22 11:00 Pulse Ox 95 12/24/22 11:00 FiO2 50 12/24/22 08:00 Intake & Output 12/23/22 12/24/22 12/24/22 18:59 06:59 18:59 Intake Total 2477 975 300 Output Total 1989 1145 605 Balance 487 170 -305 Weight 75 kg 76 kg 76 kg Intake: IV 2477 975 300 Sodium Chloride 0.9% 1, 675 975 300 000 ml @ 75 mls/hr IV . [id number] [facility] Rx#:[id number] Output: Drainage 10 10 5 Right Neck 10 10 5 Urine 1920 1135 600 Estimated Blood Loss 60 Other: Voiding Method External Catheter Indwelling Catheter Indwelling Catheter ABP, PAP, CO, CI - Last Documented Arterial Blood Pressure 174/63 - Exam GENERAL: The patient is lying in bed and is not in acute distress. NEUROLOGICAL: Awake, alert, oriented to self, place and time. Following simple commands. No aphasia. No neglect. Cranial nerves: The pupils are round, equal and reactive to light. Extraocular movement is intact no nystagmus is noted. Moderate left lower fac ial weakness. Has severe dysarthria is noted. . . Motor: The strength is left upper is 2-3 (but more 2) and is able to briefly lift above gravity and bend his elbow and weak broomcorn scraper. Left lower is wiggling toes otherwise no movement. Right side 5/5. Decrease tone over the left. Cerebellum: Had to assess finger to nose on left because of weakness but normal on the right. Sensation: Sensation is decreased on the left. Some other workup during this hospital visit consisted of: Hemoglobin A1c is 10.0 Lipid panel is TG 376, cholesterol 190, LDL 77 and HDL is 37. CT of the head is reported as no acute finding in the head/brain. Personally reviewed the CT of the head and there is no acute or subacute ischemia. Carotid duplex was reported as less than 50% stenosis on the right carotid bifurcation. 50-60% stenosis on the left carotid bifurcation. MRI Brain is reported as acute is ischemic changes, an interval finding within brainstem right > left. Residual right occipital lobe can be related to the old ischemic change. Chronic appearing deep white matter changes. I personally reviewed the MRI and I agree with the report and in addition I also felt the patient had a small focus over the right temporal lesion. Brainstem is involving the lateral pontine region . CT angiography of the head and neck was reported as calcified non-calcified plaque at the carotid bifurcation at least 70% stenosis on the right 90% stenosis on the left. No evidence for dissection of the cervical internal carotid artery or vertebral artery. No evidence of intracranial high-grade stenosis or intracranial aneurysm. Mild pulmonary vascular congestion with cardiomegaly correlate for congestive heart failure. - Labs CBC & Chem 7: 12/24/22 08:00 12/24/22 08:00 Labs: Abnormal Lab Results - Last 24 Hours (Table) 12/23/22 12/23/22 12/23/22 Range/Units 13:18 14:24 17:49 WBC (3.8-10.6) k/uL Neutrophils # (1.3-7.7) k/uL Creatinine (0.66-1.25) mg/dL Glucose (74-99) mg/dL POC Glucose (mg/dL) 141 H 130 H 124 H (70-110) mg/dL Calcium (8.4-10.2) mg/dL 12/23/22 12/24/22 12/24/22 Range/Units 23:26 05:42 08:00 WBC 11.1 H (3.8-10.6) k/uL Neutrophils # 8.6 H (1.3-7.7) k/uL Creatinine (0.66-1.25) mg/dL Glucose (74-99) mg/dL POC Glucose (mg/dL) 135 H 117 H (70-110) mg/dL Calcium (8.4-10.2) mg/dL 12/24/22 Range/Units 08:00 WBC (3.8-10.6) k/uL Neutrophils # (1.3-7.7) k/uL Creatinine 0.59 L (0.66-1.25) mg/dL Glucose 127 H (74-99) mg/dL POC Glucose (mg/dL) (70-110) mg/dL Calcium 7.8 L (8.4-10.2) mg/dL Assessment and Plan Assessment: This is a 67-year-old gentleman who presented that because of left-sided weakness and numbness with dysarthria. Patient stated that his symptoms began on 12/15/2022 in the afternoon for the ED was accompanied with his daughter and is seems his symptoms has been progressive for the last 48 hours prior to presenting to the hospital. Acute ischemic stroke (bilateral brainstem over pontine region and right > left) and felt small focus over the right temporal region. Etiology seems embolic in nature. Has severe bilateral carotid stenosis on most recent CTA in 11/14 and on 12/18/2022 in which has right ICA 70% while left is 90% stenosis. Rule out any cardioembolic. Dysphagia due to above Significant left hemiparesis due to above (lower > upper) Right ICA carotid endarterectomy on 12/23/22 Recent stroke in the second week of October 2022 in which she had the right occipital and was also felt likely due to symptomatic right ICA stenosis. At that time also patient had the left-sided weakness with facial droop and slurred speech and his symptoms resolved. Patient also had the MRI which also reported acute to subacute left hernandez radiata but was felt likely T2 shine through and not acute or subacute stroke. Vascular team ask for him to follow-u as outpatient. Significant bilateral carotid stenosis. There is discordinant between CTA and carotid on both time (in 11/14/ and on 12/18/22 which is worse on CTA and not significant on carotid duplex. Recent CTA reveals right ICA 70% while left is 90%). Dyslipidemia Diabetes mellitus Hypertension Hard of hearing History of coronary artery disease status post stent as well as CABG Tobacco use Plan: During this admission, I stopped Plavix since the patient failed the medication. I started the patient on Brilinta 90mg bid I decreased ASA from 325mg to 81mg daily. Continue Lipitor 80 mg daily at bedtime for secondary stroke prophylaxis. Patient had Right ICA carotid endarterectomy on 12/23/22. Regarding significant left ICA stenosis and it seem symptomatic, per vascular surgery team to be add ressed as outpatient and not inpatient. Recommend blood pressure to be within 140-180's. Q1 Neurochecks Cardiac monitoring PT, OT and OFFICE MESSENGER HELPER are consulted Patient had a MARISELA performed 11/08/2022, which revealed no embolic source identified. Normal left ventricular size and systolic function. Normal appearance of the left atrial appendage. Mild mitral and tricuspid regurgi tation. No shunting across the interatrial septum. No need to repeat MARISELA per Dr. Estrella. We'll defer the rest of the medical management to the primary team For DVT prophylaxis On subcu heparin 5000 units every 12 hours Upon discharge, recommend patient to follow-up with neurologist and vascular gualberto jocelynn team as outpatient. Condition is very guarded. The plan was discussed with the patient and vascular surgery team. Dr. Douglass will start neurology service tomorrow A.M. Time with Patient: Less than 30
[2022-12-24] MEDS: PHENYLEPHRINE 40 MG in SODIUM CHLORIDE 0.9% 250 ML IV SCH (13:10)
--- NOTE | 2022-12-24 13:50 | P.DS ---
Providers Date of admission: 12/16/22 03:55 Attending physician: Rickie Reyes Consults: 12/16/22 03:55 Consult Physician Routine Consulting Provider: Jayce Coffey Consult Reason/Comments: CVA Do you want consulting provider notified?: Yes 12/16/22 13:50 Consult Physician Urgent Consulting Provider: Rama Acosta Consult Reason/Comments: right ica stenosis and recurrent left sided deficits Do you want consulting provider notified?: Yes 12/17/22 06:20 Consult Physician Routine Consulting Provider: Asif Haynes Consult Reason/Comments: cardiac clearance for right carotid endarterectomy Do you want consulting provider notified?: Yes 12/17/22 09:19 Consult Physician Routine Consulting Provider: Tevin Anne Consult Reason/Comments: evaluate for IPR Do you want consulting provider notified?: Yes 12/17/22 09:46 Consult Physician Urgent Consulting Provider: Cody Moyer Consult Reason/Comments: placement of dobhoff ng tube Do you want consulting provider notified?: Yes 12/19/22 07:59 Consult Physician Routine Consulting Provider: Erick Coffey Consult Reason/Comments: ICU management Do you want consulting provider notified?: Already Contacted Primary care physician: Gabriel Reyes Hospital Course: Final Diagnosis Postoperative day #1 right carotid endarterectomy Postoperative day #1 PEG tube placement secondary to dysphagia following stroke. Acute ischemic stroke with right brain stem as well as left brain stem and the lesser degree, patient has left hemiparesis Bilateral internal carotid artery stenosis Coronary artery disease with prior CABG and PCI Hypertension Hyperlipidemia COPD with no acute exacerbation Diabetes Mellitus type 2, uncontrolled with A1C of 10.0 Moderate aortic stenosis GI prophylaxis DVT prophylaxis DO NOT INTUBATE, DO NOT RESUSCITATE Discharge Disposition Patient is cleared for discharge inpatient rehab at [facility]. Patient to follow up with vascular surgery in 2 to 3 weeks on discharge with plans to perform left carotid endartectomy outpatient. Patient started on aspirin/brilinta dual antiplatelet therapy and to continue on discharge. Recommend to establish care and follow with neurology outpatient. Patient has PEG tube in place and currently NPO. Patient requires ongoing ORE TESTER services and underwent PEG tube placement. Currently on glucerna 1.2 rate of 60 mls/hr with 50 mL of free water every 4 hours and to continue with tube feeds at rehab. Per Dietary; tube feedings to start at 20mls/hr and to advance by 20 mls/hr every 8 hours until at goal of 60 mls/hr. Patient to discharge to inpatient rehab at [facility]. Recommend to follow up labs in 2 to 3 days. Continue oral fluconazole for 4 more days to complete a 7 day course. 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 Patient recently hospitalized for stroke a month ago that affected his speech and the left side of his body and was discharged on 11/08. Patient underwent MARISELA that hospital stay with no cardiac source of stroke and cardiology was planning on performing outpatient stress testing and f/u vascular surgery for the bilateral carotid artery stenosis. Patient was discharged home. -Family noticed that patient was having some difficulty with balance and walking and he started complaining of a headache and pressure behind his eye and not feeling well in general. He also was noted have incontinence and did not realize he was incontinent. Then he developed significant weakness on the left side and slurred speech and difficulty swallowing and presented to [facility] for further evaluation. Patient was admitted to the hospital for acute stroke with imaging revealing a brainstem stroke right greater than the left. Patient has deficits of left hemiparesis as well as dysphagia. Neurology, vascular surgery, pulmonary tobacco hanger, general surgery, cardiology were consulted. Patient is being closely monitored in the intensive care unit. Patient underwent a PEG tube placement yesterday will be started on tube feedings today secondary to a failed swallow study and dysphagia. Additionally patient has known bilateral internal carotid artery stenosis and is postoperative day 1 right carotid endarterectomy with vascular surgery following. Patient continues on aspirin and brilinta for dual antiplatelet therapy. Was on plavix/aspirin prior hospital stay and patient has been taken off the plavix and started on brilinta due acute stroke from failed therapy on plavix. Patient is also on daily fluconazole for a 7 day course to continue for 4 additional days on discharge. Labs today reveal a white count of 11.1, electrolytes are WNL, Kidney functions table. Blood glucose controlled in the 120s. Patient is denying chest pain, no shortness of breath. He has minimal movement to the left upper extremity. Has been bed rest. Dressing intact to the right carotid surgical site. Peg tube in place dressing intact and tube feedings have been started. Lungs reveal some faint scattered ronchi. S1 S2 auscultated, patient has been normal sinus rhythm on telemetry. Patients abdomen is soft and nontender has normoactive bowel sounds. Indwelling catheter in place. Afebrile, heart rate of 84, blood pressure 148/55, on 2L nasal cannula with saturation of 95%. Patient cleared for DC to inpatient rehab at [facility] with the above mentioned recommendations. Please see medication reconciliation for a list of current medication. Thank you for allowing us to participate in the care of this patient. The impression and plan of care has been dictated by Sarah Castillo, Nurse Practitioner as directed. Dr. Joseph MD I have performed a history and physical examination and medical decision making of this patient, discussed the same with the dictator, and agree with the dictators assessment and plan as written, documented as a scribe. Based on total visit time, I have performed more than 50% of this visit. Patient Condition at Discharge: Fair Plan - Discharge Summary Discharge Rx Participant: Yes New Discharge Prescriptions: New Ticagrelor [Brilinta] 90 mg PO BID tab Metoprolol Tartrate [Lopressor] 50 mg PO BID tab INSULIN ASPART (NovoLOG) [NovoLOG (formulary)] 0 unit SQ Q6HR each Pantoprazole [Protonix] 40 mg PO AC-BRKFST tab Fluconazole Oral Susp [Diflucan Oral Susp] 200 mg PO DAILY 3 Days ml Insulin Detemir (Levemir) [Levemir] 8 unit SQ HS each Escitalopram [Lexapro] 5 mg PO DAILY tab Scopolamine 1 mg/72 Hr Patch [TransDerm Scop] 1 patch TRANSDERM Q72H patch Acetaminophen Tab [Tylenol] 650 mg PO Q6HR PRN tab PRN Reason: Mild Pain Or Fever > 100.5 Continue sitaGLIPtin [Januvia] 100 mg PO DAILY Spironolactone 25 mg PO DAILY Insulin Aspart [Insulin Aspart Flexpen] 7 unit SQ AC-TID Dapagliflozin Propanediol [Farxiga] 5 mg PO DAILY icosapent ethyL [Icosapent Ethyl] 1 gm PO BID Ezetimibe [Zetia] 10 mg PO DAILY gemfibroziL [Lopid] 600 mg PO AC-BID Aspirin 325 mg PO DAILY tab Atorvastatin [Lipitor] 80 mg PO HS #30 tab Discontinued Clopidogrel [Plavix] 75 mg PO DAILY #30 tab Insulin Detemir [Levemir Flexpen] 15 units SQ DAILY #5 pen metFORMIN HCL 500 mg PO BID Metoprolol Tartrate [Lopressor] 100 mg PO BID #60 tab Discharge Medication List Insulin Aspart [Insulin Aspart Flexpen] 7 unit SQ AC-TID 11/04/22 [History] Dapagliflozin Propanediol [Farxiga] 5 mg PO DAILY 11/05/22 [History] Ezetimibe [Zetia] 10 mg PO DAILY 11/05/22 [History] Spironolactone 25 mg PO DAILY 11/05/22 [History] gemfibroziL [Lopid] 600 mg PO AC-BID 11/05/22 [History] icosapent ethyL [Icosapent Ethyl] 1 gm PO BID 11/05/22 [History] sitaGLIPtin [Januvia] 100 mg PO DAILY 11/05/22 [History] Aspirin 325 mg PO DAILY tab 11/08/22 [Rx] Atorvastatin [Lipitor] 80 mg PO HS #30 tab 11/08/22 [Rx] Acetaminophen Tab [Tylenol] 650 mg PO Q6HR PRN tab 12/24/22 [Rx] Escitalopram [Lexapro] 5 mg PO DAILY tab 12/24/22 [Rx] Fluconazole Oral Susp [Diflucan Oral Susp] 200 mg PO DAILY 3 Days ml 12/24/22 [Rx] INSULIN ASPART (NovoLOG) [NovoLOG (formulary)] 0 unit SQ Q6HR each 12/24/22 [Rx] Insulin Detemir (Levemir) [Levemir] 8 unit SQ HS each 12/24/22 [Rx] Metoprolol Tartrate [Lopressor] 50 mg PO BID tab 12/24/22 [Rx] Pantoprazole [Protonix] 40 mg PO AC-BRKFST tab 12/24/22 [Rx] Scopolamine 1 mg/72 Hr Patch [TransDerm Scop] 1 patch TRANSDERM Q72H patch 12/24/22 [Rx] Ticagrelor [Brilinta] 90 mg PO BID tab 12/24/22 [Rx] Follow up Appointment(s)/Referral(s): Gabriel Reyes MD [Primary Care Provider] - 1-2 days Rama Acosta DO [STAFF PHYSICIAN] - 3 Weeks Aniceto Dominguez DO [STAFF PHYSICIAN] - 1 Week Cody Moyer MD [STAFF PHYSICIAN] - 1 Week Patient Instructions/Handouts: Ischemic Stroke (GEN), Carotid Endarterectomy (DC) Activity/Diet/Wound Care/Special Instructions: Patient cleared from vascular and neurology services for discharge. Patient to continue for now on aspirin 81 mg daily and brilinta 90 mg BID with further recommendations from vascular surgery. Patient to follow up with Dr. Acosta in the office in 2 to 3 weeks. Plan for patient to undergo left endarectomy outpatient with Dr. Acosta Follow up with neurology on discharge Patient requires ongoing ORE TESTER services and underwent PEG tube placement. Currently on glucerna 1.2 rate of 60 mls/hr with 50 mL of free water every 4 hours and to continue with tube feeds at rehab. Per Dietary; tube feedings to start at 20mls/hr and to advance by 20 mls/hr every 8 hours until at goal of 60 mls/hr. Patient to discharge to inpatient rehab at [facility]. Recommend to follow up labs in 2 to 3 days. Discharge Disposition: TRANSFER TO SNF/ECF
[2022-12-24] MEDS: SCOPOLAMINE 1 MG/72 HR PATCH TRANSDERM SCH (14:31)
[2022-12-24 18:06] LABS: Glucose,Whole Blood 120 mg/dL (70-110)
[2022-12-24] MEDS: ATORVASTATIN 80 MG TAB PO SCH (21:44)
[2022-12-25 00:38] LABS: Glucose,Whole Blood 131 mg/dL (70-110)
[2022-12-25] MEDS: INSULIN ASPART (NovoLOG) 100 UNIT/ML VIAL SQ SCH ×4 (00:44→17:42)
[2022-12-25] MEDS: INSULIN DETEMIR (LEVEMIR) 100 UNIT/ML SYR SQ SCH ×2 (00:59→20:40)
[2022-12-25] MEDS: MORPHINE SULFATE 2 MG/ML SYRINGE IVP PRN ×4 (01:01→20:02)
[2022-12-25 05:04] LABS: African American GFR (CKD) >90 (>60 ml/min/1.73 sqM); Anion Gap 9 mmol/L; Blood Urea Nitrogen 10 mg/dL (9-20); Calcium 7.9 mg/dL (8.4-10.2); Carbon Dioxide 22 mmol/L (22-30); Chloride 104 mmol/L (98-107); Glucose 146 mg/dL (74-99); Non-African American GFR(CKD) >90 (>60 ml/min/1.73 sqM); Potassium 3.7 mmol/L (3.5-5.1); Sodium 135 mmol/L (137-145)
[2022-12-25 06:26] LABS: Glucose,Whole Blood 136 mg/dL (70-110)
[2022-12-25] MEDS: PANTOPRAZOLE 40 MG TABLET PO SCH ×2 (06:29→08:13)
[2022-12-25] MEDS: PHENYLEPHRINE 40 MG in SODIUM CHLORIDE 0.9% 250 ML IV SCH ×2 (07:09→23:05)
[2022-12-25] MEDS: Icosapent Ethyl [Icosapent Ethyl] 1 GM Capsule PO SCH ×2 (07:10→16:03)
[2022-12-25] MEDS: METOPROLOL TARTRATE 50 MG TAB PO SCH ×2 (08:13→20:39)
[2022-12-25] MEDS: ASPIRIN 81 MG PO SCH (08:13)
[2022-12-25] MEDS: DAPAGLIFLOZIN PROPANEDIOL 5 MG TABLET PO SCH (08:13)
[2022-12-25] MEDS: LINAGLIPTIN 5 MG TABLET PO SCH (08:13)
[2022-12-25] MEDS: EZETIMIBE 10 MG TAB PO SCH (08:13)
[2022-12-25] MEDS: ESCITALOPRAM 5 MG TAB PO SCH (08:13)
[2022-12-25] MEDS: HEPARIN SODIUM,PORCINE/PF 5,000 UNIT/0.5 ML SYRINGE SQ SCH ×2 (08:14→20:39)
[2022-12-25] MEDS: PANTOPRAZOLE 40 MG/10 ML VIAL IVP SCH (08:35)
[2022-12-25] MEDS: SODIUM CHLORIDE 0.9% 1,000 ML IV SCH ×2 (10:37→23:05)
[2022-12-25] MEDS: FLUCONAZOLE ORAL SUSP 1,400 MG/35 ML BOTTLE PO SCH (10:38)
[2022-12-25] MEDS: TICAGRELOR 90 MG TAB PO SCH ×2 (10:38→20:39)
[2022-12-25 11:30] LABS: Glucose,Whole Blood 114 mg/dL (70-110)
--- NOTE | 2022-12-25 12:22 | P.PN ---
Subjective Progress Note Date: 12/25/22 This is a 67-year-old male gentleman seen today in consultation in the intensive care unit. He has a history of chronic and ongoing tobacco dependence, hyperlipidemia, hypertension, diabetes mellitus, type II, coronary disease with previous coronary bypass grafting and stent placement. Recent admission in October 2022 for an acute ischemic stroke with left hemiparesis. MARISELA revealed no cardiac source for CVA. CT angiogram revealed a right internal carotid artery stenosis of 80-85% and a left internal carotid artery stenosis of 85%. He was to follow with vascular surgery in the outpatient setting. Unfortunately he presented back here to the hospital on 12/16/2022 with a one-day history of incr easing weakness slurred speech and left-sided weakness. MRI of the brain revealed acute ischemic changes interval finding within the right brainstem and to a lesser degree left brain stem. Residual signal abnormality in the right occipital lobe considered to be the old ischemic change. Angiography revealed calcified and noncalcified plaque at the carotid bifurcations with at least 70% stenosis on the right and 90% stenosis on the left. No evidence of dissection. No evidence of intracranial high-grade stenosis or intracranial aneurysm. He was transferred to the intensive care unit for closer monitoring throughout the night. He is seen today in consultation in the ICU. He is currently sitting up in bed. He is quite aphasic. Congested. Nasogastric tube is in place. He is being nourished with Glucerna at 60 ML's per hour. He has 0.9 normal saline at 75 ML's per hour. He is currently maintaining good O2 saturations in the 90s on room air. Aspiration precautions. His left side is still quite weak able to raise his left arm but his hand is weak. Not able to raise his left leg. White count 9.3. He was 16.9. Platelets 199. Sodium 136. Potassium 3.7. Bicarb 15. BUN 11. Creatinine 0.57. Glucose 112. He is continued on aspirin and Brilinta. Heparin for DVT prophylaxis. The patient is seen today 12/20/2022 in follow-up in the intensive care unit. He is currently sitting up in bed. Awake, alert. Maintaining O2 saturations in the 90s on 3 L/m per nasal cannula. He's been afebrile. Hemodynamically stable. Chest x-ray reveals patchy left basilar atelectasis. White count 10.3. Hemoglobin 16.5. Platelets 189. Sodium 136. Potassium 4.0. Bicarb 15. BUN 14. Creatinine 0.62. Glucose 144. Remains a phasic. Remains with left-sided weakness. Nasogastric tube in place receiving Glucerna 1.2 at a rate of 60 ML's per hour. Receiving free water flushes. 12/21/2022, the patient is essentially unchanged. He does have flaccid paralysis of the left upper extremity. Is able to move his left toes. Unable to have significant movement of the left lower extremity. There is facial asymmetry with left facial weakness. Unable to swallow and the patient is an NG tube in place and the patient is receiving enteral feeding for social support and currently is on glucerna at the rate of 60 mL an hour. He is also on accommodation of aspirin and Brilinta. The patient is hemodynamically stable. He is doing self suctioning. He has a congested cough. Is able to suction is AT 3. NO SIGNS OF ANY RESPIRATORY DISTRESS. HE IS ON OXYGEN AT 3 L/M NASAL CANNULA. THE WHITE COUNT 12.6 WITH A HEMOGLOBIN OF 16.6 and a platelet count is at 195. BUN is at 40 with a creatinine of 0.6 and the sodium levels of 138. He is now having any episodes of hyper or hypotension. We're allowing somewhat higher blood pressures based on his underlying recent CVA. He is on Levemir insulin 8 units and is also on tradjenta and farxiga , and he is also normal saline at rate of 75 mL an hour. Cardiac rhythm remained sinus. No other significant events overnight. Neurology and vascular surgery of both on the case regarding his carotid artery stenosis bilaterally. The chest x-ray from today is essentially clear. He has a thoracotomy scar related to previous by pass surgery. He does smoke and his current comorbid conditions include hypertension, hyperlipidemia, diabetes mellitus type 2, coronary artery disease with previous bypass surgery and previous coronary stenting. 12/22/2022, neurologically the patient is awake. Continues to have flaccid paralysis of the left upper extremity, there is some motor function, minimal motor activity in the left lower extremity. The patient is scheduled to undergo a carotid endarterectomy tomorrow by vascular surgery. He has a congested cough. At the breathing is nonlabored. He is on oxygen at 3 L. He has an NG tube in place for enteral feeding and nutritional support and the patient is currently receiving Glucerna at the rate of 60 mL an hour. The patient is tolerating his nutrition without having any major difficulties. Hemodynamically stable. Blood pressure stable. Cardiac rhythm is sinus. His blood sugars are also under adequate control. His comorbid conditions include hypertension, hyperlipidemia diabetes mellitus type 2 and he has undergone previous coronary artery bypass surgery and previous coronary stenting. Blood work from today shows a WBC count of 15.7 with a hemoglobin of 16.1 and a platelet count of 211. Sodium is at 139, BUN is at 17 with a creatinine of 0.6 and the serum bicarbs at 21. IV fluids are in the form of normal saline at the rate of 75 mL an hour. He has a Acosta catheter in place. Neurology is also on the case. I do not appreciate any major change in his neurologic function since yesterday. Echocardiogram was also completed yesterday and it showed normal LV function, moderate mitral calcification, calcification of the aortic valve with moderate degree of aortic stenosis. The peak gradient across the aortic valve was 35 mmHg. The patient remains on a combination of aspirin and Brilinta. The patient is also on Lipitor. As mentioned earlier, the patient has failed Plavix. The patient is known to have severe bilateral carotid artery stenosis based on the most recent CTA and the patient has 70% right ICA and 90% left ICA. Possibility of a cardioembolic stroke cannot be completely ruled out. The patient has bilateral ischemic stroke involving the point on midregion right more than left and a small focus over the right temporal region. 12/23/2022, the patient is neurologically stable. The patient will be taken to the operating room for a right carotid endarterectomy and the PEG tube insertion. Note that the patient was unable to swallow following his CVA and the patient was receiving enteral feeding through his NG tube and the feeding was placed on hold in preparation for today's surgery. No loss neurological deficits for now. The patient was hemodynamically stable. Echo cardiogram showed a normal LV function. The patient's cardiac rhythm is sinus and the patient was maintained on a combination of aspirin and Brilinta. On today's blood work, the white cell cause of 9.8 with a hemoglobin of 15.2 and a platelet count of 182. Sodium is at 141, BUN is at 20 with a creatinine of 0.6 and a potassium level is at 4.2. 16 2022, the patient is doing well. He does have a left facial droop and left upper extremity weakness however he seems to be able to move it better than he is able to move it laterally and sometimes raise it against gravity. No new onset focal neurological deficit. The patient underwent a right carotid endarterectomy yesterday and the patient is currently postop day #1. The patient also had a PEG tube insertion and insertion on was successful. His hemodynamics are stable. His cardiac rhythm that is sinus for now.WBC count as of 11.1 with a hemoglobin of 14 and a platelet count of 198. Sodium is at 137 with a potassium level of 3.4 (107 with a bicarb of 24. BUN is 11 with a creatinine of 59. On 12/25/2022, the patient is on a medical floor. His working with physical therapy. He does have left arm and left lower extremity weakness and left facial droop. He underwent PEG tube insertion and he also underwent a carotid endarterectomy on the right. Surgical sites are dry and clean. Patient was started on Glucerna 4 enteral feeding and nutritional support. No new onset neurological deficits. The patient is hemodynamically stable. He was moved out of the intensive care unit and currently is on a medical floor. He is on 2 L of oxygen nasal cannula with a pulse ox of 90%. Is afebrile. Objective - Vital Signs Vital signs: Vital Signs Temp 97.4 F L 12/25/22 07:27 Pulse 101 H 12/25/22 07:27 Resp 18 12/25/22 07:27 BP 153/74 12/25/22 07:27 Pulse Ox 98 12/25/22 08:59 FiO2 50 12/24/22 08:00 Intake & Output 12/24/22 12/25/22 12/25/22 18:59 06:59 18:59 Intake Total 585 Output Total 770 1400 Balance -185 -1400 Weight 76 kg Intake: IV 525 Sodium Chloride 0.9% 1, 525 000 ml @ 75 mls/hr IV . [id number] [facility] Rx#:[id number] Tube Feeding 60 Output: Drainage 5 Right Neck 5 Urine 765 1400 Other: Voiding Method Indwelling Catheter Indwelling Catheter Indwelling Catheter ABP, PAP, CO, CI - Last Documented Arterial Blood Pressure 142/50 - Exam GENERAL EXAM: Alert, aphasic 67-year-old male, on room air, fairly comfortable in no apparent distress. Patient has an NG tube in place and the patient is currently on 2 L of action by nasal cannula HEAD: Normocephalic. EYES: Normal reaction of pupils, equal size. NOSE: Nasogastric tube secured in place. Clear with pink turbinates. THROAT: No erythema or exudates. NECK: No masses, no JVD. The surgical scar over the right neck area dry clean and intact CHEST: No chest wall deformity. LUNGS: Equal air entry with bilateral scattered rhonchi. CVS: S1 and S2 normal with no audible murmur, regular rhythm. ABDOMEN: No hepatosplenomegaly, normal bowel sounds, no guarding or rigidity. The patient has a PEG tube in place SPINE: No scoliosis or deformity SKIN: No rashes CENTRAL NERVOUS SYSTEM: Aphasic, tone is normal in all 4 extremities. The patient has left upper extremity paralysis and the patient has facial asymmetry with left facial weakness. He does have dysphagia. His speech is slurred and the late yet he is able to comprehend and follow commands EXTREMITIES: Left upper and lower extremity weakness. There is no peripheral edema. Peripheral pulses are intact. - Labs CBC & Chem 7: 12/24/22 08:00 12/25/22 04:17 Labs: Abnormal Lab Results - Last 24 Hours (Table) 12/24/22 12/24/22 12/25/22 Range/Units 12:08 18:04 00:37 Sodium (137-145) mmol/L Creatinine (0.66-1.25) mg/dL Glucose (74-99) mg/dL POC Glucose (mg/dL) 116 H 120 H 131 H (70-110) mg/dL Calcium (8.4-10.2) mg/dL 12/25/22 12/25/22 Range/Units 04:17 06:25 Sodium 135 L (137-145) mmol/L Creatinine 0.46 L (0.66-1.25) mg/dL Glucose 146 H (74-99) mg/dL POC Glucose (mg/dL) 136 H (70-110) mg/dL Calcium 7.9 L (8.4-10.2) mg/dL Assessment and Plan Plan: Acute ischemic stroke (bilateral pontine region and right > left) and felt small focus over the right temporal region. Etiology seems embolic in nature. Has severe bilateral carotid stenosis on most recent CTA in 11/14 and on 12/18/2022 in which has right ICA 70% while left is 90% stenosis. Rule out any cardioembolic.. Failed Plavix. Currently on Brilinta, atorvastatin and aspirin, neurologically unchanged since yesterday and the patient continues to have significant motor deficits with left facial weakness, swallow deficit and left upper extremity paralysis and extreme left lower extremity weakness. Reevaluation on 12/23/2022 showed that the patient's neurologic functions are unchanged and the patient is going to undergo a right carotid endarterectomy and effective is to follow as the patient has dysphagia. The patient is post right carotid endarterectomy and the patient is postop day #2 Right carotid endarterectomy, postoperative day #2 Dysphagia secondary to CVA and the patient has a PEG tube in place Recent stroke in October 2022 in the right occipital region with left-sided weakness, slurred speech and facial droop, mainly resolved Bilateral carotid stenosis and calcified plaque at the carotid bifurcations with at least 70% stenosis on the right and 90% stenosis on the left History of coronary artery disease with previous stent placement and coronary artery bypass grafting Hypertension Hyperlipidemia Diabetes mellitus Chronic and ongoing tobacco dependence Hearing disorder Plan: Right carotid endarterectomy completed PEG tube insertion completed and patient was started on enteral feeding for nutritional support Physical therapy has been initiated Continued on statins, Brilinta, aspirin Continued on aspiration precautions x-ray from yesterday was essentially clear Currently stable and the patient is currently on 2 L of oxygen by nasal cannula We will continue to follow Neurology and vascular surgery both on the case. We'll continue to follow. We'll continue to follow
--- NOTE | 2022-12-25 14:48 | P.PN ---
Subjective Progress Note Date: 12/25/22 This is a 67-year-old gentleman with a known history of CAD, diabetes, hyperlipidemia and carotid disease who presented with CVA. He did undergo MARISELA in October that showed a preserved systolic function with moderate aortic stenosis and no evidence of shunting. On presentation he was found to have a right b rainstem infarct. He underwent right carotid endarterectomy on December 23. He's had a PEG tube placed. There's been no evidence of atrial fibrillation. He continues to work with physical therapy with minimal improvement in the movement on the left side. He is anticipating discharge to an extended care facility for rehab. Objective - Vital Signs Vital signs: Vital Signs Temp 97.4 F L 12/25/22 07:27 Pulse 101 H 12/25/22 07:27 Resp 18 12/25/22 07:27 BP 153/74 12/25/22 07:27 Pulse Ox 98 12/25/22 08:59 FiO2 50 12/24/22 08:00 Intake & Output 12/24/22 12/25/22 12/25/22 18:59 06:59 18:59 Intake Total 585 Output Total 770 1400 750 Balance -185 -1400 -750 Weight 76 kg Intake: IV 525 Sodium Chloride 0.9% 1, 525 000 ml @ 75 mls/hr IV . [id number] [facility] Rx#:[id number] Tube Feeding 60 Output: Drainage 5 Right Neck 5 Urine 765 1400 750 Other: Voiding Method Indwelling Catheter Indwelling Catheter Indwelling Catheter ABP, PAP, CO, CI - Last Documented Arterial Blood Pressure 142/50 - Exam Neck: Right side incision clean dry and intact. Face: Right side droop noted. Neurologically some improvement in the left upper extremity movement LUNGS: Clear to auscultation HEART: Regular rate and rhythm, S1, S2. No S3. systolic ejection murmur 08/30 ABDOMEN: Soft, nontender, no organomegaly, PEG tube in place EXTREMETIES: No edema - Labs CBC & Chem 7: 12/24/22 08:00 12/25/22 04:17 Labs: Abnormal Lab Results - Last 24 Hours (Table) 12/24/22 12/25/22 12/25/22 Range/Units 18:04 00:37 04:17 Sodium 135 L (137-145) mmol/L Creatinine 0.46 L (0.66-1.25) mg/dL Glucose 146 H (74-99) mg/dL POC Glucose (mg/dL) 120 H 131 H (70-110) mg/dL Calcium 7.9 L (8.4-10.2) mg/dL 12/25/22 12/25/22 Range/Units 06:25 11:28 Sodium (137-145) mmol/L Creatinine (0.66-1.25) mg/dL Glucose (74-99) mg/dL POC Glucose (mg/dL) 136 H 114 H (70-110) mg/dL Calcium (8.4-10.2) mg/dL Assessment and Plan Assessment: 1. Acute CVA with some improvement in the motion 2. History of CAD stable with no evidence of acute ischemia 3. Moderate aortic stenosis 4. Obstructive carotid disease, status post right carotid endarterectomy 5. History of diabetes 6. History of hyperlipidemia Plan: From cardiology's perspective continue current medications. Continue to increase activity as tolerated and work with physical therapy. Plan for outpatient rehab. 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 Patient was seen and examined.
--- NOTE | 2022-12-25 16:50 | P.PN ---
Subjective Progress Note Date: 12/25/22 Resting comfortably. No residuals with tube feeds. He is tolerating at 50mL/hr. Objective - Vital Signs Vital signs: Vital Signs Temp 98.1 F 12/25/22 14:00 Pulse 86 12/25/22 14:00 Resp 17 12/25/22 14:00 BP 149/77 12/25/22 14:00 Pulse Ox 97 12/25/22 14:00 FiO2 50 12/24/22 08:00 Intake & Output 12/24/22 12/25/22 12/25/22 18:59 06:59 18:59 Intake Total 585 Output Total 770 1400 900 Balance -185 -1400 -900 Weight 76 kg Intake: IV 525 Sodium Chloride 0.9% 1, 525 000 ml @ 75 mls/hr IV . [id number] [facility] Rx#:[id number] Tube Feeding 60 Output: Drainage 5 Right Neck 5 Urine 765 1400 900 Other: Voiding Method Indwelling Catheter Indwelling Catheter Indwelling Catheter ABP, PAP, CO, CI - Last Documented Arterial Blood Pressure 142/50 - Labs CBC & Chem 7: 12/24/22 08:00 12/25/22 04:17 Labs: Abnormal Lab Results - Last 24 Hours (Table) 12/24/22 12/25/22 12/25/22 Range/Units 18:04 00:37 04:17 Sodium 135 L (137-145) mmol/L Creatinine 0.46 L (0.66-1.25) mg/dL Glucose 146 H (74-99) mg/dL POC Glucose (mg/dL) 120 H 131 H (70-110) mg/dL Calcium 7.9 L (8.4-10.2) mg/dL 12/25/22 12/25/22 Range/Units 06:25 11:28 Sodium (137-145) mmol/L Creatinine (0.66-1.25) mg/dL Glucose (74-99) mg/dL POC Glucose (mg/dL) 136 H 114 H (70-110) mg/dL Calcium (8.4-10.2) mg/dL
[2022-12-25 17:43] LABS: Glucose,Whole Blood 97 mg/dL (70-110)
[2022-12-25] MEDS: ATORVASTATIN 80 MG TAB PO SCH (20:39)
[2022-12-26] MEDS: MORPHINE SULFATE 2 MG/ML SYRINGE IVP PRN (00:06)
--- NOTE | 2022-12-26 00:07 | P.PN ---
Subjective Progress Note Date: 12/26/22 This is a 67-year-old male who is being closely monitored in the intensive care unit. Patient was admitted to the hospital for stroke with imaging revealing a brainstem stroke right greater than the left. Patient has deficits of left hemiparesis as well as dysphagia. Patient underwent a PEG tube placement yesterday will be started on tube feedings today. Additionally patient was found to have bilateral internal carotid artery stenosis and is postoperative day 1 right carotid endarterectomy with vascular surgery following. Patient continues on aspirin 1-2 and a platelet therapy. Patient is being hydrated with normal saline, also on daily fluconazole. Labs today reveal a white count of 11.1, electrolytes are WNL, Kidney functions table. Blood glucose controlled in the 120s. 12/25/2022 Patient is monitored on the medical floor has been downgraded from the intensive care unit. Patient is postoperative day #2 right carotid endartectomy with plans for the left side outpatient. Patient is also postoperative day #2 PEG tube placement and has been initiated on tube feedings with goal of 60 mls/hr and is tolerating well. Patient is having bowel movements, abdomen is soft and patient has normoactive bowel sounds. Oral diflucan has been discontinued. Patient does report generalized pain today and is receiving oral tylenol and morphine as needed. Patient is currently pending insurance authorization for DC to inpatient rehab. Review of Systems Constitutional: Denied any fatigue denied any fever. Cardio vascular: denied any chest pain, palpitations Gastrointestinal: denied any nausea, vomiting, diarrhea Pulmonary: Denied any shortness of breath cough Neurologic denied any new focal deficits All inpatient medications were reviewed and appropriate changes in these medications as dictated in the interval history and assessment and plan PHYSICAL EXAMINATION: GENERAL: The patient is alert and oriented x3, not in any acute distress. Well developed, well nourished. HEENT: Pupils are round and equally reacting to light. EOMI. No scleral icterus. No conjunctival pallor. Normocephalic, atraumatic. No pharyngeal erythema. No thyromegaly. CARDIOVASCULAR: S1 and S2 present. No murmurs, rubs, or gallops. PULMONARY: Chest is clear to auscultation, no wheezing or crackles. ABDOMEN: Soft, nontender, nondistended, normoactive bowel sounds. No palpable organomegaly. MUSCULOSKELETAL: No joint swelling or deformity. EXTREMITIES: No cyanosis, clubbing, or pedal edema. NEUROLOGICAL: Mild lower extremity weakness on the left. Patient has minimal to no movement in the left upper extremity. SKIN: No rashes. Dressing in tact to the right neck. Assessment and plan Postoperative day #2 right carotid endarterectomy Postoperative day #2 PEG tube placement continues on tube feedings. Acute ischemic stroke with right brain stem as well as left brain stem and the lesser degree, patient has left hemiparesis Bilateral internal carotid artery stenosis Dysphagia Coronary artery disease with prior CABG and PCI Hypertension Hyperlipidemia COPD with no acute exacerbation Diabetes Mellitus type 2, uncontrolled with A1C of 10.0 Moderate aortic stenosis GI prophylaxis DVT prophylaxis DO NOT INTUBATE, DO NOT RESUSCITATE Plan Patient continues on dual antiplatelet therapy with aspirin and Brilinta Continues accuchecks Q6h with s/s coverage Patient has been started on tube feedings with glucerna 1.2 with goal of 60mls/hr and free water 50 mls every 4 hours. PT/OT on board and patient will require ECF on discharge The impression and plan of care has been dictated by Sarah Castillo, Nurse Practitioner as directed. Dr. Joseph MD I have performed a history and physical examination and medical decision making of this patient, discussed the same with the dictator, and agree with the dictators assessment and plan as written, documented as a scribe. Based on total visit time, I have performed more than 50% of this visit. Objective - Vital Signs Vital signs: Vital Signs Temp 97.9 F 12/25/22 18:00 Pulse 92 12/25/22 18:00 Resp 18 12/25/22 18:00 BP 145/67 12/25/22 18:00 Pulse Ox 99 12/25/22 18:00 FiO2 50 12/24/22 08:00 Intake & Output 12/25/22 12/25/22 12/26/22 06:59 18:59 06:59 Intake Total 420 Output Total 1400 900 Balance -1400 -480 Intake: Tube Feeding 420 Output: Urine 1400 900 Other: Voiding Method Indwelling Catheter Indwelling Catheter Indwelling Catheter ABP, PAP, CO, CI - Last Documented Arterial Blood Pressure 142/50 - Labs CBC & Chem 7: 12/24/22 08:00 12/25/22 04:17 Labs: Abnormal Lab Results - Last 24 Hours (Table) 06/10/1412/25/22 12/25/22 Range/Units 00:37 04:17 06:25 Sodium 135 L (137-145) mmol/L Creatinine 0.46 L (0.66-1.25) mg/dL Glucose 146 H (74-99) mg/dL POC Glucose (mg/dL) 131 H 136 H (70-110) mg/dL Calcium 7.9 L (8.4-10.2) mg/dL 12/25/22 Range/Units 11:28 Sodium (137-145) mmol/L Creatinine (0.66-1.25) mg/dL Glucose (74-99) mg/dL POC Glucose (mg/dL) 114 H (70-110) mg/dL Calcium (8.4-10.2) mg/dL Assessment and Plan Time with Patient: Less than 30
[2022-12-26] MEDS: INSULIN ASPART (NovoLOG) 100 UNIT/ML VIAL SQ SCH ×4 (00:09→18:24)
[2022-12-26 00:10] LABS: Glucose,Whole Blood 109 mg/dL (70-110)
[2022-12-26] MEDS: traMADol 50 MG TAB PO PRN ×4 (03:01→21:28)
[2022-12-26 06:21] LABS: Glucose,Whole Blood 123 mg/dL (70-110)
[2022-12-26] MEDS: Icosapent Ethyl [Icosapent Ethyl] 1 GM Capsule PO SCH ×2 (06:24→15:08)
[2022-12-26] MEDS: TICAGRELOR 90 MG TAB PO SCH ×2 (10:12→21:28)
[2022-12-26] MEDS: DAPAGLIFLOZIN PROPANEDIOL 5 MG TABLET PO SCH (10:12)
[2022-12-26] MEDS: METOPROLOL TARTRATE 50 MG TAB PO SCH ×2 (10:12→21:28)
[2022-12-26] MEDS: ASPIRIN 81 MG PO SCH (10:12)
[2022-12-26] MEDS: ESCITALOPRAM 5 MG TAB PO SCH (10:13)
[2022-12-26] MEDS: HEPARIN SODIUM,PORCINE/PF 5,000 UNIT/0.5 ML SYRINGE SQ SCH ×2 (10:13→21:28)
[2022-12-26] MEDS: LINAGLIPTIN 5 MG TABLET PO SCH (10:13)
[2022-12-26] MEDS: PANTOPRAZOLE 40 MG/10 ML VIAL IVP SCH (10:13)
[2022-12-26] MEDS: EZETIMIBE 10 MG TAB PO SCH (10:13)
[2022-12-26 11:15] LABS: Glucose,Whole Blood 132 mg/dL (70-110)
--- NOTE | 2022-12-26 12:11 | P.PN ---
Subjective Progress Note Date: 12/26/22 This is a 67-year-old male gentleman seen today in consultation in the intensive care unit. He has a history of chronic and ongoing tobacco dependence, hyperlipidemia, hypertension, diabetes mellitus, type II, coronary disease with previous coronary bypass grafting and stent placement. Recent admission in October 2022 for an acute ischemic stroke with left hemiparesis. MARISELA revealed no cardiac source for CVA. CT angiogram revealed a right internal carotid artery stenosis of 80-85% and a left internal carotid artery stenosis of 85%. He was to follow with vascular surgery in the outpatient setting. Unfortunately he presented back here to the hospital on 12/16/2022 with a one-day history of incr easing weakness slurred speech and left-sided weakness. MRI of the brain revealed acute ischemic changes interval finding within the right brainstem and to a lesser degree left brain stem. Residual signal abnormality in the right occipital lobe considered to be the old ischemic change. Angiography revealed calcified and noncalcified plaque at the carotid bifurcations with at least 70% stenosis on the right and 90% stenosis on the left. No evidence of dissection. No evidence of intracranial high-grade stenosis or intracranial aneurysm. He was transferred to the intensive care unit for closer monitoring throughout the night. He is seen today in consultation in the ICU. He is currently sitting up in bed. He is quite aphasic. Congested. Nasogastric tube is in place. He is being nourished with Glucerna at 60 ML's per hour. He has 0.9 normal saline at 75 ML's per hour. He is currently maintaining good O2 saturations in the 90s on room air. Aspiration precautions. His left side is still quite weak able to raise his left arm but his hand is weak. Not able to raise his left leg. White count 9.3. He was 16.9. Platelets 199. Sodium 136. Potassium 3.7. Bicarb 15. BUN 11. Creatinine 0.57. Glucose 112. He is continued on aspirin and Brilinta. Heparin for DVT prophylaxis. The patient is seen today 12/20/2022 in follow-up in the intensive care unit. He is currently sitting up in bed. Awake, alert. Maintaining O2 saturations in the 90s on 3 L/m per nasal cannula. He's been afebrile. Hemodynamically stable. Chest x-ray reveals patchy left basilar atelectasis. White count 10.3. Hemoglobin 16.5. Platelets 189. Sodium 136. Potassium 4.0. Bicarb 15. BUN 14. Creatinine 0.62. Glucose 144. Remains a phasic. Remains with left-sided weakness. Nasogastric tube in place receiving Glucerna 1.2 at a rate of 60 ML's per hour. Receiving free water flushes. 12/21/2022, the patient is essentially unchanged. He does have flaccid paralysis of the left upper extremity. Is able to move his left toes. Unable to have significant movement of the left lower extremity. There is facial asymmetry with left facial weakness. Unable to swallow and the patient is an NG tube in place and the patient is receiving enteral feeding for social support and currently is on glucerna at the rate of 60 mL an hour. He is also on accommodation of aspirin and Brilinta. The patient is hemodynamically stable. He is doing self suctioning. He has a congested cough. Is able to suction is AT 3. NO SIGNS OF ANY RESPIRATORY DISTRESS. HE IS ON OXYGEN AT 3 L/M NASAL CANNULA. THE WHITE COUNT 12.6 WITH A HEMOGLOBIN OF 16.6 and a platelet count is at 195. BUN is at 40 with a creatinine of 0.6 and the sodium levels of 138. He is now having any episodes of hyper or hypotension. We're allowing somewhat higher blood pressures based on his underlying recent CVA. He is on Levemir insulin 8 units and is also on tradjenta and farxiga , and he is also normal saline at rate of 75 mL an hour. Cardiac rhythm remained sinus. No other significant events overnight. Neurology and vascular surgery of both on the case regarding his carotid artery stenosis bilaterally. The chest x-ray from today is essentially clear. He has a thoracotomy scar related to previous by pass surgery. He does smoke and his current comorbid conditions include hypertension, hyperlipidemia, diabetes mellitus type 2, coronary artery disease with previous bypass surgery and previous coronary stenting. 12/22/2022, neurologically the patient is awake. Continues to have flaccid paralysis of the left upper extremity, there is some motor function, minimal motor activity in the left lower extremity. The patient is scheduled to undergo a carotid endarterectomy tomorrow by vascular surgery. He has a congested cough. At the breathing is nonlabored. He is on oxygen at 3 L. He has an NG tube in place for enteral feeding and nutritional support and the patient is currently receiving Glucerna at the rate of 60 mL an hour. The patient is tolerating his nutrition without having any major difficulties. Hemodynamically stable. Blood pressure stable. Cardiac rhythm is sinus. His blood sugars are also under adequate control. His comorbid conditions include hypertension, hyperlipidemia diabetes mellitus type 2 and he has undergone previous coronary artery bypass surgery and previous coronary stenting. Blood work from today shows a WBC count of 15.7 with a hemoglobin of 16.1 and a platelet count of 211. Sodium is at 139, BUN is at 17 with a creatinine of 0.6 and the serum bicarbs at 21. IV fluids are in the form of normal saline at the rate of 75 mL an hour. He has a Acosta catheter in place. Neurology is also on the case. I do not appreciate any major change in his neurologic function since yesterday. Echocardiogram was also completed yesterday and it showed normal LV function, moderate mitral calcification, calcification of the aortic valve with moderate degree of aortic stenosis. The peak gradient across the aortic valve was 35 mmHg. The patient remains on a combination of aspirin and Brilinta. The patient is also on Lipitor. As mentioned earlier, the patient has failed Plavix. The patient is known to have severe bilateral carotid artery stenosis based on the most recent CTA and the patient has 70% right ICA and 90% left ICA. Possibility of a cardioembolic stroke cannot be completely ruled out. The patient has bilateral ischemic stroke involving the point on midregion right more than left and a small focus over the right temporal region. 12/23/2022, the patient is neurologically stable. The patient will be taken to the operating room for a right carotid endarterectomy and the PEG tube insertion. Note that the patient was unable to swallow following his CVA and the patient was receiving enteral feeding through his NG tube and the feeding was placed on hold in preparation for today's surgery. No loss neurological deficits for now. The patient was hemodynamically stable. Echo cardiogram showed a normal LV function. The patient's cardiac rhythm is sinus and the patient was maintained on a combination of aspirin and Brilinta. On today's blood work, the white cell cause of 9.8 with a hemoglobin of 15.2 and a platelet count of 182. Sodium is at 141, BUN is at 20 with a creatinine of 0.6 and a potassium level is at 4.2. 16 2022, the patient is doing well. He does have a left facial droop and left upper extremity weakness however he seems to be able to move it better than he is able to move it laterally and sometimes raise it against gravity. No new onset focal neurological deficit. The patient underwent a right carotid endarterectomy yesterday and the patient is currently postop day #1. The patient also had a PEG tube insertion and insertion on was successful. His hemodynamics are stable. His cardiac rhythm that is sinus for now.WBC count as of 11.1 with a hemoglobin of 14 and a platelet count of 198. Sodium is at 137 with a potassium level of 3.4 (107 with a bicarb of 24. BUN is 11 with a creatinine of 59. On 12/25/2022, the patient is on a medical floor. His working with physical therapy. He does have left arm and left lower extremity weakness and left facial droop. He underwent PEG tube insertion and he also underwent a carotid endarterectomy on the right. Surgical sites are dry and clean. Patient was started on Glucerna 4 enteral feeding and nutritional support. No new onset neurological deficits. The patient is hemodynamically stable. He was moved out of the intensive care unit and currently is on a medical floor. He is on 2 L of oxygen nasal cannula with a pulse ox of 90%. Is afebrile. 12/26/2022, the patient is neurologically unchanged and the patient is receiving enteral feeding for nutritional support. No aspiration. No interval improvement no worsening of his left-sided weakness. Able to cough. Performance pulmonary toileting. Is currently on oxygen 2 L/m nasal cannula. No abdominal pain or distention. Objective - Vital Signs Vital signs: Vital Signs Temp 98.2 F 12/26/22 07:54 Pulse 88 12/26/22 07:54 Resp 19 12/26/22 07:54 BP 150/67 12/26/22 07:54 Pulse Ox 94 L 12/26/22 07:54 FiO2 50 12/24/22 08:00 Intake & Output 12/25/22 12/26/22 12/26/22 18:59 06:59 18:59 Intake Total 420 900 Output Total 900 1800 Balance -480 -900 Weight 81 kg Intake: IV 900 Sodium Chloride 0.9% 1, 900 000 ml @ 75 mls/hr IV . [id number] [facility] Rx#:[id number] Tube Feeding 420 Output: Urine 900 1800 Other: Voiding Method Indwelling Catheter Indwelling Catheter Indwelling Catheter ABP, PAP, CO, CI - Last Documented Arterial Blood Pressure 142/50 - Exam GENERAL EXAM: Alert, aphasic 67-year-old male, on room air, fairly comfortable in no apparent distress. Patient has an NG tube in place and the patient is currently on 2 L of action by nasal cannula HEAD: Normocephalic. EYES: Normal reaction of pupils, equal size. NOSE: Nasogastric tube secured in place. Clear with pink turbinates. THROAT: No erythema or exudates. NECK: No masses, no JVD. The surgical scar over the right neck area dry clean and intact CHEST: No chest wall deformity. LUNGS: Equal air entry with bilateral scattered rhonchi. CVS: S1 and S2 normal with no audible murmur, regular rhythm. ABDOMEN: No hepatosplenomegaly, normal bowel sounds, no guarding or rigidity. The patient has a PEG tube in place SPINE: No scoliosis or deformity SKIN: No rashes CENTRAL NERVOUS SYSTEM: Aphasic, tone is normal in all 4 extremities. The patient has left upper extremity paralysis and the patient has facial asymmetry with left facial weakness. He does have dysphagia. His speech is slurred and the late yet he is able to comprehend and follow commands EXTREMITIES: Left upper and lower extremity weakness. There is no peripheral edema. Peripheral pulses are intact. - Labs CBC & Chem 7: 12/24/22 08:00 12/25/22 04:17 Labs: Abnormal Lab Results - Last 24 Hours (Table) 12/25/22 12/26/22 Range/Units 11:28 06:20 POC Glucose (mg/dL) 114 H 123 H (70-110) mg/dL Assessment and Plan Plan: Acute ischemic stroke (bilateral pontine region and right > left) and felt small focus over the right temporal region. Etiology seems embolic in nature. Has severe bilateral carotid stenosis on most recent CTA in 11/14 and on 12/18/2022 in which has right ICA 70% while left is 90% stenosis. Rule out any cardioembolic.. Failed Plavix. Currently on Brilinta, atorvastatin and aspirin, neurologically unchanged since yesterday and the patient continues to have significant motor deficits with left facial weakness, swallow deficit and left upper extremity paralysis and extreme left lower extremity weakness. Reevaluation on 12/23/2022 showed that the patient's neurologic functions are unchanged and the patient is going to undergo a right carotid endarterectomy and effective is to follow as the patient has dysphagia. The patient is post right carotid endarterectomy and the patient is postop day # 3 Right carotid endarterectomy, postoperative day # 3 Dysphagia secondary to CVA and the patient has a PEG tube in place Recent stroke in October 2022 in the right occipital region with left-sided weakness, slurred speech and facial droop, mainly resolved Bilateral carotid stenosis and calcified plaque at the carotid bifurcations with at least 70% stenosis on the right and 90% stenosis on the left History of coronary artery disease with previous stent placement and coronary artery bypass grafting Hypertension Hyperlipidemia Diabetes mellitus Chronic and ongoing tobacco dependence Hearing disorder Plan: Continue same treatment Pulmonary toileting and the patient is currently on 2 L of Oxymizer nasal cannula Right carotid endarterectomy completed PEG tube insertion completed and patient was started on enteral feeding for nutritional support, the patient is receiving enteral feeding at the rate of 70 mL an hour of Valles Physical therapy has been initiated Continued on statins, Brilinta, aspirin Continued on aspiration precautions x-ray from yesterday was essentially clear Currently stable and the patient is currently on 2 L of oxygen by nasal cannula We will continue to follow Neurology and vascular surgery both on the case. We'll continue to follow. We'll continue to follow
[2022-12-26] MEDS ORDERED: bisacodyL 10 MG SUPP RECTAL STA (12:31)
--- NOTE | 2022-12-26 12:47 | P.PN ---
Subjective Progress Note Date: 12/26/22 Principal diagnosis: Patient is resting comfortably. No pain. Gastrostomy tube feeds at goal 70 mL per hour. Objective - Vital Signs Vital signs: Vital Signs Temp 98.2 F 12/26/22 07:54 Pulse 88 12/26/22 07:54 Resp 19 12/26/22 07:54 BP 150/67 12/26/22 07:54 Pulse Ox 94 L 12/26/22 07:54 FiO2 50 12/24/22 08:00 Intake & Output 12/25/22 12/26/22 12/26/22 18:59 06:59 18:59 Intake Total 420 900 350 Output Total 900 1800 Balance -480 -900 350 Weight 81 kg Intake: IV 900 Sodium Chloride 0.9% 1, 900 000 ml @ 75 mls/hr IV . [id number] [facility] Rx#:[id number] Tube Feeding 420 350 Output: Urine 900 1800 Other: Voiding Method Indwelling Catheter Indwelling Catheter Indwelling Catheter ABP, PAP, CO, CI - Last Documented Arterial Blood Pressure 142/50 - Labs CBC & Chem 7: 12/24/22 08:00 12/25/22 04:17 Labs: Abnormal Lab Results - Last 24 Hours (Table) 12/26/22 12/26/22 Range/Units 06:20 11:13 POC Glucose (mg/dL) 123 H 132 H (70-110) mg/dL
--- NOTE | 2022-12-26 15:05 | P.PN ---
Subjective Progress Note Date: 12/26/22 This is a 67-year-old male who is being closely monitored in the intensive care unit. Patient was admitted to the hospital for stroke with imaging revealing a brainstem stroke right greater than the left. Patient has deficits of left hemiparesis as well as dysphagia. Patient underwent a PEG tube placement yesterday will be started on tube feedings today. Additionally patient was found to have bilateral internal carotid artery stenosis and is postoperative day 1 right carotid endarterectomy with vascular surgery following. Patient continues on aspirin 1-2 and a platelet therapy. Patient is being hydrated with normal saline, also on daily fluconazole. Labs today reveal a white count of 11.1, electrolytes are WNL, Kidney functions table. Blood glucose controlled in the 120s. 12/25/2022 Patient is monitored on the medical floor has been downgraded from the intensive care unit. Patient is postoperative day #2 right carotid endartectomy with plans for the left side outpatient. Patient is also postoperative day #2 PEG tube placement and has been initiated on tube feedings with goal of 60 mls/hr and is tolerating well. Patient is having bowel movements, abdomen is soft and patient has normoactive bowel sounds. Oral diflucan has been discontinued. Patient does report generalized pain today and is receiving oral tylenol and morphine as needed. Patient is currently pending insurance authorization for DC to inpatient rehab. 12/26/2022 Patient is monitored on the medical floor currently postoperative day #3 right carotid endartectomy and Postop day #3 peg tube placement running glucerna 1.2 at goal of 70mls/hr. No bowel movement reported patient is nontender soft with bowel sounds throughout will be given a suppository today if that doesnt work will be given lactulose through the PEG tube. Patient reports tingling to his left foot and has been able to lift his left upper above the bed and able to grasp weakly with the left hand. Patient is breathing shallow and will be given an incentive spirometer he is encouraged to cough and deep breath. Patient will likely DC to inpatient rehab tomorrow. Review of Systems Constitutional: Denied any fatigue denied any fever. Cardio vascular: denied any chest pain, palpitations Gastrointestinal: denied any nausea, vomiting, diarrhea, no BM. Pulmonary: Denied any shortness of breath cough Neurologic denied any new focal deficits Diffuse weakness, greater on the left with tingling to the left foot. All inpatient medications were reviewed and appropriate changes in these medications as dictated in the interval history and assessment and plan PHYSICAL EXAMINATION: GENERAL: The patient is alert and oriented x3, not in any acute distress. Well developed, well nourished. HEENT: Pupils are round and equally reacting to light. EOMI. No scleral icterus. No conjunctival pallor. Normocephalic, atraumatic. No pharyngeal erythema. No thyromegaly. CARDIOVASCULAR: S1 and S2 present. No murmurs, rubs, or gallops. PULMONARY: Chest is clear to auscultation, no wheezing or crackles. ABDOMEN: Soft, nontender, nondistended, normoactive bowel sounds. No palpable organomegaly. MUSCULOSKELETAL: No joint swelling or deformity. EXTREMITIES: No cyanosis, clubbing, or pedal edema. NEUROLOGICAL: Mild lower extremity weakness on the left. Patient has minimal movement LUE able to lift off the bed and weak hand grasp. SKIN: No rashes. Dressing in tact to the right neck. Assessment and plan Postoperative day #3 right carotid endarterectomy Postoperative day #3 PEG tube placement continues on tube feedings. Acute ischemic stroke with right brain stem as well as left brain stem and the lesser degree, patient has left hemiparesis Bilateral internal carotid artery stenosis Dysphagia Coronary artery disease with prior CABG and PCI Hypertension Hyperlipidemia COPD with no acute exacerbation Diabetes Mellitus type 2, uncontrolled with A1C of 10.0 Moderate aortic stenosis GI prophylaxis DVT prophylaxis DO NOT INTUBATE, DO NOT RESUSCITATE Plan Patient continues on dual antiplatelet therapy with aspirin and Brilinta Continues accuchecks Q6h with s/s coverage Patient has been started on tube feedings with glucerna 1.2 with goal of 60mls/hr and free water 50 mls every 4 hours. Patient is on bowel regimen for constipation Encourage incentive spirometer 10 x an hour while awake. PT/OT on board and patient will require ECF on discharge The impression and plan of care has been dictated by Sarah Castillo Nurse Practitioner as directed. Dr. Joseph MD I have performed a history and physical examination and medical decision making of this patient, discussed the same with the dictator, and agree with the dictators assessment and plan as written, documented as a scribe. Based on total visit time, I have performed more than 50% of this visit. Objective - Vital Signs Vital signs: Vital Signs Temp 98.2 F 12/26/22 07:54 Pulse 88 12/26/22 07:54 Resp 19 12/26/22 07:54 BP 150/67 12/26/22 07:54 Pulse Ox 94 L 12/26/22 07:54 FiO2 50 12/24/22 08:00 Intake & Output 12/25/22 12/26/22 12/26/22 18:59 06:59 18:59 Intake Total 420 900 Output Total 900 1800 Balance -480 -900 Weight 81 kg Intake: IV 900 Sodium Chloride 0.9% 1, 900 000 ml @ 75 mls/hr IV . [id number] [facility] Rx#:[id number] Tube Feeding 420 Output: Urine 900 1800 Other: Voiding Method Indwelling Catheter Indwelling Catheter Indwelling Catheter ABP, PAP, CO, CI - Last Documented Arterial Blood Pressure 142/50 - Labs CBC & Chem 7: 12/24/22 08:00 12/25/22 04:17 Labs: Abnormal Lab Results - Last 24 Hours (Table) 12/25/22 12/26/22 Range/Units 11:28 06:20 POC Glucose (mg/dL) 114 H 123 H (70-110) mg/dL Assessment and Plan Time with Patient: Less than 30
[2022-12-26] MEDS: PHENYLEPHRINE 40 MG in SODIUM CHLORIDE 0.9% 250 ML IV SCH (15:21)
[2022-12-26] MEDS: SODIUM CHLORIDE 0.9% 1,000 ML IV SCH (15:27)
--- NOTE | 2022-12-26 16:18 | P.PN ---
Subjective Progress Note Date: 12/26/22 This is a 67-year-old gentleman with a known history of CAD, diabetes, hyperlipidemia and carotid disease who presented with CVA. He did undergo MARISELA in October that showed a preserved systolic function with moderate aortic stenosis and no evidence of shunting. On presentation he was found to have a right b rainstem infarct. He underwent right carotid endarterectomy on December 23. He's had a PEG tube placed. There's been no evidence of atrial fibrillation. He continues to work with physical therapy with minimal improvement in the movement on the left side. He is anticipating discharge to an extended care facility for rehab. 12/26/2022 Patient was seen and examined resting in bed. No change noted from yesterday. Patient has no shortness of breath, chest discomfort, palpitations or dizziness. Objective - Vital Signs Vital signs: Vital Signs Temp 97.5 F L 12/26/22 13:23 Pulse 76 12/26/22 13:23 Resp 18 12/26/22 13:23 BP 116/66 12/26/22 13:23 Pulse Ox 93 L 12/26/22 13:23 FiO2 50 12/24/22 08:00 Intake & Output 12/25/22 12/26/22 12/26/22 18:59 06:59 18:59 Intake Total 420 900 350 Output Total 900 1800 650 Balance -480 -900 -300 Weight 81 kg Intake: IV 900 Sodium Chloride 0.9% 1, 900 000 ml @ 75 mls/hr IV . [id number] [facility] Rx#:[id number] Tube Feeding 420 350 Output: Urine 900 1800 650 Other: Voiding Method Indwelling Catheter Indwelling Catheter Indwelling Catheter ABP, PAP, CO, CI - Last Documented Arterial Blood Pressure 142/50 - Exam Neck: Right dressing dry and intact. Face: Right side droop noted. Neurologically some improvement in the left upper extremity movement LUNGS: Clear to auscultation HEART: Regular rate and rhythm, S1, S2. No S3. systolic ejection murmur 08/30 ABDOMEN: Soft, nontender, no organomegaly, PEG tube in place EXTREMETIES: No edema - Labs CBC & Chem 7: 12/24/22 08:00 12/25/22 04:17 Labs: Abnormal Lab Results - Last 24 Hours (Table) 12/26/22 12/26/22 Range/Units 06:20 11:13 POC Glucose (mg/dL) 123 H 132 H (70-110) mg/dL Assessment and Plan Assessment: 1. Acute CVA with some improvement in the motion 2. History of CAD stable with no evidence of acute ischemia 3. Moderate aortic stenosis 4. Obstructive carotid disease, status post right carotid endarterectomy 5. History of diabetes 6. History of hyperlipidemia Plan: From cardiology's perspective continue current medications. Continue to increase activity as tolerated and work with physical therapy. Plan for outpatient rehab. WEIGHT TRAINING INSTRUCTOR note has been reviewed, I agree with a documented findings and plan of care. Patient was seen and examined.
[2022-12-26 16:19] LABS: Glucose,Whole Blood 128 mg/dL (70-110)
[2022-12-26] MEDS: ATORVASTATIN 80 MG TAB PO SCH (21:28)
[2022-12-26] MEDS: INSULIN DETEMIR (LEVEMIR) 100 UNIT/ML SYR SQ SCH (21:30)
[2022-12-27 00:28] LABS: Glucose,Whole Blood 145 mg/dL (70-110)
[2022-12-27] MEDS: traMADol 50 MG TAB PO PRN ×4 (00:28→22:00)
[2022-12-27] MEDS: INSULIN ASPART (NovoLOG) 100 UNIT/ML VIAL SQ SCH ×4 (01:14→17:11)
[2022-12-27 06:29] LABS: Glucose,Whole Blood 128 mg/dL (70-110)
[2022-12-27] MEDS: SODIUM CHLORIDE 0.9% 1,000 ML IV SCH ×2 (06:41→08:22)
[2022-12-27] MEDS: ASPIRIN 81 MG PO SCH (08:17)
[2022-12-27] MEDS: EZETIMIBE 10 MG TAB PO SCH (08:17)
[2022-12-27] MEDS: HEPARIN SODIUM,PORCINE/PF 5,000 UNIT/0.5 ML SYRINGE SQ SCH ×2 (08:17→21:53)
[2022-12-27] MEDS: PANTOPRAZOLE 40 MG/10 ML VIAL IVP SCH (08:17)
[2022-12-27] MEDS: DAPAGLIFLOZIN PROPANEDIOL 5 MG TABLET PO SCH (08:18)
[2022-12-27] MEDS: METOPROLOL TARTRATE 50 MG TAB PO SCH ×2 (08:18→21:54)
[2022-12-27] MEDS: ESCITALOPRAM 5 MG TAB PO SCH (08:18)
[2022-12-27] MEDS: LINAGLIPTIN 5 MG TABLET PO SCH (08:18)
[2022-12-27] MEDS: TICAGRELOR 90 MG TAB PO SCH ×2 (08:19→21:54)
[2022-12-27] MEDS: Icosapent Ethyl [Icosapent Ethyl] 1 GM Capsule PO SCH ×2 (08:21→12:07)
[2022-12-27 08:55] LABS: Basophils # (A) 0.1 k/uL (0-0.2); Basophils % (A) 1 %; Eosinophils # (A) 0.4 k/uL (0-0.7); Eosinophils % (A) 3 %; HCT 40.8 % (39.0-53.0); HGB 13.5 gm/dL (13.0-17.5); Lymphocytes # (A) 1.3 k/uL (1.0-4.8); Lymphocytes % (A) 11 %; MCH 31.4 pg (25.0-35.0); MCV 95.3 fL (80.0-100.0); Mean Platelet Volume 10.7; Monocytes # (A) 0.7 k/uL (0-1.0); Monocytes % (A) 6 %; Neutrophils # (A) 8.6 k/uL (1.3-7.7); Neutrophils % (A) 78 %; Platelet Count 234 k/uL (150-450); RBC 4.28 m/uL (4.30-5.90); RDW 14.1 % (11.5-15.5); WBC 11.1 k/uL (3.8-10.6)
[2022-12-27 09:13] LABS: African American GFR (CKD) >90 (>60 ml/min/1.73 sqM); Anion Gap 9 mmol/L; Blood Urea Nitrogen 13 mg/dL (9-20); Carbon Dioxide 27 mmol/L (22-30); Chloride 101 mmol/L (98-107); Glucose 135 mg/dL (74-99); Magnesium 1.9 mg/dL (1.6-2.3); Non-African American GFR(CKD) >90 (>60 ml/min/1.73 sqM); Potassium 3.7 mmol/L (3.5-5.1); Sodium 137 mmol/L (137-145)
--- NOTE | 2022-12-27 10:28 | P.PN ---
Subjective Progress Note Date: 12/27/22 HISTORY OF PRESENT ILLNESS: This is a 67-year-old gentleman with a known history of CAD, diabetes, hyperlipidemia and carotid disease who presented with CVA. He did undergo MARISELA in October that showed a preserved systolic function with moderate aortic stenosis and no evidence of shunting. On presentation he was found to have a right brainstem infarct. He underwent right carotid endarterectomy on December 23. He's had a PEG tube placed. There's been no evidence of atrial fibrillation. He continues to work with physical therapy with minimal improvement in the movement on the left side. He is anticipating discharge to an extended care facility for rehab. 12/26/2022 Patient was seen and examined resting in bed. No change noted from yesterday. Patient has no shortness of breath, chest discomfort, palpitations or dizziness. 12/27/2022 Patient examined this morning at the bedside. Patient denies chest pain or pressure. He denies shortness of breath. He continues to have left-sided weakness. Vital signs are stable. Discharge planning is in place for ECF. PHYSICAL EXAM: VITAL SIGNS: Reviewed. GENERAL: Well-developed in no acute distress. NECK: Supple. No JVD or thyromegaly LUNGS: Respirations even and unlabored. Lungs essentially clear to auscultation bilaterally. HEART: Regular rate and rhythm. S1 and S2 heard. Systolic murmur noted. EXTREMITIES: Left-sided weakness. No clubbing or cyanosis. Peripheral pulses intact. No lower extremity edema ASSESSMENT: 1. Acute CVA with left sided weakness 2. History of CAD stable with no evidence of acute ischemia 3. Moderate aortic stenosis 4. Obstructive carotid disease, status post right carotid endarterectomy 5. History of diabetes 6. History of hyperlipidemia PLAN: Continue current cardiac medications Patient is stable from a cardiac standpoint with no further inpatient recommendations from a cardiology perspective Discharge planning in place for ECF We will sign off. Please reconsult if needed. Nurse practitioner note has been reviewed by physician. Signing provider agrees with the documented findings, assessment, and plan of care. Objective - Vital Signs Vital signs: Vital Signs Temp 98.2 F 12/27/22 07:35 Pulse 83 12/27/22 07:35 Resp 17 12/27/22 07:35 BP 135/68 12/27/22 07:35 Pulse Ox 95 12/27/22 09:05 FiO2 50 12/24/22 08:00 Intake & Output 12/26/22 12/27/22 12/27/22 18:59 06:59 18:59 Intake Total 350 900 Output Total 650 1500 Balance -300 -600 Weight 80 kg Intake: IV 900 Sodium Chloride 0.9% 1, 900 000 ml @ 75 mls/hr IV . [id number] [facility] Rx#:[id number] Tube Feeding 350 Output: Urine 650 1500 Other: Voiding Method Indwelling Catheter Indwelling Catheter # Bowel Movements 1 1 ABP, PAP, CO, CI - Last Documented Arterial Blood Pressure 142/50 - Labs CBC & Chem 7: 12/27/22 07:08 12/27/22 07:08 Labs: Abnormal Lab Results - Last 24 Hours (Table) 12/26/22 12/26/22 12/27/22 Range/Units 11:13 16:18 00:27 WBC (3.8-10.6) k/uL RBC (4.30-5.90) m/uL Neutrophils # (1.3-7.7) k/uL Creatinine (0.66-1.25) mg/dL Glucose (74-99) mg/dL POC Glucose (mg/dL) 132 H 128 H 145 H (70-110) mg/dL Calcium (8.4-10.2) mg/dL 12/27/22 12/27/22 12/27/22 Range/Units 06:27 07:08 07:08 WBC 11.1 H (3.8-10.6) k/uL RBC 4.28 L (4.30-5.90) m/uL Neutrophils # 8.6 H (1.3-7.7) k/uL Creatinine 0.57 L (0.66-1.25) mg/dL Glucose 135 H (74-99) mg/dL POC Glucose (mg/dL) 128 H (70-110) mg/dL Calcium 8.0 L (8.4-10.2) mg/dL
[2022-12-27] MEDS: PHENYLEPHRINE 40 MG in SODIUM CHLORIDE 0.9% 250 ML IV SCH (11:43)
[2022-12-27 11:50] LABS: Glucose,Whole Blood 142 mg/dL (70-110)
--- NOTE | 2022-12-27 11:52 | P.PN ---
Subjective Progress Note Date: 12/27/22 Principal diagnosis: Carotid stenosis Patient is seen and examined as a follow-up. He has been transferred to medical surgical floor. No acute changes through the weekend. No new focal deficits. Left upper extremity movement improving. PEG tube in place. Objective - Vital Signs Vital signs: Vital Signs Temp 98.2 F 12/27/22 07:35 Pulse 83 12/27/22 07:35 Resp 17 12/27/22 07:35 BP 135/68 12/27/22 07:35 Pulse Ox 95 12/27/22 09:05 FiO2 50 12/24/22 08:00 Intake & Output 12/26/22 12/27/22 12/27/22 18:59 06:59 18:59 Intake Total 350 900 Output Total 650 1500 Balance -300 -600 Weight 80 kg Intake: IV 900 Sodium Chloride 0.9% 1, 900 000 ml @ 75 mls/hr IV . [id number] [facility] Rx#:[id number] Tube Feeding 350 Output: Urine 650 1500 Other: Voiding Method Indwelling Catheter Indwelling Catheter Indwelling Catheter # Bowel Movements 1 1 ABP, PAP, CO, CI - Last Documented Arterial Blood Pressure 142/50 - Exam General appearance: The patient is alert, oriented, appears in no acute dis tress. HET: Head is normocephalic and atraumatic. Pupils are equal and reactive. Neck: Supple. Trachea midline. Right surgical incision well approximated without drainage. Surrounding ecchymosis. Heart: Regular. Lungs: Equal expansion, normal respiratory effort. Abdomen: Soft, umbilical hernia, nondistended. PEG tube. Extremities: Normal skin color and turgor. Bilateral palpable radial pulses. Neurological: Patient with slurred speech, left facial droop. Patient able to raise left arm off of the bed. Left lower extremity weakness. Good strength and tone right upper and lower extremities. - Labs CBC & Chem 7: 12/27/22 07:08 12/27/22 07:08 Labs: Abnormal Lab Results - Last 24 Hours (Table) 12/26/22 12/27/22 12/27/22 Range/Units 16:18 00:27 06:27 WBC (3.8-10.6) k/uL RBC (4.30-5.90) m/uL Neutrophils # (1.3-7.7) k/uL Creatinine (0.66-1.25) mg/dL Glucose (74-99) mg/dL POC Glucose (mg/dL) 128 H 145 H 128 H (70-110) mg/dL Calcium (8.4-10.2) mg/dL 12/27/22 12/27/22 Range/Units 07:08 07:08 WBC 11.1 H (3.8-10.6) k/uL RBC 4.28 L (4.30-5.90) m/uL Neutrophils # 8.6 H (1.3-7.7) k/uL Creatinine 0.57 L (0.66-1.25) mg/dL Glucose 135 H (74-99) mg/dL POC Glucose (mg/dL) (70-110) mg/dL Calcium 8.0 L (8.4-10.2) mg/dL Assessment and Plan Assessment: 1. Severe bilateral internal carotid artery stenosis, symptomatic on the right. Status post right carotid endarterectomy with patch angioplasty 2. Acute ischemic stroke with left-sided weakness and slurred speech 3. Dysphagia and very to above status post PEG tube placement 4. Diabetes mellitus 5. Coronary artery disease status post CABG and stent 6. Hypertension 7. Hyperlipidemia 8. Former smoker. Plan: 1. Continue aspirin, Brilinta, atorvastatin 2. Continue ST/OT/PT 3. No activity restrictions from vascular surgery other than heavy lifting or straining. Encourage ambulation with PT 4. Blood pressure parameters per recommendations from neurology 5. No further plans on vascular surgical intervention at this time. Patient to follow-up with Dr. Acosta in 2-3 weeks. Please set up appointment prior to discharge. 6. The rest of medical management deferred to primary medical team 7. Patient is cleared for discharge from vascular surgery once otherwise medically stable/cleared. Plan is for discharge to rehab Thank you for this consultation. We will sign off at this time. The impression and plan of care has been dictated as directed. Dr. Martinez I performed a history and examination of this patient, discussed the same with the dictator. I agree with the dictator's note ,documented as a scribe. Any additional findings or plans will be noted.
[2022-12-27] MEDS: SCOPOLAMINE 1 MG/72 HR PATCH TRANSDERM SCH (12:05)
--- NOTE | 2022-12-27 12:48 | P.PN ---
Subjective Progress Note Date: 12/27/22 CHIEF COMPLAINT: CVA HISTORY OF PRESENT ILLNESS: Patient status post PEG tube placement. Tolerating tube feeds at 60 mL per hour. He reports having bowel movements and flatus. Denies any nausea vomiting. Does report minimal pain at PEG tube site. Afebrile PHYSICAL EXAM: VITAL SIGNS: Reviewed. GENERAL: no acute distress. ABDOMEN: Soft. Nondistended. Umbilical hernia reducible. PEG tube site clean dry and intact NEUROLOGIC: Awake ASSESSMENT: 1. CVA 2. Dysphagia with mild protein calorie malnutrition status post PEG tube placement PLAN: -Continue tube feeds -Continue supportive care Physician Assistant Women'S Basketball Coach note has been reviewed by physician. Signing provider agrees with the documented findings, assessment, and plan of care. Objective - Vital Signs Vital signs: Vital Signs Temp 98.2 F 12/27/22 07:35 Pulse 83 12/27/22 07:35 Resp 17 12/27/22 07:35 BP 135/68 12/27/22 07:35 Pulse Ox 95 12/27/22 09:05 FiO2 50 12/24/22 08:00 Intake & Output 12/26/22 12/27/22 12/27/22 18:59 06:59 18:59 Intake Total 350 900 Output Total 650 1500 Balance -300 -600 Weight 80 kg Intake: IV 900 Sodium Chloride 0.9% 1, 900 000 ml @ 75 mls/hr IV . [id number] [facility] Rx#:[id number] Tube Feeding 350 Output: Urine 650 1500 Other: Voiding Method Indwelling Catheter Indwelling Catheter Indwelling Catheter # Bowel Movements 1 1 ABP, PAP, CO, CI - Last Documented Arterial Blood Pressure 142/50 - Labs CBC & Chem 7: 12/27/22 07:08 12/27/22 07:08 Labs: Abnormal Lab Results - Last 24 Hours (Table) 12/26/22 12/27/22 12/27/22 Range/Units 16:18 00:27 06:27 WBC (3.8-10.6) k/uL RBC (4.30-5.90) m/uL Neutrophils # (1.3-7.7) k/uL Creatinine (0.66-1.25) mg/dL Glucose (74-99) mg/dL POC Glucose (mg/dL) 128 H 145 H 128 H (70-110) mg/dL Calcium (8.4-10.2) mg/dL 12/27/22 12/27/22 12/27/22 Range/Units 07:08 07:08 11:46 WBC 11.1 H (3.8-10.6) k/uL RBC 4.28 L (4.30-5.90) m/uL Neutrophils # 8.6 H (1.3-7.7) k/uL Creatinine 0.57 L (0.66-1.25) mg/dL Glucose 135 H (74-99) mg/dL POC Glucose (mg/dL) 142 H (70-110) mg/dL Calcium 8.0 L (8.4-10.2) mg/dL
--- NOTE | 2022-12-27 13:47 | P.PN ---
Subjective Progress Note Date: 12/27/22 This is a 67-year-old male gentleman seen today in consultation in the intensive care unit. He has a history of chronic and ongoing tobacco dependence, hyperlipidemia, hypertension, diabetes mellitus, type II, coronary disease with previous coronary bypass grafting and stent placement. Recent admission in October 2022 for an acute ischemic stroke with left hemiparesis. MARISELA revealed no cardiac source for CVA. CT angiogram revealed a right internal carotid artery stenosis of 80-85% and a left internal carotid artery stenosis of 85%. He was to follow with vascular surgery in the outpatient setting. Unfortunately he presented back here to the hospital on 12/16/2022 with a one-day history of increasing weakness slurred speech and left-sided weakness. MRI of the brain revealed acute ischemic changes interval finding within the right brainstem and to a lesser degree left brain stem. Residual signal abnormality in the right occipital lobe considered to be the old ischemic change. Angiography revealed calcified and noncalcified plaque at the carotid bifurcations with at least 70% stenosis on the right and 90% stenosis on the left. No evidence of dissection. No evidence of intracranial high-grade stenosis or intracranial aneurysm. He was transferred to the intensive care unit for closer monitoring throughout the night. He is seen today in consultation in the ICU. He is currently sitting up in bed. He is quite aphasic. Congested. Nasogastric tube is in place. He is being nourished with Glucerna at 60 ML's per hour. He has 0.9 normal saline at 75 ML's per hour. He is currently maintaining good O2 saturations in the 90s on room air. Aspiration precautions. His left side is still quite weak able to raise his left arm but his hand is weak. Not able to raise his left leg. White count 9.3. He was 16.9. Platelets 199. Sodium 136. Potassium 3.7. Bicarb 15. BUN 11. Creatinine 0.57. Glucose 112. He is continued on aspirin and Brilinta. Heparin for DVT prophylaxis. The patient is seen today 12/20/2022 in follow-up in the intensive care unit. He is currently sitting up in bed. Awake, alert. Maintaining O2 saturations in the 90s on 3 L/m per nasal cannula. He's been afebrile. Hemodynamically stable. Chest x-ray reveals patchy left basilar atelectasis. White count 10.3. Hemoglobin 16.5. Platelets 189. Sodium 136. Potassium 4.0. Bicarb 15. BUN 14. Creatinine 0.62. Glucose 144. Remains a phasic. Remains with left-sided weakness. Nasogastric tube in place receiving Glucerna 1.2 at a rate of 60 ML's per hour. Receiving free water flushes. The patient is seen today 12/27/2022 in follow-up on the regular medical floor. He is currently resting fairly comfortable in bed. Awake and alert. He remains with significant left-sided weakness. The left-sided facial droop. He did undergo right carotid endarterectomy on 12/23/2022. Maintaining O2 saturation in the 90s on 2 L/m per nasal cannula. Afebrile. Hemodynamically stable. He did undergo PEG tube insertion. He continues to be nourished with Glucerna at 60 ML's per hour. White count 11.1. Hemoglobin 13.5. Platelets 234. Sodium 137. Potassium 3.7. Bicarb 27. BUN 13. Creatinine 0.57. Glucose 135. He is maintained on aspirin and Brilinta. Heparin for DVT prophylaxis. Objective - Vital Signs Vital signs: Vital Signs Temp 98.2 F 12/27/22 07:35 Pulse 83 12/27/22 07:35 Resp 17 12/27/22 07:35 BP 135/68 12/27/22 07:35 Pulse Ox 95 12/27/22 09:05 FiO2 50 12/24/22 08:00 Intake & Output 12/26/22 12/27/22 12/27/22 18:59 06:59 18:59 Intake Total 350 900 Output Total 650 1500 Balance -300 -600 Weight 80 kg Intake: IV 900 Sodium Chloride 0.9% 1, 900 000 ml @ 75 mls/hr IV . [id number] Rx#:[id number] Tube Feeding 350 Output: Urine 650 1500 Other: Voiding Method Indwelling Catheter Indwelling Catheter Indwelling Catheter # Bowel Movements 1 1 ABP, PAP, CO, CI - Last Documented Arterial Blood Pressure 142/50 - Exam GENERAL EXAM: Alert, aphasic 67-year-old male, on 2 L nasal cannula, fairly comfortable in no apparent distress. HEAD: Normocephalic. Sided facial droop. EYES: Normal reaction of pupils, equal size. NOSE: Nasogastric tube secured in place. Clear with pink turbinates. THROAT: No erythema or exudates. NECK: No masses, no JVD. CHEST: No chest wall deformity. LUNGS: Equal air entry with bilateral scattered rhonchi. CVS: S1 and S2 normal with no audible murmur, regular rhythm. ABDOMEN: PEG tube exit site clean and dry. No hepatosplenomegaly, normal bowel sounds, no guarding or rigidity. SPINE: No scoliosis or deformity SKIN: No rashes CENTRAL NERVOUS SYSTEM: Aphasic, tone is normal in all 4 extremities. EXTREMITIES: Left upper and lower extremity weakness. There is no peripheral edema. Peripheral pulses are intact. - Labs CBC & Chem 7: 12/27/22 07:08 12/27/22 07:08 Labs: Abnormal Lab Results - Last 24 Hours (Table) 12/26/22 12/27/22 12/27/22 Range/Units 16:18 00:27 06:27 WBC (3.8-10.6) k/uL RBC (4.30-5.90) m/uL Neutrophils # (1.3-7.7) k/uL Creatinine (0.66-1.25) mg/dL Glucose (74-99) mg/dL POC Glucose (mg/dL) 128 H 145 H 128 H (70-110) mg/dL Calcium (8.4-10.2) mg/dL 12/27/22 12/27/22 12/27/22 Range/Units 07:08 07:08 11:46 WBC 11.1 H (3.8-10.6) k/uL RBC 4.28 L (4.30-5.90) m/uL Neutrophils # 8.6 H (1.3-7.7) k/uL Creatinine 0.57 L (0.66-1.25) mg/dL Glucose 135 H (74-99) mg/dL POC Glucose (mg/dL) 142 H (70-110) mg/dL Calcium 8.0 L (8.4-10.2) mg/dL Assessment and Plan Assessment: Acute ischemic stroke involving the bilateral brainstem over pontine region right greater than left and a small focus over the right temporal region. Suspect embolic in nature. Failed Plavix. Currently on Brilinta, atorvastatin and aspirin Recent stroke in October 2022 in the right occipital region with left-sided weakne ss, slurred speech and facial droop, mainly resolved Bilateral carotid stenosis and calcified plaque at the carotid bifurcations with at least 70% stenosis on the right and 90% stenosis on the left. Status post right carotid endarterectomy on 12/23/2022 Aphasia secondary to above status post PEG tube placement on 12/23/2022 History of coronary artery disease with previous stent placement and coronary artery bypass grafting Hypertension Hyperlipidemia Diabetes mellitus Chronic and ongoing tobacco dependence Hearing disorder Plan: The patient was seen and evaluated Medications and labs reviewed Continued on statins, Brilinta, aspirin PEG tube placed, currently on Glucerna Plan is for inpatient versus subacute rehabilitation We will continue to follow I have personally seen and examined the patient, performed the documentation and the assessment and plan as written. Number of minutes spent on the visit: 10.
[2022-12-27 17:12] LABS: Glucose,Whole Blood 129 mg/dL (70-110)
--- NOTE | 2022-12-27 19:35 | P.PN ---
Subjective Progress Note Date: 12/27/22 HISTORY OF PRESENT ILLNESS This is a 67-year-old male with past medical history of diabetes mellitus type 2, hypertension, hyperlipidemia, history of SD in 2010 status post stent of the circumflex, known to have triple-vessel coronary artery disease with totally occluded collateralized right coronary artery, status post coronary artery bypass grafting using the left internal mammary artery to the left anterior descending artery, left radial artery from the aorta to the obtuse marginal artery, reverse saphenous vein graft from the aorta to the posterior descending artery, overall preserved left ventricular function, mild aortic stenosis, mild COPD with preoperative FEV1 63% of predicted, obesity, umbilical and epigastric hernia. Patient presented to the hospital due to increasing weakness and sl urred speech with history of a stroke a month ago that affected his speech and the left side of his body and was discharged on 11/08. During the hospitalization, Echocardiogram revealed EF of 55-60%, mild LVH, moderate mitral annular calcification, trace mitral regurgitation, moderate aortic stenosis, mild tricuspid regurgitation. Patient underwent MARISELA with Dr. Mckeon which revealed no cardiac source for CVA. Mild mitral and tricuspid regurgitation. Moderate aortic stenosis with mean gradient of 23 mmHg. Patient was evaluated by therapies with recommendations for home. Cardiology planned for outpatient stress testing with Dr. Mckeon and patient was to follow-up with vascular surgery regarding bilateral carotid stenosis. Patient really has had completely cover of his left-sided weakness and slurred speech. Family noticed that patient was having some difficulty with balance and walking and he started complaining of a headache and pressure behind his eye and not feeling well in general. He also was noted have incontinence and did not realize he was incontinent. Then he developed significant weakness on the left side and slurred speech and difficulty swallowing and presented to [facility] for further evaluation. Patient presents to the hospital with increased weakness and slurred speech that had progressed over the last 48 hours along with difficulty ambulating. Initial blood pressure was 109/89. WBC 11.6, hemoglobin 16.4, platelet count 218. Electrolytes are normal, creatinine 0.68. Blood sugar 192. Troponin negative. EKG sinus rhythm with no acute ST changes. CAT scan of the brain revealed no acute findings. Consult in place with vascular surgery with plans for carotid endarterectomy during this hospitalization, consult with cardiology for surgical clearance. 12/17: Patient is seen today on the cardiac stepdown unit. Patient has been seen by cardiology and cleared for carotid endarterectomy knowing that he is at intermediate risk for perioperative complications. Patient was seen by speech therapy and recommended nothing by mouth patient unable to pass a bedside swallow evaluation by speech. Patient is not safe to undergo modified barium swallow at this time. We will plan to place NG tube for patient to get his medications. Patient is also been seen by PT OT. He continues to have difficulty weakness on the left side along with expressive aphasia. Patient has been afebrile, heart rate 91, blood pressure 148/70, pulse ox 90% on room air. Blood sugars are running between 139-180. Neurology has discontinued Plavix is thought to have failed treatment and started Brilinta along with aspirin 81 mg daily, Lipitor 81 mg daily plan for permissive hypertension for the next 24 hours. Carotid ultrasound revealed less than 50% stenosis of the right carotid bifurcation, 50-69% stenosis on the left. 12/18: Patient did have an NG tube placement yesterday because the patient is not able to swallow anything at this point in time, due to his acute ischemic stroke in the right brainstem unless to the left breast and, with an old right occipital stroke, patient will be maintained on Brilinta 90 mg orally twice every day. Aspirin 81 mg once every day, and maximum dose of statin, neurology as well as vascular surgeon is following, patient will require intervention of his significant carotid artery stenosis, patient also is very noncompliant with medications treatment and follow-ups, we will continue to monitor the patient very closely, his daughters were at the bedside and updated about his current condition his prognosis overall is very guarded. 12/19: Patient was moved into the intensive care unit for better monitoring due to his bilateral brainstem stroke right more than left and prior history of right occipital infarct, currently on Brilinta 90 mg twice every day, baby aspirin 81 mg once every day, atorvastatin 80 mg once every day, Zetia 10 mg every day, neurology swallowing, continue tube feeding, continue NG tube, aspiration precautions, discussed with his daughter and his ode status and they decided on NO CODE for now and they will discuss with vascular the options of surgical intervention and the risks vs benefits at this stage of his illness 12/20: Patient is about the same is laying down in bed he appears to be weaker today, he continues to have some coughing, he is not able to handle his secretions, currently has an NG tube in place, he is doing his own suctioning of his oral secretions, he has bee on tube feeding, we will continue to monitor the patient very closely, according to the family the patient is very depressed we will start the patient on Lexapro 5 mg per NG tube once every day. 12/21: Patient is sitting up in bed is about the same, he denies any chest pain, he continues to be aphasic, he continues to have significant issues with handling his secretions, patient was started yesterday on Lexapro 5 mg per NG tube for his depression, the plan is to continue current treatment plan, the family will decide on the vascular surgery I believe he is on standby for carotid endarterectomy on 12/22: Patient is about the same he is not doing better, he continues to have an NG tube in place, this is not a long-term solution at this time, patient will require to have a PEG tube placement for long-term tube feeding, and medication use. Patient is supposed to go for a carotid endarterectomy tomorrow morning, patient has been followed by multiple specialties prognosis very guarded patient is no code at this time he will require long-term care facility post discharge from the hospital. 12/23: Patient is status post right carotid endarterectomy as well as PEG tube placement is laying down in bed in no apparent distress, he denies any chest pain, shortness breath, he continues to be somewhat aphasic, patient appears to be a bit better today than yesterday, the plan is to transition the patient to extended care facility for physical therapy rehabilitation, he continues to be weaker on the left side, more movement in the left lower extremity than the left upper extremity. 12/27: patient is laying down in bed in no apparent distress, he continues to have minimal coughing, he continues to have a significant dysphagia, currently had a PEG tube in place, and underwent right carotid endarterectomy, the plan is to transfer the patient to extended care facility hopefully the next 1 or 2 days for physical therapy and rehabilitation. Patient continues to be somewhat depressed, we will increase Lexapro to 10 mg per PEG tube once every day. REVIEW OF SYSTEMS Constitutional: No fever, no chills, no night sweats. No weight change. Reports left weakness. No daytime sleepiness. HEENT: Reports no headache. No blurred vision or double vision, no loss of vision. No loss of Hearing, no ringing in the ears, no dizziness. No nasal drainage or congestion. No epistaxis. No sore throat. Lungs: No shortness of breath, cough, no sputum production. No wheezing. Cardiovascular: No chest pain, no lower extremity edema. No palpitations. No paroxysmal nocturnal dyspnea. No orthopnea. No lightheadedness or dizziness. No syncopal episodes. Abdominal: No abdominal pain. No nausea, vomiting. No diarrhea. No constipation. No bloody or tarry stools. No loss of appetite. Genitourinary: No dysuria, increased frequency, urgency. No urinary retention. Musculoskeletal: No myalgias. Noted muscle weakness left side, noted gait dysfunction, no frequent falls. Chronic back pain, Integumentary: No wounds, no lesions. No rash or pruritus. No unusual bruising. No change in hair or nails. Neurologic: Reports slurred speech and weakness. Noted facial droop. Noted change in mentation. No head injury. Psychiatric: positive for depression. No anxiety. No mood swings. Endocrine: No abnormal blood sugars. No weight change. No excessive sweating or thirst. No cold intolerance. PHYSICAL EXAMINATION Gen: This is a 63-year-old male. He is sitting up in bed and appears to be comfortable and in no acute distress. Family members at bedside. HEENT: Head is atraumatic, normocephalic. Pupils equal, round. Sclerae is anicteric. Cortisone place to the right internal jugular. NECK: Supple. No JVD. No lymphadenopathy. No thyromegaly. LUNGS: Diminished bilaterally but otherwise clear to auscultation. No wheezes or rhonchi. No intercostal retractions. HEART: Regular rate and rhythm. 2/6 systolic ejection murmur. ABDOMEN: Soft. Bowel sounds are present. No masses. No tenderness. Acosta catheter draining clear lois urine. EXTREMITIES: No pedal edema. No calf tenderness. NEUROLOGICAL: Patient is awake, alert, weakness on the left, aphasia. ASSESSMENT AND PLAN: 1. Post operative day #4 status post right carotid endarterectomy And PEG tube placement. Continue treatment as per vascular surgery. tube feeding was started. 2. Acute ischemic CVA in the right brain stem and to a lesser degree in the left brain stem. we will continue with ASA 81 mg , Brilinta 90 mg bid and Atorvastatin 80 mg , Zetia 10 mg. 3. Acute ischemic stroke with left hemiparesis . Continue current treatment plan. 4. Bilateral internal carotid artery stenosis. Post carotid endarterectomy. 5. Dysphagia Due to brainstem stroke status post PEG tube placement 6. Coronary artery disease status post 3 vessel CABG details above as well as previous stenting of circumflex. Continue patient on aspirin, Lipitor and zetia 7. Hypertension and hypertensive cardiovascular disease. Continue Lopressor 50 mg twice daily, we will continue to monitor BP very closely. 8. Hyperlipidemia. Continue Lipitor 80 mg daily, Zetia 10 mg daily. 9. Mild COPD, stable without exacerbation 10. Diabetes mellitus type 2. Continue patient on Levemir 15 units daily, Farxiga 5 mg daily, Tradjenta 5 mg daily, NovoLog insulin scale before meals and at bedtime. 11. Moderate aortic stenosis. Cardiology is following 12. GI prophylaxis. Protonix 40 mg daily. 13. DVT prophylaxis. Heparin 5000 units SC q12 hours. 14. Prognosis is very guarded. 15. he will require ECF post hospitalization 16. NO CODE status discussed with patient's and his daughter at the bedside 17. Depression. increase Lexapro to 10 mg daily. 18. Overall prognosis is very guarded. 19. perinatal social worker consultation for ECF placement Objective - Vital Signs Vital signs: Vital Signs Temp 98.1 F 12/27/22 13:45 Pulse 76 12/27/22 13:45 Resp 18 12/27/22 13:45 BP 117/69 12/27/22 13:45 Pulse Ox 94 L 12/27/22 13:45 FiO2 50 12/24/22 08:00 Intake & Output 12/27/22 12/27/22 12/28/22 06:59 18:59 06:59 Intake Total 900 900 Output Total 1500 1900 Balance -600 -1000 Weight 80 kg Intake: IV 900 900 Sodium Chloride 0.9% 1, 900 900 000 ml @ 75 mls/hr IV . [id number] [facility] Rx#:[id number] Output: Urine 1500 1900 Other: Voiding Method Indwelling Catheter Indwelling Catheter # Bowel Movements 1 1 ABP, PAP, CO, CI - Last Documented Arterial Blood Pressure 142/50 - Labs CBC & Chem 7: 12/27/22 07:08 12/27/22 07:08 Labs: Abnormal Lab Results - Last 24 Hours (Table) 12/27/22 12/27/22 12/27/22 Range/Units 00:27 06:27 07:08 WBC 11.1 H (3.8-10.6) k/uL RBC 4.28 L (4.30-5.90) m/uL Neutrophils # 8.6 H (1.3-7.7) k/uL Creatinine (0.66-1.25) mg/dL Glucose (74-99) mg/dL POC Glucose (mg/dL) 145 H 128 H (70-110) mg/dL Calcium (8.4-10.2) mg/dL 12/27/22 12/27/22 12/27/22 Range/Units 07:08 11:46 17:10 WBC (3.8-10.6) k/uL RBC (4.30-5.90) m/uL Neutrophils # (1.3-7.7) k/uL Creatinine 0.57 L (0.66-1.25) mg/dL Glucose 135 H (74-99) mg/dL POC Glucose (mg/dL) 142 H 129 H (70-110) mg/dL Calcium 8.0 L (8.4-10.2) mg/dL
[2022-12-27 21:22] LABS: Glucose,Whole Blood 135 mg/dL (70-110)
[2022-12-27] MEDS: INSULIN DETEMIR (LEVEMIR) 100 UNIT/ML SYR SQ SCH (21:53)
[2022-12-27] MEDS: ATORVASTATIN 80 MG TAB PO SCH (21:54)
[2022-12-28] MEDS: INSULIN ASPART (NovoLOG) 100 UNIT/ML VIAL SQ SCH ×4 (00:12→17:38)
[2022-12-28 06:02] LABS: Glucose,Whole Blood 162 mg/dL (70-110)
[2022-12-28] MEDS: PHENYLEPHRINE 40 MG in SODIUM CHLORIDE 0.9% 250 ML IV SCH (06:18)
[2022-12-28] MEDS: SODIUM CHLORIDE 0.9% 1,000 ML IV SCH ×2 (06:18→19:35)
[2022-12-28] MEDS: traMADol 50 MG TAB PO PRN ×2 (06:19→21:20)
[2022-12-28 07:54] LABS: Basophils # (A) 0.1 k/uL (0-0.2); Basophils % (A) 1 %; Eosinophils # (A) 0.5 k/uL (0-0.7); Eosinophils % (A) 4 %; HCT 39.4 % (39.0-53.0); HGB 13.1 gm/dL (13.0-17.5); Lymphocytes # (A) 1.5 k/uL (1.0-4.8); Lymphocytes % (A) 12 %; MCH 31.6 pg (25.0-35.0); MCHC 33.3 g/dL (31.0-37.0); Mean Platelet Volume 10.4; Monocytes # (A) 0.6 k/uL (0-1.0); Monocytes % (A) 5 %; Neutrophils # (A) 9.9 k/uL (1.3-7.7); Neutrophils % (A) 78 %; Platelet Count 244 k/uL (150-450); RBC 4.15 m/uL (4.30-5.90); RDW 14.1 % (11.5-15.5); WBC 12.7 k/uL (3.8-10.6)
[2022-12-28] MEDS: Icosapent Ethyl [Icosapent Ethyl] 1 GM Capsule PO SCH ×2 (08:10→17:38)
[2022-12-28 08:34] LABS: ALT 12 U/L (4-49); AST 21 U/L (17-59); African American GFR (CKD) >90 (>60 ml/min/1.73 sqM); Albumin 2.7 g/dL (3.5-5.0); Alkaline Phosphatase 97 U/L (38-126); Anion Gap 6 mmol/L; Blood Urea Nitrogen 14 mg/dL (9-20); Calcium 7.9 mg/dL (8.4-10.2); Carbon Dioxide 27 mmol/L (22-30); Chloride 102 mmol/L (98-107); Globulin 2.8 g/dL; Glucose 140 mg/dL (74-99); Non-African American GFR(CKD) >90 (>60 ml/min/1.73 sqM); Potassium 3.9 mmol/L (3.5-5.1); Sodium 135 mmol/L (137-145); Total Bilirubin 0.6 mg/dL (0.2-1.3); Total Protein 5.5 g/dL (6.3-8.2)
[2022-12-28 11:18] LABS: Glucose,Whole Blood 127 mg/dL (70-110)
[2022-12-28] MEDS ORDERED: MORPHINE SULFATE 4 MG/ML SYRINGE IVP STA (12:14)
[2022-12-28] MEDS ORDERED: IOPAMIDOL CONTRAST (ORAL USE) VIAL PO PRN (12:14)
[2022-12-28] MEDS: HEPARIN SODIUM,PORCINE/PF 5,000 UNIT/0.5 ML SYRINGE SQ SCH ×2 (12:54→21:19)
--- NOTE | 2022-12-28 13:46 | P.PN ---
Subjective Progress Note Date: 12/28/22 CHIEF COMPLAINT: CVA HISTORY OF PRESENT ILLNESS: Patient status post PEG tube placement on 12/23/22. Patient complains of increased abdominal pain at PEG tube site. There is drainage at the PEG tube site that looks like tube feeds. Drainage occurs when patient coughs. Tube feeds had been at 60 mL's per hour. No residual. Patient reports having bowel movements and flatus. Denies any nausea or vomiting. Afebrile. WBC 12.7 Hgb 13.1 platelets 244 patient had modified barium swallow eval with speech therapy and still showing minimal aspiration with nectar thick liquids PHYSICAL EXAM: VITAL SIGNS: Reviewed. GENERAL: no acute distress. ABDOMEN: Soft. Nondistended. Umbilical hernia reducible. PEG tube site with tube feed drainage noted with palpation and when patient coughs. There is dried blood. NEUROLOGIC: Awake ASSESSMENT: 1. CVA 2. Dysphagia with mild protein calorie malnutrition status post PEG tube placement PLAN: -Placed tube feeds on hold -Check computed tomography scan abdomen and pelvis with contrast through PEG tube for further evaluation of PEG tube placement Physician Resident Care Spec note has been reviewed by physician. Signing provider agrees with the documented findings, assessment, and plan of care. Objective - Vital Signs Vital signs: Vital Signs Temp 98.0 F 12/28/22 06:59 Pulse 82 12/28/22 06:59 Resp 17 12/28/22 06:59 BP 118/64 12/28/22 06:59 Pulse Ox 94 L 12/28/22 06:59 FiO2 50 12/24/22 08:00 Intake & Output 12/27/22 12/28/22 12/28/22 18:59 06:59 18:59 Intake Total 900 1740 Output Total 1900 1300 Balance -1000 440 Weight 80 kg Intake: IV 900 900 Sodium Chloride 0.9% 1, 900 900 000 ml @ 75 mls/hr IV . [id number] [facility] Rx#:[id number] Tube Feeding 720 Other 120 Output: Urine 1900 1300 Other: Voiding Method Indwelling Catheter Indwelling Catheter # Bowel Movements 1 ABP, PAP, CO, CI - Last Documented Arterial Blood Pressure 142/50 - Labs CBC & Chem 7: 12/28/22 07:00 12/28/22 07:00 Labs: Abnormal Lab Results - Last 24 Hours (Table) 12/27/22 12/27/22 12/27/22 Range/Units 11:46 17:10 21:21 WBC (3.8-10.6) k/uL RBC (4.30-5.90) m/uL Neutrophils # (1.3-7.7) k/uL Sodium (137-145) mmol/L Creatinine (0.66-1.25) mg/dL Glucose (74-99) mg/dL POC Glucose (mg/dL) 142 H 129 H 135 H (70-110) mg/dL Calcium (8.4-10.2) mg/dL Total Protein (6.3-8.2) g/dL Albumin (3.5-5.0) g/dL 12/28/22 12/28/22 12/28/22 Range/Units 06:01 07:00 07:00 WBC 12.7 H (3.8-10.6) k/uL RBC 4.15 L (4.30-5.90) m/uL Neutrophils # 9.9 H (1.3-7.7) k/uL Sodium 135 L (137-145) mmol/L Creatinine 0.55 L (0.66-1.25) mg/dL Glucose 140 H (74-99) mg/dL POC Glucose (mg/dL) 162 H (70-110) mg/dL Calcium 7.9 L (8.4-10.2) mg/dL Total Protein 5.5 L (6.3-8.2) g/dL Albumin 2.7 L (3.5-5.0) g/dL
--- NOTE | 2022-12-28 14:17 | P.PN ---
Subjective Progress Note Date: 12/28/22 This is a 67-year-old male gentleman seen today in consultation in the intensive care unit. He has a history of chronic and ongoing tobacco dependence, hyperlipidemia, hypertension, diabetes mellitus, type II, coronary disease with previous coronary bypass grafting and stent placement. Recent admission in October 2022 for an acute ischemic stroke with left hemiparesis. MARISELA revealed no cardiac source for CVA. CT angiogram revealed a right internal carotid artery stenosis of 80-85% and a left internal carotid artery stenosis of 85%. He was to follow with vascular surgery in the outpatient setting. Unfortunately he presented back here to the hospital on 12/16/2022 with a one-day history of increasing weakness slurred speech and left-sided weakness. MRI of the brain revealed acute ischemic changes interval finding within the right brainstem and to a lesser degree left brain stem. Residual signal abnormality in the right occipital lobe considered to be the old ischemic change. Angiography revealed calcified and noncalcified plaque at the carotid bifurcations with at least 70% stenosis on the right and 90% stenosis on the left. No evidence of dissection. No evidence of intracranial high-grade stenosis or intracranial aneurysm. He was transferred to the intensive care unit for closer monitoring throughout the night. He is seen today in consultation in the ICU. He is currently sitting up in bed. He is quite aphasic. Congested. Nasogastric tube is in place. He is being nourished with Glucerna at 60 ML's per hour. He has 0.9 normal saline at 75 ML's per hour. He is currently maintaining good O2 saturations in the 90s on room air. Aspiration precautions. His left side is still quite weak able to raise his left arm but his hand is weak. Not able to raise his left leg. White count 9.3. He was 16.9. Platelets 199. Sodium 136. Potassium 3.7. Bicarb 15. BUN 11. Creatinine 0.57. Glucose 112. He is continued on aspirin and Brilinta. Heparin for DVT prophylaxis. The patient is seen today 12/20/2022 in follow-up in the intensive care unit. He is currently sitting up in bed. Awake, alert. Maintaining O2 saturations in the 90s on 3 L/m per nasal cannula. He's been afebrile. Hemodynamically stable. Chest x-ray reveals patchy left basilar atelectasis. White count 10.3. Hemoglobin 16.5. Platelets 189. Sodium 136. Potassium 4.0. Bicarb 15. BUN 14. Creatinine 0.62. Glucose 144. Remains a phasic. Remains with left-sided weakness. Nasogastric tube in place receiving Glucerna 1.2 at a rate of 60 ML's per hour. Receiving free water flushes. The patient is seen today 12/27/2022 in follow-up on the regular medical floor. He is currently resting fairly comfortable in bed. Awake and alert. He remains with significant left-sided weakness. The left-sided facial droop. He did undergo right carotid endarterectomy on 12/23/2022. Maintaining O2 saturation in the 90s on 2 L/m per nasal cannula. Afebrile. Hemodynamically stable. He did undergo PEG tube insertion. He continues to be nourished with Glucerna at 60 ML's per hour. White count 11.1. Hemoglobin 13.5. Platelets 234. Sodium 137. Potassium 3.7. Bicarb 27. BUN 13. Creatinine 0.57. Glucose 135. He is maintained on aspirin and Brilinta. Heparin for DVT prophylaxis. The patient is seen today 12/28/2022 in follow-up on the regular medical floor. He is awake and alert in no acute distress. Not much improvement today compared to yesterday. Continues with left-sided weakness. Facial droop. White count 12.7. Hemodynamically 13.1. Sodium 135. Potassium 3.9. Bicarb 27. BUN 14. Creatinine 0.55. Glucose 140. Plan is for barium swallow today. The patient has been having some discomfort at the PEG tube site. Tube feedings on hold. Plan is for computed tomography scan of the abdomen and pelvis without contrast today. He remains on Brilinta, aspirin and statins. Heparin for DVT prophylaxis per Objective - Vital Signs Vital signs: Vital Signs Temp 98.0 F 12/28/22 06:59 Pulse 82 12/28/22 06:59 Resp 17 12/28/22 06:59 BP 118/64 12/28/22 06:59 Pulse Ox 94 L 12/28/22 06:59 FiO2 50 12/24/22 08:00 Intake & Output 12/27/22 12/28/22 12/28/22 18:59 06:59 18:59 Intake Total 900 1740 Output Total 1900 1300 Balance -1000 440 Weight 80 kg Intake: IV 900 900 Sodium Chloride 0.9% 1, 900 900 000 ml @ 75 mls/hr IV . [id number] [facility] Rx#:[id number] Tube Feeding 720 Other 120 Output: Urine 1900 1300 Other: Voiding Method Indwelling Catheter Indwelling Catheter # Bowel Movements 1 ABP, PAP, CO, CI - Last Documented Arterial Blood Pressure 142/50 - Exam GENERAL EXAM: Alert, aphasic 67-year-old male, sitting up in bed, on 2 L nasal cannula, fairly comfortable in no apparent distress. HEAD: Normocephalic. Sided facial droop. EYES: Normal reaction of pupils, equal size. NOSE: Nasogastric tube secured in place. Clear with pink turbinates. THROAT: No erythema or exudates. NECK: No masses, no JVD. CHEST: No chest wall deformity. LUNGS: Equal air entry with bilateral scattered rhonchi. CVS: S1 and S2 normal with no audible murmur, regular rhythm. ABDOMEN: Some discomfort at PEG tube site. PEG tube exit site clean and dry. No hepatosplenomegaly, normal bowel sounds, no guarding or rigidity. SPINE: No scoliosis or deformity SKIN: No rashes CENTRAL NERVOUS SYSTEM: Aphasic, tone is normal in all 4 extremities. EXTREMITIES: Left upper and lower extremity weakness. There is no peripheral edema. Peripheral pulses are intact. - Labs CBC & Chem 7: 12/28/22 07:00 12/28/22 07:00 Labs: Abnormal Lab Results - Last 24 Hours (Table) 12/27/22 12/27/22 12/28/22 Range/Units 17:10 21:21 06:01 WBC (3.8-10.6) k/uL RBC (4.30-5.90) m/uL Neutrophils # (1.3-7.7) k/uL Sodium (137-145) mmol/L Creatinine (0.66-1.25) mg/dL Glucose (74-99) mg/dL POC Glucose (mg/dL) 129 H 135 H 162 H (70-110) mg/dL Calcium (8.4-10.2) mg/dL Total Protein (6.3-8.2) g/dL Albumin (3.5-5.0) g/dL 12/28/22 12/28/22 12/28/22 Range/Units 07:00 07:00 11:16 WBC 12.7 H (3.8-10.6) k/uL RBC 4.15 L (4.30-5.90) m/uL Neutrophils # 9.9 H (1.3-7.7) k/uL Sodium 135 L (137-145) mmol/L Creatinine 0.55 L (0.66-1.25) mg/dL Glucose 140 H (74-99) mg/dL POC Glucose (mg/dL) 127 H (70-110) mg/dL Calcium 7.9 L (8.4-10.2) mg/dL Total Protein 5.5 L (6.3-8.2) g/dL Albumin 2.7 L (3.5-5.0) g/dL Assessment and Plan Assessment: Acute ischemic stroke involving the bilateral brainstem over pontine region right greater than left and a small focus over the right temporal region. Suspect embolic in nature. Failed Plavix. Currently on Brilinta, atorvastatin and aspirin Recent stroke in October 2022 in the right occipital region with left-sided weakness, slurred speech and facial droop, mainly resolved Bilateral carotid stenosis and calcified plaque at the carotid bifurcations with at least 70% stenosis on the right and 90% stenosis on the left. Status post right carotid endarterectomy on 12/23/2022 Aphasia secondary to above status post PEG tube placement on 12/23/2022. Having pain at PEG tube site today 12/28/2022. Computed tomography scan of the abdomen pending History of coronary artery disease with previous stent placement and coronary artery bypass grafting Hypertension Hyperlipidemia Diabetes mellitus Chronic and ongoing tobacco dependence Hearing disorder Plan: The patient was seen and evaluated Medications and labs reviewed Continued on statins, Brilinta, aspirin Barium swallow results pending Computed tomography scan of the abdomen are pending Tube feedings currently on hold due to abdominal discomfort Plan is for inpatient versus subacute rehabilitation Titrate down the FiO2 as tolerated We will continue to follow I have personally seen and examined the patient, performed the documentation and the assessment and plan as written. Number of minutes spent on the visit: 10.
[2022-12-28] MEDS: EZETIMIBE 10 MG TAB PO SCH (14:35)
[2022-12-28] MEDS: LINAGLIPTIN 5 MG TABLET PO SCH (14:35)
[2022-12-28] MEDS: ASPIRIN 81 MG PO SCH (14:35)
[2022-12-28] MEDS: ESCITALOPRAM 10 MG TAB PO SCH (14:35)
[2022-12-28] MEDS: DAPAGLIFLOZIN PROPANEDIOL 5 MG TABLET PO SCH (14:35)
[2022-12-28] MEDS: METOPROLOL TARTRATE 50 MG TAB PO SCH ×2 (14:36→21:20)
[2022-12-28] MEDS: TICAGRELOR 90 MG TAB PO SCH ×2 (14:36→21:22)
--- NOTE | 2022-12-28 15:37 | FL ---
EXAMINATION TYPE: FL barium swallow w video DATE OF EXAM: 12/28/2022 CLINICAL HISTORY: 67-year-old male with history of brainstem stroke and absent swallow a week. Assess for any improvement. TECHNIQUE: Deglutition study is performed utilizing thin liquid barium, honey and nectar thick liqui d barium, barium thick applesauce, crushed solids, and barium coated cracker. COMPARISON: None. Total fluoroscopy time: 2 minutes 58 seconds. Total images: None. Real-time fluoroscopy support was provided to speech pathology. DOSE AREA PRODUCT (DAP) UGY*M,MGY*CM: 249.03 FINDINGS: The patient is edentulous. There is delayed AP bolus transit. Thin liquids show prominent deep penetr ation to the vocal cords. [place] liquids showed deep penetration with eventual aspiration. No penetra tion or aspiration with honey thickened liquid. Some premature spill into the piriform sinuses is not ed. Puree and crush consistencies showed no penetration or aspiration but progressive vallecular residual . The patient had difficulty with solids as he was edentulous IMPRESSION: Deep penetration to the vocal cords with thin liquid. Deep penetration with eventual aspiration with nectar liquid. No penetration or aspiration with honey, puree, or crushed consistency. Please refer to speech therapist notes for further details if necessary.
--- NOTE | 2022-12-28 16:21 | CT ---
EXAMINATION TYPE: CT abdomen pelvis wo con DATE OF EXAM: 12/28/2022 COMPARISON: None HISTORY: r/o peg tube leak CT DLP: 834.6 mGycm Examination of the solid and hollow viscera is limited given the lack of contrast. FINDINGS: LUNG BASES: No evidence for nodule. No evidence for infiltrate. LIVER/GB: The gallbladder is unremarkable. No space-occupying hepatic lesion. PANCREAS: No pancreatic mass identified. No inflammatory process seen. SPLEEN: No evidence for splenomegaly. No intrasplenic lesions seen. ADRENALS: No adrenal nodules identified. No evidence for thickening. KIDNEYS: No evidence for renal mass. No nephrolithiasis. No hydronephrosis. [place] catheter decompress es the urinary bladder. BOWEL: PEG tube is noted to be in place without CT evidence to suggest leak. Contrast is seen within the stomach and small bowel. Appendix has a normal appearance. No evidence of bowel obstruction. No i nflammatory process. Sigmoid diverticulosis without diverticulitis. Lymph nodes: No evidence for adenopathy greater than 1 cm. Abdominal aorta: Atheromatous changes seen. Infrarenal abdominal aortic aneurysm measuring 3.2 cm AP dimension. Genital organs: No significant abnormality. Other: Fat-containing anterior abdominal wall hernia within the infraumbilical region measuring 8.4 x 5.1 cm. IMPRESSION: 1. PEG tube is in place without evidence for leak. 2. Fat-containing anterior abdominal wall hernia as noted above. 3. Infrarenal abdominal aortic aneurysm.
[2022-12-28 16:24] LABS: Glucose,Whole Blood 107 mg/dL (70-110)
--- NOTE | 2022-12-28 18:11 | P.PN ---
Subjective Progress Note Date: 12/28/22 HISTORY OF PRESENT ILLNESS This is a 67-year-old male with past medical history of diabetes mellitus type 2, hypertension, hyperlipidemia, history of GA in 2010 status post stent of the circumflex, known to have triple-vessel coronary artery disease with totally occluded collateralized right coronary artery, status post coronary artery bypass grafting using the left internal mammary artery to the left anterior descending artery, left radial artery from the aorta to the obtuse marginal artery, reverse saphenous vein graft from the aorta to the posterior descending artery, overall preserved left ventricular function, mild aortic stenosis, mild COPD with preoperative FEV1 63% of predicted, obesity, umbilical and epigastric hernia. Patient presented to the hospital due to increasing weakness and sl urred speech with history of a stroke a month ago that affected his speech and the left side of his body and was discharged on 11/08. During the hospitalization, Echocardiogram revealed EF of 55-60%, mild LVH, moderate mitral annular calcification, trace mitral regurgitation, moderate aortic stenosis, mild tricuspid regurgitation. Patient underwent MARISELA with Dr. Mckeon which revealed no cardiac source for CVA. Mild mitral and tricuspid regurgitation. Moderate aortic stenosis with mean gradient of 23 mmHg. Patient was evaluated by therapies with recommendations for home. Cardiology planned for outpatient stress testing with Dr. Mckeon and patient was to follow-up with vascular surgery regarding bilateral carotid stenosis. Patient really has had completely cover of his left-sided weakness and slurred speech. Family noticed that patient was having some difficulty with balance and walking and he started complaining of a headache and pressure behind his eye and not feeling well in general. He also was noted have incontinence and did not realize he was incontinent. Then he developed significant weakness on the left side and slurred speech and difficulty swallowing and presented to [facility] for further evaluation. Patient presents to the hospital with increased weakness and slurred speech that had progressed over the last 48 hours along with difficulty ambulating. Initial blood pressure was 109/89. WBC 11.6, hemoglobin 16.4, platelet count 218. Electrolytes are normal, creatinine 0.68. Blood sugar 192. Troponin negative. EKG sinus rhythm with no acute ST changes. CAT scan of the brain revealed no acute findings. Consult in place with vascular surgery with plans for carotid endarterectomy during this hospitalization, consult with cardiology for surgical clearance. 12/17: Patient is seen today on the cardiac stepdown unit. Patient has been seen by cardiology and cleared for carotid endarterectomy knowing that he is at intermediate risk for perioperative complications. Patient was seen by speech therapy and recommended nothing by mouth patient unable to pass a bedside swallow evaluation by speech. Patient is not safe to undergo modified barium swallow at this time. We will plan to place NG tube for patient to get his medications. Patient is also been seen by PT OT. He continues to have difficulty weakness on the left side along with expressive aphasia. Patient has been afebrile, heart rate 91, blood pressure 148/70, pulse ox 90% on room air. Blood sugars are running between 139-180. Neurology has discontinued Plavix is thought to have failed treatment and started Brilinta along with aspirin 81 mg daily, Lipitor 81 mg daily plan for permissive hypertension for the next 24 hours. Carotid ultrasound revealed less than 50% stenosis of the right carotid bifurcation, 50-69% stenosis on the left. 12/18: Patient did have an NG tube placement yesterday because the patient is not able to swallow anything at this point in time, due to his acute ischemic stroke in the right brainstem unless to the left breast and, with an old right occipital stroke, patient will be maintained on Brilinta 90 mg orally twice every day. Aspirin 81 mg once every day, and maximum dose of statin, neurology as well as vascular surgeon is following, patient will require intervention of his significant carotid artery stenosis, patient also is very noncompliant with medications treatment and follow-ups, we will continue to monitor the patient very closely, his daughters were at the bedside and updated about his current condition his prognosis overall is very guarded. 12/19: Patient was moved into the intensive care unit for better monitoring due to his bilateral brainstem stroke right more than left and prior history of right occipital infarct, currently on Brilinta 90 mg twice every day, baby aspirin 81 mg once every day, atorvastatin 80 mg once every day, Zetia 10 mg every day, neurology swallowing, continue tube feeding, continue NG tube, aspiration precautions, discussed with his daughter and his ode status and they decided on NO CODE for now and they will discuss with vascular the options of surgical intervention and the risks vs benefits at this stage of his illness 12/20: Patient is about the same is laying down in bed he appears to be weaker today, he continues to have some coughing, he is not able to handle his secretions, currently has an NG tube in place, he is doing his own suctioning of his oral secretions, he has bee on tube feeding, we will continue to monitor the patient very closely, according to the family the patient is very depressed we will start the patient on Lexapro 5 mg per NG tube once every day. 12/21: Patient is sitting up in bed is about the same, he denies any chest pain, he continues to be aphasic, he continues to have significant issues with handling his secretions, patient was started yesterday on Lexapro 5 mg per NG tube for his depression, the plan is to continue current treatment plan, the family will decide on the vascular surgery I believe he is on standby for carotid endarterectomy on 12/22: Patient is about the same he is not doing better, he continues to have an NG tube in place, this is not a long-term solution at this time, patient will require to have a PEG tube placement for long-term tube feeding, and medication use. Patient is supposed to go for a carotid endarterectomy tomorrow morning, patient has been followed by multiple specialties prognosis very guarded patient is no code at this time he will require long-term care facility post discharge from the hospital. 12/23: Patient is status post right carotid endarterectomy as well as PEG tube placement is laying down in bed in no apparent distress, he denies any chest pain, shortness breath, he continues to be somewhat aphasic, patient appears to be a bit better today than yesterday, the plan is to transition the patient to extended care facility for physical therapy rehabilitation, he continues to be weaker on the left side, more movement in the left lower extremity than the left upper extremity. 12/27: patient is laying down in bed in no apparent distress, he continues to have minimal coughing, he continues to have a significant dysphagia, currently had a PEG tube in place, and underwent right carotid endarterectomy, the plan is to transfer the patient to extended care facility hopefully the next 1 or 2 days for physical therapy and rehabilitation. Patient continues to be somewhat depressed, we will increase Lexapro to 10 mg per PEG tube once every day. 12/28: patient is laying down in bed in no apparent distress, he was seen earlier by speech therapy who did his swallow evaluation again and the patient surprisingly did very well with soft and chopped less with nectar thick liquid we'll continue to work with the patient this point in time, continue the tube feeding, try to introduce appropriate diet for the patient, and supplement with protein drinks and between through the PEG tube, for a goal of the patient to get back on his eating habits, he would be supervision to avoid aspiration. We'll continue to work with physical therapy and rehabilitation for possible inpatient rehabilitation versus extended care facility rehabilitation. REVIEW OF SYSTEMS Constitutional: No fever, no chills, no night sweats. No weight change. Reports left weakness. No daytime sleepiness. HEENT: Reports no headache. No blurred vision or double vision, no loss of vision. No loss of Hearing, no ringing in the ears, no dizziness. No nasal drainage or congestion. No epistaxis. No sore throat. Lungs: No shortness of breath, cough, no sputum production. No wheezing. Cardiovascular: No chest pain, no lower extremity edema. No palpitations. No paroxysmal nocturnal dyspnea. No orthopnea. No lightheadedness or dizziness. No syncopal episodes. Abdominal: No abdominal pain. No nausea, vomiting. No diarrhea. No constipation. No bloody or tarry stools. No loss of appetite. Genitourinary: No dysuria, increased frequency, urgency. No urinary retention. Musculoskeletal: No myalgias. Noted muscle weakness left side, noted gait dysfunction, no frequent falls. Chronic back pain, Integumentary: No wounds, no lesions. No rash or pruritus. No unusual bruis ing. No change in hair or nails. Neurologic: Reports slurred speech and weakness. Noted facial droop. Noted change in mentation. No head injury. Psychiatric: positive for depression. No anxiety. No mood swings. Endocrine: No abnormal blood sugars. No weight change. No excessive sweating or thirst. No cold intolerance. PHYSICAL EXAMINATION Gen: This is a 63-year-old male. He is sitting up in bed and appears to be comfortable and in no acute distress. Family members at bedside. HEENT: Head is atraumatic, normocephalic. Pupils equal, round. Sclerae is anicteric. Cortisone place to the right internal jugular. NECK: Supple. No JVD. No lymphadenopathy. No thyromegaly. LUNGS: Diminished bilaterally but otherwise clear to auscultation. No wheezes or rhonchi. No intercostal retractions. HEART: Regular rate and rhythm. 2/6 systolic ejection murmur. ABDOMEN: Soft. Bowel sounds are present. No masses. No tenderness. Acosta catheter draining clear lois urine. EXTREMITIES: No pedal edema. No calf tenderness. NEUROLOGICAL: Patient is awake, alert, weakness on the left, aphasia. ASSESSMENT AND PLAN: 1. Post operative day #5 status post right carotid endarterectomy And PEG tube placement. patient did pass some of the swallowing today with a therapist, we will continue with the current diet, use supplement and protein as needed. 2. Acute ischemic CVA in the right brain stem and to a lesser degree in the left brain stem. we will continue with ASA 81 mg , Brilinta 90 mg bid and Atorvastatin 80 mg , Zetia 10 mg. 3. Acute ischemic stroke with left hemiparesis . Continue current treatment plan. 4. Bilateral internal carotid artery stenosis. Post carotid endarterectomy. 5. Dysphagia Due to brainstem stroke status post PEG tube placement 6. Coronary artery disease status post 3 vessel CABG details above as well as previous stenting of circumflex. Continue patient on aspirin, Lipitor and zetia 7. Hypertension and hypertensive cardiovascular disease. Continue Lopressor 50 mg twice daily, we will continue to monitor BP very closely. 8. Hyperlipidemia. Continue Lipitor 80 mg daily, Zetia 10 mg daily. 9. Mild COPD, stable without exacerbation 10. Diabetes mellitus type 2. Continue patient on Levemir 15 units daily, F arxiga 5 mg daily, Tradjenta 5 mg daily, NovoLog insulin scale before meals and at bedtime. 11. Moderate aortic stenosis. Cardiology is following 12. GI prophylaxis. Protonix 40 mg daily. 13. DVT prophylaxis. Heparin 5000 units SC q12 hours. 14. Prognosis is very guarded. 15. NO CODE status discussed with patient's and his daughter at the bedside 16. Depression. increase Lexapro to 10 mg daily. 17. Overall prognosis is very guarded. 18. we'll try for inpatient rehabitation at [facility] and if that doesn't go through patient will need to go subacute rehabilitation. Objective - Vital Signs Vital signs: Vital Signs Temp 98.2 F 12/28/22 13:34 Pulse 82 12/28/22 13:34 Resp 18 12/28/22 13:34 BP 116/42 12/28/22 13:34 Pulse Ox 99 12/28/22 13:34 FiO2 50 12/24/22 08:00 Intake & Output 12/27/22 12/28/22 12/28/22 18:59 06:59 18:59 Intake Total 900 1740 Output Total 1900 1300 925 Balance -1000 440 -925 Weight 80 kg 80 kg Intake: IV 900 900 Sodium Chloride 0.9% 1, 900 900 000 ml @ 75 mls/hr IV . [id number] [facility] Rx#:[id number] Tube Feeding 720 Other 120 Output: Urine 1900 1300 925 Other: Voiding Method Indwelling Catheter Indwelling Catheter Indwelling Catheter # Bowel Movements 1 ABP, PAP, CO, CI - Last Documented Arterial Blood Pressure 142/50 - Labs CBC & Chem 7: 12/28/22 07:00 12/28/22 07:00 Labs: Abnormal Lab Results - Last 24 Hours (Table) 12/27/22 12/28/22 12/28/22 Range/Units 21:21 06:01 07:00 WBC 12.7 H (3.8-10.6) k/uL RBC 4.15 L (4.30-5.90) m/uL Neutrophils # 9.9 H (1.3-7.7) k/uL Sodium (137-145) mmol/L Creatinine (0.66-1.25) mg/dL Glucose (74-99) mg/dL POC Glucose (mg/dL) 135 H 162 H (70-110) mg/dL Calcium (8.4-10.2) mg/dL Total Protein (6.3-8.2) g/dL Albumin (3.5-5.0) g/dL 12/28/22 12/28/22 Range/Units 07:00 11:16 WBC (3.8-10.6) k/uL RBC (4.30-5.90) m/uL Neutrophils # (1.3-7.7) k/uL Sodium 135 L (137-145) mmol/L Creatinine 0.55 L (0.66-1.25) mg/dL Glucose 140 H (74-99) mg/dL POC Glucose (mg/dL) 127 H (70-110) mg/dL Calcium 7.9 L (8.4-10.2) mg/dL Total Protein 5.5 L (6.3-8.2) g/dL Albumin 2.7 L (3.5-5.0) g/dL
[2022-12-28] MEDS: ACETAMINOPHEN TAB 325 MG TAB PO PRN (18:25)
[2022-12-28 21:18] LABS: Glucose,Whole Blood 132 mg/dL (70-110)
[2022-12-28] MEDS: INSULIN DETEMIR (LEVEMIR) 100 UNIT/ML SYR SQ SCH (21:20)
[2022-12-28] MEDS: ATORVASTATIN 80 MG TAB PO SCH (21:22)
[2022-12-29 00:13] LABS: Glucose,Whole Blood 136 mg/dL (70-110)
[2022-12-29] MEDS: PHENYLEPHRINE 40 MG in SODIUM CHLORIDE 0.9% 250 ML IV SCH ×2 (00:45→14:47)
[2022-12-29] MEDS: INSULIN ASPART (NovoLOG) 100 UNIT/ML VIAL SQ SCH ×4 (00:46→18:10)
[2022-12-29] MEDS: ACETAMINOPHEN TAB 325 MG TAB PO PRN ×2 (03:34→09:35)
[2022-12-29 06:08] LABS: Glucose,Whole Blood 161 mg/dL (70-110)
[2022-12-29] MEDS: Icosapent Ethyl [Icosapent Ethyl] 1 GM Capsule PO SCH ×2 (06:22→14:47)
[2022-12-29] MEDS: traMADol 50 MG TAB PO PRN ×3 (06:27→20:01)
[2022-12-29] MEDS: SODIUM CHLORIDE 0.9% 1,000 ML IV SCH ×2 (06:31→22:44)
[2022-12-29] MEDS: TICAGRELOR 90 MG TAB PO SCH ×2 (09:27→20:03)
[2022-12-29] MEDS: ASPIRIN 81 MG PO SCH (09:27)
[2022-12-29] MEDS: EZETIMIBE 10 MG TAB PO SCH (09:27)
[2022-12-29] MEDS: DAPAGLIFLOZIN PROPANEDIOL 5 MG TABLET PO SCH (09:27)
[2022-12-29] MEDS: METOPROLOL TARTRATE 50 MG TAB PO SCH ×2 (09:27→20:01)
[2022-12-29] MEDS: HEPARIN SODIUM,PORCINE/PF 5,000 UNIT/0.5 ML SYRINGE SQ SCH ×2 (09:28→20:01)
[2022-12-29] MEDS: ESCITALOPRAM 10 MG TAB PO SCH (09:28)
[2022-12-29] MEDS: LINAGLIPTIN 5 MG TABLET PO SCH (09:28)
[2022-12-29 11:32] LABS: Glucose,Whole Blood 276 mg/dL (70-110)
--- NOTE | 2022-12-29 15:17 | P.PN ---
Subjective Progress Note Date: 12/29/22 This is a 67-year-old male gentleman seen today in consultation in the intensive care unit. He has a history of chronic and ongoing tobacco dependence, hyperlipidemia, hypertension, diabetes mellitus, type II, coronary disease with previous coronary bypass grafting and stent placement. Recent admission in October 2022 for an acute ischemic stroke with left hemiparesis. MARISELA revealed no cardiac source for CVA. CT angiogram revealed a right internal carotid artery stenosis of 80-85% and a left internal carotid artery stenosis of 85%. He was to follow with vascular surgery in the outpatient setting. Unfortunately he presented back here to the hospital on 12/16/2022 with a one-day history of increasing weakness slurred speech and left-sided weakness. MRI of the brain revealed acute ischemic changes interval finding within the right brainstem and to a lesser degree left brain stem. Residual signal abnormality in the right occipital lobe considered to be the old ischemic change. Angiography revealed calcified and noncalcified plaque at the carotid bifurcations with at least 70% stenosis on the right and 90% stenosis on the left. No evidence of dissection. No evidence of intracranial high-grade stenosis or intracranial aneurysm. He was transferred to the intensive care unit for closer monitoring throughout the night. He is seen today in consultation in the ICU. He is currently sitting up in bed. He is quite aphasic. Congested. Nasogastric tube is in place. He is being nourished with Glucerna at 60 ML's per hour. He has 0.9 normal saline at 75 ML's per hour. He is currently maintaining good O2 saturations in the 90s on room air. Aspiration precautions. His left side is still quite weak able to raise his left arm but his hand is weak. Not able to raise his left leg. White count 9.3. He was 16.9. Platelets 199. Sodium 136. Potassium 3.7. Bicarb 15. BUN 11. Creatinine 0.57. Glucose 112. He is continued on aspirin and Brilinta. Heparin for DVT prophylaxis. The patient is seen today 12/20/2022 in follow-up in the intensive care unit. He is currently sitting up in bed. Awake, alert. Maintaining O2 saturations in the 90s on 3 L/m per nasal cannula. He's been afebrile. Hemodynamically stable. Chest x-ray reveals patchy left basilar atelectasis. White count 10.3. Hemoglobin 16.5. Platelets 189. Sodium 136. Potassium 4.0. Bicarb 15. BUN 14. Creatinine 0.62. Glucose 144. Remains a phasic. Remains with left-sided weakness. Nasogastric tube in place receiving Glucerna 1.2 at a rate of 60 ML's per hour. Receiving free water flushes. The patient is seen today 12/27/2022 in follow-up on the regular medical floor. He is currently resting fairly comfortable in bed. Awake and alert. He remains with significant left-sided weakness. The left-sided facial droop. He did undergo right carotid endarterectomy on 12/23/2022. Maintaining O2 saturation in the 90s on 2 L/m per nasal cannula. Afebrile. Hemodynamically stable. He did undergo PEG tube insertion. He continues to be nourished with Glucerna at 60 ML's per hour. White count 11.1. Hemoglobin 13.5. Platelets 234. Sodium 137. Potassium 3.7. Bicarb 27. BUN 13. Creatinine 0.57. Glucose 135. He is maintained on aspirin and Brilinta. Heparin for DVT prophylaxis. The patient is seen today 12/28/2022 in follow-up on the regular medical floor. He is awake and alert in no acute distress. Not much improvement today compared to yesterday. Continues with left-sided weakness. Facial droop. White count 12.7. Hemodynamically 13.1. Sodium 135. Potassium 3.9. Bicarb 27. BUN 14. Creatinine 0.55. Glucose 140. Plan is for barium swallow today. The patient has been having some discomfort at the PEG tube site. Tube feedings on hold. Plan is for computed tomography scan of the abdomen and pelvis without contrast today. He remains on Brilinta, aspirin and statins. Heparin for DVT prophylaxis. The patient is seen today 12/29/2022 in follow-up on the regular medical floor. He is currently sitting up in bed. Awake and alert. Continues with left-sided weakness. Left-sided facial droop. He is responding appropriately. He is maintaining good O2 saturation the mid 90s on 2 L/m per nasal cannula. He is afebrile. Hemodynamically stable. Computed tomography scan of the abdomen and pelvis revealed a PEG tube in place without evidence of leak. There is a fat- containing anterior abdominal wall hernia. Infrarenal abdominal aortic aneurysm measuring 3.2 cm. Glucose 136. Continued on normal saline at 75, this per hour. Heparin for DVT prophylaxis. Remains on aspirin, statins and Brilinta. Objective - Vital Signs Vital signs: Vital Signs Temp 97.5 F L 12/29/22 07:15 Pulse 79 12/29/22 07:15 Resp 21 12/29/22 07:15 BP 121/66 12/29/22 07:15 Pulse Ox 96 12/29/22 07:15 FiO2 50 12/24/22 08:00 Intake & Output 12/28/22 12/29/22 12/29/22 18:59 06:59 18:59 Intake Total 807.5 Output Total 925 850 Balance -925 -42.5 Weight 80 kg 78 kg Intake: IV 787.5 Sodium Chloride 0.9% 1, 787.5 000 ml @ 75 mls/hr IV . [id number] [facility] Rx#:[id number] Oral 20 Output: Urine 925 850 Other: Voiding Method Indwelling Catheter Indwelling Catheter Indwelling Catheter # Bowel Movements 1 ABP, PAP, CO, CI - Last Documented Arterial Blood Pressure 142/50 - Exam GENERAL EXAM: Alert, aphasic 67-year-old male, sitting up in bed, on 2 L nasal cannula, fairly comfortable in no apparent distress. HEAD: Normocephalic. Left sided facial droop. EYES: Normal reaction of pupils, equal size. NOSE: Nasogastric tube secured in place. Clear with pink turbinates. THROAT: No erythema or exudates. NECK: No masses, no JVD. CHEST: No chest wall deformity. LUNGS: Equal air entry with bilateral scattered rhonchi. CVS: S1 and S2 normal with no audible murmur, regular rhythm. ABDOMEN: Some discomfort at PEG tube site. PEG tube exit site clean and dry. No hepatosplenomegaly, normal bowel sounds, no guarding or rigidity. SPINE: No scoliosis or deformity SKIN: No rashes CENTRAL NERVOUS SYSTEM: Aphasic, tone is normal in all 4 extremities. EXTREMITIES: Left upper and lower extremity weakness. There is no peripheral edema. Peripheral pulses are intact. - Labs CBC & Chem 7: 12/28/22 07:00 12/28/22 07:00 Labs: Abnormal Lab Results - Last 24 Hours (Table) 12/28/22 12/29/22 12/29/22 Range/Units 21:16 00:11 06:06 POC Glucose (mg/dL) 132 H 136 H 161 H (70-110) mg/dL 12/29/22 Range/Units 11:31 POC Glucose (mg/dL) 276 H (70-110) mg/dL Assessment and Plan Assessment: Acute ischemic stroke involving the bilateral brainstem over pontine region right greater than left and a small focus over the right temporal region. Suspect embolic in nature. Failed Plavix. Currently on Brilinta, atorvastatin and aspirin Recent stroke in October 2022 in the right occipital region with left-sided weakness, slurred speech and facial droop, mainly resolved Bilateral carotid stenosis and calcified plaque at the carotid bifurcations with at least 70% stenosis on the right and 90% stenosis on the left. Status post right carotid endarterectomy on 12/23/2022 Aphasia secondary to above status post PEG tube placement on 12/23/2022. Having pain at PEG tube site today 12/28/2022. Computed tomography scan of the abdomen pending History of coronary artery disease with previous stent placement and coronary artery bypass grafting Hypertension Hyperlipidemia Diabetes mellitus Chronic and ongoing tobacco dependence Hearing disorder Plan: The patient was seen and evaluated Medications and labs reviewed Continued on statins, Brilinta, aspirin Computed tomography scan of the abdomen revealed intact PEG tube Plan is for inpatient versus subacute rehabilitation Titrate down the FiO2 as tolerated We will continue to follow I have personally seen and examined the patient, performed the documentation and the assessment and plan as written. Number of minutes spent on the visit: 10.
--- NOTE | 2022-12-29 16:36 | P.PN ---
Subjective Progress Note Date: 12/29/22 HISTORY OF PRESENT ILLNESS This is a 67-year-old male with past medical history of diabetes mellitus type 2, hypertension, hyperlipidemia, history of [place] in 2010 status post stent of the circumflex, known to have triple-vessel coronary artery disease with totally occluded collateralized right coronary artery, status post coronary artery bypass grafting using the left internal mammary artery to the left anterior descending artery, left radial artery from the aorta to the obtuse marginal artery, reverse saphenous vein graft from the aorta to the posterior descending artery, overall preserved left ventricular function, mild aortic stenosis, mild COPD with preoperative FEV1 63% of predicted, obesity, umbilical and epigastric hernia. Patient presented to the hospital due to increasing weakness and sl urred speech with history of a stroke a month ago that affected his speech and the left side of his body and was discharged on 11/08. During the hospitalization, Echocardiogram revealed EF of 55-60%, mild LVH, moderate mitral annular calcification, trace mitral regurgitation, moderate aortic stenosis, mild tricuspid regurgitation. Patient underwent MARISELA with Dr. Mckeon which revealed no cardiac source for CVA. Mild mitral and tricuspid regurgitation. Moderate aortic stenosis with mean gradient of 23 mmHg. Patient was evaluated by therapies with recommendations for home. Cardiology planned for outpatient stress testing with Dr. Mckeon and patient was to follow-up with vascular surgery regarding bilateral carotid stenosis. Patient really has had completely cover of his left-sided weakness and slurred speech. Family noticed that patient was having some difficulty with balance and walking and he started complaining of a headache and pressure behind his eye and not feeling well in general. He also was noted have incontinence and did not realize he was incontinent. Then he developed significant weakness on the left side and slurred speech and difficulty swallowing and presented to [facility] for further evaluation. Patient presents to the hospital with increased weakness and slurred speech that had progressed over the last 48 hours along with difficulty ambulating. Initial blood pressure was 109/89. WBC 11.6, hemoglobin 16.4, platelet count 218. Electrolytes are normal, creatinine 0.68. Blood sugar 192. Troponin negative. EKG sinus rhythm with no acute ST changes. CAT scan of the brain revealed no acute findings. Consult in place with vascular surgery with plans for carotid endarterectomy during this hospitalization, consult with cardiology for surgical clearance. 12/17: Patient is seen today on the cardiac stepdown unit. Patient has been seen by cardiology and cleared for carotid endarterectomy knowing that he is at intermediate risk for perioperative complications. Patient was seen by speech therapy and recommended nothing by mouth patient unable to pass a bedside swallow evaluation by speech. Patient is not safe to undergo modified barium swallow at this time. We will plan to place NG tube for patient to get his medications. Patient is also been seen by PT OT. He continues to have difficulty weakness on the left side along with expressive aphasia. Patient has been afebrile, heart rate 91, blood pressure 148/70, pulse ox 90% on room air. Blood sugars are running between 139-180. Neurology has discontinued Plavix is thought to have failed treatment and started Brilinta along with aspirin 81 mg daily, Lipitor 81 mg daily plan for permissive hypertension for the next 24 hours. Carotid ultrasound revealed less than 50% stenosis of the right carotid bifurcation, 50-69% stenosis on the left. 12/18: Patient did have an NG tube placement yesterday because the patient is not able to swallow anything at this point in time, due to his acute ischemic stroke in the right brainstem unless to the left breast and, with an old right occipital stroke, patient will be maintained on Brilinta 90 mg orally twice every day. Aspirin 81 mg once every day, and maximum dose of statin, neurology as well as vascular surgeon is following, patient will require intervention of his significant carotid artery stenosis, patient also is very noncompliant with medications treatment and follow-ups, we will continue to monitor the patient very closely, his daughters were at the bedside and updated about his current condition his prognosis overall is very guarded. 12/19: Patient was moved into the intensive care unit for better monitoring due to his bilateral brainstem stroke right more than left and prior history of right occipital infarct, currently on Brilinta 90 mg twice every day, baby aspirin 81 mg once every day, atorvastatin 80 mg once every day, Zetia 10 mg every day, neurology swallowing, continue tube feeding, continue NG tube, aspiration precautions, discussed with his daughter and his ode status and they decided on NO CODE for now and they will discuss with vascular the options of surgical intervention and the risks vs benefits at this stage of his illness 12/20: Patient is about the same is laying down in bed he appears to be weaker today, he continues to have some coughing, he is not able to handle his secretions, currently has an NG tube in place, he is doing his own suctioning of his oral secretions, he has bee on tube feeding, we will continue to monitor the patient very closely, according to the family the patient is very depressed we will start the patient on Lexapro 5 mg per NG tube once every day. 12/21: Patient is sitting up in bed is about the same, he denies any chest pain, he continues to be aphasic, he continues to have significant issues with handling his secretions, patient was started yesterday on Lexapro 5 mg per NG tube for his depression, the plan is to continue current treatment plan, the family will decide on the vascular surgery I believe he is on standby for carotid endarterectomy on 12/22: Patient is about the same he is not doing better, he continues to have an NG tube in place, this is not a long-term solution at this time, patient will require to have a PEG tube placement for long-term tube feeding, and medication use. Patient is supposed to go for a carotid endarterectomy tomorrow morning, patient has been followed by multiple specialties prognosis very guarded patient is no code at this time he will require long-term care facility post discharge from the hospital. 12/23: Patient is status post right carotid endarterectomy as well as PEG tube placement is laying down in bed in no apparent distress, he denies any chest pain, shortness breath, he continues to be somewhat aphasic, patient appears to be a bit better today than yesterday, the plan is to transition the patient to extended care facility for physical therapy rehabilitation, he continues to be weaker on the left side, more movement in the left lower extremity than the left upper extremity. 12/27: patient is laying down in bed in no apparent distress, he continues to have minimal coughing, he continues to have a significant dysphagia, currently had a PEG tube in place, and underwent right carotid endarterectomy, the plan is to transfer the patient to extended care facility hopefully the next 1 or 2 days for physical therapy and rehabilitation. Patient continues to be somewhat depressed, we will increase Lexapro to 10 mg per PEG tube once every day. 12/28: patient is laying down in bed in no apparent distress, he was seen earlier by speech therapy who did his swallow evaluation again and the patient surprisingly did very well with soft and chopped less with nectar thick liquid we'll continue to work with the patient this point in time, continue the tube feeding, try to introduce appropriate diet for the patient, and supplement with protein drinks and between through the PEG tube, for a goal of the patient to get back on his eating habits, he would be supervision to avoid aspiration. We'll continue to work with physical therapy and rehabilitation for possible inpatient rehabilitation versus extended care facility rehabilitation. 12/29: No new concerns from the patient today. We are still waiting for insurance authorization for inpatient rehab. Patient has been afebrile and hemodynamically stable. He is using a PEG tube for nutrition and continues to be followed by speech therapy. Patient underwent trial of honey second. Consistencies and recommend liquids via spoon. Patient tolerated. Consistencies without signs of aspiration. Patient is also followed by PT and OT with anticipation of rehab once insurance authorization is obtained. He r emains afebrile, heart rate in the 70s, blood pressure 121/66 and pulse ox 96% on 3 L nasal cannula. Capillary blood glucose running between 132 and 276. He underwent a CAT scan of abdomen and pelvis without contrast yesterday which revealed PEG tube is in place without evidence of leak. Fat-containing anterior abdomen wall hernia noted. Infrarenal abdominal aortic aneurysm. Anticipate probable discharge tomorrow. REVIEW OF SYSTEMS Constitutional: No fever, no chills, no night sweats. No weight change. Reports left weakness. No daytime sleepiness. HEENT: Reports no headache. No blurred vision or double vision, no loss of vision. No loss of Hearing, no ringing in the ears, no dizziness. No nasal drainage or congestion. No epistaxis. No sore throat. Lungs: No shortness of breath, cough, no sputum production. No wheezing. Cardiovascular: No chest pain, no lower extremity edema. No palpitations. No paroxysmal nocturnal dyspnea. No orthopnea. No lightheadedness or dizziness. No syncopal episodes. Abdominal: No abdominal pain. No nausea, vomiting. No diarrhea. No co nstipation. No bloody or tarry stools. No loss of appetite. Genitourinary: No dysuria, increased frequency, urgency. No urinary retention. Musculoskeletal: No myalgias. Noted muscle weakness left side, noted gait dysfunction, no frequent falls. Chronic back pain, Integumentary: No wounds, no lesions. No rash or pruritus. No unusual bruising. No change in hair or nails. Neurologic: Reports slurred speech and weakness. Noted facial droop. Noted change in mentation. No head injury. Psychiatric: positive for depression. No anxiety. No mood swings. Endocrine: No abnormal blood sugars. No weight change. No excessive sweating or thirst. PHYSICAL EXAMINATION Gen: This is a 63-year-old male. He is sitting up in bed and appears to be comfortable and in no acute distress. Family members at bedside. HEENT: Head is atraumatic, normocephalic. Pupils equal, round. Sclerae is anicteric. Cortisone place to the right internal jugular. NECK: Supple. No JVD. No lymphadenopathy. No thyromegaly. LUNGS: Diminished bilaterally but otherwise clear to auscultation. No wheezes or rhonchi. No intercostal retractions. HEART: Regular rate and rhythm. 2/6 systolic ejection murmur. ABDOMEN: Soft. Bowel sounds are present. No masses. No tenderness. Acosta catheter draining clear lois urine. EXTREMITIES: No pedal edema. No calf tenderness. NEUROLOGICAL: Patient is awake, alert, weakness on the left, aphasia. ASSESSMENT AND PLAN: 1. Post operative day #6 status post right carotid endarterectomy And PEG tube placement. patient did pass some of the swallowing evaluation with a therapist, we will continue with the current diet, use supplement and protein as needed. 2. Acute ischemic CVA in the right brain stem and to a lesser degree in the left brain stem. we will continue with ASA 81 mg, Brilinta 90 mg bid and Atorvastatin 80 mg , Zetia 10 mg. 3. Acute ischemic stroke with left hemiparesis . Continue current treatment plan. 4. Bilateral internal carotid artery stenosis. Post carotid endarterectomy. 5. Dysphagia Due to brainstem stroke status post PEG tube placement 6. Coronary artery disease status post 3 vessel CABG details above as well as previous stenting of circumflex. Continue patient on aspirin, Lipitor and zetia 7. Hypertension and hypertensive cardiovascular disease. Continue Lopressor 50 mg twice daily, we will continue to monitor BP very closely. 8. Hyperlipidemia. Continue Lipitor 80 mg daily, Zetia 10 mg daily. 9. Mild COPD, stable without exacerbation 10. Diabetes mellitus type 2. Continue patient on Levemir 15 units daily, Farxiga 5 mg daily, Tradjenta 5 mg daily, NovoLog insulin scale before meals and at bedtime. 11. Moderate aortic stenosis. Cardiology is following 12. GI prophylaxis. Protonix 40 mg daily. 13. DVT prophylaxis. Heparin 5000 units SC q12 hours. 14. Prognosis is very guarded. 15. NO CODE status discussed with patient's and his daughter at the bedside 16. Depression. increase Lexapro to 10 mg daily. 17. Overall prognosis is very guarded. 18. we'll try for inpatient rehabitation at [facility] and if that doesn't go through patient will need to go subacute rehabilitation. Impression and plan of care have been directed as dictated by the signing physician. Rosalia Burns nurse practitioner acting as scribe for signing physician. Objective - Vital Signs Vital signs: Vital Signs Temp 97.5 F L 12/29/22 07:15 Pulse 79 12/29/22 07:15 Resp 21 12/29/22 07:15 BP 121/66 12/29/22 07:15 Pulse Ox 96 12/29/22 07:15 FiO2 50 12/24/22 08:00 Intake & Output 12/28/22 12/29/22 12/29/22 18:59 06:59 18:59 Intake Total 807.5 Output Total 925 850 Balance -925 -42.5 Weight 80 kg 78 kg Intake: IV 787.5 Sodium Chloride 0.9% 1, 787.5 000 ml @ 75 mls/hr IV . [id number] [facility] Rx#:[id number] Oral 20 Output: Urine 925 850 Other: Voiding Method Indwelling Catheter Indwelling Catheter Indwelling Catheter # Bowel Movements 1 ABP, PAP, CO, CI - Last Documented Arterial Blood Pressure 142/50 - Labs CBC & Chem 7: 12/28/22 07:00 12/28/22 07:00 Labs: Abnormal Lab Results - Last 24 Hours (Table) 12/28/22 12/29/22 12/29/22 Range/Units 21:16 00:11 06:06 POC Glucose (mg/dL) 132 H 136 H 161 H (70-110) mg/dL 12/29/22 Range/Units 11:31 POC Glucose (mg/dL) 276 H (70-110) mg/dL
--- NOTE | 2022-12-29 16:51 | P.PN ---
Subjective Progress Note Date: 12/29/22 CHIEF COMPLAINT: CVA HISTORY OF PRESENT ILLNESS: Patient status post PEG tube placement on 12/23/22. Patient reports improvement in abdominal pain. He is having flatus. No bowel movement today. Denies any nausea vomiting. Computed tomography scan completed yesterday shows PEG tube is in place without evidence for leak. Fat-containing anterior abdominal wall hernia is noted. Infrarenal and abdominal aortic aneurysm. Patient's tube feeds have been restarted. He is tolerating the tube feeds. There is no further tube feeding drainage noted from the PEG tube site. Afebrile PHYSICAL EXAM: VITAL SIGNS: Reviewed. GENERAL: no acute distress. ABDOMEN: Soft. Nondistended. Umbilical hernia reducible. PEG tube site clean dry and intact NEUROLOGIC: Awake and alert ASSESSMENT: 1. CVA 2. Dysphagia with mild protein calorie malnutrition status post PEG tube placement PLAN: -Continue tube feedings -Continue supportive care Physician Title Vehicle Service Attendant note has been reviewed by physician. Signing provider agrees with the documented findings, assessment, and plan of care. Objective - Vital Signs Vital signs: Vital Signs Temp 97.5 F L 12/29/22 07:15 Pulse 79 12/29/22 07:15 Resp 21 12/29/22 07:15 BP 121/66 12/29/22 07:15 Pulse Ox 96 12/29/22 07:15 FiO2 50 12/24/22 08:00 Intake & Output 12/28/22 12/29/22 12/29/22 18:59 06:59 18:59 Intake Total 807.5 Output Total 925 850 Balance -925 -42.5 Weight 80 kg 78 kg Intake: IV 787.5 Sodium Chloride 0.9% 1, 787.5 000 ml @ 75 mls/hr IV . [id number] COUNTS INCLUDE 234 BEDS AT [facility] Rx#:[id number] Oral 20 Output: Urine 925 850 Other: Voiding Method Indwelling Catheter Indwelling Catheter Indwelling Catheter # Bowel Movements 1 ABP, PAP, CO, CI - Last Documented Arterial Blood Pressure 142/50 - Labs CBC & Chem 7: 12/28/22 07:00 12/28/22 07:00 Labs: Abnormal Lab Results - Last 24 Hours (Table) 12/28/22 12/29/22 12/29/22 Range/Units 21:16 00:11 06:06 POC Glucose (mg/dL) 132 H 136 H 161 H (70-110) mg/dL 12/29/22 Range/Units 11:31 POC Glucose (mg/dL) 276 H (70-110) mg/dL
--- NOTE | 2022-12-29 18:00 | P.PN ---
Subjective Progress Note Date: 12/29/22 The patient is seen at bedside and feels about the same. Denies any worsening of his condition. He is pending to be discharge to rehab and pending insurance authorization. Objective - Vital Signs Vital signs: Vital Signs Temp 97.3 F L 12/29/22 15:18 Pulse 66 12/29/22 15:18 Resp 21 12/29/22 15:18 BP 122/66 12/29/22 15:18 Pulse Ox 98 12/29/22 15:18 FiO2 50 12/24/22 08:00 Intake & Output 12/28/22 12/29/22 12/29/22 18:59 06:59 18:59 Intake Total 807.5 Output Total 203 072 4740 Balance -925 -42.5 -1775 Weight 80 kg 78 kg Intake: IV 787.5 Sodium Chloride 0.9% 1, 787.5 000 ml @ 75 mls/hr IV . [id number] [facility] Rx#:[id number] Oral 20 Output: Urine 195 184 1240 Other: Voiding Method Indwelling Catheter Indwelling Catheter Indwelling Catheter # Bowel Movements 1 ABP, PAP, CO, CI - Last Documented Arterial Blood Pressure 142/50 - Exam GENERAL: The patient is lying in bed and is not in acute distress. NEUROLOGICAL: Awake, alert, oriented to self, place and time. Following simple commands. No aphasia. No neglect. Cranial nerves: The pupils are round, equal and reactive to light. Extraocular movement is intact no nystagmus is noted. Moderate left lower facial weakness. Has severe dysarthria is noted. . . Motor: The strength is left upper is 2-3 (but more 2) and is able to briefly lift above gravity, left hand finger 1-2. Left lower is wiggling toes otherwise no movement. Right side 5/5. Decrease tone over the left. Cerebellum: Had to assess finger to nose on left because of weakness but normal on the right. Sensation: Sensation is decreased on the left. Some other workup during this hospital visit consisted of: Hemoglobin A1c is 10.0 Lipid panel is TG 376, cholesterol 190, LDL 77 and HDL is 37. CT of the head is reported as no acute finding in the head/brain. Personally reviewed the CT of the head and there is no acute or subacute ischemia. Carotid duplex was reported as less than 50% stenosis on the right carotid bifurcation. 50-60% stenosis on the left carotid bifurcation. MRI Brain is reported as acute is ischemic changes, an interval finding within brainstem right > left. Residual right occipital lobe can be related to the old ischemic change. Chronic appearing deep white matter changes. I personally reviewed the MRI and I agree with the report and in addition I also felt the patient had a small focus over the right temporal lesion. Brainstem is involving the lateral pontine region . CT angiography of the head and neck was reported as calcified non-calcified plaque at the carotid bifurcation at least 70% stenosis on the right 90% s tenosis on the left. No evidence for dissection of the cervical internal carotid artery or vertebral artery. No evidence of intracranial high-grade stenosis or intracranial aneurysm. Mild pulmonary vascular congestion with cardiomegaly correlate for congestive heart failure. - Labs CBC & Chem 7: 12/28/22 07:00 12/28/22 07:00 Labs: Abnormal Lab Results - Last 24 Hours (Table) 12/28/22 12/29/22 12/29/22 Range/Units 21:16 00:11 06:06 POC Glucose (mg/dL) 132 H 136 H 161 H (70-110) mg/dL 12/29/22 Range/Units 11:31 POC Glucose (mg/dL) 276 H (70-110) mg/dL Assessment and Plan Assessment: This is a 67-year-old gentleman who presented that because of left-sided weakness and numbness with dysarthria. Patient stated that his symptoms began on 12/15/2022 in the afternoon for the ED was accompanied with his daughter and is seems his symptoms has been progressive for the last 48 hours prior to presenting to the hospital. Acute ischemic stroke (bilateral brainstem over pontine region and right > left) and felt small focus over the right temporal region. Etiology seems embolic in nature. Has severe bilateral carotid stenosis on most recent CTA in 11/14 and on 12/18/2022 in which has right ICA 70% while left is 90% stenosis. Rule out any cardioembolic. Dysphagia due to above Significant left hemiparesis due to above (lower > upper) Right ICA carotid endarterectomy on 12/23/22 Recent stroke in the second week of October 2022 in which she had the right occipital and was also felt likely due to symptomatic right ICA stenosis. At that time also patient had the left-sided weakness with facial droop and slurred speech and his symptoms resolved. Patient also had the MRI which also reported acute to subacute left hernandez radiata but was felt likely T2 shine through and not acute or subacute stroke. Vascular team ask for him to follow-u as outpatient. Significant bilateral carotid stenosis. There is discordinant between CTA and carotid on both time (in 11/14/ and on 12/18/22 which is worse on CTA and not significant on carotid duplex. Recent CTA reveals right ICA 70% while left is 90%). Dyslipidemia Diabetes mellitus Hypertension Hard of hearing History of coronary artery disease status post stent as well as CABG Tobacco use Plan: During this admission, I stopped Plavix since the patient failed the medication. I started the patient on Brilinta 90mg bid I decreased ASA from 325mg to 81mg daily. Continue Lipitor 80 mg daily at bedtime for secondary stroke prophylaxis. Patient had Right ICA carotid endarterectomy on 12/23/22. Regarding significant left ICA stenosis and it seem symptomatic, per vascular surgery team to be addressed as outpatient and not inpatient. Continue Neurochecks Cardiac monitoring PT, OT and FENDER REPAIRER are consulted Patient had a MARISELA performed 11/08/2022, which revealed no embolic source identified. Normal left ventricular size and systolic function. Normal appearance of the left atrial appendage. Mild mitral and tricuspid regurgitation. No shunting across the interatrial septum. No need to repeat MARISELA per Dr. Estrella. We'll defer the rest of the medical management to the primary team For DVT prophylaxis On subcu heparin 5000 units every 12 hours Upon discharge, recommend patient to follow-up with neurologist and vascular surgery team as outpatient. Condition is very guarded. Pending insurance authorization for discharge to rehab. The plan was discussed with the patient and his nurse. There is no further neurological work-up. Please notify neurology team if any further concerns. Dr. Estrella will start neurology service tomorrow. Time with Patient: Less than 30
[2022-12-29 18:02] LABS: Glucose,Whole Blood 113 mg/dL (70-110)
[2022-12-29] MEDS: ATORVASTATIN 80 MG TAB PO SCH (20:03)
[2022-12-29 21:22] VITALS: RESP 19
[2022-12-30 00:08] LABS: Glucose,Whole Blood 129 mg/dL (70-110)
[2022-12-30] MEDS: INSULIN DETEMIR (LEVEMIR) 100 UNIT/ML SYR SQ SCH (00:31)
[2022-12-30] MEDS: INSULIN ASPART (NovoLOG) 100 UNIT/ML VIAL SQ SCH ×3 (00:32→11:44)
[2022-12-30] MEDS: traMADol 50 MG TAB PO PRN ×2 (01:23→08:23)
[2022-12-30 05:58] LABS: Glucose,Whole Blood 153 mg/dL (70-110)
[2022-12-30] MEDS: SODIUM CHLORIDE 0.9% 1,000 ML IV SCH (05:59)
[2022-12-30] MEDS: Icosapent Ethyl [Icosapent Ethyl] 1 GM Capsule PO SCH (06:21)
[2022-12-30] MEDS: EZETIMIBE 10 MG TAB PO SCH (08:23)
[2022-12-30] MEDS: ASPIRIN 81 MG PO SCH (08:23)
[2022-12-30] MEDS: LINAGLIPTIN 5 MG TABLET PO SCH (08:23)
[2022-12-30] MEDS: HEPARIN SODIUM,PORCINE/PF 5,000 UNIT/0.5 ML SYRINGE SQ SCH (08:23)
[2022-12-30] MEDS: METOPROLOL TARTRATE 50 MG TAB PO SCH (08:24)
[2022-12-30] MEDS: ESCITALOPRAM 10 MG TAB PO SCH (08:25)
[2022-12-30] MEDS: TICAGRELOR 90 MG TAB PO SCH (08:25)
[2022-12-30] MEDS: DAPAGLIFLOZIN PROPANEDIOL 5 MG TABLET PO SCH (08:25)
--- NOTE | 2022-12-30 09:41 | P.DS ---
Providers Date of admission: 12/16/22 03:55 Expected date of discharge: 12/30/22 Attending physician: Rickie Reyes Consults: 12/16/22 03:55 Consult Physician Routine Consulting Provider: Jayce Coffey Consult Reason/Comments: CVA Do you want consulting provider notified?: Yes 12/16/22 13:50 Consult Physician Urgent Consulting Provider: Rama Acosta Consult Reason/Comments: right ica stenosis and recurrent left sided deficits Do you want consulting provider notified?: Yes 12/17/22 09:19 Consult Physician Routine Consulting Provider: Tevin Anne Consult Reason/Comments: evaluate for IPR Do you want consulting provider notified?: Yes 12/17/22 09:46 Consult Physician Urgent Consulting Provider: Cody Moyer Consult Reason/Comments: placement of dobhoff ng tube Do you want consulting provider notified?: Yes 12/19/22 07:59 Consult Physician Routine Consulting Provider: Erick Coffey Consult Reason/Comments: ICU management Do you want consulting provider notified?: Already Contacted Primary care physician: Gabriel Reyes [facility] Course: HISTORY OF PRESENT ILLNESS This is a 67-year-old male with past medical history of diabetes mellitus type 2 , hypertension, hyperlipidemia, history of UT in 2010 status post stent of the circumflex, known to have triple-vessel coronary artery disease with totally occluded collateralized right coronary artery, status post coronary artery bypass grafting using the left internal mammary artery to the left anterior descending artery, left radial artery from the aorta to the obtuse marginal artery, reverse saphenous vein graft from the aorta to the posterior descending artery, overall preserved left ventricular function, mild aortic stenosis, mild COPD with preoperative FEV1 63% of predicted, obesity, umbilical and epigastric hernia. Patient presented to the hospital due to increasing weakness and slurred speech with history of a stroke a month ago that affected his speech and the left side of his body and was discharged on 11/08. During the hospitalization, Echocardiogram revealed EF of 55-60%, mild LVH, moderate mitral annular calcification, trace mitral regurgitation, moderate aortic stenosis, mild tricuspid regurgitation. Patient underwent MARISELA with Dr. Mckeon which revealed no cardiac source for CVA. Mild mitral and tricuspid regurgitation. Moderate aortic stenosis with mean gradient of 23 mmHg. Patient was evaluated by therapies with recommendations for home. Cardiology planned for outpatient stress testing with Dr. Mckeon and patient was to follow-up with vascular surgery regarding bilateral carotid stenosis. Patient really has had completely cover of his left-sided weakness and slurred speech. Family noticed that patient was having some difficulty with balance and walking and he started complaining of a headache and pressure behind his eye and not feeling well in general. He also was noted have incontinence and did not realize he was incontinent. Then he developed significant weakness on the left side and slurred speech and difficulty swallowing and presented to [facility] for further evaluation. Patient presents to the hospital with increased weakness and slurred speech that had progressed over the last 48 hours along with difficulty ambulating. Initial blood pressure was 109/89. WBC 11.6, hemoglobin 16.4, platelet count 218. Electrolytes are normal, creatinine 0.68. Blood sugar 192. Troponin negative. EKG sinus rhythm with no acute ST changes. CAT scan of the brain revealed no acute findings. Consult in place with vascular surgery with plans for carotid endarterectomy during this hospitalization, consult with cardiology for surgical clearance. 12/17: Patient is seen today on the cardiac stepdown unit. Patient has been seen by cardiology and cleared for carotid endarterectomy knowing that he is at intermediate risk for perioperative complications. Patient was seen by speech therapy and recommended nothing by mouth patient unable to pass a bedside swallow evaluation by speech. Patient is not safe to undergo modified barium swallow at this time. We will plan to place NG tube for patient to get his medications. Patient is also been seen by PT OT. He continues to have difficulty weakness on the left side along with expressive aphasia. Patient has been afebrile, heart rate 91, blood pressure 148/70, pulse ox 90% on room air. Blood sugars are running between 139-180. Neurology has discontinued Plavix is thought to have failed treatment and started Brilinta along with aspirin 81 mg daily, Lipitor 81 mg daily plan for permissive hypertension for the next 24 hours. Carotid ultrasound revealed less than 50% stenosis of the right carotid bifurcation, 50-69% stenosis on the left. 12/18: Patient did have an NG tube placement yesterday because the patient is not able to swallow anything at this point in time, due to his acute ischemic stroke in the right brainstem unless to the left breast and, with an old right occipital stroke, patient will be maintained on Brilinta 90 mg orally twice every day. Aspirin 81 mg once every day, and maximum dose of statin, neurology as well as vascular surgeon is following, patient will require intervention of his significant carotid artery stenosis, patient also is very noncompliant with medications treatment and follow-ups, we will continue to monitor the patient very closely, his daughters were at the bedside and updated about his current condition his prognosis overall is very guarded. 12/19: Patient was moved into the intensive care unit for better monitoring due to his bilateral brainstem stroke right more than left and prior history of right occipital infarct, currently on Brilinta 90 mg twice every day, baby aspirin 81 mg once every day, atorvastatin 80 mg once every day, Zetia 10 mg every day, neurology swallowing, continue tube feeding, continue NG tube, aspiration precautions, discussed with his daughter and his ode status and they decided on NO CODE for now and they will discuss with vascular the options of surgical intervention and the risks vs benefits at this stage of his illness 12/20: Patient is about the same is laying down in bed he appears to be weaker today, he continues to have some coughing, he is not able to handle his secretions, currently has an NG tube in place, he is doing his own suctioning of his oral secretions, he has bee on tube feeding, we will continue to monitor the patient very closely, according to the family the patient is very depressed we will start the patient on Lexapro 5 mg per NG tube once every day. 12/21: Patient is sitting up in bed is about the same, he denies any chest pain, he continues to be aphasic, he continues to have significant issues with handling his secretions, patient was started yesterday on Lexapro 5 mg per NG tube for his depression, the plan is to continue current treatment plan, the family will decide on the vascular surgery I believe he is on standby for carotid endarterectomy on 12/22: Patient is about the same he is not doing better, he continues to have an NG tube in place, this is not a long-term solution at this time, patient will require to have a PEG tube placement for long-term tube feeding, and medication use. Patient is supposed to go for a carotid endarterectomy tomorrow morning, patient has been followed by multiple specialties prognosis very guarded patient is no code at this time he will require long-term care facility post discharge from the hospital. 12/23: Patient is status post right carotid endarterectomy as well as PEG tube placement is laying down in bed in no apparent distress, he denies any chest pain, shortness breath, he continues to be somewhat aphasic, patient appears to be a bit better today than yesterday, the plan is to transition the patient to extended care facility for physical therapy rehabilitation, he continues to be weaker on the left side, more movement in the left lower extremity than the left upper extremity. 12/27: patient is laying down in bed in no apparent distress, he continues to have minimal coughing, he continues to have a significant dysphagia, currently had a PEG tube in place, and underwent right carotid endarterectomy, the plan is to transfer the patient to extended care facility hopefully the next 1 or 2 days for physical therapy and rehabilitation. Patient continues to be somewhat depressed, we will increase Lexapro to 10 mg per PEG tube once every day. 12/28: patient is laying down in bed in no apparent distress, he was seen earlier by speech therapy who did his swallow evaluation again and the patient surprisingly did very well with soft and chopped less with nectar thick liquid we'll continue to work with the patient this point in time, continue the tube feeding, try to introduce appropriate diet for the patient, and supplement with protein drinks and between through the PEG tube, for a goal of the patient to get back on his eating habits, he would be supervision to avoid aspiration. We'll continue to work with physical therapy and rehabilitation for possible inpatient rehabilitation versus extended care facility rehabilitation. 12/29: No new concerns from the patient today. We are still waiting for insurance authorization for inpatient rehab. Patient has been afebrile and hemodynamically stable. He is using a PEG tube for nutrition and continues to be followed by speech therapy. Patient underwent trial of honey second. Consistencies and recommend liquids via spoon. Patient tolerated. Consistencies without signs of aspiration. Patient is also followed by PT and OT with anticipation of rehab once insurance authorization is obtained. He remains afebrile, heart rate in the 70s, blood pressure 121/66 and pulse ox 96% on 3 L nasal cannula. Capillary blood glucose running between 132 and 276. He underwent a CAT scan of abdomen and pelvis without contrast yesterday which revealed PEG tube is in place without evidence of leak. Fat-containing anterior abdomen wall hernia noted. Infrarenal abdominal aortic aneurysm. Anticipate probable discharge tomorrow. 12/30: No new concerns from patient's nurse. Patient had uneventful night. In surance authorization has been obtained this morning for inpatient rehab. Acosta catheter removed and monitor for urinary retention. Patient will be discharged once all arrangements are completed. DISCHARGE DIAGNOSES 1. Post right carotid endarterectomy and PEG tube placement. 2. Acute ischemic CVA in the right brain stem and to a lesser degree in the left brain stem. 3. Acute ischemic stroke with left hemiparesis . 4. Bilateral internal carotid artery stenosis. Post carotid endarterectomy. 5. Dysphagia Due to brainstem stroke status post PEG tube placement 6. Coronary artery disease status post 3 vessel CABG details above as well as previous stenting of circumflex. 7. Hypertension and hypertensive cardiovascular disease. 8. Hyperlipidemia. 9. Mild COPD, stable without exacerbation 10. Diabetes mellitus type 2. 11. Moderate aortic stenosis. 12. Depression. 13. Urinary retention. Continue to monitor. NO CODE status DISCHARGE PLAN: Inpatient rehab at [facility] Greater than 35 minutes was utilized and coordinating patient's discharge. Impression and plan of care have been directed as dictated by the signing physician. Rosalia Burns nurse practitioner acting as scribe for signing physician. Patient Condition at Discharge: Fair Plan - Discharge Summary Discharge Rx Participant: Yes New Discharge Prescriptions: New Ticagrelor [Brilinta] 90 mg PO BID tab Metoprolol Tartrate [Lopressor] 50 mg PO BID tab INSULIN ASPART (NovoLOG) [NovoLOG (formulary)] 0 unit SQ Q6HR each Pantoprazole [Protonix] 40 mg PO AC-BRKFST tab Escitalopram [Lexapro] 10 mg PO DAILY tab traMADol HCl [Ultram] 50 mg PO QID PRN tab PRN Reason: Pain Insulin Detemir (Levemir) [Levemir] 8 unit SQ HS each Scopolamine 1 mg/72 Hr Patch [TransDerm Scop] 1 patch TRANSDERM Q72H patch Acetaminophen Tab [Tylenol] 650 mg PO Q6HR PRN tab PRN Reason: Mild Pain Or Fever > 100.5 Aspirin 81 mg PO DAILY tab Continue sitaGLIPtin [Januvia] 100 mg PO DAILY Spironolactone 25 mg PO DAILY Insulin Aspart [Insulin Aspart Flexpen] 7 unit SQ AC-TID Dapagliflozin Propanediol [Farxiga] 5 mg PO DAILY icosapent ethyL [Icosapent Ethyl] 1 gm PO BID Ezetimibe [Zetia] 10 mg PO DAILY gemfibroziL [Lopid] 600 mg PO AC-BID Atorvastatin [Lipitor] 80 mg PO HS #30 tab Discontinued Clopidogrel [Plavix] 75 mg PO DAILY #30 tab Insulin Detemir [Levemir Flexpen] 15 units SQ DAILY #5 pen metFORMIN HCL 500 mg PO BID Aspirin 325 mg PO DAILY tab Metoprolol Tartrate [Lopressor] 100 mg PO BID #60 tab Discharge Medication List Insulin Aspart [Insulin Aspart Flexpen] 7 unit SQ AC-TID 11/04/22 [History] Dapagliflozin Propanediol [Farxiga] 5 mg PO DAILY 11/05/22 [History] Ezetimibe [Zetia] 10 mg PO DAILY 11/05/22 [History] Spironolactone 25 mg PO DAILY 11/05/22 [History] gemfibroziL [Lopid] 600 mg PO AC-BID 11/05/22 [History] icosapent ethyL [Icosapent Ethyl] 1 gm PO BID 11/05/22 [History] sitaGLIPtin [Januvia] 100 mg PO DAILY 11/05/22 [History] Atorvastatin [Lipitor] 80 mg PO HS #30 tab 11/08/22 [Rx] Acetaminophen Tab [Tylenol] 650 mg PO Q6HR PRN tab 12/24/22 [Rx] INSULIN ASPART (NovoLOG) [NovoLOG (formulary)] 0 unit SQ Q6HR each 12/24/22 [Rx] Insulin Detemir (Levemir) [Levemir] 8 unit SQ HS each 12/24/22 [Rx] Metoprolol Tartrate [Lopressor] 50 mg PO BID tab 12/24/22 [Rx] Pantoprazole [Protonix] 40 mg PO AC-BRKFST tab 12/24/22 [Rx] Scopolamine 1 mg/72 Hr Patch [TransDerm Scop] 1 patch TRANSDERM Q72H patch 12/24/22 [Rx] Ticagrelor [Brilinta] 90 mg PO BID tab 12/24/22 [Rx] Aspirin 81 mg PO DAILY tab 12/30/22 [Rx] Escitalopram [Lexapro] 10 mg PO DAILY tab 12/30/22 [Rx] traMADol HCl [Ultram] 50 mg PO QID PRN tab 12/30/22 [Rx] Follow up Appointment(s)/Referral(s): Rama Acosta DO [STAFF PHYSICIAN] - 3 Weeks Aniceto Dominguez DO [STAFF PHYSICIAN] - 1 Week Cody Moyer MD [STAFF PHYSICIAN] - 1 Week Rickie Reyes MD [STAFF PHYSICIAN] - 1 Week Patient Instructions/Handouts: Ischemic Stroke (GEN), Carotid Endarterectomy (DC) Activity/Diet/Wound Care/Special Instructions: Patient cleared from vascular and neurology services for discharge. Patient to continue for now on aspirin 81 mg daily and brilinta 90 mg BID with further recommendations from vascular surgery. Patient to follow up with Dr. Acosta in the office in 2 to 3 weeks. Plan for patient to undergo left endarectomy outpatient with Dr. Acosta Follow up with neurology on discharge Patient requires ongoing [employer] services and underwent PEG tube placement. Currently on glucerna 1.2 rate of 60 mls/hr with 50 mL of free water every 4 hours and to continue with tube feeds at rehab. Per Dietary; tube feedings to start at 20mls/hr and to advance by 20 mls/hr every 8 hours until at goal of 60 mls/hr. Patient to discharge to inpatient rehab at [facility]. Recommend to follow up labs in 2 to 3 days. Discharge Disposition: OTHER INSTITUTION NOT DEFINED
[2022-12-30 11:28] LABS: Glucose,Whole Blood 153 mg/dL (70-110)
[2022-12-30 12:40] VITALS: BMI 29.1
[2022-12-30 14:09] VITALS: BP 133/71; PULSE 72; TEMP 98.1
== END 2022-12-30 14:26 | DRG 38 ==
LOC: EC 01:20 → 3SCARD 03:55 → 2SICU 12-18 16:24 → 4SSUR 12-24 17:33
PROVIDERS: ADMIT Internal Medicine; ATTEND Internal Medicine
PROC: 0DH67UZ Insertion of Feeding Device into Stomach, Via Natural or Artificial Opening (ICD-10-PCS; 2022-12-17)
PROC: 3E0G76Z Introduction of Nutritional Substance into Upper GI, Via Natural or Artificial Opening (ICD-10-PCS; 2022-12-17)
PROC: 3E0G76Z Introduction of Nutritional Substance into Upper GI, Via Natural or Artificial Opening (ICD-10-PCS; 2022-12-23)
PROC: 03UK0KZ Supplement Right Internal Carotid Artery with Nonautologous Tissue Substitute, Open Approach (ICD-10-PCS; principal; 2022-12-23 07:30)
PROC: 03CK0ZZ Extirpation of Matter from Right Internal Carotid Artery, Open Approach (ICD-10-PCS; principal; 2022-12-23 07:30)
PROC: 0DH63UZ Insertion of Feeding Device into Stomach, Percutaneous Approach (ICD-10-PCS; 2022-12-23 07:30)
DX: I63.9 Cerebral infarction, unspecified (principal); E44.1 Mild protein-calorie malnutrition; I69.354 Hemiplegia and hemiparesis following cerebral infarction affecting left non-dominant side; R41.4 Neurologic neglect syndrome; J98.11 Atelectasis; I11.9 Hypertensive heart disease without heart failure; I25.82 Chronic total occlusion of coronary artery; I95.9 Hypotension, unspecified; I25.10 Atherosclerotic heart disease of native coronary artery without angina pectoris; J44.9 Chronic obstructive pulmonary disease, unspecified; I71.43 Infrarenal abdominal aortic aneurysm, without rupture; E11.65 Type 2 diabetes mellitus with hyperglycemia; I65.23 Occlusion and stenosis of bilateral carotid arteries; Z66 Do not resuscitate; Z79.4 Long term (current) use of insulin; R13.10 Dysphagia, unspecified; R47.01 Aphasia; R47.1 Dysarthria and anarthria; T50.906A Underdosing of unspecified drugs, medicaments and biological substances, initial encounter; I08.3 Combined rheumatic disorders of mitral, aortic and tricuspid valves; E78.5 Hyperlipidemia, unspecified; R33.9 Retention of urine, unspecified; R32 Unspecified urinary incontinence; K43.9 Ventral hernia without obstruction or gangrene; F32.A Depression, unspecified; I25.2 Old myocardial infarction; H91.90 Unspecified hearing loss, unspecified ear; E66.9 Obesity, unspecified; Z68.29 Body mass index [BMI] 29.0-29.9, adult; Z91.128 Patient's intentional underdosing of medication regimen for other reason; Z91.199 Patient's noncompliance with other medical treatment and regimen due to unspecified reason; Z79.82 Long term (current) use of aspirin; Z79.84 Long term (current) use of oral hypoglycemic drugs; Z79.02 Long term (current) use of antithrombotics/antiplatelets; Z79.899 Other long term (current) drug therapy; Z87.891 Personal history of nicotine dependence; Z95.1 Presence of aortocoronary bypass graft; Z95.5 Presence of coronary angioplasty implant and graft; Z95.2 Presence of prosthetic heart valve; Z88.0 Allergy status to penicillin; Z82.49 Family history of ischemic heart disease and other diseases of the circulatory system
CPT/HCPCS: 36415; 43246; 70450; 70496; 70498; 70551; 71045; 74018; 74176; 74230; 80048; 80053; 80061; 83036; 83735; 84484; 85025; 85027; 85610; 85730; 88304; 88311; 93005; 93306; 93880; 94760; 96360; 96361; 99285